=== PATIENT | female | born 1970 | race Two or more races ===

== ENCOUNTER 2020-04-27 07:02 | Outpatient (REF) | payer OTHER, SELFPAY ==
[2020-04-27 07:22] LABS: MANUAL DIFF FLAG NO
[2020-04-27 07:26] LABS: Basophils Percent Auto 0.4 % (0-2); Eosinophils Absolute Auto 0.2 X10*3/uL (0.0-0.4); Eosinophils Percent Auto 2.6 % (0-4); Hematocrit 43.3 % (37-47); Hemoglobin 14.3 g/dl (12.0-16.0); Imm Gran Abs Auto 0.02 X10*3/uL (0.00-0.03); Imm Gran Pct Auto 0.2 % (0.0-0.4); Lymphocytes Absolute Auto 2.6 X10*3/uL (1.2-4.9); Lymphocytes Percent Auto 32.8 % (20-40); Mean Corpuscular Hemoglobin 28.6 pg (27.0-33.0); Mean Corpuscular Volume 86.6 fL (80-98); Mean Platelet Volume 9.9 fL (9.4-12.3); Monocytes Absolute Auto 0.5 X10*3/uL (0.1-1.2); Monocytes Percent Auto 6.6 % (2-11); Neutrophils Absolute Auto 4.6 X10*3/uL (2.0-8.3); Neutrophils Percent Auto 57.4 % (45-73); Platelet Count 307 X10*3/uL (160-400); Red Cell Distribution Width 12.2 % (11.0-16.0)
[2020-04-27 07:56] LABS: Alanine Aminotransferase 21 U/L (0-31); Albumin Level 4.1 g/dL (3.5-5.0); Alkaline Phosphatase 98 U/L (39-117); Anion Gap 11 (12-20); Aspartate Amino Transferase 17 U/L (5-31); Bilirubin Total 0.4 mg/dL (0.0-1.0); Blood Urea Nitrogen 18 mg/dL (9-16); Calcium 9.5 mg/dL (8.4-10.2); Carbon Dioxide 28 mmol/L (22-29); Chloride 105 mmol/L (96-108); Cholesterol 271 mg/dL; Estimated Glomerular Filt Rate > 60; Glucose Fasting 107 mg/dL (60-99); HDL Cholesterol 50 mg/dL; LDL Cholesterol Calculated 160 mg/dl; Potassium 4.2 mmol/l (3.3-5.1); Sodium 140 mmol/L (135-145); Triglycerides 309 mg/dL
[2020-04-27 08:17] LABS: T4 Thyroxine 8.3 ug/dL (4.5-12.0); Thyroid Stimulating Hormone 2.07 mIU/mL (0.32-4.0); Vitamin D 25-OH Total 26.5 ng/mL (>30)
[2020-04-27 09:05] LABS: Folate 11.4 ng/mL (> or = 4.0); Vitamin B12 476 pg/mL (200-900)
== END 2020-04-27 07:03 | disposition home or self-care (01) ==
LOC: HO.LAB 07:02
PROVIDERS: PCP Internal Medicine; Visit Provider Internal Medicine
DX: E78.00 Pure hypercholesterolemia, unspecified (principal); K21.9 Gastro-esophageal reflux disease without esophagitis; F41.9 Anxiety disorder, unspecified; J30.9 Allergic rhinitis, unspecified; R73.01 Impaired fasting glucose
CPT/HCPCS: 36415; 80053; 80061; 82306; 82607; 82746; 84436; 84443; 85025

== ENCOUNTER 2020-05-18 07:38 | Outpatient (REF) | payer OTHER, SELFPAY ==
[2020-05-18 08:01] VITALS: BMI 26.7
[2020-05-18 08:02] VITALS: BP 120/68; PULSE 87; RESP 16; TEMP 36.6; O2SAT 98
[2020-05-18 08:55] VITALS: BP 105/72; PULSE 85; RESP 16; O2SAT 96
--- NOTE | 2020-05-18 09:41 | OP_ITS ---
SURGEON: Gee Pickens MD INDICATIONS: The patient is a 49-year-old female, who I had seen in the office because of the scalp cyst that she wanted removed. This measured about 1 cm in diameter cyst, one on the occipital area and one on the parietal area posteriorly. She understood technique of excision under local anesthesia. She was aware of the risks, benefits, and alternatives. PREOPERATIVE DIAGNOSIS: Scalp cyst x2. POSTOPERATIVE DIAGNOSIS: Scalp cyst x2. PROCEDURE PERFORMED: Excision of scalp cyst x2 under local anesthesia. ESTIMATED BLOOD LOSS: COMPLICATIONS: ANESTHESIA: ASSISTANTS: SPECIMENS: DESCRIPTION OF PROCEDURE: She was brought to the minor procedure room and placed in prone position. The area of the cyst was prepped and draped. Lidocaine 1% was used for local anesthesia. We started with the cyst on the occipital area. This cyst was infiltrated with lidocaine 1%. I made short incision in the skin overlying the cyst using blade #15, extended to the full-thickness skin and part of subcutaneous entered, the cyst capsule was visualized. I gently dissected the cyst capsule using sharp dissection with the Metzenbaum scissors until this was delivered and sent as specimen. I closed the incision with full-thickness nylon 3-0 interrupted sutures. We then proceeded to do the second cyst. Again, this area was prepped and draped. Lidocaine 1% was used for local anesthesia. An incision was made in the skin overlying this cyst. This was done using blade #15, it was carried down to full-thickness skin and subcutaneous fat. We excised the entire cyst with the capsule intact with sharp dissection using the scissors. This was all sent as specimen. I closed the incision with full-thickness nylon 3-0 sutures. Bacitracin dressings were applied on both incisions. She tolerated procedure well. There were no complications noted. She will be seen in the office for removal of sutures in about 2 weeks. She was given wound care instructions. MD EULA Gimenez/BENJAMINL / [id number]
== END 2020-05-18 07:39 | disposition home or self-care (01) ==
LOC: HO.MS 07:38
PROVIDERS: PCP Internal Medicine; Visit Provider Surgery
PROC: (CPT 11422; principal; 2020-05-18 08:00)
DX: L72.11 Pilar cyst (principal)
CPT/HCPCS: 11422; 11421; 88304

== ENCOUNTER 2020-05-22 12:02 | Outpatient (REF) | payer OTHER, SELFPAY ==
--- NOTE | 2020-05-22 | MM_ITS ---
EXAMINATION: MM DIAGNOSTIC DIGITAL BREAST TOMOSYNTHESIS, BILATERAL CLINICAL INFORMATION: Left breast screening. Right breast calcifications. The lifetime risk of breast cancer based on the Tyrer-Cuzick Model is 6.5%. COMPARISON: Mammography: 05/18/2019 and studies dating back to 03/23/2012. TECHNIQUE: Digital breast tomosynthesis is performed in both the craniocaudal and mediolateral oblique views along with computer-aided detection (CAD). Synthesized 2D images are generated from the tomosynthesis. Additional magnification views performed in mediolateral oblique and 90-degree mediolateral views. FINDINGS: There are scattered areas of fibroglandular density (ACR BI-RADS breast composition Category b). There is multiplicity and bilaterality of calcifications which are similar in appearance to previous studies. No new abnormal dominant mass or suspicious grouping of microcalcifications identified. Results are provided to the patient at time of visit by the technologist. MM/MM tomosynthesis diagnostic BI IMPRESSION: There are no significant changes from prior study. ASSESSMENT: BI-RADS 2: Benign. RECOMMENDATION: Routine annual mammography screening due in 12 months. This patient's information was entered into a reminder system with a target due date for their next mammogram.
== END 2020-05-22 12:03 | disposition home or self-care (01) ==
LOC: HO.MAMMO 12:02
PROVIDERS: PCP Internal Medicine; Visit Provider Internal Medicine
DX: R92.1 Mammographic calcification found on diagnostic imaging of breast (principal)
CPT/HCPCS: 77062; 77066

== ENCOUNTER → 2020-05-31 12:47 | Outpatient (REF) | payer OTHER, SELFPAY ==
--- NOTE | 2020-05-31 12:53 | ECG_ITS ---
Hook-up date: 2020-05-31 13:11:00 Duration: 24:54:00 Test Indications: PALPITATIONS Medications: 301061 QRS complexes * Ventricular ectopics which represent % of total QRS comp. 1 Supraventricular ectopics which represent <1 % of total QRS comp. * Paced QRS complexs which represent % of total QRS comp. VENTRICULAR ECTOPY * Isolated * Bigeminal Cycles * Couplets * Runs * Beats in Runs * Beats LONGEST at * BPM at :: -- * Beats FASTEST at * BPM at :: -- SUPRAVENTRICULAR ECTOPY 1 Isolated 0 Couplets 0 Runs 0 Beats in Runs * Beats LONGEST at * BPM at :: -- * Beats FASTEST at * BPM at :: -- HEART RATES 48 MIN at 03:10:30 2020-06-01 82 AVG 142 MAX at 07:16:55 2020-06-01 LONGEST RR 1.4240 secs at 03:19:39 2020-06-01 S-T LEVELS Channel 1 - 128 mm at 13:11:00 2020-05-31 - 128 mm at 13:11:00 2020-05-31 Channel 2 - 128 mm at 13:11:00 2020-05-31 - 128 mm at 13:11:00 2020-05-31 Channel 3 - 128 mm at 03:23:01 -- - 128 mm at 03:23:01 Underlying rhythm is sinus; Average ventricular rate 82/min; range 48-142/min; Sinus tachycardia noted but no other arrhythmias; Some correlation between sinus tachycardia and palpitations, but no correlation noted for chest pain symptoms. Referred By: Gigi Barrow Overread By: MISAEL SOLORZANO
== END ==
LOC: HO.CARD 12:47
PROVIDERS: Visit Provider Internal Medicine
DX: R00.2 Palpitations (principal); Z87.2 Personal history of diseases of the skin and subcutaneous tissue
CPT/HCPCS: 93225; 93226; 99212

== ENCOUNTER 2020-06-30 14:00 | Outpatient (RCR) | payer OTHER, SELFPAY ==
--- NOTE | 2020-08-21 09:34 | MHC.PT.DC ---
[facility] Office [place] Office [place] Office [address] Fransisco Dewitt [address] [phone] F: [phone] F: [phone] F: [phone] F: [phone] Physical Therapy Discharge Report Diagnosis: NECK PAIN Date of Surgery: N/A Date of Evaluation: 04/10/20 Date of Discharge: 06/30/20 Treatments to Date: 18 Cancellations to Date: 2 No Shows to Date: 2 Discharge Status: Improved Function Independent with HEP Discharge Summary: OVERALL BETTER SINCE SOC, HAS INCREASED AWARENESS POSTURE AND NECK CARE, HAS HEP AND INFO FOR [facility] [ End ] Electronically signed by: SUE ESQUIVEL PT Please sign and return to therapist. Thank you for your referral.
== END 2020-08-16 13:37 | disposition other institution (70) ==
LOC: HO.PT 14:00
PROVIDERS: Visit Provider Internal Medicine
DX: M54.2 Cervicalgia (principal)
CPT/HCPCS: 97012; 97014; 97033; 97035; 97110; 97140

== ENCOUNTER 2020-07-05 12:48 | Outpatient (REF) | payer OTHER, SELFPAY ==
--- NOTE | 2020-07-05 12:52 | XR_ITS ---
EXAMINATION: XR CHEST CLINICAL INFORMATION: Shortness of breath COMPARISON: Previous chest x-ray October 2017 TECHNIQUE: 2 views of the chest were obtained. FINDINGS: No significant abnormality is noted involving the heart, lungs, mediastinum, bony thorax or soft tissues. XR/XR chest 2V IMPRESSION: Unremarkable examination.
== END 2020-07-05 12:49 | disposition home or self-care (01) ==
LOC: HO.XRAY 12:48
PROVIDERS: Visit Provider Internal Medicine
DX: R06.02 Shortness of breath (principal)
CPT/HCPCS: 71046

== ENCOUNTER → 2020-07-07 08:22 | Outpatient (BNVA) | payer OTHER, SELFPAY | PROVIDERS: PCP Internal Medicine; Referring Provider Internal Medicine; Visit Provider Internal Medicine Gastroenterology | DX: Z76.89 Persons encountering health services in other specified circumstances (principal) ==

== ENCOUNTER 2020-07-10 14:44 | Outpatient (REF) | payer OTHER, SELFPAY ==
--- NOTE | 2020-07-10 | PFT_ITS ---
FLOWS: FEV1 of 97% of predicted at 2.72 L. FVC 94% of predicted at 3.34 L. FEV1 to FVC ratio of 0.81. No bronchodilator response. LUNG VOLUMES: Total lung capacity 96% of predicted at 4.86 L. Residual volume 86% of predicted at 1.56 L. Slow vital capacity 101% of predicted at 3.30 L. Expiratory reserve volume 50% of predicted at 0.52 L. Diffusion capacity is mildly decreased, diffusion capacity corrects to normal after adjustment for alveolar ventilation. In comparison to pulmonary function test performed in January of 2015, FVC, FEV1, TLC, and ERV have been without significant changes; residual volume has increased by 0.39 L; slow vital capacity has decreased by 0.29 L; diffusion capacity has decreased by 1.79 mL/minute/mmHg. IMPRESSION: No obstructive or restrictive ventilatory defect. No bronchodilator response. Decreased expiratory reserve volume suggests extrathoracic restriction likely secondary to abdominal obesity. MD MAIKOL Loera/MODL / [id number] MTDD
== END 2020-07-10 14:45 | disposition home or self-care (01) ==
LOC: HO.RESP 14:44
PROVIDERS: PCP Internal Medicine; Visit Provider Internal Medicine
DX: R06.02 Shortness of breath (principal)
CPT/HCPCS: 94060; 94727; 94729

== ENCOUNTER 2020-08-03 07:13 | Outpatient (REF) | payer OTHER, SELFPAY ==
[2020-08-03 08:28] LABS: Alanine Aminotransferase 23 U/L (0-31); Albumin Level 4.3 g/dL (3.5-5.0); Alkaline Phosphatase 72 U/L (39-117); Anion Gap 15 (12-20); Aspartate Amino Transferase 17 U/L (5-31); Bilirubin Total 0.7 mg/dL (0.0-1.0); Blood Urea Nitrogen 23 mg/dL (9-16); Calcium 9.7 mg/dL (8.4-10.2); Carbon Dioxide 27 mmol/L (22-29); Chloride 104 mmol/L (96-108); Cholesterol 189 mg/dL; Estimated Glomerular Filt Rate > 60; Glucose Random 110 mg/dL (60-115); HDL Cholesterol 53 mg/dL; LDL Cholesterol Calculated 109 mg/dl; Potassium 4.7 mmol/l (3.3-5.1); Sodium 141 mmol/L (135-145); Total Protein 7.3 g/dL (6.5-8.0); Triglycerides 137 mg/dL
[2020-08-03 08:43] LABS: Estimated Average Glucose 120 mg/dL; Hemoglobin A1c % 5.8 %
== END 2020-08-03 07:14 | disposition home or self-care (01) ==
LOC: HO.LAB 07:13
PROVIDERS: PCP Internal Medicine; Visit Provider Internal Medicine
DX: R73.02 Impaired glucose tolerance (oral) (principal); E78.00 Pure hypercholesterolemia, unspecified
CPT/HCPCS: 36415; 80053; 80061; 83036

== ENCOUNTER 2020-08-18 13:14 | Outpatient (REF) | payer OTHER, SELFPAY ==
--- NOTE | 2020-08-18 13:24 | XR_ITS ---
EXAMINATION: XR TOES, RIGHT CLINICAL INFORMATION: Pain right toe. COMPARISON: None TECHNIQUE: 3 views of the right toes were obtained. FINDINGS: There are no fractures or dislocations. No joint effusion is identified. No bone, joint or soft tissue abnormality is demonstrated. XR/XR toe RT min 2V IMPRESSION: Unremarkable right fifth toe exam.
== END 2020-08-18 13:15 | disposition home or self-care (01) ==
LOC: HO.XRAY 13:14
PROVIDERS: Visit Provider Internal Medicine
DX: M79.674 Pain in right toe(s) (principal)
CPT/HCPCS: 73660

== ENCOUNTER → 2020-08-30 08:16 | Outpatient (BNVA) | payer OTHER, SELFPAY | PROVIDERS: PCP Internal Medicine; Visit Provider Internal Medicine Gastroenterology ==

== ENCOUNTER 2020-09-25 07:37 | Outpatient (REF) | payer OTHER, SELFPAY ==
--- NOTE | ~2020-09-25 | US_ITS ---
EXAMINATION: US ABDOMEN COMPLETE CLINICAL INFORMATION: Abdominal distention. COMPARISON: Renal ultrasound dated 05/27/2017. Ultrasound abdomen complete dated 09/09/2016. KUB dated 10/14/2013. CT abdomen and pelvis without contrast dated 12/20/2008. TECHNIQUE: Real-time imaging of the abdominal viscera. FINDINGS: PANCREAS: Not well visualized due to bowel gas. ABDOMINAL AORTA: The proximal, mid, and distal segments are normal in caliber. INFERIOR VENA CAVA: Visualized portions are normal. LIVER: The liver is normal in size. The liver contour is normal. Liver echotexture is normal. No focal hepatic lesion. There is no intrahepatic biliary duct dilatation seen. GALLBLADDER: Normal. The gallbladder is physiologically distended without evidence of stones, sludge, polyps, wall thickening or pericholecystic fluid. COMMON BILE DUCT: Normal in caliber measuring 0.4 cm in diameter. RIGHT KIDNEY: Normal. No hydronephrosis. No renal calculi or focal parenchymal lesions. The kidney measures 11.2 cm in maximum dimension. LEFT KIDNEY: Normal. No hydronephrosis. No renal calculi or focal parenchymal lesions. The kidney measures 11.0 cm in maximum dimension. SPLEEN: Normal. The spleen measures 9.6 cm in maximum dimension. FREE FLUID: None. US/US abdomen complete IMPRESSION: Limited visualization of the pancreas otherwise unremarkable exam.
== END 2020-09-25 07:38 | disposition home or self-care (01) ==
LOC: HO.US 07:37
PROVIDERS: Visit Provider Internal Medicine Gastroenterology
DX: R10.9 Unspecified abdominal pain (principal); R14.0 Abdominal distension (gaseous)
CPT/HCPCS: 76700

== ENCOUNTER → 2020-10-06 08:21 | Outpatient (BNVA) | payer OTHER, SELFPAY | PROVIDERS: PCP Internal Medicine; Visit Provider Internal Medicine Gastroenterology ==

== ENCOUNTER 2020-10-12 07:24 | Emergency (ER) | payer OTHER, SELFPAY ==
--- NOTE | ~2020-10-12 | CT_ITS ---
EXAMINATION: CT ABDOMEN AND PELVIS WITH CONTRAST CLINICAL INFORMATION: Right-sided abdominal tenderness/pain. Bloating. COMPARISON: CT abdomen and pelvis 04/04/2008 pelvic ultrasound 12/24/2018, renal ultrasound 05/27/2017 TECHNIQUE: Multidetector volumetric images were obtained from the superior aspect of the liver through the pubic symphysis following administration 85 mL of Omnipaque 350 intravenous contrast. Sagittal and coronal reformatted images were obtained on the technologist's workstation. Oral contrast: No This CT examination was performed using dose optimization techniques as appropriate, variously including the following: *Automated exposure control *Adjustment of mA and/or kV according to patient size (this includes techniques or standardized protocols for targeted exams where dose is matched to indication/reason for exam; i.e. extremities or head) *Use of iterative reconstruction technique DLP: 492 mGy-cm FINDINGS: LUNG BASES: The visualized lung bases are unremarkable. LIVER, GALLBLADDER, AND BILIARY TREE: The liver is normal in size, shape, and attenuation. No focal hepatic lesion or biliary ductal dilatation is present. The gallbladder is unremarkable with no evidence of radiopaque gallstones, gallbladder wall thickening, or obvious pericholecystic inflammatory changes. PANCREAS: Unremarkable. SPLEEN: Unremarkable. ADRENAL GLANDS: Unremarkable. KIDNEYS AND URETERS: The kidneys are normal in size, shape, and attenuation. No hydronephrosis, hydroureter, or calculi seen. No perinephric stranding. BLADDER: Normal partially distended bladder contour. GASTROINTESTINAL TRACT: The small and large bowel are unremarkable. The appendix is unremarkable. ABDOMINAL WALL: No significant hernia is appreciated. LYMPH NODES: Normal. VASCULAR: Minimal eccentric wall calcification of the aorta. The aorta and its branch vessels are otherwise unremarkable. PELVIC VISCERA: The uterus and adnexa are unremarkable. There is trace pelvic fluid which may be physiologic OSSEOUS STRUCTURES: Unremarkable. CT/CT abdomen pelvis w con IMPRESSION: There is trace pelvic free fluid which may be physiologic in a patient of this age. Essentially no acute abnormality of the abdomen or pelvis is identified to account for the patient's current presentation.
[2020-10-12 07:51] VITALS: BP 103/59; PULSE 81; RESP 16; TEMP 37; O2SAT 96; BMI 25.6
[2020-10-12 08:25] LABS: MANUAL DIFF FLAG NO
[2020-10-12 08:26] LABS: Basophils Percent Auto 0.3 % (0-2); Eosinophils Absolute Auto 0.1 X10*3/uL (0.0-0.4); Eosinophils Percent Auto 1.3 % (0-4); Hemoglobin 14.4 g/dl (12.0-16.0); Imm Gran Abs Auto 0.02 X10*3/uL (0.00-0.03); Imm Gran Pct Auto 0.3 % (0.0-0.4); Lymphocytes Absolute Auto 2.4 X10*3/uL (1.2-4.9); Lymphocytes Percent Auto 31.3 % (20-40); Mean Corpuscular HGB Conc 32.7 g/dl (31.0-35.0); Mean Corpuscular Hemoglobin 28.6 pg (27.0-33.0); Mean Corpuscular Volume 87.5 fL (80-98); Mean Platelet Volume 9.8 fL (9.4-12.3); Monocytes Absolute Auto 0.4 X10*3/uL (0.1-1.2); Monocytes Percent Auto 5.3 % (2-11); Neutrophils Absolute Auto 4.8 X10*3/uL (2.0-8.3); Neutrophils Percent Auto 61.5 % (45-73); Platelet Count 293 X10*3/uL (160-400); Red Blood Count 5.03 X10*6/uL (4.20-5.50); Red Cell Distribution Width 12.3 % (11.0-16.0); White Blood Count 7.8 X10*3/uL (4.8-10.8)
--- NOTE | 2020-10-12 08:35 | ED.ABDPAIN ---
HPI - Abdominal Pain General Chief Complaint: Abdominal Pain Stated Complaint: abd pain Time Seen by Provider: 10/12/20 08:23 Source: patient Mode of arrival: ambulatory History of Present Illness HPI narrative: 49-year-old female with a past medical history of anxiety, erosive esophagitis, GERD, hemorrhoids, hyperlipidemia, glucose tolerance, IBS, migraines, vitamin-B deficiency, presenting to the ED complaining of acute on chronic abdominal pain/bloating with intermittent constipation and associated nausea. Admits to taking OTC medications and prescribed medications from Telehealth GI visit without relief. Last BM this morning. Denies vomiting, diarrhea, dysuria/hematuria, frequency, vaginal bleeding/discharge Of note patient recently saw GI in 10/06, was started on Flagyl for bloating, a probiotic, and pantoprazole, however reports has been noncompliant with Flagyl due to side effects of tachycardia. Abdomen ultrasound on 09/25/2020 WNL Related Data Home Medications Medication Instructions Recorded Confirmed ascorbic acid (vitamin C) 1,000 mg 1 g PO DAILY tab 04/27/20 10/06/20 tablet blood pressure monitor #1 ea 04/27/20 10/06/20 cetirizine 10 mg tablet 10 mg PO DAILY 04/27/20 10/06/20 Previous Rx's Medication Instructions Recorded lactobacillus combination no.9 4 4,000 mmu cells PO DAILY 30 Days 07/07/20 billion cell capsule #30 cap simethicone 80 mg chewable tablet 80 mg PO TID-QID PRN 30 Days #120 07/07/20 tab MDD 6 cholecalciferol (vitamin D3) 50 50 mcg PO DAILY #30 tab 08/15/20 mcg (2,000 unit) tablet fluticasone propionate 50 2 spray INTRANASAL DAILY PRN #16 ml 08/24/20 mcg/actuation nasal spray,suspension magnesium oxide 400 mg PO DAILY 30 Days #30 tab 08/30/20 pantoprazole 40 mg tablet,delayed 40 mg PO DAILY #30 tab 08/31/20 release atorvastatin 10 mg tablet 10 mg PO DAILY #90 tab 09/12/20 alprazolam 0.25 mg tablet 0.25 mg PO DAILY #20 tab 09/15/20 Saccharomyces boulardii 250 mg 250 mg PO BID 30 Days #60 cap 10/06/20 capsule metronidazole 250 mg tablet 250 mg PO Q8H 10 Days #30 tab 10/06/20 fenofibrate 160 mg tablet 160 mg PO DAILY #30 tab 10/08/20 dicyclomine 20 mg PO QID PRN #14 tab 10/12/20 Allergies Allergy/AdvReac Type Severity Reaction Status Date / Time latex [Latex] Allergy Mild SWELLING/IT Verified 10/06/20 08:22 ROSSANA Sulfa (Sulfonamide Allergy Mild SWELLING/ITCHING, Verified 10/06/20 08:22 Antibiotics) pruritis sulfamethoxazole Allergy Unknown ITCHY/HIVES Verified 10/06/20 08:22 [From BACTRIM] trimethoprim [From BACTRIM] Allergy Unknown ITCHY/HIVES Verified 10/06/20 08:22 metoclopramide [From REGLAN] AdvReac Unknown AGITATION Verified 10/06/20 08:22 Review of Systems Review of Systems Constitutional: No Fever, No Chills Cardiovascular: No Chest Pain, No SOB Respiratory: No Cough Gastrointestinal: + Nausea, No Vomiting, No Diarrhea, + Constipation, + Abdominal pain Genitourinary: No irregular bleeding, No Dysuria, No Flank Pain, No Urinary Flow Changes Musculoskeletal: No joint pain, No Myalgias, No Joint Swelling Skin: No Skin Lesions, No rash Yes all other systems are reviewed and are negative Physical Exam Vital Signs: Vital Signs: Last Vital Signs Temp 98.6 F 10/12/20 07:51 Pulse 80 10/12/20 10:00 Resp 16 10/12/20 10:00 BP 118/63 10/12/20 10:00 Pulse Ox 98 10/12/20 10:00 Body Mass Index 25.6 Const: General: cooperative, healthy appearing, comfortable and no acute distress Orientation/consciousness: patient oriented x3 Limitations: no limitations HENMT: Head: Yes normal to inspection Ears: hearing grossly normal bilaterally General nose exam: Normal external nose present Face and sinus: Yes normal facial exam Eyes: General: appearance normal, both eyes and all related structures EOM: EOMs intact bilaterally Neck: Neck: Yes normal visual inspection Resp: Effort & Inspection: normal respiratory effort Cardio: Rate: regular rate GI: Inspection: Yes normal to inspection Palpation (GI): Soft to palpation, Tenderness to palpation present (GI) in the epigastrum and in the RLQ, no guarding and not rigid : General: Yes no CVA tenderness Back/Spine/Pelvis: Back: no CVA tenderness Skin: Rashes: no rashes Wounds: no wounds Neuro: General: patient oriented x3 Gait exam (Neuro): Normal gait present Extrem: General: Yes normal to inspection Course Course Course Narrative: -no leukocytosis, labs otherwise unremarkable, UA negative -1216-- CT abdomen pelvis w con IMPRESSION: There is trace pelvic free fluid which may be physiologic in a patient of this age. Essentially no acute abnormality of the abdomen or pelvis is identified to account for the patient's current presentation. >>results discussed with patient including worrisome signs and symptoms and strict return precautions. Patient is to follow-up with her PCP/GI, an OBGYN. She verbalized understanding and feels safe for discharge home MDM - Abdominal Pain MDM Narrative Medical decision making narrative: 49-year-old female with a past medical history of anxiety, erosive esophagitis, GERD, hemorrhoids, hyperlipidemia, glucose tolerance, IBS, migraines, vitamin-B deficiency, presenting to the ED complaining of acute on chronic abdominal pain/bloating with intermittent constipation and associated nausea. On exam VSS, NAD/well-appearing, abdomen soft w/RLQ/epigastric TTP, no rebound or guarding. Concern for constipation vs IBS vs GERD/gastritis vs appendicitis. Lower concern for SBO with BM today, or diverticulitis. Rule UTI. Low concern for renal stone/pyelo Plan: Labs, UA, CT AP, IVF, symptomatic treatment, reassess Lab Data Result diagrams: 10/12/20 08:19 10/12/20 08:18 Labs: Lab Results 10/12/20 10/12/20 10/12/20 Range/Units 08:18 08:18 08:19 WBC 7.8 (4.8-10.8) X10*3/uL RBC 5.03 (4.20-5.50) X10*6/uL Hgb 14.4 (12.0-16.0) g/dl Hct 44.0 (37-47) % MCV 87.5 (80-98) fL MCH 28.6 (27.0-33.0) pg MCHC 32.7 (31.0-35.0) g/dl RDW 12.3 (11.0-16.0) % Plt Count 293 (160-400) X10*3/uL MPV 9.8 (9.4-12.3) fL Immature Gran % (Auto) 0.3 (0.0-0.4) % Neut % (Auto) 61.5 (45-73) % Lymph % (Auto) 31.3 (20-40) % [place] % (Auto) 5.3 (2-11) % Eos % (Auto) 1.3 (0-4) % Baso % (Auto) 0.3 (0-2) % Lymph # (Auto) 2.4 (1.2-4.9) X10*3/uL [place] # (Auto) 0.4 (0.1-1.2) X10*3/uL Eos # (Auto) 0.1 (0.0-0.4) X10*3/uL Baso # (Auto) 0.0 (0.0-0.2) X10*3/uL Abs Immat Gran (auto) 0.02 (0.00-0.03) X10*3/uL Absolute Neuts (auto) 4.8 (2.0-8.3) X10*3/uL Absolute Nucleated RBC 0.000 (0.0-0.012) X10*3/uL Nucleated RBC % (auto) 0.0 (0.0-0.2) /100WBC Hold Blue Top SEE NOTE Sodium 137 (135-145) mmol/L Potassium 4.2 (3.3-5.1) mmol/L Chloride 102 (96-108) mmol/L Carbon Dioxide 28 (22-29) mmol/L Anion Gap 11 L (12-20) BUN 15 (9-16) mg/dL Creatinine 0.75 (0.5-1.4) mg/dL Estim Creat Clear Calc 88.0 Estimated GFR > 60 Random Glucose 90 (60-115) mg/dL Calcium 9.3 (8.4-10.2) mg/dL Magnesium 2.0 (1.6-2.6) mg/dL Total Bilirubin 0.5 (0.0-1.0) mg/dL AST 17 (5-31) U/L ALT 24 (0-31) U/L Alkaline Phosphatase 104 D (39-117) U/L Total Protein 7.0 (6.5-8.0) g/dL Albumin 4.2 (3.5-5.0) g/dL Lipase 70 (8-78) U/L Urine Color Urine Appearance Urine pH (5.0-8.0) Ur Specific [place] (1.005-1.025) Urine Protein (NEG-TRACE) MG/DL Urine Glucose (UA) (NEG) MG/DL Urine Ketones (NEG) MG/DL Urine Blood (NEG) Urine Nitrite (NEG) Ur Leukocyte Esterase (NEG) Urine RBC (0) /HPF Urine WBC (0-4) /HPF Ur Squamous Epith Cells /LPF Urine Bacteria /LPF 10/12/20 Range/Units 08:20 WBC (4.8-10.8) X10*3/uL RBC (4.20-5.50) X10*6/uL Hgb (12.0-16.0) g/dl Hct (37-47) % MCV (80-98) fL MCH (27.0-33.0) pg MCHC (31.0-35.0) g/dl RDW (11.0-16.0) % Plt Count (160-400) X10*3/uL MPV (9.4-12.3) fL Immature Gran % (Auto) (0.0-0.4) % Neut % (Auto) (45-73) % Lymph % (Auto) (20-40) % [place] % (Auto) (2-11) % Eos % (Auto) (0-4) % Baso % (Auto) (0-2) % Lymph # (Auto) (1.2-4.9) X10*3/uL [place] # (Auto) (0.1-1.2) X10*3/uL Eos # (Auto) (0.0-0.4) X10*3/uL Baso # (Auto) (0.0-0.2) X10*3/uL Abs Immat Gran (auto) (0.00-0.03) X10*3/uL Absolute Neuts (auto) (2.0-8.3) X10*3/uL Absolute Nucleated RBC (0.0-0.012) X10*3/uL Nucleated RBC % (auto) (0.0-0.2) /100WBC Hold Blue Top Sodium (135-145) mmol/L Potassium (3.3-5.1) mmol/L Chloride (96-108) mmol/L Carbon Dioxide (22-29) mmol/L Anion Gap (12-20) BUN (9-16) mg/dL Creatinine (0.5-1.4) mg/dL Estim Creat Clear Calc Estimated GFR Random Glucose (60-115) mg/dL Calcium (8.4-10.2) mg/dL Magnesium (1.6-2.6) mg/dL Total Bilirubin (0.0-1.0) mg/dL AST (5-31) U/L ALT (0-31) U/L Alkaline Phosphatase (39-117) U/L Total Protein (6.5-8.0) g/dL Albumin (3.5-5.0) g/dL Lipase (8-78) U/L Urine Color YELLOW Urine Appearance CLEAR Urine pH 5.5 (5.0-8.0) Ur Specific [place] <= 1.005 (1.005-1.025) Urine Protein NEG (NEG-TRACE) MG/DL Urine Glucose (UA) NEG (NEG) MG/DL Urine Ketones NEG (NEG) MG/DL Urine Blood 1+ H (NEG) Urine Nitrite NEG (NEG) Ur Leukocyte Esterase NEG (NEG) Urine RBC 0-2 (0) /HPF Urine WBC 0-2 (0-4) /HPF Ur Squamous Epith Cells TRACE /LPF Urine Bacteria NONE /LPF Discharge Plan Discharge Clinical Impression: Abdominal pain Patient Disposition: Home, Self-Care Instructions: Abdominal Pain (ED) Additional Instructions: Your blood work was unremarkable today in the ED, urine did not show an infection Your CT scan did not show any acute findings to explain her abdominal pain/bloating. You do have a trace amount of pelvic free fluid which can be normal for your age, this should be followed up with her OBGYN Ruth will help with muscle spasming, and take as needed for discomfort Continue taking other prescribed medications from her GI doctor/PCP It is important that he follow up with her GI doctor as well as PCP If symptoms persist or worsen, you have fever, are unable to eat or drink, or have persistent nausea/vomiting return to the ED Prescriptions: New dicyclomine 20 mg tablet 20 mg PO QID PRN (Reason: abdominal discomfort) Qty: 14 RF: 0 No Action cholecalciferol (vitamin D3) 50 mcg (2,000 unit) tablet 50 mcg PO DAILY Qty: 30 RF: 11 pantoprazole 40 mg tablet,delayed release (DR/EC) 40 mg PO DAILY Qty: 30 RF: 1 atorvastatin 10 mg tablet 10 mg PO DAILY Qty: 90 RF: 2 fenofibrate 160 mg tablet 160 mg PO DAILY Qty: 30 RF: 2 (DME) blood pressure monitor [Blood Pressure Kit] Kit See Rx Instructions .ROUTE .MEDSUPPLY Qty: 1 RF: 0 cetirizine [Zyrtec] 10 mg tablet 10 mg PO DAILY RF: 0 ascorbic acid (vitamin C) 1,000 mg tablet 1 g PO DAILY RF: 0 fluticasone propionate 50 mcg/actuation spray,suspension 2 spray intranasal DAILY PRN (Reason: allergy symptoms) Qty: 16 RF: 3 alprazolam 0.25 mg tablet 0.25 mg PO DAILY Qty: 20 RF: 0 simethicone [Gas Relief (simethicone)] 80 mg tablet,chewable 80 mg PO TID-QID MDD 6 PRN (Reason: abdominal distention) 30 Days Qty: 120 RF: 4 Adult 50 Plus Probiotic 4 billion cell capsule 4,000 mmu cells PO DAILY 30 Days Qty: 30 RF: 0 magnesium oxide 400 mg magnesium tablet 400 mg PO DAILY 30 Days Qty: 30 RF: 3 metronidazole 250 mg tablet 250 mg PO Q8H 10 Days Qty: 30 RF: 0 Saccharomyces boulardii [Daily Probiotic (S. boulardii)] 250 mg capsule 250 mg PO BID 30 Days Qty: 60 RF: 1 Referrals: Ivania Ferreira MD [Physician] - 1 week Asa Luna MD [Physician] - 1 week [facility] Past Medical History Attestation statement: The following information was validated with the patient. Medical History (Updated 10/12/20 @ 12:17 by VIRGEN Cortez) Abdominal bloating with cramps Anxiety Benign hematuria Cervical disc herniation Erosive esophagitis GERD (gastroesophageal reflux disease) Hemorrhoids Hypercholesterolemia Impaired glucose tolerance Irritable bowel syndrome Lateral meniscal tear Migraine Multiple thyroid nodules Restrictive lung disease Scalp cyst Thyroid nodule Vitamin B12 deficiency Vitamin D deficiency Surgical History H/O esophagogastroduodenoscopy History of lumpectomy of left breast Hx of colonoscopy Hx of tubal ligation S/P excision of lipoma Family History Family History Father Skin cancer Mother Skin cancer High blood pressure Heart problem Maternal Grandfather Skin cancer Cancer Social History Social History Household Members: None Alcohol intake: unknown Smoking Status: Unknown if ever smoked Use of substances other than those prescribed or required for medical reasons: No Advance Directives: No Advance Directives Information Provided: No Current occupational status: employed 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
[2020-10-12 08:38] LABS: Glucose Urine UA NEG (NEG); Leukocyte Esterase Urine NEG (NEG); Nitrite Urine NEG (NEG); PH 5.5 (5.0-8.0); Specific Gravity - Urine <= 1.005 (1.005-1.025); Urine Blood 1+ (NEG); Urine Ketones NEG (NEG); Urine Protein NEG (NEG-TRACE)
[2020-10-12 08:39] LABS: Appearance Urine CLEAR; Color Urine YELLOW
[2020-10-12 08:45] LABS: RBC Urine 0-2 /HPF (0); Squamous Epithelial Cell Urine TRACE /LPF; WBC Urine 0-2 /HPF (0-4)
[2020-10-12 09:00] LABS: Alanine Aminotransferase 24 U/L (0-31); Albumin Level 4.2 g/dL (3.5-5.0); Alkaline Phosphatase 104 U/L (39-117); Anion Gap 11 (12-20); Aspartate Amino Transferase 17 U/L (5-31); Bilirubin Total 0.5 mg/dL (0.0-1.0); Blood Urea Nitrogen 15 mg/dL (9-16); Calcium 9.3 mg/dL (8.4-10.2); Carbon Dioxide 28 mmol/L (22-29); Chloride 102 mmol/L (96-108); Estimated Glomerular Filt Rate > 60; Glucose Random 90 mg/dL (60-115); Potassium 4.2 mmol/L (3.3-5.1); Sodium 137 mmol/L (135-145)
[2020-10-12] MEDS: 0.9 % Sodium Chloride 1,000 ML 999 ML IVCONT (09:10)
[2020-10-12] MEDS: ondansetron HCL 4 MG/2 ML VIAL IVPUSH (09:10)
[2020-10-12] MEDS: Magnesium Hydrox/Alum Hydrox 30 ML ORAL.SUSP PO (09:11)
[2020-10-12] MEDS: Famotidine/PF 20 MG/2 ML VIAL IVPUSH (09:11)
[2020-10-12] MEDS: Lidocaine HCl Viscous 2 % 15 ML SOLUTION MUCOUS MEM (09:11)
[2020-10-12] MEDS: Dicyclomine HCl 10 MG CAPSULE 20 MG PO (09:11)
--- NOTE | 2020-10-12 09:22 | PC.NURSE ---
Patient arrived complaining of abdominal pain and bloating. Reports issues with constipation. Abdomen soft but reports tender with palpation. Alert and oriented. Respirations regular and even. Skin PWD. IV established and labs drawn. Patient tolerated well. Medicated with zofran, famotidine, GI cocktail, and bentyl. NS 1L running at this time. Will monitor for improvement.
[2020-10-12 09:40] LABS: Lipase 70 U/L (8-78)
[2020-10-12 10:00] VITALS: BP 118/63; PULSE 80; RESP 16; O2SAT 98
--- NOTE | 2020-10-12 10:55 | PC.NURSE ---
Patient reports improvement in abdominal pain, but reports the pain is still there. No abdominal guarding noted. Remains alert and oriented. Able to independently ambulate to restroom to void. Respirations regular and even. Skin PWD. Will continue to monitor.
== END 2020-10-12 12:36 | disposition home or self-care (01) ==
PROVIDERS: Physician Assistant; Emergency Provider Emergency Medicine Emergency Medical Services; PCP Internal Medicine
DX: R10.31 Right lower quadrant pain (principal); K21.9 Gastro-esophageal reflux disease without esophagitis; E78.5 Hyperlipidemia, unspecified
CPT/HCPCS: 36415; 74177; 80053; 81001; 83690; 83735; 85025; 96361; 96374; 96375; 99284; J2405; Q9967

== ENCOUNTER 2020-10-18 12:59 | Outpatient (REF) | payer OTHER, SELFPAY ==
--- NOTE | ~2020-10-18 | US_ITS ---
EXAMINATION: PELVIC ULTRASOUND CLINICAL INFORMATION: Pain. Fluid seen in pelvis on CT COMPARISON: Previous CT of the abdomen and pelvis September 2017 and previous pelvic ultrasound November 2018 TECHNIQUE: Transabdominal and transvaginal pelvic ultrasound was performed. Transvaginal exam performed for better visualization of the uterus and ovaries. FINDINGS: The uterus is anteverted and measures 7.3 x 1.9 x 4.1 cm in dimension. No focal uterine lesion is seen. Endometrial thickness measures 0.8 cm. This may be slightly thickened in a postmenopausal patient. Correlation with patient's menstrual history is recommended. There are nabothian cysts in the cervix. The ovaries are not identified. No adnexal mass is seen. There is no fluid in the pelvis. US/US pelvic complete IMPRESSION: Normal-appearing uterus. Endometrial thickness measures 8 mm. This would be slightly thickened in a postmenopausal patient. Correlation with patient's menstrual history recommended. Ovaries not seen. No fluid in the pelvis.
--- NOTE | ~2020-10-18 | US_ITS ---
EXAMINATION: PELVIC ULTRASOUND CLINICAL INFORMATION: Pain. Fluid seen in pelvis on CT COMPARISON: Previous CT of the abdomen and pelvis September 2017 and previous pelvic ultrasound November 2018 TECHNIQUE: Transabdominal and transvaginal pelvic ultrasound was performed. Transvaginal exam performed for better visualization of the uterus and ovaries. FINDINGS: The uterus is anteverted and measures 7.3 x 1.9 x 4.1 cm in dimension. No focal uterine lesion is seen. Endometrial thickness measures 0.8 cm. This may be slightly thickened in a postmenopausal patient. Correlation with patient's menstrual history is recommended. There are nabothian cysts in the cervix. The ovaries are not identified. No adnexal mass is seen. There is no fluid in the pelvis. US/US transvaginal IMPRESSION: Normal-appearing uterus. Endometrial thickness measures 8 mm. This would be slightly thickened in a postmenopausal patient. Correlation with patient's menstrual history recommended. Ovaries not seen. No fluid in the pelvis.
== END 2020-10-18 13:00 | disposition home or self-care (01) ==
LOC: HO.US 12:59
PROVIDERS: Visit Provider Obstetrics & Gynecology
DX: R10.84 Generalized abdominal pain (principal); R14.0 Abdominal distension (gaseous); Z78.0 Asymptomatic menopausal state; R93.5 Abnormal findings on diagnostic imaging of other abdominal regions, including retroperitoneum
CPT/HCPCS: 76830; 76856

== ENCOUNTER → 2020-11-06 11:17 | Outpatient (BNVA) | payer OTHER, SELFPAY | PROVIDERS: PCP Internal Medicine; Visit Provider Internal Medicine Gastroenterology | DX: K58.9 Irritable bowel syndrome, unspecified (principal); K21.9 Gastro-esophageal reflux disease without esophagitis | CPT/HCPCS: 99212 ==

== ENCOUNTER 2020-11-13 06:55 | Outpatient (REF) | payer OTHER, SELFPAY ==
[2020-11-13 08:33] LABS: MANUAL DIFF FLAG NO
[2020-11-13 08:44] LABS: Basophils Percent Auto 0.6 % (0-2); Eosinophils Absolute Auto 0.2 X10*3/uL (0.0-0.4); Eosinophils Percent Auto 2.3 % (0-4); Hematocrit 44.1 % (37-47); Hemoglobin 14.1 g/dl (12.0-16.0); Imm Gran Abs Auto 0.03 X10*3/uL (0.00-0.03); Imm Gran Pct Auto 0.5 % (0.0-0.4); Lymphocytes Absolute Auto 2.5 X10*3/uL (1.2-4.9); Lymphocytes Percent Auto 38.6 % (20-40); Mean Corpuscular Hemoglobin 28.3 pg (27.0-33.0); Mean Corpuscular Volume 88.6 fL (80-98); Mean Platelet Volume 10.6 fL (9.4-12.3); Monocytes Absolute Auto 0.4 X10*3/uL (0.1-1.2); Monocytes Percent Auto 6.5 % (2-11); Neutrophils Absolute Auto 3.3 X10*3/uL (2.0-8.3); Neutrophils Percent Auto 51.5 % (45-73); Platelet Count 289 X10*3/uL (160-400); Red Blood Count 4.98 X10*6/uL (4.20-5.50); Red Cell Distribution Width 12.5 % (11.0-16.0); White Blood Count 6.5 X10*3/uL (4.8-10.8)
[2020-11-13 09:10] LABS: Estimated Average Glucose 114 mg/dL; Hemoglobin A1c % 5.6 %
[2020-11-13 09:25] LABS: Free T4 (Free Thyroxine) 0.97 ng/dL (0.71-1.85); Thyroid Stimulating Hormone 1.24 uIU/mL (0.32-4.0); Vitamin D 25-OH Total 34.3 ng/mL (>30)
[2020-11-13 09:33] LABS: Alanine Aminotransferase 28 U/L (0-31); Albumin Level 4.2 g/dL (3.5-5.0); Alkaline Phosphatase 91 U/L (39-117); Anion Gap 13 (12-20); Aspartate Amino Transferase 20 U/L (5-31); Bilirubin Total 0.6 mg/dL (0.0-1.0); Blood Urea Nitrogen 15 mg/dL (9-16); Calcium 9.5 mg/dL (8.4-10.2); Carbon Dioxide 27 mmol/L (22-29); Chloride 108 mmol/L (96-108); Cholesterol 229 mg/dL; Estimated Glomerular Filt Rate > 60; Glucose Random 106 mg/dL (60-115); HDL Cholesterol 51 mg/dL; LDL Cholesterol Calculated 149 mg/dl; Potassium 4.9 mmol/L (3.3-5.1); Sodium 143 mmol/L (135-145); Triglycerides 149 mg/dL
[2020-11-13 09:40] LABS: Folate 10.6 ng/mL (> or = 4.0); Vitamin B12 400 pg/mL (200-900)
== END 2020-11-13 06:56 | disposition home or self-care (01) ==
LOC: HO.LAB 06:55
PROVIDERS: PCP Internal Medicine; Visit Provider Internal Medicine
DX: R73.02 Impaired glucose tolerance (oral) (principal); E78.00 Pure hypercholesterolemia, unspecified
CPT/HCPCS: 36415; 80053; 80061; 82306; 82607; 82746; 83036; 84439; 84443; 85025

== ENCOUNTER 2020-12-13 23:02 | Emergency (ER) | payer OTHER, SELFPAY ==
[2020-12-13 23:11] VITALS: BP 129/78; PULSE 109; RESP 18; TEMP 37.3; O2SAT 95; BMI 26.4
--- NOTE | 2020-12-14 00:49 | ECG_ITS ---
Test Reason : ORDER Blood Pressure : / mmHG Vent. Rate : 093 BPM Atrial Rate : 093 BPM P-R Int : 194 ms QRS Dur : 088 ms QT Int : 358 ms P-R-T Axes : 059 090 061 degrees QTc Int : 445 ms Normal sinus rhythm Rightward axis Borderline ECG When compared with ECG of 24-NOV-2019 14:58, No significant change was found Referred By: Sindhu Carroll Electronically Signed By:CASE FERNÁNDEZ MD
--- NOTE | 2020-12-14 00:51 | ED.GENADULT ---
HPI - General Adult General Chief complaint: General Medical Stated complaint: PALPITATIONS S/P COVID VACCINE DOSE #2 Time Seen by Provider: 12/14/20 00:44 Source: patient Mode of arrival: EMS Limitations: no limitations History of Present Illness HPI narrative: Patient comes emergency room complaining of palpitations and chest pressure. Patient states she had her 2nd shot COVID-19 today. Throughout the day, patient has had myalgias, but is feeling overall better now. Patient states that she was concerned about the palpitations and call 911 at this time, she denies chest pain, shortness of breath. Related Data Home Medications Medication Instructions Recorded Confirmed ascorbic acid (vitamin C) 1,000 mg 1 g PO DAILY tab 04/27/20 11/16/20 tablet blood pressure monitor #1 ea 04/27/20 11/16/20 cetirizine 10 mg tablet 10 mg PO DAILY 04/27/20 11/16/20 baclofen 20 mg tablet 20 mg PO BEDTIME 11/06/20 11/16/20 multivitamin 1 tab PO DAILY 11/16/20 11/16/20 Previous Rx's Medication Instructions Recorded simethicone 80 mg chewable tablet 80 mg PO TID-QID PRN 30 Days #120 07/07/20 tab MDD 6 cholecalciferol (vitamin D3) 50 50 mcg PO DAILY #30 tab 08/15/20 mcg (2,000 unit) tablet fluticasone propionate 50 2 spray INTRANASAL DAILY PRN #16 ml 08/24/20 mcg/actuation nasal spray,suspension atorvastatin 10 mg tablet 10 mg PO DAILY #90 tab 09/12/20 alprazolam 0.25 mg tablet 0.25 mg PO DAILY #20 tab 09/15/20 pantoprazole 40 mg tablet,delayed 40 mg PO DAILY #30 tab 10/28/20 release dicyclomine 20 mg tablet 20 mg PO QID PRN #14 tab 11/06/20 Allergies Allergy/AdvReac Type Severity Reaction Status Date / Time latex [Latex] Allergy Mild SWELLING/IT Verified 11/06/20 11:28 ROSSANA Sulfa (Sulfonamide Allergy Mild SWELLING/ITCHING, Verified 11/06/20 11:28 Antibiotics) pruritis sulfamethoxazole Allergy Unknown ITCHY/HIVES Verified 11/06/20 11:28 [From BACTRIM] trimethoprim [From BACTRIM] Allergy Unknown ITCHY/HIVES Verified 11/06/20 11:28 metoclopramide [From REGLAN] AdvReac Unknown AGITATION Verified 11/06/20 11:28 Review of Systems Review of Systems: Constitutional : No Weight loss, No Fever, No Chills, No Night Sweats, No Fatigue, No Malaise resolved ENT/Mouth : No Hearing loss, No Ear Pain, No Nasal Congestion, No Sinus Pain, No Hoarseness, No sore throat, No Rhinorrhea, No Swallowing Difficulty Eyes: No Eye Pain, No Swelling, No Redness, No Foreign Body, No Discharge, No Vision Changes Cardiovascular : Chest pressure resolved, No SOB, No Dyspnea on Exertion, No Orthopnea, No Edema, complaining of Palpitations Respiratory : No Cough, No Sputum, No Wheezing, No Smoke Exposure, No Dyspnea Gastrointestinal : No Nausea, No Vomiting, No Diarrhea, No Constipation, No abdominal Pain, No Hematochezia, No Melena Genitourinary : no irregular bleeding, No Dysuria, No Urinary Frequency, No Hematuria, No Urinary Incontinence, No Urgency, No Flank Pain, No Urinary Flow Changes, No Hesitancy Musculoskeletal : No joint pain, No Myalgias, No Joint Swelling Skin : No Skin Lesions, No rash Neuro : No Weakness, No Numbness, No Paresthesias, No Loss of Consciousness, No Dizziness, No Headache Psych : No Anxiety/Panic, No Depression, No SI/HI/AH/VH, No Social Issues, Heme/Lymph: No Bruising, No Bleeding,No Lymphadenopathy Endocrine : No Polyuria, No Polydipsia, No Temperature Intolerance [facility] Past Medical History Medical History Abdominal bloating with cramps Anxiety Benign hematuria Cervical disc herniation Erosive esophagitis GERD (gastroesophageal reflux disease) Hemorrhoids Hypercholesterolemia Impaired glucose tolerance Irritable bowel syndrome Lateral meniscal tear Migraine Multiple thyroid nodules Restrictive lung disease Scalp cyst Thyroid nodule Vitamin B12 deficiency Vitamin D deficiency Surgical History H/O esophagogastroduodenoscopy History of lumpectomy of left breast Hx of colonoscopy Hx of tubal ligation S/P excision of lipoma Family History Family History (Updated 11/16/20 @ 15:03 by Gigi Barrow MD) Father Skin cancer Mother Skin cancer High blood pressure Heart problem CVA (cerebral vascular accident) Maternal Grandfather Skin cancer Cancer FH: prostate cancer Brother Schizophrenia Social History Social History (Updated 11/06/20 @ 11:31 by MARLINE Au) Household Members: None Alcohol intake: never Smoking Status: Never smoker Advance Directives: No Advance Directives Information Provided: No Patient : No Current occupational status: employed Current occupation: [employer] Physical Exam Vital Signs: Vital Signs: Last Vital Signs Temp 99.2 F 12/13/20 23:11 Pulse 109 H 12/13/20 23:11 Resp 18 12/13/20 23:11 BP 129/78 12/13/20 23:11 Pulse Ox 95 12/13/20 23:11 Body Mass Index 26.4 Appearance: Alert. Oriented X3. No acute distress. Eyes: Pupils equal, round and reactive to light. ENT: Pharynx normal. Neck: Normal inspection. Neck supple. No lymph nodes noted. No crepitus CVS: Normal heart rate and rhythm. Pulses normal. Normal S1 and S2 Respiratory: No respiratory distress. Breath sounds normal. No Wheezing. No rales Abdomen: Soft and nontender. No rigidity. No distention. good BS x4 Skin: Skin warm and dry. Normal skin color. Normal skin turgor. Extremities: No lower extremity edema. No lower extremity edema. No Lacerations. No Rash Neuro: Oriented X 3. No motor deficit. No sensory deficit. Moving all extermities. No slurred speech. Course Course Course Narrative: I discussed the labs and imaging with the patient, no acute findings. Reactive leukocytosis secondary to COVID-19 immunization. At this time patient is asymptomatic. Medical Decision Making Lab Data Result diagrams: 12/14/20 01:40 12/14/20 01:40 Labs: Lab Results 12/14/20 12/14/20 12/14/20 Range/Units 01:40 01:40 01:40 WBC 11.7 H (4.8-10.8) X10*3/uL RBC 4.55 (4.20-5.50) X10*6/uL Hgb 13.2 (12.0-16.0) g/dl Hct 39.6 (37-47) % MCV 87.0 (80-98) fL MCH 29.0 (27.0-33.0) pg MCHC 33.3 (31.0-35.0) g/dl RDW 12.4 (11.0-16.0) % Plt Count 233 (160-400) X10*3/uL MPV 9.6 (9.4-12.3) fL Immature Gran % (Auto) 0.3 (0.0-0.4) % Neut % (Auto) 79.1 H (45-73) % Lymph % (Auto) 13.4 L (20-40) % [place] % (Auto) 6.2 (2-11) % Eos % (Auto) 0.7 (0-4) % Baso % (Auto) 0.3 (0-2) % Lymph # (Auto) 1.6 (1.2-4.9) X10*3/uL [place] # (Auto) 0.7 (0.1-1.2) X10*3/uL Eos # (Auto) 0.1 (0.0-0.4) X10*3/uL Baso # (Auto) 0.0 (0.0-0.2) X10*3/uL Abs Immat Gran (auto) 0.04 H (0.00-0.03) X10*3/uL Absolute Neuts (auto) 9.3 H (2.0-8.3) X10*3/uL Absolute Nucleated RBC 0.000 (0.0-0.012) X10*3/uL Nucleated RBC % (auto) 0.0 (0.0-0.2) /100WBC Sodium 140 (135-145) mmol/L Potassium 4.1 (3.3-5.1) mmol/L Chloride 105 (96-108) mmol/L Carbon Dioxide 27 (22-29) mmol/L Anion Gap 12 (12-20) BUN 17 H (9-16) mg/dL Creatinine 0.74 (0.5-1.4) mg/dL Estim Creat Clear Calc 89.5 Estimated GFR > 60 Random Glucose 111 (60-115) mg/dL Calcium 9.3 (8.4-10.2) mg/dL Troponin I High Sens < 3.5 (<3.5-17.0) ng/L Urine Color Urine Appearance Urine pH (5.0-8.0) Ur Specific [place] (1.005-1.025) Urine Protein (NEG-TRACE) MG/DL Urine Glucose (UA) (NEG) MG/DL Urine Ketones (NEG) MG/DL Urine Blood (NEG) Urine Nitrite (NEG) Ur Leukocyte Esterase (NEG) Urine RBC (0) /HPF Urine WBC (0-4) /HPF Ur Squamous Epith Cells /LPF Urine Bacteria /LPF 12/14/20 Range/Units 02:22 WBC (4.8-10.8) X10*3/uL RBC (4.20-5.50) X10*6/uL Hgb (12.0-16.0) g/dl Hct (37-47) % MCV (80-98) fL MCH (27.0-33.0) pg MCHC (31.0-35.0) g/dl RDW (11.0-16.0) % Plt Count (160-400) X10*3/uL MPV (9.4-12.3) fL Immature Gran % (Auto) (0.0-0.4) % Neut % (Auto) (45-73) % Lymph % (Auto) (20-40) % [place] % (Auto) (2-11) % Eos % (Auto) (0-4) % Baso % (Auto) (0-2) % Lymph # (Auto) (1.2-4.9) X10*3/uL [place] # (Auto) (0.1-1.2) X10*3/uL Eos # (Auto) (0.0-0.4) X10*3/uL Baso # (Auto) (0.0-0.2) X10*3/uL Abs Immat Gran (auto) (0.00-0.03) X10*3/uL Absolute Neuts (auto) (2.0-8.3) X10*3/uL Absolute Nucleated RBC (0.0-0.012) X10*3/uL Nucleated RBC % (auto) (0.0-0.2) /100WBC Sodium (135-145) mmol/L Potassium (3.3-5.1) mmol/L Chloride (96-108) mmol/L Carbon Dioxide (22-29) mmol/L Anion Gap (12-20) BUN (9-16) mg/dL Creatinine (0.5-1.4) mg/dL Estim Creat Clear Calc Estimated GFR Random Glucose (60-115) mg/dL Calcium (8.4-10.2) mg/dL Troponin I High Sens (<3.5-17.0) ng/L Urine Color YELLOW Urine Appearance CLEAR Urine pH 6.0 (5.0-8.0) Ur Specific [place] 1.015 (1.005-1.025) Urine Protein NEG (NEG-TRACE) MG/DL Urine Glucose (UA) NEG (NEG) MG/DL Urine Ketones NEG (NEG) MG/DL Urine Blood 2+ H (NEG) Urine Nitrite NEG (NEG) Ur Leukocyte Esterase NEG (NEG) Urine RBC 0-2 (0) /HPF Urine WBC 0-2 (0-4) /HPF Ur Squamous Epith Cells TRACE /LPF Urine Bacteria TRACE /LPF ECG Data Attestation: I personally reviewed and interpreted this ECG as follows: (Normal sinus rhythm, heart rate 93, no ST segment depression or elevation, no T-wave inversion, QTC 445) Discharge Plan Discharge Clinical Impression: Palpitation Patient Disposition: Home, Self-Care Instructions: Heart Palpitations (ED) Additional Instructions: Please follow-up with your primary care physician tomorrow. If you have any worsening or new symptoms, please return to the emergency room or call 911 Prescriptions: No Action cholecalciferol (vitamin D3) 50 mcg (2,000 unit) tablet 50 mcg PO DAILY Qty: 30 RF: 11 atorvastatin 10 mg tablet 10 mg PO DAILY Qty: 90 RF: 2 pantoprazole 40 mg tablet,delayed release (DR/EC) 40 mg PO DAILY Qty: 30 RF: 1 (DME) blood pressure monitor [Blood Pressure Kit] Kit See Rx Instructions .ROUTE .MEDSUPPLY Qty: 1 RF: 0 cetirizine [Zyrtec] 10 mg tablet 10 mg PO DAILY RF: 0 ascorbic acid (vitamin C) 1,000 mg tablet 1 g PO DAILY RF: 0 fluticasone propionate 50 mcg/actuation spray,suspension 2 spray intranasal DAILY PRN (Reason: allergy symptoms) Qty: 16 RF: 3 alprazolam 0.25 mg tablet 0.25 mg PO DAILY Qty: 20 RF: 0 multivitamin Tablet 1 tab PO DAILY RF: 0 simethicone [Gas Relief (simethicone)] 80 mg tablet,chewable 80 mg PO TID-QID MDD 6 PRN (Reason: abdominal distention) 30 Days Qty: 120 RF: 4 baclofen 20 mg tablet 20 mg PO BEDTIME RF: 0 dicyclomine 20 mg tablet 20 mg PO QID PRN (Reason: abdominal discomfort) Qty: 14 RF: 0
[2020-12-14 01:45] LABS: MANUAL DIFF FLAG NO
[2020-12-14 01:46] LABS: Basophils Percent Auto 0.3 % (0-2); Eosinophils Absolute Auto 0.1 X10*3/uL (0.0-0.4); Eosinophils Percent Auto 0.7 % (0-4); Hematocrit 39.6 % (37-47); Hemoglobin 13.2 g/dl (12.0-16.0); Imm Gran Abs Auto 0.04 X10*3/uL (0.00-0.03); Imm Gran Pct Auto 0.3 % (0.0-0.4); Lymphocytes Absolute Auto 1.6 X10*3/uL (1.2-4.9); Lymphocytes Percent Auto 13.4 % (20-40); Mean Corpuscular HGB Conc 33.3 g/dl (31.0-35.0); Mean Platelet Volume 9.6 fL (9.4-12.3); Monocytes Absolute Auto 0.7 X10*3/uL (0.1-1.2); Monocytes Percent Auto 6.2 % (2-11); Neutrophils Absolute Auto 9.3 X10*3/uL (2.0-8.3); Neutrophils Percent Auto 79.1 % (45-73); Platelet Count 233 X10*3/uL (160-400); Red Blood Count 4.55 X10*6/uL (4.20-5.50); Red Cell Distribution Width 12.4 % (11.0-16.0); White Blood Count 11.7 X10*3/uL (4.8-10.8)
[2020-12-14 02:10] LABS: Troponin-I High Sensitivity < 3.5 ng/L (<3.5-17.0)
[2020-12-14 02:13] LABS: Anion Gap 12 (12-20); Blood Urea Nitrogen 17 mg/dL (9-16); Calcium 9.3 mg/dL (8.4-10.2); Carbon Dioxide 27 mmol/L (22-29); Chloride 105 mmol/L (96-108); Creatinine Clr Calc Pharmacy 89.5; Estimated Glomerular Filt Rate > 60; Glucose Random 111 mg/dL (60-115); Potassium 4.1 mmol/L (3.3-5.1); Sodium 140 mmol/L (135-145)
[2020-12-14] MEDS: 0.9 % Sodium Chloride 1,000 ML 999 ML IVCONT (02:19)
[2020-12-14 02:27] LABS: Glucose Urine UA NEG (NEG); Leukocyte Esterase Urine NEG (NEG); Nitrite Urine NEG (NEG); Specific Gravity - Urine 1.015 (1.005-1.025); Urine Blood 2+ (NEG); Urine Ketones NEG (NEG); Urine Protein NEG (NEG-TRACE)
[2020-12-14 02:30] LABS: Appearance Urine CLEAR; Color Urine YELLOW
[2020-12-14 02:35] LABS: Bacteria Urine TRACE /LPF; RBC Urine 0-2 /HPF (0); Squamous Epithelial Cell Urine TRACE /LPF; WBC Urine 0-2 /HPF (0-4)
== END 2020-12-14 03:53 | disposition home or self-care (01) ==
PROVIDERS: Emergency Provider Emergency Medicine
DX: R00.2 Palpitations (principal)
CPT/HCPCS: 36415; 80048; 81001; 84484; 85025; 93005; 96360; 99283; 99284

== ENCOUNTER 2021-01-24 14:57 | Outpatient (REF) | payer OTHER, SELFPAY ==
[2021-01-24 15:38] LABS: MANUAL DIFF FLAG NO
[2021-01-24 15:48] LABS: Basophils Percent Auto 0.5 % (0-2); Eosinophils Absolute Auto 0.2 X10*3/uL (0.0-0.4); Eosinophils Percent Auto 2.2 % (0-4); Hematocrit 38.6 % (37-47); Hemoglobin 12.5 g/dl (12.0-16.0); Imm Gran Abs Auto 0.02 X10*3/uL (0.00-0.03); Imm Gran Pct Auto 0.3 % (0.0-0.4); Lymphocytes Absolute Auto 3.2 X10*3/uL (1.2-4.9); Lymphocytes Percent Auto 40.7 % (20-40); Mean Corpuscular HGB Conc 32.4 g/dl (31.0-35.0); Mean Corpuscular Hemoglobin 28.4 pg (27.0-33.0); Mean Corpuscular Volume 87.7 fL (80-98); Mean Platelet Volume 10.2 fL (9.4-12.3); Monocytes Absolute Auto 0.5 X10*3/uL (0.1-1.2); Monocytes Percent Auto 6.9 % (2-11); Neutrophils Absolute Auto 3.8 X10*3/uL (2.0-8.3); Neutrophils Percent Auto 49.4 % (45-73); Platelet Count 288 X10*3/uL (160-400); Red Cell Distribution Width 12.7 % (11.0-16.0); White Blood Count 7.8 X10*3/uL (4.8-10.8)
[2021-01-24 15:50] LABS: D Dimer < 200 NG/ML
[2021-01-24 16:20] LABS: Alanine Aminotransferase 25 U/L (0-31); Albumin Level 4.1 g/dL (3.5-5.0); Alkaline Phosphatase 90 U/L (39-117); Anion Gap 12 (12-20); Aspartate Amino Transferase 21 U/L (5-31); B Type Natriuretic Peptide 12 pg/mL (<100); Blood Urea Nitrogen 23 mg/dL (9-16); C Reactive Protein 0.31 mg/dL (< or = 0.50); Calcium 9.5 mg/dL (8.4-10.2); Carbon Dioxide 28 mmol/L (22-29); Chloride 105 mmol/L (96-108); Estimated Glomerular Filt Rate 58; Glucose Random 112 mg/dL (60-115); Potassium 4.7 mmol/L (3.3-5.1); Sodium 140 mmol/L (135-145); Total Protein 6.8 g/dL (6.5-8.0)
[2021-01-24 16:35] LABS: TSH reflex Free T4 0.58 uIU/mL (0.32-4.0)
[2021-01-24 16:44] LABS: Bilirubin Total 0.2 mg/dL (0.0-1.0)
[2021-01-24 16:51] LABS: Erythrocyte Sedimentation Rate 7 MM/HR (0-20)
== END 2021-01-24 14:58 | disposition home or self-care (01) ==
LOC: HO.LAB 14:57
PROVIDERS: PCP Internal Medicine; Visit Provider Internal Medicine
DX: M79.604 Pain in right leg (principal); M79.605 Pain in left leg; R06.00 Dyspnea, unspecified; R53.83 Other fatigue
CPT/HCPCS: 36415; 80053; 83880; 84443; 85025; 85379; 85652; 86140

== ENCOUNTER 2021-02-16 06:40 | Outpatient (REF) | payer OTHER, SELFPAY ==
[2021-02-16 06:59] LABS: MANUAL DIFF FLAG NO
[2021-02-16 07:16] LABS: Basophils Percent Auto 0.3 % (0-2); Eosinophils Absolute Auto 0.2 X10*3/uL (0.0-0.4); Eosinophils Percent Auto 2.6 % (0-4); Hematocrit 42.9 % (37-47); Hemoglobin 13.9 g/dl (12.0-16.0); Imm Gran Abs Auto 0.02 X10*3/uL (0.00-0.03); Imm Gran Pct Auto 0.3 % (0.0-0.4); Lymphocytes Absolute Auto 2.7 X10*3/uL (1.2-4.9); Lymphocytes Percent Auto 38.7 % (20-40); Mean Corpuscular HGB Conc 32.4 g/dl (31.0-35.0); Mean Corpuscular Hemoglobin 28.7 pg (27.0-33.0); Mean Corpuscular Volume 88.5 fL (80-98); Mean Platelet Volume 10.2 fL (9.4-12.3); Monocytes Absolute Auto 0.4 X10*3/uL (0.1-1.2); Monocytes Percent Auto 6.1 % (2-11); Neutrophils Absolute Auto 3.6 X10*3/uL (2.0-8.3); Platelet Count 301 X10*3/uL (160-400); Red Blood Count 4.85 X10*6/uL (4.20-5.50); Red Cell Distribution Width 12.3 % (11.0-16.0); White Blood Count 6.8 X10*3/uL (4.8-10.8)
[2021-02-16 08:00] LABS: Alanine Aminotransferase 18 U/L (0-31); Albumin Level 4.1 g/dL (3.5-5.0); Alkaline Phosphatase 93 U/L (39-117); Anion Gap 12 (12-20); Aspartate Amino Transferase 17 U/L (5-31); Bilirubin Total 0.4 mg/dL (0.0-1.0); Blood Urea Nitrogen 15 mg/dL (9-16); Calcium 9.9 mg/dL (8.4-10.2); Carbon Dioxide 27 mmol/L (22-29); Chloride 107 mmol/L (96-108); Cholesterol 215 mg/dL; Estimated Glomerular Filt Rate > 60; Glucose Random 106 mg/dL (60-115); HDL Cholesterol 50 mg/dL; LDL Cholesterol Calculated 120 mg/dl; Potassium 4.6 mmol/L (3.3-5.1); Sodium 141 mmol/L (135-145); Total Protein 7.1 g/dL (6.5-8.0); Triglycerides 227 mg/dL
[2021-02-16 08:11] LABS: Estimated Average Glucose 120 mg/dL; Hemoglobin A1c % 5.8 %
[2021-02-16 08:24] LABS: Free T4 (Free Thyroxine) 0.92 ng/dL (0.71-1.85)
== END 2021-02-16 06:41 | disposition home or self-care (01) ==
LOC: HO.LAB 06:40
PROVIDERS: PCP Internal Medicine; Visit Provider Internal Medicine
DX: R73.02 Impaired glucose tolerance (oral) (principal); E78.00 Pure hypercholesterolemia, unspecified; R35.0 Frequency of micturition
CPT/HCPCS: 36415; 80053; 80061; 83036; 84439; 84443; 85025

== ENCOUNTER 2021-03-29 08:58 | Outpatient (REF) | payer OTHER, SELFPAY ==
--- NOTE | 2021-03-29 09:01 | EMG_ITS ---
Bilateral tibial and peroneal motor studies were performed. Bilateral sural sensory studies were performed. Superficial peroneal studies were performed. Tibial H reflexes were obtained and some paraspinal muscles were tested. She did not tolerate needle examination and it was terminated. IMPRESSION: This study suggested bilateral lower lumbar probably L4-5 area radiculopathy with acute element. MD REYNALDO Lopez/SARAH / [phone]
== END 2021-03-29 08:59 | disposition home or self-care (01) ==
LOC: HO.NEURO 08:58
PROVIDERS: PCP Internal Medicine; Visit Provider Internal Medicine
DX: M79.604 Pain in right leg (principal); M79.605 Pain in left leg
CPT/HCPCS: 95885; 95911

== ENCOUNTER → 2021-04-13 12:42 | Outpatient (BNVA) | payer OTHER, SELFPAY | PROVIDERS: PCP Internal Medicine; Referring Provider Internal Medicine; Visit Provider Nurse Practitioner | DX: K21.9 Gastro-esophageal reflux disease without esophagitis (principal); K58.1 Irritable bowel syndrome with constipation | CPT/HCPCS: 99212 ==

== ENCOUNTER 2021-04-30 12:49 | Outpatient (REF) | payer OTHER, SELFPAY ==
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
== END 2021-04-30 12:50 | disposition home or self-care (01) ==
LOC: HO.SH 12:49
PROVIDERS: Visit Provider Internal Medicine
DX: H90.42 Sensorineural hearing loss, unilateral, left ear, with unrestricted hearing on the contralateral side (principal)
CPT/HCPCS: 92557; 92567

== ENCOUNTER → 2021-05-08 10:05 | Outpatient (BNVA) | payer OTHER, SELFPAY | PROVIDERS: PCP Internal Medicine | DX: N30.11 Interstitial cystitis (chronic) with hematuria (principal); R31.9 Hematuria, unspecified | CPT/HCPCS: 99202 ==

== ENCOUNTER 2021-05-09 09:51 | Outpatient (REF) | payer OTHER, SELFPAY ==
[2021-05-09 12:48] LABS: Appearance Urine CLEAR; Color Urine YELLOW; Glucose Urine UA NEG (NEG); Leukocyte Esterase Urine NEG (NEG); Nitrite Urine NEG (NEG); UACC Culture Trigger NO; Urine Blood 1+ (NEG); Urine Ketones NEG (NEG); Urine Protein NEG (NEG-TRACE)
[2021-05-09 13:05] LABS: Squamous Epithelial Cell Urine 2+ /LPF; WBC Urine 0-2 /HPF (0-4)
== END 2021-05-09 09:52 | disposition home or self-care (01) ==
LOC: CF 09:51
PROVIDERS: PCP Internal Medicine
DX: N30.11 Interstitial cystitis (chronic) with hematuria (principal)
CPT/HCPCS: 51700; 81001

== ENCOUNTER → 2021-05-10 13:45 | Outpatient (BNVA) | payer OTHER, SELFPAY | PROVIDERS: PCP Internal Medicine | DX: N30.11 Interstitial cystitis (chronic) with hematuria (principal); Z88.2 Allergy status to sulfonamides; Z88.8 Allergy status to other drugs, medicaments and biological substances; Z88.1 Allergy status to other antibiotic agents; Z91.040 Latex allergy status | CPT/HCPCS: 51700 ==

== ENCOUNTER → 2021-05-11 13:46 | Outpatient (BNVA) | payer OTHER, SELFPAY | PROVIDERS: PCP Internal Medicine | DX: N30.11 Interstitial cystitis (chronic) with hematuria (principal) | CPT/HCPCS: 51700 ==

== ENCOUNTER → 2021-05-15 13:45 | Outpatient (BNVA) | payer OTHER, SELFPAY | DX: N30.11 Interstitial cystitis (chronic) with hematuria (principal) | CPT/HCPCS: 51700 ==

== ENCOUNTER → 2021-05-16 13:50 | Outpatient (BNVA) | payer OTHER, SELFPAY | DX: N30.11 Interstitial cystitis (chronic) with hematuria (principal) | CPT/HCPCS: 51700 ==

== ENCOUNTER 2021-05-18 07:15 | Outpatient (REF) | payer OTHER, SELFPAY ==
[2021-05-18 07:33] LABS: MANUAL DIFF FLAG NO
[2021-05-18 08:05] LABS: Appearance Urine CLEAR; Color Urine YELLOW; Glucose Urine UA NEG (NEG); Leukocyte Esterase Urine 1+ (NEG); Nitrite Urine NEG (NEG); PH 5.5 (5.0-8.0); Specific Gravity - Urine >= 1.030 (1.005-1.025); UACC Culture Trigger YES; Urine Blood 2+ (NEG); Urine Ketones NEG (NEG); Urine Protein NEG (NEG-TRACE)
[2021-05-18 08:05] LABS: Basophils Percent Auto 0.3 % (0-2); Eosinophils Absolute Auto 0.2 X10*3/uL (0.0-0.4); Eosinophils Percent Auto 3.2 % (0-4); Hematocrit 41.2 % (37-47); Hemoglobin 13.5 g/dl (12.0-16.0); Imm Gran Abs Auto 0.02 X10*3/uL (0.00-0.03); Imm Gran Pct Auto 0.3 % (0.0-0.4); Lymphocytes Absolute Auto 2.3 X10*3/uL (1.2-4.9); Lymphocytes Percent Auto 37.1 % (20-40); Mean Corpuscular HGB Conc 32.8 g/dl (31.0-35.0); Mean Corpuscular Hemoglobin 28.6 pg (27.0-33.0); Mean Corpuscular Volume 87.3 fL (80-98); Mean Platelet Volume 10.2 fL (9.4-12.3); Monocytes Absolute Auto 0.4 X10*3/uL (0.1-1.2); Monocytes Percent Auto 5.7 % (2-11); Neutrophils Absolute Auto 3.4 X10*3/uL (2.0-8.3); Neutrophils Percent Auto 53.4 % (45-73); Platelet Count 302 X10*3/uL (160-400); Red Blood Count 4.72 X10*6/uL (4.20-5.50); Red Cell Distribution Width 12.6 % (11.0-16.0); White Blood Count 6.3 X10*3/uL (4.8-10.8)
[2021-05-18 08:17] LABS: Bacteria Urine TRACE /LPF; Squamous Epithelial Cell Urine 1+ /LPF
[2021-05-18 08:31] LABS: Alanine Aminotransferase 19 U/L (0-31); Albumin Level 4.1 g/dL (3.5-5.0); Alkaline Phosphatase 78 U/L (39-117); Anion Gap 12 (12-20); Aspartate Amino Transferase 18 U/L (5-31); Bilirubin Total 0.5 mg/dL (0.0-1.0); Blood Urea Nitrogen 14 mg/dL (9-16); Calcium 9.7 mg/dL (8.4-10.2); Carbon Dioxide 25 mmol/L (22-29); Chloride 109 mmol/L (96-108); Cholesterol 175 mg/dL; Estimated Glomerular Filt Rate > 60; Glucose Random 100 mg/dL (60-115); HDL Cholesterol 46 mg/dL; LDL Cholesterol Calculated 105 mg/dl; Potassium 4.3 mmol/L (3.3-5.1); Sodium 142 mmol/L (135-145); Total Protein 6.9 g/dL (6.5-8.0); Triglycerides 121 mg/dL
[2021-05-18 08:47] LABS: Estimated Average Glucose 120 mg/dL; Hemoglobin A1c % 5.8 %
[2021-05-18 09:07] LABS: Folate 14.3 ng/mL (> or = 4.0); Vitamin B12 400 pg/mL (200-900)
[2021-05-18 09:44] LABS: Free T4 (Free Thyroxine) 0.94 ng/dL (0.71-1.85); Thyroid Stimulating Hormone 1.71 uIU/mL (0.32-4.0)
== END 2021-05-18 07:16 | disposition home or self-care (01) ==
LOC: HO.LAB 07:15
PROVIDERS: PCP Internal Medicine; Visit Provider Internal Medicine
DX: R73.02 Impaired glucose tolerance (oral) (principal); E78.00 Pure hypercholesterolemia, unspecified; K58.1 Irritable bowel syndrome with constipation; K21.9 Gastro-esophageal reflux disease without esophagitis; K22.10 Ulcer of esophagus without bleeding; R13.12 Dysphagia, oropharyngeal phase
CPT/HCPCS: 36415; 80053; 80061; 81001; 82607; 82746; 83036; 84439; 84443; 85025; 87086; 99212

== ENCOUNTER 2021-05-21 14:11 | Outpatient (REF) | payer OTHER, SELFPAY ==
--- NOTE | ~2021-05-21 | US_ITS ---
EXAMINATION: US RETROPERITONEAL COMPLETE (RENAL) CLINICAL INFORMATION: Hematuria, unspecified. COMPARISON: CT abdomen and pelvis 10/12/2020. Ultrasound abdomen complete 09/25/2020. Renal ultrasound 05/27/2017. KUB 10/14/2013. TECHNIQUE: Real-time imaging of the kidneys and bladder. FINDINGS: RIGHT KIDNEY: 10.4 x 5.4 x 5.0 cm (SAG x AP x TRV). The kidney is normal in size, contour, and echogenicity. Renal cortical thickness is normal. There is a 4 mm stone in the midpole. No focal parenchymal lesions or hydronephrosis. LEFT KIDNEY: 10.7 x 5.7 x 5.5 cm (SAG x AP x TRV). The kidney is normal in size, contour, and echogenicity. Renal cortical thickness is normal. No calculi or focal parenchymal lesions. No hydronephrosis. BLADDER: Well distended and normal. Bilateral ureteral jets are demonstrated. Prevoid bladder volume is 554 mL. Postvoid bladder volume is 36.3 mL. US/US retroperitoneal comp IMPRESSION: Small right renal stone otherwise unremarkable exam.
== END 2021-05-21 14:12 | disposition home or self-care (01) ==
LOC: HO.US 14:11
PROVIDERS: PCP Internal Medicine; Visit Provider Internal Medicine
DX: R31.9 Hematuria, unspecified (principal)
CPT/HCPCS: 76770

== ENCOUNTER → 2021-05-24 14:29 | Outpatient (BNVA) | payer OTHER, SELFPAY | PROVIDERS: PCP Internal Medicine ==

== ENCOUNTER 2021-05-30 14:31 | Outpatient (REF) | payer OTHER, SELFPAY ==
--- NOTE | ~2021-05-30 | MM_ITS ---
EXAMINATION: MM SCREENING DIGITAL BREAST TOMOSYNTHESIS, BILATERAL CLINICAL INFORMATION: Screening. Asymptomatic. The lifetime risk of breast cancer based on the Tyrer-Cuzick Model is 6%. COMPARISON: Mammography: 05/22/2020, 05/18/2019, 11/12/2018, 05/08/2018, 05/04/2018 TECHNIQUE: Digital breast tomosynthesis is performed in both the craniocaudal and mediolateral oblique views along with computer-aided detection (CAD). Synthesized 2D images are generated from the tomosynthesis. FINDINGS: There are scattered areas of fibroglandular density (ACR BI-RADS breast composition Category b). There are no significant masses, abnormal calcifications, or other abnormalities. Parenchymal pattern is similar to prior studies. No developing density or interval mass or architectural abnormality. MM/MM tomosynthesis screening BI IMPRESSION: No mammographic evidence of malignancy. ASSESSMENT: BI-RADS 1: Negative RECOMMENDATION: Routine annual mammography screening. This patient's information was entered into a reminder system with a target due date for their next mammogram.
== END 2021-05-30 14:32 | disposition home or self-care (01) ==
LOC: HO.MAMMO 14:31
PROVIDERS: PCP Internal Medicine; Visit Provider Internal Medicine
DX: Z12.31 Encounter for screening mammogram for malignant neoplasm of breast (principal)
CPT/HCPCS: 77063; 77067

== ENCOUNTER 2021-05-31 07:41 | Outpatient (REF) | payer OTHER, SELFPAY ==
[2021-05-31 09:16] LABS: Appearance Urine CLEAR; Color Urine YELLOW; Glucose Urine UA NEG (NEG); Leukocyte Esterase Urine NEG (NEG); Nitrite Urine NEG (NEG); Specific Gravity - Urine <= 1.005 (1.005-1.025); UACC Culture Trigger NO; Urine Blood 1+ (NEG); Urine Ketones NEG (NEG); Urine Protein NEG (NEG-TRACE)
[2021-05-31 09:33] LABS: Bacteria Urine TRACE /LPF; RBC Urine 0-2 /HPF (0); Squamous Epithelial Cell Urine 2+ /LPF; WBC Urine 0-2 /HPF (0-4)
== END 2021-05-31 07:42 | disposition home or self-care (01) ==
LOC: HO.LAB 07:41
PROVIDERS: PCP Internal Medicine; Visit Provider Internal Medicine
DX: N39.0 Urinary tract infection, site not specified (principal)
CPT/HCPCS: 36415; 81001

== ENCOUNTER 2021-06-01 15:26 | Outpatient (REF) | payer OTHER, SELFPAY ==
--- NOTE | ~2021-06-01 | US_ITS ---
EXAMINATION: US THYROID CLINICAL INFORMATION: Nontoxic single thyroid nodule. COMPARISON: Ultrasound soft tissue head/neck thyroid dated 04/13/2020 and 05/31/2019. TECHNIQUE: Linear transducer grayscale and color Doppler examination with attention to the region of the thyroid. FINDINGS: SIZE: Measurements of the thyroid lobes and nodules are given in sagittal, anteroposterior and transverse dimensions respectively. Right Thyroid Lobe: 5.1 x 1.9 x 2.2 cm, volume 11.0 mL. Previously 5.1 x 1.6 x 1.8 cm, volume 7.7 mL. Parenchyma: The gland echotexture is homogeneous. Thyroid vascularity is normal. Left Thyroid Lobe: 4.8 x 1.6 x 1.8 cm, volume 6.9 mL. Previously 4.9 x 1.7 x 1.8 cm, volume 7.8 mL. Parenchyma: The gland echotexture is homogeneous. Thyroid vascularity is normal. Isthmus: 0.3 cm in maximum AP dimension. Previously 0.28 cm. There are multiple small bilateral thyroid nodules. The 4 largest nodules are measured. Estimated total number of nodules greater than or equal to 1 cm: 0. Supervisor Press Room nodules are described as follows: 1. Location: Right mid. Size: 0.41 x 0.26 x 0.49 cm, volume 0.03 mL. Previously: 0.4 x 0.3 x 0.45 cm, volume 0.03 mL. Nodule characteristics: Composition: Solid (2). Echogenicity: Hypoechoic (2). Shape: Not taller than wide (0). Margins: Smooth (0). Echogenic Foci: None (0). ACR TI-RADS total points: 4 ACR TI-RADS category: 4 Significant change in size (>/= 20% in 2 dimensions and minimal increase of 2 mm or 50% or greater increase in volume): Change in features: Change in ACR TI-RADS risk category: 2. Location: Right inferior. Size: 0.45 x 0.32 x 0.42 cm, volume 0.03 mL. Previously: 0.47 x 0.33 x 0.38 cm, volume 0.03 mL. Nodule characteristics: Composition: Solid (2). Echogenicity: Hypoechoic (2). Shape: Not taller than wide (0). Margins: Smooth (0). Echogenic Foci: None (0). ACR TI-RADS total points: 4 ACR TI-RADS category: 4 Significant change in size (>/= 20% in 2 dimensions and minimal increase of 2 mm or 50% or greater increase in volume): Change in features: Change in ACR TI-RADS risk category: 3. Location: Left mid. Size: 0.67 x 0.43 x 0.86 cm, volume 0.13 mL. Previously: 0.75 x 0.54 x 0.69 cm, volume 0.15 mL. Nodule characteristics: Composition: Cystic(0). ACR TI-RADS total points: 0 ACR TI-RADS category: 1 Significant change in size (>/= 20% in 2 dimensions and minimal increase of 2 mm or 50% or greater increase in volume): Change in features: Change in ACR TI-RADS risk category: 4. Location: Left inferior. Size: 0.48 x 0.4 x 0.47 cm, volume 0.05 mL. Previously: Not seen on the previous study. Nodule characteristics: Composition: Solid (2). Echogenicity: Hyperechoic (1). Shape: Not taller than wide (0). Margins: Smooth (0). Echogenic Foci: None (0). ACR TI-RADS total points: 3 ACR TI-RADS category: 3 NODES: No lymphadenopathy is seen in the tissue surrounding the thyroid gland. US/US thyroid IMPRESSION: Multiple small bilateral thyroid nodules similar to previous exam. According to the TI RADS criteria, ultrasound follow-up is not indicated. ACR TI-RADS RECOMMENDATION REFERENCE: Ultrasound-guided fine-needle aspiration, followup ultrasound, no further follow up. * TR1 (0 point) and TR 2 (2 points): No FNA or follow up * TR3 (3 points): FNA if more than or equal to 2.5 cm in maximum dimension, followup ultrasound in 1, 3 and 5 years if 1.5 to 2.4 cm in maximum dimension. * TR4 (4-6 points): FNA if more than or equal to 1.5 cm in maximum dimension, followup ultrasound in 1, 2, 3 and 5 years if 1 to 1.4 cm in maximum dimension. * TR5 (more than or equal to 7 points): FNA if more than or equal to 1 cm in maximum dimension, followup ultrasound every year for 5 years if 0.5 to 0.9 cm in maximum dimension. * TR3, TR4 or TR5 nodules that are below the size threshold for follow up receive no follow up.
--- NOTE | ~2021-06-01 | XR_ITS ---
EXAMINATION: XR LUMBOSACRAL SPINE CLINICAL INFORMATION: Radiculopathy COMPARISON: Previous x-ray March 2016 TECHNIQUE: Three views of the lumbosacral spine. FINDINGS: The vertebral bodies and posterior elements are normal. The disc spaces are preserved and the vertebral alignment is normal. There is mild aortic calcification. The paraspinal soft tissues are otherwise normal. XR/XR lumbar spine 2-3V IMPRESSION: Unremarkable examination.
== END 2021-06-01 15:27 | disposition home or self-care (01) ==
LOC: HO.US 15:26
PROVIDERS: PCP Internal Medicine; Visit Provider Internal Medicine
DX: M54.16 Radiculopathy, lumbar region (principal); E04.1 Nontoxic single thyroid nodule
CPT/HCPCS: 72100; 76536

== ENCOUNTER 2021-06-14 17:26 | Outpatient (REF) | payer OTHER, SELFPAY | END 2021-06-14 17:27 | disposition home or self-care (01) | LOC: HO.LNP 17:26 | PROVIDERS: Visit Provider Nurse Practitioner Family | DX: R10.2 Pelvic and perineal pain (principal); N93.9 Abnormal uterine and vaginal bleeding, unspecified | CPT/HCPCS: 87086 ==

== ENCOUNTER 2021-06-25 13:58 | Outpatient (REF) | payer OTHER, SELFPAY ==
--- NOTE | ~2021-06-25 | FL_ITS ---
PROCEDURE: XR BARIUM SWALLOW CLINICAL INFORMATION: Dysphagia. Oropharyngeal phase. COMPARISON: None TECHNIQUE: Routine barium swallow was performed in lateral fluoroscopy with patient sitting and oral administration of various consistencies of liquid and solid food coated with barium by speech therapist. FINDINGS: Following oral administration of thin barium, thick barium and barium-coated chicken and barium-coated cookie as solid food there is normal oral mastication and propagation of liquids and solids from the oral cavity through the pharynx into the esophagus without obstruction, narrowing or stricture. No laryngeal penetration or aspiration seen. FLUOROSCOPY TIME: 1.0 minute. DOSE AREA PRODUCT: 0.572 uGy-m2 (microgray-meter squared). FL/FL barium swallow modified IMPRESSION: Unremarkable modified barium swallow exam. No laryngeal penetration or aspiration. Correlate with speech therapy report.
--- NOTE | 2021-06-25 17:17 | MHC.SL.IMP ---
Date of Plan of Treatment: 06/25/21 Onset of Symptoms/Illness: 06/25/20 Date Treatment Started: 06/25/21 Admitting Diagnosis: Anxiety Benign hematuria Bilateral lower extremity pain Cervical disc herniation Erosive esophagitis Fatigue Frequency of micturition GERD Hard of hearing Hemorrhoids Hypercholesterolemia Impaired glucose tolerance Interstitial cystitis Irritable bowel syndrome Lateral meniscal tear Migraine Multiple thyroid nodules Restrictive lung disease Scalp cyst Toe pain/swelling Vitamin B12 deficiency Vitamin D deficiency Primary Speech & Language Diagnosis: R13.12 Oropharyngeal Phase Dysphagia Reason for Today's Visit: 40052 Modified Barium Swallow Study Pre-evaluation Dietary Consistencies: Regular Pre-evaluation Liquid Consistency: Thin Pre-evaluation Medication Administration: Whole with Liquid Medical History: Modified Barium Swallow Study Fluoroscopic Evaluation of Swallowing Function CPT Code 53543 Evaluation Year: 2020 Reason for Study: Patient reports globus sensation and pain when swallowing. Referring Physician: Jenelle Santoro NP Evaluating Clinician: Kallie Mirza M.A., CCC-TRANSFER IRON OPERATOR Study Number: 1 Patient Name: Christelle Stewart Status: Outpatient, Ambulatory Age: 50 Gender: Female MEDICAL HISTORY: Year of Onset or Diagnosis: 2019 Comorbidities: Anxiety Benign hematuria Bilateral lower extremity pain Cervical disc herniation Erosive esophagitis Fatigue Frequency of micturition GERD Hard of hearing Hemorrhoids Hypercholesterolemia Impaired glucose tolerance Interstitial cystitis Irritable bowel syndrome Lateral meniscal tear Migraine Multiple thyroid nodules Restrictive lung disease Scalp cyst Toe pain/swelling Vitamin B12 deficiency Vitamin D deficiency Current (pre-evaluation) Intake/Diet: Route: PO Diet Grade: Regular Liquid Consistencies: Thin Pre-Study Functional Oral Intake Scale (FOIS): 7- Total oral intake with no restrictions Pain: Chronic/Ongoing reported at time of study, Throat, rated 6 on scale 0-10 SUBJECTIVE: Patient is a 50 year old woman who attended this exam unaccompanied. Patient?s history is significant for GERD, erosive esophagitis, multiple thyroid nodules, and restrictive lung disease. Patient was ordered a modified barium swallow study by Jenelle MALDONADO from Gastroenterology due to complaints of dysphagia. Patient reports onset of dysphagia, ?at least a year ago.? She reports throat pain when swallowing, rated 6 on a scale 0 to 10. She reports that this pain ?comes and goes.? She also reports globus sensation in her pharynx when eating solids, but denies any pain or globus when swallowing liquids. She states that she needs to drink water after eating in order to get it down. Patient reports the sensation that her throat is ?closing in,? especially when she wants to lay down. Patient describes having a procedure in the past which ?opened up her throat.? Question if patient has had balloon dilation in the past, as this seemed to be what patient was describing. Oral Motor Exam Facial Symmetry: Symmetrical Mouth Occlusion: Normal Oral-Facial Teeth Characteristics: Intact/Normal Tongue Size: Normal Tongue Frenum Length: Normal Is patient able to manage secretions?: Yes Is patient able to produce volitional cough?: Yes Food and Liquid Trials: Oral Impairment: Lip Closure: Did not test Oral Impairment: Tongue Control During Bolus Hold: 0=Cohesive bolus between tongue to palatal seal Oral Impairment: Bolus Preparation/Mastication: 0=Timely and efficient chewing and mashing Oral Impairment: Bolus Transport/Lingual Motion: 2=Slowed tongue motion Oral Impairment: Oral Residue: 1=Trace residue lining oral structures Oral Impairment:Initiation of Pharyngeal Swallow: 2=Bolus head at posterior laryngeal surface of epiglottis Pharyngeal Impairment: Soft Palate Elevation: 0=No bolus between soft palate (SP)/pharyngeal wall (PW) Pharyngeal Impairment: Laryngeal Elevation: 1=Partial thyroid cartilage/arytenoids to epiglottic petiole movement Pharyngeal Impairment: Anterior Hyoid Excursion: 1=Partial anterior movement Pharyngeal Impairment: Epiglottic Movement: 0=Complete inversion Pharyngeal Impairment: Laryngeal Vestibular Closure:: 0=Complete: no air/contrast in laryngeal vestibule Pharyngeal Impairment: Pharyngeal Stripping Wave: 0=Present: complete Pharyngeal Impairment: Pharyngeal Contraction: Did not test Pharyngeal Impairment: Pharyngoesophageal Segment Openin=Complete distension and complete duration: no obstruction of flow Pharyngeal Impairment: Tongue Base (TB) Retraction: 2=Narrow column of contrast/air between TB and posterior PW Pharyngeal Impairment: Pharyngeal Residue: 1=Trace residue within or on pharyngeal structures Pharyngeal Impairment: Esophageal Clearance Upright Position: Did not test Impressions and Recommendations Clinical Observations: OBJECTIVE: Time-out: performed at 02:45 Evaluation Start: 02:30; Stop: 02:40 Patient Positioning: Seated 70-90 degrees Viewing Planes: LATERAL ONLY Contrast: MBSImP? Standardized Protocol using commercially prepared, standardized Barium viscosities, including: Varibar? THIN LIQUID (40% w/v, <15 cps) , 1/2 Shortbread Cookie (1 x1 x.25 ) [facility] [id number] Results: Lip closure for intraoral bolus containment could not be assessed due to logistical reasons not related to physiologic impairment. Tongue control during bolus hold maintained a cohesive bolus held between tongue to palate seal. Bolus preparation and mastication resulted in timely and efficient chewing and mashing. Bolus transport/lingual motion was with slowed tongue motion. Oral residue was a trace, lining oral structures. Initiation of the pharyngeal swallow occurred as the bolus head was at the posterior laryngeal surface of the epiglottis. Soft palate elevation resulted in no bolus between the soft palate and the pharyngeal wall. Laryngeal elevation was decreased, with partial superior movement of the thyroid cartilage/partial approximation of the arytenoids to the epiglottic petiole. Anterior hyoid excursion demonstrated partial anterior movement. Epiglottic movement resulted in complete inversion. Laryngeal vestibular closure was complete, as indicated by no air or contrast within the laryngeal vestibule at the height of the swallow. Pharyngeal stripping wave was present and complete. Pharyngeal contraction could not be determined due to logistical reasons not related to physiologic impairment. Pharyngoesophageal segment opening was completely distended for complete duration with no obstruction of bolus flow. Tongue base retraction allowed a narrow column of contrast or air between the retracted tongue base and the posterior pharyngeal wall. Pharyngeal residue was a trace within or on pharyngeal structures. Esophageal clearance in the upright position could not be assessed due to logistical reasons not related to physiologic impairment. Oral Impairment Score: 4 (absence of score, component 1) Pharyngeal Impairment Score: 4 (absence of score, component 13) Esophageal Impairment Score: --- (absence of score, component 17) Laryngeal Penetration and Aspiration: Neither penetration nor aspiration was observed in today's study with Cookie, Thin. ASSESSMENT: Clinician Assessment: This exam was completed by a multidisciplinary team, which included a speech language pathologist, radiologist, and offshore wind turbine technician. Patient was seated in a chair at optimal 90 degree upright position for lateral view only. Patient trialed the following liquid and solid consistencies: -5 mL thin liquid barium -individual cup sip with bolus hold thin liquid barium -sequential cup sip thin liquid barium -ground solid (mixture chicken salad with barium paste) -regular solid (Karin Doone cookie coated with barium paste) No evidence of aspiration or penetration with solid and liquid consistencies during this exam. No premature posterior escape of bolus. Timely and efficient mastication. Mildly slowed posterior tongue movement to propel bolus. Pharyngeal swallow trigger initiated when bolus head reached posterior laryngeal surface of epiglottis. Trace oral residue on palate and tongue cleared with subsequent dry swallow. Partial laryngeal elevation with partial anterior hyoid movement, but complete epiglottic inversion and complete laryngeal vestibular closure. Complete clearing of valleculae and pyriform sinuses. Trace residue on posterior pharyngeal wall. Dry swallow was effective in reducing pharyngeal residue. Liquid Intake Recommendation: Thin Liquid Intake Strategies: Unrestricted Dietary Recommendations: Regular Medication Administration: Whole with Liquid Compensatory Strategies Recommended: Sitting Upright (90 deg) Double Swallow Small Bites and Sips Alternate Liquids/Solids Rate of Ingestion Change Supervision during eating and or drinking: None Needed Recommendation for Speech Therapy: NA:Typical Evaluation Text Comment: PLAN: Intake Recommendations: Route: PO Diet Grade: Regular Liquid Consistencies: Thin Post-Study Functional Oral Intake Scale (FOIS): 7- Total oral intake with no restrictions No aspiration or penetration during this exam. Complete oral and pharyngeal clearance with subsequent dry swallow. Complete distention and complete duration/ no obstruction of flow through pharyngoesophageal segment opening. Further ST intervention is not warranted. Patient is recommended to resume unmodified diet regular solids and thin liquids. Due to reports of odynophagia/throat pain, globus sensation, and the sensation of throat closing in, patient is recommended consults with G.I. specialist and otolaryngology. Suggested Referrals: The patient might benefit from a referral to: Gastroenterology Otolaryngology Therapy Recommendations: Therapy will be discontinued Prognosis for Improvement: The prognosis for the patient to meet nutritional needs by mouth is excellent based on degree of impairment. Clinician - Supplemental, Miscellaneous Communication: It is important to note MBSS objective studies are snapshots in time and Patient function might vary with factors such as time of day or concomitant medical conditions. For this reason, the final treatment plan for this patient should rest with their medical care team. Additional recommendations should be considered with the totality of the Patient in mind. Thank for the opportunity to participate in the care of this patient. If you have any questions about the content of this report, please contact the [facility]. Education: Education regarding findings from today's study and plans for therapy were provided to Patient only through Verbal Instruction. Understanding was expressed by the Patient only. Coremaker Experimental Clinician/Clinical Fellow: No Supervisory Statement: N/A Speech Language Pathologist: Kallie Mirza M.A., [facility]-TRANSFER IRON OPERATOR
== END 2021-06-25 13:59 | disposition home or self-care (01) ==
LOC: HO.XRAY 13:58
PROVIDERS: Visit Provider Nurse Practitioner
DX: R13.12 Dysphagia, oropharyngeal phase (principal)
CPT/HCPCS: 74230; 92611

== ENCOUNTER → 2021-06-26 14:25 | Outpatient (BNVA) | payer OTHER, SELFPAY | PROVIDERS: PCP Nurse Practitioner Family ==

== ENCOUNTER → 2021-07-16 13:48 | Outpatient (BNVA) | payer OTHER, SELFPAY | PROVIDERS: PCP Internal Medicine; Referring Provider Internal Medicine; Visit Provider Nurse Practitioner | DX: K22.10 Ulcer of esophagus without bleeding (principal); R13.12 Dysphagia, oropharyngeal phase; R10.10 Upper abdominal pain, unspecified; K21.9 Gastro-esophageal reflux disease without esophagitis; K58.1 Irritable bowel syndrome with constipation | CPT/HCPCS: 99212 ==

== ENCOUNTER 2021-07-19 07:26 | Outpatient (REF) | payer OTHER, SELFPAY ==
[2021-07-19 08:27] LABS: Amylase 61 U/L (28-100); Lipase 86 U/L (8-78)
== END 2021-07-19 07:27 | disposition home or self-care (01) ==
LOC: HO.LAB 07:26
PROVIDERS: PCP Internal Medicine; Visit Provider Nurse Practitioner
DX: R10.10 Upper abdominal pain, unspecified (principal); K58.1 Irritable bowel syndrome with constipation
CPT/HCPCS: 36415; 82150; 83690; 86003

== ENCOUNTER 2021-08-23 08:18 | Outpatient (REF) | payer OTHER, SELFPAY ==
--- NOTE | ~2021-08-23 | US_ITS ---
EXAMINATION: US ABDOMEN COMPLETE CLINICAL INFORMATION: Irritable bowel syndrome with constipation and upper abdominal pain. COMPARISON: Ultrasound kidneys and bladder 05/21/2021. CT abdomen and pelvis 10/12/2020. Ultrasound abdomen complete 09/25/2020. TECHNIQUE: Real-time imaging of the abdominal viscera. FINDINGS: PANCREAS: Not well visualized due to bowel gas ABDOMINAL AORTA: The proximal, mid, and distal segments are normal in caliber. INFERIOR VENA CAVA: Visualized portions are normal. LIVER: The liver is normal in size. The liver contour is normal. Liver echotexture is normal. No focal hepatic lesion. There is no intrahepatic biliary duct dilatation seen. GALLBLADDER: Normal. The gallbladder is physiologically distended without evidence of stones, sludge, polyps, wall thickening or pericholecystic fluid. COMMON BILE DUCT: Normal in caliber measuring 0.4 cm in diameter. RIGHT KIDNEY: Normal. No hydronephrosis. No renal calculi or focal parenchymal lesions. The kidney measures 11.6 cm in maximum dimension. LEFT KIDNEY: Normal. No hydronephrosis. No renal calculi or focal parenchymal lesions. The kidney measures 10.4 cm in maximum dimension. SPLEEN: Normal. The spleen measures 9.8 cm in maximum dimension. FREE FLUID: None. US/US abdomen complete IMPRESSION: Limited visualization of the pancreas otherwise unremarkable exam.
== END 2021-08-23 08:19 | disposition home or self-care (01) ==
LOC: HO.US 08:18
PROVIDERS: Visit Provider Nurse Practitioner
DX: R10.10 Upper abdominal pain, unspecified (principal); K58.1 Irritable bowel syndrome with constipation
CPT/HCPCS: 76700

== ENCOUNTER 2021-08-28 06:58 | Outpatient (REF) | payer OTHER, SELFPAY ==
[2021-08-28 07:29] LABS: Estimated Average Glucose 123 mg/dL; Hemoglobin A1c % 5.9 %
[2021-08-28 07:36] LABS: Alanine Aminotransferase 19 U/L (0-31); Albumin Level 4.3 g/dL (3.5-5.0); Alkaline Phosphatase 75 U/L (39-117); Anion Gap 12 (12-20); Aspartate Amino Transferase 18 U/L (5-31); Bilirubin Direct < 0.2 mg/dL (0.0-0.5); Bilirubin Total 0.4 mg/dL (0.0-1.0); Blood Urea Nitrogen 15 mg/dL (9-16); Calcium 10.1 mg/dL (8.4-10.2); Carbon Dioxide 29 mmol/L (22-29); Chloride 106 mmol/L (96-108); Estimated Glomerular Filt Rate > 60; Glucose Random 113 mg/dL (60-115); Potassium 4.4 mmol/L (3.3-5.1); Sodium 143 mmol/L (135-145); Total Protein 7.3 g/dL (6.5-8.0)
[2021-08-28 08:31] LABS: Appearance Urine HAZY; Color Urine STRAW; Glucose Urine UA NEG (NEG); Leukocyte Esterase Urine 2+ (NEG); Nitrite Urine NEG (NEG); PH 6.5 (5.0-8.0); UACC Culture Trigger YES; Urine Blood 3+ (NEG); Urine Ketones NEG (NEG); Urine Protein NEG (NEG-TRACE)
[2021-08-28 08:51] LABS: Bacteria Urine TRACE /LPF; Mucus Urine TRACE /LPF; Renal Epithelial Cells Urine 1+ /LPF; Squamous Epithelial Cell Urine 2+ /LPF
== END 2021-08-28 06:59 | disposition home or self-care (01) ==
LOC: HO.LAB 06:58
PROVIDERS: PCP Internal Medicine; Visit Provider Internal Medicine
DX: R73.02 Impaired glucose tolerance (oral) (principal); E78.00 Pure hypercholesterolemia, unspecified; R79.89 Other specified abnormal findings of blood chemistry; R35.0 Frequency of micturition; N39.0 Urinary tract infection, site not specified
CPT/HCPCS: 36415; 80053; 81001; 82248; 83036; 87086

== ENCOUNTER → 2021-09-03 12:44 | Outpatient (BNVA) | payer OTHER, SELFPAY | PROVIDERS: PCP Internal Medicine; Referring Provider Internal Medicine; Visit Provider Nurse Practitioner | DX: K58.1 Irritable bowel syndrome with constipation (principal); K22.10 Ulcer of esophagus without bleeding; K21.9 Gastro-esophageal reflux disease without esophagitis; R14.0 Abdominal distension (gaseous) | CPT/HCPCS: 99212 ==

== ENCOUNTER 2021-10-04 12:32 | Outpatient (REF) | payer OTHER, SELFPAY ==
--- NOTE | ~2021-10-04 | XR_ITS ---
EXAMINATION: X-RAY BILATERAL KNEES CLINICAL INFORMATION: Pain COMPARISON: X-ray 11/05/2018 TECHNIQUE: Left knee 3 views. Right knee 2 views. FINDINGS: RIGHT KNEE: Bones and soft tissues are normal. No fracture. Small suprapatellar fluid. There is a minimal peripheral osteophyte seen of the upper articular surface of the patella. Alignment is anatomic. Joint spaces are well maintained. No abnormal soft tissue calcification. LEFT KNEE: Bones and soft tissues are normal. No fracture or joint effusion. Alignment is anatomic. Joint spaces are well maintained. No abnormal soft tissue calcification. XR/XR knee LT 2V IMPRESSION: No acute osseous abnormality
--- NOTE | ~2021-10-04 | XR_ITS ---
EXAMINATION: X-RAY BILATERAL KNEES CLINICAL INFORMATION: Pain COMPARISON: X-ray 11/05/2018 TECHNIQUE: Left knee 3 views. Right knee 2 views. FINDINGS: RIGHT KNEE: Bones and soft tissues are normal. No fracture. Small suprapatellar fluid. There is a minimal peripheral osteophyte seen of the upper articular surface of the patella. Alignment is anatomic. Joint spaces are well maintained. No abnormal soft tissue calcification. LEFT KNEE: Bones and soft tissues are normal. No fracture or joint effusion. Alignment is anatomic. Joint spaces are well maintained. No abnormal soft tissue calcification. XR/XR knee RT 2V IMPRESSION: No acute osseous abnormality
== END 2021-10-04 12:33 | disposition home or self-care (01) ==
LOC: HO.XRAY 12:32
PROVIDERS: PCP Internal Medicine; Visit Provider Internal Medicine
DX: M25.561 Pain in right knee (principal); M25.562 Pain in left knee
CPT/HCPCS: 73560

== ENCOUNTER → 2021-10-12 13:18 | Outpatient (BNVA) | payer OTHER, SELFPAY | PROVIDERS: PCP Internal Medicine; Referring Provider Internal Medicine; Visit Provider Nurse Practitioner | DX: K58.1 Irritable bowel syndrome with constipation (principal); R10.9 Unspecified abdominal pain; R14.0 Abdominal distension (gaseous); K21.9 Gastro-esophageal reflux disease without esophagitis; K22.10 Ulcer of esophagus without bleeding; R13.12 Dysphagia, oropharyngeal phase; E53.8 Deficiency of other specified B group vitamins; E55.9 Vitamin D deficiency, unspecified; Z88.2 Allergy status to sulfonamides; Z88.8 Allergy status to other drugs, medicaments and biological substances; Z91.040 Latex allergy status | CPT/HCPCS: 99212 ==

== ENCOUNTER 2021-11-19 12:53 | Outpatient (REF) | payer OTHER, SELFPAY ==
[2021-11-19 14:28] LABS: Amylase 55 U/L (28-100); Lipase 73 U/L (8-78)
== END 2021-11-19 12:54 | disposition home or self-care (01) ==
LOC: HO.LAB 12:53
PROVIDERS: PCP Internal Medicine; Referring Provider Internal Medicine; Visit Provider Nurse Practitioner
DX: R74.8 Abnormal levels of other serum enzymes (principal); K21.9 Gastro-esophageal reflux disease without esophagitis; E53.8 Deficiency of other specified B group vitamins; E55.9 Vitamin D deficiency, unspecified; F41.9 Anxiety disorder, unspecified; Z87.891 Personal history of nicotine dependence; Z88.2 Allergy status to sulfonamides; Z88.8 Allergy status to other drugs, medicaments and biological substances; Z91.040 Latex allergy status
CPT/HCPCS: 36415; 82150; 83690; 99212

== ENCOUNTER 2021-11-26 03:34 | Emergency (ER) | payer OTHER, SELFPAY ==
--- NOTE | ~2021-11-26 | XR_ITS ---
EXAMINATION: XR CHEST CLINICAL INFORMATION: Chest pain COMPARISON: Chest radiograph 07/05/2020 TECHNIQUE: Frontal view of the chest was obtained. FINDINGS: Normal appearance of the cardiomediastinal structures. No effusions or pneumothoraces. No focal pulmonary consolidation. Normal pattern of pulmonary vasculature. XR/XR chest 1V IMPRESSION: No acute cardiopulmonary abnormalities.
--- NOTE | 2021-11-26 03:38 | ECG_ITS ---
Test Reason : cp Blood Pressure : / mmHG Vent. Rate : 132 BPM Atrial Rate : 132 BPM P-R Int : 154 ms QRS Dur : 092 ms QT Int : 290 ms P-R-T Axes : 062 134 046 degrees QTc Int : 429 ms Sinus tachycardia Possible Left atrial enlargement Right axis deviation Abnormal ECG When compared with ECG of 14-DEC-2020 01:24, No significant change was found Referred By: Generic ED Physician Electronically Signed By:CASE FERNÁNDEZ MD
[2021-11-26 03:53] VITALS: BP 131/61; PULSE 134; RESP 20; TEMP 37.7; O2SAT 95; BMI 25.6
[2021-11-26 04:16] LABS: Basophils Percent Auto 0.4 % (0-2); Eosinophils Absolute Auto 0.1 X10*3/uL (0.0-0.4); Eosinophils Percent Auto 1.1 % (0-4); Hematocrit 39.8 % (37.0-47.0); Hemoglobin 13.3 g/dl (12.0-16.0); Imm Gran Abs Auto 0.03 X10*3/uL (0.00-0.03); Imm Gran Pct Auto 0.4 % (0.0-0.4); Lymphocytes Absolute Auto 0.9 X10*3/uL (1.2-4.9); Lymphocytes Percent Auto 11.5 % (20-40); MANUAL DIFF FLAG NO; Mean Corpuscular HGB Conc 33.4 g/dl (31.0-35.0); Mean Corpuscular Hemoglobin 28.7 pg (27.0-33.0); Monocytes Absolute Auto 0.7 X10*3/uL (0.1-1.2); Monocytes Percent Auto 9.6 % (2-11); Neutrophils Absolute Auto 5.7 x10*3/uL (2.0-8.3); Platelet Count 273 X10*3/uL (160-400); Red Blood Count 4.63 X10*6/uL (4.20-5.50); Red Cell Distribution Width 12.1 % (11.0-16.0); White Blood Count 7.4 X10*3/uL (4.8-10.8)
[2021-11-26 04:23] LABS: Strep A Nucleic Acid Negative (Negative)
[2021-11-26 04:27] LABS: Lactic Acid 1.7 mmol/L (0.5-2.0)
[2021-11-26 04:29] LABS: Anion Gap 13 (12-20); Blood Urea Nitrogen 17 mg/dL (9-16); Calcium 9.6 mg/dL (8.4-10.2); Carbon Dioxide 23 mmol/L (22-29); Chloride 103 mmol/L (96-108); Creatinine Clr Calc Pharmacy 78.6; Estimated Glomerular Filt Rate > 60; Glucose Random 129 mg/dL (60-115); Potassium 3.9 mmol/L (3.3-5.1); Sodium 135 mmol/L (135-145)
[2021-11-26 04:33] LABS: COVID-19 Test Positive (Negative); IDNOW Serial# 08D9AD1C; Influenza A Negative (Negative); Influenza B2 Negative (Negative)
[2021-11-26 04:35] LABS: Troponin-I High Sensitivity < 3.5 ng/L (<3.5-17.0)
--- NOTE | 2021-11-26 04:42 | ED.GENADULT ---
HPI - General Adult General Chief complaint: General Medical Stated complaint: Fever/Abd pain/Chest pain Time Seen by Provider: 11/26/21 04:42 Source: patient Mode of arrival: ambulatory Limitations: no limitations History of Present Illness HPI narrative: Patient started getting a sore throat on Friday. Patient decided to come to the hospital because of fever, headache and abdominal pain. Patient has had 2 vaccines but has not had COVID. Onset (ago): day(s) Severity: mild Associated symptoms: cough, fever/chills, loss of appetite and nausea/vomiting Related Data Home Medications Medication Instructions Recorded Confirmed baclofen 20 mg tablet 20 mg PO BEDTIME 11/06/20 12/19/21 multivitamin 1 tab PO DAILY 11/16/20 12/19/21 amitriptyline 10 mg tablet 10 mg PO BEDTIME 04/13/21 12/19/21 Previous Rx's Medication Instructions Recorded phenazopyridine 100 mg tablet 100 mg PO TID PRN #6 tab 06/14/21 (Pyridium) terconazole 0.4 % vaginal cream 1 appful VAGINAL BEDTIME 7 Days 06/14/21 #45 g atorvastatin 10 mg tablet 10 mg PO DAILY #90 tab 07/03/21 cholecalciferol (vitamin D3) 50 50 mcg PO DAILY #90 tab 08/21/21 mcg (2,000 unit) tablet estradiol (Estrace) See Rx Instructions .ROUTE DAILY 08/21/21 30 Days #42.5 g fluticasone propionate 50 2 spray INTRANASAL DAILY PRN #16 ml 08/29/21 mcg/actuation nasal spray,suspension simethicone 80 mg chewable tablet 80 mg PO TID-QID PRN 30 Days #120 08/29/21 (Gas Relief (simethicone)) tab MDD 6 fexofenadine 180 mg tablet 180 mg PO DAILY 90 Days #90 tab 08/31/21 pantoprazole 40 mg tablet,delayed 40 mg PO DAILY #30 tab 09/03/21 release psyllium husk 0.52 gram capsule 1.04 g PO BID 30 Days #120 cap 09/03/21 (Daily Fiber) diclofenac sodium 1 % topical gel 4 g TOPICAL QID #100 g 10/03/21 (Voltaren Arthritis Pain) cetirizine 10 mg tablet 10 mg PO DAILY #90 tab 10/11/21 alprazolam 0.25 mg tablet 0.25 mg PO DAILY #7 tab 11/13/21 Lactobacillus acidophilus 100 mg PO DAILY #30 cap 11/19/21 (Acidophilus) ondansetron 4 mg disintegrating 4 mg PO Q8H 4 Days #12 tab 11/26/21 tablet hydrocodone 5 mg-acetaminophen 325 1 tab PO Q6H PRN #12 tab 11/28/21 mg tablet sertraline 25 mg tablet 25 mg PO DAILY 30 Days #90 tab 11/29/21 amoxicillin 500 mg-potassium 1 tab PO BID 10 Days #20 tab 11/30/21 clavulanate 125 mg tablet (Augmentin) buspirone 15 mg tablet 15 mg PO BID #180 tab 12/18/21 albuterol sulfate 90 mcg/actuation 1 inh INHALATION QID PRN 30 Days 12/19/21 aerosol inhaler #8.5 g benzonatate 200 mg capsule 200 mg PO TID PRN 7 Days #21 cap 12/19/21 Allergies Allergy/AdvReac Type Severity Reaction Status Date / Time latex [Latex] Allergy Mild SWELLING/IT Verified 12/25/21 13:16 ROSSANA Sulfa (Sulfonamide Allergy Mild SWELLING/ITCHING, Verified 12/25/21 13:16 Antibiotics) pruritis sulfamethoxazole Allergy Unknown ITCHY/HIVES Verified 12/25/21 13:16 [From BACTRIM] trimethoprim [From BACTRIM] Allergy Unknown ITCHY/HIVES Verified 12/25/21 13:16 metoclopramide [From REGLAN] AdvReac Unknown AGITATION Verified 12/25/21 13:16 Review of Systems Constitutional: Constitutional: Reports no additional constitutional complaints Eyes: Eyes: Reports no additional eye complaints ENT: Denies dizziness Cardiovascular: Cardiovascular: Reports no additional cardiovascular complaints Respiratory: Respiratory: Reports as per HPI Gastrointestinal: Gastrointestinal: Reports no additional gastrointestinal complaints Genitourinary: Genitourinary: Reports no additional female genitourinary complaints Musculoskeletal: Musculoskeletal: Reports no additional musculoskeletal complaints Integumentary/Breasts: Skin/Breast: Denies rash Neurologic: Reports system reviewed and no additional complaints, except as documented, Denies dizziness and Denies Sensory deficit (Neuro) Psychiatric: Psychiatric: Denies anxiety [facility] Past Medical History Medical History (Updated 12/25/21 @ 15:09 by VINCE Buck) Benign hematuria Bilateral lower extremity pain Cervical disc herniation Erosive esophagitis Fatigue Frequency of micturition GERD (gastroesophageal reflux disease) Hearing deficit Hemorrhoids Hypercholesterolemia Impaired glucose tolerance Interstitial cystitis Interstitial cystitis Interstitial cystitis (chronic) with hematuria Irritable bowel syndrome Irritable bowel syndrome Lateral meniscal tear Migraine Multiple thyroid nodules Restrictive lung disease Scalp cyst Thyroid nodule Toe pain, right Toe swelling Vitamin B12 deficiency Vitamin D deficiency Surgical History H/O esophagogastroduodenoscopy History of lumpectomy of left breast Hx of colonoscopy Hx of tubal ligation S/P excision of lipoma Family History Family History Father Skin cancer Mother Skin cancer High blood pressure Heart problem CVA (cerebral vascular accident) Maternal Grandfather Skin cancer Cancer FH: prostate cancer Brother Schizophrenia Other Mental health problem Social History Social History Household Members: None Housing: Apartment Alcohol intake: never Patient Tobacco Use Status: Former Tobacco user Tobacco use type: Cigarette e-Cigarette/Vaping Use: Never Used Second Hand Smoke Exposure: No service: No Current occupational status: employed 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 Cognitive needs: No Hearing needs: No Vision needs: No Physical Exam ED Vital Signs: Vital Signs - 24 hr 11/26/21 03:53 Temperature 99.9 F Pulse Rate 134 H Respiratory Rate 20 Blood Pressure 131/61 Pulse Oximetry 95 BMI result Body Mass Index 25.6 Const General: healthy appearing Nutritional Appearance: average body habitus Orientation/consciousness: oriented to person and patient oriented x3 Limitations: no limitations HENMT Head: Yes normal to inspection Ears: external ears normal General nose exam: Normal external nose present Mouth: Normal oral and palatal mucosa present and oropharynx normal Throat: Yes posterior oropharynx normal Eyes General: appearance normal, both eyes and all related structures Neck Neck: Yes normal visual inspection Chest Chest palpation & inspection: normal inspection of the chest Resp Auscultation: clear to auscultation bilaterally Cardio Other: tachycardia Jugular venous distension: no JVD GI Inspection: Yes normal to inspection Palpation (GI): Soft to palpation, nontender and No hepatosplenomegaly present Auscultation: normal bowel sounds General: Yes no CVA tenderness Back/Spine/Pelvis Back: no CVA tenderness Skin General skin exam: no rashes or lesions noted Neuro General: oriented to person and patient oriented x3 Cranial nerves: Yes CN's II-XII intact bilaterally Motor exam (neuro): 5/5 motor strength present throughout Sensory Exam: No Sensory deficit (Neuro) Extrem General: Yes normal to inspection Psych Appearance: grossly normal Course Reevaluation(s) Reevaluation #1: Patient is well appearing, not hypoxic, COVID positive. Will dc home on tylenol/motrin and zofran Time: 04:53 Medical Decision Making Lab Data Result diagrams: 11/26/21 04:06 11/26/21 04:06 Labs: Lab Results 11/26/21 11/26/21 11/26/21 Range/Units 04:06 04:06 04:06 WBC 7.4 (4.8-10.8) X10*3/uL RBC 4.63 (4.20-5.50) X10*6/uL Hgb 13.3 (12.0-16.0) g/dl Hct 39.8 (37.0-47.0) % MCV 86.0 (80.0-98.0) fL MCH 28.7 (27.0-33.0) pg MCHC 33.4 (31.0-35.0) g/dl RDW 12.1 (11.0-16.0) % Plt Count 273 (160-400) X10*3/uL MPV 10.0 (9.4-12.3) fL Immature Gran % (Auto) 0.4 (0.0-0.4) % Neut % (Auto) 77.0 H (45-73) % Lymph % (Auto) 11.5 L (20-40) % [place] % (Auto) 9.6 (2-11) % Eos % (Auto) 1.1 (0-4) % Baso % (Auto) 0.4 (0-2) % Lymph # (Auto) 0.9 L (1.2-4.9) X10*3/uL [place] # (Auto) 0.7 (0.1-1.2) X10*3/uL Eos # (Auto) 0.1 (0.0-0.4) X10*3/uL Baso # (Auto) 0.0 (0.0-0.2) X10*3/uL Abs Immat Gran (auto) 0.03 (0.00-0.03) X10*3/uL Absolute Neuts (auto) 5.7 (2.0-8.3) x10*3/uL Absolute Nucleated RBC 0.000 (0.0-0.012) X10*3/uL Nucleated RBC % (auto) 0.0 (0.0-0.2) /100WBC Sodium 135 (135-145) mmol/L Potassium 3.9 (3.3-5.1) mmol/L Chloride 103 (96-108) mmol/L Carbon Dioxide 23 (22-29) mmol/L Anion Gap 13 (12-20) BUN 17 H (9-16) mg/dL Creatinine 0.83 (0.5-1.4) mg/dL Estim Creat Clear Calc 78.6 Estimated GFR > 60 Random Glucose 129 H (60-115) mg/dL Lactic Acid (0.5-2.0) mmol/L Calcium 9.6 (8.4-10.2) mg/dL Troponin I High Sens < 3.5 (<3.5-17.0) ng/L COVID-19 ([facility]) (Negative) COVID-19 Clin Com Influenza Type A ([facility]) (Negative) Influenza Type B ([facility]) (Negative) Influenza A & B Note S. pyogenes GrpA [facility] (Negative) 11/26/21 11/26/21 11/26/21 Range/Units 04:06 04:07 04:07 WBC (4.8-10.8) X10*3/uL RBC (4.20-5.50) X10*6/uL Hgb (12.0-16.0) g/dl Hct (37.0-47.0) % MCV (80.0-98.0) fL MCH (27.0-33.0) pg MCHC (31.0-35.0) g/dl RDW (11.0-16.0) % Plt Count (160-400) X10*3/uL MPV (9.4-12.3) fL Immature Gran % (Auto) (0.0-0.4) % Neut % (Auto) (45-73) % Lymph % (Auto) (20-40) % [place] % (Auto) (2-11) % Eos % (Auto) (0-4) % Baso % (Auto) (0-2) % Lymph # (Auto) (1.2-4.9) X10*3/uL [place] # (Auto) (0.1-1.2) X10*3/uL Eos # (Auto) (0.0-0.4) X10*3/uL Baso # (Auto) (0.0-0.2) X10*3/uL Abs Immat Gran (auto) (0.00-0.03) X10*3/uL Absolute Neuts (auto) (2.0-8.3) x10*3/uL Absolute Nucleated RBC (0.0-0.012) X10*3/uL Nucleated RBC % (auto) (0.0-0.2) /100WBC Sodium (135-145) mmol/L Potassium (3.3-5.1) mmol/L Chloride (96-108) mmol/L Carbon Dioxide (22-29) mmol/L Anion Gap (12-20) BUN (9-16) mg/dL Creatinine (0.5-1.4) mg/dL Estim Creat Clear Calc Estimated GFR Random Glucose (60-115) mg/dL Lactic Acid 1.7 (0.5-2.0) mmol/L Calcium (8.4-10.2) mg/dL Troponin I High Sens (<3.5-17.0) ng/L COVID-19 ([facility]) Positive A (Negative) COVID-19 Clin Com See Note Influenza Type A ([facility]) Negative (Negative) Influenza Type B ([facility]) Negative (Negative) Influenza A & B Note See Note S. pyogenes GrpA [facility] (Negative) 11/26/21 Range/Units 04:07 WBC (4.8-10.8) X10*3/uL RBC (4.20-5.50) X10*6/uL Hgb (12.0-16.0) g/dl Hct (37.0-47.0) % MCV (80.0-98.0) fL MCH (27.0-33.0) pg MCHC (31.0-35.0) g/dl RDW (11.0-16.0) % Plt Count (160-400) X10*3/uL MPV (9.4-12.3) fL Immature Gran % (Auto) (0.0-0.4) % Neut % (Auto) (45-73) % Lymph % (Auto) (20-40) % [place] % (Auto) (2-11) % Eos % (Auto) (0-4) % Baso % (Auto) (0-2) % Lymph # (Auto) (1.2-4.9) X10*3/uL [place] # (Auto) (0.1-1.2) X10*3/uL Eos # (Auto) (0.0-0.4) X10*3/uL Baso # (Auto) (0.0-0.2) X10*3/uL Abs Immat Gran (auto) (0.00-0.03) X10*3/uL Absolute Neuts (auto) (2.0-8.3) x10*3/uL Absolute Nucleated RBC (0.0-0.012) X10*3/uL Nucleated RBC % (auto) (0.0-0.2) /100WBC Sodium (135-145) mmol/L Potassium (3.3-5.1) mmol/L Chloride (96-108) mmol/L Carbon Dioxide (22-29) mmol/L Anion Gap (12-20) BUN (9-16) mg/dL Creatinine (0.5-1.4) mg/dL Estim Creat Clear Calc Estimated GFR Random Glucose (60-115) mg/dL Lactic Acid (0.5-2.0) mmol/L Calcium (8.4-10.2) mg/dL Troponin I High Sens (<3.5-17.0) ng/L COVID-19 ([facility]) (Negative) COVID-19 Clin Com Influenza Type A ([facility]) (Negative) Influenza Type B ([facility]) (Negative) Influenza A & B Note S. pyogenes GrpA [facility] Negative (Negative) Imaging Data Chest x-ray: Attestation: I personally reviewed and interpreted this imaging study as follows: My impression: no infiltrate Discharge Plan Discharge Clinical Impression: COVID-19 Patient Disposition: Home, Self-Care Instructions: COVID-19 (Coronavirus Disease 2019) (ED) Additional Instructions: May alternate tylenol 1gm with motrin 800mg every 3 hours Prescriptions: New ondansetron 4 mg tablet,disintegrating 4 mg PO Q8H 4 Days Qty: 12 0RF No Action atorvastatin 10 mg tablet 10 mg PO DAILY Qty: 90 2RF estradiol [Estrace] 0.01 % (0.1 mg/gram) cream See Rx Instructions .Route DAILY 30 Days Qty: 42.5 1RF Rx Instructions: pea sized amount per urethra daily; cholecalciferol (vitamin D3) 50 mcg (2,000 unit) tablet 50 mcg PO DAILY Qty: 90 3RF simethicone [Gas Relief (simethicone)] 80 mg tablet,chewable 80 mg PO TID-QID MDD 6 PRN (Reason: abdominal distention) 30 Days Qty: 120 4RF fluticasone propionate 50 mcg/actuation spray,suspension 2 spray intranasal DAILY PRN (Reason: allergy symptoms) Qty: 16 3RF fexofenadine 180 mg tablet 180 mg PO DAILY 90 Days Qty: 90 3RF cetirizine 10 mg tablet 10 mg PO DAILY Qty: 90 3RF alprazolam 0.25 mg tablet 0.25 mg PO DAILY Qty: 7 0RF sertraline 25 mg tablet 25 mg PO DAILY 30 Days Qty: 90 2RF amoxicillin-pot clavulanate [Augmentin] 500-125 mg tablet 1 tab PO BID 10 Days Qty: 20 0RF buspirone 15 mg tablet 15 mg PO BID Qty: 180 0RF hydrocodone-acetaminophen 5-325 mg tablet 1 tab PO Q6H PRN (Reason: pain) Qty: 12 0RF multivitamin Tablet 1 tab PO DAILY 0RF phenazopyridine [Pyridium] 100 mg tablet 100 mg PO TID PRN (Reason: pain) Qty: 6 0RF terconazole 0.4 % cream 1 appful vaginal BEDTIME 7 Days Qty: 45 0RF benzonatate 200 mg capsule 200 mg PO TID PRN (Reason: cough) 7 Days Qty: 21 0RF albuterol sulfate 90 mcg/actuation HFA aerosol inhaler 1 inh inhalation QID PRN (Reason: shortness of breath or wheezing) 30 Days Qty: 8.5 0RF diclofenac sodium [Voltaren Arthritis Pain] 1 % gel 4 g topical QID Qty: 100 1RF Rx Instructions: apply to single knee, ankle, foot; for foot includes sole/toes/top of foot amitriptyline 10 mg tablet 10 mg PO BEDTIME 0RF baclofen 20 mg tablet 20 mg PO BEDTIME 0RF pantoprazole 40 mg tablet,delayed release (DR/EC) 40 mg PO DAILY Qty: 30 6RF psyllium husk [Daily Fiber] 0.52 gram capsule 1.04 g PO BID 30 Days Qty: 120 6RF Acidophilus Capsule 100 mg PO DAILY Qty: 30 6RF Referrals: Po,Gigi Fraser MD [Primary Care Provider] - 1 week Stand Alone Forms: Work/School Release Interventions: ED Discharge Assessment Last Done: 11/26/21 05:20 Discharge Date/Time: 11/26/21 05:21
[2021-11-26] MEDS: Acetaminophen 325 MG TABLET 975 MG PO (05:08)
[2021-11-26] MEDS: Ondansetron ODT 4 MG TAB.RAPDIS TRANSLINGU (05:09)
== END 2021-11-26 05:21 | disposition home or self-care (01) ==
PROVIDERS: Emergency Provider Emergency Medicine; PCP Internal Medicine
DX: U07.1 COVID-19 (principal); R07.89 Other chest pain; R50.9 Fever, unspecified; R51.9 Headache, unspecified; Z79.899 Other long term (current) drug therapy; Z87.891 Personal history of nicotine dependence
CPT/HCPCS: 36415; 71045; 80048; 83605; 84484; 85025; 87040; 87502; 87635; 87651; 93005; 99284

== ENCOUNTER 2021-11-28 09:19 | Emergency (ER) | payer OTHER, SELFPAY ==
--- NOTE | ~2021-11-28 | CT_ITS ---
EXAMINATION: CT ABDOMEN AND PELVIS WITHOUT CONTRAST CLINICAL INFORMATION: Left-sided abdominal pain COMPARISON: Abdominal ultrasound 08/23/[address] abdomen pelvis 10/12/2020 TECHNIQUE: Multidetector volumetric imaging was performed from the superior aspect of the liver through the pubic symphysis. Sagittal and coronal reformatted images were obtained on the technologist's workstation. This CT examination was performed using dose optimization techniques as appropriate, variously including the following: *Automated exposure control *Adjustment of mA and/or kV according to patient size (this includes techniques or standardized protocols for targeted exams where dose is matched to indication/reason for exam; i.e. extremities or head) *Use of iterative reconstruction technique DLP: 524 mGy-cm FINDINGS: Visualized lung bases are well aerated. The liver demonstrates normal size, contour and attenuation. The gallbladder is normal in appearance. The pancreas, spleen and adrenal glands are unremarkable. Symmetrically sized kidneys. No renal calculi or hydronephrosis bilaterally. Normal caliber loops of small and large bowel. There is diffuse circumferential mucosal thickening with adjacent mesenteric stranding involving the entirety of the descending colon. There is mild sigmoid colon diverticulosis without CT evidence to suggest active diverticulitis. The abdominal aorta is normal in caliber. No gross retroperitoneal lymphadenopathy. There appears to be mild diffuse bladder wall thickening, nonspecific. Unremarkable CT appearance of the uterus. No gross free pelvic fluid. No inguinal lymphadenopathy. No acute osseous abnormality. CT/CT abdomen pelvis wo con IMPRESSION: CT findings most consistent with colitis of the descending colon, likely infectious or inflammatory. Clinical correlation recommended. Fleischner guidelines were followed.
[2021-11-28 09:24] VITALS: BP 121/64; PULSE 102; RESP 18; TEMP 37.3; O2SAT 95; BMI 25.9
--- NOTE | 2021-11-28 09:27 | ED.NAVMDI ---
HPI - Nausea/Vomiting/Diarrhea General Chief complaint: Abdominal Pain Stated complaint: +COVID,DIARRHEA,VOMITING,LLQ PAIN PER EMS Time Seen by Provider: 11/28/21 09:27 Source: patient Mode of arrival: EMS Limitations: no limitations History of Present Illness MD elicited complaint: nausea, vomiting, diarrhea and abdominal pain Pertinent past history: other (dx with COVID 4/2 symptoms started Friday vaccinated x 2) Onset (ago): day(s) (2) Description of vomiting: watery Description of diarrhea: blood (x 2) and mucus Associated nausea: Yes Associated abdominal pain: Yes Location of pain: LUQ and LLQ Pain consistency: constant Severity: severe Quality: stabbing Exacerbating factors: eating Relieving factors: none Context: other (dx with COVID no IBD, no abx use) Associated symptoms: fever/chills, loss of appetite, malaise, nausea/vomiting and other (diarrhea, fevers) Treatment prior to arrival: none Related Data Home Medications Medication Instructions Recorded Confirmed baclofen 20 mg tablet 20 mg PO BEDTIME 11/06/20 10/17/21 multivitamin 1 tab PO DAILY 11/16/20 10/17/21 amitriptyline 10 mg tablet 10 mg PO BEDTIME 04/13/21 10/17/21 Previous Rx's Medication Instructions Recorded phenazopyridine 100 mg tablet 100 mg PO TID PRN #6 tab 06/14/21 (Pyridium) terconazole 0.4 % vaginal cream 1 appful VAGINAL BEDTIME 7 Days 06/14/21 #45 g atorvastatin 10 mg tablet 10 mg PO DAILY #90 tab 07/03/21 cholecalciferol (vitamin D3) 50 50 mcg PO DAILY #90 tab 08/21/21 mcg (2,000 unit) tablet estradiol (Estrace) See Rx Instructions .ROUTE DAILY 08/21/21 30 Days #42.5 g fluticasone propionate 50 2 spray INTRANASAL DAILY PRN #16 ml 08/29/21 mcg/actuation nasal spray,suspension simethicone 80 mg chewable tablet 80 mg PO TID-QID PRN 30 Days #120 08/29/21 (Gas Relief (simethicone)) tab MDD 6 fexofenadine 180 mg tablet 180 mg PO DAILY 90 Days #90 tab 08/31/21 sertraline 25 mg tablet 25 mg PO DAILY 30 Days #30 tab 08/31/21 pantoprazole 40 mg tablet,delayed 40 mg PO DAILY #30 tab 09/03/21 release psyllium husk 0.52 gram capsule 1.04 g PO BID 30 Days #120 cap 09/03/21 (Daily Fiber) diclofenac sodium 1 % topical gel 4 g TOPICAL QID #100 g 10/03/21 (Voltaren Arthritis Pain) cetirizine 10 mg tablet 10 mg PO DAILY #90 tab 10/11/21 alprazolam 0.25 mg tablet 0.25 mg PO DAILY #7 tab 11/13/21 Lactobacillus acidophilus 100 mg PO DAILY #30 cap 11/19/21 (Acidophilus) buspirone 15 mg tablet 15 mg PO BID #30 tab 11/19/21 ondansetron 4 mg disintegrating 4 mg PO Q8H 4 Days #12 tab 11/26/21 tablet hydrocodone 5 mg-acetaminophen 325 1 tab PO Q6H PRN #12 tab 11/28/21 mg tablet levofloxacin 500 mg tablet 500 mg PO DAILY #7 tab 11/28/21 metronidazole 500 mg tablet 500 mg PO BID 7 Days #14 tab 11/28/21 Allergies Allergy/AdvReac Type Severity Reaction Status Date / Time latex [Latex] Allergy Mild SWELLING/IT Verified 11/26/21 03:53 ROSSANA Sulfa (Sulfonamide Allergy Mild SWELLING/ITCHING, Verified 11/26/21 03:53 Antibiotics) pruritis sulfamethoxazole Allergy Unknown ITCHY/HIVES Verified 11/26/21 03:53 [From BACTRIM] trimethoprim [From BACTRIM] Allergy Unknown ITCHY/HIVES Verified 11/26/21 03:53 metoclopramide [From REGLAN] AdvReac Unknown AGITATION Verified 11/26/21 03:53 Review of Systems Review of Systems: Constitutional : No Weight loss, pos Fever, pos Chills ENT/Mouth : No sore throat, No Rhinorrhea Eyes: No Swelling, No Redness Cardiovascular : No Chest Pain, No SOB, NoEdema Respiratory : No Cough, No Sputum, No Wheezing Gastrointestinal : Positive Nausea, Positive Vomiting, positive Diarrhea, positive abdominal Pain, pos Hematochezia, No Melena Genitourinary : No Dysuria, No Urinary Frequency, No Hematuria, No Urgency Musculoskeletal : No joint pain, No Myalgias, No Joint Swelling Skin : No Skin Lesions, No rash Neuro : No Weakness, No Numbness, No Dizziness, No Headache Psych : No Anxiety/Panic, No Depression Heme/Lymph: No Bruising, No Lymphadenopathy Endocrine : No Polyuria, No Polydipsia All other systems reviewed and are negative. Gastrointestinal: Gastrointestinal: Reports nausea PMFSH Past Medical History Attestation statement: The following information was validated with the patient. Medical History Benign hematuria Bilateral lower extremity pain Cervical disc herniation Erosive esophagitis Fatigue Frequency of micturition GERD (gastroesophageal reflux disease) Hearing deficit Hemorrhoids Hypercholesterolemia Impaired glucose tolerance Interstitial cystitis Interstitial cystitis (chronic) with hematuria Irritable bowel syndrome Irritable bowel syndrome Lateral meniscal tear Migraine Multiple thyroid nodules Restrictive lung disease Scalp cyst Thyroid nodule Toe pain, right Toe swelling Vitamin B12 deficiency Vitamin D deficiency Surgical History H/O esophagogastroduodenoscopy History of lumpectomy of left breast Hx of colonoscopy Hx of tubal ligation S/P excision of lipoma Family History Family History Father Skin cancer Mother Skin cancer High blood pressure Heart problem CVA (cerebral vascular accident) Maternal Grandfather Skin cancer Cancer FH: prostate cancer Brother Schizophrenia Other Mental health problem Social History Social History Household Members: None Housing: Apartment Alcohol intake: never Patient Tobacco Use Status: Former Tobacco user Tobacco use type: Cigarette e-Cigarette/Vaping Use: Never Used Second Hand Smoke Exposure: No Advance Directives: No Advance Directives Information Provided: No Patient : No service: No Current occupational status: employed 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 Oriented X3. No acute distress. Eyes: Pupils equal, round and reactive to light. ENT: Pharynx normal. Neck: Normal inspection. Neck supple. CVS: tachycardic heart rate and rhythm. Pulses normal. Respiratory: No respiratory distress. Breath sounds normal. Abdomen: Soft and moderate LLQ ttp no rebound Rectal: normal exam brown stool, slightly reddened non bleeding hemorrhoid Skin: Skin warm and dry. Normal skin color. Normal skin turgor. Extremities: No lower extremity edema. No calf ttp Neuro: Oriented X 3. No motor deficit. No sensory deficit. Course Course Course Narrative: + colitis infection suspected lactic acid negative 1216pm will start on IV zosyn she can tolerate PO no n/v no bleeding here guiac neg hemoglobin stable no WBC count can be managed as outpatient with oral abx patient agrees feels much better stable for DC obs for several hours no bloody stools here MDM - Nausea/Vomiting/Diarrhea MDM Narrative Medical decision making narrative: 50 yo female with hx of anxiety, pancreatitis, kidney stones, IBS, hemorrhoids comes in with c/o n/v/d and LLQ pain with 2 bloody stools - just dx with COVID. At this time suspect related to COVID 19 will obtain basic labs, hydrate, IV morphine for pain, CT scan for colitis. Dispo per results and findings. Lab Data Result diagrams: 11/28/21 10:04 11/28/21 10:04 Labs: Lab Results 11/28/21 11/28/21 11/28/21 Range/Units 10:04 10:04 10:04 WBC 8.5 (4.8-10.8) X10*3/uL RBC 4.57 (4.20-5.50) X10*6/uL Hgb 13.3 (12.0-16.0) g/dl Hct 39.9 (37.0-47.0) % MCV 87.3 (80.0-98.0) fL MCH 29.1 (27.0-33.0) pg MCHC 33.3 (31.0-35.0) g/dl RDW 12.3 (11.0-16.0) % Plt Count 266 (160-400) X10*3/uL MPV 9.6 (9.4-12.3) fL Immature Gran % (Auto) 0.2 (0.0-0.4) % Neut % (Auto) 75.9 H (45-73) % Lymph % (Auto) 17.0 L (20-40) % [place] % (Auto) 6.4 (2-11) % Eos % (Auto) 0.4 (0-4) % Baso % (Auto) 0.1 (0-2) % Lymph # (Auto) 1.4 (1.2-4.9) X10*3/uL [place] # (Auto) 0.5 (0.1-1.2) X10*3/uL Eos # (Auto) 0.0 (0.0-0.4) X10*3/uL Baso # (Auto) 0.0 (0.0-0.2) X10*3/uL Abs Immat Gran (auto) 0.02 (0.00-0.03) X10*3/uL Absolute Neuts (auto) 6.5 (2.0-8.3) x10*3/uL Absolute Nucleated RBC 0.000 (0.0-0.012) X10*3/uL Nucleated RBC % (auto) 0.0 (0.0-0.2) /100WBC Sodium 138 (135-145) mmol/L Potassium 3.6 (3.3-5.1) mmol/L Chloride 105 (96-108) mmol/L Carbon Dioxide 24 (22-29) mmol/L Anion Gap 13 (12-20) BUN 15 (9-16) mg/dL Creatinine 0.90 (0.5-1.4) mg/dL Estim Creat Clear Calc 73.0 Estimated GFR > 60 Random Glucose 135 H (60-115) mg/dL Lactic Acid 1.6 (0.5-2.0) mmol/L Calcium 9.4 (8.4-10.2) mg/dL Magnesium 1.9 (1.6-2.6) mg/dL Ferritin 164 (10-250) ng/mL Total Bilirubin 0.4 (0.0-1.0) mg/dL Direct Bilirubin < 0.2 (0.0-0.5) mg/dL AST 20 (5-31) U/L ALT 18 (0-31) U/L Alkaline Phosphatase 64 (39-117) U/L Lactate Dehydrogenase 168 (122-220) U/L C-Reactive Protein 1.93 H (< or = 0.50) mg/dL Total Protein 6.8 (6.5-8.0) g/dL Albumin 3.9 (3.5-5.0) g/dL Lipase 50 (8-78) U/L Stool Occult Blood (NEGATIVE) 11/28/21 Range/Units 10:06 WBC (4.8-10.8) X10*3/uL RBC (4.20-5.50) X10*6/uL Hgb (12.0-16.0) g/dl Hct (37.0-47.0) % MCV (80.0-98.0) fL MCH (27.0-33.0) pg MCHC (31.0-35.0) g/dl RDW (11.0-16.0) % Plt Count (160-400) X10*3/uL MPV (9.4-12.3) fL Immature Gran % (Auto) (0.0-0.4) % Neut % (Auto) (45-73) % Lymph % (Auto) (20-40) % [place] % (Auto) (2-11) % Eos % (Auto) (0-4) % Baso % (Auto) (0-2) % Lymph # (Auto) (1.2-4.9) X10*3/uL [place] # (Auto) (0.1-1.2) X10*3/uL Eos # (Auto) (0.0-0.4) X10*3/uL Baso # (Auto) (0.0-0.2) X10*3/uL Abs Immat Gran (auto) (0.00-0.03) X10*3/uL Absolute Neuts (auto) (2.0-8.3) x10*3/uL Absolute Nucleated RBC (0.0-0.012) X10*3/uL Nucleated RBC % (auto) (0.0-0.2) /100WBC Sodium (135-145) mmol/L Potassium (3.3-5.1) mmol/L Chloride (96-108) mmol/L Carbon Dioxide (22-29) mmol/L Anion Gap (12-20) BUN (9-16) mg/dL Creatinine (0.5-1.4) mg/dL Estim Creat Clear Calc Estimated GFR Random Glucose (60-115) mg/dL Lactic Acid (0.5-2.0) mmol/L Calcium (8.4-10.2) mg/dL Magnesium (1.6-2.6) mg/dL Ferritin (10-250) ng/mL Total Bilirubin (0.0-1.0) mg/dL Direct Bilirubin (0.0-0.5) mg/dL AST (5-31) U/L ALT (0-31) U/L Alkaline Phosphatase (39-117) U/L Lactate Dehydrogenase (122-220) U/L C-Reactive Protein (< or = 0.50) mg/dL Total Protein (6.5-8.0) g/dL Albumin (3.5-5.0) g/dL Lipase (8-78) U/L Stool Occult Blood NEGATIVE (NEGATIVE) ECG Data Attestation: I personally reviewed and interpreted this ECG as follows: ECG interpretation date: 11/28/21 ECG interpretation time: 10:10 Interpretation: Rate: 98 Rhythm: NSR [place]: rightward Normal P waves. Normal KASEY. Normal QRS complex. ST T wave : normal no SJ qTC: normal prior studies: no change 2020 The study has been interpreted contemporaneously by me. Discharge Plan Discharge Clinical Impression: COVID-19, Colitis Abdominal pain Qualifiers: Abdominal location: left lower quadrant Qualified Code(s): R10.32 - Left lower quadrant pain Patient Disposition: Home, Self-Care Instructions: Abdominal Pain (ED), Colitis (ED), COVID-19 (Coronavirus Disease 2019) (ED) Additional Instructions: return to ED for any worsening symptoms or concerns return for any worsening symptoms, bloody stools, fevers, worsening pain Prescriptions: New metronidazole 500 mg tablet 500 mg PO BID 7 Days Qty: 14 0RF levofloxacin 500 mg tablet 500 mg PO DAILY Qty: 7 0RF hydrocodone-acetaminophen 5-325 mg tablet 1 tab PO Q6H PRN (Reason: pain) Qty: 12 0RF No Action atorvastatin 10 mg tablet 10 mg PO DAILY Qty: 90 2RF estradiol [Estrace] 0.01 % (0.1 mg/gram) cream See Rx Instructions .Route DAILY 30 Days Qty: 42.5 1RF Rx Instructions: pea sized amount per urethra daily; cholecalciferol (vitamin D3) 50 mcg (2,000 unit) tablet 50 mcg PO DAILY Qty: 90 3RF simethicone [Gas Relief (simethicone)] 80 mg tablet,chewable 80 mg PO TID-QID MDD 6 PRN (Reason: abdominal distention) 30 Days Qty: 120 4RF fluticasone propionate 50 mcg/actuation spray,suspension 2 spray intranasal DAILY PRN (Reason: allergy symptoms) Qty: 16 3RF fexofenadine 180 mg tablet 180 mg PO DAILY 90 Days Qty: 90 3RF cetirizine 10 mg tablet 10 mg PO DAILY Qty: 90 3RF alprazolam 0.25 mg tablet 0.25 mg PO DAILY Qty: 7 0RF ondansetron 4 mg tablet,disintegrating 4 mg PO Q8H 4 Days Qty: 12 0RF multivitamin Tablet 1 tab PO DAILY 0RF phenazopyridine [Pyridium] 100 mg tablet 100 mg PO TID PRN (Reason: pain) Qty: 6 0RF terconazole 0.4 % cream 1 appful vaginal BEDTIME 7 Days Qty: 45 0RF sertraline 25 mg tablet 25 mg PO DAILY 30 Days Qty: 30 3RF diclofenac sodium [Voltaren Arthritis Pain] 1 % gel 4 g topical QID Qty: 100 1RF Rx Instructions: apply to single knee, ankle, foot; for foot includes sole/toes/top of foot amitriptyline 10 mg tablet 10 mg PO BEDTIME 0RF baclofen 20 mg tablet 20 mg PO BEDTIME 0RF pantoprazole 40 mg tablet,delayed release (DR/EC) 40 mg PO DAILY Qty: 30 6RF psyllium husk [Daily Fiber] 0.52 gram capsule 1.04 g PO BID 30 Days Qty: 120 6RF buspirone 15 mg tablet 15 mg PO BID Qty: 30 0RF Acidophilus Capsule 100 mg PO DAILY Qty: 30 6RF
--- NOTE | 2021-11-28 09:38 | ECG_ITS ---
Test Reason : abdominal pain Blood Pressure : / mmHG Vent. Rate : 098 BPM Atrial Rate : 098 BPM P-R Int : 160 ms QRS Dur : 084 ms QT Int : 344 ms P-R-T Axes : 075 097 076 degrees QTc Int : 439 ms Normal sinus rhythm Rightward axis Low voltage QRS Abnormal ECG When compared with ECG of 26-NOV-2021 03:38, No significant change was found Referred By: Rut Walton Electronically Signed By:Jamar Sullivan
[2021-11-28] MEDS: ondansetron HCL 4 MG/2 ML VIAL IVPUSH (10:10)
[2021-11-28] MEDS: 0.9 % Sodium Chloride 1,000 ML 999 ML IVCONT ×2 (10:10→11:10)
[2021-11-28 10:11] LABS: MANUAL DIFF FLAG NO
[2021-11-28 10:12] LABS: OBS Int Ctl Valid YES
[2021-11-28 10:13] LABS: OBS1 NEGATIVE (NEGATIVE)
[2021-11-28 10:13] LABS: Basophils Percent Auto 0.1 % (0-2); Eosinophils Percent Auto 0.4 % (0-4); Hematocrit 39.9 % (37.0-47.0); Hemoglobin 13.3 g/dl (12.0-16.0); Imm Gran Abs Auto 0.02 X10*3/uL (0.00-0.03); Imm Gran Pct Auto 0.2 % (0.0-0.4); Lymphocytes Absolute Auto 1.4 X10*3/uL (1.2-4.9); Mean Corpuscular HGB Conc 33.3 g/dl (31.0-35.0); Mean Corpuscular Hemoglobin 29.1 pg (27.0-33.0); Mean Corpuscular Volume 87.3 fL (80.0-98.0); Mean Platelet Volume 9.6 fL (9.4-12.3); Monocytes Absolute Auto 0.5 X10*3/uL (0.1-1.2); Monocytes Percent Auto 6.4 % (2-11); Neutrophils Absolute Auto 6.5 x10*3/uL (2.0-8.3); Neutrophils Percent Auto 75.9 % (45-73); Platelet Count 266 X10*3/uL (160-400); Red Blood Count 4.57 X10*6/uL (4.20-5.50); Red Cell Distribution Width 12.3 % (11.0-16.0); White Blood Count 8.5 X10*3/uL (4.8-10.8)
[2021-11-28 10:24] LABS: Lactic Acid 1.6 mmol/L (0.5-2.0)
[2021-11-28 10:30] LABS: Alanine Aminotransferase 18 U/L (0-31); Albumin Level 3.9 g/dL (3.5-5.0); Alkaline Phosphatase 64 U/L (39-117); Anion Gap 13 (12-20); Aspartate Amino Transferase 20 U/L (5-31); Bilirubin Direct < 0.2 mg/dL (0.0-0.5); Bilirubin Total 0.4 mg/dL (0.0-1.0); Blood Urea Nitrogen 15 mg/dL (9-16); C Reactive Protein 1.93 mg/dL (< or = 0.50); Calcium 9.4 mg/dL (8.4-10.2); Carbon Dioxide 24 mmol/L (22-29); Chloride 105 mmol/L (96-108); Estimated Glomerular Filt Rate > 60; Glucose Random 135 mg/dL (60-115); Lactate Dehydrogenase 168 U/L (122-220); Lipase 50 U/L (8-78); Magnesium 1.9 mg/dL (1.6-2.6); Potassium 3.6 mmol/L (3.3-5.1); Sodium 138 mmol/L (135-145); Total Protein 6.8 g/dL (6.5-8.0)
[2021-11-28] MEDS: Ketorolac Tromethamine 15 MG/ML VIAL IVPUSH (10:30)
[2021-11-28 10:50] LABS: Ferritin 164 ng/mL (10-250)
--- NOTE | 2021-11-28 10:52 | PC.NURSE ---
Pt c/o of R hand IV hurting and requesting it be removed and new IV placed. IV appears WNL with no s/s of infiltration. Flushes well. Second IV placement attempted, pt had c/o while attempting 2nd IV that tourniquet was too tight and that she did not want it in her AC because it would also hurt . Pt agreed to continue but when needle was place, pt flinched and stated she would rather just keep the hand IV in place. Field IV remains in place at this time
[2021-11-28] MEDS: Piperacillin Sodium/Tazobactam 3.375 GM in 0.9 % Sodium Chloride 50 ML IV (13:08)
== END 2021-11-28 14:57 | disposition home or self-care (01) ==
PROVIDERS: Emergency Provider Emergency Medicine
DX: U07.1 COVID-19 (principal); K52.9 Noninfective gastroenteritis and colitis, unspecified; R10.32 Left lower quadrant pain
CPT/HCPCS: 36415; 74176; 80048; 80076; 82272; 82728; 83605; 83615; 83690; 83735; 85025; 86140; 87040; 93005; 96361; 96365; 96375; 99284; J1885; J2405; J2543

== ENCOUNTER 2021-12-04 10:42 | Outpatient (REF) | payer OTHER, SELFPAY ==
[2021-12-04 11:06] LABS: COVID-19 Test Positive (Negative)
== END 2021-12-04 10:43 | disposition home or self-care (01) ==
LOC: HO.LAB 10:42
PROVIDERS: Visit Provider Internal Medicine
DX: Z20.822 Contact with and (suspected) exposure to COVID-19 (principal)
CPT/HCPCS: 87635; C9803

== ENCOUNTER → 2021-12-25 13:12 | Outpatient (BNVA) | payer OTHER, SELFPAY | PROVIDERS: PCP Internal Medicine | DX: Z13.89 Encounter for screening for other disorder (principal) ==

== ENCOUNTER 2021-12-26 06:30 | Outpatient (REF) | payer OTHER, SELFPAY ==
[2021-12-26 07:37] LABS: Alanine Aminotransferase 20 U/L (0-31); Albumin Level 4.1 g/dL (3.5-5.0); Alkaline Phosphatase 62 U/L (39-117); Anion Gap 11 (12-20); Aspartate Amino Transferase 17 U/L (5-31); Bilirubin Total 0.3 mg/dL (0.0-1.0); Blood Urea Nitrogen 17 mg/dL (9-16); Carbon Dioxide 27 mmol/L (22-29); Chloride 107 mmol/L (96-108); Cholesterol 191 mg/dL; Estimated Glomerular Filt Rate > 60; Glucose Random 100 mg/dL (60-115); HDL Cholesterol 47 mg/dL; LDL Cholesterol Calculated 113 mg/dl; Potassium 4.2 mmol/L (3.3-5.1); Sodium 141 mmol/L (135-145); Triglycerides 155 mg/dL
[2021-12-26 07:43] LABS: Estimated Average Glucose 117 mg/dL; Hemoglobin A1c % 5.7 %
[2021-12-26 08:41] LABS: Appearance Urine HAZY; Color Urine YELLOW; Glucose Urine UA NEG (NEG); Leukocyte Esterase Urine NEG (NEG); Nitrite Urine NEG (NEG); PH 5.5 (5.0-8.0); Specific Gravity - Urine >= 1.030 (1.005-1.025); UACC Culture Trigger NO; Urine Blood 2+ (NEG); Urine Ketones NEG (NEG); Urine Protein NEG (NEG-TRACE)
[2021-12-26 09:02] LABS: Mucus Urine 3+ /LPF; Squamous Epithelial Cell Urine 1+ /LPF
== END 2021-12-26 06:31 | disposition home or self-care (01) ==
LOC: HO.LAB 06:30
PROVIDERS: PCP Internal Medicine; Visit Provider Internal Medicine
DX: R73.02 Impaired glucose tolerance (oral) (principal); E78.00 Pure hypercholesterolemia, unspecified
CPT/HCPCS: 36415; 80053; 80061; 81001; 83036

== ENCOUNTER → 2021-12-31 13:02 | Outpatient (BNVA) | payer OTHER, SELFPAY | PROVIDERS: PCP Internal Medicine; Referring Provider Internal Medicine; Visit Provider Nurse Practitioner | DX: K21.9 Gastro-esophageal reflux disease without esophagitis (principal); K22.10 Ulcer of esophagus without bleeding; K52.9 Noninfective gastroenteritis and colitis, unspecified; R74.8 Abnormal levels of other serum enzymes | CPT/HCPCS: 99212 ==

== ENCOUNTER 2022-01-14 07:03 | Outpatient (REF) | payer OTHER, SELFPAY ==
[2022-01-14 08:17] LABS: C Reactive Protein 0.23 mg/dL (< or = 0.50)
[2022-01-14 18:37] LABS: Appearance Urine CLEAR; Color Urine YELLOW; Glucose Urine UA NEG (NEG); Leukocyte Esterase Urine NEG (NEG); Nitrite Urine NEG (NEG); Specific Gravity - Urine >= 1.030 (1.005-1.025); UACC Culture Trigger NO; Urine Blood 1+ (NEG); Urine Ketones NEG (NEG); Urine Protein NEG (NEG-TRACE)
[2022-01-14 18:43] LABS: Mucus Urine TRACE /LPF; Squamous Epithelial Cell Urine TRACE /LPF
[2022-01-14 18:44] LABS: Calcium Oxalate Crystals Urine TRACE /LPF
[2022-01-14 18:45] LABS: WBC Urine 0-2 /HPF (0-4)
[2022-01-16 02:16] LABS: EBV-VCA IgM Ab <36.00 U/mL
== END 2022-01-14 07:04 | disposition home or self-care (01) ==
LOC: HO.LAB 07:03
PROVIDERS: PCP Internal Medicine; Visit Provider Nurse Practitioner
DX: K21.9 Gastro-esophageal reflux disease without esophagitis (principal)
CPT/HCPCS: 36415; 81001; 86140; 86664; 86665

== ENCOUNTER → 2022-01-15 10:12 | Outpatient (BNVA) | payer OTHER, SELFPAY | PROVIDERS: PCP Internal Medicine; Visit Provider Surgery Vascular Surgery | DX: I83.11 Varicose veins of right lower extremity with inflammation (principal) | CPT/HCPCS: 99202 ==

== ENCOUNTER → 2022-01-22 16:21 | Outpatient (BNVA) | payer OTHER, SELFPAY | PROVIDERS: PCP Internal Medicine; Referring Provider Internal Medicine; Visit Provider Nurse Practitioner | DX: K59.04 Chronic idiopathic constipation (principal); K22.10 Ulcer of esophagus without bleeding; R82.998 Other abnormal findings in urine | CPT/HCPCS: 99212 ==

== ENCOUNTER 2022-01-25 14:00 | Outpatient (RCR) | payer OTHER, SELFPAY ==
--- NOTE | 2021-11-02 16:34 | MHC.PT.EP ---
[facility] [place] [facility] [place] Office [place] Office [address] [phone] F: [phone] F: [phone] F: [phone] F: [phone] Physical Therapy Plan of Care Date of Evaluation: Date of Surgery: NA Diagnosis: PAIN IN R AND L KNEE Assessment: Pt IS 50 YO F REFERRED TO PT FROM [facility]AL[facility] WITH B KNEE PAIN. Pt REPORTS L KNEE WORSE THAN R. REPORTS INSIDIOUS ONSET BUT WAS STARTING TO DO A STEPPER TYPE EXERCISE. PRESENTS WITH WEAKNESS L LE WITH LAT TILTED PATELLA WITH TIGHTNESS ITB L, LIMITED L KNEE ROM (JANINE EXTENSION), ANTALGIC GT, PAIN AFFECTING ADLS. GOOD PT CANDIDATE TO ADDRESS THESE ISSUES Frequency and Duration: The patient will be seen 2X/WK X 8 WKS Short Term Goals: 1. INCREASE POSTURE AWARENESS AND AWARENESS OF KNEE CARE 2. L KNEE ROM 0-135 3. DECREASED FREQUENCY L KNEE BUCKLING Musical Instrument Mechanic Goals: 1. I HEP WITH DC EX PLAN 2. DECREASED L KNEE PAIN AT LEAST 50% WITH ADLS 3. IMPROVED LEFI 4. INCREASED L KNEE STRENGTH 1/2 MM GRADE Treatment Plan: Modalities to reduce pain, spasms and effusion. Manual therapy to restore motion and function. Therapeutic exercise to improve strength and flexibility. Neuromuscular re-education for posture and balance. Therapeutic activities to return to functional activities of daily living. Electronically signed by: SUE ESQUIVEL PT Please sign and return to therapist. Thank you for your referral.
--- NOTE | 2022-02-15 09:59 | MHC.PT.DC ---
[facility] [place] Office [place] Office [place] Office [address] Fransisco Dewitt 140 [facility] [phone] F: [phone] F: [phone] F: [phone] F: [phone] Physical Therapy Discharge Report Diagnosis: PAIN IN R AND L KNEE Date of Surgery: NA Date of Evaluation: 11/02/21 Date of Discharge: 02/15/22 Treatments to Date: 9 Cancellations to Date: No Shows to Date: Discharge Status: Achieved Goals Improved Function Independent with HEP Discharge Summary: HAS MET MOST PT GOALS Electronically signed by: SUE ESQUIVEL PT Please sign and return to therapist. Thank you for your referral.
== END 2022-02-15 10:00 | disposition home or self-care (01) ==
LOC: HO.PT 14:00
PROVIDERS: PCP Internal Medicine; Visit Provider Nurse Practitioner Family
DX: M25.561 Pain in right knee (principal)
CPT/HCPCS: 97110; 97140; 97161; 97530; 97535

== ENCOUNTER 2022-02-19 08:48 | Outpatient (REF) | payer OTHER, SELFPAY ==
[2022-02-19 11:18] LABS: Appearance Urine CLEAR; Color Urine YELLOW; Glucose Urine UA NEG (NEG); Leukocyte Esterase Urine NEG (NEG); Nitrite Urine NEG (NEG); Specific Gravity - Urine <= 1.005 (1.005-1.025); UACC Culture Trigger NO; Urine Blood 2+ (NEG); Urine Ketones NEG (NEG); Urine Protein NEG (NEG-TRACE)
[2022-02-19 12:19] LABS: RBC Urine 0-2 /HPF (0); WBC Urine 0-2 /HPF (0-4)
== END 2022-02-19 08:49 | disposition home or self-care (01) ==
LOC: HO.LAB 08:48
PROVIDERS: PCP Internal Medicine; Visit Provider Internal Medicine
DX: R30.0 Dysuria (principal)
CPT/HCPCS: 81001; 81003

== ENCOUNTER 2022-03-13 12:46 | Outpatient (REF) | payer OTHER, SELFPAY ==
--- NOTE | ~2022-03-13 | US_ITS ---
EXAMINATION: US LOWER EXTREMITY VENOUS (REFLUX EXAM), BILATERAL CLINICAL INDICATION: This a 51-year-old female with venous insufficiency and varicose veins. COMPARISON: None. TECHNIQUE: Color flow triplex imaging and compression Doppler was performed to evaluate both the deep and the superficial systems bilaterally. To evaluate the superficial system, the examination was performed in the upright position. Color-flow Doppler ultrasound and compression ultrasound were utilized. In addition, maneuvers were utilized to demonstrate reflux. FINDINGS: 1. DEEP VENOUS ULTRASOUND OF THE RIGHT LOWER EXTREMITY: Common Femoral Vein: Compressible, normal respiratory variation and augmented flow. Femoral vein: Compressible, normal color flow and augmentation. Popliteal Vein: Compressible, normal augmentation. Deep Reflux: There is no evidence of reflux in the deep system in either the common femoral vein or the popliteal vein. There is no evidence of a Suarez's cyst. 2. SUPERFICIAL ULTRASOUND WITH DOPPLER OF RIGHT LOWER EXTREMITY: GREAT SAPHENOUS VEIN: Saphenofemoral Junction: 0.5 cm Mid Thigh: 0.3 cm Above Knee: 0.2 cm Below Knee: 0.2 cm Mid Calf: 0.2 cm Ankle: 0.3 cm GSV REFLUX: No evidence of reflux. DUPLICATED GREAT SAPHENOUS VEIN: There is a 0.3 cm duplicated lateral great saphenous vein without reflux. SMALL SAPHENOUS VEIN: Proximal: 0.1 cm Distal: 0.2 cm SSV REFLUX: No evidence of reflux. VEIN OF GIACOMINI: None Imaged. PERFORATORS: There is a 0.2 cm proximal calf milk route deliverer without reflux. VARICOSITIES: None Imaged 3. DEEP VENOUS ULTRASOUND OF THE LEFT LOWER EXTREMITY: Common Femoral Vein: Compressible, normal respiratory variation and augmented flow. Femoral Vein: Compressible, normal color flow and augmentation. Popliteal Vein: Compressible, normal augmentation. Deep Reflux: There is no evidence of reflux in the deep system in either the common femoral vein or the popliteal vein. There is no evidence of a Suarez's cyst. 4. SUPERFICIAL ULTRASOUND WITH DOPPLER OF LEFT LOWER EXTREMITY: GREAT SAPHENOUS VEIN: Saphenofemoral Junction: 0.6 cm. There is no reflux. Mid Thigh: 0.2 cm. There is no reflux. Above Knee: 0.2 cm. The reflux time is 1056 ms. Below Knee: 0.2 cm. There is no reflux at this level and below. Mid Calf: 0.2 cm Ankle: 0.2 cm GSV REFLUX: There is only isolated reflux in the above-knee region. DUPLICATED GREAT SAPHENOUS VEIN: There is a 0.4 cm duplicated lateral great saphenous vein without reflux to SMALL SAPHENOUS VEIN: Proximal: 0.2 cm Distal: 0.1 cm SSV REFLUX: No evidence of reflux. VEIN OF GIACOMINI: None Imaged. PERFORATORS: There is a 0.2 cm mid thigh milk route deliverer without reflux. VARICOSITIES: None Imaged US/US venous duplex LE BI IMPRESSION: 1. There are bilateral patent great saphenous veins and small saphenous veins without evidence of reflux at the junction.
== END 2022-03-13 12:47 | disposition home or self-care (01) ==
LOC: HO.US 12:46
PROVIDERS: Visit Provider Surgery Vascular Surgery
DX: I83.11 Varicose veins of right lower extremity with inflammation (principal)
CPT/HCPCS: 93970

== ENCOUNTER → 2022-03-15 11:51 | Outpatient (BNVA) | payer OTHER, SELFPAY | PROVIDERS: PCP Internal Medicine; Visit Provider Nurse Practitioner | DX: R10.9 Unspecified abdominal pain (principal); K22.10 Ulcer of esophagus without bleeding; K59.04 Chronic idiopathic constipation; R13.12 Dysphagia, oropharyngeal phase | CPT/HCPCS: 99212 ==

== ENCOUNTER → 2022-03-19 13:02 | Outpatient (BNVA) | payer OTHER, SELFPAY | PROVIDERS: PCP Internal Medicine; Visit Provider Surgery Vascular Surgery | DX: I83.11 Varicose veins of right lower extremity with inflammation (principal) | CPT/HCPCS: 99212 ==

== ENCOUNTER 2022-04-16 06:55 | Outpatient (REF) | payer OTHER, SELFPAY ==
[2022-04-16 07:08] LABS: MANUAL DIFF FLAG NO
[2022-04-16 07:17] LABS: Basophils Percent Auto 0.5 % (0-2); Eosinophils Absolute Auto 0.2 X10*3/uL (0.0-0.4); Eosinophils Percent Auto 2.9 % (0-4); Hematocrit 43.2 % (37.0-47.0); Hemoglobin 14.4 g/dl (12.0-16.0); Imm Gran Abs Auto 0.02 X10*3/uL (0.00-0.03); Imm Gran Pct Auto 0.3 % (0.0-0.4); Lymphocytes Absolute Auto 2.4 X10*3/uL (1.2-4.9); Lymphocytes Percent Auto 41.4 % (20-40); Mean Corpuscular HGB Conc 33.3 g/dl (31.0-35.0); Mean Corpuscular Hemoglobin 28.9 pg (27.0-33.0); Mean Corpuscular Volume 86.7 fL (80.0-98.0); Mean Platelet Volume 9.7 fL (9.4-12.3); Monocytes Absolute Auto 0.4 X10*3/uL (0.1-1.2); Neutrophils Absolute Auto 2.9 x10*3/uL (2.0-8.3); Neutrophils Percent Auto 48.9 % (45-73); Platelet Count 293 X10*3/uL (160-400); Red Blood Count 4.98 X10*6/uL (4.20-5.50); Red Cell Distribution Width 12.4 % (11.0-16.0); White Blood Count 5.9 X10*3/uL (4.8-10.8)
[2022-04-16 07:51] LABS: Alanine Aminotransferase 20 U/L (0-31); Albumin Level 4.2 g/dL (3.5-5.0); Alkaline Phosphatase 92 U/L (39-117); Anion Gap 15 (12-20); Aspartate Amino Transferase 16 U/L (5-31); Bilirubin Total 0.6 mg/dL (0.0-1.0); Blood Urea Nitrogen 14 mg/dL (9-16); Calcium 9.6 mg/dL (8.4-10.2); Carbon Dioxide 27 mmol/L (22-29); Chloride 103 mmol/L (96-108); Cholesterol 350 mg/dL; Estimated Glomerular Filt Rate > 60; Glucose Random 109 mg/dL (60-115); HDL Cholesterol 51 mg/dL; LDL Cholesterol Calculated 224 mg/dl; Potassium 4.1 mmol/L (3.3-5.1); Sodium 141 mmol/L (135-145); Total Protein 7.3 g/dL (6.5-8.0); Triglycerides 377 mg/dL
[2022-04-16 08:04] LABS: Appearance Urine Clear; Color Urine Yellow; Glucose Urine UA Negative (Negative); Leukocyte Esterase Urine Small (1+) (Negative); Nitrite Urine Negative (Negative); PH 5.5 (5.0-9.0); UMIC TRIGGER UACC YES; Urine Blood Moderate (2+) (Negative); Urine Ketones Negative (Negative); Urine Protein Negative (Neg-Trace)
[2022-04-16 08:14] LABS: Estimated Average Glucose 117 mg/dL; Free T4 (Free Thyroxine) 1.04 ng/dL (0.71-1.85); Hemoglobin A1c % 5.7 %; Thyroid Stimulating Hormone 1.95 uIU/mL (0.32-4.0); Vitamin D 25-OH Total 30.2 ng/mL (>30)
[2022-04-16 08:18] LABS: Bacteria Urine None Seen (None Seen); Hyaline Casts Urine 0-2 /LPF (0-2); UACC Culture Trigger YES; WBC Urine 0-5 /HPF (0-5)
[2022-04-16 08:24] LABS: Folate 16.4 ng/mL (> or = 4.0); Vitamin B12 439 pg/mL (200-900)
== END 2022-04-16 06:56 | disposition home or self-care (01) ==
LOC: HO.LAB 06:55
PROVIDERS: PCP Internal Medicine; Visit Provider Internal Medicine
DX: R73.02 Impaired glucose tolerance (oral) (principal); E78.00 Pure hypercholesterolemia, unspecified; R30.0 Dysuria; R31.9 Hematuria, unspecified
CPT/HCPCS: 36415; 80053; 80061; 81001; 81003; 82306; 82607; 82746; 83036; 84439; 84443; 85025; 87086

== ENCOUNTER → 2022-04-26 13:00 | Outpatient (BNVA) | payer OTHER, SELFPAY | PROVIDERS: PCP Internal Medicine; Visit Provider Nurse Practitioner | DX: K59.04 Chronic idiopathic constipation (principal); K21.9 Gastro-esophageal reflux disease without esophagitis; K22.10 Ulcer of esophagus without bleeding; R19.7 Diarrhea, unspecified; R13.12 Dysphagia, oropharyngeal phase | CPT/HCPCS: 99212 ==

== ENCOUNTER 2022-05-07 12:08 | Outpatient (REF) | payer OTHER, SELFPAY ==
[2022-05-07 14:34] LABS: Appearance Urine Cloudy; Color Urine Yellow; Glucose Urine UA Negative (Negative); Leukocyte Esterase Urine Trace (Negative); Nitrite Urine Negative (Negative); PH 8.5 (5.0-9.0); Specific Gravity - Urine 1.015 (1.005-1.025); UMIC TRIGGER UACC YES; Urine Blood Trace (Negative); Urine Ketones Negative (Negative); Urine Protein Negative (Neg-Trace)
[2022-05-07 14:41] LABS: Bacteria Urine None Seen (None Seen); Hyaline Casts Urine 0-2 /LPF (0-2); Squamous Epithelial Cell Urine 0-2 /HPF (0-2); WBC Urine 0-5 /HPF (0-5)
== END 2022-05-07 12:09 | disposition home or self-care (01) ==
LOC: HO.LAB 12:08
PROVIDERS: Absent Provider Nurse Practitioner; PCP Internal Medicine; Visit Provider Internal Medicine
DX: N30.10 Interstitial cystitis (chronic) without hematuria (principal)
CPT/HCPCS: 81001

== ENCOUNTER 2022-05-09 10:14 | Outpatient (REF) | payer OTHER, SELFPAY ==
--- NOTE | ~2022-05-09 | US_ITS ---
EXAMINATION: US RETROPERITONEAL LIMITED (RENAL ONLY) CLINICAL INFORMATION: Hematuria, unspecified. COMPARISON: CT abdomen and pelvis without contrast 11/28/2021. Ultrasound abdomen complete 08/23/2021. Ultrasound retroperitoneal complete (renal) 05/21/2021. X-ray abdomen KUB 10/14/2013. TECHNIQUE: Real-time imaging of the kidneys. FINDINGS: RIGHT KIDNEY: 11.2 x 4.9 x 5.3 cm (SAG x AP x TRV). The kidney is normal in size, contour, and echogenicity. Renal cortical thickness is normal. No calculi or focal parenchymal lesions. No hydronephrosis. LEFT KIDNEY: 11.1 x 5.7 x 5.0 cm (SAG x AP x TRV). The kidney is normal in size, contour, and echogenicity. Renal cortical thickness is normal. No calculi or focal parenchymal lesions. No hydronephrosis. US/US renal BI IMPRESSION: Unremarkable renal ultrasound.
== END 2022-05-09 10:15 | disposition home or self-care (01) ==
LOC: HO.HMGCX 10:14
PROVIDERS: PCP Internal Medicine; Visit Provider Internal Medicine
DX: R31.9 Hematuria, unspecified (principal)
CPT/HCPCS: 76775

== ENCOUNTER 2022-05-18 09:02 | Outpatient (REF) | payer OTHER, SELFPAY ==
[2022-05-18 10:29] LABS: C Reactive Protein 0.14 mg/dL (< or = 0.50)
[2022-05-18 10:32] LABS: Appearance Urine Clear; Color Urine Yellow; Glucose Urine UA Negative (Negative); Leukocyte Esterase Urine Small (1+) (Negative); Nitrite Urine Negative (Negative); PH 5.5 (5.0-9.0); UMIC TRIGGER UACC YES; Urine Blood Moderate (2+) (Negative); Urine Ketones Negative (Negative); Urine Protein Negative (Neg-Trace)
[2022-05-18 10:56] LABS: Bacteria Urine None Seen (None Seen); Hyaline Casts Urine 0-2 /LPF (0-2); Squamous Epithelial Cell Urine 0-2 /HPF (0-2); UACC Culture Trigger YES; WBC Urine 0-5 /HPF (0-5)
== END 2022-05-18 09:03 | disposition home or self-care (01) ==
LOC: HO.LAB 09:02
PROVIDERS: PCP Internal Medicine; Visit Provider Nurse Practitioner
DX: K59.04 Chronic idiopathic constipation (principal); R19.7 Diarrhea, unspecified
CPT/HCPCS: 36415; 81001; 86140; 87086

== ENCOUNTER → 2022-05-29 08:19 | Outpatient (REF) | payer OTHER, SELFPAY ==
--- NOTE | 2022-05-29 08:29 | ECG_ITS ---
Test Reason : R07.9 Chest paim Blood Pressure : / mmHG Vent. Rate : 068 BPM Atrial Rate : 068 BPM P-R Int : 164 ms QRS Dur : 090 ms QT Int : 398 ms P-R-T Axes : 064 070 067 degrees QTc Int : 423 ms Normal sinus rhythm Normal ECG When compared with ECG of 28-NOV-2021 09:42, Heart rate has decreased Referred By: Elisabeth Frost Electronically Signed By:HAROON ROSARIO MD
== END ==
LOC: HO.CARD 08:19
PROVIDERS: PCP Internal Medicine; Visit Provider Nurse Practitioner Family
DX: R07.9 Chest pain, unspecified (principal)
CPT/HCPCS: 93005

== ENCOUNTER → 2022-05-30 12:32 | Outpatient (BNVA) | payer OTHER, SELFPAY | PROVIDERS: PCP Internal Medicine; Referring Provider Internal Medicine; Visit Provider Nurse Practitioner | DX: K30 Functional dyspepsia (principal); K22.10 Ulcer of esophagus without bleeding; K59.04 Chronic idiopathic constipation; R10.9 Unspecified abdominal pain | CPT/HCPCS: 99212 ==

== ENCOUNTER → 2022-06-05 14:20 | Outpatient (BNVA) | payer OTHER, SELFPAY | PROVIDERS: PCP Internal Medicine; Visit Provider Urology | DX: N30.10 Interstitial cystitis (chronic) without hematuria (principal); R39.15 Urgency of urination; R32 Unspecified urinary incontinence | CPT/HCPCS: 51798; 99212 ==

== ENCOUNTER 2022-06-11 08:25 | Day surgery (SDC) | payer OTHER, SELFPAY ==
--- NOTE | 2022-06-10 14:56 | P.CONAN_ITS ---
Documented by User: Darcy Duong NP 06/10/22 14:57 HPI - Anesthesia Eval Consult details Narrative: 51yo F for Cystoscopy Hydrodistention of Bladder PMFSH Active Problems Active Problems: All Active Problems (Updated 06/05/22 @ 15:29 by Andressa Dawson MD) Urinary incontinence (Acute) Urgency of micturition (Acute) Abdominal pain (Acute) Delayed gastric emptying (Acute) Dysuria (Acute) Chest pain (Acute) Lightheadedness (Acute) Dizziness (Acute) Calcium oxalate crystals in urine (Acute) Chronic idiopathic constipation (Acute) Varicose veins of right lower extremity with inflammation (Acute) Colitis (Acute) Interstitial cystitis (Acute) COVID-19 (Acute) Elevated lipase (Acute) Varicose veins of legs (Acute) Pain in both knees (Acute) Allergic rhinitis (Acute) Right kidney stone (Acute) UTI (urinary tract infection) (Acute) Oropharyngeal dysphagia (Acute) Erosive esophagitis (Acute) Interstitial cystitis (chronic) with hematuria (Acute) Hematuria (Acute) Lumbar radiculopathy (Acute) Generalized anxiety disorder (Acute) Irritable bowel syndrome with constipation (Acute) Vitamin D deficiency (Acute) GERD (gastroesophageal reflux disease) (Acute) Multiple thyroid nodules (Acute) Impaired glucose tolerance (Acute) Migraine (Acute) Hypercholesterolemia (Acute) Past Medical History Medical History (Updated 06/05/22 @ 15:29 by Andressa Dawson MD) Abdominal cramping Acute conjunctivitis of left eye Allergic conjunctivitis Anxiety Benign hematuria Bilateral lower extremity pain Cervical disc herniation Chronic cough COVID-19 COVID-19 long hauler Diarrhea Erosive esophagitis Frequency of micturition Frequency of micturition GERD (gastroesophageal reflux disease) Hearing deficit Heart palpitations Hematuria Hemorrhoids Hypercholesterolemia Impaired glucose tolerance Interstitial cystitis Irritable bowel syndrome Lateral meniscal tear Migraine Multiple thyroid nodules Myalgia Nephrolithiasis Palpitations Post-vaccination reaction Restrictive lung disease Scalp cyst Suprapubic pain Toe pain, right Toe swelling Upper abdominal pain Vaginal itching Vaginal spotting Vitamin B12 deficiency Vitamin D deficiency Wound of right leg Family History Family History Father Skin cancer Mother Skin cancer High blood pressure Heart problem CVA (cerebral vascular accident) Maternal Grandfather Skin cancer Cancer FH: prostate cancer Brother Schizophrenia Other Mental health problem Surgical History Surgical History H/O esophagogastroduodenoscopy History of lumpectomy of left breast Hx of colonoscopy Hx of tubal ligation S/P excision of lipoma Social History Social History Household Members: None Housing: Apartment Alcohol intake: never Patient Tobacco Use Status: Former Tobacco user Tobacco use type: Cigarette e-Cigarette/Vaping Use: Never Used Second Hand Smoke Exposure: No Are you DNR?: No Advance Directives: No Advance Directives Information Provided: Yes Recently lost weight without trying: No Nutrition Risks: No Nutritional Risk Patient : No service: No Current occupational status: employed 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 Cognitive needs: No Hearing needs: No Vision needs: No Meds Allergies Allergy/AdvReac Type Severity Reaction Status Date / Time latex [Latex] Allergy Mild SWELLING/IT Verified 05/30/22 12:38 ROSSANA Sulfa (Sulfonamide Allergy Mild SWELLING/ITCHING, Verified 05/30/22 12:38 Antibiotics) pruritis sulfamethoxazole Allergy Unknown ITCHY/HIVES Verified 05/30/22 12:38 [From BACTRIM] trimethoprim [From BACTRIM] Allergy Unknown ITCHY/HIVES Verified 05/30/22 12:38 metoclopramide [From REGLAN] AdvReac Unknown AGITATION Verified 05/30/22 12:38 Home Medications Medication Instructions Recorded Confirmed Last Taken Type multivitamin 1 tab PO DAILY 11/16/20 04/26/22 Unknown History Lactobacillus acidophilus 100 mg 100 mg PO DAILY 12/31/21 04/26/22 Unknown History (1 billion cell) capsule sertraline 25 mg tablet 25 mg PO DAILY PRN 12/31/21 04/26/22 Unknown History nitrofurantoin 100 mg PO Q12H 05/30/22 Unknown History monohydrate/macrocrystals 100 mg capsule (Macrobid) Exam Exam Date and Time: June 10, 2022 1456 Pertinent Lab Results Pertinent Lab Results: Laboratory Tests 04/16/22 04/16/22 07:06 07:06 WBC 5.9 Hgb 14.4 Hct 43.2 Plt Count 293 Sodium 141 Potassium 4.1 Chloride 103 Carbon Dioxide 27 BUN 14 Creatinine 0.71 Assessment and Plan Assessment Anesthesia Assessment: Chart Reviewed Documented by User: Alvaro Monte MD 06/11/22 17:44 [facility] Past Medical History Medical History (Updated 06/05/22 @ 15:29 by Andressa Dawson MD) Abdominal cramping Acute conjunctivitis of left eye Allergic conjunctivitis Anxiety Benign hematuria Bilateral lower extremity pain Cervical disc herniation Chronic cough COVID-19 COVID-19 long hauler Diarrhea Erosive esophagitis Frequency of micturition Frequency of micturition GERD (gastroesophageal reflux disease) Hearing deficit Heart palpitations Hematuria Hemorrhoids Hypercholesterolemia Impaired glucose tolerance Interstitial cystitis Irritable bowel syndrome Lateral meniscal tear Migraine Multiple thyroid nodules Myalgia Nephrolithiasis Palpitations Post-vaccination reaction Restrictive lung disease Scalp cyst Suprapubic pain Toe pain, right Toe swelling Upper abdominal pain Vaginal itching Vaginal spotting Vitamin B12 deficiency Vitamin D deficiency Wound of right leg Functional capacity: independent ambulation Family History Family History Father Skin cancer Mother Skin cancer High blood pressure Heart problem CVA (cerebral vascular accident) Maternal Grandfather Skin cancer Cancer FH: prostate cancer Brother Schizophrenia Other Mental health problem Family history of problems with anesthesia: Yes Surgical History Surgical History H/O esophagogastroduodenoscopy History of lumpectomy of left breast Hx of colonoscopy Hx of tubal ligation S/P excision of lipoma History of Problems with Anesthesia: Yes (Ponv ) Social History Social History Household Members: None Housing: Apartment Alcohol intake: never Patient Tobacco Use Status: Former Tobacco user Tobacco use type: Cigarette e-Cigarette/Vaping Use: Never Used Second Hand Smoke Exposure: No Are you DNR?: No Advance Directives: No Advance Directives Information Provided: Yes Recently lost weight without trying: No Nutrition Risks: No Nutritional Risk Patient : No service: No Current occupational status: employed 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 Cognitive needs: No Hearing needs: No Vision needs: No Meds Allergies Allergy/AdvReac Type Severity Reaction Status Date / Time latex [Latex] Allergy Mild SWELLING/IT Verified 05/30/22 12:38 ROSSANA Sulfa (Sulfonamide Allergy Mild SWELLING/ITCHING, Verified 05/30/22 12:38 Antibiotics) pruritis sulfamethoxazole Allergy Unknown ITCHY/HIVES Verified 05/30/22 12:38 [From BACTRIM] trimethoprim [From BACTRIM] Allergy Unknown ITCHY/HIVES Verified 05/30/22 12:38 metoclopramide [From REGLAN] AdvReac Unknown AGITATION Verified 05/30/22 12:38 Home Medications Medication Instructions Recorded Confirmed Last Taken Type multivitamin 1 tab PO DAILY 11/16/20 04/26/22 Unknown History Lactobacillus acidophilus 100 mg 100 mg PO DAILY 12/31/21 04/26/22 Unknown History (1 billion cell) capsule sertraline 25 mg tablet 25 mg PO DAILY PRN 12/31/21 04/26/22 Unknown History nitrofurantoin 100 mg PO Q12H 05/30/22 Unknown History monohydrate/macrocrystals 100 mg capsule (Macrobid) Exam Airway Mallampati Class: III TM Dist: >3cm Neck ROM: Full Loose/Missing/Broken Teeth: Yes (Filling ) Heart: S1,S2 Lungs: b/l breath sounds Assessment and Plan Assessment Anesthesia Assessment: Anesthesia Plan Discussed Final Anesthetic Review Family History of Problems with Anesthesia: Yes History of Problems with Anesthesia: Yes (Ponv ) NPO: Yes ASA Class: II Final Preanesthetic Review: Meds/Allgs Chart Reviewed, Consent Obtained/Reviewed and Anes Risks/Benef Reviewed Patient Risk: Intermediate Procedure Risk: Intermediate Anesthetic Plan Anesthetic Plan: GA Disposition: Standard PACU
[2022-06-11] VITALS (7 sets, daily range): BP systolic 98–119; BP diastolic 55–68; PULSE 57–71; RESP 16–18; TEMP 36.1–36.3; O2SAT 98–100; BMI 24.7
[2022-06-11] MEDS: Lactated Ringers 1,000 ML 100 ML IVCONT (09:09)
--- NOTE | 2022-06-11 12:17 | W.PM.OPN ---
Operative Note Operative Note Date of Service: 06/11/22 Narrative: PREOP DIAGNOSIS: INTERSTITIAL CYSTITIS POSTOP DIAGNOSIS: INTERSTITIAL CYSTITIS PROCEDURE: CYSTOSCOPY HYDRODISTENTION Anesthesia: General Indications: 51-year-old female with a history of GERD, generalized anxiety disorder, IBS and chronic constipation, ? She is a nonsmoker having quit 14 years ago.? She is followed for chronic interstitial cystitis with symptoms of bladder pressure and urgency.? Negative Renal ultrasound completed on 05/09 showed no hydronephrosis and no renal calculi bilaterally. Details of procedure: The patient was brought into the operating room placed on the OR table in supine position. 2 g of Ancef IV. General anesthesia was administered. The patient was repositioned into lithotomy position, prepped and draped in the usual sterile fashion. Time-out was done per protocol. A 22 fr cystoscope was placed transurethrally into the bladder. Urine was drained from the bladder measuring 150 mL.The right and left ureteral orifices were visualized. The entire bladder was visualized. There were no suspicious bladder lesions seen. There were mild trabeculations noted. The bladder was filled with sterile water at 80 cm of water pressure under gravity. The bladder was distended for 2 minutes. Bladder capacity measured 700 mL. Revisualization of the bladder, noted mild glomerulations. No Nando ulcerations. The bladder was refilled with sterile water again at 80 cm of water pressure under gravity. The bladder was distended for 3 minutes. The fluid was drained from the bladder and measured 850 mL. The cystoscope was removed. 2% lidocaine urojet was passed transurethrally, Solution of (1% lidocaine plain, 15 mL, 0.5 % Marcaine 15 mL mixed with 30, 000 units of heparin concentration 5000 units per mL total of 6 mL hepaine) instilled transurethrally into the bladder. The patient was brought out of anesthesia and taken to recovery in stable condition. Complications: None Drains: none
[2022-06-11] MEDS: Phenazopyridine HCL 100 MG TABLET PO (12:42)
== END 2022-06-11 14:10 | disposition home or self-care (01) ==
PROVIDERS: PCP Internal Medicine; Visit Provider Urology
PROC: 0T7B7ZZ Dilation of Bladder, Via Natural or Artificial Opening (ICD-10-PCS; CPT 52260; principal; 2022-06-11 10:00)
DX: N30.10 Interstitial cystitis (chronic) without hematuria (principal); N32.89 Other specified disorders of bladder; R39.15 Urgency of urination; R32 Unspecified urinary incontinence; K21.9 Gastro-esophageal reflux disease without esophagitis; R73.02 Impaired glucose tolerance (oral); E55.9 Vitamin D deficiency, unspecified; F41.1 Generalized anxiety disorder; K58.9 Irritable bowel syndrome, unspecified; K59.09 Other constipation; U09.9 Post COVID-19 condition, unspecified; Z79.899 Other long term (current) drug therapy; Z88.2 Allergy status to sulfonamides; Z88.8 Allergy status to other drugs, medicaments and biological substances; Z91.040 Latex allergy status; Z87.891 Personal history of nicotine dependence
CPT/HCPCS: 52260; J0690; J2250; J2795; J3010

== ENCOUNTER 2022-06-18 08:46 | Outpatient (REF) | payer OTHER, SELFPAY ==
--- NOTE | ~2022-06-18 | US_ITS ---
EXAMINATION: US ABDOMEN COMPLETE CLINICAL INFORMATION: Unspecified abdominal pain. COMPARISON: Renal ultrasound 05/09/2022. CT abdomen and pelvis 11/28/2021. Ultrasound abdomen complete 08/23/2021. TECHNIQUE: Real-time imaging of the abdominal viscera. FINDINGS: PANCREAS: Normal. ABDOMINAL AORTA: The proximal, mid, and distal segments are normal in caliber. INFERIOR VENA CAVA: Visualized portions are normal. LIVER: Normal. The liver is normal in size. The liver contour is normal. Parenchymal echogenicity is normal. No focal hepatic lesion. There is no intrahepatic biliary duct dilatation seen. GALLBLADDER: Gallbladder wall thickness is 0.21 cm. The gallbladder is physiologically distended without evidence of stones, sludge, polyps, wall thickening or pericholecystic fluid. COMMON BILE DUCT: Normal in caliber measuring 0.3 cm in diameter. RIGHT KIDNEY: Normal. No hydronephrosis. No renal calculi or focal parenchymal lesions. The kidney measures 11.0 cm in maximum dimension. LEFT KIDNEY: Normal. No hydronephrosis. No renal calculi or focal parenchymal lesions. The kidney measures 11.5 cm in maximum dimension. SPLEEN: Normal. The spleen measures 9.6 cm in maximum dimension. FREE FLUID: None. US/US abdomen complete IMPRESSION: Unremarkable complete abdomen ultrasound.
== END 2022-06-18 08:47 | disposition home or self-care (01) ==
LOC: HO.HMGCX 08:46
PROVIDERS: PCP Internal Medicine; Visit Provider Internal Medicine
DX: R10.9 Unspecified abdominal pain (principal)
CPT/HCPCS: 76700

== ENCOUNTER 2022-06-19 13:11 | Outpatient (REF) | payer OTHER, SELFPAY ==
--- NOTE | ~2022-06-19 | MM_ITS ---
EXAMINATION: MM SCREENING DIGITAL BREAST TOMOSYNTHESIS, BILATERAL CLINICAL INFORMATION: Screening. Asymptomatic. The lifetime risk of breast cancer based on the Tyrer-Cuzick Model is 7%. COMPARISON: Mammography: 05/30/2021, 05/22/2020, 05/18/2019, 11/12/2018, 05/04/2018 TECHNIQUE: Digital breast tomosynthesis is performed in both the craniocaudal and mediolateral oblique views along with computer-aided detection (CAD). Synthesized 2D images are generated from the tomosynthesis. FINDINGS: There are scattered areas of fibroglandular density (ACR BI-RADS breast composition Category b). There are no significant masses, abnormal calcifications, or other abnormalities. There are scattered minor bilateral asymmetries. No developing density. No architectural abnormality. The axilla are unremarkable. Skin contours are smooth. MM/MM tomosynthesis screening BI IMPRESSION: No mammographic evidence of malignancy. ASSESSMENT: BI-RADS 2: Benign RECOMMENDATION: Routine annual mammography screening. This patient's information was entered into a reminder system with a target due date for their next mammogram.
== END 2022-06-19 13:12 | disposition home or self-care (01) ==
LOC: HO.MAMMO 13:11
PROVIDERS: PCP Internal Medicine; Visit Provider Internal Medicine
DX: Z12.31 Encounter for screening mammogram for malignant neoplasm of breast (principal)
CPT/HCPCS: 77063; 77067

== ENCOUNTER → 2022-06-27 14:21 | Outpatient (BNVA) | payer OTHER, SELFPAY | PROVIDERS: PCP Internal Medicine; Visit Provider Urology | DX: N30.10 Interstitial cystitis (chronic) without hematuria (principal); R39.15 Urgency of urination; R32 Unspecified urinary incontinence | CPT/HCPCS: 99212 ==

== ENCOUNTER → 2022-07-09 07:41 | Outpatient (REF) | payer OTHER, SELFPAY ==
--- NOTE | ~2022-07-09 | NM_ITS ---
EXAMINATION: WI RADIONUCLIDE SOLID FOOD GASTRIC EMPTYING 4-HOUR STUDY CLINICAL INFORMATION: Functional dyspepsia. GERD. Nausea and abdominal pain. COMPARISON: None TECHNIQUE: A standard meal consisting of 4 oz of Egg Beaters brand tagged with 1000 microcuries Tc-99m Sulfur Colloid, 8 oz water and 2 slices of toast with jelly was administered orally to the patient. Images were obtained using a dual head gamma camera in the anterior and posterior projections over of the stomach immediately post ingestion and at hourly intervals up to 4 hours post ingestion. The anterior and posterior counts at each time interval were averaged using the geometric mean and expressed as percentage of the immediate post ingestion counts. FINDINGS: There is good visualization of activity in the stomach immediately post ingestion. As the study progresses, there is good clearance of activity from the stomach and visualization of progressively increasing small bowel activity. By the end of the study, there is almost no retention noted in the stomach. Retention in the stomach at each time interval was: 1 hour 84% (normal 37%-90%) 2 hours 37% (normal 30%-60%) 3 hours 2% 4 hours 2% (normal 0%-10%) WI/WI gastric emptying study IMPRESSION: Normal 4-hour solid food gastric emptying study.
== END ==
LOC: HO.NUCMED 07:41
PROVIDERS: Visit Provider Nurse Practitioner
DX: K30 Functional dyspepsia (principal)
CPT/HCPCS: 78264; A9541

== ENCOUNTER 2022-07-10 11:10 | Outpatient (REF) | payer OTHER, SELFPAY ==
--- NOTE | ~2022-07-10 | US_ITS ---
EXAMINATION: US THYROID CLINICAL INFORMATION: Nontoxic multinodular goiter. COMPARISON: Thyroid ultrasound 06/01/2021 and 04/13/2020. TECHNIQUE: Linear transducer grayscale and color Doppler examination with attention to the region of the thyroid. FINDINGS: SIZE: Measurements of the thyroid lobes and nodules are given in sagittal, anteroposterior and transverse dimensions respectively. Right Thyroid Lobe: 5.3 x 1.7 x 1.9 cm, volume 9.4 mL. Previously 5.1 x 1.9 x 2.2 cm, volume 11.0 mL. Parenchyma: The gland echotexture is homogeneous. Thyroid vascularity is normal. Left Thyroid Lobe: 5.2 x 1.8 x 1.8 cm, volume 9.2 mL. Previously 4.8 x 1.6 x 1.8 cm, volume 6.9 mL. Parenchyma: The gland echotexture is homogeneous. Thyroid vascularity is normal. Isthmus: 0.3 cm in maximum AP dimension. Previously 0.3 cm. Estimated total number of nodules greater than or equal to 1 cm: 0. Embossing Machine Tender nodules are described as follows: 1. Location: Right upper pole. Size: 0.2 x 0.2 x 0.2 cm, volume 0.005 mL. Previously: Not seen previously. Nodule characteristics: Composition: Cystic(0). ACR TI-RADS total points: 0 ACR TI-RADS category: 1 2. Location: Right mid pole. Size: 0.5 x 0.3 x 0.5 cm, volume 0.04 mL. Previously: 0.4 x 0.3 x 0.5 cm, volume 0.03 mL. Nodule characteristics: Composition: Spongiform (0). ACR TI-RADS total points: 0 Previous: 4 ACR TI-RADS category: 1 Previous: 4 Significant change in size (>/= 20% in 2 dimensions and minimal increase of 2 mm or 50% or greater increase in volume): No Change in features: No Change in ACR TI-RADS risk category: Yes 3. Location: Right lower pole. Size: 0.5 x 0.5 x 0.7 cm, volume 0.09 mL. Previously: Not seen previously. Nodule characteristics: Composition: Spongiform (0). ACR TI-RADS total points: 0 ACR TI-RADS category: 1 4. Location: Right lower pole. Size: 0.6 x 0.4 x 0.5 cm, volume 0.05 mL. Previously: 0.5 x 0.3 x 0.4 cm, volume 0.03 mL. Nodule characteristics: Composition: Spongiform (0). ACR TI-RADS total points: 0 Previous: 4 ACR TI-RADS category: 1 Previous: 4 Significant change in size (>/= 20% in 2 dimensions and minimal increase of 2 mm or 50% or greater increase in volume): Yes Change in features: No Change in ACR TI-RADS risk category: Yes 5. Location: Left mid pole. Size: 0.7 x 0.5 x 0.8 cm, volume 0.14 mL. Previously: 0.7 x 0.4 x 0.9 cm, volume 0.13 mL. Nodule characteristics: Composition: Cystic(0). ACR TI-RADS total points: 0 Previous: 3 ACR TI-RADS category: 1 Previous: 3 Significant change in size (>/= 20% in 2 dimensions and minimal increase of 2 mm or 50% or greater increase in volume): No Change in features: No Change in ACR TI-RADS risk category: Yes NODES: No lymphadenopathy is seen in the tissue surrounding the thyroid gland. US/US thyroid IMPRESSION: Bilateral subcentimeter benign-appearing nodules and cysts. No FNA or follow up by criteria. ACR TI-RADS RECOMMENDATION REFERENCE: * TR1 (0 point) and TR 2 (2 points): No FNA or follow up
== END 2022-07-10 11:11 | disposition home or self-care (01) ==
LOC: HO.HMGCX 11:10
PROVIDERS: PCP Internal Medicine; Visit Provider Nurse Practitioner Family
DX: E04.2 Nontoxic multinodular goiter (principal)
CPT/HCPCS: 76536

== ENCOUNTER → 2022-07-17 13:13 | Outpatient (BNVA) | payer OTHER, SELFPAY | PROVIDERS: PCP Internal Medicine; Visit Provider Nurse Practitioner | DX: K30 Functional dyspepsia (principal); R10.9 Unspecified abdominal pain; K59.04 Chronic idiopathic constipation; K21.9 Gastro-esophageal reflux disease without esophagitis; K22.10 Ulcer of esophagus without bleeding; N30.11 Interstitial cystitis (chronic) with hematuria; Z79.899 Other long term (current) drug therapy | CPT/HCPCS: 99212 ==

== ENCOUNTER 2022-08-01 07:13 | Outpatient (REF) | payer OTHER, SELFPAY ==
[2022-08-01 08:10] LABS: Alanine Aminotransferase 18 U/L (0-31); Albumin Level 4.4 g/dL (3.5-5.0); Alkaline Phosphatase 77 U/L (39-117); Anion Gap 12 (12-20); Aspartate Amino Transferase 17 U/L (5-31); Bilirubin Total 0.3 mg/dL (0.0-1.0); Blood Urea Nitrogen 17 mg/dL (9-16); Calcium 9.7 mg/dL (8.4-10.2); Carbon Dioxide 26 mmol/L (22-29); Chloride 107 mmol/L (96-108); Cholesterol 251 mg/dL; Estimated Glomerular Filt Rate > 60; Glucose Random 105 mg/dL (60-115); HDL Cholesterol 60 mg/dL; LDL Cholesterol Calculated 150 mg/dl; Potassium 4.3 mmol/L (3.3-5.1); Sodium 141 mmol/L (135-145); Total Protein 7.3 g/dL (6.5-8.0); Triglycerides 208 mg/dL
[2022-08-01 08:14] LABS: Appearance Urine Clear; Color Urine Yellow; Glucose Urine UA Negative (Negative); Leukocyte Esterase Urine Small (1+) (Negative); Nitrite Urine Negative (Negative); UMIC TRIGGER UACC YES; Urine Blood Small (1+) (Negative); Urine Ketones Negative (Negative); Urine Protein Negative (Neg-Trace)
[2022-08-01 09:15] LABS: Bacteria Urine None Seen (None Seen); Hyaline Casts Urine 0-2 /LPF (0-2); Squamous Epithelial Cell Urine 0-2 /HPF (0-2); UACC Culture Trigger YES; WBC Urine 0-5 /HPF (0-5)
== END 2022-08-01 07:14 | disposition home or self-care (01) ==
LOC: HO.LAB 07:13
PROVIDERS: PCP Internal Medicine; Visit Provider Internal Medicine
DX: E78.00 Pure hypercholesterolemia, unspecified (principal); N30.10 Interstitial cystitis (chronic) without hematuria
CPT/HCPCS: 36415; 80053; 80061; 81001; 87086

== ENCOUNTER → 2022-09-04 13:23 | Outpatient (BNVA) | payer OTHER, SELFPAY | PROVIDERS: PCP Internal Medicine; Referring Provider Internal Medicine; Visit Provider Nurse Practitioner | DX: Z01.818 Encounter for other preprocedural examination (principal); K30 Functional dyspepsia; K59.04 Chronic idiopathic constipation; K21.9 Gastro-esophageal reflux disease without esophagitis; D12.6 Benign neoplasm of colon, unspecified | CPT/HCPCS: 99212 ==

== ENCOUNTER → 2022-09-30 14:17 | Outpatient (BNVA) | payer OTHER, SELFPAY | PROVIDERS: PCP Internal Medicine; Visit Provider Urology | DX: N30.10 Interstitial cystitis (chronic) without hematuria (principal); R39.15 Urgency of urination; R32 Unspecified urinary incontinence | CPT/HCPCS: 51798; 99212 ==

== ENCOUNTER → 2022-11-05 12:54 | Outpatient (BNVA) | payer OTHER, SELFPAY | PROVIDERS: PCP Internal Medicine; Visit Provider Psychiatry & Neurology Neurology | DX: M54.2 Cervicalgia (principal); R42 Dizziness and giddiness; G43.909 Migraine, unspecified, not intractable, without status migrainosus | CPT/HCPCS: 99202 ==

== ENCOUNTER → 2023-01-06 12:37 | Outpatient (BNVA) | payer OTHER, SELFPAY | PROVIDERS: PCP Internal Medicine; Visit Provider Nurse Practitioner Family | DX: M54.2 Cervicalgia (principal); R42 Dizziness and giddiness; G43.909 Migraine, unspecified, not intractable, without status migrainosus; R40.0 Somnolence; R06.83 Snoring | CPT/HCPCS: 99212 ==

== ENCOUNTER 2023-01-14 14:00 | Outpatient (RCR) | payer OTHER, SELFPAY ==
--- NOTE | 2022-12-06 16:34 | MHC.PT.EP ---
[facility] [place] Office [place] Office [place] Office [address] [place] Dewitt [address] [phone] F: [phone] F: [phone] F: [phone] F: [phone] Physical Therapy Plan of Care Date of Evaluation: Date of Surgery: NA Diagnosis: CERVICALGIA Assessment: Pt IS 51 YO RHD F REFERRED TO PT FROM DR COTA WITH CERVICALGIA. Pt HAS HAD PT IN PAST FOR SIMILAR ISSUES WITH SOME RELIEF. PRESENTS WITH DECREASED CERV ROM AND DECREASED R SHLDER ROM. C/O PAIN IN NECK AND R SHLDER. SHOULD BENEFIT FROM PT TO HELP IMPROVE CERV/R SHLDER ROM AND UPPER BODY STRENGTH Frequency and Duration: The patient will be seen 2X/WK X 4 WKS Short Term Goals: 1. INCREASED POSTURE AWARENESS AND AWARENESS NECK/SHOULDER PAIN 2. IMPROVED R SHLDER FLEX AND ABD 20-30 DEGREES 3. DECREASED C/O SARABIA Bundle Tier Goals: 1. I HEP 2. DECREASED NECK PAIN AT LEAST 50% WITH ADLS 3. INCREASED USE R UE FOR ADLS Treatment Plan: Modalities to reduce pain, spasms and effusion. Manual therapy to restore motion and function. Therapeutic exercise to improve strength and flexibility. Neuromuscular re-education for posture and balance. Therapeutic activities to return to functional activities of daily living. Electronically signed by: SUE ESQUIVEL PT Please sign and return to therapist. Thank you for your referral.
--- NOTE | 2023-02-18 16:16 | MHC.PT.DC ---
[facility] [place] [facility] [place] [facility] [place] [facility] [address] Fransisco Dewitt [address] [phone] F: [phone] F: [phone] F: [phone] F: [phone] Physical Therapy Discharge Report Diagnosis: CERVICALGIA Date of Surgery: NA Date of Evaluation: 12/06/22 Date of Discharge: 02/18/23 Treatments to Date: 10 Cancellations to Date: No Shows to Date: Discharge Status: Independent with HEP Discharge Summary: Pt WITH LIMITED IMPROVEMENT AFTER 10 PT SESSIONS. (DOES REPORT SLIGHT DECREASE IN PAIN/SARABIA) Pt CONTINUES WITH PAIN. REPORTS VARIOUS MEDICAL ISSUES AND AREAS OF PAIN. HAS HOME PROGRAM AND HAS BEEN ED RE POSTURE AND POSSIBLE BENEFIT FROM PSYCHOLOGIST REFERRAL (Pt REPORTS SHE FEELS BETTER TALKING WITH THIS PT..ABOUT [employer]) Electronically signed by: SUE ESQUIVEL PT Please sign and return to therapist. Thank you for your referral.
== END 2023-02-18 16:17 | disposition home or self-care (01) ==
LOC: HO.PT 14:00
PROVIDERS: PCP Internal Medicine; Visit Provider Psychiatry & Neurology Neurology
DX: M54.2 Cervicalgia (principal)
CPT/HCPCS: 97014; 97035; 97110; 97140; 97161

== ENCOUNTER 2023-01-16 07:39 | Outpatient (RCR) | payer OTHER, SELFPAY ==
[2023-01-16 07:50] VITALS: BP 126/56; PULSE 60
--- NOTE | 2023-01-16 11:19 | MHC.PT.EP ---
[facility] [place] Office [place] Office [place] Office [address] [phone] F: [phone] F: [phone] F: [phone] F: [phone] Physical Therapy Plan of Care Date of Evaluation: Date of Surgery: Diagnosis: Vestibular, dizziness and giddiness Assessment: Christelle is a 52 yo female referred to PT for dizziness and giddiness. Dizziness reported when she gets 'anxiety' and 'when I get scared. and lasts minutes to hours but does not happen everyday. Denies room spinning dizziness. Examination shows normal ocular motor, negative VBI, and normal static and dynamic balance. DGI . Pt was negative for positional vertigo in navin-hallpike and roll test. PT not indicated, educated on following up with doctor for other potential causes of dizziness. Also educated pt on pacing d/t possible orthostatic hypotension. Frequency and Duration: The patient will be seen Short Term Goals: Detention Goals: PT not indicated Treatment Plan: Modalities to reduce pain, spasms and effusion. Manual therapy to restore motion and function. Therapeutic exercise to improve strength and flexibility. Neuromuscular re-education for posture and balance. Therapeutic activities to return to functional activities of daily living. Electronically signed by: Noa Bone PT Please sign and return to therapist. Thank you for your referral.
--- NOTE | 2023-01-21 13:30 | MHC.PT.DC ---
[facility] [place] Office [place] Office [place] [facility] [address] [place] Dewitt [address] [phone] F: [phone] F: [phone] F: [phone] F: [phone] Physical Therapy Discharge Report Diagnosis: Vestibular, dizziness and giddiness Date of Surgery: Date of Evaluation: 01/16/23 Date of Discharge: 01/21/23 Treatments to Date: 1 Cancellations to Date: No Shows to Date: Discharge Status: Recommend MD Follow-up Discharge Summary: Christelle is a 52 yo female referred to PT for dizziness and giddiness. Dizziness reported when she gets 'anxiety' and 'when I get scared. and lasts minutes to hours but does not happen everyday. Denies room spinning dizziness. Examination shows normal ocular motor, negative VBI, and normal static and dynamic balance. DGI . Pt was negative for positional vertigo in navin-hallpike and roll test. PT not indicated, educated on following up with doctor for other potential causes of dizziness. Also educated pt on pacing d/t possible orthostatic hypotension. Electronically signed by: Noa Bone PT Please sign and return to therapist. Thank you for your referral.
== END 2023-01-21 13:31 | disposition home or self-care (01) ==
LOC: HO.PT 07:39
PROVIDERS: PCP Internal Medicine; Visit Provider Nurse Practitioner Family
DX: R42 Dizziness and giddiness (principal)
CPT/HCPCS: 97110; 97161

== ENCOUNTER 2023-01-18 09:25 | Outpatient (REF) | payer OTHER, SELFPAY ==
[2023-01-18 09:41] LABS: MANUAL DIFF FLAG NO
[2023-01-18 10:20] LABS: Basophils Percent Auto 0.6 % (0-2); Eosinophils Absolute Auto 0.2 X10*3/uL (0.0-0.4); Eosinophils Percent Auto 2.9 % (0-4); Hematocrit 41.7 % (37.0-47.0); Hemoglobin 13.9 g/dl (12.0-16.0); Imm Gran Abs Auto 0.01 X10*3/uL (0.00-0.03); Imm Gran Pct Auto 0.2 % (0.0-0.4); Lymphocytes Absolute Auto 2.6 X10*3/uL (1.2-4.9); Lymphocytes Percent Auto 42.3 % (20-40); Mean Corpuscular HGB Conc 33.3 g/dl (31.0-35.0); Mean Corpuscular Volume 87.1 fL (80.0-98.0); Mean Platelet Volume 10.5 fL (9.4-12.3); Monocytes Absolute Auto 0.4 X10*3/uL (0.1-1.2); Monocytes Percent Auto 5.7 % (2-11); Neutrophils Percent Auto 48.3 % (45-73); Platelet Count 289 X10*3/uL (160-400); Red Blood Count 4.79 X10*6/uL (4.20-5.50); Red Cell Distribution Width 12.4 % (11.0-16.0); White Blood Count 6.2 X10*3/uL (4.8-10.8)
[2023-01-18 10:41] LABS: Appearance Urine Clear; Color Urine Yellow; Glucose Urine UA Negative (Negative); Leukocyte Esterase Urine Small (1+) (Negative); Nitrite Urine Negative (Negative); PH 6.5 (5.0-9.0); Specific Gravity - Urine 1.015 (1.005-1.025); UMIC TRIGGER UA YES; Urine Blood Small (1+) (Negative); Urine Ketones Negative (Negative); Urine Protein Negative (Neg-Trace)
[2023-01-18 10:43] LABS: Bacteria Urine None Seen (None Seen); Estimated Average Glucose 108 mg/dL; Hemoglobin A1c % 5.4 %; Hyaline Casts Urine 0-2 /LPF (0-2); Squamous Epithelial Cell Urine 0-2 /HPF (0-2)
[2023-01-18 10:55] LABS: Alanine Aminotransferase 23 U/L (0-31); Alkaline Phosphatase 86 U/L (39-117); Anion Gap 12 (12-20); Aspartate Amino Transferase 19 U/L (5-31); Bilirubin Total 0.7 mg/dL (0.0-1.0); Blood Urea Nitrogen 15 mg/dL (9-16); Carbon Dioxide 27 mmol/L (22-29); Chloride 107 mmol/L (96-108); Cholesterol 289 mg/dL; Estimated Glomerular Filt Rate > 60; Glucose Random 95 mg/dL (60-115); HDL Cholesterol 47 mg/dL; LDL Cholesterol Calculated 182 mg/dl; Potassium 4.2 mmol/L (3.3-5.1); Sodium 142 mmol/L (135-145); Triglycerides 300 mg/dL
[2023-01-18 11:04] LABS: Free T4 (Free Thyroxine) 0.96 ng/dL (0.71-1.85); Thyroid Stimulating Hormone 1.43 uIU/mL (0.32-4.0); Vitamin D 25-OH Total 34.3 ng/mL (>30)
[2023-01-18 11:14] LABS: Folate 13.7 ng/mL (> or = 4.0); Vitamin B12 456 pg/mL (200-900)
== END 2023-01-18 09:26 | disposition home or self-care (01) ==
LOC: HO.LAB 09:25
PROVIDERS: PCP Internal Medicine; Visit Provider Internal Medicine
DX: E04.2 Nontoxic multinodular goiter (principal); R73.02 Impaired glucose tolerance (oral); E78.00 Pure hypercholesterolemia, unspecified
CPT/HCPCS: 36415; 80053; 80061; 81001; 82306; 82607; 82746; 83036; 83735; 84439; 84443; 85025

== ENCOUNTER 2023-01-19 10:42 | Emergency (ER) | payer OTHER, SELFPAY ==
--- NOTE | 2023-01-19 | ECG_ITS ---
Test Reason : CP Blood Pressure : / mmHG Vent. Rate : 086 BPM Atrial Rate : 086 BPM P-R Int : 162 ms QRS Dur : 084 ms QT Int : 388 ms P-R-T Axes : 060 041 048 degrees QTc Int : 464 ms Normal sinus rhythm Low voltage QRS Borderline ECG When compared with ECG of 29-MAY-2022 08:28, No significant change was found Referred By: Quinton Nathan Electronically Signed By:MISAEL SOLORZANO
--- NOTE | ~2023-01-19 | XR_ITS ---
EXAMINATION: XR CHEST CLINICAL INFORMATION: Chest pain. COMPARISON: Most recent chest radiograph dated 11/26/2021. TECHNIQUE: 2 views of the chest were obtained. FINDINGS: The lungs are clear. The cardiomediastinal silhouette is normal in size. There is no pleural effusion or pneumothorax. No acute osseous abnormality. XR/XR chest 2V IMPRESSION: No acute cardiopulmonary findings.
[2023-01-19 10:43] VITALS: BP 131/76; PULSE 98; RESP 14; TEMP 36.9; O2SAT 96; BMI 25.6
[2023-01-19 11:11] LABS: Appearance Urine Clear; Color Urine Yellow; Glucose Urine UA Negative (Negative); Leukocyte Esterase Urine Negative (Negative); Nitrite Urine Negative (Negative); PH 7.5 (5.0-9.0); Specific Gravity - Urine <= 1.005 (1.005-1.025); UMIC TRIGGER UACC YES; Urine Blood Small (1+) (Negative); Urine Ketones Negative (Negative); Urine Protein Negative (Neg-Trace)
[2023-01-19 11:26] LABS: Bacteria Urine None Seen (None Seen); Hyaline Casts Urine 0-2 /LPF (0-2); Squamous Epithelial Cell Urine 0-2 /HPF (0-2); WBC Urine 0-5 /HPF (0-5)
[2023-01-19 12:05] LABS: MANUAL DIFF FLAG NO
[2023-01-19 12:10] LABS: Basophils Percent Auto 0.5 % (0-2); Eosinophils Absolute Auto 0.1 X10*3/uL (0.0-0.4); Eosinophils Percent Auto 1.9 % (0-4); Hemoglobin 13.9 g/dl (12.0-16.0); Imm Gran Abs Auto 0.02 X10*3/uL (0.00-0.03); Imm Gran Pct Auto 0.3 % (0.0-0.4); Lymphocytes Absolute Auto 2.2 X10*3/uL (1.2-4.9); Lymphocytes Percent Auto 30.4 % (20-40); Mean Corpuscular HGB Conc 33.1 g/dl (31.0-35.0); Mean Corpuscular Hemoglobin 28.2 pg (27.0-33.0); Mean Corpuscular Volume 85.2 fL (80.0-98.0); Monocytes Absolute Auto 0.4 X10*3/uL (0.1-1.2); Monocytes Percent Auto 5.4 % (2-11); Neutrophils Absolute Auto 4.5 x10*3/uL (2.0-8.3); Neutrophils Percent Auto 61.5 % (45-73); Platelet Count 280 X10*3/uL (160-400); Red Blood Count 4.93 X10*6/uL (4.20-5.50); Red Cell Distribution Width 12.3 % (11.0-16.0); White Blood Count 7.3 X10*3/uL (4.8-10.8)
[2023-01-19 12:17] LABS: INTERNATIONAL NORM RATIO 0.9 (0.9-1.1); Prothrombin Time 10.3 SEC (10.0-13.1)
[2023-01-19 12:21] LABS: Alanine Aminotransferase 24 U/L (0-31); Albumin Level 4.3 g/dL (3.5-5.0); Alkaline Phosphatase 95 U/L (39-117); Anion Gap 13 (12-20); Aspartate Amino Transferase 22 U/L (5-31); Bilirubin Total 0.5 mg/dL (0.0-1.0); Blood Urea Nitrogen 11 mg/dL (9-16); Calcium 10.2 mg/dL (8.4-10.2); Carbon Dioxide 26 mmol/L (22-29); Chloride 107 mmol/L (96-108); Creatinine Clr Calc Pharmacy 92.5; Estimated Glomerular Filt Rate > 60; Glucose Random 101 mg/dL (60-115); Lipase 69 U/L (8-78); Potassium 4.1 mmol/L (3.3-5.1); Sodium 142 mmol/L (135-145); Total Protein 7.4 g/dL (6.5-8.0)
[2023-01-19 12:30] LABS: Troponin-I High Sensitivity < 2.7 ng/L (<3.5-17.0)
[2023-01-19 12:44] LABS: HCG Quantitative < 2 mIU/mL
--- NOTE | 2023-01-19 14:56 | ED_ITS ---
HPI - General Adult General Chief complaint: Abdominal Pain Stated complaint: dizziness, chest palpitations Time Seen by Provider: 01/19/23 13:40 History of Present Illness HPI narrative: patient complains of an episode of palpitations while she was in denominational where was high at where she felt lightheaded briefly but never felt like she would faint or pass out, she never had chest pain or shortness of breath today no vomiting No exertional component She also complains of chronic abdominal pain unchanged which intermittently flares up she did have some pain earlier but now the pain is gone, she denies nausea vomiting or diarrhea she has no dysuria she denies any fever chills, she has no back pain today Related Data Home Medications Medication Instructions Recorded Confirmed multivitamin 1 tab PO DAILY 11/16/20 08/29/22 sertraline 25 mg tablet 25 mg PO DAILY PRN 12/31/21 08/29/22 Previous Rx's Medication Instructions Recorded atorvastatin 10 mg tablet 10 mg PO DAILY #90 tabs 04/17/22 blood pressure monitor (Blood #1 ea 04/18/22 Pressure Kit) fenofibrate 160 mg tablet 160 mg PO DAILY #90 tabs 04/18/22 fluticasone propionate 50 2 spray intranasal DAILY PRN 07/03/22 mcg/actuation nasal allergy symptoms #16 mL spray,suspension pantoprazole 40 mg tablet,delayed 40 mg PO DAILY #90 tabs 07/17/22 release simethicone 80 mg chewable tablet 80 mg PO TID-QID PRN abdominal 07/17/22 (Gas Relief (simethicone)) distention 30 days #120 tabs linaclotide 72 mcg capsule 72 mcg PO QAM #30 caps 08/06/22 (Linzess) sodium sul 1.479 gram-potas ch See Rx Instructions PO PER PKG DIR 10/02/22 0.188 gram-magnes sul 0.225 gram #30 tabs tablet (Sutab) baclofen 5 mg tablet 5 mg PO BEDTIME #30 tabs 11/05/22 magnesium oxide 400 mg PO BEDTIME 30 days #30 tabs 01/06/23 cetirizine 10 mg tablet 10 mg PO DAILY #90 tabs 01/09/23 cholecalciferol (vitamin D3) 50 50 mcg PO DAILY #90 tabs 01/09/23 mcg (2,000 unit) tablet ondansetron 4 mg disintegrating 4 mg PO Q8H 4 days #20 tabs 01/09/23 tablet nitrofurantoin macrocrystal 100 mg 100 mg PO BID 5 days #10 caps 01/14/23 capsule phenazopyridine 100 mg tablet 200 mg PO TID PRN pain 2 days #12 01/14/23 (Pyridium) tabs Allergies Allergy/AdvReac Type Severity Reaction Status Date / Time latex [Latex] Allergy Mild SWELLING/IT Verified 01/14/23 08:18 ROSSANA Sulfa (Sulfonamide Allergy Mild SWELLING/ITCHING, Verified 01/14/23 08:18 Antibiotics) pruritis sulfamethoxazole Allergy Unknown ITCHY/HIVES Verified 01/14/23 08:18 [From BACTRIM] trimethoprim [From BACTRIM] Allergy Unknown ITCHY/HIVES Verified 01/14/23 08:18 metoclopramide [From REGLAN] AdvReac Unknown AGITATION Verified 01/14/23 08:18 [facility] Past Medical History Source: nursing notes reviewed Medical History Abdominal cramping Acute conjunctivitis of left eye Allergic conjunctivitis Anxiety Benign hematuria Bilateral lower extremity pain Cervical disc herniation Cervicalgia Chronic cough COVID-19 COVID-19 long hauler Diarrhea Erosive esophagitis Frequency of micturition Frequency of micturition GERD (gastroesophageal reflux disease) Hearing deficit Heart palpitations Hematuria Hemorrhoids Hypercholesterolemia Impaired glucose tolerance Interstitial cystitis Irritable bowel syndrome Lateral meniscal tear Migraine Migraine Multiple thyroid nodules Myalgia Nephrolithiasis Palpitations Post-vaccination reaction Restrictive lung disease Scalp cyst Suprapubic pain Toe pain, right Toe swelling Upper abdominal pain Vaginal itching Vaginal spotting Vertigo Vitamin B12 deficiency Vitamin D deficiency Wound of right leg Surgical History H/O esophagogastroduodenoscopy History of lumpectomy of left breast Hx of colonoscopy Hx of tubal ligation S/P excision of lipoma Family History Family History Father Skin cancer Mother Skin cancer High blood pressure Heart problem CVA (cerebral vascular accident) Maternal Grandfather Skin cancer Cancer FH: prostate cancer Brother Schizophrenia Other Mental health problem Social History Social History Household Members: None Housing: Apartment Alcohol intake: never Patient Tobacco Use Status: Former Tobacco user Tobacco use type: Cigarette Smoked in Last 30 Days: No e-Cigarette/Vaping Use: Never Used Second Hand Smoke Exposure: No Use of substances other than those prescribed or required for medical reasons: No Advance Directives: No Advance Directives Information Provided: Yes service: No Current occupational status: employed 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 Cognitive needs: No Hearing needs: No Vision needs: No Physical Exam ED Vital Signs: Vital Signs - 24 hr 01/19/23 10:43 Temperature 98.5 F Pulse Rate 98 Respiratory Rate 14 Blood Pressure 131/76 Pulse Oximetry 96 Oxygen Delivery Method Room Air BMI result Body Mass Index 25.6 general appearance is no distress Eyes anicteric no pallor Pharynx is clear no redness swelling or exudate mucous membranes moist, voice normal Neck s suppl chest is clear to auscultation bilateral, no chest wall tenderness Heart no murmur Abdomen soft nontender no rebound no guarding The back no CVA tenderness Extremities full range of motion x4 without edema Skin no rash Neuro cranial nerves 2-12 intact as tested, gait and balance are normal, interaction comprehension and expression are normal, motor is 5/5 x4, sensation intact and symmetrical Course Course Course Narrative: patient with main complaint of an episode of palpitations and heart racing and feeling dizzy while she was in denominational work conditions were high, this resolved on its own, never had chest pain or shortness of breath, never felt faint or fainted Nurse's note stated that she had some chest pain but patient denies this, but she does state that over recent months she occasionally does get chest pain but had no chest pain today EKG was normal sinus rhythm at a rate of 86, no acute ST or ischemic changes, [place] interval is normal, chest x-ray was normal, troponin was under 2.7, patient never had chest pain or shortness of breath, symptoms were not exertional, very unlikely to be myocardial infarction CBC and chemistry were otherwise unremarkable Urinalysis did not show infection, nitrite negative, no bacteria, leuk esterase negative Patient's other complaint of chronic abdominal pain unchanged for many many months, her abdominal exam was soft nontender and exam was repeated prior to discharge, she had no abdominal pain at that point and was eating and hungry so no evidence of any abdominal emergency today Well-appearing patient is advised to follow closely with primary doctor for further evaluation of her intermittent chest pain and palpitations and she is discharged ambulating easily in no discomfort Medical Decision Making Lab Data MDM Lab Attestation statement: I reviewed the patient's lab results. 01/19/23 12:01 01/19/23 12:01 Labs: Lab Results 01/19/23 01/19/23 01/19/23 Range/Units 11:04 12:01 12:01 WBC 7.3 (4.8-10.8) X10*3/uL RBC 4.93 (4.20-5.50) X10*6/uL Hgb 13.9 (12.0-16.0) g/dl Hct 42.0 (37.0-47.0) % MCV 85.2 (80.0-98.0) fL MCH 28.2 (27.0-33.0) pg MCHC 33.1 (31.0-35.0) g/dl RDW 12.3 (11.0-16.0) % Plt Count 280 (160-400) X10*3/uL MPV 10.0 (9.4-12.3) fL Immature Gran % (Auto) 0.3 (0.0-0.4) % Neut % (Auto) 61.5 (45-73) % Lymph % (Auto) 30.4 (20-40) % [place] % (Auto) 5.4 (2-11) % Eos % (Auto) 1.9 (0-4) % Baso % (Auto) 0.5 (0-2) % Lymph # (Auto) 2.2 (1.2-4.9) X10*3/uL [place] # (Auto) 0.4 (0.1-1.2) X10*3/uL Eos # (Auto) 0.1 (0.0-0.4) X10*3/uL Baso # (Auto) 0.0 (0.0-0.2) X10*3/uL Abs Immat Gran (auto) 0.02 (0.00-0.03) X10*3/uL Absolute Neuts (auto) 4.5 (2.0-8.3) x10*3/uL Absolute Nucleated RBC 0.000 (0.0-0.012) X10*3/uL Nucleated RBC % (auto) 0.0 (0.0-0.2) /100WBC PT (10.0-13.1) SEC INR (0.9-1.1) Sodium 142 (135-145) mmol/L Potassium 4.1 (3.3-5.1) mmol/L Chloride 107 (96-108) mmol/L Carbon Dioxide 26 (22-29) mmol/L Anion Gap 13 (12-20) BUN 11 (9-16) mg/dL Creatinine 0.69 (0.5-1.4) mg/dL Estim Creat Clear Calc 92.5 Estimated GFR > 60 Random Glucose 101 (60-115) mg/dL Calcium 10.2 (8.4-10.2) mg/dL Total Bilirubin 0.5 (0.0-1.0) mg/dL AST 22 (5-31) U/L ALT 24 (0-31) U/L Alkaline Phosphatase 95 (39-117) U/L Troponin I High Sens (<3.5-17.0) ng/L Total Protein 7.4 (6.5-8.0) g/dL Albumin 4.3 (3.5-5.0) g/dL Lipase 69 (8-78) U/L Beta HCG, Quant mIU/mL Urine Color Yellow Urine Appearance Clear Urine pH 7.5 (5.0-9.0) Ur Specific [place] <= 1.005 (1.005-1.025) Urine Protein Negative (Neg-Trace) mg/dL Urine Glucose (UA) Negative (Negative) mg/dL Urine Ketones Negative (Negative) mg/dL Urine Blood Small (1+) H (Negative) Urine Nitrite Negative (Negative) Ur Leukocyte Esterase Negative (Negative) Urine RBC 3-5 H (0-2) /HPF Urine WBC 0-5 (0-5) /HPF Ur Squamous Epith Cells 0-2 (0-2) /HPF Urine Bacteria None Seen (None Seen) Hyaline Casts 0-2 (0-2) /LPF 01/19/23 01/19/23 01/19/23 Range/Units 12:01 12:01 12:01 WBC (4.8-10.8) X10*3/uL RBC (4.20-5.50) X10*6/uL Hgb (12.0-16.0) g/dl Hct (37.0-47.0) % MCV (80.0-98.0) fL MCH (27.0-33.0) pg MCHC (31.0-35.0) g/dl RDW (11.0-16.0) % Plt Count (160-400) X10*3/uL MPV (9.4-12.3) fL Immature Gran % (Auto) (0.0-0.4) % Neut % (Auto) (45-73) % Lymph % (Auto) (20-40) % [place] % (Auto) (2-11) % Eos % (Auto) (0-4) % Baso % (Auto) (0-2) % Lymph # (Auto) (1.2-4.9) X10*3/uL [place] # (Auto) (0.1-1.2) X10*3/uL Eos # (Auto) (0.0-0.4) X10*3/uL Baso # (Auto) (0.0-0.2) X10*3/uL Abs Immat Gran (auto) (0.00-0.03) X10*3/uL Absolute Neuts (auto) (2.0-8.3) x10*3/uL Absolute Nucleated RBC (0.0-0.012) X10*3/uL Nucleated RBC % (auto) (0.0-0.2) /100WBC PT 10.3 (10.0-13.1) SEC INR 0.9 (0.9-1.1) Sodium (135-145) mmol/L Potassium (3.3-5.1) mmol/L Chloride (96-108) mmol/L Carbon Dioxide (22-29) mmol/L Anion Gap (12-20) BUN (9-16) mg/dL Creatinine (0.5-1.4) mg/dL Estim Creat Clear Calc Estimated GFR Random Glucose (60-115) mg/dL Calcium (8.4-10.2) mg/dL Total Bilirubin (0.0-1.0) mg/dL AST (5-31) U/L ALT (0-31) U/L Alkaline Phosphatase (39-117) U/L Troponin I High Sens < 2.7 (<3.5-17.0) ng/L Total Protein (6.5-8.0) g/dL Albumin (3.5-5.0) g/dL Lipase (8-78) U/L Beta HCG, Quant < 2 mIU/mL Urine Color Urine Appearance Urine pH (5.0-9.0) Ur Specific [place] (1.005-1.025) Urine Protein (Neg-Trace) mg/dL Urine Glucose (UA) (Negative) mg/dL Urine Ketones (Negative) mg/dL Urine Blood (Negative) Urine Nitrite (Negative) Ur Leukocyte Esterase (Negative) Urine RBC (0-2) /HPF Urine WBC (0-5) /HPF Ur Squamous Epith Cells (0-2) /HPF Urine Bacteria (None Seen) Hyaline Casts (0-2) /LPF Discharge Plan Discharge Clinical Impression: Palpitations, Abdominal pain Patient Disposition: Home, Self-Care Additional Instructions: your workup today had a normal EKG, a normal troponin test of the heart which did not show any sign of heart attack Chest x-ray was normal EKG was normal No worrisome abnormalities on blood tests or urine The palpitations are concerning so you should follow with primary doctor closely for referral to a slab installer, it is probably a good idea for you to get a Holter monitor so a specialist can evaluate whether not these palpitations are dangerous or serious You should also discuss your intermittent episodes of chest pain with your doctor For the frequent episodes of abdominal pain you can ask for referral to a it application support analyst Today there was no evidence of heart attack or surgical emergency or any other dangerous or emergent concern today Return to the ER any time any worse condition or concerns Prescriptions: No Action atorvastatin 10 mg tablet 10 mg PO DAILY Qty: 90 2RF fenofibrate 160 mg tablet 160 mg PO DAILY Qty: 90 2RF fluticasone propionate 50 mcg/actuation spray,suspension 2 spray intranasal DAILY PRN (Reason: allergy symptoms) Qty: 16 3RF Sutab 1.479-0.188- 0.225 gram tablet See Rx Instructions PO PER PKG DIR Qty: 30 0RF Rx Instructions: PO PER PKG DIR cholecalciferol (vitamin D3) 50 mcg (2,000 unit) tablet 50 mcg PO DAILY Qty: 90 3RF cetirizine 10 mg tablet 10 mg PO DAILY Qty: 90 3RF ondansetron 4 mg tablet,disintegrating 4 mg PO Q8H 4 Days Qty: 20 0RF multivitamin Tablet 1 tab PO DAILY nitrofurantoin macrocrystal 100 mg capsule 100 mg PO BID 5 Days Qty: 10 0RF Rx Instructions: must administer with a meal/food phenazopyridine [Pyridium] 100 mg tablet 200 mg PO TID PRN (Reason: pain) 2 Days Qty: 12 0RF Rx Instructions: Take 2 tabs, three times per day, for up to two days while symptoms persist. (DME) blood pressure monitor [Blood Pressure Kit] Kit See Rx Instructions .ROUTE .MEDSUPPLY Qty: 1 0RF Rx Instructions: As directed Linzess 72 mcg capsule 72 mcg PO QAM Qty: 30 6RF sertraline 25 mg tablet 25 mg PO DAILY PRN baclofen 5 mg tablet 5 mg PO BEDTIME Qty: 30 3RF simethicone [Gas Relief (simethicone)] 80 mg tablet,chewable 80 mg PO TID-QID MDD 6 PRN (Reason: abdominal distention) 30 Days Qty: 120 4RF pantoprazole 40 mg tablet,delayed release (DR/EC) 40 mg PO DAILY Qty: 90 2RF magnesium oxide 400 mg magnesium tablet 400 mg PO BEDTIME 30 Days Qty: 30 1RF
== END 2023-01-19 15:46 | disposition home or self-care (01) ==
PROVIDERS: Nurse Practitioner Family; Emergency Provider Emergency Medicine; PCP Internal Medicine
DX: R42 Dizziness and giddiness (principal); R00.2 Palpitations; R10.30 Lower abdominal pain, unspecified; Z79.899 Other long term (current) drug therapy
CPT/HCPCS: 36415; 71046; 80053; 81001; 83690; 84484; 84702; 85025; 85610; 93005; 99284

== ENCOUNTER → 2023-01-24 13:02 | Outpatient (BNVA) | payer OTHER, SELFPAY | PROVIDERS: PCP Internal Medicine; Visit Provider Nurse Practitioner | DX: K59.04 Chronic idiopathic constipation (principal); K22.10 Ulcer of esophagus without bleeding; K21.9 Gastro-esophageal reflux disease without esophagitis; K58.1 Irritable bowel syndrome with constipation; D12.6 Benign neoplasm of colon, unspecified; R00.0 Tachycardia, unspecified | CPT/HCPCS: 99212 ==

== ENCOUNTER 2023-02-06 14:46 | Outpatient (AMB) | payer OTHER, SELFPAY ==
--- NOTE | 2023-02-06 14:56 | A.OFFPC_ITS ---
Vital Signs 02/06/23 14:57 Height 5 ft 5 in Weight 153 lb BMI 25.5 BP 118/72 Blood Pressure Location Lt brachial Position Sitting Pulse 80 Pulse Source Pulse Oximeter Pulse Oximetry (%) 98 Oxygen Delivery Method Room Air Intake Visit Reasons: Annual Exam Allergies latex [Latex] Allergy (Mild, Verified 02/06/23 14:57) SWELLING/ITCHING Sulfa (Sulfonamide Antibiotics) Allergy (Mild, Verified 02/06/23 14:57) SWELLING/ITCHING, pruritis sulfamethoxazole [From BACTRIM] Allergy (Unknown, Verified 02/06/23 14:57) ITCHY/HIVES trimethoprim [From BACTRIM] Allergy (Unknown, Verified 02/06/23 14:57) ITCHY/HIVES metoclopramide [From REGLAN] Adverse Reaction (Unknown, Verified 02/06/23 14:57) AGITATION Medication List - Last Reconciled 02/06/23 by Gigi Barrow, atorvastatin 10 mg PO DAILY blood pressure monitor (Blood Pressure Kit) As directed cetirizine 10 mg PO DAILY cholecalciferol (vitamin D3) 50 mcg PO DAILY fenofibrate 160 mg PO DAILY fluticasone propionate 50 mcg/actuation 2 sprays intranasal DAILY PRN Lactobacillus acidophilus 100 mg PO DAILY 90 days linaclotide (Linzess) 72 mcg PO QAM magnesium oxide 400 mg PO BEDTIME 30 days multivitamin 1 tab PO DAILY ondansetron 4 mg PO Q8H 4 days pantoprazole 40 mg PO DAILY simethicone (Gas Relief (simethicone)) 80 mg PO TID-QID PRN 30 days MDD 6 Tobacco use date assessed: 01/21/23 Dental Screening Dental Screen Date: 02/06/23 Did you have a dental visit in the last 12 months?: Yes Did you have a dental problem in the last 6 months where you did not have access to dental care?: No Was dental information given to patient?: Patient has dentist HPI Annual Exam HPI Details 52-year-old female with a history of interstitial cystitis chronic idiopathic constipation erosive esophagitis generalized anxiety disorder impaired glucose tolerance hypercholesterolemia last seen in July 2022. Patient is here for physical exam. Mammogram is up-to-date colonoscopy is up-to-date. Patient was recently in the emergency room 01/19/2023 for palpitations, workup has been negative in the ER patient was seen by the neurology for headaches and has been advised that if the headaches persist will need migraine medication. Meanwhile patient was referred for sleep study. Patient follows up with urology status post cysto hydro distension May 2022 and is on Vistaril patient has a hx of neck pain seeing PSS and was rx gabapentin. was in [facility] and all of a sudden had palpitations will be haivng a holter and stress test. has had hearing test mild loss of hearing. chest pain. [facility] Medical History (Updated 02/06/23 @ 15:34 by Gigi Barrow MD) Abdominal cramping Abdominal pain Acute conjunctivitis of left eye Acute pharyngitis Allergic conjunctivitis Benign hematuria Bilateral lower extremity pain Cervical disc herniation Cervicalgia Chronic cough Colitis COVID-19 COVID-19 long hauler Daytime sleepiness Diarrhea Dizziness Dysuria Elevated lipase Erosive esophagitis Frequency of micturition Frequency of micturition GERD (gastroesophageal reflux disease) Hearing deficit Heart palpitations Hematuria Hematuria Hemorrhoids Hypercholesterolemia Impaired glucose tolerance Interstitial cystitis Irritable bowel syndrome Lateral meniscal tear Lightheadedness Migraine Migraine Multiple thyroid nodules Myalgia Nephrolithiasis Pain in both knees Palpitations Post-vaccination reaction Pre-op examination Restrictive lung disease Scalp cyst Snoring Suprapubic pain Tachycardia Toe pain, right Toe swelling Unspecified Eustachian tube disorder, left ear Upper abdominal pain Urgency of micturition Vaginal itching Vaginal spotting Vertigo Vitamin B12 deficiency Vitamin D deficiency Wound of right leg Surgical History H/O esophagogastroduodenoscopy History of lumpectomy of left breast Hx of colonoscopy Hx of tubal ligation S/P excision of lipoma Family History Father Skin cancer Mother Skin cancer High blood pressure Heart problem CVA (cerebral vascular accident) Maternal Grandfather Skin cancer Cancer FH: prostate cancer Brother Schizophrenia Other Mental health problem Social History (Updated 02/06/23 @ 15:21 by Gigi Barrow MD) Household Members: None Housing: Apartment Alcohol intake: never Patient Tobacco Use Status: Former Tobacco user Tobacco use type: Cigarette Years Smoked: quit 2007 e-Cigarette/Vaping Use: Never Used Second Hand Smoke Exposure: No service: No Current occupational status: employed 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 1. Little interest or pleasure in doing things: not at all 2. Feeling down, depressed, or hopeless: not at all 3. Trouble falling or staying asleep, or sleeping too much: not at all 4. Feeling tired or having little energy: not at all 5. Poor appetite or overeating: not at all 6. Feeling bad about yourself - or that you are a failure or have let yourself or your family down: not at all 7. Trouble concentrating on things, such as reading the newspaper or watching television: not at all 8. Moving or speaking so slowly that other people could have noticed. Or the opposite - being so fidgety or restless that you have been moving around a lot more than usual: not at all 9. Thoughts that you would be better off or of hurting yourself in some way: not at all Total score: 0 Depression Screening Interpretation: Negative Source: Developed by Drs. Bill Morris, Chiquis Webster, Duke Madera and colleagues, with an educational claudia from [employer]. Thrive Questionnaire Date Thrive assessed: 08/06/22 AUDIT C Alcohol Use Questionnaire (AUDIT-C) 1. How often do you have a drink containing alcohol?: Monthly or less 2. How many drinks containing alcohol do you have on a typical day when you are drinking?: 1 or 2 Total Score: 1 Score Reviewed/Action Taken: No PACO-7 AMB Questionnaire PACO-7 Date PACO - 7 assessed: 08/06/22 Source: Developed by Drs. Bill Morris, Chiquis Webster, Duke Madera and colleagues, with an educational claudia from [employer]. Review of Systems Const Denies poor appetite and Denies weakness Eyes Denies no additional complaints ENT Reports Normal hearing present, Denies dizziness, Denies nasal congestion, Denies tinnitus and Denies sore throat Card Denies chest pain, Denies syncope, Denies rapid heart rate and Denies dyspnea Resp Denies cough and Denies dyspnea GI Denies change in stool character, Reports constipation, Denies diarrhea, Denies nausea and Denies vomiting Denies urinary frequency, Denies difficulty voiding and Denies dysuria Neuro Reports Normal hearing present, Denies confusion, Denies dizziness, Denies syncope and Denies weakness Psych Denies confusion Physical exam (Primary Care) Vital Signs: Last Vital Signs Pulse 80 02/06/23 14:57 BP 118/72 02/06/23 14:57 Pulse Ox 98 02/06/23 14:57 Oxygen Delivery Method Room Air 02/06/23 14:57 Care Plan Goal for BP management: decline rectal exam . hyperpigmented rash 1 cm R arm states changing BMI result Body Mass Index 25.5 Tobacco/Smoking Status: Tobacco use Status Tobacco use date assessed 01/21/23 02/06/23 15:06 Patient Tobacco Use Status Former Tobacco user 02/06/23 15:06 Tobacco use type Cigarette 02/06/23 15:06 e-Cigarette/Vaping Use Never Used 02/06/23 15:06 PHQ-9: PHQ-9 Score PHQ-9: Total score 0 02/06/23 15:06 Depression Screening Interpretation: Negative Thrive Assessment: Date of Thrive Assessment Date Thrive assessed 08/06/22 02/06/23 15:06 Const General: No confusion Orientation/consciousness: No confusion HENMT Head: Yes normocephalic Ears: external ears normal and TM's normal bilaterally Face and sinus: Yes normal facial exam Mouth: moist mucous membranes Throat: Yes tonsils normal Eyes Conjunctivae: conjunctivae normal Pupils: Equal, round and reactive pupils present and Pupil accommodation reflex normal Direct Ophthalmoscopy: normal light reflex Neck Neck: No lymphadenopathy Thyroid: Thyroid normal Chest Chest palpation & inspection: normal inspection of the chest Resp Effort & Inspection: normal respiratory effort and no audible wheezes Auscultation: clear to auscultation bilaterally, no crackles, no wheezes and lung sounds not diminished Cardio Rate: regular rate Rhythm: regular rhythm Peripheral pulses: radial pulses present and dorsalis pedis present GI Palpation (GI): no masses Auscultation: normal bowel sounds and normoactive bowel sounds Rectal Exam - Female: deferred Skin General skin exam: no rashes or lesions noted Rashes: no rashes Neuro General: No confusion Cranial nerves: Yes Equal, round and reactive pupils present and Yes Normal hearing present Cognition (Neuro): normal cognition Gait exam (Neuro): Normal gait present Motor exam (neuro): 5/5 motor strength present throughout Deep tendon reflexes (DTR's): Right brachioradialis reflex intensity grade: 2+, Left brachioradialis reflex intensity grade: 2+, Right patellar reflex intensity grade: 2+ and Left patellar reflex intensity grade: 2+ Extrem General: No edema Assessment and Plan Assessment & Plan (1) Annual physical exam: Code(s): Z00.00 - Encounter for general adult medical examination without abnormal findings (2) Hypercholesterolemia: Code(s): E78.00 - Pure hypercholesterolemia, unspecified Plan: Avoid fried foods, chicken skin, eggs, butter margarine, pastries and meat. Be it pork or beef they have a lot of cholesterol LDL goal of less than 130 and triglyceride of less than 150 (3) Impaired glucose tolerance: Code(s): R73.02 - Impaired glucose tolerance (oral) Plan: Decrease the amount of carbohydrate intake, pasta, bread, rice and potatoes are all sugar and that is aside from all the sweet stuff, remember that fruits are good but they are Sweet also. (4) GERD (gastroesophageal reflux disease): Code(s): K21.9 - Gastro-esophageal reflux disease without esophagitis Qualifiers: Esophagitis presence: without esophagitis Qualified Code(s): K21.9 - Gastro-esophageal reflux disease without esophagitis Plan: Avoid the foods that causes that usually spicy foods, tomato products, juices, coffee, soda and foods that your sensitive to. After eating do not lie down, allow 3-4 hours before in lie down. And keep the head of bed above 30 degrees to avoid the acid from going up. (5) Irritable bowel syndrome with constipation: Code(s): K58.1 - Irritable bowel syndrome with constipation Plan: Keep well hydrated, eat healthy and keep moving (6) Generalized anxiety disorder: Code(s): F41.1 - Generalized anxiety disorder (7) Interstitial cystitis (chronic) with hematuria: Code(s): N30.11 - Interstitial cystitis (chronic) with hematuria Plan: Patient follows up with urology (8) Multiple pigmented nevi: Code(s): D22.9 - Melanocytic nevi, unspecified Orders: Orders Comprehensive Met. Panel 3 Months E78.00 - Pure hypercholesterolemia, unspecified Lipid Panel 3 Months E78.00 - Pure hypercholesterolemia, unspecified Hemoglobin A1c 3 Months R73.02 - Impaired glucose tolerance (oral) Referrals Dermatology Referral D22.9 - Melanocytic nevi, unspecified Psychiatry Referral F41.1 - Generalized anxiety disorder Coding Level of Care Code Est Pt Prev Care 40-64y(83836) Diagnoses Annual physical exam Z00.00 Hypercholesterolemia E78.00 Impaired glucose tolerance R73.02 GERD (gastroesophageal reflux disease) K21.9 Esophagitis presence: without esophagitis Irritable bowel syndrome with constipation K58.1 Generalized anxiety disorder F41.1 Interstitial cystitis (chronic) with hematuria N30.11 Multiple pigmented nevi D22.9 Additional Codes PHQ-9 - 53874 - PHQ-9 Billing: Y ([id number])
[2023-02-06 14:57] VITALS: BP 118/72; PULSE 80; O2SAT 98; BMI 25.5
== END 2023-02-06 15:46 | disposition home or self-care (01) ==
PROVIDERS: PCP Internal Medicine; Visit Provider Internal Medicine
DX: Z00.00 Encounter for general adult medical examination without abnormal findings (principal); K58.1 Irritable bowel syndrome with constipation; K21.9 Gastro-esophageal reflux disease without esophagitis; E78.00 Pure hypercholesterolemia, unspecified; R73.02 Impaired glucose tolerance (oral); F41.1 Generalized anxiety disorder; N30.11 Interstitial cystitis (chronic) with hematuria; D22.9 Melanocytic nevi, unspecified
CPT/HCPCS: 99396

== ENCOUNTER → 2023-02-07 08:28 | Outpatient (REF) | payer OTHER, SELFPAY ==
--- NOTE | 2023-02-07 08:31 | CA_ITS ---
Acquisition Time: 2023-02-07 08:51:12 Total Exercise Time: 00:09:57 Test Indications: CP Medications: ATORVASTATIN FENOFIBRATE FLONASE PANTOPRAZOLE LINZESS BACLOFEN MAG CETIRIZINE Protocol: LAST Max HR: 151 BPM 90% of Pred: 167 BPM Max BP: 110/070 mmHG Max Work Load: 11.5 METS Exercise stress test with exercise 9 min 57 sec of Last protocol achieving 88% MPHR, with baseline 3/10 mid to left chest tightness, mild SOB, without arrhythmias, with resting BP 110/70 and lowest 104/50 with exercise, 94/60 in recovery. mild lightheadness reported with no vision changes at peak exercise which resolved quickly in recovery, without EKG changes. Test reviewed with Dr. Ortega. Poor tracings at peak exercise. Non diagnostic due to poor EKG tracings. Suggest stress echo cardiogram Referred By: Elisabeth Frost Overread By: CASE ORTEGA MD
--- NOTE | 2023-02-07 08:31 | HM_ITS ---
Conclusion: 1. Patient was monitored for total period of 3 days and 4 hours 2. Baseline was normal sinus with average heart of 73 beats per minute 3. Very rare ectopy noted 4. No significant pauses noted 5. Patient reported 6 symptoms mostly of chest pain and shortness of breath that correlated with sinus rhythm or sinus tachycardia. MTDD
== END ==
LOC: HO.CARD 08:28
PROVIDERS: PCP Internal Medicine; Visit Provider Nurse Practitioner Family
DX: R07.9 Chest pain, unspecified (principal); R00.2 Palpitations
CPT/HCPCS: 93017; 93242

== ENCOUNTER → 2023-02-07 08:31 | Outpatient (BNV) | payer OTHER, SELFPAY | PROVIDERS: PCP Internal Medicine; Visit Provider Internal Medicine Cardiovascular Disease | DX: R00.2 Palpitations (principal); R07.89 Other chest pain; R06.02 Shortness of breath | CPT/HCPCS: 93016; 93018; 93244 ==

== ENCOUNTER → 2023-02-10 15:50 | Outpatient (REF) | payer OTHER, SELFPAY | LOC: HO.SL 15:50 | PROVIDERS: PCP Internal Medicine; Visit Provider Nurse Practitioner Family | DX: Z13.89 Encounter for screening for other disorder (principal) ==

== ENCOUNTER 2023-02-21 12:41 | Outpatient (AMB) | payer OTHER, SELFPAY ==
--- NOTE | 2023-02-21 12:54 | A.OFFVIS_ITS ---
Intake Vital Signs 02/21/23 12:58 Height 5 ft 5 in Weight 153 lb 0.013 oz BMI 25.5 BP 98/53 L Blood Pressure Location Lt brachial Position Sitting Pulse 82 Intake Visit Reasons: 4 week follow up Intake Note: Patient presents to in office visit today in follow up of abdominal pain. CC: Patient states she has been doing well until today after eating fried food. Denies other GI symptoms today. Boiling Tub Operator Required: No Accompanied by: Self / Same As Patient Allergies latex [Latex] Allergy (Mild, Verified 02/21/23 13:01) SWELLING/ITCHING Sulfa (Sulfonamide Antibiotics) Allergy (Mild, Verified 02/21/23 13:01) SWELLING/ITCHING, pruritis sulfamethoxazole [From BACTRIM] Allergy (Unknown, Verified 02/21/23 13:01) ITCHY/HIVES trimethoprim [From BACTRIM] Allergy (Unknown, Verified 02/21/23 13:01) ITCHY/HIVES metoclopramide [From REGLAN] Adverse Reaction (Unknown, Verified 02/21/23 13:01) AGITATION HPI 4 week follow up HPI Details Assessment & Plan (1) Chronic idiopathic constipation: ?Code(s): K59.04 - Chronic idiopathic constipation ?Plan: She is due for a repeat colonoscopy and would like and EGD r/t her recent difficulties. BUT her insurance changed and she needs to find out if she has any copays, AND SHE NEEDS CARDIOLOGY CLEARANCE FIRST. She was seen twice in the ER for abd pain and then for abd with tachycardia. When she is cleared with cardiology will consider EGD/colonoscopy, as she does have a past dx of erosive esophagitis/gastritis. She continues on her protonix qd and simethicone. She is now moving her bowels normally and only using the LInzess 72mcg prn. Does not yet have appt with cardiology, I gave her phone # and encourage her to call. She wants the pill prep for next colonoscopy. ROV 4 weeks. (2) Erosive esophagitis: ?Comment: EGD and colon December 2018 , May 2019 5 years ?Code(s): K22.10 - Ulcer of esophagus without bleeding (3) Irritable bowel syndrome with constipation: ?Code(s): K58.1 - Irritable bowel syndrome with constipation (4) GERD (gastroesophageal reflux disease): ?Code(s): K21.9 - Gastro-esophageal reflux disease without esophagitis ?Qualifiers: ?Esophagitis presence:?without esophagitis? Qualified Code(s):?K21.9 - Gastro-esophageal reflux disease without esophagitis (5) Tubular adenoma of colon: ?Code(s): D12.6 - Benign neoplasm of colon, unspecified (6) Tachycardia: ?Code(s): R00.0 - Tachycardia, unspecified ? ? ? Orders: Referrals Cardiology Referra l ? R00.0 - Tachycardi a, unspecified ? Medications: New Lactobacillus acid ophilus 100 mg? PO DAILY 9 0 days 90 caps 1RF ? ? Refilled pantoprazole 40 mg? PO DAILY 90 tabs 2RF K21.9 - Gastro-eso phageal reflux dis ease without esoph agitis ? ? ? TODAY'S VISIT She is still waiting for her cardiology appt to dx her palpitations and wants this stabilized before she agrees to repeat colonoscopy/egd. When she does have the scope she would prefer the pill prep if insurance covers it. She has been moving her bowels well and only using the Linzess 72mcg prn. She continues she on the pantoprazole and simethicone and still has occasional breakthrough of GERD with certain foods. She ate some fried foods today that really set it off, this prompts a re discussion of GERD food triggers and I again print her a list of foods form [employer]. Her card apt is in Mar. ROV 3 mos. [facility] Medical History (Updated 02/06/23 @ 15:34 by Gigi Barrow MD) Abdominal cramping Abdominal pain Acute conjunctivitis of left eye Acute pharyngitis Allergic conjunctivitis Benign hematuria Bilateral lower extremity pain Cervical disc herniation Cervicalgia Chronic cough Colitis COVID-19 COVID-19 long hauler Daytime sleepiness Diarrhea Dizziness Dysuria Elevated lipase Erosive esophagitis Frequency of micturition Frequency of micturition GERD (gastroesophageal reflux disease) Hearing deficit Heart palpitations Hematuria Hematuria Hemorrhoids Hypercholesterolemia Impaired glucose tolerance Interstitial cystitis Irritable bowel syndrome Lateral meniscal tear Lightheadedness Migraine Migraine Multiple thyroid nodules Myalgia Nephrolithiasis Pain in both knees Palpitations Post-vaccination reaction Pre-op examination Restrictive lung disease Scalp cyst Snoring Suprapubic pain Tachycardia Toe pain, right Toe swelling Unspecified Eustachian tube disorder, left ear Upper abdominal pain Urgency of micturition Vaginal itching Vaginal spotting Vertigo Vitamin B12 deficiency Vitamin D deficiency Wound of right leg Surgical History H/O esophagogastroduodenoscopy History of lumpectomy of left breast Hx of colonoscopy Hx of tubal ligation S/P excision of lipoma Family History Father Skin cancer Mother Skin cancer High blood pressure Heart problem CVA (cerebral vascular accident) Maternal Grandfather Skin cancer Cancer FH: prostate cancer Brother Schizophrenia Other Mental health problem Social History (Updated 02/06/23 @ 15:21 by Gigi Barrow MD) Household Members: None Housing: Apartment Alcohol intake: never Patient Tobacco Use Status: Former Tobacco user Tobacco use type: Cigarette Years Smoked: quit 2007 e-Cigarette/Vaping Use: Never Used Second Hand Smoke Exposure: No service: No Current occupational status: employed 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 Cognitive needs: No Hearing needs: No Vision needs: No Review of Systems Const Denies fatigue, Denies fever(s), Denies night sweats, Denies poor appetite and Denies weight loss ENT Reports Normal hearing present, Denies dental pain, Denies dysphagia, Denies hearing loss, Denies mouth pain, Denies odynophagia, Denies throat swelling, Denies tongue swelling and Reports other (Dentition adequate) Card Reports no additional complaints Resp Reports no additional complaints GI Denies abdominal pain, Denies melena, Denies bloating, Denies hematochezia, Reports constipation, Denies GI cramping, Denies dysphagia, Denies excessive flatus, Denies early satiety, Reports heartburn, Denies diarrhea, Denies nausea, Denies odynophagia, Denies vomiting and Denies hematemesis Skin/Breast Denies pruritus, Denies lesions, Denies rash and Denies jaundice Neuro Reports Normal hearing present and Denies Abnormal speech present Endo Denies fatigue Aller/Immun Denies throat swelling and Denies tongue swelling Physical Exam Vital Signs: Last Vital Signs Pulse 82 02/21/23 12:58 BP 98/53 L 02/21/23 12:58 BMI result Body Mass Index 25.5 Const General: cooperative, no acute distress, well developed and well groomed Nutritional Appearance: average body habitus and well nourished Orientation/consciousness: oriented to person, oriented to place and oriented to time Limitations: No language barrier HEENT Head: Yes normocephalic and Yes atraumatic Eyes General: appearance normal, both eyes and all related structures Pupils: Equal, round and reactive pupils present Neck Neck: Yes normal visual inspection and Yes no lymphadenopathy Thyroid: Thyroid normal Resp Effort & Inspection: normal respiratory effort and able to speak in complete sentences Auscultation: clear to auscultation bilaterally Cardio Rate: regular rate Rhythm: regular rhythm Heart sounds: Normal, physiologic split S2 sound present Peripheral pulses: radial pulses present and posterior tibial pulses present GI Inspection: No distended and No Abdominal panniculus present Palpation (GI): Soft to palpation, nontender, no guarding, not rigid and No hepatosplenomegaly present Percussion: Yes normal to percussion Auscultation: normal bowel sounds Rectal Exam - Female: deferred Skin General skin exam: no rashes or lesions noted, turgor normal, skin not dry, no jaundice, No spider nevi and no striae Rashes: no rashes Nails: normal Neuro General: oriented to person, oriented to place and oriented to time Cranial nerves: Yes Equal, round and reactive pupils present and Yes Normal hearing present Speech: No Abnormal speech present Extrem General: Yes normal to inspection, No clubbing, No cyanosis and No edema Psych Appearance: grossly normal and well kempt Mental Status: mental status grossly normal Speech and movement: Normal speech and movement present Affect: normal affect Attitude: cooperative Thought process: Normal thought process present and not confabulating Thought content: Normal thought content present Insight: Limited insight present (Psych) Judgement: Limited judgement present (Psych) Assessment & Plan Assessment & Plan (1) Erosive esophagitis: Comment: EGD and colon December 2018 , May 2019 5 years Code(s): K22.10 - Ulcer of esophagus without bleeding Plan: She is still waiting for her cardiology appt to dx her palpitations and wants this stabilized before she agrees to repeat colonoscopy/egd. When she does have the scope she would prefer the pill prep if insurance covers it. She has been moving her bowels well and only using the Linzess 72mcg prn. She continues she on the pantoprazole and simethicone and still has occasional breakthrough of GERD with certain foods. She ate some fried foods today that really set it off, this prompts a re discussion of GERD food triggers and I again print her a list of foods form [employer]. Her card apt is in Mar. ROV 3 mos. (2) GERD (gastroesophageal reflux disease): Code(s): K21.9 - Gastro-esophageal reflux disease without esophagitis Qualifiers: Esophagitis presence: without esophagitis Qualified Code(s): K21.9 - Gastro-esophageal reflux disease without esophagitis (3) Irritable bowel syndrome with constipation: Code(s): K58.1 - Irritable bowel syndrome with constipation (4) Chronic idiopathic constipation: Code(s): K59.04 - Chronic idiopathic constipation (5) Delayed gastric emptying: Code(s): K30 - Functional dyspepsia Coding Level of Care Code Est Pt Level 3 (82231) Diagnoses Erosive esophagitis K22.10 GERD (gastroesophageal reflux disease) K21.9 Esophagitis presence: without esophagitis Irritable bowel syndrome with constipation K58.1 Chronic idiopathic constipation K59.04 Delayed gastric emptying K30
[2023-02-21 12:58] VITALS: BP 98/53; PULSE 82; BMI 25.5
== END 2023-02-21 13:29 | disposition home or self-care (01) ==
PROVIDERS: PCP Internal Medicine; Visit Provider Nurse Practitioner
DX: K22.10 Ulcer of esophagus without bleeding (principal); K21.9 Gastro-esophageal reflux disease without esophagitis; K58.1 Irritable bowel syndrome with constipation; K59.04 Chronic idiopathic constipation; K30 Functional dyspepsia
CPT/HCPCS: 99213

== ENCOUNTER → 2023-02-21 12:41 | Outpatient (BNVA) | payer OTHER, SELFPAY | PROVIDERS: PCP Internal Medicine; Visit Provider Nurse Practitioner | DX: K22.10 Ulcer of esophagus without bleeding (principal); K21.9 Gastro-esophageal reflux disease without esophagitis; K58.1 Irritable bowel syndrome with constipation; K59.04 Chronic idiopathic constipation; K30 Functional dyspepsia | CPT/HCPCS: 99212 ==

== ENCOUNTER → 2023-03-17 12:43 | Outpatient (REF) | payer OTHER, SELFPAY ==
--- NOTE | 2023-03-17 12:49 | CA_ITS ---
Acquisition Time: 2023-03-17 12:50:03 Total Exercise Time: 00:09:29 Test Indications: Abnormal Treadmill Test Medications: SEE H Protocol: LAST Max HR: 169 BPM 101% of Pred: 167 BPM Max BP: 138/078 mmHG Max Work Load: 10.8 METS Exercise stress test exercise 9 min 29 sec of Last protocol achieving 95% MPHR , with mild SOB, no chest discomfort, without arrhythmias, with normotensive response to exercise, without EKG changes. Echo images obtained by tech at rest and immediately post peak exercise. Definity contrast used, Test reviewed with Dr. Grullon. Referred By: Elisabeth Frost Overread By: Shantell Livingston
== END ==
LOC: HO.CARD 12:43
PROVIDERS: PCP Internal Medicine; Visit Provider Nurse Practitioner Family
DX: R07.9 Chest pain, unspecified (principal)
CPT/HCPCS: 93350; Q9957

== ENCOUNTER → 2023-03-17 12:49 | Outpatient (BNV) | payer OTHER, SELFPAY | PROVIDERS: PCP Internal Medicine; Visit Provider Nurse Practitioner | DX: R06.02 Shortness of breath (principal); R94.39 Abnormal result of other cardiovascular function study | CPT/HCPCS: 93016; 93018; 93350; 93352 ==

== ENCOUNTER 2023-04-08 12:48 | Outpatient (AMB) | payer SELFPAY ==
--- NOTE | 2023-04-08 12:49 | MHC.OFFVIS ---
Intake Vital Signs 04/08/23 12:50 Height 5 ft 5 in Weight 149 lb 0.52 oz BMI 24.8 BP 100/70 Blood Pressure Location Lt brachial Position Sitting Pulse 71 Intake Visit Reasons: NPV/Palpitations/Dr. 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 Required: No Accompanied by: Self / Same As Patient Allergies latex [Latex] Allergy (Mild, Verified 04/08/23 12:51) SWELLING/ITCHING Sulfa (Sulfonamide Antibiotics) Allergy (Mild, Verified 04/08/23 12:51) SWELLING/ITCHING, pruritis sulfamethoxazole [From BACTRIM] Allergy (Unknown, Verified 04/08/23 12:51) ITCHY/HIVES trimethoprim [From BACTRIM] Allergy (Unknown, Verified 04/08/23 12:51) ITCHY/HIVES metoclopramide [From REGLAN] Adverse Reaction (Unknown, Verified 04/08/23 12:51) AGITATION Medication List - Last Reconciled 04/08/23 by Lucas Grullno MD atorvastatin 10 mg PO DAILY blood pressure monitor (Blood Pressure Kit) As directed cetirizine 10 mg PO DAILY cholecalciferol (vitamin D3) 50 mcg PO DAILY fenofibrate 160 mg PO DAILY fluticasone propionate 50 mcg/actuation 2 sprays intranasal DAILY PRN Lactobacillus acidophilus 100 mg PO DAILY 90 days multivitamin 1 tab PO DAILY ondansetron 4 mg PO Q8H 4 days pantoprazole 40 mg PO DAILY HPI HPI Comments History of Present Illness Details Christelle is here for consultation regarding palpitations. She states that recently she has been noticing a lot of sensations of heart racing. This can happen randomly and she thinks her heart is going in the 100s and she looks at her watch and it is showing high rate as well. Nothing provoke it event and can happen any time. During the same time she also feels and nonspecific discomfort in the chest. Hence she gets extremely anxious. Otherwise, no known coronary artery disease or myocardial infarction or cardiomyopathy or in fact any major cardiac issues in the past. [facility] Medical History (Updated 04/08/23 @ 13:27 by Lucas Grullon MD) Tachycardia Daytime sleepiness Snoring Migraine Vertigo Cervicalgia Pre-op examination Unspecified Eustachian tube disorder, left ear Acute pharyngitis Urgency of micturition Abdominal pain Dysuria Diarrhea Lightheadedness Dizziness Hematuria Acute conjunctivitis of left eye Wound of right leg Abdominal cramping Allergic conjunctivitis Nephrolithiasis Colitis Interstitial cystitis Chronic cough COVID-19 long hauler COVID-19 Elevated lipase Pain in both knees Heart palpitations Upper abdominal pain Vaginal itching Suprapubic pain Vaginal spotting Hematuria Frequency of micturition Myalgia Post-vaccination reaction Palpitations Bilateral lower extremity pain Hearing deficit Frequency of micturition Toe swelling Toe pain, right Vitamin B12 deficiency Scalp cyst Vitamin D deficiency GERD (gastroesophageal reflux disease) Multiple thyroid nodules Lateral meniscal tear Restrictive lung disease Benign hematuria Hemorrhoids Irritable bowel syndrome Cervical disc herniation Impaired glucose tolerance Migraine Hypercholesterolemia Erosive esophagitis Surgical History Hx of colonoscopy H/O esophagogastroduodenoscopy S/P excision of lipoma Hx of tubal ligation History of lumpectomy of left breast Family History Father Skin cancer Mother Skin cancer High blood pressure Heart problem CVA (cerebral vascular accident) Maternal Grandfather Skin cancer Cancer FH: prostate cancer Brother Schizophrenia Other Mental health problem Social History Household Members: None Housing: Apartment Alcohol intake: never Patient Tobacco Use Status: Former Tobacco user Tobacco use type: Cigarette Years Smoked: quit 2007 e-Cigarette/Vaping Use: Never Used Second Hand Smoke Exposure: No service: No Current occupational status: employed 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 Cognitive needs: No Hearing needs: No Vision needs: No Review of Systems Const Denies chills, Denies daytime sleepiness, Denies fatigue, Denies fever(s), Denies frequent falls, Denies night sweats, Denies snoring, Denies weakness, Denies weight gain and Denies weight loss Eyes Denies loss of vision ENT Denies dizziness and Denies hearing loss Card Denies chest pain, Denies chest pain with activity, Denies syncope, Denies rapid heart rate, Denies edema, Denies claudication, Denies leg edema, Denies lightheadedness, Denies palpitations, Denies dyspnea, Denies dyspnea on exertion and Denies orthopnea Resp Denies cough, Denies excessive phlegm production, Denies dyspnea, Denies dyspnea on exertion, Denies snoring and Denies wheezing GI Denies abdominal pain, Denies hematochezia, Denies change in bowel habits, Denies change in stool character, Denies heartburn, Denies nausea and Denies vomiting Denies hematuria, Denies urinary frequency and Denies dysuria Musc Denies arthralgias, Denies muscle weakness, Denies numbness and Denies tingling Skin/Breast Denies nail changes and Denies rash Neuro Denies Abnormal speech present, Denies dizziness, Denies syncope, Denies frequent falls, Denies loss of vision, Denies memory loss, Denies numbness, Denies tingling and Denies weakness Psych Denies depression and Denies memory loss Endo Denies fatigue and Denies palpitations Aller/Immun Denies wheezing Physical Exam Vital Signs: Last Vital Signs Pulse 71 04/08/23 12:50 BP 100/70 04/08/23 12:50 BMI result Body Mass Index 24.8 Const General: comfortable and no acute distress Orientation/consciousness: patient oriented x3 HEENT Other: Unremarkable Head: Yes normal to inspection Neck Neck: Yes normal visual inspection Chest Chest palpation & inspection: normal inspection of the chest Resp Auscultation: clear to auscultation bilaterally Cardio Palpation: normal PMI Heart sounds: S1 normal heart sound present, S2 normal heart sound present, no gallops, no murmurs and no rubs GI Palpation (GI): Soft to palpation Back/Spine/Pelvis Other: unremarkable Skin General skin exam: no rashes or lesions noted Neuro General: patient oriented x3 Speech: No Abnormal speech present Extrem General: Yes normal to inspection Psych Mental Status: mental status grossly normal Assessment & Plan Assessment & Plan (1) Heart palpitations: Code(s): R00.2 - Palpitations (2) Chest pain: Code(s): R07.9 - Chest pain, unspecified Qualifiers: Chest pain type: other chest pain Qualified Code(s): R07.89 - Other chest pain Plan In the baseline EKG, underlying rhythm is sinus at 86/Min; no significant ST-T changes and otherwise unremarkable. Normal HI and corrected QT. In the Holter monitor, underlying rhythm is sinus at 73/Min; there is some sinus tachycardia but no other tachyarrhythmias. Symptoms of chest pain, shortness of breath correlate with either sinus rhythm or mild sinus tachycardia. Exercise stress echocardiogram is also unremarkable at 10.8 METS exercise capacity. Overall, no clear findings based on the above. She feels as though the Holter monitor did not capture all her symptoms as she was reasonably okay at that time. Hence we can do a longer term monitoring for 2 weeks. Also do complete transthoracic echocardiogram for any structural abnormality. Reassured her as much. Orders: Orders CA echo transthoracic complete Today R00.2 - Palpitations ECG 14 day holter monitor Today R00.2 - Palpitations Coding Level of Care Code New Pt Level 3 (00856) Diagnoses Heart palpitations R00.2 Other chest pain R07.89 Chest pain type: other chest pain
[2023-04-08 12:50] VITALS: BP 100/70; PULSE 71; BMI 24.8
== END 2023-04-08 13:10 | disposition home or self-care (01) ==
PROVIDERS: PCP Internal Medicine; Referring Provider Internal Medicine; Visit Provider Internal Medicine
DX: R00.2 Palpitations (principal); R07.89 Other chest pain
CPT/HCPCS: 99203

== ENCOUNTER → 2023-04-08 12:48 | Outpatient (BNVA) | payer OTHER, SELFPAY | PROVIDERS: PCP Internal Medicine; Referring Provider Internal Medicine; Visit Provider Internal Medicine ==

== ENCOUNTER → 2023-04-22 15:45 | Outpatient (REF) | payer OTHER, SELFPAY | LOC: HO.SL 15:45 | PROVIDERS: PCP Internal Medicine; Visit Provider Nurse Practitioner Family | DX: R06.83 Snoring (principal); R40.0 Somnolence; G43.909 Migraine, unspecified, not intractable, without status migrainosus | CPT/HCPCS: 95806 ==

== ENCOUNTER → 2023-04-22 15:50 | Outpatient (BNV) | payer OTHER, SELFPAY | PROVIDERS: PCP Internal Medicine; Visit Provider Internal Medicine | DX: R06.83 Snoring (principal) | CPT/HCPCS: 95806 ==

== ENCOUNTER 2023-05-06 07:00 | Outpatient (REF) | payer OTHER, SELFPAY | END 2023-05-06 07:01 | disposition home or self-care (01) | LOC: HO.LAB 07:00 | PROVIDERS: PCP Internal Medicine; Visit Provider Internal Medicine | DX: R73.02 Impaired glucose tolerance (oral) (principal); E78.00 Pure hypercholesterolemia, unspecified | CPT/HCPCS: 36415; 80053; 80061; 81001; 83036; 87086 ==

== ENCOUNTER → 2023-05-07 13:44 | Outpatient (REF) | payer OTHER, SELFPAY ==
--- NOTE | 2023-05-07 13:47 | HM_ITS ---
* Total monitoring time 5 days. * Underlying rhythm is sinus. Average ventricular rate 79/Min. Range 47 to 147/Min. * Very rare ventricular ectopy. * No sustained arrhythmias. * No significant pauses or AV blocks. * Palpitations, skipping in patient diary correlates with mild sinus tachycardia. MTDD
--- NOTE | 2023-05-07 13:47 | CA_ITS ---
Transthoracic Echocardiogram Patient (Last, First, Middle): Christelle Stewart, Gender: Female Date of : 1970 Age: 52 Procedure Date: 05/07/2023 Procedure Type: Transthoracic Echocardiogram Location: OP Height: 165.1 cm Weight: 66.68 kg BSA: 1.74 m2 Heart Rate: bpm BP: 98 / 52 mmHg Accountant Cost: TO Referring MD: Lucas Grullon MD Symptoms: R00.2 - Palpitations Study Quality: Fair ECG Rhythm: Sinus Conclusions: - The left ventricular systolic function is normal. The calculated ejection fraction is 68% by biplane method. - No obvious valvular pathology seen on this study. Findings Left Ventricle Normal left ventricular cavity size. There is normal left ventricular wall thickness. The left ventricular systolic function is normal. The calculated ejection fraction is 68% by biplane method. There is no evidence of regional wall motion abnormalities. Diastolic function is normal for age. Right Ventricle Normal right ventricular cavity size and systolic function. Atria Both atria are normal in size. Aortic Valve There is a normal trileaflet aortic valve. There is no aortic valve stenosis. There is no aortic valve regurgitation. Mitral Valve The mitral valve appears normal. There is no mitral valve regurgitation. There is no mitral valve stenosis. Pulmonic Valve There is trace pulmonic valve regurgitation. Tricuspid Valve There is no tricuspid valve regurgitation. Tricuspid regurgitation envelope is inadequate for calculation of right ventricular systolic pressure. Great Vessels The asc aorta is normal in size. Venous The inferior vena cava is normal in size and collapses greater than 50% with inspiration. Pericardium/Pleural There is a trivial pericardial effusion. Prior Study Comparison No significant change compared to prior study dated: 06/01/2019. Recommendations, Care & Conclusions No obvious valvular pathology seen on this study. Measurements 2D Linear Measurements IVSd: 0.80 0.6-0.9/0.6-1.0 cm LVIDd: 5.10 3.9-5.3/4.2-5.9 cm LVIDd Index: 2.93 2.4-3.2/2.2-3.1 cm/m2 LVIDs: 2.90 2.0-3.6 cm LVPWd: 0.60 0.7-1.1 cm LA Diam: 3.40 2.7-3.8/3.0-4.0 cm LAIDs Index: 1.95 1.5-2.3 cm/m2 LV Mass: 147.65 67-162/88-224 g LV Mass Index: 84.86 43-95/49-115 g/m2 LVOT Diam: 1.90 3.0+(-)1.3 cm 2D Systolic Function EF 4C: 67.30 >55% EF 2C: 68.60 >55% EF BiP: 68.20 >55% Mitral Valve MV Pk E: 0.76 MV PK A: 0.88 MV Decel Time: 203.00 E/A: 0.90 E'Lateral: 9.68 E'Medial: 6.53 E/E' Med: 11.70 E/E' Lat: 7.90 PHT: 59.00 MVA PHT: 3.73 Decel Brooke: 3.76 Aortic Valve AoV Pk Aleksander: 1.51 AoV Mn Aleksander: 1.03 AoV VTI: 0.29 AoV Pk Grad: 9.00 Aov Mn Grad: 5.00 MAGO Cont.VTI: 2.02 LVOT LVOT Pk Aleksander: 0.98 LVOT Mn Aleksander: 0.68 LVOT VTI: 0.21 LVOT Pk Grad: 4.00 LVOT Mn Grad: 2.00 LVOT Diam: 1.90 LVOT Area: 2.84 Diastolic Function MV Pk E: 0.76 MV Pk A: 0.88 E/A: 0.90 E'Medial: 6.53 E/E' Med: 11.70 E' Laterial: 9.68 E/E' Lat: 7.90 Right Ventricle TAPSE (mm): 22.00 TVS' Aleksander: 9.90 Tricuspid Valve RA Press: 3.00 Great Vessels Aorta Sinus of Valsalva: 2.80 2.0-3.5 cm Ao Asc: 2.60 2.1-3.4 cm Updated in Other Vendor System with Status of Final Lucas Grullon MD electronically signed on 05/08/2023 9:52:56 AM with status of Final
== END ==
LOC: HO.CARD 13:44
PROVIDERS: Visit Provider Internal Medicine
DX: R00.2 Palpitations (principal)
CPT/HCPCS: 93246; 93306

== ENCOUNTER → 2023-05-07 13:47 | Outpatient (BNV) | payer OTHER, SELFPAY | PROVIDERS: Visit Provider Internal Medicine | DX: R00.1 Bradycardia, unspecified (principal) | CPT/HCPCS: 93244; 93306 ==

== ENCOUNTER 2023-05-12 13:49 | Outpatient (AMB) | payer OTHER, SELFPAY ==
[2023-05-12 13:57] VITALS: BP 98/64; PULSE 72; O2SAT 98; BMI 25.0
--- NOTE | 2023-05-12 13:57 | MHC.PC.OV ---
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: No Allergies latex [Latex] Allergy (Mild, Verified 05/12/23 13:58) SWELLING/ITCHING Sulfa (Sulfonamide Antibiotics) Allergy (Mild, Verified 05/12/23 13:58) SWELLING/ITCHING, pruritis sulfamethoxazole [From BACTRIM] Allergy (Unknown, Verified 05/12/23 13:58) ITCHY/HIVES trimethoprim [From BACTRIM] Allergy (Unknown, Verified 05/12/23 13:58) ITCHY/HIVES metoclopramide [From REGLAN] Adverse Reaction (Unknown, Verified 05/12/23 13:58) AGITATION Tobacco use date assessed: 05/12/23 Dental Screening Dental Screen Date: 05/12/23 Did you have a dental visit in the last 12 months?: Yes Did you have a dental problem in the last 6 months where you did not have access to dental care?: No Was dental information given to patient?: Patient has dentist HPI 3mon F/U HPI Details 52-year-old female with hypercholesterolemia impaired glucose tolerance GERD irritable bowel syndrome generalized anxiety disorder interstitial cystitis coming in for follow-up. Last seen in January for physical exam. Patient has mammogram is due next month colonoscopy is up-to-date. Patient had recent echocardiogram April 2023The left ventricular systolic function is normal. The calculated ejection fraction is 68% by biplane method. - No obvious valvular pathology seen on this study. Patient also had a sleep study done 04/22/2023 showing normal home sleep test Cardiology notes appreciated patient has some concerns about palpitations but Holter monitor, echocardiogram exercise stress unremarkable stress test February 2023Exercise stress test exercise 9 min 29 sec of Satish protocol achieving 95% MPHR, with mild SOB, no chest discomfort, without arrhythmias, with normotensive response to exercise, without EKG changes. Echo images obtained by tech at rest and immediately post peak exercise. Definity contrast used, Test reviewed with Dr. Grullon. Exercise stress echocardiogram reviewed. At rest, there is normal LVEF and wall motion. With peak exercise, there is appropriate augmentation of wall thickening and contractility. There is normal decrease in end-systolic volume. Overall, normal study. Patient also has seen gastroenterology February 2023 on Linzess on pantoprazole in [facility] Medical History (Updated 04/08/23 @ 13:27 by Lucas Grullon MD) Tachycardia Daytime sleepiness Snoring Migraine Vertigo Cervicalgia Pre-op examination Unspecified Eustachian tube disorder, left ear Acute pharyngitis Urgency of micturition Abdominal pain Dysuria Diarrhea Lightheadedness Dizziness Hematuria Acute conjunctivitis of left eye Wound of right leg Abdominal cramping Allergic conjunctivitis Nephrolithiasis Colitis Interstitial cystitis Chronic cough COVID-19 long hauler COVID-19 Elevated lipase Pain in both knees Heart palpitations Upper abdominal pain Vaginal itching Suprapubic pain Vaginal spotting Hematuria Frequency of micturition Myalgia Post-vaccination reaction Palpitations Bilateral lower extremity pain Hearing deficit Frequency of micturition Toe swelling Toe pain, right Vitamin B12 deficiency Scalp cyst Vitamin D deficiency GERD (gastroesophageal reflux disease) Multiple thyroid nodules Lateral meniscal tear Restrictive lung disease Benign hematuria Hemorrhoids Irritable bowel syndrome Cervical disc herniation Impaired glucose tolerance Migraine Hypercholesterolemia Erosive esophagitis Surgical History Hx of colonoscopy H/O esophagogastroduodenoscopy S/P excision of lipoma Hx of tubal ligation History of lumpectomy of left breast Family History Father Skin cancer Mother Skin cancer High blood pressure Heart problem CVA (cerebral vascular accident) Maternal Grandfather Skin cancer Cancer FH: prostate cancer Brother Schizophrenia Other Mental health problem Social History Household Members: None Housing: Apartment Alcohol intake: never Patient Tobacco Use Status: Former Tobacco user Tobacco use type: Cigarette Years Smoked: quit 2007 e-Cigarette/Vaping Use: Never Used Second Hand Smoke Exposure: No service: No Current occupational status: employed 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 How often do you have a drink containing alcohol?: Monthly or less 2. How many drinks containing alcohol do you have on a typical day when you are drinking?: 1 or 2 Total Score: 1 Score Reviewed/Action Taken: No PACO-7 AMB Questionnaire PACO-7 Date PACO - 7 assessed: 08/06/22 Source: Developed by Drs. Bill Morris, Chiquis Webster, Duke Madera and colleagues, with an educational claudia from [employer]. Physical exam (Primary Care) Vital Signs: Last Vital Signs Pulse 72 05/12/23 13:57 BP 98/64 05/12/23 13:57 Pulse Ox 98 05/12/23 13:57 Oxygen Delivery Method Room Air 05/12/23 13:57 BMI result Body Mass Index 25.0 Tobacco/Smoking Status: Tobacco use Status Tobacco use date assessed 05/12/23 05/12/23 13:58 Patient Tobacco Use Status Former Tobacco user 05/12/23 13:58 Tobacco use type Cigarette 05/12/23 13:58 e-Cigarette/Vaping Use Never Used 05/12/23 13:58 Thrive Assessment: Date of Thrive Assessment Date Thrive assessed 08/06/22 05/12/23 13:58 Const General: alert; No acute distress Eyes Conjunctivae: conjunctivae normal Resp Auscultation: clear to auscultation bilaterally Cardio Rate: regular rate Rhythm: regular rhythm GI Inspection: Yes normal to inspection Extrem General: Yes normal to inspection and No edema Office Procedures Flu Questionnaire Does the patient have a severe egg allergy?: No Does the patient have severe life threatening allergies?: No Does the patient have a fever or illness today?: No Has the patient ever had Guillain-[place] Syndrome?: No Has the patient ever had any past reaction to a flu shot?: No Immunizations flu vacc [id number] 6mos up(PF) 60 mcg(15 mcgx4)/0.5 mL IM syringe Performing Provider: Gigi Barrow MD [place] [facility] [place] [facility] Administered by: MARLINE Carson on 05/12/23 14:14 Dose Route Admin Location Dispensed Lot Number Expiration Date NDC Senior Engineering Technician 0.5 mL IM Left Deltoid 0.5 mL [id number] 01/25/24 71012-112-34 [employer] VIS Given Date VIS Provided VIS Publication Date 05/12/23 Single Vaccine 21 Eligibility Eligibility Date Funding Source Not VFC Eligible 05/12/23 Private Assessment and Plan Assessment & Plan (1) Erosive esophagitis: Comment: EGD and colon December 2018 , May 2019 5 years Code(s): K22.10 - Ulcer of esophagus without bleeding Plan: Avoid the foods that causes that usually spicy foods, tomato products, juices, coffee, soda and foods that your sensitive to. After eating do not lie down, allow 3-4 hours before in lie down. And keep the head of bed above 30 degrees to avoid the acid from going up. Patient follows up with Gastroenterology has pantoprazole (2) Hypercholesterolemia: Code(s): E78.00 - Pure hypercholesterolemia, unspecified Plan: Avoid fried foods, chicken skin, eggs, butter margarine, pastries and meat. Be it pork or beef they have a lot of cholesterol LDL goal of less than 130 and triglyceride of less than 150 patient on atorvastatin 10 mg (3) Impaired glucose tolerance: Code(s): R73.02 - Impaired glucose tolerance (oral) Plan: Decrease the amount of carbohydrate intake, pasta, bread, rice and potatoes are all sugar and that is aside from all the sweet stuff, remember that fruits are good but they are Sweet also. (4) Irritable bowel syndrome with constipation: Code(s): K58.1 - Irritable bowel syndrome with constipation Plan: Patient follows up with Gastroenterology and on Linzess (5) Generalized anxiety disorder: Code(s): F41.1 - Generalized anxiety disorder Plan: Stable (6) Heart palpitations: Code(s): R00.2 - Palpitations Plan: Workup has been negative (7) Multiple thyroid nodules: Comment: 03/2020 March 2021 Code(s): E04.2 - Nontoxic multinodular goiter Orders: Orders Influenza [id number] Immunization Today Z23 - Encounter for immunization Hemoglobin A1c 3 Months R73.02 - Impaired glucose tolerance (oral) Lipid Panel 3 Months E78.00 - Pure hypercholesterolemia, unspecified Comprehensive Met. Panel 3 Months E78.00 - Pure hypercholesterolemia, unspecified Thyroid Stimulating Hormone 3 Months E78.00 - Pure hypercholesterolemia, unspecified Medications: Changed From atorvastatin 10 mg PO DAILY 90 tabs 2RF E78.00 - Pure hypercholesterolemia, unspecified To atorvastatin 20 mg PO DAILY 90 tabs 2RF E78.00 - Pure hypercholesterolemia, unspecified Coding Level of Care Code Est Pt Level 4 (76752) Diagnoses Erosive esophagitis K22.10 Hypercholesterolemia E78.00 Impaired glucose tolerance R73.02 Irritable bowel syndrome with constipation K58.1 Generalized anxiety disorder F41.1 Heart palpitations R00.2 Multiple thyroid nodules E04.2
== END 2023-05-12 15:02 | disposition home or self-care (01) ==
PROVIDERS: PCP Internal Medicine; Visit Provider Internal Medicine
DX: Z23 Encounter for immunization (principal)
CPT/HCPCS: 90471; 90686; 99214

== ENCOUNTER 2023-05-14 13:44 | Outpatient (AMB) | payer OTHER, SELFPAY ==
--- NOTE | 2023-05-14 13:45 | A.OFFVIS_ITS ---
Intake Vital Signs 05/14/23 13:47 Height 5 ft 5 in Weight 150 lb 4 oz BMI 25.0 BP 120/72 Blood Pressure Location Lt brachial Position Sitting Pulse 79 Pulse Source Pulse Oximeter Pulse Oximetry (%) 97 Oxygen Delivery Method Room Air Intake Visit Reasons: 4m follow up dizziness/giddiness /Confirmed Intake Note: Pt presents to office for 4 month follow up of dizziness and cervicalgia. She reports the dizzy spells have become mildly improved. Not much change though. Allergies latex [Latex] Allergy (Mild, Verified 06/05/23 13:33) SWELLING/ITCHING Sulfa (Sulfonamide Antibiotics) Allergy (Mild, Verified 06/05/23 13:33) SWELLING/ITCHING, pruritis sulfamethoxazole [From BACTRIM] Allergy (Unknown, Verified 06/05/23 13:33) ITCHY/HIVES trimethoprim [From BACTRIM] Allergy (Unknown, Verified 06/05/23 13:33) ITCHY/HIVES metoclopramide [From REGLAN] Adverse Reaction (Unknown, Verified 06/05/23 13:33) AGITATION HPI HPI Comments History of Present Illness Details 51 y/o female comes for follow up of olive zuri and dizziness. Pt reports that her migraine and dizziness has improved after chiropractic. However, her allergy symptoms started, it caused headache. She has occipital and frontal headache uses Motrin sometimes, it helped to reduced the headache. Pt's dizziness has improved, much less frequently happens and uses meclizine as needed. But rarely uses. She has not taking baclofen. The home sleep study result was normal. [facility] Medical History (Updated 06/05/23 @ 14:42 by Ana Villasenor NP-Mata) Tachycardia Daytime sleepiness Snoring Migraine Vertigo Cervicalgia Pre-op examination Unspecified Eustachian tube disorder, left ear Acute pharyngitis Urgency of micturition Abdominal pain Dysuria Diarrhea Lightheadedness Dizziness Hematuria Acute conjunctivitis of left eye Wound of right leg Abdominal cramping Allergic conjunctivitis Nephrolithiasis Colitis Interstitial cystitis Chronic cough COVID-19 long hauler COVID-19 Elevated lipase Pain in both knees Heart palpitations Upper abdominal pain Vaginal itching Suprapubic pain Vaginal spotting Hematuria Frequency of micturition Myalgia Post-vaccination reaction Palpitations Bilateral lower extremity pain Hearing deficit Frequency of micturition Toe swelling Toe pain, right Vitamin B12 deficiency Scalp cyst Vitamin D deficiency GERD (gastroesophageal reflux disease) Multiple thyroid nodules Lateral meniscal tear Restrictive lung disease Benign hematuria Hemorrhoids Irritable bowel syndrome Cervical disc herniation Impaired glucose tolerance Migraine Hypercholesterolemia Erosive esophagitis Surgical History Hx of colonoscopy H/O esophagogastroduodenoscopy S/P excision of lipoma Hx of tubal ligation History of lumpectomy of left breast Family History Father Skin cancer Mother Skin cancer High blood pressure Heart problem CVA (cerebral vascular accident) Maternal Grandfather Skin cancer Cancer FH: prostate cancer Brother Schizophrenia Other Mental health problem Social History Household Members: None Housing: Apartment Alcohol intake: never Patient Tobacco Use Status: Former Tobacco user Tobacco use type: Cigarette Years Smoked: quit 2007 e-Cigarette/Vaping Use: Never Used Second Hand Smoke Exposure: No service: No Current occupational status: employed 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 BPPV ? related to cervical spasm Code(s): R42 - Dizziness and giddiness (3) Migraine: Code(s): G43.909 - Migraine, unspecified, not intractable, without status migrainosus (4) Daytime sleepiness: Code(s): R40.0 - Somnolence (5) Snoring: Code(s): R06.83 - Snoring Plan Continue to do chiropractic, and do home PT for neck pain. Continue to take magnesium 400 mg qHS. Advised decreased OTC medication to manage headache. Coding Level of Care Code Est Pt Level 3 (23539) Diagnoses Cervicalgia M54.2 Vertigo R42 Migraine G43.909 Daytime sleepiness R40.0 Snoring R06.83
[2023-05-14 13:47] VITALS: BP 120/72; PULSE 79; O2SAT 97; BMI 25.0
== END 2023-05-14 14:16 | disposition home or self-care (01) ==
PROVIDERS: PCP Internal Medicine; Visit Provider Nurse Practitioner Family
DX: M54.2 Cervicalgia (principal); R42 Dizziness and giddiness; G43.909 Migraine, unspecified, not intractable, without status migrainosus; R40.0 Somnolence; R06.83 Snoring
CPT/HCPCS: 99213

== ENCOUNTER → 2023-05-14 13:44 | Outpatient (BNVA) | payer OTHER, SELFPAY | PROVIDERS: PCP Internal Medicine; Visit Provider Nurse Practitioner Family | DX: R42 Dizziness and giddiness (principal); M54.2 Cervicalgia; G43.909 Migraine, unspecified, not intractable, without status migrainosus; R06.83 Snoring; R40.0 Somnolence | CPT/HCPCS: 99212 ==

== ENCOUNTER 2023-05-21 07:37 | Outpatient (REF) | payer OTHER, SELFPAY ==
[2023-05-21 08:21] LABS: Appearance Urine Clear; Color Urine Yellow; Glucose Urine UA Negative (Negative); Leukocyte Esterase Urine Small (1+) (Negative); Nitrite Urine Negative (Negative); PH 5.5 (5.0-9.0); UMIC TRIGGER UACC YES; Urine Blood Moderate (2+) (Negative); Urine Ketones Negative (Negative); Urine Protein Negative (Neg-Trace)
[2023-05-21 08:40] LABS: Bacteria Urine None Seen (None Seen); Hyaline Casts Urine 0-2 /LPF (0-2); Squamous Epithelial Cell Urine 0-2 /HPF (0-2); UACC Culture Trigger YES; WBC Urine 0-5 /HPF (0-5)
== END 2023-05-21 07:38 | disposition home or self-care (01) ==
LOC: HO.LAB 07:37
PROVIDERS: PCP Internal Medicine; Visit Provider Internal Medicine
DX: E78.00 Pure hypercholesterolemia, unspecified (principal); R73.02 Impaired glucose tolerance (oral); R39.9 Unspecified symptoms and signs involving the genitourinary system
CPT/HCPCS: 81001; 87086

== ENCOUNTER 2023-06-05 13:21 | Outpatient (AMB) | payer OTHER, SELFPAY ==
[2023-06-05 13:30] VITALS: BP 120/72; PULSE 83; BMI 24.9
--- NOTE | 2023-06-05 13:30 | A.OFFVIS_ITS ---
Intake Vital Signs 06/05/23 13:30 Height 5 ft 5 in Weight 149 lb 14.629 oz BMI 24.9 BP 120/72 Blood Pressure Location Lt brachial Position Sitting Pulse 83 Pulse Source Pulse Oximeter Intake Visit Reasons: s/p echo/ holter HS School Resource Officer Required: No Allergies latex [Latex] Allergy (Mild, Verified 06/05/23 13:33) SWELLING/ITCHING Sulfa (Sulfonamide Antibiotics) Allergy (Mild, Verified 06/05/23 13:33) SWELLING/ITCHING, pruritis sulfamethoxazole [From BACTRIM] Allergy (Unknown, Verified 06/05/23 13:33) ITCHY/HIVES trimethoprim [From BACTRIM] Allergy (Unknown, Verified 06/05/23 13:33) ITCHY/HIVES metoclopramide [From REGLAN] Adverse Reaction (Unknown, Verified 06/05/23 13:33) AGITATION Medication List - Last Reconciled 06/05/23 by SANJAY Carbajal atorvastatin 20 mg PO DAILY blood pressure monitor (Blood Pressure Kit) As directed cetirizine 10 mg PO DAILY cholecalciferol (vitamin D3) 50 mcg PO DAILY ciprofloxacin HCl 500 mg PO BID fenofibrate 160 mg PO DAILY fluticasone propionate 50 mcg/actuation 2 sprays intranasal DAILY PRN Lactobacillus acidophilus 100 mg PO DAILY 90 days magnesium oxide 400 mg PO DAILY multivitamin 1 tab PO DAILY ondansetron 4 mg PO Q8H 4 days pantoprazole 40 mg PO DAILY HPI s/p echo/ holter HS HPI Details Christelle is a 52-year-old female with past medical history of hyperlipidemia who is being evaluated for heart palpitations. She recently underwent a Holter monitor and echocardiogram and now presents for follow-up. Today she reports that she had COVID early last week and she noticed heart palpitations at that time. She says she will feel her heart pounding stronger and faster for no obvious reason. It usually happens at rest. She uses her Apple watch to record her heart rate. Whenever she notices palpitation she checks her rate and finds it over 100. She does recall having the heart palpitations when she wore the most recent Holter monitor. No concerning chest discomfort, shortness of breath, dizziness, presyncope, syncope, PND, orthopnea or edema. Has recovered from COVID and now feels back to her normal self. [facility], [facility] Medical History (Updated 06/05/23 @ 14:42 by Ana Villasenor, [employer]IL [employer] PLANT SCIENTIST-C) Tachycardia Daytime sleepiness Snoring Migraine Vertigo Cervicalgia Pre-op examination Unspecified Eustachian tube disorder, left ear Acute pharyngitis Urgency of micturition Abdominal pain Dysuria Diarrhea Lightheadedness Dizziness Hematuria Acute conjunctivitis of left eye Wound of right leg Abdominal cramping Allergic conjunctivitis Nephrolithiasis Colitis Interstitial cystitis Chronic cough COVID-19 long hauler COVID-19 Elevated lipase Pain in both knees Heart palpitations Upper abdominal pain Vaginal itching Suprapubic pain Vaginal spotting Hematuria Frequency of micturition Myalgia Post-vaccination reaction Palpitations Bilateral lower extremity pain Hearing deficit Frequency of micturition Toe swelling Toe pain, right Vitamin B12 deficiency Scalp cyst Vitamin D deficiency GERD (gastroesophageal reflux disease) Multiple thyroid nodules Lateral meniscal tear Restrictive lung disease Benign hematuria Hemorrhoids Irritable bowel syndrome Cervical disc herniation Impaired glucose tolerance Migraine Hypercholesterolemia Erosive esophagitis Surgical History Hx of colonoscopy H/O esophagogastroduodenoscopy S/P excision of lipoma Hx of tubal ligation History of lumpectomy of left breast Family History Father Skin cancer Mother Skin cancer High blood pressure Heart problem CVA (cerebral vascular accident) Maternal Grandfather Skin cancer Cancer FH: prostate cancer Brother Schizophrenia Other Mental health problem Social History Household Members: None Housing: Apartment Alcohol intake: never Patient Tobacco Use Status: Former Tobacco user Tobacco use type: Cigarette Years Smoked: quit 2007 e-Cigarette/Vaping Use: Never Used Second Hand Smoke Exposure: No service: No Current occupational status: employed 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 Cognitive needs: No Hearing needs: No Vision needs: No Review of Systems Const All systems reviewed & are unremarkable except as noted in HPI and below ENT Reports no additional complaints Card Denies chest pain, Denies chest pain at rest, Denies chest pain with activity, Reports rapid heart rate, Denies pedal edema, Denies edema, Denies leg edema, Denies lightheadedness, Denies palpitations, Denies dyspnea, Denies dyspnea on exertion and Denies orthopnea Resp Denies cough, Denies dyspnea and Denies dyspnea on exertion GI Denies hematochezia and Denies change in stool character Musc Denies abnormal gait, Denies limited range of motion, Denies muscle cramps, Denies muscle weakness, Denies numbness, Denies radiating pain into limb, Denies stiffness and Denies tingling Neuro Denies abnormal gait, Denies numbness and Denies tingling Endo Denies palpitations Physical Exam Vital Signs: Last Vital Signs Pulse 83 06/05/23 13:30 BP 120/72 06/05/23 13:30 BMI result Body Mass Index 24.9 Const General: cooperative, healthy appearing, comfortable and no acute distress Orientation/consciousness: patient oriented x3 Neck Neck: Yes normal visual inspection Resp Effort & Inspection: normal respiratory effort Auscultation: clear to auscultation bilaterally, no crackles, no rales, no rhonchi and no wheezes Cardio Jugular venous distension: no JVD Rate: regular rate Rhythm: regular rhythm Heart sounds: S1 normal heart sound present, S2 normal heart sound present, no murmurs and no rubs Neuro General: patient oriented x3 Extrem General: Yes normal to inspection, No no pedal edema and No calf tenderness Psych Appearance: grossly normal Mental Status: mental status grossly normal Speech and movement: Normal speech and movement present Assessment & Plan Assessment & Plan (1) Heart palpitations: Code(s): R00.2 - Palpitations Plan: Reported heart palpitations, random, feels like heart beating fast. No shortness of breath or lightheadedness at that time. Uses her Apple watch to record heart rate and says she is seen is high as 120s. Her last episode of palpitations was when she was sick last week with COVID. She has been doing well since then. She has undergone a Holter monitor 02/07/2023 for 3 days which showed normal sinus rhythm with average heart rate 73 beats per minute, very rare ectopy, symptoms correlated with sinus rhythm or sinus tach. She continue to report symptoms and repeat Holter monitor was done on 05/07/2023 for 5 days. It was ordered for 14 days however says she became very itchy from the patch and had to remove it. Holter shows sinus rhythm with average heart rate 79 beats per minute, rare ectopy, symptoms correlated with mild sinus tachycardia. Echocardiogram done 05/07/2023 showed EF 68%, no valve abnormalities or reported wall motion abnormalities. Spent time reviewing results with her in detail. Offered reassurance. She is likely feeling sinus tachycardia or occasional early systole is. Reviewed need for good hydration, avoidance of stimulants, physical activity as tolerated. No further testing needed at this time. She will continue to monitor symptoms and cardiology follow-up will be as needed. (2) Chest pain: Code(s): R07.9 - Chest pain, unspecified Qualifiers: Chest pain type: other chest pain Qualified Code(s): R07.89 - Other chest pain Plan: Prior reports of chest discomfort. She did undergo a stress test on 02/07/2023 showing exercise 10 minutes with chest tightness and mild shortness of breath, no EKG changes of ischemia. She then underwent an exercise stress echo on 03/17/2023 with exercise 9.5 minutes with mild shortness of breath, no chest discomfort, no EKG changes and no echo evidence of ischemia. Today she reports she has not been having chest discomfort like previous. Signs symptoms of angina reviewed with her. Cardiology follow-up as needed Coding Level of Care Code Est Pt Level 3 (79377) Diagnoses Heart palpitations R00.2 Other chest pain R07.89 Chest pain type: other chest pain Time Spent (min) 22
== END 2023-06-05 14:01 | disposition home or self-care (01) ==
PROVIDERS: PCP Internal Medicine; Visit Provider Nurse Practitioner Family
DX: R00.2 Palpitations (principal); R07.89 Other chest pain
CPT/HCPCS: 99213

== ENCOUNTER → 2023-06-05 13:21 | Outpatient (BNVA) | payer OTHER, SELFPAY | PROVIDERS: PCP Internal Medicine; Visit Provider Nurse Practitioner Family | DX: R00.2 Palpitations (principal); R07.89 Other chest pain | CPT/HCPCS: 99212 ==

== ENCOUNTER 2023-06-26 11:31 | Outpatient (AMB) | payer OTHER, SELFPAY ==
--- NOTE | 2023-06-26 11:35 | A.OFFVIS_ITS ---
Intake Intake Visit Reasons: 6m/IC Intake Note: Patient presents today for a follow-up on 6M IC: Meds- Estradiol & Vistaril Allergies to Antibiotic- No Known Allergies Blood Thinner- None PVR- 0 mL Quarter Backer Required: No Accompanied by: Self / Same As Patient Allergies latex [Latex] Allergy (Mild, Verified 06/26/23 11:36) SWELLING/ITCHING Sulfa (Sulfonamide Antibiotics) Allergy (Mild, Verified 06/26/23 11:36) SWELLING/ITCHING, pruritis sulfamethoxazole [From BACTRIM] Allergy (Unknown, Verified 06/26/23 11:36) ITCHY/HIVES trimethoprim [From BACTRIM] Allergy (Unknown, Verified 06/26/23 11:36) ITCHY/HIVES metoclopramide [From REGLAN] Adverse Reaction (Unknown, Verified 06/26/23 11:36) AGITATION Medication List - Last Reconciled 06/26/23 by Andressa Dawson MD atorvastatin 20 mg PO DAILY blood pressure monitor (Blood Pressure Kit) As directed cetirizine 10 mg PO DAILY cholecalciferol (vitamin D3) 50 mcg PO DAILY fenofibrate 160 mg PO DAILY fluticasone propionate 50 mcg/actuation 2 sprays intranasal DAILY PRN Lactobacillus acidophilus 100 mg PO DAILY 90 days magnesium oxide 400 mg PO DAILY multivitamin 1 tab PO DAILY ondansetron 4 mg PO Q8H 4 days pantoprazole 40 mg PO DAILY HPI HPI Comments History of Present Illness Details Christelle is a 52-year-old female who presents today to the office for a follow-up. 06/26/23-- Christelle is followed for LUTS due to interstitial cystitis 52-year-old female followed for chronic IC, she has symptoms of bladder pressure and urgency. PMH--hypercholesteremia, impaired glucose tolerance, GERD, generalized anxiety disorder, IBS and chronic constipation. She has a h/o cigarette use having quit 14 years ago.? ? She is taking Tums before some of her meals. Vistaril 25 mg prescribed, pt states that it worked but has some drowsiness. LV: 10/11/22--Discussed cont vistaril but decrease dose from 25 to 10 mg. 06/26/23- Today she states that a few mo nths ago she began having palpitations so she stopped all her meds including vistaril, she was evaluated by cardiology and was told every thing was fine cardiac meyer, she was not started on any new heart meds. She did not resume the vistaril and does not want to go back on it due to the side effect of drowsiness. I discussed I will trial uribel. 06/26/2023: Evaluation today?UA-- Leukoc ytes: negative; blood: 1 +; bladder scan PVR: 0 mL. Review of chart: s/p cysto/hydrodistension-- findings- mild glomerulations. Imaging: Renal ultrasound - 05/09/22-no hydronephrosis and no renal calculi bilaterally. 06/26/2023: Plan: To have her use uribel one 3 times a day as needed for bladder pressure and urgency. Follow-up in 6 months. [facility] Medical History Tachycardia Daytime sleepiness Snoring Migraine Vertigo Cervicalgia Pre-op examination Unspecified Eustachian tube disorder, left ear Acute pharyngitis Urgency of micturition Abdominal pain Dysuria Diarrhea Lightheadedness Dizziness Hematuria Acute conjunctivitis of left eye Wound of right leg Abdominal cramping Allergic conjunctivitis Nephrolithiasis Colitis Interstitial cystitis Chronic cough COVID-19 long hauler COVID-19 Elevated lipase Pain in both knees Heart palpitations Upper abdominal pain Vaginal itching Suprapubic pain Vaginal spotting Hematuria Frequency of micturition Myalgia Post-vaccination reaction Palpitations Bilateral lower extremity pain Hearing deficit Frequency of micturition Toe swelling Toe pain, right Vitamin B12 deficiency Scalp cyst Vitamin D deficiency GERD (gastroesophageal reflux disease) Multiple thyroid nodules Lateral meniscal tear Restrictive lung disease Benign hematuria Hemorrhoids Irritable bowel syndrome Cervical disc herniation Impaired glucose tolerance Migraine Hypercholesterolemia Erosive esophagitis Surgical History Hx of colonoscopy H/O esophagogastroduodenoscopy S/P excision of lipoma Hx of tubal ligation History of lumpectomy of left breast Family History Father Skin cancer Mother Skin cancer High blood pressure Heart problem CVA (cerebral vascular accident) Maternal Grandfather Skin cancer Cancer FH: prostate cancer Brother Schizophrenia Other Mental health problem Social History Household Members: None Housing: Apartment Alcohol intake: never Patient Tobacco Use Status: Former Tobacco user Tobacco use type: Cigarette Years Smoked: quit 2007 e-Cigarette/Vaping Use: Never Used Second Hand Smoke Exposure: No service: No Current occupational status: employed 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 Cognitive needs: No Hearing needs: No Vision needs: No Review of Systems Const All systems reviewed & are unremarkable except as noted in HPI and below Reports no additional complaints Eyes Reports no additional complaints ENT Reports no additional complaints Card Denies dyspnea Resp Denies cough and Denies dyspnea GI Reports no additional complaints Reports no additional complaints Musc Reports no additional complaints Skin/Breast Denies rash and Denies unusual bruising Neuro Reports no additional complaints Psych Reports no additional complaints Endo Reports no additional complaints Oscar/Lymph Reports no additional complaints Aller/Immun Reports no additional complaints Office Procedures Post Void Residual Post Residual Void Post Void Residual (PVR): 0 [id number] Void Residual by ultrasound Results AMB Urinalysis, Automated UA Leukoctes 0 Stephanie/uL Last Edit by MARLINE Clarke on 06/26/23 11:47 UA Nitrite Negative Last Edit by MARLINE Clarke on 06/26/23 11:47 UA Urobilinogen 0.2 mg/dL Last Edit by MARLINE Clarke on 06/26/23 11:4 7 UA Protein 0 mg/dL Last Edit by MARLINE Clarke on 06/26/23 11:47 UA pH 7.0 Last Edit by MARLINE Clarke on 06/26/23 11:47 UA Blood 25 Vito/uL Last Edit by MARLINE Clarke on 06/26/23 11:47 1+ Erika Espino 06/26/23 11:47 UA Specific [place] 1.010 Last Edit by MARLINE Clarke on 06/26/23 11: 47 UA Ketone Negative Last Edit by MARLINE Clarke on 06/26/23 11:47 UA Bilirubin 0 mg/dL Last Edit by MARLINE Clarke on 06/26/23 11:47 UA Glucose 0 mg/dL Last Edit by MARLINE Clarke on 06/26/23 11:47 Results Reviewed Results Reviewed: Laboratory Last Values Urine pH (Auto) 7.0 06/26/23 11:39 Specific [place] (Auto) 1.010 06/26/23 11:39 Urine Protein (Auto) 0 mg/dL 06/26/23 11:39 Glucose (UA)(Auto) 0 mg/dL 06/26/23 11:39 Urine Ketones (Auto) Negative 06/26/23 11:39 Urine Blood (Auto) 25 Vito/uL 06/26/23 11:39 Urine Nitrite (Auto) Negative 06/26/23 11:39 Urine Bilirubin (Auto) 0 mg/dL 06/26/23 11:39 Urine Urobilinogen (Auto) 0.2 mg/dL 06/26/23 11:39 Leukocyte Esterase (Auto) 0 Stephanie/uL 06/26/23 11:39 Assessment & Plan Assessment & Plan (1) Interstitial cystitis: Code(s): N30.10 - Interstitial cystitis (chronic) without hematuria (2) Urgency of micturition: Code(s): R39.15 - Urgency of urination (3) Urinary incontinence: Code(s): R32 - Unspecified urinary incontinence Plan 06/26/2023: Evaluation today?UA-- Leukocytes: negative; blood: 1 +; bladder scan PVR: 0 mL. 06/26/2023: Plan: To have her use uribel one 3 times a day as needed for bladder pressure and urgency. Follow-up in 6 months. Orders: Orders AMB Urinalysis Automated 06/26/23 Z13.9 - Encounter for screening, unspecified AMB Post Void Residual by ultrasound 06/26/23 N39.8 - Other specified disorders of urinary system Medications: Mark [id number] 118-10-40.8-36 mg (Uribel) administer with plenty of fluids 1 tab PO TID 90 caps 1RF Patient Instructions: The patient had an opportunity to ask questions regarding treatment plan. All questions were answered. Imaging, Laboratory studies and physical exam results were discussed and reviewed in detail. No major barriers to understanding were identified. The patient expressed understanding and agreement with the above treatment plan. The patient is aware they should contact our office by phone for worsening of their current condition or the appearance of new symptoms. Compliance is encouraged with any medications and followup testing that is ordered. It is a privilege to be allowed the opportunity to participate in the urologic care of your patient. If you have any questions or concerns regarding treatment for the above conditions please do not hesitate to contact me. The office telephone contact is [phone]. This note is constructed in part using voice recognition software. While every effort has been made to ensure accuracy transcription coordinator errors may have been included. Yours sincerely, Andressa Dawson MD Coding Level of Care Code Est Pt Level 4 (14164) Diagnoses Interstitial cystitis N30.10 Urgency of micturition R39.15 Urinary incontinence R32 CPT Codes Post Residual Void - PVR CPT Code: 26671-[id number] Void Residual by ultrasound ([id number])
== END 2023-06-26 12:11 | disposition home or self-care (01) ==
PROVIDERS: PCP Internal Medicine; Visit Provider Urology
DX: N30.10 Interstitial cystitis (chronic) without hematuria (principal); R39.15 Urgency of urination; R32 Unspecified urinary incontinence
CPT/HCPCS: 99214

== ENCOUNTER → 2023-06-26 11:31 | Outpatient (BNVA) | payer OTHER, SELFPAY | PROVIDERS: PCP Internal Medicine; Visit Provider Urology | DX: N30.10 Interstitial cystitis (chronic) without hematuria (principal); R32 Unspecified urinary incontinence; R39.15 Urgency of urination | CPT/HCPCS: 51798; 81003; 99212 ==

== ENCOUNTER 2023-07-04 08:09 | Outpatient (AMB) | payer OTHER, SELFPAY ==
[2023-07-04 09:33] VITALS: BP 110/64; PULSE 74; TEMP 36.6; O2SAT 98; BMI 24.8
--- NOTE | 2023-07-04 09:33 | AM.OFFWIN_ITS ---
Intake Vital Signs 07/04/23 09:33 Height 5 ft 5 in Weight 67.642 kg BMI 24.8 BP 110/64 Blood Pressure Location Rt brachial Position Sitting Pulse 74 Pulse Source Pulse Oximeter Temp 97.8 F Temp Source Temporal Artery Scan Pulse Oximetry (%) 98 Oxygen Delivery Method Room Air Intake Visit Reasons: EP stomach pain only Intake Note: pt is here for c/o burning and itching vaginal area Patient Tobacco Use Status: Former Tobacco user Allergies latex [Latex] Allergy (Mild, Verified 07/04/23 09:33) SWELLING/ITCHING Sulfa (Sulfonamide Antibiotics) Allergy (Mild, Verified 07/04/23 09:33) SWELLING/ITCHING, pruritis sulfamethoxazole [From BACTRIM] Allergy (Unknown, Verified 07/04/23 09:33) ITCHY/HIVES trimethoprim [From BACTRIM] Allergy (Unknown, Verified 07/04/23 09:33) ITCHY/HIVES metoclopramide [From REGLAN] Adverse Reaction (Unknown, Verified 07/04/23 09:33) AGITATION Do you need a note to return to daycare/school/sports/work: Yes HPI HPI Comments History of Present Illness Details [id number] 52-year-old female presents with intermi ttent abdominal pain/cramping, urinary frequency, urgency, burning upon urination all ongoing for the past month, not improving, she reports a little over a month ago she was on antibiotics they did not help much however at that same time she had COVID-19. She is followed by a urologist and will follow up with them after today's visit. Patient denies blood in urine, nausea, vomiting, headache, vision changes, dizziness, weakness, recent sick contacts. Physical exam benign. No abdominal tenderness, no CVA tenderness History and physical exam concerning for possible UTI versus cystitis. Unlikely pyelonephritis, obstructing uropathy, acute abdomen. No signs of appendicitis, diverticulitis, cholecystitis. Plan at this time obtained a urine which shows leukocyte esterases and blood likely cystitis with or without bacterial infection will prescribe antibiotics and Pyridium. Will have her follow-up with Urology. Educated patient on diagnosis and treatment plan, answered all question, patient verbalizes understa nding. At this time patient will be discharged home, advised to return with new or worsening symptoms. Educated on worrisome signs and symptoms and when to return. At this time I feel comfortable discharge home. [facility] Medical History Tachycardia Daytime sleepiness Snoring Migraine Vertigo Cervicalgia Pre-op examination Unspecified Eustachian tube disorder, left ear Acute pharyngitis Urgency of micturition Abdominal pain Dysuria Diarrhea Lightheadedness Dizziness Hematuria Acute conjunctivitis of left eye Wound of right leg Abdominal cramping Allergic conjunctivitis Nephrolithiasis Colitis Interstitial cystitis Chronic cough COVID-19 long hauler COVID-19 Elevated lipase Pain in both knees Heart palpitations Upper abdominal pain Vaginal itching Suprapubic pain Vaginal spotting Hematuria Frequency of micturition Myalgia Post-vaccination reaction Palpitations Bilateral lower extremity pain Hearing deficit Frequency of micturition Toe swelling Toe pain, right Vitamin B12 deficiency Scalp cyst Vitamin D deficiency GERD (gastroesophageal reflux disease) Multiple thyroid nodules Lateral meniscal tear Restrictive lung disease Benign hematuria Hemorrhoids Irritable bowel syndrome Cervical disc herniation Impaired glucose tolerance Migraine Hypercholesterolemia Erosive esophagitis Surgical History Hx of colonoscopy H/O esophagogastroduodenoscopy S/P excision of lipoma Hx of tubal ligation History of lumpectomy of left breast Family History Father Skin cancer Mother Skin cancer High blood pressure Heart problem CVA (cerebral vascular accident) Maternal Grandfather Skin cancer Cancer FH: prostate cancer Brother Schizophrenia Other Mental health problem Social History Household Members: None Housing: Apartment Alcohol intake: never Patient Tobacco Use Status: Former Tobacco user Tobacco use type: Cigarette Years Smoked: quit 2007 e-Cigarette/Vaping Use: Never Used Second Hand Smoke Exposure: No service: No Current occupational status: employed 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 Cognitive needs: No Hearing needs: No Vision needs: No Review of Systems Const Details: Constitutional : No Weight loss, No Fever, No Chills, No Fatigue, No Malaise ENT/Mouth : No sore throat, No Rhinorrhea Eyes: No Eye Pain, No Swelling, No Redness Cardiovascular : No Chest Pain, No SOB, No Dyspnea on Exertion, No Orthopnea, No Edema, No Palpitations Respiratory : No Cough, No Sputum, No Wheezing Gastrointestinal : No Nausea, No Vomiting, No Diarrhea, No Constipation, No abdominal Pain, No Hematochezia, No Melena Genitourinary : + Dysuria, + Urinary Frequency, No Hematuria, Musculoskeletal : No joint pain, No Myalgias, No Joint Swelling Skin : No Skin Lesions, No rash Neuro : No Weakness, No Numbness, No Dizziness, No Headache Psych : No Anxiety/Panic, No Depression All other systems reviewed and are negative All systems reviewed & are unremarkable except as noted in HPI and below Physical Exam Vital Signs: Last Vital Signs Temp 97.8 F 07/04/23 09:33 Pulse 74 07/04/23 09:33 BP 110/64 07/04/23 09:33 Pulse Ox 98 07/04/23 09:33 Oxygen Delivery Method Room Air 07/04/23 09:33 BMI result Body Mass Index 24.8 vss Appearance: Alert.? Oriented X3.? No acute distress.? Head: Normocephalic, atraumatic, no step-offs or deformities Eyes: Pupils equal, round and reactive to light.? Neck: Normal inspection.? Neck supple.? CVS: Normal heart rate and rhythm.? Pulses normal.? Respiratory: No respiratory distress.? Breath sounds normal.? Abdomen: Soft and nontender.?Negative rosving, mcburneys, murphys Skin: Skin warm and dry.? Normal skin color.? Normal skin turgor.? Extremities: No lower extremity edema.? No calf ttp. 5/5 strength to bilateral upper and lower extremities Back: No CVA tenderness bilaterally Neuro: Oriented X 3.? No motor deficit.? No sensory deficit. CN 2-12 intact Assessment & Plan Assessment & Plan (1) Cystitis: Code(s): N30.90 - Cystitis, unspecified without hematuria Plan Take your medications as prescribed. If you were prescribed antibiotics today, it is important that you take your medication to their entirety, do not skip any doses, do not finish them early. Follow-up with your primary care provider this week. Return to the emergency department with new or worsening symptoms. Such as fevers, chills, chest pain, shortness of breath, nausea, vomiting, dizziness, headache, vision changes, lethargy In case of emergency call 911 Medications: New cefuroxime axetil 250 mg PO BID 7 days 14 tabs 0RF phenazopyridine (Pyridium) 200 mg PO TID 6 doses 6 tabs 0RF Coding Level of Care Code Est Pt Level 3 (96659) Diagnoses Cystitis N30.90
== END 2023-07-04 10:52 | disposition home or self-care (01) ==
PROVIDERS: PCP Internal Medicine; Visit Provider Physician Assistant
DX: N30.90 Cystitis, unspecified without hematuria (principal)
CPT/HCPCS: 81003; 99213

== ENCOUNTER 2023-07-15 08:03 | Outpatient (AMB) | payer OTHER, SELFPAY ==
[2023-07-15 08:27] VITALS: BP 104/80; PULSE 80; TEMP 36.6; O2SAT 98; BMI 24.6
--- NOTE | 2023-07-15 08:27 | MHC.OFFWIV ---
Intake Vital Signs 07/15/23 08:27 Height 5 ft 5 in Weight 148 lb BMI 24.6 BP 104/80 Blood Pressure Location Rt brachial Position Sitting Pulse 80 Pulse Source Pulse Oximeter Temp 97.9 F Temp Source Oral Pulse Oximetry (%) 98 Oxygen Delivery Method Room Air Intake Visit Reasons: EP abdominal pain into back [id number] Intake Note: Pt is here today c/o abdominal pain into lower back Patient Tobacco Use Status: Former Tobacco user Allergies latex [Latex] Allergy (Mild, Verified 07/15/23 09:06) SWELLING/ITCHING Sulfa (Sulfonamide Antibiotics) Allergy (Mild, Verified 07/15/23 09:06) SWELLING/ITCHING, pruritis sulfamethoxazole [From BACTRIM] Allergy (Unknown, Verified 07/15/23 09:06) ITCHY/HIVES trimethoprim [From BACTRIM] Allergy (Unknown, Verified 07/15/23 09:06) ITCHY/HIVES metoclopramide [From REGLAN] Adverse Reaction (Unknown, Verified 07/15/23 09:06) AGITATION Medication List - Last Reconciled 07/15/23 by Kane Mobley MD atorvastatin 20 mg PO DAILY blood pressure monitor (Blood Pressure Kit) As directed cetirizine 10 mg PO DAILY cholecalciferol (vitamin D3) 50 mcg PO DAILY fenofibrate 160 mg PO DAILY fluconazole 150 mg PO Q3D 2 doses fluticasone propionate 50 mcg/actuation 2 sprays intranasal DAILY PRN Lactobacillus acidophilus 100 mg PO DAILY 90 days magnesium oxide 400 mg PO DAILY natalis-phsal-hyo 118-10-40.8-36 mg (Uribel) 1 tab PO TID multivitamin 1 tab PO DAILY ondansetron 4 mg PO Q8H 4 days pantoprazole 40 mg PO DAILY Do you need a note to return to daycare/school/sports/work: No HPI EP abdominal pain into back [id number] HPI Details 52-year-old female presents to the office for a sick visit. Patient is complaining of nonspecific abdominal pain. She was seen for a bladder infection last week and has completed her antibiotic course. Complaining of itching in the vaginal area without any discharge. She would like to get imaging of her abdomen done. No change in bowel habits. No diarrhea. No nausea or vomiting. No fevers or chills. COUNTS INCLUDE 234 BEDS AT THE [facility] Medical History Tachycardia Daytime sleepiness Snoring Migraine Vertigo Cervicalgia Pre-op examination Unspecified Eustachian tube disorder, left ear Acute pharyngitis Urgency of micturition Abdominal pain Dysuria Diarrhea Lightheadedness Dizziness Hematuria Acute conjunctivitis of left eye Wound of right leg Abdominal cramping Allergic conjunctivitis Nephrolithiasis Colitis Interstitial cystitis Chronic cough COVID-19 long hauler COVID-19 Elevated lipase Pain in both knees Heart palpitations Upper abdominal pain Vaginal itching Suprapubic pain Vaginal spotting Hematuria Frequency of micturition Myalgia Post-vaccination reaction Palpitations Bilateral lower extremity pain Hearing deficit Frequency of micturition Toe swelling Toe pain, right Vitamin B12 deficiency Scalp cyst Vitamin D deficiency GERD (gastroesophageal reflux disease) Multiple thyroid nodules Lateral meniscal tear Restrictive lung disease Benign hematuria Hemorrhoids Irritable bowel syndrome Cervical disc herniation Impaired glucose tolerance Migraine Hypercholesterolemia Erosive esophagitis Surgical History Hx of colonoscopy H/O esophagogastroduodenoscopy S/P excision of lipoma Hx of tubal ligation History of lumpectomy of left breast Family History Father Skin cancer Mother Skin cancer High blood pressure Heart problem CVA (cerebral vascular accident) Maternal Grandfather Skin cancer Cancer FH: prostate cancer Brother Schizophrenia Other Mental health problem Social History Household Members: None Housing: Apartment Alcohol intake: never Patient Tobacco Use Status: Former Tobacco user Tobacco use type: Cigarette Years Smoked: quit 2007 e-Cigarette/Vaping Use: Never Used Second Hand Smoke Exposure: No service: No Current occupational status: employed 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 Cognitive needs: No Hearing needs: No Vision needs: No Physical Exam Vital Signs: Last Vital Signs Temp 97.9 F 07/15/23 08:27 Pulse 80 07/15/23 08:27 BP 104/80 07/15/23 08:27 Pulse Ox 98 07/15/23 08:27 Oxygen Delivery Method Room Air 07/15/23 08:27 BMI result Body Mass Index 24.6 Const General: cooperative and healthy appearing Nutritional Appearance: well nourished Orientation/consciousness: patient oriented x3 Limitations: no limitations HEENT Head: Yes normal to inspection Eyes General: appearance normal, both eyes and all related structures Neck Neck: Yes normal visual inspection Chest Chest palpation & inspection: normal palpation of entire chest wall Resp Effort & Inspection: normal respiratory effort GI Other: Bowel sounds are heard all over. No rebound tenderness. No discomfort. Inspection: Yes normal to inspection Neuro General: patient oriented x3 Results AMB Urinalysis, Automated UA Leukoctes 0 Stephanie/uL Last Edit by Monik Keller CMA on 07/15/23 08:42 UA Nitrite Negative Last Edit by Monik Keller CMA on 07/15/23 08:42 UA Urobilinogen 0.2 mg/dL Last Edit by Monik Keller CMA on 07/15/23 08:42 UA Protein 0 mg/dL Last Edit by Monik Keller CMA on 07/15/23 08:42 UA pH 7.0 Last Edit by Monik Keller CMA on 07/15/23 08:42 UA Blood 25 Vito/uL Last Edit by Monik Keller CMA on 07/15/23 08:42 UA Specific [place] 1.020 Last Edit by Monik Keller CMA on 07/15/23 08:42 UA Ketone Negative Last Edit by Monik Keller CMA on 07/15/23 08:42 UA Bilirubin 0 mg/dL Last Edit by Monik Keller CMA on 07/15/23 08:42 UA Glucose 0 mg/dL Last Edit by Monik Keller CMA on 07/15/23 08:42 Results Reviewed Results Reviewed: Laboratory Last Values Urine pH (Auto) 7.0 07/15/23 08:33 Specific [place] (Auto) 1.020 07/15/23 08:33 Urine Protein (Auto) 0 mg/dL 07/15/23 08:33 Glucose (UA)(Auto) 0 mg/dL 07/15/23 08:33 Urine Ketones (Auto) Negative 07/15/23 08:33 Urine Blood (Auto) 25 Vito/uL 07/15/23 08:33 Urine Nitrite (Auto) Negative 07/15/23 08:33 Urine Bilirubin (Auto) 0 mg/dL 07/15/23 08:33 Urine Urobilinogen (Auto) 0.2 mg/dL 07/15/23 08:33 Leukocyte Esterase (Auto) 0 Stephanie/uL 07/15/23 08:33 Assessment & Plan Assessment & Plan (1) Abdominal pain: Code(s): R10.9 - Unspecified abdominal pain Plan 20 minutes spent reviewing her medical record. Ultrasound was done last year which was unremarkable. Patient also had a CT scan of the abdomen and pelvis in 2021 and had diverticulosis. Blood work done in April 2023 was unremarkable except for elevated cholesterol. Her physical exam is unremarkable. Diflucan for vaginal itching given. At this point no imaging is necessary. Should symptoms worsen she should call her primary care provider. Orders: Orders AMB Urinalysis Automated Today Z13.9 - Encounter for screening, unspecified Shila Forbes PA-C Medications: New fluconazole 150 mg PO Q3D 2 doses 2 tabs 0RF Kane Mobley MD Refilled ebengfdh-[id number]-[id number] 118-10-40.8-36 mg (Uribel) administer with plenty of fluids 1 tab PO TID 90 caps 1RF Shila Forbes PA-C Coding Level of Care Code Est Pt Level 4 (12310) Diagnoses Abdominal pain R10.9
== END 2023-07-15 09:11 | disposition home or self-care (01) ==
PROVIDERS: PCP Internal Medicine; Visit Provider Internal Medicine
DX: R10.9 Unspecified abdominal pain (principal)
CPT/HCPCS: 81003; 99214

== ENCOUNTER 2023-08-15 06:56 | Outpatient (REF) | payer OTHER, SELFPAY ==
[2023-08-15 07:39] LABS: Appearance Urine Clear; Color Urine Yellow; Glucose Urine UA Negative (Negative); Leukocyte Esterase Urine Small (1+) (Negative); Nitrite Urine Negative (Negative); UMIC TRIGGER UACC YES; Urine Blood Moderate (2+) (Negative); Urine Ketones Negative (Negative); Urine Protein Negative (Neg-Trace)
[2023-08-15 07:45] LABS: Bacteria Urine None Seen (None Seen); Hyaline Casts Urine 0-2 /LPF (0-2); Squamous Epithelial Cell Urine 0-2 /HPF (0-2); UACC Culture Trigger YES
[2023-08-15 07:59] LABS: Estimated Average Glucose 114 mg/dL; Hemoglobin A1c % 5.6 % (<6.0)
[2023-08-15 08:13] LABS: Alanine Aminotransferase 17 U/L (0-31); Albumin Level 4.2 g/dL (3.5-5.0); Alkaline Phosphatase 74 U/L (39-117); Anion Gap 12 (12-20); Aspartate Amino Transferase 17 U/L (5-31); Bilirubin Total 0.5 mg/dL (0.0-1.0); Blood Urea Nitrogen 16 mg/dL (9-16); Calcium 9.9 mg/dL (8.4-10.2); Carbon Dioxide 29 mmol/L (22-29); Chloride 106 mmol/L (96-108); Cholesterol 203 mg/dL (<200); Estimated Glomerular Filt Rate > 60; Glucose Random 99 mg/dL (60-115); HDL Cholesterol 50 mg/dL (>40); LDL Cholesterol Calculated 118 mg/dL (<100); Sodium 143 mmol/L (135-145); Total Protein 7.5 g/dL (6.5-8.0); Triglycerides 176 mg/dL (<150)
[2023-08-15 08:29] LABS: Thyroid Stimulating Hormone 1.69 uIU/mL (0.32-4.0)
== END 2023-08-15 06:57 | disposition home or self-care (01) ==
LOC: HO.LAB 06:56
PROVIDERS: PCP Internal Medicine; Visit Provider Internal Medicine
DX: E78.00 Pure hypercholesterolemia, unspecified (principal); R73.02 Impaired glucose tolerance (oral); N30.10 Interstitial cystitis (chronic) without hematuria; R39.9 Unspecified symptoms and signs involving the genitourinary system
CPT/HCPCS: 36415; 80053; 80061; 81001; 83036; 84443; 87086

== ENCOUNTER 2023-08-18 13:19 | Outpatient (AMB) | payer OTHER, SELFPAY ==
[2023-08-18 13:20] VITALS: BP 100/68; PULSE 63; O2SAT 99; BMI 25.1
--- NOTE | 2023-08-18 13:20 | MHC.PC.OV ---
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: No Allergies latex [Latex] Allergy (Mild, Verified 08/18/23 13:21) SWELLING/ITCHING Sulfa (Sulfonamide Antibiotics) Allergy (Mild, Verified 08/18/23 13:21) SWELLING/ITCHING, pruritis sulfamethoxazole [From BACTRIM] Allergy (Unknown, Verified 08/18/23 13:21) ITCHY/HIVES trimethoprim [From BACTRIM] Allergy (Unknown, Verified 08/18/23 13:21) ITCHY/HIVES metoclopramide [From REGLAN] Adverse Reaction (Unknown, Verified 08/18/23 13:21) AGITATION Medication List - Last Reconciled 08/18/23 by Gigi Barrow MD atorvastatin 20 mg PO DAILY blood pressure monitor (Blood Pressure Kit) As directed cetirizine 10 mg PO DAILY cholecalciferol (vitamin D3) 50 mcg PO DAILY fenofibrate 160 mg PO DAILY fluconazole 150 mg PO Q3D 2 doses fluticasone propionate 50 mcg/actuation 2 sprays intranasal DAILY PRN Lactobacillus acidophilus 100 mg PO DAILY 90 days magnesium oxide 400 mg PO DAILY uyen-phsal-hyo 118-10-40.8-36 mg (Uribel) 1 tab PO TID multivitamin 1 tab PO DAILY ondansetron 4 mg PO Q8H 4 days pantoprazole 40 mg PO DAILY Tobacco use date assessed: 08/18/23 Dental Screening Dental Screen Date: 08/18/23 HPI cholesterol HPI Details 52-year-old female with erosive esophagitis hypercholesterolemia impaired glucose tolerance generalized anxiety disorder and irritable bowel syndrome coming in for follow-up. Last seen in April 2023 mammogram is due colonoscopy 2018. Went into the walk-in clinic June 2023 for abdominal pain patient was given fluconazole for vaginal itching and before that diagnosis of s cystitis treated with cefuroxime 250 twice a day and Pyridium. Patient did see Urology in May diagnosis of interstitial cystitis has had hydrodistention and p.r.n. Uribel. Patient was concerned about palpitations and was referred to Cardiology Holter done January 2023 normal sinus rhythm. Patient was also seen by Neurology for migraine and dizziness magnesium recommended. complains of bilateral shoulder and L hip area and neck area patient states getting very depressed and was asking for help when we did refer her she did not want over the phone. [facility] Medical History Tachycardia Daytime sleepiness Snoring Migraine Vertigo Cervicalgia Pre-op examination Unspecified Eustachian tube disorder, left ear Acute pharyngitis Urgency of micturition Abdominal pain Dysuria Diarrhea Lightheadedness Dizziness Hematuria Acute conjunctivitis of left eye Wound of right leg Abdominal cramping Allergic conjunctivitis Nephrolithiasis Colitis Interstitial cystitis Chronic cough COVID-19 long hauler COVID-19 Elevated lipase Pain in both knees Heart palpitations Upper abdominal pain Vaginal itching Suprapubic pain Vaginal spotting Hematuria Frequency of micturition Myalgia Post-vaccination reaction Palpitations Bilateral lower extremity pain Hearing deficit Frequency of micturition Toe swelling Toe pain, right Vitamin B12 deficiency Scalp cyst Vitamin D deficiency GERD (gastroesophageal reflux disease) Multiple thyroid nodules Lateral meniscal tear Restrictive lung disease Benign hematuria Hemorrhoids Irritable bowel syndrome Cervical disc herniation Impaired glucose tolerance Migraine Hypercholesterolemia Erosive esophagitis Surgical History Hx of colonoscopy H/O esophagogastroduodenoscopy S/P excision of lipoma Hx of tubal ligation History of lumpectomy of left breast Family History Father Skin cancer Mother Skin cancer High blood pressure Heart problem CVA (cerebral vascular accident) Maternal Grandfather Skin cancer Cancer FH: prostate cancer Brother Schizophrenia Other Mental health problem Social History Household Members: None Housing: Apartment Alcohol intake: never Patient Tobacco Use Status: Former Tobacco user Tobacco use type: Cigarette Years Smoked: quit 2007 e-Cigarette/Vaping Use: Never Used Second Hand Smoke Exposure: No service: No Current occupational status: employed 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 How often do you have a drink containing alcohol?: Monthly or less 2. How many drinks containing alcohol do you have on a typical day when you are drinking?: 1 or 2 Total Score: 1 Score Reviewed/Action Taken: No PACO-7 AMB Questionnaire PACO-7 Date PACO - 7 assessed: 08/28/22 Source: Developed by Drs. Bill Morris, Chiquis Webster, Duke Madera and colleagues, with an educational claudia from [employer]. Physical exam (Primary Care) Vital Signs: Last Vital Signs Pulse 63 08/18/23 13:20 BP 100/68 08/18/23 13:20 Pulse Ox 99 08/18/23 13:20 Oxygen Delivery Method Room Air 08/18/23 13:20 BMI result Body Mass Index 25.1 Tobacco/Smoking Status: Tobacco use Status Tobacco use date assessed 08/18/23 08/18/23 13:21 Patient Tobacco Use Status Former Tobacco user 08/18/23 13:21 Tobacco use type Cigarette 08/18/23 13:21 e-Cigarette/Vaping Use Never Used 08/18/23 13:21 Thrive Assessment: Date of Thrive Assessment Date Thrive assessed 08/06/22 08/18/23 13:21 Const General: alert; No acute distress Eyes Conjunctivae: conjunctivae normal Resp Auscultation: clear to auscultation bilaterally Cardio Rate: regular rate Rhythm: regular rhythm GI Inspection: Yes normal to inspection Extrem General: Yes normal to inspection and No edema Assessment and Plan Assessment & Plan (1) Tachycardia: Code(s): R00.0 - Tachycardia, unspecified Plan: Reassurance as cardiology has evaluated. (2) Hypercholesterolemia: Code(s): E78.00 - Pure hypercholesterolemia, unspecified Plan: Avoid fried foods, chicken skin, eggs, butter margarine, pastries and meat. Be it pork or beef they have a lot of cholesterol LDL goal of less than 130 and triglyceride of less than 150. Patient on atorvastatin 20 mg once a day and fenofibrate 160 mg once a day (3) Migraine: Code(s): G43.909 - Migraine, unspecified, not intractable, without status migrainosus Qualifiers: Migraine type: without aura Status migrainosus presence: without status migrainosus Intractability: not intractable Qualified Code(s): G43.009 - Migraine without aura, not intractable, without status migrainosus Plan: Keep well hydrated eat healthy and keep active (4) Impaired glucose tolerance: Code(s): R73.02 - Impaired glucose tolerance (oral) Plan: Decrease the amount of carbohydrate intake, pasta, bread, rice and potatoes are all sugar and that is aside from all the sweet stuff, remember that fruits are good but they are Sweet also. (5) Generalized anxiety disorder: Code(s): F41.1 - Generalized anxiety disorder Plan: Had a long discussion with the patient and had office counseling done (6) Interstitial cystitis (chronic) with hematuria: Code(s): N30.11 - Interstitial cystitis (chronic) with hematuria Plan: Patient follows up with urology and treated with your refill p.r.n. did discuss with her the reasons why infection occurs often. (7) Breast cancer screening by mammogram: Code(s): Z12.31 - Encounter for screening mammogram for malignant neoplasm of breast Plan: reminded about mammogram (8) Cervicalgia: Code(s): M54.2 - Cervicalgia Plan: X x-ray requested (9) Shoulder pain, bilateral: Code(s): M25.511 - Pain in right shoulder; M25.512 - Pain in left shoulder Plan: X-ray request (10) Low back pain: Code(s): M54.50 - Low back pain, unspecified Plan: X-ray requested Orders: Orders XR shoulder LT min 2V Today M25.511 - Pain in right shoulder, M25.512 - Pain in left shoulder XR cervical spine 2V Today M54.2 - Cervicalgia XR shoulder RT min 2V Today M25.511 - Pain in right shoulder, M25.512 - Pain in left shoulder XR lumbar spine 2-3V Today M54.50 - Low back pain, unspecified Medications: New magnesium oxide 400 mg PO DAILY 90 tabs 3RF M54.2 - Cervicalgia Refilled cetirizine 10 mg PO DAILY 90 tabs 3RF M54.2 - Cervicalgia Discontinued fluconazole Discontinued Reason: Patient Completed Course 150 mg PO Q3D 2 doses 2 tabs 0RF Coding Level of Care Code Est Pt Level 4 (59204) Diagnoses Tachycardia R00.0 Hypercholesterolemia E78.00 Migraine without aura and without status migrainosus, not intractable G43.009 Migraine type: without aura Status migrainosus presence: without status migrainosus Intractability: not intractable Impaired glucose tolerance R73.02 Generalized anxiety disorder F41.1 Interstitial cystitis (chronic) with hematuria N30.11 Breast cancer screening by mammogram Z12.31 Cervicalgia M54.2 Shoulder pain, bilateral M25.511; M25.512 Low back pain M54.50
== END 2023-08-18 14:06 | disposition home or self-care (01) ==
PROVIDERS: Visit Provider Internal Medicine
DX: E78.00 Pure hypercholesterolemia, unspecified (principal); R00.0 Tachycardia, unspecified; G43.009 Migraine without aura, not intractable, without status migrainosus; R73.02 Impaired glucose tolerance (oral); F41.1 Generalized anxiety disorder; N30.11 Interstitial cystitis (chronic) with hematuria; M54.2 Cervicalgia; M25.511 Pain in right shoulder; M25.512 Pain in left shoulder; M54.50 Low back pain, unspecified
CPT/HCPCS: 99214

== ENCOUNTER 2023-08-20 08:33 | Outpatient (REF) | payer OTHER, SELFPAY ==
--- NOTE | ~2023-08-20 | MM_ITS ---
EXAMINATION: MM SCREENING DIGITAL BREAST TOMOSYNTHESIS, BILATERAL CLINICAL INFORMATION: Screening. Asymptomatic. COMPARISON: Mammography: This study is compared with prior exams dating back to 2018. TECHNIQUE: Digital breast tomosynthesis is performed in both the craniocaudal and mediolateral oblique views along with computer-aided detection (CAD). Synthesized 2D images are generated from the tomosynthesis. FINDINGS: There are scattered areas of fibroglandular density (ACR BI-RADS breast composition Category b). There are no significant masses, abnormal calcifications, or other abnormalities. There are benign calcifications in the upper outer quadrant of the right breast which have been previously evaluated with magnification mammography. MM/MM tomosynthesis screening BI IMPRESSION: No mammographic evidence of malignancy. ASSESSMENT: BI-RADS BI-RADS 2 - Benign Findings RECOMMENDATION: Routine annual mammography screening. 1 year F/U This examination should not preclude the clinical evaluation of a suspicious palpable abnormality. This patient's information was entered into a reminder system with a target due date for their next mammogram.
== END 2023-08-20 08:34 | disposition home or self-care (01) ==
LOC: HO.MAMMO 08:33
PROVIDERS: PCP Internal Medicine; Visit Provider Internal Medicine
DX: Z12.31 Encounter for screening mammogram for malignant neoplasm of breast (principal)
CPT/HCPCS: 77063; 77067

== ENCOUNTER → 2023-08-20 08:45 | Outpatient (BNV) | payer OTHER, SELFPAY | PROVIDERS: PCP Internal Medicine; Visit Provider Radiology Diagnostic Radiology | DX: Z12.31 Encounter for screening mammogram for malignant neoplasm of breast (principal) | CPT/HCPCS: 77063; 77067 ==

== ENCOUNTER 2023-08-26 12:41 | Outpatient (REF) | payer OTHER, SELFPAY ==
--- NOTE | ~2023-08-26 | XR_ITS ---
STUDY: Cervical spine, bilateral shoulders, lumbar spine INDICATION: Cervicalgia, bilateral shoulder and low back pain TECHNIQUE: 4 view cervical spine, 4 views each shoulder, 3 view lumbar spine COMPARISON: 06/01/2021 lumbar spine FINDINGS: Cervical spine: Very mild cervical lordotic straightening. Vertebral bodies are maintained in height. Multilevel spurring. Moderate C5-C6 and mild C6-C7 disc space narrowings. Odontoid is intact, posterior elements are aligned and no prevertebral soft tissue swelling seen. Lung apices are clear. Bilateral shoulders: Mild mild bilateral acromioclavicular joint space narrowings. Glenohumeral joint is maintained. No fracture or dislocation recognized bilaterally. No abnormal calcification seen. Visualized ribs are intact. Mild left base atelectasis. Lumbar spine: Other than mild lordotic straightening, alignment is normal. 5 lumbar type vertebral bodies are identified and are maintained in height. Pedicles and SI joints within normal limits. XR/XR shoulder RT min 2V IMPRESSION: Mild cervical lordotic straightening and cervical spondylosis. No acute bony pathology bilateral shoulders and lumbar spine.
--- NOTE | ~2023-08-26 | XR_ITS ---
STUDY: Cervical spine, bilateral shoulders, lumbar spine INDICATION: Cervicalgia, bilateral shoulder and low back pain TECHNIQUE: 4 view cervical spine, 4 views each shoulder, 3 view lumbar spine COMPARISON: 06/01/2021 lumbar spine FINDINGS: Cervical spine: Very mild cervical lordotic straightening. Vertebral bodies are maintained in height. Multilevel spurring. Moderate C5-C6 and mild C6-C7 disc space narrowings. Odontoid is intact, posterior elements are aligned and no prevertebral soft tissue swelling seen. Lung apices are clear. Bilateral shoulders: Mild mild bilateral acromioclavicular joint space narrowings. Glenohumeral joint is maintained. No fracture or dislocation recognized bilaterally. No abnormal calcification seen. Visualized ribs are intact. Mild left base atelectasis. Lumbar spine: Other than mild lordotic straightening, alignment is normal. 5 lumbar type vertebral bodies are identified and are maintained in height. Pedicles and SI joints within normal limits. XR/XR lumbar spine 2-3V IMPRESSION: Mild cervical lordotic straightening and cervical spondylosis. No acute bony pathology bilateral shoulders and lumbar spine.
--- NOTE | ~2023-08-26 | XR_ITS ---
STUDY: Cervical spine, bilateral shoulders, lumbar spine INDICATION: Cervicalgia, bilateral shoulder and low back pain TECHNIQUE: 4 view cervical spine, 4 views each shoulder, 3 view lumbar spine COMPARISON: 06/01/2021 lumbar spine FINDINGS: Cervical spine: Very mild cervical lordotic straightening. Vertebral bodies are maintained in height. Multilevel spurring. Moderate C5-C6 and mild C6-C7 disc space narrowings. Odontoid is intact, posterior elements are aligned and no prevertebral soft tissue swelling seen. Lung apices are clear. Bilateral shoulders: Mild mild bilateral acromioclavicular joint space narrowings. Glenohumeral joint is maintained. No fracture or dislocation recognized bilaterally. No abnormal calcification seen. Visualized ribs are intact. Mild left base atelectasis. Lumbar spine: Other than mild lordotic straightening, alignment is normal. 5 lumbar type vertebral bodies are identified and are maintained in height. Pedicles and SI joints within normal limits. XR/XR cervical spine 2V IMPRESSION: Mild cervical lordotic straightening and cervical spondylosis. No acute bony pathology bilateral shoulders and lumbar spine.
--- NOTE | ~2023-08-26 | XR_ITS ---
STUDY: Cervical spine, bilateral shoulders, lumbar spine INDICATION: Cervicalgia, bilateral shoulder and low back pain TECHNIQUE: 4 view cervical spine, 4 views each shoulder, 3 view lumbar spine COMPARISON: 06/01/2021 lumbar spine FINDINGS: Cervical spine: Very mild cervical lordotic straightening. Vertebral bodies are maintained in height. Multilevel spurring. Moderate C5-C6 and mild C6-C7 disc space narrowings. Odontoid is intact, posterior elements are aligned and no prevertebral soft tissue swelling seen. Lung apices are clear. Bilateral shoulders: Mild mild bilateral acromioclavicular joint space narrowings. Glenohumeral joint is maintained. No fracture or dislocation recognized bilaterally. No abnormal calcification seen. Visualized ribs are intact. Mild left base atelectasis. Lumbar spine: Other than mild lordotic straightening, alignment is normal. 5 lumbar type vertebral bodies are identified and are maintained in height. Pedicles and SI joints within normal limits. XR/XR shoulder LT min 2V IMPRESSION: Mild cervical lordotic straightening and cervical spondylosis. No acute bony pathology bilateral shoulders and lumbar spine.
== END 2023-08-26 12:42 | disposition home or self-care (01) ==
LOC: HO.XRAY 12:41
PROVIDERS: PCP Internal Medicine; Visit Provider Internal Medicine
DX: M25.511 Pain in right shoulder (principal); M25.512 Pain in left shoulder; M54.2 Cervicalgia; M54.50 Low back pain, unspecified
CPT/HCPCS: 72040; 72100; 73030

== ENCOUNTER 2023-09-02 11:45 | Outpatient (AMB) | payer OTHER, SELFPAY ==
--- NOTE | 2023-09-02 11:45 | A.OFFPC_ITS ---
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 Allergies latex [Latex] Allergy (Mild, Verified 09/02/23 11:45) SWELLING/ITCHING Sulfa (Sulfonamide Antibiotics) Allergy (Mild, Verified 09/02/23 11:45) SWELLING/ITCHING, pruritis sulfamethoxazole [From BACTRIM] Allergy (Unknown, Verified 09/02/23 11:45) ITCHY/HIVES trimethoprim [From BACTRIM] Allergy (Unknown, Verified 09/02/23 11:45) ITCHY/HIVES metoclopramide [From REGLAN] Adverse Reaction (Unknown, Verified 09/02/23 11:45) AGITATION Tobacco use date assessed: 09/02/23 HPI Cold Symptoms HPI Details 52-year-old female with hypercholesterol emia impaired glucose tolerance generalized anxiety disorder interstitial cystitis calling in for an acute problem. 4 days sore throat, , congested, no fever, mild cough, no diarrhea, on cetirizine and NS, no myalgia PFSH Medical History Tachycardia Daytime sleepiness Snoring Migraine Vertigo Cervicalgia Pre-op examination Unspecified Eustachian tube disorder, left ear Acute pharyngitis Urgency of micturition Abdominal pain Dysuria Diarrhea Lightheadedness Dizziness Hematuria Acute conjunctivitis of left eye Wound of right leg Abdominal cramping Allergic conjunctivitis Nephrolithiasis Colitis Interstitial cystitis Chronic cough COVID-19 long hauler COVID-19 Elevated lipase Pain in both knees Heart palpitations Upper abdominal pain Vaginal itching Suprapubic pain Vaginal spotting Hematuria Frequency of micturition Myalgia Post-vaccination reaction Palpitations Bilateral lower extremity pain Hearing deficit Frequency of micturition Toe swelling Toe pain, right Vitamin B12 deficiency Scalp cyst Vitamin D deficiency GERD (gastroesophageal reflux disease) Multiple thyroid nodules Lateral meniscal tear Restrictive lung disease Benign hematuria Hemorrhoids Irritable bowel syndrome Cervical disc herniation Impaired glucose tolerance Migraine Hypercholesterolemia Erosive esophagitis Surgical History Hx of colonoscopy H/O esophagogastroduodenoscopy S/P excision of lipoma Hx of tubal ligation History of lumpectomy of left breast Family History Father Skin cancer Mother Skin cancer High blood pressure Heart problem CVA (cerebral vascular accident) Maternal Grandfather Skin cancer Cancer FH: prostate cancer Brother Schizophrenia Other Mental health problem Social History Household Members: None Housing: Apartment Alcohol intake: never Patient Tobacco Use Status: Former Tobacco user Tobacco use type: Cigarette Years Smoked: quit 2007 e-Cigarette/Vaping Use: Never Used Second Hand Smoke Exposure: No service: No Current occupational status: employed 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 How often do you have a drink containing alcohol?: Monthly or less 2. How many drinks containing alcohol do you have on a typical day when you are drinking?: 1 or 2 Total Score: 1 Score Reviewed/Action Taken: No PACO-7 AMB Questionnaire PACO-7 Date PACO - 7 assessed: 08/28/22 Source: Developed by Drs. Bill Morris, Chiquis Webster, Duke Madera and colleagues, with an educational claudia from [employer]. Physical exam (Primary Care) Tobacco/Smoking Status: Tobacco use Status Tobacco use date assessed 09/02/23 09/02/23 11:47 Patient Tobacco Use Status Former Tobacco user 09/02/23 11:47 Tobacco use type Cigarette 09/02/23 11:47 e-Cigarette/Vaping Use Never Used 09/02/23 11:47 Thrive Assessment: Date of Thrive Assessment Date Thrive assessed 08/06/22 09/02/23 11:47 Telehealth Telehealth Location of provider rendering services: practice address Location of patient: address on file Patient Identification confirmed using: Name, : No Telehealth method: voice only ([id number] // android ) Patient verbally consented to treatment: Yes Patient verbally consented to billing insurance company: Yes Patient informed of any privacy concerns related to visit: Yes Minutes spent on Phone/Video with Pt.: 15 Assessment and Plan Assessment & Plan (1) Upper respiratory infection: Code(s): J06.9 - Acute upper respiratory infection, unspecified Plan: Keep well hydrated antibiotic did send continue with allergy medication (2) Osteoarthritis, shoulder: Code(s): M19.019 - Primary osteoarthritis, unspecified shoulder Plan: Discussed on keeping active and do exercises and stretches (3) Cervical spine arthritis with nerve pain: Code(s): M47.812 - Spondylosis without myelopathy or radiculopathy, cervical region; M79.2 - Neuralgia and neuritis, unspecified Plan: Keep active and do stretches Medications: New amoxicillin 875 mg PO BID 14 tabs 0RF J06.9 - Acute upper respiratory infection, unspecified Coding Level of Care Code Tele Est Pt Level 4 (39355) Diagnoses Upper respiratory infection J06.9 Osteoarthritis, shoulder M19.019 Cervical spine arthritis with nerve pain M47.812; M79.2
== END 2023-09-02 12:34 | disposition home or self-care (01) ==
LOC: HO.HMGH 11:45
PROVIDERS: PCP Internal Medicine; Visit Provider Internal Medicine
DX: J06.9 Acute upper respiratory infection, unspecified (principal); M19.019 Primary osteoarthritis, unspecified shoulder; M47.812 Spondylosis without myelopathy or radiculopathy, cervical region; M79.2 Neuralgia and neuritis, unspecified
CPT/HCPCS: 99214

== ENCOUNTER 2023-10-23 08:09 | Outpatient (AMB) | payer OTHER, SELFPAY ==
[2023-10-23 08:20] VITALS: BP 104/70; PULSE 73; TEMP 36.9; O2SAT 98
--- NOTE | 2023-10-23 08:20 | MHC.OFFWIV ---
Intake Vital Signs 10/23/23 08:20 Height 5 ft 5 in BP 104/70 Blood Pressure Location Lt brachial Position Sitting Pulse 73 Pulse Source Pulse Oximeter Temp 98.4 F Temp Source Oral Pulse Oximetry (%) 98 Oxygen Delivery Method Room Air Intake Visit Reasons: Pain left side (lobby) Intake Note: pt says she felt like her stomach was twisting and now has left side stomach pain that goes to the middle of her stomach pt says she has had this pain for 3 weeks she gets nausea and pain after eating and pain with BM pt denies diarrhea and vomiting she says she is feeling bloated even when she does not eat Patient Tobacco Use Status: Former Tobacco user Allergies latex [Latex] Allergy (Mild, Verified 10/23/23 08:26) SWELLING/ITCHING Sulfa (Sulfonamide Antibiotics) Allergy (Mild, Verified 10/23/23 08:26) SWELLING/ITCHING, pruritis sulfamethoxazole [From BACTRIM] Allergy (Unknown, Verified 10/23/23 08:26) ITCHY/HIVES trimethoprim [From BACTRIM] Allergy (Unknown, Verified 10/23/23 08:26) ITCHY/HIVES metoclopramide [From REGLAN] Adverse Reaction (Unknown, Verified 10/23/23 08:26) AGITATION Do you need a note to return to daycare/school/sports/work: No HPI Pain left side (lobby) HPI Details This is a 52-year-old female patient who presents today with a three-week history of left-sided abdominal pain and cramping, radiating to her mid epigastric pain, exacerbated after eating. Denies any vomiting. Denies diarrhea. Intermittently has constipation, which she reports resolves with diet change. Taking Linzess as needed. Has a history of GI issues including IBS/colitis. Has seen GI previously and had abdominal workup done. Had normal abdominal ultrasound, normal gastric emptying study. Taking daily pantoprazole. Denies any fever, chills, fatigue. Reports persistent bloating. States she noticed some dark red blood in her stool yesterday. It appears her last GI visit was in December 2022, at which time he recommended an EGD/colonoscopy given hx of erosive esophagitis/gastritis. [facility] Medical History Tachycardia Daytime sleepiness Snoring Migraine Vertigo Cervicalgia Pre-op examination Unspecified Eustachian tube disorder, left ear Acute pharyngitis Urgency of micturition Abdominal pain Dysuria Diarrhea Lightheadedness Dizziness Hematuria Acute conjunctivitis of left eye Wound of right leg Abdominal cramping Allergic conjunctivitis Nephrolithiasis Colitis Interstitial cystitis Chronic cough COVID-19 long hauler COVID-19 Elevated lipase Pain in both knees Heart palpitations Upper abdominal pain Vaginal itching Suprapubic pain Vaginal spotting Hematuria Frequency of micturition Myalgia Post-vaccination reaction Palpitations Bilateral lower extremity pain Hearing deficit Frequency of micturition Toe swelling Toe pain, right Vitamin B12 deficiency Scalp cyst Vitamin D deficiency GERD (gastroesophageal reflux disease) Multiple thyroid nodules Lateral meniscal tear Restrictive lung disease Benign hematuria Hemorrhoids Irritable bowel syndrome Cervical disc herniation Impaired glucose tolerance Migraine Hypercholesterolemia Erosive esophagitis Surgical History Hx of colonoscopy H/O esophagogastroduodenoscopy S/P excision of lipoma Hx of tubal ligation History of lumpectomy of left breast Family History Father Skin cancer Mother Skin cancer High blood pressure Heart problem CVA (cerebral vascular accident) Maternal Grandfather Skin cancer Cancer FH: prostate cancer Brother Schizophrenia Other Mental health problem Social History Household Members: None Housing: Apartment Alcohol intake: never Patient Tobacco Use Status: Former Tobacco user Tobacco use type: Cigarette Years Smoked: quit 2007 e-Cigarette/Vaping Use: Never Used Second Hand Smoke Exposure: No service: No Current occupational status: employed 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 Cognitive needs: No Hearing needs: No Vision needs: No Review of Systems Const All systems reviewed & are unremarkable except as noted in HPI and below Physical Exam Vital Signs: Last Vital Signs Temp 98.4 F 10/23/23 08:20 Pulse 73 10/23/23 08:20 BP 104/70 10/23/23 08:20 Pulse Ox 98 10/23/23 08:20 Oxygen Delivery Method Room Air 10/23/23 08:20 Const General: cooperative, healthy appearing, comfortable and no acute distress Resp Effort & Inspection: normal respiratory effort Auscultation: clear to auscultation bilaterally Cardio Jugular venous distension: no JVD Palpation: normal PMI Rate: regular rate Rhythm: regular rhythm GI Other: patient reports mild discomfort with abdominal palpation, primarily left side and mid-epigastric area Inspection: Yes normal to inspection Palpation (GI): Soft to palpation and No hepatosplenomegaly present Auscultation: normal bowel sounds General: Yes bladder normal to palpation and Yes no CVA tenderness Bimanual exam- vagina & uterus: bladder normal to palpation Back/Spine/Pelvis Back: no CVA tenderness Skin General skin exam: no rashes or lesions noted Extrem General: Yes capillary refill normal and Yes no clubbing, cyanosis or edema Psych Appearance: grossly normal Mental Status: mental status grossly normal Speech and movement: Normal speech and movement present Results AMB Urinalysis, Automated UA Leukoctes 0 Stephanie/uL Last Edit by Salome Torres on 10/23/23 09:04 UA Nitrite Negative Last Edit by Salome Torres on 10/23/23 09:04 UA Urobilinogen 0.2 mg/dL Last Edit by Salome Torres on 10/23/23 09:04 UA Protein 0 mg/dL Last Edit by Salome Torres on 10/23/23 09:04 UA pH 6.0 Last Edit by Salome Torres on 10/23/23 09:04 UA Blood 80 Vito/uL Last Edit by Salome Torres on 10/23/23 09:04 UA Specific Strawberry 1.010 Last Edit by Salome Torres on 10/23/23 09:04 UA Ketone Negative Last Edit by Salome Torres on 10/23/23 09:04 UA Bilirubin 0 mg/dL Last Edit by Salome Torres on 10/23/23 09:04 UA Glucose 0 mg/dL Last Edit by Salome Torres on 10/23/23 09:04 Assessment & Plan Assessment & Plan (1) Abdominal cramping: Code(s): R10.9 - Unspecified abdominal pain Plan: Patient having recurrence of abdominal bloating, dull pain, nausea, blood in stool yesterday. UTI ruled out in the office, urine dip with blood only (history of IC), otherwise negative. Advised she continue to take pantoprazole. I called GI office and set up an appointment for her to see Jenelle Santoro in 2 weeks - 11/10, which patient agrees to. I am going to prescribe her Zofran and simethicone for her nausea and gas. We reviewed indications, use, possible side effects of medication. We discussed at length that should her abdominal pain worsen, become persistent, or if she develops any new symptoms such as fever, she should go to the emergency department for further evaluation/workup. She verbalizes understanding and agrees to plan. (2) Nausea: Code(s): R11.0 - Nausea Plan: as above Medications: New ondansetron HCl 4 mg PO Q8H PRN 20 tabs 0RF nausea and vomiting R11.0 - Nausea simethicone Take one capsule as needed after meals and at bedtime for gas retention. 125 mg PO BID-QID PRN 30 caps 0RF abdominal distention R10.9 - Unspecified abdominal pain Coding Level of Care Code Est Pt Level 4 (30005) Diagnoses Abdominal cramping R10.9 Nausea R11.0
== END 2023-10-23 09:19 | disposition home or self-care (01) ==
PROVIDERS: PCP Internal Medicine; Visit Provider Nurse Practitioner Family
DX: R10.9 Unspecified abdominal pain (principal); R11.0 Nausea
CPT/HCPCS: 99214

== ENCOUNTER 2023-10-24 06:58 | Emergency (ER) | payer OTHER, SELFPAY ==
--- NOTE | ~2023-10-24 | CT_ITS ---
EXAMINATION: CT ABDOMEN AND PELVIS WITH CONTRAST CLINICAL INFORMATION: Left-sided pain COMPARISON: None available. TECHNIQUE: Multidetector volumetric images were obtained from the superior aspect of the liver through the pubic symphysis following administration 85 mL of Omnipaque 350 intravenous contrast. Sagittal and coronal reformatted images were obtained on the technologist's workstation. Oral contrast: Yes This CT examination was performed using dose optimization techniques as appropriate, variously including the following: *Automated exposure control *Adjustment of mA and/or kV according to patient size (this includes techniques or standardized protocols for targeted exams where dose is matched to indication/reason for exam; i.e. extremities or head) *Use of iterative reconstruction technique DLP: 459 mGy-cm FINDINGS: LUNG BASES: The visualized lung bases are unremarkable. LIVER, GALLBLADDER, AND BILIARY TREE: The liver is normal in size, shape, and attenuation. No focal hepatic lesion or biliary ductal dilatation is present. The gallbladder is unremarkable with no evidence of radiopaque gallstones, gallbladder wall thickening, or obvious pericholecystic inflammatory changes. PANCREAS: Unremarkable. SPLEEN: Unremarkable. ADRENAL GLANDS: Unremarkable. KIDNEYS AND URETERS: The kidneys are normal in size, shape, and attenuation. No hydronephrosis, hydroureter, or calculi seen. No perinephric stranding. BLADDER: Unremarkable. GASTROINTESTINAL TRACT: Mild diverticulosis of the colon. Small and large bowel are otherwise normal. The appendix is unremarkable. ABDOMINAL WALL: No significant hernia is appreciated. LYMPH NODES: Normal. VASCULAR: Unremarkable. PELVIC VISCERA: Unremarkable. OSSEOUS STRUCTURES: Unremarkable. CT/CT abdomen pelvis w IV con IMPRESSION: No acute findings. Mild diverticulosis of the colon. Fleischner guidelines were followed.
[2023-10-24 07:03] VITALS: BP 127/67; PULSE 95; RESP 18; TEMP 36.3; O2SAT 99; BMI 25.5
[2023-10-24 07:37] LABS: MANUAL DIFF FLAG NO
[2023-10-24 07:39] LABS: Basophils Percent Auto 0.6 % (0-2); Eosinophils Absolute Auto 0.2 X10*3/uL (0.0-0.4); Eosinophils Percent Auto 3.3 % (0-4); Hematocrit 41.1 % (37.0-47.0); Hemoglobin 13.9 g/dl (12.0-16.0); Imm Gran Abs Auto 0.02 X10*3/uL (0.00-0.03); Imm Gran Pct Auto 0.3 % (0.0-0.4); Lymphocytes Absolute Auto 2.3 X10*3/uL (1.2-4.9); Lymphocytes Percent Auto 34.9 % (20-40); Mean Corpuscular HGB Conc 33.8 g/dl (31.0-35.0); Mean Corpuscular Hemoglobin 29.3 pg (27.0-33.0); Mean Corpuscular Volume 86.7 fL (80.0-98.0); Monocytes Absolute Auto 0.3 X10*3/uL (0.1-1.2); Monocytes Percent Auto 5.1 % (2-11); Neutrophils Absolute Auto 3.7 x10*3/uL (2.0-8.3); Neutrophils Percent Auto 55.8 % (45-73); Platelet Count 287 X10*3/uL (160-400); Red Blood Count 4.74 X10*6/uL (4.20-5.50); Red Cell Distribution Width 12.2 % (11.0-16.0); White Blood Count 6.7 X10*3/uL (4.8-10.8)
[2023-10-24 07:51] LABS: Appearance Urine Clear; Color Urine Yellow; Glucose Urine UA Negative (Negative); Leukocyte Esterase Urine Negative (Negative); Nitrite Urine Negative (Negative); PH 5.5 (5.0-9.0); UMIC TRIGGER UACC YES; Urine Blood Small (1+) (Negative); Urine Ketones Negative (Negative); Urine Protein Negative (Neg-Trace)
[2023-10-24 07:58] LABS: Alanine Aminotransferase 16 U/L (0-31); Alkaline Phosphatase 94 U/L (39-117); Anion Gap 11 (12-20); Aspartate Amino Transferase 14 U/L (5-31); Bilirubin Total 0.4 mg/dL (0.0-1.0); Blood Urea Nitrogen 24 mg/dL (9-16); Calcium 9.7 mg/dL (8.4-10.2); Carbon Dioxide 26 mmol/L (22-29); Chloride 107 mmol/L (96-108); Creatinine Clr Calc Pharmacy 83.7; Estimated Glomerular Filt Rate > 60; Glucose Random 112 mg/dL (60-115); Lipase 50 U/L (8-78); Sodium 140 mmol/L (135-145); Total Protein 7.4 g/dL (6.5-8.0)
[2023-10-24 08:00] LABS: Bacteria Urine None Seen (None Seen); Hyaline Casts Urine 0-2 /LPF (0-2); RBC Urine 0-2 /HPF (0-2); Squamous Epithelial Cell Urine 0-2 /HPF (0-2); WBC Urine 0-5 /HPF (0-5)
--- NOTE | 2023-10-24 09:13 | ED.GENADULT ---
HPI - General Adult General Chief complaint: Abdominal Pain Stated complaint: gen med Time Seen by Provider: 10/24/23 09:12 Source: patient and old records reviewed Mode of arrival: ambulatory Limitations: no limitations History of Present Illness HPI narrative: Patient is a 52-year-old female with history of erosive esophagitis, GERD, IBS with constipation presenting to the emergency department with complaint of abdominal pain to multiple different areas for the past 3 weeks. She complains of left-sided abdominal pain as well as epigastric pain. States the pain moves all over her abdomen. Worse after eating. Complains of nausea but denies vomiting, diarrhea, constipation. Does report some darker red blood noted in her stool. Reports increased flatus. Denies fevers. Feels bloated. Was seen at urgent care yesterday and was prescribed Zofran and simethicone which she states she did not picket labor union or take. Has an appointment with GI scheduled for 2 weeks from now. MD complaint: abdominal pain Onset (ago): week(s) Location: abdomen Severity: moderate Quality: aching Pain Consistency: constant Relieving factors: none Exacerbating factors: eating Associated symptoms: nausea/vomiting Treatments prior to arrival: none Related Data Home Medications Medication Instructions Recorded Confirmed multivitamin 1 tab PO DAILY 11/16/20 08/18/23 Previous Rx's Medication Instructions Recorded blood pressure monitor (Blood #1 ea 04/18/22 Pressure Kit) fenofibrate 160 mg tablet 160 mg PO DAILY #90 tabs 04/18/22 fluticasone propionate 50 2 spray intranasal DAILY PRN 07/03/22 mcg/actuation nasal allergy symptoms #16 mL spray,suspension cholecalciferol (vitamin D3) 50 50 mcg PO DAILY #90 tabs 01/09/23 mcg (2,000 unit) tablet Lactobacillus acidophilus 100 mg 100 mg PO DAILY 90 days #90 caps 01/24/23 (1 billion cell) capsule pantoprazole 40 mg tablet,delayed 40 mg PO DAILY #90 tabs 01/24/23 release cetirizine 10 mg tablet 10 mg PO DAILY #90 tabs 08/18/23 magnesium oxide 400 mg (241.3 mg 400 mg PO DAILY #90 tabs 08/18/23 magnesium) tablet atorvastatin 20 mg tablet 20 mg PO DAILY #90 tabs 10/10/23 ondansetron HCl 4 mg tablet 4 mg PO Q8H PRN nausea and 10/23/23 vomiting #20 tabs simethicone 125 mg capsule 125 mg PO BID-QID PRN abdominal 10/23/23 distention #30 caps Allergies Allergy/AdvReac Type Severity Reaction Status Date / Time latex [Latex] Allergy Mild SWELLING/IT Verified 10/23/23 08:26 ROSSANA Sulfa (Sulfonamide Allergy Mild SWELLING/ITCHING, Verified 10/23/23 08:26 Antibiotics) pruritis sulfamethoxazole Allergy Unknown ITCHY/HIVES Verified 10/23/23 08:26 [From BACTRIM] trimethoprim [From BACTRIM] Allergy Unknown ITCHY/HIVES Verified 10/23/23 08:26 metoclopramide [From REGLAN] AdvReac Unknown AGITATION Verified 10/23/23 08:26 Review of Systems Review of Systems: As per HPI. Yes all other systems are reviewed and are negative Constitutional: Constitutional: Reports as per HPI PMFSH Past Medical History Medical History Tachycardia Daytime sleepiness Snoring Migraine Vertigo Cervicalgia Pre-op examination Unspecified Eustachian tube disorder, left ear Acute pharyngitis Urgency of micturition Abdominal pain Dysuria Diarrhea Lightheadedness Dizziness Hematuria Acute conjunctivitis of left eye Wound of right leg Abdominal cramping Allergic conjunctivitis Nephrolithiasis Colitis Interstitial cystitis Chronic cough COVID-19 long hauler COVID-19 Elevated lipase Pain in both knees Heart palpitations Upper abdominal pain Vaginal itching Suprapubic pain Vaginal spotting Hematuria Frequency of micturition Myalgia Post-vaccination reaction Palpitations Bilateral lower extremity pain Hearing deficit Frequency of micturition Toe swelling Toe pain, right Vitamin B12 deficiency Scalp cyst Vitamin D deficiency GERD (gastroesophageal reflux disease) Multiple thyroid nodules Lateral meniscal tear Restrictive lung disease Benign hematuria Hemorrhoids Irritable bowel syndrome Cervical disc herniation Impaired glucose tolerance Migraine Hypercholesterolemia Erosive esophagitis Surgical History Hx of colonoscopy H/O esophagogastroduodenoscopy S/P excision of lipoma Hx of tubal ligation History of lumpectomy of left breast Family History Family History Father Skin cancer Mother Skin cancer High blood pressure Heart problem CVA (cerebral vascular accident) Maternal Grandfather Skin cancer Cancer FH: prostate cancer Brother Schizophrenia Other Mental health problem Social History Social History Household Members: None Housing: Apartment Alcohol intake: never Patient Tobacco Use Status: Former Tobacco user Tobacco use type: Cigarette Years Smoked: quit 2007 e-Cigarette/Vaping Use: Never Used Second Hand Smoke Exposure: No Advance Directives: No Advance Directives Information Provided: No service: No Current occupational status: employed 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 Blood pressure normal. Heart rate normal. Respiratory rate normal. Temperature normal. Oxygen saturation normal. Const General: cooperative, healthy appearing and no acute distress Orientation/consciousness: oriented to person, oriented to place, oriented to time and patient oriented x3 Limitations: no limitations HENMT Head: Yes normocephalic and Yes atraumatic Ears: external ears normal General nose exam: Normal external nose present Face and sinus: Yes face symmetric Mouth: oropharynx normal and moist mucous membranes Throat: Yes uvula midline Eyes Pupils: Equal, round and reactive pupils present Neck Neck: Yes normal visual inspection and Yes supple Resp Effort & Inspection: normal respiratory effort and able to speak in complete sentences Auscultation: clear to auscultation bilaterally Cardio Rate: regular rate Rhythm: regular rhythm Heart sounds: S1 normal heart sound present and S2 normal heart sound present GI Other: Rectal exam chaperoned by DICKSON Govea. Palpation (GI): Soft to palpation, Tenderness to palpation present (GI) in the LLQ and in the LUQ, no guarding and No Rebound tenderness present Auscultation: normoactive bowel sounds Rectal Exam - Female: External hemorrhoid(s) present (no active bleeding) General: Yes no CVA tenderness Back/Spine/Pelvis Back: no CVA tenderness Skin General skin exam: elasticity normal and turgor normal Neuro General: oriented to person, oriented to place, oriented to time, patient oriented x3, moves all extremities, no focal motor deficits and CN's II-XI intact bilaterally Cranial nerves: Yes Equal, round and reactive pupils present Cognition (Neuro): normal cognition Extrem General: Yes full ROM, Yes no pedal edema and Yes no calf tenderness Psych Mental Status: mental status grossly normal Affect: normal affect Thought process: Normal thought process present Medications Administered Discontinued Medications Generic Name Dose Route Start Last Admin Trade Name Frecarlo PRN Reason Stop Dose Admin Sodium Chloride 1,000 mls @ 999 mls/hr 10/24/23 10:30 10/24/23 10:57 Ns IV 10/24/23 11:30 999 mls/hr .Q1H1M NORA Administration Iohexol 100 ml 10/24/23 10:36 10/24/23 10:36 Iohexol 350 Mg/Ml 100 Ml Infus..Btl IV 10/24/23 10:37 85 ml ONCE ONE Administration Medical Decision Making Medical Decision Making MDM Narrative: Patient is a 52-year-old female with history of erosive esophagitis, GERD, IBS with constipation presenting to the emergency department with complaint of abdominal pain to multiple different areas for the past 3 weeks. On exam patient is awake, A+Ox3, VS WNL, afebrile, normal neurological exam without focal deficits, physical exam findings as above. Given reported symptoms and physical exam findings, initial differential includes IBS flare, diverticulitis, constipation. Do not suspect AAA, mesenteric ischemia, ovarian torsion, perforated viscous or other life threatening condition. Labs notable for no leukocytosis, no anemia, elevated BUN, no electrolyte abnormalities, normal LFTs. No evidence of infection on urinalysis. CT unremarkable, mild diverticulosis of the colon noted. My interpretation is in agreement with the radiologist's interpretation. Results discussed with patient and all questions answered. Feel patient is stable for discharge home at this time. Encouraged patient to picket labor union her prescriptions from the pharmacy that were prescribed by urgent care provider yesterday. Encouraged patient to keep her appointment with community service officer coordinator which is upcoming. Return precautions discussed at bedside. Patient verbalized understanding of and agreement with plan. Differential Diagnosis Differential Diagnoses: The differential diagnosis associated with the presentation includes As per MDM. Admission/Observation Consideration of admission/observation: Escalation of care including admission/observation considered Patient would have been admitted to the hospital had their work up had any findings where hospital admission was appropriate and their clinical presentation warranted hospital admission. Lab Data [facility] Lab Attestation statement: I reviewed the patient's lab results. As per [facility]. 10/24/23 07:33 10/24/23 07:33 Labs: Lab Results 10/24/23 10/24/23 Range/Units 07:33 07:36 WBC 6.7 (4.8-10.8) X10*3/uL RBC 4.74 (4.20-5.50) X10*6/uL Hgb 13.9 (12.0-16.0) g/dl Hct 41.1 (37.0-47.0) % MCV 86.7 (80.0-98.0) fL MCH 29.3 (27.0-33.0) pg MCHC 33.8 (31.0-35.0) g/dl RDW 12.2 (11.0-16.0) % Plt Count 287 (160-400) X10*3/uL MPV 10.0 (9.4-12.3) fL Immature Gran % (Auto) 0.3 (0.0-0.4) % Neut % (Auto) 55.8 (45-73) % Lymph % (Auto) 34.9 (20-40) % Simpson % (Auto) 5.1 (2-11) % Eos % (Auto) 3.3 (0-4) % Baso % (Auto) 0.6 (0-2) % Lymph # (Auto) 2.3 (1.2-4.9) X10*3/uL Simpson # (Auto) 0.3 (0.1-1.2) X10*3/uL Eos # (Auto) 0.2 (0.0-0.4) X10*3/uL Baso # (Auto) 0.0 (0.0-0.2) X10*3/uL Abs Immat Gran (auto) 0.02 (0.00-0.03) X10*3/uL Absolute Neuts (auto) 3.7 (2.0-8.3) x10*3/uL Absolute Nucleated RBC 0.000 (0.0-0.012) X10*3/uL Nucleated RBC % (auto) 0.0 (0.0-0.2) /100WBC Sodium 140 (135-145) mmol/L Potassium 4.0 (3.3-5.1) mmol/L Chloride 107 (96-108) mmol/L Carbon Dioxide 26 (22-29) mmol/L Anion Gap 11 L (12-20) BUN 24 H (9-16) mg/dL Creatinine 0.76 (0.5-1.4) mg/dL Estim Creat Clear Calc 83.7 Estimated GFR > 60 Random Glucose 112 (60-115) mg/dL Calcium 9.7 (8.4-10.2) mg/dL Total Bilirubin 0.4 (0.0-1.0) mg/dL AST 14 (5-31) U/L ALT 16 (0-31) U/L Alkaline Phosphatase 94 (39-117) U/L Total Protein 7.4 (6.5-8.0) g/dL Albumin 4.0 (3.5-5.0) g/dL Lipase 50 (8-78) U/L Urine Color Yellow Urine Appearance Clear Urine pH 5.5 (5.0-9.0) Ur Specific [place] 1.010 (1.005-1.025) Urine Protein Negative (Neg-Trace) mg/dL Urine Glucose (UA) Negative (Negative) mg/dL Urine Ketones Negative (Negative) mg/dL Urine Blood Small (1+) H (Negative) Urine Nitrite Negative (Negative) Ur Leukocyte Esterase Negative (Negative) Urine RBC 0-2 (0-2) /HPF Urine WBC 0-5 (0-5) /HPF Ur Squamous Epith Cells 0-2 (0-2) /HPF Urine Bacteria None Seen (None Seen) Hyaline Casts 0-2 (0-2) /LPF Independent Interpretation I performed an independent interpretation of an: CT Scan Interpretation: Unremarkable abdominal CT, mild diverticulosis noted to: Discharge Plan Discharge Clinical Impression: Abdominal pain Patient Disposition: Home, Self-Care Instructions: Abdominal Pain (ED) Additional Instructions: You have been evaluated in the emergency department today for abdominal pain. Your evaluation did not show evidence of medical conditions requiring emergent intervention at this time. You should picket labor union the medications prescribed to you yesterday at the pharmacy and begin taking them as prescribed. You should keep the scheduled appointment that you have with gastroenterology. Please schedule an appointment with your primary care physician as well. Return to the emergency department if you experience worsening or uncontrolled pain, fevers 100.4? F or greater, recurrent vomiting, inability to tolerate food or fluids by mouth, bloody stools or vomit, black or tarry stools, or any other concerning symptoms. Prescriptions: No Action fenofibrate 160 mg tablet 160 mg PO DAILY Qty: 90 2RF fluticasone propionate 50 mcg/actuation spray,suspension 2 spray intranasal DAILY PRN (Reason: allergy symptoms) Qty: 16 3RF cholecalciferol (vitamin D3) 50 mcg (2,000 unit) tablet 50 mcg PO DAILY Qty: 90 3RF atorvastatin 20 mg tablet 20 mg PO DAILY Qty: 90 2RF multivitamin Tablet 1 tab PO DAILY (DME) blood pressure monitor [Blood Pressure Kit] Kit See Rx Instructions .ROUTE .MEDSUPPLY Qty: 1 0RF Rx Instructions: As directed cetirizine 10 mg tablet 10 mg PO DAILY Qty: 90 3RF magnesium oxide 400 mg (241.3 mg magnesium) tablet 400 mg PO DAILY Qty: 90 3RF ondansetron HCl 4 mg tablet 4 mg PO Q8H PRN (Reason: nausea and vomiting) Qty: 20 0RF simethicone 125 mg capsule 125 mg PO BID-QID PRN (Reason: abdominal distention) Qty: 30 0RF Rx Instructions: Take one capsule as needed after meals and at bedtime for gas retention. pantoprazole 40 mg tablet,delayed release (DR/EC) 40 mg PO DAILY Qty: 90 2RF Lactobacillus acidophilus 100 mg (1 billion cell) capsule 100 mg PO DAILY 90 Days Qty: 90 1RF
[2023-10-24 09:23] VITALS: BP 94/57; PULSE 66; RESP 18; TEMP 36.9; O2SAT 98
[2023-10-24] MEDS: iohexoL 350 MG/ML 100 ML INFUS..BTL IV (10:36)
[2023-10-24] MEDS: 0.9 % Sodium Chloride 1,000 ML 999 ML IV (10:57)
== END 2023-10-24 12:29 | disposition home or self-care (01) ==
PROVIDERS: Emergency Provider Student in an Organized Health Care Education/Training Program; PCP Internal Medicine
DX: K59.00 Constipation, unspecified (principal); R10.9 Unspecified abdominal pain; R11.2 Nausea with vomiting, unspecified; Z79.899 Other long term (current) drug therapy
CPT/HCPCS: 36415; 74177; 80053; 81001; 83690; 85025; 99284; Q9967

== ENCOUNTER 2023-11-11 09:16 | Outpatient (AMB) | payer OTHER, SELFPAY ==
--- NOTE | 2023-11-11 09:18 | MHC.OFFVIS ---
Vital Signs 11/11/23 09:37 Height 5 ft 5 in Weight 149 lb BMI 24.8 BP 114/56 L Blood Pressure Location Lt brachial Position Sitting Pulse 67 Intake Visit Reasons: recent abdominal pain and epigastric pain Intake Note: Patient follow up for abdominal and Epigastric pain. Patient cc: nauseas, abdominal pain with bloating on and off, some swallowing problems come and go, acid reflex with burning sensation and some constipation, and needed a refill for Pantoprazole. 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 Accompanied by: Self / Same As Patient Allergies latex [Latex] Allergy (Mild, Verified 11/11/23 09:28) SWELLING/ITCHING Sulfa (Sulfonamide Antibiotics) Allergy (Mild, Verified 11/11/23 09:28) SWELLING/ITCHING, pruritis sulfamethoxazole [From BACTRIM] Allergy (Unknown, Verified 11/11/23 09:28) ITCHY/HIVES trimethoprim [From BACTRIM] Allergy (Unknown, Verified 11/11/23 09:28) ITCHY/HIVES metoclopramide [From REGLAN] Adverse Reaction (Unknown, Verified 11/11/23 09:28) AGITATION Medication List - Last Reconciled 11/11/23 by JOEL Gonzalez atorvastatin 20 mg PO DAILY blood pressure monitor (Blood Pressure Kit) As directed cetirizine 10 mg PO DAILY cholecalciferol (vitamin D3) 50 mcg PO DAILY fenofibrate 160 mg PO DAILY fluticasone propionate 50 mcg/actuation 2 sprays intranasal DAILY PRN Lactobacillus acidophilus 100 mg PO DAILY 90 days linaclotide (Linzess) 72 mcg PO QAM magnesium oxide 400 mg PO DAILY multivitamin 1 tab PO DAILY ondansetron HCl 4 mg PO Q8H PRN pantoprazole 40 mg PO DAILY simethicone 125 mg PO BID-QID PRN sodium,potassium,mag sulfates 17.5-3.13-1.6 gram (Suprep Bowel Prep Kit) 480 mL orally; HPI HPI recent abdominal pain and epigastric pain: Details: She is still waiting for her cardiology appt to dx her palpitations and wants this stablizied before she agrees to repeat colonoscopy/egd. When she does have the scope she would prefer the pill prep if insurance covers it. She has been moving her bowels well and only using the Linzess 72mcg prn. She continues on the pantoprazole and simethicone and still has occasional breakthrough of GERD with certain foods. She ate some fried foods today that really set it off, this prompts a re discussion of GERD food triggers and I again print her a list of foods form [employer]. Her card apt is in Mar. ROV 3 mos.? ? ? Assessment & Plan (1) Erosive esophagitis: ?Comment: EGD and colon December 2018 , May 2019 5 years ?Code(s): K22.10 - Ulcer of esophagus without bleeding (2) GERD (gastroesophageal reflux disease): ?Code(s): K21.9 - Gastro-esophageal reflux disease without esophagitis ?Qualifiers: ?Esophagitis presence:?without esophagitis? Qualified Code(s):?K21.9 - Gastro-esophageal reflux disease without esophagitis (3) Irritable bowel syndrome with constipation: ?Code(s): K58.1 - Irritable bowel syndrome with constipation (4) Chronic idiopathic constipation: ?Code(s): K59.04 - Chronic idiopathic constipation (5) Delayed gastric emptying: ?Code(s): K30 - Functional dyspepsia ? TODAY'S VISIT She has been cleared by cardiology and is ready for her EGD/colonoscopy. She really dislikes the taste of the peg prep. We will try for Suprep as they do not cover Sutab. She was recently seen in our ER for upper abd pain at [facility] [place]. She had unremarkable CT and labs at that time. She has a lot of bloating but I don't want any more pills. She has subjective palpitations and SOB but has had a negative cardiac work up. She has never seen a pulm and I advise her to discuss this with her PCP as she may have something like asthma. No ID problems She has nausea at times from general anesthesia, no other problems with anesthesia or sedation. She is unsure of her family's medical history as they are in [place], but her grandfather had a lot of cancer and she will have to ask her mother about this. She continues on her Linzess 72 micro g, pantoprazole and simethicone. ROV after procedures.and 2 mos to have an appt on the books for her comfort. [facility] Medical History (Updated 11/14/23 @ 09:15 by JOEL Gonzalez) Pre-op examination Upper respiratory infection Low back pain Breast cancer screening by mammogram Thyroid nodule Oropharyngeal dysphagia UTI (urinary tract infection) Right kidney stone COVID-19 Chest pain Delayed gastric emptying Upper abdominal pain Tachycardia Daytime sleepiness Snoring Migraine Vertigo Cervicalgia Unspecified Eustachian tube disorder, left ear Acute pharyngitis Urgency of micturition Abdominal pain Dysuria Diarrhea Lightheadedness Dizziness Hematuria Acute conjunctivitis of left eye Wound of right leg Abdominal cramping Allergic conjunctivitis Nephrolithiasis Colitis Interstitial cystitis Chronic cough COVID-19 long hauler COVID-19 Elevated lipase Pain in both knees Heart palpitations Vaginal itching Suprapubic pain Vaginal spotting Hematuria Frequency of micturition Myalgia Post-vaccination reaction Palpitations Bilateral lower extremity pain Hearing deficit Frequency of micturition Toe swelling Toe pain, right Vitamin B12 deficiency Scalp cyst Vitamin D deficiency GERD (gastroesophageal reflux disease) Multiple thyroid nodules Lateral meniscal tear Restrictive lung disease Benign hematuria Hemorrhoids Irritable bowel syndrome Cervical disc herniation Impaired glucose tolerance Migraine Hypercholesterolemia Erosive esophagitis Surgical History Hx of colonoscopy H/O esophagogastroduodenoscopy S/P excision of lipoma Hx of tubal ligation History of lumpectomy of left breast Family History Father Skin cancer Mother Skin cancer High blood pressure Heart problem CVA (cerebral vascular accident) Maternal Grandfather Skin cancer Cancer FH: prostate cancer Brother Schizophrenia Other Mental health problem Social History Household Members: None Housing: Apartment Alcohol intake: never Patient Tobacco Use Status: Former Tobacco user Tobacco use type: Cigarette Years Smoked: quit 2007 e-Cigarette/Vaping Use: Never Used Second Hand Smoke Exposure: No service: No Current occupational status: employed 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 occupation: [employer] 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 Cognitive needs: No Hearing needs: No Vision needs: No Review of Systems Const Denies fatigue, Denies fever(s), Denies night sweats, Denies poor appetite and Denies weight loss ENT Reports Normal hearing present, Denies dental pain, Denies dysphagia, Denies hearing loss, Denies mouth pain, Denies odynophagia, Denies throat swelling, Denies tongue swelling and Reports other (Dentition adequate) Card Reports no additional complaints Resp Reports no additional complaints GI Details: Denies abdominal pain, Denies melena, Denies bloating, Denies hematochezia, Reports constipation, Denies GI cramping, Denies dysphagia, Denies excessive flatus, Denies early satiety, Reports heartburn, Denies diarrhea, Denies nausea, Denies odynophagia, Denies vomiting and Denies hematemesis Skin/Breast Denies pruritus, Denies lesions, Denies rash and Denies jaundice Neuro Reports Normal hearing present and Denies Abnormal speech present Endo Denies fatigue Aller/Immun Denies throat swelling and Denies tongue swelling Physical Exam Vital Signs: Last Vital Signs Pulse 67 11/11/23 09:37 BP 114/56 L 11/11/23 09:37 BMI result Body Mass Index 24.8 Const General: cooperative, no acute distress, well developed and well groomed Nutritional Appearance: average body habitus and well nourished Orientation/consciousness: oriented to person, oriented to place and oriented to time Limitations: No language barrier HEENT Head: Yes normocephalic and Yes atraumatic Eyes General: appearance normal, both eyes and all related structures Pupils: Equal, round and reactive pupils present Neck Neck: Yes normal visual inspection and Yes no lymphadenopathy Thyroid: Thyroid normal Resp Effort & Inspection: normal respiratory effort and able to speak in complete sentences Auscultation: clear to auscultation bilaterally Cardio Rate: regular rate Rhythm: regular rhythm Heart sounds: Normal, physiologic split S2 sound present Peripheral pulses: radial pulses present and posterior tibial pulses present GI Inspection: No distended and No Abdominal panniculus present Palpation (GI): Soft to palpation, nontender, no guarding, not rigid and No hepatosplenomegaly present Percussion: Yes normal to percussion Auscultation: normal bowel sounds Rectal Exam - Female: deferred Skin General skin exam: no rashes or lesions noted, turgor normal, skin not dry, no jaundice, No spider nevi and no striae Rashes: no rashes Nails: normal Neuro General: oriented to person, oriented to place and oriented to time Cranial nerves: Yes Equal, round and reactive pupils present and Yes Normal hearing present Speech: No Abnormal speech present Extrem General: Yes normal to inspection, No clubbing, No cyanosis and No edema Psych Appearance: grossly normal and well kempt Mental Status: mental status grossly normal Speech and movement: Normal speech and movement present Affect: normal affect Attitude: cooperative Thought process: Normal thought process present and not confabulating Thought content: Normal thought content present Insight: Limited insight present (Psych) Judgement: Limited judgement present (Psych) Assessment & Plan Assessment & Plan (1) Erosive esophagitis: Comment: EGD and colon December 2018 , May 2019 5 years Code(s): K22.10 - Ulcer of esophagus without bleeding Category: Medical (2) GERD (gastroesophageal reflux disease): Code(s): K21.9 - Gastro-esophageal reflux disease without esophagitis Category: Medical Qualifiers: Esophagitis presence: without esophagitis Qualified Code(s): K21.9 - Gastro-esophageal reflux disease without esophagitis (3) Irritable bowel syndrome with constipation: Code(s): K58.1 - Irritable bowel syndrome with constipation Category: Medical (4) Upper abdominal pain: Code(s): R10.10 - Upper abdominal pain, unspecified Category: Medical (5) Tubular adenoma of colon: Code(s): D12.6 - Benign neoplasm of colon, unspecified Category: Medical (6) Pre-op examination: Code(s): Z01.818 - Encounter for other preprocedural examination Category: Medical Plan She has been cleared by cardiology and is ready for her EGD/colonoscopy. She really dislikes the taste of the peg prep. We will try for Suprep as they do not cover Sutab. She was recently seen in our ER for upper abd pain at [facility] [place]. She had unremarkable CT and labs at that time. She has a lot of bloating but I don't want any more pills. She has subjective palpitations and SOB but has had a negative cardiac work up. She has never seen a pulm and I advise her to discuss this with her PCP as she may have something like asthma. No ID problems She has nausea at times from general anesthesia, no other problems with anesthesia or sedation. She is unsure of her family's medical history as they are in [place], but her grandfather had a lot of cancer and she will have to ask her mother about this. She continues on her Linzess 72 micro g, pantoprazole and simethicone. ROV after procedures.and 2 mos to have an appt on the books for her comfort. Orders: Orders EGD/[place] [facility] - GI Use Only 11/11/23 D12.6 - Benign neoplasm of colon, unspecified, K22.10 - Ulcer of esophagus without bleeding, R10.10 - Upper abdominal pain, unspecified Medications: New sodium,potassium,mag sulfates 17.5-3.13-1.6 gram (Suprep Bowel Prep Kit) 480 mL orally; 354 mL 0RF Refilled pantoprazole 40 mg PO DAILY 90 tabs 2RF K21.9 - Gastro-esophageal reflux disease without esophagitis Lactobacillus acidophilus 100 mg PO DAILY 90 caps 1RF 90 days
[2023-11-11 09:37] VITALS: BP 114/56; PULSE 67; BMI 24.8
== END 2023-11-11 10:01 | disposition home or self-care (01) ==
PROVIDERS: PCP Internal Medicine; Visit Provider Nurse Practitioner
DX: K22.10 Ulcer of esophagus without bleeding (principal); K21.9 Gastro-esophageal reflux disease without esophagitis; K58.1 Irritable bowel syndrome with constipation; R10.10 Upper abdominal pain, unspecified; D12.6 Benign neoplasm of colon, unspecified; Z01.818 Encounter for other preprocedural examination
CPT/HCPCS: 99214

== ENCOUNTER → 2023-11-11 09:16 | Outpatient (BNVA) | payer OTHER, SELFPAY | PROVIDERS: PCP Internal Medicine; Visit Provider Nurse Practitioner | DX: Z01.818 Encounter for other preprocedural examination (principal); K22.10 Ulcer of esophagus without bleeding; K21.9 Gastro-esophageal reflux disease without esophagitis; K58.1 Irritable bowel syndrome with constipation; R10.10 Upper abdominal pain, unspecified; D12.6 Benign neoplasm of colon, unspecified | CPT/HCPCS: 99212 ==

== ENCOUNTER 2023-11-22 08:20 | Outpatient (REF) | payer OTHER, SELFPAY ==
[2023-11-22 08:47] LABS: MANUAL DIFF FLAG NO
[2023-11-22 09:14] LABS: Basophils Percent Auto 0.6 % (0-2); Eosinophils Absolute Auto 0.2 X10*3/uL (0.0-0.4); Eosinophils Percent Auto 2.8 % (0-4); Hematocrit 42.7 % (37.0-47.0); Imm Gran Abs Auto 0.01 X10*3/uL (0.00-0.03); Imm Gran Pct Auto 0.1 % (0.0-0.4); Lymphocytes Absolute Auto 2.7 X10*3/uL (1.2-4.9); Lymphocytes Percent Auto 37.9 % (20-40); Mean Corpuscular HGB Conc 32.8 g/dl (31.0-35.0); Mean Corpuscular Hemoglobin 28.5 pg (27.0-33.0); Mean Platelet Volume 10.2 fL (9.4-12.3); Monocytes Absolute Auto 0.5 X10*3/uL (0.1-1.2); Monocytes Percent Auto 6.3 % (2-11); Neutrophils Absolute Auto 3.7 x10*3/uL (2.0-8.3); Neutrophils Percent Auto 52.3 % (45-73); Platelet Count 297 X10*3/uL (160-400); Red Blood Count 4.91 X10*6/uL (4.20-5.50); Red Cell Distribution Width 12.2 % (11.0-16.0); White Blood Count 7.1 X10*3/uL (4.8-10.8)
[2023-11-22 09:21] LABS: Estimated Average Glucose 123 mg/dL; Hemoglobin A1c % 5.9 % (<6.0)
[2023-11-22 09:26] LABS: Appearance Urine Clear; Color Urine Yellow; Glucose Urine UA Negative (Negative); Leukocyte Esterase Urine Small (1+) (Negative); Nitrite Urine Negative (Negative); UMIC TRIGGER UACC YES; Urine Blood Moderate (2+) (Negative); Urine Ketones Negative (Negative); Urine Protein Negative (Neg-Trace)
[2023-11-22 09:32] LABS: Bacteria Urine None Seen (None Seen); Hyaline Casts Urine 0-2 /LPF (0-2); UACC Culture Trigger YES
[2023-11-22 09:50] LABS: Alanine Aminotransferase 18 U/L (0-31); Albumin Level 4.2 g/dL (3.5-5.0); Alkaline Phosphatase 81 U/L (39-117); Anion Gap 9 (12-20); Aspartate Amino Transferase 16 U/L (5-31); Bilirubin Total 0.5 mg/dL (0.0-1.0); Blood Urea Nitrogen 17 mg/dL (9-16); Carbon Dioxide 31 mmol/L (22-29); Chloride 106 mmol/L (96-108); Cholesterol 184 mg/dL (<200); Estimated Glomerular Filt Rate > 60; Glucose Random 98 mg/dL (60-115); HDL Cholesterol 55 mg/dL (>40); LDL Cholesterol Calculated 99 mg/dL (<100); Potassium 4.4 mmol/L (3.3-5.1); Sodium 142 mmol/L (135-145); Total Protein 7.5 g/dL (6.5-8.0); Triglycerides 152 mg/dL (<150)
[2023-11-22 10:07] LABS: Thyroid Stimulating Hormone 1.28 uIU/mL (0.32-4.0); Vitamin D 25-OH Total 30.9 ng/mL (>30)
[2023-11-22 12:04] LABS: Folate 9.1 ng/mL (> or = 4.0); Vitamin B12 448 pg/mL (200-900)
== END 2023-11-22 08:21 | disposition home or self-care (01) ==
LOC: HO.LAB 08:20
PROVIDERS: PCP Internal Medicine; Visit Provider Internal Medicine
DX: R30.0 Dysuria (principal); E78.00 Pure hypercholesterolemia, unspecified; R39.9 Unspecified symptoms and signs involving the genitourinary system
CPT/HCPCS: 36415; 80053; 80061; 81001; 82306; 82607; 82746; 83036; 84439; 84443; 85025; 87086

== ENCOUNTER 2023-11-25 14:18 | Outpatient (AMB) | payer OTHER, SELFPAY ==
[2023-11-25 14:20] VITALS: BP 116/72; PULSE 74; O2SAT 98; BMI 25.8
--- NOTE | 2023-11-25 14:20 | A.OFFPC_ITS ---
Vital Signs 11/25/23 14:20 Height 5 ft 5 in Weight 155 lb BMI 25.8 BP 116/72 Blood Pressure Location Lt brachial Position Sitting Pulse 74 Pulse Source Pulse Oximeter Pulse Oximetry (%) 98 Oxygen Delivery Method Room Air Intake Visit Reasons: 3 month f/u Allergies latex [Latex] Allergy (Mild, Verified 11/25/23 14:21) SWELLING/ITCHING Sulfa (Sulfonamide Antibiotics) Allergy (Mild, Verified 11/25/23 14:21) SWELLING/ITCHING, pruritis sulfamethoxazole [From BACTRIM] Allergy (Unknown, Verified 11/25/23 14:21) ITCHY/HIVES trimethoprim [From BACTRIM] Allergy (Unknown, Verified 11/25/23 14:21) ITCHY/HIVES metoclopramide [From REGLAN] Adverse Reaction (Unknown, Verified 11/25/23 14:21) AGITATION Tobacco use date assessed: 09/02/23 Dental Screening Dental Screen Date: 08/18/23 HPI 3 month f/u HPI Details 52-year-old female with a history of olive zuri chronic idiopathic constipation interstitial cystitis generalized anxiety disorder GERD hypercholesterolemia coming in for follow-up. Last seen in August 2023. Patient's mammogram is up-to-date review of the notes seen gastroenterology diagnosis of erosive esophagitis cleared by cardiology ready for EGD and colono scopy negative cardiac workup CT scan done in September 2023 diverticular disease. complains of low back pain but decline PT and asking for MRI but advised need for PE. anxiety and depression - seeing counselling-but not happy yet [facility] Medical History (Updated 11/25/23 @ 15:12 by Gigi Barrow MD) Pre-op examination Upper respiratory infection Low back pain Breast cancer screening by mammogram Thyroid nodule Oropharyngeal dysphagia UTI (urinary tract infection) Right kidney stone COVID-19 Chest pain Delayed gastric emptying Upper abdominal pain Tachycardia Daytime sleepiness Snoring Migraine Vertigo Cervicalgia Unspecified Eustachian tube disorder, left ear Acute pharyngitis Urgency of micturition Abdominal pain Dysuria Diarrhea Lightheadedness Dizziness Hematuria Acute conjunctivitis of left eye Wound of right leg Abdominal cramping Allergic conjunctivitis Nephrolithiasis Colitis Interstitial cystitis Chronic cough COVID-19 long hauler COVID-19 Elevated lipase Pain in both knees Heart palpitations Vaginal itching Suprapubic pain Vaginal spotting Hematuria Frequency of micturition Myalgia Post-vaccination reaction Palpitations Bilateral lower extremity pain Hearing deficit Frequency of micturition Toe swelling Toe pain, right Vitamin B12 deficiency Scalp cyst Vitamin D deficiency GERD (gastroesophageal reflux disease) Multiple thyroid nodules Lateral meniscal tear Restrictive lung disease Benign hematuria Hemorrhoids Irritable bowel syndrome Cervical disc herniation Impaired glucose tolerance Migraine Hypercholesterolemia Erosive esophagitis Surgical History Hx of colonoscopy H/O esophagogastroduodenoscopy S/P excision of lipoma Hx of tubal ligation History of lumpectomy of left breast Family History Father Skin cancer Mother Skin cancer High blood pressure Heart problem CVA (cerebral vascular accident) Maternal Grandfather Skin cancer Cancer FH: prostate cancer Brother Schizophrenia Other Mental health problem Social History Household Members: None Housing: Apartment Alcohol intake: never Patient Tobacco Use Status: Former Tobacco user Tobacco use type: Cigarette Years Smoked: quit 2007 e-Cigarette/Vaping Use: Never Used Second Hand Smoke Exposure: No service: No Current occupational status: employed Current occupation: [employer] Cognitive needs: No Hearing needs: No Vision needs: No Questionnaire PHQ-9 Over the last 2 weeks, how often have you been bothered by any of the following problems? 1. Little interest or pleasure in doing things: not at all 2. Feeling down, depressed, or hopeless: not at all 3. Trouble falling or staying asleep, or sleeping too much: not at all 4. Feeling tired or having little energy: not at all 5. Poor appetite or overeating: not at all 6. Feeling bad about yourself - or that you are a failure or have let yourself or your family down: not at all 7. Trouble concentrating on things, such as reading the newspaper or watching television: not at all 8. Moving or speaking so slowly that other people could have noticed. Or the opposite - being so fidgety or restless that you have been moving around a lot more than usual: not at all 9. Thoughts that you would be better off or of hurting yourself in some way: not at all Total score: 0 Depression Screening Interpretation: Negative Depression Screening Done: Yes Source: Developed by Drs. Bill Morris, Chiquis Webster, Duke Madera and colleagues, with an educational claudia from [employer]. Thrive Questionnaire Date Thrive assessed: 11/25/23 I am a: Patient What is your living situation today?: I have a steady place to live Within the past 12 months, did the food you bought not last and you didn't have the money to get more?: Never true Within the past 12 months, did you worry whether your food would run out before you got money to buy more?: Never true Do you have trouble paying for medicines?: No Do you have trouble getting transportation to medical appointments?: No Do you have trouble paying your heating and electricity bill?: No Do you have trouble taking care of your child, family member or friend?: No Do you have trouble with day-to-day activities such as bathing, preparing meals, shopping, managing finances, etc.?: No Are you currently unemployed and looking for a job?: No Are you interested in more education?: No Currently or been in a relationship where the following occur: no concerns reported THRIVE Score: 0 AUDIT C Alcohol Use Questionnaire (AUDIT-C) 1. How often do you have a drink containing alcohol?: Monthly or less 2. How many drinks containing alcohol do you have on a typical day when you are drinking?: 1 or 2 Total Score: 1 Score Reviewed/Action Taken: No PACO-7 AMB Questionnaire PACO-7 Date PACO - 7 assessed: 11/25/23 Feeling nervous, anxious, or on edge: 0 = Not at all Not being able to stop or control worryin = Not at all Worrying too much about different things: 0 = Not at all Trouble relaxin = Not at all Being so restless that it is hard to sit still: 0 = Not at all Becoming easily annoyed or irritable: 0 = Not at all Feeling afraid as if something awful might happen: 0 = Not at all Total PACO-7 score (0-4 normal; 5-9 mild; 10-14 moderate; 15-21 severe): 0 Source: Developed by Chiquis Conti, Duke Madera and colleagues, with an educational claudia from [employer]. Physical exam (Primary Care) Vital Signs: Last Vital Signs Pulse 74 11/25/23 14:20 BP 116/72 11/25/23 14:20 Pulse Ox 98 11/25/23 14:20 Oxygen Delivery Method Room Air 11/25/23 14:20 BMI result Body Mass Index 25.8 Tobacco/Smoking Status: Tobacco use Status Tobacco use date assessed 09/02/23 11/25/23 14:22 Patient Tobacco Use Status Former Tobacco user 11/25/23 14:22 Tobacco use type Cigarette 11/25/23 14:22 e-Cigarette/Vaping Use Never Used 11/25/23 14:22 PHQ-9: PHQ-9 Score PHQ-9: Total score 0 11/25/23 14:29 Depression Screening Interpretation: Negative Thrive Assessment: Date of Thrive Assessment Date Thrive assessed 11/25/23 11/25/23 14:22 Currently or been in a relationship where the following occur: no concerns reported Const General: alert; No acute distress Eyes Conjunctivae: conjunctivae normal Resp Auscultation: clear to auscultation bilaterally Cardio Rate: regular rate Rhythm: regular rhythm GI Inspection: Yes normal to inspection Extrem General: Yes normal to inspection and No edema Assessment and Plan Assessment & Plan (1) Erosive esophagitis: Comment: EGD and colon December 2018 , May 2019 5 years Code(s): K22.10 - Ulcer of esophagus without bleeding Plan: Patient has been cleared for EGD and colonoscopy and this is pending. Patient on pantoprazole 40 mg once a day (2) Hypercholesterolemia: Code(s): E78.00 - Pure hypercholesterolemia, unspecified Plan: Avoid fried foods, chicken skin, eggs, butter margarine, pastries and meat. Be it pork or beef they have a lot of cholesterol LDL goal of less than 130 and triglyceride of less than 150. On atorvastatin 20 mg once a day and fenofibrate (3) Impaired glucose tolerance: Code(s): R73.02 - Impaired glucose tolerance (oral) Plan: Decrease the amount of carbohydrate intake, pasta, bread, rice and potatoes are all sugar and that is aside from all the sweet stuff, remember that fruits are good but they are Sweet also. (4) Generalized anxiety disorder: Code(s): F41.1 - Generalized anxiety disorder Plan: presently seeing /talking to a counsellor. (5) Interstitial cystitis (chronic) with hematuria: Code(s): N30.11 - Interstitial cystitis (chronic) with hematuria Plan: Patient follows up with urology (6) SOB (shortness of breath): Code(s): R06.02 - Shortness of breath (7) SOB (shortness of breath): Code(s): R06.02 - Shortness of breath (8) Bilateral hand numbness: Code(s): R20.0 - Anesthesia of skin Orders: Orders Comprehensive Met. Panel 3 Months E78.00 - Pure hypercholesterolemia, unspecified Lipid Panel 3 Months E78.00 - Pure hypercholesterolemia, unspecified PFT pulmonary function test Today R06.02 - Shortness of breath NE electromyogram (EMG) Today R20.0 - Anesthesia of skin NE nerve conduction velocity Today R20.0 - Anesthesia of skin Hemoglobin A1c 3 Months E78.00 - Pure hypercholesterolemia, unspecified Complete Blood Count Auto Diff 3 Months E78.00 - Pure hypercholesterolemia, u nspecified Thyroid Stimulating Hormone 3 Months E78.00 - Pure hypercholesterolemia, unspecified Coding Level of Care Code Est Pt Level 4 (80867) Diagnoses Erosive esophagitis K22.10 Hypercholesterolemia E78.00 Impaired glucose tolerance R73.02 Generalized anxiety disorder F41.1 Interstitial cystitis (chronic) with hematuria N30.11 SOB (shortness of breath) R06.02 Bilateral hand numbness R20.0 Additional Codes PHQ-9 - 55775 - PHQ-9 Billing: ([id number])
== END 2023-11-25 15:24 | disposition home or self-care (01) ==
PROVIDERS: PCP Internal Medicine; Visit Provider Internal Medicine
DX: K22.10 Ulcer of esophagus without bleeding (principal); E78.00 Pure hypercholesterolemia, unspecified; R73.02 Impaired glucose tolerance (oral); F41.1 Generalized anxiety disorder; N30.11 Interstitial cystitis (chronic) with hematuria; R06.02 Shortness of breath; R20.0 Anesthesia of skin
CPT/HCPCS: 99214

== ENCOUNTER 2023-12-12 12:35 | Outpatient (REF) | payer OTHER, SELFPAY ==
--- NOTE | 2023-12-12 12:39 | EMG_ITS ---
Chief complaint: Hand numbness Reason for referral: Evaluate for Carpal Tunnel Syndrome Referred by: Dr. Barrow Procedure done: Bilateral upper extremities NCS/EMG Precautions and/or limitations: Poor tolerance of the test The limb temperature was monitored continuously and remained between 32-36 degrees C during the performance of the NCS. Nerve Conduction Studies Anti Sensory Summary Table ?Stim Site NR Onset (ms) Norm Onset (ms) Peak (ms) Norm Peak (ms) O-P Amp (?V) Norm O-P Amp Site1 Site2 Delta-0 (ms) Dist (cm) Aleksander (m/s) Norm Aleksander (m/s) Left Median Anti Sensory (2nd Digit) Wrist ? 2.8 3.4 <3.6 46.2 >10 Wrist 2nd Digit 2.8 14.0 50 Right Median Anti Sensory (2nd Digit) Wrist ? 2.8 3.6 <3.6 39.0 >10 Wrist 2nd Digit 2.8 14.0 50 Left Ulnar Anti Sensory (5th Digit) Wrist ? 2.2 2.8 <3.7 31.9 >15.0 Wrist 5th Digit 2.2 14.0 64 Right Ulnar Anti Sensory (5th Digit) Wrist ? 2.2 3.0 <3.7 18.8 >15.0 Wrist 5th Digit 2.2 14.0 64 Motor Summary Table ?Stim Site NR Onset (ms) Norm Onset (ms) O-P Amp (mV) Norm O-P Amp iAmp (mV) Amp (1st) (%) Site1 Site2 Delta-0 (ms) Dist (cm) Aleksander (m/s) Norm Aleksander (m/s) Left Median Motor (Abd Poll Brev) Wrist ? 3.2 <3.9 9.7 >4.5 11.9 100.0 Elbow Wrist 3.7 19.5 53 >45 Elbow ? 6.9 9.2 11.3 94.8 Right Median Motor (Abd Poll Brev) Wrist ? 3.7 <3.9 8.0 >4.5 9.1 100.0 Elbow Wrist 3.8 19.5 51 >45 Elbow ? 7.5 6.9 8.2 86.3 Left Ulnar Motor (Abd Dig Minimi) Wrist ? 2.5 <3.0 10.6 >5 12.6 100.0 B Elbow Wrist 2.7 18.0 67 >45 B Elbow ? 5.2 8.6 10.8 81.1 A Elbow B Elbow 1.8 10.0 56 >45 A Elbow ? 7.0 7.7 9.8 72.6 Right Ulnar Motor (Abd Dig Minimi) Wrist ? 2.4 <3.0 12.2 >5 14.4 100.0 B Elbow Wrist 2.9 19.0 66 >45 B Elbow ? 5.3 10.9 13.3 89.3 A Elbow B Elbow 1.7 10.0 59 >45 A Elbow ? 7.0 10.0 12.4 82.0 Comparison Summary Table ?Stim Site NR Peak (ms) Norm Peak (ms) P-T Amp (?V) Site1 Site2 Delta-P (ms) Norm Delta (ms) Left Median/Radial Dig I Comparison (Digit 1 - 10cm) Median ? 2.6 <2.9 34.2 Median Radial 0.3 Radial ? 2.3 <2.8 9.7 Right Median/Radial Dig I Comparison (Digit 1 - 10cm) Median ? 2.8 <2.9 38.5 Median Radial 0.6 Radial ? 2.2 <2.8 21.6 EMG ?Side Muscle Nerve Root Ins Act Fibs Psw Amp Dur Poly Recrt Int Pat Comment Left 1stDorInt Ulnar C8-T1 Nml Nml Nml Nml Nml 0 Nml Complete Left FlexCarRad Median C6-7 Nml Nml Nml Nml Nml 0 Nml Complete Left Biceps Musculocut C5-6 Nml Nml Nml Nml Nml 0 Nml Complete Left Triceps Radial C6-7-8 Nml Nml Nml Nml Nml 0 Nml Complete Left Deltoid Axillary C5-6 Nml Nml Nml Nml Nml 0 Nml Complete FINDINGS: Interlatency difference between right median and radial sensory nerves was 0.6. Otherwise, all motor and sensory nerves tested showed normal latencies, amplitudes and conduction velocities. Concentric needle EMG was performed in selected muscles of the left upper extremity. Study did not reveal signs of electric abnormalities as shown in the table below. Patient started to feel lightheaded. Needle EMG aborted, not done on right upper extremity. IMPRESSION: 1. This is a minimally abnormal study. 2. There is electrodiagnostic evidence for right borderline/very mild median neuropathy at the wrist, that could be consistent with carpal tunnel syndrome. 3. There is no electrodiagnostic evidence for bilateral ulnar neuropathy. 4. There is no electrodiagnostic evidence for left median neuropathy. 5. There is no electrodiagnostic evidence for left brachial plexopathy or cervical radiculopathy. Thank you for your kind referral. Alanna Hickey MD, ALECIA Board Certified, [place] Board [employer] and Rehabilitation (ABPMR) Board Certified, [place] Board of Electrodiagnostic Medicine (ABEM) [place] [id number] [facility]
== END 2023-12-12 12:36 | disposition home or self-care (01) ==
LOC: HO.NEURO 12:35
PROVIDERS: PCP Internal Medicine; Visit Provider Internal Medicine
DX: R20.0 Anesthesia of skin (principal)
CPT/HCPCS: 95886; 95911

== ENCOUNTER → 2023-12-12 12:39 | Outpatient (BNV) | payer OTHER, SELFPAY | PROVIDERS: PCP Internal Medicine; Visit Provider Physical Medicine & Rehabilitation | DX: G56.11 Other lesions of median nerve, right upper limb (principal); R20.2 Paresthesia of skin | CPT/HCPCS: 95886; 95911 ==

== ENCOUNTER 2024-02-06 06:51 | Outpatient (REF) | payer OTHER, SELFPAY ==
[2024-02-06 07:02] LABS: MANUAL DIFF FLAG NO
[2024-02-06 07:04] LABS: Basophils Percent Auto 0.5 % (0-2); Eosinophils Absolute Auto 0.2 X10*3/uL (0.0-0.4); Eosinophils Percent Auto 3.4 % (0-4); Hematocrit 40.9 % (37.0-47.0); Imm Gran Abs Auto 0.02 X10*3/uL (0.00-0.03); Imm Gran Pct Auto 0.3 % (0.0-0.4); Lymphocytes Absolute Auto 2.4 X10*3/uL (1.2-4.9); Lymphocytes Percent Auto 36.4 % (20-40); Mean Corpuscular HGB Conc 34.2 g/dl (31.0-35.0); Mean Corpuscular Hemoglobin 29.7 pg (27.0-33.0); Mean Corpuscular Volume 86.8 fL (80.0-98.0); Mean Platelet Volume 9.9 fL (9.4-12.3); Monocytes Absolute Auto 0.4 X10*3/uL (0.1-1.2); Monocytes Percent Auto 6.3 % (2-11); Neutrophils Absolute Auto 3.4 x10*3/uL (2.0-8.3); Neutrophils Percent Auto 53.1 % (45-73); Platelet Count 292 X10*3/uL (160-400); Red Blood Count 4.71 X10*6/uL (4.20-5.50); Red Cell Distribution Width 12.3 % (11.0-16.0); White Blood Count 6.5 X10*3/uL (4.8-10.8)
[2024-02-06 07:15] LABS: Estimated Average Glucose 120 mg/dL; Hemoglobin A1c % 5.8 % (<6.0)
[2024-02-06 07:29] LABS: Alanine Aminotransferase 19 U/L (0-31); Albumin Level 4.2 g/dL (3.5-5.0); Alkaline Phosphatase 79 U/L (39-117); Anion Gap 11 (12-20); Aspartate Amino Transferase 21 U/L (5-31); Bilirubin Total 0.5 mg/dL (0.0-1.0); Blood Urea Nitrogen 15 mg/dL (9-16); Calcium 9.9 mg/dL (8.4-10.2); Carbon Dioxide 27 mmol/L (22-29); Chloride 108 mmol/L (96-108); Cholesterol 200 mg/dL (<200); Estimated Glomerular Filt Rate > 60; Glucose Random 103 mg/dL (60-115); HDL Cholesterol 50 mg/dL (>40); LDL Cholesterol Calculated 126 mg/dL (<100); Sodium 142 mmol/L (135-145); Total Protein 7.2 g/dL (6.5-8.0); Triglycerides 120 mg/dL (<150)
[2024-02-06 07:46] LABS: Thyroid Stimulating Hormone 2.26 uIU/mL (0.32-4.0)
[2024-02-06 08:27] LABS: Appearance Urine Clear; Color Urine Yellow; Glucose Urine UA Negative (Negative); Leukocyte Esterase Urine Moderate (2+) (Negative); Nitrite Urine Negative (Negative); UMIC TRIGGER UACC YES; Urine Blood Small (1+) (Negative); Urine Ketones Negative (Negative); Urine Protein Negative (Neg-Trace)
[2024-02-06 08:32] LABS: Bacteria Urine None Seen (None Seen); Hyaline Casts Urine 0-2 /LPF (0-2); UACC Culture Trigger YES; WBC Urine 21-50 /HPF (0-5)
== END 2024-02-06 06:52 | disposition home or self-care (01) ==
LOC: HO.LAB 06:51
PROVIDERS: PCP Internal Medicine; Visit Provider Internal Medicine
DX: R30.0 Dysuria (principal); E78.00 Pure hypercholesterolemia, unspecified
CPT/HCPCS: 36415; 80053; 80061; 81001; 81003; 83036; 84443; 85025; 87086

== ENCOUNTER 2024-02-09 13:23 | Outpatient (AMB) | payer OTHER, SELFPAY ==
[2024-02-09 13:24] VITALS: BP 100/72; PULSE 78; O2SAT 96; BMI 25.1
--- NOTE | 2024-02-09 13:24 | MHC.PC.OV ---
Vital Signs 02/09/24 13:24 Height 5 ft 5 in Weight 151 lb 0.5 oz BMI 25.1 BP 100/72 Blood Pressure Location Lt brachial Position Sitting Pulse 78 Pulse Source Pulse Oximeter Pulse Oximetry (%) 96 Oxygen Delivery Method Room Air Intake Visit Reasons: PE Intake Note: Patient is here today for a physical. Foster Care Worker Required: No Allergies latex [Latex] Allergy (Mild, Verified 02/09/24 13:24) SWELLING/ITCHING Sulfa (Sulfonamide Antibiotics) Allergy (Mild, Verified 02/09/24 13:24) SWELLING/ITCHING, pruritis sulfamethoxazole [From BACTRIM] Allergy (Unknown, Verified 02/09/24 13:24) ITCHY/HIVES trimethoprim [From BACTRIM] Allergy (Unknown, Verified 02/09/24 13:24) ITCHY/HIVES metoclopramide [From REGLAN] Adverse Reaction (Unknown, Verified 02/09/24 13:24) AGITATION Medication List - Last Reconciled 02/09/24 by Gigi Barrow MD atorvastatin 20 mg PO DAILY blood pressure monitor (Blood Pressure Kit) As directed cetirizine 10 mg PO DAILY cholecalciferol (vitamin D3) 50 mcg PO DAILY fenofibrate 160 mg PO DAILY fluticasone propionate 50 mcg/actuation 2 sprays intranasal DAILY PRN Lactobacillus acidophilus 100 mg PO DAILY linaclotide (Linzess) 72 mcg PO QAM magnesium oxide 400 mg PO DAILY multivitamin 1 tab PO DAILY ondansetron HCl 4 mg PO Q8H PRN pantoprazole 40 mg PO DAILY sodium,potassium,mag sulfates 17.5-3.13-1.6 gram (Suprep Bowel Prep Kit) 480 mL orally; sodium,potassium,mag sulfates 17.5-3.13-1.6 gram (Suprep Bowel Prep Kit) DILUTE each bottle with 16oz of water; drink first bottle 5pm evening before procedure AND second bottle at 11pm; follow each bottle with at least 32 oz.of water within 1 hour after each bottle Tobacco use date assessed: 09/02/23 Dental Screening Dental Screen Date: 02/09/24 Did you have a dental visit in the last 12 months?: Yes Did you have a dental problem in the last 6 months where you did not have access to dental care?: No Was dental information given to patient?: Patient has dentist HPI PE HPI Details 53-year-old female with a history of hypercholesterolemia impaired glucose tolerance generalized anxiety disorder interstitial cystitis and erosive esophagitis last seen in October 2023 patient is here for physical exam. Mammogram is up-to-date 08/16/2023 colonoscopy December 2018. And will be having another 1 in 03/2024. Patient complains of bilateral hand numbness and in 12/15/2023 had the nerve conduction test showing mild median neuropathy at the right only. dizzy and nauseas once a week. complains of dizziness and discussed tjat alletgy meds can cause drowisness- will change. [facility] Medical History (Updated 02/09/24 @ 14:31 by Gigi Barrow MD) Bilateral hand numbness Pre-op examination Upper respiratory infection Low back pain Breast cancer screening by mammogram Thyroid nodule Oropharyngeal dysphagia UTI (urinary tract infection) Right kidney stone COVID-19 Chest pain Delayed gastric emptying Upper abdominal pain Tachycardia Daytime sleepiness Snoring Migraine Vertigo Cervicalgia Unspecified Eustachian tube disorder, left ear Acute pharyngitis Urgency of micturition Abdominal pain Dysuria Diarrhea Lightheadedness Dizziness Hematuria Acute conjunctivitis of left eye Wound of right leg Abdominal cramping Allergic conjunctivitis Nephrolithiasis Colitis Interstitial cystitis Chronic cough COVID-19 long hauler COVID-19 Elevated lipase Pain in both knees Heart palpitations Vaginal itching Suprapubic pain Vaginal spotting Hematuria Frequency of micturition Myalgia Post-vaccination reaction Palpitations Bilateral lower extremity pain Hearing deficit Frequency of micturition Toe swelling Toe pain, right Vitamin B12 deficiency Scalp cyst Vitamin D deficiency GERD (gastroesophageal reflux disease) Multiple thyroid nodules Lateral meniscal tear Restrictive lung disease Benign hematuria Hemorrhoids Irritable bowel syndrome Cervical disc herniation Impaired glucose tolerance Migraine Hypercholesterolemia Erosive esophagitis Surgical History Hx of colonoscopy H/O esophagogastroduodenoscopy S/P excision of lipoma Hx of tubal ligation History of lumpectomy of left breast Family History Father Skin cancer Mother Skin cancer High blood pressure Heart problem Maternal Grandfather Skin cancer Cancer FH: prostate cancer Brother Schizophrenia Other CVA (cerebral vascular accident) Mental health problem Social History Household Members: None Housing: Apartment Alcohol intake: never Patient Tobacco Use Status: Former Tobacco user Tobacco use type: Cigarette Years Smoked: quit 2007 e-Cigarette/Vaping Use: Never Used Second Hand Smoke Exposure: No service: No Current occupational status: employed 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 1. Little interest or pleasure in doing things: not at all 2. Feeling down, depressed, or hopeless: not at all 3. Trouble falling or staying asleep, or sleeping too much: not at all 4. Feeling tired or having little energy: not at all 5. Poor appetite or overeating: not at all 6. Feeling bad about yourself - or that you are a failure or have let yourself or your family down: not at all 7. Trouble concentrating on things, such as reading the newspaper or watching television: not at all 8. Moving or speaking so slowly that other people could have noticed. Or the opposite - being so fidgety or restless that you have been moving around a lot more than usual: not at all 9. Thoughts that you would be better off or of hurting yourself in some way: not at all Total score: 0 Depression Screening Interpretation: Positive Depression Screening Follow-up: Existing condition and In treatment Depression Screening Done: Yes 32202 - PHQ-9 Billing: Yes Source: Developed by Drs. Bill Morris, Chiquis Webster, Duke Madera and colleagues, with an educational claudia from [employer]. Thrive Questionnaire Date Thrive assessed: 11/25/23 I am a: Patient What is your living situation today?: I have a steady place to live Within the past 12 months, did the food you bought not last and you didn't have the money to get more?: Never true Within the past 12 months, did you worry whether your food would run out before you got money to buy more?: Never true Do you have trouble paying for medicines?: No Do you have trouble getting transportation to medical appointments?: No Do you have trouble paying your heating and electricity bill?: No Do you have trouble taking care of your child, family member or friend?: No Do you have trouble with day-to-day activities such as bathing, preparing meals, shopping, managing finances, etc.?: No Are you currently unemployed and looking for a job?: No Are you interested in more education?: No THRIVE Score: 0 AUDIT C Alcohol Use Questionnaire (AUDIT-C) 1. How often do you have a drink containing alcohol?: Monthly or less 2. How many drinks containing alcohol do you have on a typical day when you are drinking?: 1 or 2 3. How often do you have six or more drinks on one occasion?: Never Total Score: 1 Score Reviewed/Action Taken: No PACO-7 AMB Questionnaire PACO-7 Date PACO - 7 assessed: 11/25/23 Feeling nervous, anxious, or on edge: 0 = Not at all Not being able to stop or control worryin = Not at all Worrying too much about different things: 0 = Not at all Trouble relaxin = Not at all Being so restless that it is hard to sit still: 0 = Not at all Becoming easily annoyed or irritable: 0 = Not at all Feeling afraid as if something awful might happen: 0 = Not at all Total PACO-7 score (0-4 normal; 5-9 mild; 10-14 moderate; 15-21 severe): 0 Source: Developed by Drs. Bill Morris, Chiquis Webster, Duke Madera and colleagues, with an educational claudia from [employer]. Review of Systems Const Denies poor appetite and Denies weakness Eyes Denies no additional complaints ENT Reports Normal hearing present, Denies dizziness, Denies nasal congestion, Denies tinnitus and Denies sore throat Card Denies chest pain, Denies syncope, Denies rapid heart rate and Denies dyspnea Resp Denies cough and Denies dyspnea GI Denies change in stool character, Reports constipation, Denies diarrhea, Denies nausea and Denies vomiting Denies urinary frequency, Denies difficulty voiding and Denies dysuria Neuro Reports Normal hearing present, Denies confusion, Denies dizziness, Denies syncope and Denies weakness Psych Denies confusion Physical exam (Primary Care) Vital Signs: Last Vital Signs Pulse 78 02/09/24 13:24 BP 100/72 02/09/24 13:24 Pulse Ox 96 02/09/24 13:24 Oxygen Delivery Method Room Air 02/09/24 13:24 BMI result Body Mass Index 25.1 Tobacco/Smoking Status: Tobacco use Status Tobacco use date assessed 09/02/23 02/09/24 13:25 Patient Tobacco Use Status Former Tobacco user 02/09/24 13:25 Tobacco use type Cigarette 02/09/24 13:25 e-Cigarette/Vaping Use Never Used 02/09/24 13:25 PHQ-9: PHQ-9 Score PHQ-9: Total score 0 02/09/24 13:50 Depression Screening Interpretation: Positive Depression Screening Follow-up: Existing condition and In treatment Thrive Assessment: Date of Thrive Assessment Date Thrive assessed 11/25/23 02/09/24 13:25 Const General: No confusion Orientation/consciousness: No confusion HENMT Head: Yes normocephalic Ears: external ears normal and TM's normal bilaterally Face and sinus: Yes normal facial exam Mouth: moist mucous membranes Throat: Yes tonsils normal Eyes Conjunctivae: conjunctivae normal Pupils: Equal, round and reactive pupils present and Pupil accommodation reflex normal Direct Ophthalmoscopy: normal light reflex Neck Neck: No lymphadenopathy Thyroid: Thyroid normal Chest Chest palpation & inspection: normal inspection of the chest Resp Effort & Inspection: normal respiratory effort and no audible wheezes Auscultation: clear to auscultation bilaterally, no crackles, no wheezes and lung sounds not diminished Cardio Rate: regular rate Rhythm: regular rhythm Peripheral pulses: radial pulses present and dorsalis pedis present GI Palpation (GI): no masses Auscultation: normal bowel sounds and normoactive bowel sounds Rectal Exam - Female: deferred Skin General skin exam: no rashes or lesions noted Rashes: no rashes Neuro General: No confusion Cranial nerves: Yes Equal, round and reactive pupils present and Yes Normal hearing present Cognition (Neuro): normal cognition Gait exam (Neuro): Normal gait present Motor exam (neuro): 5/5 motor strength present throughout Deep tendon reflexes (DTR's): Right brachioradialis reflex intensity grade: 2+, Left brachioradialis reflex intensity grade: 2+, Right patellar reflex intensity grade: 2+ and Left patellar reflex intensity grade: 2+ Extrem General: No edema Assessment and Plan Assessment & Plan (1) Annual physical exam: Code(s): Z00.00 - Encounter for general adult medical examination without abnormal findings Plan: Patient is advised to eat healthy, keep well hydrated, keep active and have adequate sleep. (2) Mild carpal tunnel syndrome of right wrist: Comment: December 2023 Code(s): G56.01 - Carpal tunnel syndrome, right upper limb Plan: Discussed about the results of the nerve conduction test and advised to wear right wrist brace at nighttime (3) Hypercholesterolemia: Code(s): E78.00 - Pure hypercholesterolemia, unspecified Plan: Avoid fried foods, chicken skin, eggs, butter margarine, pastries and meat. Be it pork or beef they have a lot of cholesterol LDL goal of less than 130 and triglyceride of less than 150 on fenofibrate and atorvastatin (4) Impaired glucose tolerance: Code(s): R73.02 - Impaired glucose tolerance (oral) Plan: Decrease the amount of carbohydrate intake, pasta, bread, rice and potatoes are all sugar and that is aside from all the sweet stuff, remember that fruits are good but they are Sweet also. (5) GERD (gastroesophageal reflux disease): Code(s): K21.9 - Gastro-esophageal reflux disease without esophagitis Qualifiers: Esophagitis presence: without esophagitis Qualified Code(s): K21.9 - Gastro-esophageal reflux disease without esophagitis Plan: Avoid the foods that causes that usually spicy foods, tomato products, juices, coffee, soda and foods that your sensitive to. After eating do not lie down, allow 3-4 hours before in lie down. And keep the head of bed above 30 degrees to avoid the acid from going up. (6) Generalized anxiety disorder: Comment: [facility] Code(s): F41.1 - Generalized anxiety disorder Plan: Stable (7) Interstitial cystitis (chronic) with hematuria: Code(s): N30.11 - Interstitial cystitis (chronic) with hematuria Plan: Follow-up with urology (8) Multiple thyroid nodules: Comment: 03/2020 [place] March 2021 Code(s): E04.2 - Nontoxic multinodular goiter (9) Left arm swelling: Code(s): M79.89 - Other specified soft tissue disorders (10) Mass of left upper extremity: Code(s): R22.32 - Localized swelling, mass and lump, left upper limb Orders: Orders US extremity nonvascular Today R22.32 - Localized swelling, mass and lump, left upper limb Complete Blood Count Auto Diff 3 Months E78.00 - Pure hypercholesterolemia, unspecified Lipid Panel 3 Months E78.00 - Pure hypercholesterolemia, unspecified US thyroid Today E04.2 - Nontoxic multinodular goiter UA CC w/rflx Micro + Cult 3 Months E78.00 - Pure hypercholesterolemia, unspecified, R30.0 - Dysuria Comprehensive Met. Panel 3 Months E78.00 - Pure hypercholesterolemia, unspecified Hemoglobin A1c 3 Months E78.00 - Pure hypercholesterolemia, unspecified Referrals Dermatology Referral D22.9 - Melanocytic nevi, unspecified Neurology Referral G43.909 - Migraine, unspecified, not intractable, without status migrainosus Medications: New fexofenadine 180 mg PO DAILY 90 tabs 2RF Discontinued cetirizine Discontinued Reason: Doctor's Order 10 mg PO DAILY 90 tabs 3RF M54.2 - Cervicalgia Coding Level of Care Code Est Pt Prev Care 40-64y(90129) Diagnoses Annual physical exam Z00.00 Mild carpal tunnel syndrome of right wrist G56.01 Hypercholesterolemia E78.00 Impaired glucose tolerance R73.02 Gastroesophageal reflux disease without esophagitis K21.9 Esophagitis presence: without esophagitis Generalized anxiety disorder F41.1 Interstitial cystitis (chronic) with hematuria N30.11 Multiple thyroid nodules E04.2 Left arm swelling M79.89 Mass of left upper extremity R22.32
== END 2024-02-09 14:39 | disposition home or self-care (01) ==
PROVIDERS: PCP Internal Medicine; Visit Provider Internal Medicine
DX: Z00.00 Encounter for general adult medical examination without abnormal findings (principal); G56.01 Carpal tunnel syndrome, right upper limb; E78.00 Pure hypercholesterolemia, unspecified; R73.02 Impaired glucose tolerance (oral); K21.9 Gastro-esophageal reflux disease without esophagitis; F41.1 Generalized anxiety disorder; N30.11 Interstitial cystitis (chronic) with hematuria; E04.2 Nontoxic multinodular goiter; M79.89 Other specified soft tissue disorders; R22.32 Localized swelling, mass and lump, left upper limb
CPT/HCPCS: 99396

== ENCOUNTER 2024-03-01 12:51 | Outpatient (AMB) | payer OTHER, SELFPAY ==
[2024-03-01 12:52] VITALS: BP 108/76; PULSE 72; O2SAT 98; BMI 25.5
--- NOTE | 2024-03-01 12:52 | MHC.PC.OV ---
Vital Signs 03/01/24 12:52 Height 5 ft 5 in Weight 153 lb 0.2 oz BMI 25.5 BP 108/76 Blood Pressure Location Lt brachial Position Sitting Pulse 72 Pulse Source Pulse Oximeter Pulse Oximetry (%) 98 Oxygen Delivery Method Room Air Intake Visit Reasons: Cut left hand Intake Note: pt c/o accidental cut on left hand since yesterday Enrollment Counselor Required: No Allergies latex [Latex] Allergy (Mild, Verified 03/01/24 12:52) SWELLING/ITCHING Sulfa (Sulfonamide Antibiotics) Allergy (Mild, Verified 03/01/24 12:52) SWELLING/ITCHING, pruritis sulfamethoxazole [From BACTRIM] Allergy (Unknown, Verified 03/01/24 12:52) ITCHY/HIVES trimethoprim [From BACTRIM] Allergy (Unknown, Verified 03/01/24 12:52) ITCHY/HIVES metoclopramide [From REGLAN] Adverse Reaction (Unknown, Verified 03/01/24 12:52) AGITATION Medication List - Last Reconciled 03/01/24 by Rubina Saenz PA-C atorvastatin 20 mg PO DAILY blood pressure monitor (Blood Pressure Kit) As directed cholecalciferol (vitamin D3) 50 mcg PO DAILY fenofibrate 160 mg PO DAILY fexofenadine 180 mg PO DAILY fluticasone propionate 50 mcg/actuation 2 sprays intranasal DAILY PRN Lactobacillus acidophilus 100 mg PO DAILY linaclotide (Linzess) 72 mcg PO QAM magnesium oxide 400 mg PO DAILY multivitamin 1 tab PO DAILY ondansetron HCl 4 mg PO Q8H PRN pantoprazole 40 mg PO DAILY sodium,potassium,mag sulfates 17.5-3.13-1.6 gram (Suprep Bowel Prep Kit) 480 mL orally; sodium,potassium,mag sulfates 17.5-3.13-1.6 gram (Suprep Bowel Prep Kit) DILUTE each bottle with 16oz of water; drink first bottle 5pm evening before procedure AND second bottle at 11pm; follow each bottle with at least 32 oz.of water within 1 hour after each bottle Tobacco use date assessed: 09/02/23 Dental Screening Dental Screen Date: 02/09/24 HPI Cut left hand HPI Details 53-year-old female with past medical history of migraines, generalized anxiety disorder, IBS, GERD with esophagitis, impaired glucose tolerance, hypercholesterolemia last seen by Dr. Barrow 01/2024 coming in for acute problem. Patient states she was opening a package of chicken last night when the knife slipped and punctured her hand. She initially had a hard time controlling the bleeding but it eventually stopped. She is having continued pain and swelling around the area and is concerned she may have hit the bone. She also mentions for the last month she has been lightheaded intermittently, she endorses poor fluid intake. [facility] Medical History (Updated 03/01/24 @ 13:50 by Rubina Saenz PA-C) Lightheadedness Bilateral hand numbness Pre-op examination Upper respiratory infection Low back pain Breast cancer screening by mammogram Thyroid nodule Oropharyngeal dysphagia UTI (urinary tract infection) Right kidney stone COVID-19 Chest pain Delayed gastric emptying Upper abdominal pain Tachycardia Daytime sleepiness Snoring Migraine Vertigo Cervicalgia Unspecified Eustachian tube disorder, left ear Acute pharyngitis Urgency of micturition Abdominal pain Dysuria Diarrhea Dizziness Hematuria Acute conjunctivitis of left eye Wound of right leg Abdominal cramping Allergic conjunctivitis Nephrolithiasis Colitis Interstitial cystitis Chronic cough COVID-19 long hauler COVID-19 Elevated lipase Pain in both knees Heart palpitations Vaginal itching Suprapubic pain Vaginal spotting Hematuria Frequency of micturition Myalgia Post-vaccination reaction Palpitations Bilateral lower extremity pain Hearing deficit Frequency of micturition Toe swelling Toe pain, right Vitamin B12 deficiency Scalp cyst Vitamin D deficiency GERD (gastroesophageal reflux disease) Multiple thyroid nodules Lateral meniscal tear Restrictive lung disease Benign hematuria Hemorrhoids Irritable bowel syndrome Cervical disc herniation Impaired glucose tolerance Migraine Hypercholesterolemia Erosive esophagitis Surgical History Hx of colonoscopy H/O esophagogastroduodenoscopy S/P excision of lipoma Hx of tubal ligation History of lumpectomy of left breast Family History Father Skin cancer Mother Skin cancer High blood pressure Heart problem Maternal Grandfather Skin cancer Cancer FH: prostate cancer Brother Schizophrenia Other CVA (cerebral vascular accident) Mental health problem Social History Household Members: None Housing: Apartment Alcohol intake: never Patient Tobacco Use Status: Former Tobacco user Tobacco use type: Cigarette Years Smoked: quit 2007 e-Cigarette/Vaping Use: Never Used Second Hand Smoke Exposure: No service: No Current occupational status: employed 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 How often do you have a drink containing alcohol?: Monthly or less 2. How many drinks containing alcohol do you have on a typical day when you are drinking?: 1 or 2 3. How often do you have six or more drinks on one occasion?: Never Total Score: 1 Score Reviewed/Action Taken: No PACO-7 AMB Questionnaire PACO-7 Date PACO - 7 assessed: 11/25/23 Source: Developed by Drs. Bill Morris, Chiquis Webster, Duke Madera and colleagues, with an educational claudia from [employer]. Review of Systems Const Denies body aches, Denies chills, Denies fever(s), Reports headache(s) (Intermittent) and Denies poor appetite Eyes Reports no additional complaints ENT Reports dizziness (Intermittent) and Reports headache(s) (Intermittent) Card Denies chest pain, Denies syncope, Denies edema, Denies irregular heart rhythm, Reports lightheadedness and Denies dyspnea Resp Denies dyspnea GI Denies abdominal pain Reports no additional complaints Musc Reports no additional complaints and Denies abnormal gait Skin/Breast Reports as per HPI Neuro Denies abnormal gait, Reports dizziness (Intermittent), Denies syncope and Reports headache(s) (Intermittent) Psych Reports no additional complaints Physical exam (Primary Care) Vital Signs: Last Vital Signs Pulse 72 03/01/24 12:52 BP 108/76 03/01/24 12:52 Pulse Ox 98 03/01/24 12:52 Oxygen Delivery Method Room Air 03/01/24 12:52 BMI result Body Mass Index 25.5 Tobacco/Smoking Status: Tobacco use Status Tobacco use date assessed 09/02/23 03/01/24 12:53 Patient Tobacco Use Status Former Tobacco user 03/01/24 12:53 Tobacco use type Cigarette 03/01/24 12:53 e-Cigarette/Vaping Use Never Used 03/01/24 12:53 Thrive Assessment: Date of Thrive Assessment Date Thrive assessed 11/25/23 03/01/24 12:53 Const General: cooperative, healthy appearing, comfortable and no acute distress Orientation/consciousness: patient oriented x3 HENMT Head: Yes normocephalic Ears: hearing grossly normal bilaterally General nose exam: Normal external nose present Eyes General: appearance normal, both eyes and all related structures Conjunctivae: conjunctivae normal Neck Neck: Yes full ROM and Yes no lymphadenopathy Resp Effort & Inspection: normal respiratory effort Auscultation: clear to auscultation bilaterally, no crackles, no rales, no rhonchi and no wheezes Cardio Rate: regular rate Rhythm: regular rhythm Skin Other: 1 cm well healing laceration over the distal aspect of the 1st metacarpal without surrounding erythema or warmth. Sensation, strength, and range of motion intact in bilateral hands. Pain to palpation over laceration Neuro General: patient oriented x3 Gait exam (Neuro): Normal gait present Extrem General: Yes normal to inspection, Yes full ROM and No edema Psych Affect: normal affect Attitude: cooperative Insight: Good insight present (Psych) Judgement: Good judgement present (Psych) Immunizations tetanus-diphtheria toxoids-Td 2 Lf unit-2 Lf unit/0.5 mL IM suspension Performing Provider: Rubina Saenz PA-C Performing Location: [facility] Administered by: MARLINE Carson on 03/01/24 13:42 Dose Route Admin Location Dispensed Lot Number Expiration Date NDC Financial Risk Manager 0.5 mL IM Left Deltoid 0.5 mL [id number] 09/06/24 [address]-1 [employer] VIS Given Date VIS Provided VIS Publication Date 03/01/24 Single Vaccine 21 Eligibility Eligibility Date Funding Source Not [facility] Eligible 03/01/24 State funds Assessment and Plan Assessment & Plan (1) Laceration of left hand: Code(s): S61.412A - Laceration without foreign body of left hand, initial encounter Plan: We will order had x-ray to evaluate for possible fracture or avulsion of the hand. Strength, range of motion, and sensation are intact bilaterally. Low concern for nerve or tendon involvement. Continue to watch for signs of infection. Antibiotics are not indicated at this time. Tetanus shot updated as it was last administered in 2016 and recommendations are within the last 5 years for lacerations. (2) Lightheadedness: Code(s): R42 - Dizziness and giddiness Plan: Likely secondary to poor fluid intake. Patient drinks about 1 bottle of water per day. Advised to increase water intake and if symptoms persist we will evaluate further. Labs are unremarkable. Plan This note was constructed using voice recognition software. While every effort has been made to ensure accuracy and mail carrier technician, still areas may have been included sometimes these areas may affect the content or meeting of the given symptoms. Total time spent caring for the patient today was 30 minutes. This includes time spent before the visit reviewing the chart, time spent during the visit, and time spent after the visit and documentation. Orders: Orders Td State Immunization Today S61.412A - Laceration without foreign body of left hand, initial encounter Coding Level of Care Code Est Pt Level 4 (45845) Diagnoses Laceration of left hand S61.412A Lightheadedness R42
== END 2024-03-01 13:32 | disposition home or self-care (01) ==
PROVIDERS: PCP Internal Medicine
DX: S61.412A Laceration without foreign body of left hand, initial encounter (principal); Z23 Encounter for immunization
CPT/HCPCS: 90471; 90714; 99214

== ENCOUNTER 2024-03-01 13:37 | Outpatient (REF) | payer OTHER, SELFPAY ==
--- NOTE | ~2024-03-01 | XR_ITS ---
EXAMINATION: XR HAND, LEFT CLINICAL INFORMATION: Laceration without foreign body. COMPARISON: None available. TECHNIQUE: PA, lateral, and oblique views of the left hand. FINDINGS: The bones and soft tissues are normal. No fracture. Alignment is anatomic. Joint spaces are maintained. No erosions or soft tissue calcifications. XR/XR hand LT min 3V IMPRESSION: Normal left hand. No focal soft tissue swelling, gas or foreign body is seen. Electronically signed by: Aniceto Mora MD 03/22/2024 04:15 PM EDT
== END 2024-03-01 13:38 | disposition home or self-care (01) ==
LOC: HO.XRAY 13:37
PROVIDERS: PCP Internal Medicine
DX: S61.412A Laceration without foreign body of left hand, initial encounter (principal)
CPT/HCPCS: 73130

== ENCOUNTER 2024-03-03 12:52 | Outpatient (REF) | payer OTHER, SELFPAY ==
--- NOTE | ~2024-03-03 | US_ITS ---
EXAMINATION: ULTRASOUND SOFT TISSUES LEFT UPPER EXTREMITY CLINICAL INFORMATION: Left arm mass. COMPARISON: None available. TECHNIQUE: Using a linear transducer with grayscale and color modalities, ultrasound examination is performed of the medial left arm soft tissues, with particular attention directed at the area of clinical concern. FINDINGS: The cutaneous, subcutaneous, muscular and fascial planes are unremarkable. In the distal medial forearm subcutaneous layer, corresponding with the palpable finding, a reniform lymph node is seen with dimensions of 0.5 x 0.4 x 0.6 cm. This shows good corticomedullary definition and no focal cortical thickening. No mass or fluid collection is seen. There is no foreign body. US/US extremity nonvascular IMPRESSION: A small nonpathologically enlarged lymph node is seen in the medial left forearm subcutaneous tissues. This is nonspecific and should be managed on a clinical basis. No sizable lymphadenopathy is seen. There is no mass or fluid collection. Electronically signed by: Aniceto Mora MD 03/24/2024 03:47 PM EDT
--- NOTE | ~2024-03-03 | US_ITS ---
EXAMINATION: US THYROID CLINICAL INFORMATION: Nontoxic multinodular goiter. COMPARISON: Ultrasound soft tissue head/neck thyroid dated 07/10/2022 and 06/01/2021. TECHNIQUE: Linear transducer grayscale and color Doppler examination with attention to the region of the thyroid. FINDINGS: SIZE: Measurements of the thyroid lobes and nodules are given in sagittal, anteroposterior and transverse dimensions respectively. Right Thyroid Lobe: 5.4 x 1.5 x 2.0 cm, volume 8.5 mL. Previously 5.3 x 1.7 x 1.9 cm, volume 9.4 mL. Parenchyma: The gland echotexture is homogeneous. Thyroid vascularity is normal. Left Thyroid Lobe: 4.8 x 1.4 x 1.9 cm, volume 6.7 mL. Previously 5.2 x 1.8 x 1.8 cm, volume 9.2 mL. Parenchyma: The gland echotexture is homogeneous. Thyroid vascularity is normal. Isthmus: 0.28 cm in maximum AP dimension. Previously 0.28 cm. Estimated total number of nodules greater than or equal to 1 cm: 0. Well Puller Head nodules are described as follows: 1. Location: Right mid. Size: 0.47 x 0.23 x 0.54 cm, volume 0.03 mL. Previously: 0.46 x 0.32 x 0.53 cm, volume 0.04 mL. Nodule characteristics: Composition: Spongiform (0). Echogenicity: Anechoic (0). Shape: Not taller than wide (0). Margins: Smooth (0). Echogenic Foci: None (0). ACR TI-RADS total points: 0 Previous: 0 ACR TI-RADS category: 1 Previous: 1 Significant change in size (>/= 20% in 2 dimensions and minimal increase of 2 mm or 50% or greater increase in volume): No Change in features: No Change in ACR TI-RADS risk category: No 2. Location: Right mid. Size: 0.66 x 0.42 x 0.55 cm, volume 0.42 mL. Previously: 0.52 x 0.47 x 0.69 cm, volume 0.09 mL. Nodule characteristics: Composition: Spongiform (0). Echogenicity: Anechoic (0). Shape: Not taller than wide (0). Margins: Smooth (0). Echogenic Foci: None (0). ACR TI-RADS total points: 0 Previous: 0 ACR TI-RADS category: 1 Previous: 1 Significant change in size (>/= 20% in 2 dimensions and minimal increase of 2 mm or 50% or greater increase in volume): No Change in features: No Change in ACR TI-RADS risk category: No 3. Location: Right inferior. Size: 0.53 x 0.38 x 0.53 cm, volume 0.06 mL. Previously: 0.60 x 0.36 x 0.45 cm, volume 0.09 mL. Nodule characteristics: Composition: Spongiform (0). Echogenicity: Anechoic (0). Shape: Not taller than wide (0). Margins: Smooth (0). Echogenic Foci: None (0). ACR TI-RADS total points: 0 Previous: 0 ACR TI-RADS category: 1 Previous: 1 Significant change in size (>/= 20% in 2 dimensions and minimal increase of 2 mm or 50% or greater increase in volume): No Change in features: No Change in ACR TI-RADS risk category: No 4. Location: Left inferior. Size: 0.64 x 0.64 x 0.65 cm, volume 0.14 mL. Previously: Not seen on the previous study. Nodule characteristics: Composition: Solid (2). Echogenicity: Hypoechoic (2). Shape: Not taller than wide (0). Margins: Smooth (0). Echogenic Foci: None (0). ACR TI-RADS total points: 4 ACR TI-RADS category: 4 NODES: No lymphadenopathy is seen in the tissue surrounding the thyroid gland. US/US thyroid IMPRESSION: Multinodular thyroid gland. 0.7 cm left TR 4 thyroid nodule was not previously measured. ACR TI-RADS RECOMMENDATION REFERENCE: Ultrasound-guided fine-needle aspiration, follow up ultrasound, no further followup. * TR1 (0 point) and TR2 (2 points): No FNA or followup * TR3 (3 points): FNA if more than or equal to 2.5 cm in maximum dimension, follow up ultrasound in 1, 3 and 5 years if 1.5 to 2.4 cm in maximum dimension. * TR4 (4-6 points): FNA if more than or equal to 1.5 cm in maximum dimension, follow up ultrasound in 1, 2, 3 and 5 years if 1 to 1.4 cm in maximum dimension. * TR5 (more than or equal to 7 points): FNA if more than or equal to 1 cm in maximum dimension, follow up ultrasound every year for 5 years if 0.5 to 0.9 cm in maximum dimension. * TR3, TR4 or TR5 nodules that are below the size threshold for follow up receive no followup.
== END 2024-03-03 12:53 | disposition home or self-care (01) ==
LOC: HO.US 12:52
PROVIDERS: PCP Internal Medicine; Visit Provider Internal Medicine
DX: R22.32 Localized swelling, mass and lump, left upper limb (principal); E04.2 Nontoxic multinodular goiter
CPT/HCPCS: 76536; 76882

== ENCOUNTER 2024-03-15 09:17 | Outpatient (AMB) | payer OTHER, SELFPAY ==
--- NOTE | 2024-03-15 09:44 | MHC.OFFWIV ---
Intake Vital Signs 03/15/24 09:46 Height 5 ft 5 in Weight 154 lb BMI 25.6 BP 110/72 Blood Pressure Location Lt brachial Position Sitting Pulse 67 Pulse Source Pulse Oximeter Temp 98.3 F Temp Source Oral Pulse Oximetry (%) 98 Oxygen Delivery Method Room Air Intake Visit Reasons: EP- LT ear in pain Intake Note: pt c/o LT ear pain and throat pain, head pressure . Started yesterday Patient Tobacco Use Status: Former Tobacco user Allergies latex [Latex] Allergy (Mild, Verified 03/15/24 09:49) SWELLING/ITCHING Sulfa (Sulfonamide Antibiotics) Allergy (Mild, Verified 03/15/24 09:49) SWELLING/ITCHING, pruritis sulfamethoxazole [From BACTRIM] Allergy (Unknown, Verified 03/15/24 09:49) ITCHY/HIVES trimethoprim [From BACTRIM] Allergy (Unknown, Verified 03/15/24 09:49) ITCHY/HIVES metoclopramide [From REGLAN] Adverse Reaction (Unknown, Verified 03/15/24 09:49) AGITATION Do you need a note to return to daycare/school/sports/work: No HPI HPI Comments History of Present Illness Details Patient is a 53-year-old female complaining of 2 days of left ear pain that radiates down the left side of her neck, she states she hears like a ringing in her ear as well as head pressure. She denies actual changes in her hearing. She states her throat hurts a little bit but she denies any coughing or head congestion or sinus pain or fevers or body aches. She has not taken any medications to make her ear feel better. She states she does not like taking penicillins as they make her stomach very upset and is asking for something to treat her ear infection that is not a penicillin. [facility] Medical History (Updated 03/15/24 @ 10:16 by Raquel Zarate PA-C) Lightheadedness Bilateral hand numbness Pre-op examination Upper respiratory infection Low back pain Breast cancer screening by mammogram Thyroid nodule Oropharyngeal dysphagia UTI (urinary tract infection) Right kidney stone COVID-19 Chest pain Delayed gastric emptying Upper abdominal pain Tachycardia Daytime sleepiness Snoring Migraine Vertigo Cervicalgia Unspecified Eustachian tube disorder, left ear Acute pharyngitis Urgency of micturition Abdominal pain Dysuria Diarrhea Dizziness Hematuria Acute conjunctivitis of left eye Wound of right leg Abdominal cramping Allergic conjunctivitis Nephrolithiasis Colitis Interstitial cystitis Chronic cough COVID-19 long hauler COVID-19 Elevated lipase Pain in both knees Heart palpitations Vaginal itching Suprapubic pain Vaginal spotting Hematuria Frequency of micturition Myalgia Post-vaccination reaction Palpitations Bilateral lower extremity pain Hearing deficit Frequency of micturition Toe swelling Toe pain, right Vitamin B12 deficiency Scalp cyst Vitamin D deficiency GERD (gastroesophageal reflux disease) Multiple thyroid nodules Lateral meniscal tear Restrictive lung disease Benign hematuria Hemorrhoids Irritable bowel syndrome Cervical disc herniation Impaired glucose tolerance Migraine Hypercholesterolemia Erosive esophagitis Surgical History Hx of colonoscopy H/O esophagogastroduodenoscopy S/P excision of lipoma Hx of tubal ligation History of lumpectomy of left breast Family History Father Skin cancer Mother Skin cancer High blood pressure Heart problem Maternal Grandfather Skin cancer Cancer FH: prostate cancer Brother Schizophrenia Other CVA (cerebral vascular accident) Mental health problem Social History Household Members: None Housing: Apartment Alcohol intake: never Patient Tobacco Use Status: Former Tobacco user Tobacco use type: Cigarette Years Smoked: quit 2007 e-Cigarette/Vaping Use: Never Used Second Hand Smoke Exposure: No service: No Current occupational status: employed 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 Cognitive needs: No Hearing needs: No Vision needs: No Review of Systems Const All systems reviewed & are unremarkable except as noted in HPI and below Physical Exam Vital Signs: Last Vital Signs Temp 98.3 F 03/15/24 09:46 Pulse 67 03/15/24 09:46 BP 110/72 03/15/24 09:46 Pulse Ox 98 03/15/24 09:46 Oxygen Delivery Method Room Air 03/15/24 09:46 BMI result Body Mass Index 25.6 Const General: cooperative, healthy appearing, comfortable and no acute distress Orientation/consciousness: patient oriented x3 Limitations: no limitations HEENT Head: Yes normal to inspection Ears: hearing grossly normal bilaterally, external ears normal, TM normal on the right, mastoids normal, Abnormal EAC present (left) erythema, edema and EAC tenderness; no otic discharge and TM abnormal (left) wth effusion and with loss of landmarks General nose exam: Normal external nose present, Normal nares present and No nasal discharge present Face and sinus: Yes normal facial exam and Yes sinuses nontender Mouth: Normal oral and palatal mucosa present and moist mucous membranes Throat: Yes tonsils normal, Yes uvula midline and Yes posterior oropharynx abnormal (Erythema) Eyes General: appearance normal, both eyes and all related structures Neck Neck: Yes normal visual inspection Resp Effort & Inspection: normal respiratory effort, able to speak in complete sentences, no respiratory distress, not tachypneic, no tripod positioning and no use of accessory muscles Skin General skin exam: no rashes or lesions noted Neuro General: patient oriented x3 Extrem General: Yes normal to inspection and Yes no clubbing, cyanosis or edema Assessment & Plan Assessment & Plan (1) Otitis media: Code(s): H66.90 - Otitis media, unspecified, unspecified ear Qualifiers: Otitis media type: mucoid Chronicity: acute Laterality: left Qualified Code(s): H65.192 - Other acute nonsuppurative otitis media, left ear Plan: As requested by patient, I sent a cephalosporin instead of amoxicillin/penicillin per patient request due to GI upset with amoxicillin (2) Otitis externa: Code(s): H60.90 - Unspecified otitis externa, unspecified ear Qualifiers: Otitis externa type: swimmer's ear Chronicity: acute Laterality: left Qualified Code(s): H60.332 - Swimmer's ear, left ear Plan: Sent drops to pharmacy Plan See above Medications: New [id number] 3.5-10,000-1 mg/mL-unit/mL-% 4 drps otic (ear) left Q8H 7 days 10 mL 0RF cefuroxime axetil 500 mg PO Q12H 10 tabs 0RF Coding Level of Care Code Est Pt Level 3 (98920) Diagnoses Acute mucoid otitis media of left ear H65.192 Otitis media type: mucoid Chronicity: acute Laterality: left Acute swimmer's ear of left side H60.332 Otitis externa type: swimmer's ear Chronicity: acute Laterality: left
[2024-03-15 09:46] VITALS: BP 110/72; PULSE 67; TEMP 36.8; O2SAT 98; BMI 25.6
== END 2024-03-15 10:43 | disposition home or self-care (01) ==
PROVIDERS: PCP Internal Medicine; Visit Provider Physician Assistant
DX: H65.192 Other acute nonsuppurative otitis media, left ear (principal); H60.332 Swimmer's ear, left ear
CPT/HCPCS: 99213

== ENCOUNTER 2024-03-25 10:45 | Outpatient (AMB) | payer OTHER, SELFPAY ==
[2024-03-25 10:49] VITALS: BP 128/70; PULSE 75; O2SAT 98; BMI 25.3
--- NOTE | 2024-03-25 10:49 | A.OFFPC_ITS ---
Vital Signs 03/25/24 10:49 Height 5 ft 5 in Weight 152 lb BMI 25.3 BP 128/70 Blood Pressure Location Lt brachial Position Sitting Pulse 75 Pulse Source Pulse Oximeter Pulse Oximetry (%) 98 Oxygen Delivery Method Room Air Intake Visit Reasons: ear infection Allergies latex [Latex] Allergy (Mild, Verified 03/25/24 10:49) SWELLING/ITCHING Sulfa (Sulfonamide Antibiotics) Allergy (Mild, Verified 03/25/24 10:49) SWELLING/ITCHING, pruritis sulfamethoxazole [From BACTRIM] Allergy (Unknown, Verified 03/25/24 10:49) ITCHY/HIVES trimethoprim [From BACTRIM] Allergy (Unknown, Verified 03/25/24 10:49) ITCHY/HIVES metoclopramide [From REGLAN] Adverse Reaction (Unknown, Verified 03/25/24 10:49) AGITATION Tobacco use date assessed: 09/02/23 Dental Screening Dental Screen Date: 02/09/24 HPI ear infection HPI Details 53-year-old female with a history of olive zuri constipation generalized anxiety disorder GERD impaired glucose tolerance hypercholesterolemia coming in for follow-up. Patient was recently seen by the physician phlebotomist lab assistant for left hand laceration and lightheadedness. Patient comes in for follow-up. Patient's mammogram is up-to-date colonoscopy is up-to-date seen in the Urgent Center in 03/16/2024 for left ear pain and treated with antibiotics. Patient was also noted to have left upper extremity mass an ultrasound done showing lymph nodes but nothing pathologic. L ear tinnitus 2 weeks , sore throat , no cough, PFSH Medical History (Updated 03/25/24 @ 11:41 by Gigi Barrow MD) Lightheadedness Bilateral hand numbness Pre-op examination Upper respiratory infection Low back pain Breast cancer screening by mammogram Thyroid nodule Oropharyngeal dysphagia UTI (urinary tract infection) Right kidney stone COVID-19 Chest pain Delayed gastric emptying Upper abdominal pain Tachycardia Daytime sleepiness Snoring Migraine Vertigo Cervicalgia Unspecified Eustachian tube disorder, left ear Acute pharyngitis Urgency of micturition Abdominal pain Dysuria Diarrhea Dizziness Hematuria Acute conjunctivitis of left eye Wound of right leg Abdominal cramping Allergic conjunctivitis Nephrolithiasis Colitis Interstitial cystitis Chronic cough COVID-19 long hauler COVID-19 Elevated lipase Pain in both knees Heart palpitations Vaginal itching Suprapubic pain Vaginal spotting Hematuria Frequency of micturition Myalgia Post-vaccination reaction Palpitations Bilateral lower extremity pain Hearing deficit Frequency of micturition Toe swelling Toe pain, right Vitamin B12 deficiency Scalp cyst Vitamin D deficiency GERD (gastroesophageal reflux disease) Multiple thyroid nodules Lateral meniscal tear Restrictive lung disease Benign hematuria Hemorrhoids Irritable bowel syndrome Cervical disc herniation Impaired glucose tolerance Migraine Hypercholesterolemia Erosive esophagitis Surgical History Hx of colonoscopy H/O esophagogastroduodenoscopy S/P excision of lipoma Hx of tubal ligation History of lumpectomy of left breast Family History Father Skin cancer Mother Skin cancer High blood pressure Heart problem Maternal Grandfather Skin cancer Cancer FH: prostate cancer Brother Schizophrenia Other CVA (cerebral vascular accident) Mental health problem Social History Household Members: None Housing: Apartment Alcohol intake: never Patient Tobacco Use Status: Former Tobacco user Tobacco use type: Cigarette Years Smoked: quit 2007 e-Cigarette/Vaping Use: Never Used Second Hand Smoke Exposure: No service: No Current occupational status: employed 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 1. Little interest or pleasure in doing things: not at all 2. Feeling down, depressed, or hopeless: not at all 3. Trouble falling or staying asleep, or sleeping too much: not at all 4. Feeling tired or having little energy: not at all 5. Poor appetite or overeating: not at all 6. Feeling bad about yourself - or that you are a failure or have let yourself or your family down: not at all 7. Trouble concentrating on things, such as reading the newspaper or watching television: not at all 8. Moving or speaking so slowly that other people could have noticed. Or the opposite - being so fidgety or restless that you have been moving around a lot more than usual: not at all 9. Thoughts that you would be better off or of hurting yourself in some way: not at all Total score: 0 Depression Screening Interpretation: Positive Depression Screening Follow-up: Existing condition and In treatment Depression Screening Done: Yes 19082 - PHQ-9 Billing: Yes Source: Developed by Drs. Bill Morris, Duke Walker and colleagues, with an educational claudia from [employer]. Thrive Questionnaire Date Thrive assessed: 11/25/23 AUDIT C Alcohol Use Questionnaire (AUDIT-C) 1. How often do you have a drink containing alcohol?: Monthly or less 2. How many drinks containing alcohol do you have on a typical day when you are drinking?: 1 or 2 3. How often do you have six or more drinks on one occasion?: Never Total Score: 1 Score Reviewed/Action Taken: No PACO-7 AMB Questionnaire PACO-7 Date PACO - 7 assessed: 11/25/23 Source: Developed by Drs. Bill Morris, Chiquis Webster, Duke Madera and colleagues, with an educational claudia from [employer]. Physical exam (Primary Care) Vital Signs: Last Vital Signs Pulse 75 03/25/24 10:49 BP 128/70 03/25/24 10:49 Pulse Ox 98 03/25/24 10:49 Oxygen Delivery Method Room Air 03/25/24 10:49 BMI result Body Mass Index 25.3 Tobacco/Smoking Status: Tobacco use Status Tobacco use date assessed 09/02/23 03/25/24 10:50 Patient Tobacco Use Status Former Tobacco user 03/25/24 10:50 Tobacco use type Cigarette 03/25/24 10:50 e-Cigarette/Vaping Use Never Used 03/25/24 10:50 PHQ-9: PHQ-9 Score PHQ-9: Total score 0 03/25/24 10:56 Depression Screening Interpretation: Positive Depression Screening Follow-up: Existing condition and In treatment Thrive Assessment: Date of Thrive Assessment Date Thrive assessed 11/25/23 03/25/24 10:50 Const General: alert; No acute distress Eyes Conjunctivae: conjunctivae normal Resp Auscultation: clear to auscultation bilaterally Cardio Rate: regular rate Rhythm: regular rhythm GI Inspection: Yes normal to inspection Extrem General: Yes normal to inspection and No edema Assessment and Plan Assessment & Plan (1) Otitis externa: Code(s): H60.90 - Unspecified otitis externa, unspecified ear Qualifiers: Otitis externa type: swimmer's ear Chronicity: acute Laterality: left Qualified Code(s): H60.332 - Swimmer's ear, left ear Plan: Patient was seen in the Urgent Center and had antibiotics treatment (2) Mass of left upper extremity: Code(s): R22.32 - Localized swelling, mass and lump, left upper limb Plan: Ultrasound done 9 pathologic, reassurance (3) Hypercholesterolemia: Code(s): E78.00 - Pure hypercholesterolemia, unspecified Plan: Avoid fried foods, chicken skin, eggs, butter margarine, pastries and meat. Be it pork or beef they have a lot of cholesterol LDL goal of less than 130 and triglyceride of less than 150 on atorvastatin (4) Impaired glucose tolerance: Code(s): R73.02 - Impaired glucose tolerance (oral) Plan: Decrease the amount of carbohydrate intake, pasta, bread, rice and potatoes are all sugar and that is aside from all the sweet stuff, remember that fruits are good but they are Sweet also. (5) GERD (gastroesophageal reflux disease): Code(s): K21.9 - Gastro-esophageal reflux disease without esophagitis Qualifiers: Esophagitis presence: without esophagitis Qualified Code(s): K21.9 - Gastro-esophageal reflux disease without esophagitis (6) Tubular adenoma of colon: Code(s): D12.6 - Benign neoplasm of colon, unspecified Plan: Patient has an upcoming schedule with Gastroenterology for colonoscopy (7) Multiple thyroid nodules: Comment: 03/2020 US March 202102/2024 Code(s): E04.2 - Nontoxic multinodular goiter Plan: US done 02/2024 (8) Allergic rhinitis: Code(s): J30.9 - Allergic rhinitis, unspecified Plan: on zyrtec, added azelastine Coding Level of Care Code Est Pt Level 4 (26324) Diagnoses Acute swimmer's ear of left side H60.332 Otitis externa type: swimmer's ear Chronicity: acute Laterality: left Mass of left upper extremity R22.32 Hypercholesterolemia E78.00 Impaired glucose tolerance R73.02 Gastroesophageal reflux disease without esophagitis K21.9 Esophagitis presence: without esophagitis Tubular adenoma of colon D12.6 Multiple thyroid nodules E04.2 Allergic rhinitis J30.9
== END 2024-03-25 13:53 | disposition home or self-care (01) ==
PROVIDERS: PCP Internal Medicine; Visit Provider Internal Medicine
DX: H60.332 Swimmer's ear, left ear (principal); R22.32 Localized swelling, mass and lump, left upper limb; E78.00 Pure hypercholesterolemia, unspecified; R73.02 Impaired glucose tolerance (oral); K21.9 Gastro-esophageal reflux disease without esophagitis; D12.6 Benign neoplasm of colon, unspecified; E04.2 Nontoxic multinodular goiter; J30.9 Allergic rhinitis, unspecified
CPT/HCPCS: 99214

== ENCOUNTER 2024-04-08 06:27 | Day surgery (SDC) | payer OTHER, SELFPAY ==
[2024-04-06 14:26] VITALS: BMI 25.3
[2024-04-08 06:59] VITALS: BP 111/69; PULSE 69; RESP 16; TEMP 36.6; O2SAT 97; BMI 25.3
[2024-04-08] MEDS: Lactated Ringers 1,000 ML 100 ML IVCONT (07:12)
--- NOTE | 2024-04-08 07:25 | HO.ANESPROP2 ---
Documented by User: Darcy Duong NP 04/07/24 09:09 HPI - Anesthesia Eval Consult details Narrative: 53yo F for Upper Endoscopy and Colonoscopy 2023 cardiac w/u for palps wnl and prn cardiology f/u only PMFSH Active Problems Active Problems: All Active Problems Otitis externa (Acute) Otitis media (Acute) Lightheadedness (Acute) Laceration of left hand (Acute) Mass of left upper extremity (Acute) Left arm swelling (Acute) Mild carpal tunnel syndrome of right wrist (Acute) Annual physical exam (Acute) SOB (shortness of breath) (Acute) Pre-op examination (Acute) Upper abdominal pain (Acute) Cervical spine arthritis with nerve pain (Acute) Osteoarthritis, shoulder (Acute) Shoulder pain, bilateral (Acute) Tachycardia (Acute) Multiple pigmented nevi (Acute) Erosive esophagitis (Acute) Hypercholesterolemia (Acute) Migraine (Acute) Impaired glucose tolerance (Acute) Multiple thyroid nodules (Acute) GERD (gastroesophageal reflux disease) (Acute) Vitamin D deficiency (Acute) Irritable bowel syndrome with constipation (Acute) Generalized anxiety disorder (Acute) Lumbar radiculopathy (Acute) Interstitial cystitis (chronic) with hematuria (Acute) Heart palpitations (Acute) Allergic rhinitis (Acute) Varicose veins of legs (Acute) Varicose veins of right lower extremity with inflammation (Acute) Chronic idiopathic constipation (Acute) Calcium oxalate crystals in urine (Acute) Urinary incontinence (Acute) Tubular adenoma of colon (Acute) Cervicalgia (Acute) Vertigo (Acute) Migraine (Acute) Past Medical History Medical History (Updated 03/25/24 @ 11:41 by Gigi Barrow MD) Lightheadedness Bilateral hand numbness Pre-op examination Upper respiratory infection Low back pain Breast cancer screening by mammogram Thyroid nodule Oropharyngeal dysphagia UTI (urinary tract infection) Right kidney stone COVID-19 Chest pain Delayed gastric emptying Upper abdominal pain Tachycardia Daytime sleepiness Snoring Migraine Vertigo Cervicalgia Unspecified Eustachian tube disorder, left ear Acute pharyngitis Urgency of micturition Abdominal pain Dysuria Diarrhea Dizziness Hematuria Acute conjunctivitis of left eye Wound of right leg Abdominal cramping Allergic conjunctivitis Nephrolithiasis Colitis Interstitial cystitis Chronic cough COVID-19 long hauler COVID-19 Elevated lipase Pain in both knees Heart palpitations Vaginal itching Suprapubic pain Vaginal spotting Hematuria Frequency of micturition Myalgia Post-vaccination reaction Palpitations Bilateral lower extremity pain Hearing deficit Frequency of micturition Toe swelling Toe pain, right Vitamin B12 deficiency Scalp cyst Vitamin D deficiency GERD (gastroesophageal reflux disease) Multiple thyroid nodules Lateral meniscal tear Restrictive lung disease Benign hematuria Hemorrhoids Irritable bowel syndrome Cervical disc herniation Impaired glucose tolerance Migraine Hypercholesterolemia Erosive esophagitis Family History Family History Father Skin cancer Mother Skin cancer High blood pressure Heart problem Maternal Grandfather Skin cancer Cancer FH: prostate cancer Brother Schizophrenia Other CVA (cerebral vascular accident) Mental health problem Family history of problems with anesthesia: Yes Surgical History Surgical History Hx of colonoscopy H/O esophagogastroduodenoscopy S/P excision of lipoma Hx of tubal ligation History of lumpectomy of left breast History of Problems with Anesthesia: Yes Social History Social History Household Members: None Housing: Apartment Alcohol intake: never Patient Tobacco Use Status: Former Tobacco user Tobacco use type: Cigarette Years Smoked: quit 2007 e-Cigarette/Vaping Use: Never Used Second Hand Smoke Exposure: No Use of substances other than those prescribed or required for medical reasons: No Advance Directives: No Advance Directives Information Provided: Yes service: No Current occupational status: employed 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 Cognitive needs: No Hearing needs: No Vision needs: No Meds Allergies Allergy/AdvReac Type Severity Reaction Status Date / Time latex [Latex] Allergy Mild SWELLING/IT Verified 04/08/24 07:16 ROSSANA Sulfa (Sulfonamide Allergy Mild SWELLING/ITCHING, Verified 04/08/24 07:16 Antibiotics) pruritis sulfamethoxazole Allergy Unknown ITCHY/HIVES Verified 04/08/24 07:16 [From BACTRIM] trimethoprim [From BACTRIM] Allergy Unknown ITCHY/HIVES Verified 04/08/24 07:16 metoclopramide [From REGLAN] AdvReac Unknown AGITATION Verified 04/08/24 07:16 Home Medications ?Medication ?Instructions ?Recorded ?Confirmed ?Last Taken ?Type multivitamin 1 tab PO DAILY 11/16/20 04/08/24 Unknown History cetirizine 10 mg tablet 10 mg PO DAILY 03/15/24 04/08/24 Unknown History Exam Height,Weight and Vital Signs: Height 5 ft 5 in Weight 68.946 kg Pertinent Lab Results Pertinent Lab Results: Laboratory Tests 02/06/24 07:01 WBC 6.5 Hgb 14.0 Hct 40.9 Plt Count 292 Sodium 142 Potassium 4.0 Chloride 108 Carbon Dioxide 27 BUN 15 Creatinine 0.84 Narrative Narrative: ECHO 2022 Conclusions: - The left ventricular systolic function is normal. The calculated ejection fraction is 68% by biplane method. - No obvious valvular pathology seen on this study. Holter 2022 Total monitoring time 5 days. Underlying rhythm is sinus. Average ventricular rate 79/Min. Range 47 to 147/Min. Very rare ventricular ectopy. No sustained arrhythmias. No significant pauses or AV blocks. Palpitations, skipping in patient diary correlates with mild sinus tachycardia Assessment and Plan Assessment Anesthesia Assessment: Chart Reviewed Final Anesthetic Review Family History of Problems with Anesthesia: Yes History of Problems with Anesthesia: Yes Documented by User: Jazmin Hassan DO 04/08/24 07:30 [facility] Past Medical History Medical History (Updated 03/25/24 @ 11:41 by Gigi Barrow MD) Lightheadedness Bilateral hand numbness Pre-op examination Upper respiratory infection Low back pain Breast cancer screening by mammogram Thyroid nodule Oropharyngeal dysphagia UTI (urinary tract infection) Right kidney stone COVID-19 Chest pain Delayed gastric emptying Upper abdominal pain Tachycardia Daytime sleepiness Snoring Migraine Vertigo Cervicalgia Unspecified Eustachian tube disorder, left ear Acute pharyngitis Urgency of micturition Abdominal pain Dysuria Diarrhea Dizziness Hematuria Acute conjunctivitis of left eye Wound of right leg Abdominal cramping Allergic conjunctivitis Nephrolithiasis Colitis Interstitial cystitis Chronic cough COVID-19 long hauler COVID-19 Elevated lipase Pain in both knees Heart palpitations Vaginal itching Suprapubic pain Vaginal spotting Hematuria Frequency of micturition Myalgia Post-vaccination reaction Palpitations Bilateral lower extremity pain Hearing deficit Frequency of micturition Toe swelling Toe pain, right Vitamin B12 deficiency Scalp cyst Vitamin D deficiency GERD (gastroesophageal reflux disease) Multiple thyroid nodules Lateral meniscal tear Restrictive lung disease Benign hematuria Hemorrhoids Irritable bowel syndrome Cervical disc herniation Impaired glucose tolerance Migraine Hypercholesterolemia Erosive esophagitis Family History Family History Father Skin cancer Mother Skin cancer High blood pressure Heart problem Maternal Grandfather Skin cancer Cancer FH: prostate cancer Brother Schizophrenia Other CVA (cerebral vascular accident) Mental health problem Family history of problems with anesthesia: No Surgical History Surgical History Hx of colonoscopy H/O esophagogastroduodenoscopy S/P excision of lipoma Hx of tubal ligation History of lumpectomy of left breast History of Problems with Anesthesia: Yes (PONV) Social History Social History Household Members: None Housing: Apartment Alcohol intake: never Patient Tobacco Use Status: Former Tobacco user Tobacco use type: Cigarette Years Smoked: quit 2007 e-Cigarette/Vaping Use: Never Used Second Hand Smoke Exposure: No Use of substances other than those prescribed or required for medical reasons: No Advance Directives: No Advance Directives Information Provided: Yes service: No Current occupational status: employed 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 Cognitive needs: No Hearing needs: No Vision needs: No Meds Allergies Allergy/AdvReac Type Severity Reaction Status Date / Time latex [Latex] Allergy Mild SWELLING/IT Verified 04/08/24 07:16 ROSSANA Sulfa (Sulfonamide Allergy Mild SWELLING/ITCHING, Verified 04/08/24 07:16 Antibiotics) pruritis sulfamethoxazole Allergy Unknown ITCHY/HIVES Verified 04/08/24 07:16 [From BACTRIM] trimethoprim [From BACTRIM] Allergy Unknown ITCHY/HIVES Verified 04/08/24 07:16 metoclopramide [From REGLAN] AdvReac Unknown AGITATION Verified 04/08/24 07:16 Home Medications ?Medication ?Instructions ?Recorded ?Confirmed ?Last Taken ?Type multivitamin 1 tab PO DAILY 11/16/20 04/08/24 Unknown History cetirizine 10 mg tablet 10 mg PO DAILY 03/15/24 04/08/24 Unknown History Exam Exam Date and Time: 04/08/24 0725 Height,Weight and Vital Signs: Height 5 ft 5 in Weight 68.946 kg Vital Signs Temperature 97.9 F 04/08/24 06:59 Pulse Rate 69 04/08/24 06:59 Respiratory Rate 16 04/08/24 06:59 Blood Pressure 111/69 04/08/24 06:59 Pulse Oximetry 97 04/08/24 06:59 Oxygen Delivery Method Room Air 04/08/24 06:59 Temperature 97.9 F 04/08/24 06:59 Pulse Rate 69 04/08/24 06:59 Respiratory Rate 16 04/08/24 06:59 Blood Pressure 111/69 04/08/24 06:59 Pulse Oximetry 97 04/08/24 06:59 Oxygen Delivery Method Room Air 04/08/24 06:59 Airway Mallampati Class: II TM Dist: >3cm Neck ROM: Full Loose/Missing/Broken Teeth: Yes (broken molar right lower jaw) Heart: S1S2 Lungs: CTAB Assessment and Plan Assessment Anesthesia Assessment: Anesthesia Plan Discussed and Chart Reviewed Final Anesthetic Review Family History of Problems with Anesthesia: No History of Problems with Anesthesia: Yes (PONV) NPO: Yes ASA Class: II Final Preanesthetic Review: No Changes in Pt Med Stat, Meds/Allgs Chart Reviewed, Consent Obtained/Reviewed and Anes Risks/Benef Reviewed Patient Risk: Low Procedure Risk: Low Anesthetic Plan Anesthetic Plan: MAC: and Agree w/ Assess. and Plan Disposition: Standard PACU
--- NOTE | 2024-04-08 08:01 | MHC.SHP ---
Pre-Procedural Eval Section A - 24 Hr Update-Section A only Date of Service: 04/08/24 Section B - Complete if H&P > 30 days Chief Complaint: Benign neoplasm of colon, unspecified, esophagitis Details of Present Illness: Pre-op examination Upper respiratory infection Low back pain Breast cancer screening by mammogram Thyroid nodule Oropharyngeal dysphagia UTI (urinary tract infection) Right kidney stone COVID-19 Chest pain Delayed gastric emptying Upper abdominal pain Tachycardia Daytime sleepiness Snoring Migraine Vertigo Cervicalgia Unspecified Eustachian tube disorder, left ear Acute pharyngitis Urgency of micturition Abdominal pain Dysuria Diarrhea Lightheadedness Dizziness Hematuria Acute conjunctivitis of left eye Wound of right leg Abdominal cramping Allergic conjunctivitis Nephrolithiasis Colitis Interstitial cystitis Chronic cough COVID-19 long hauler COVID-19 Elevated lipase Pain in both knees Heart palpitations Vaginal itching Suprapubic pain Vaginal spotting Hematuria Frequency of micturition Myalgia Post-vaccination reaction Palpitations Bilateral lower extremity pain Hearing deficit Frequency of micturition Toe swelling Toe pain, right Vitamin B12 deficiency Scalp cyst Vitamin D deficiency GERD (gastroesophageal reflux disease) Multiple thyroid nodules Lateral meniscal tear Restrictive lung disease Benign hematuria Hemorrhoids Irritable bowel syndrome Cervical disc herniation Impaired glucose tolerance Migraine Hypercholesterolemia Erosive esophagitis Surgical History Hx of colonoscopy H/O esophagogastroduodenoscopy S/P excision of lipoma Hx of tubal ligation History of lumpectomy of left breast Allergies: Allergies Allergy/AdvReac Type Severity Reaction Status Date / Time latex [Latex] Allergy Mild SWELLING/IT Verified 04/08/24 07:16 ROSSANA Sulfa (Sulfonamide Allergy Mild SWELLING/ITCHING, Verified 04/08/24 07:16 Antibiotics) pruritis sulfamethoxazole Allergy Unknown ITCHY/HIVES Verified 04/08/24 07:16 [From BACTRIM] trimethoprim [From BACTRIM] Allergy Unknown ITCHY/HIVES Verified 04/08/24 07:16 metoclopramide [From REGLAN] AdvReac Unknown AGITATION Verified 04/08/24 07:16 Review of Systems Review of Systems Comment: 10 point ROS negative Exam Exam Comment: Gen appear: No acute distress HEENT: no icterus Chest: No overt resp distress Abd: soft, nontender, nondistended Psych: Stable affect, answering questions appropriately Neuro: A/Ox3 noted to move all extremities spontaneously Ext: no peripheral edema Plan Diagnosis/Plan: Unchanged I have reviewed the history and physical and performed a pertinent physical examination on my patient. No changes have occurred unless specified. Time Spent With Patient Time: Total time managing care of this patient today ____ minutes.
--- NOTE | 2024-04-08 08:30 | P.OPN-COLO_ITS ---
Colonoscopy Operative Note Operative Note Date of Service: 04/08/24 Narrative: Procedure: Upper endoscopy and colonoscopy Indication: Esophagitis, abd pain, screening Endoscopist: Yenny Walls MD Anesthesia Provider: Dr Jazmin Hassan Anesthesia type: MAC Instrument: [id number] and [id number] EGD Procedure:?? The procedure, indications, preparation and potential complications were reviewed with the patient, who indicated understanding and gave written informed consent to proceed. The endoscope was introduced through the mouth, and advanced to the 2nd part of the duodenum. The mucosa was carefully examined on slow withdrawal of the endoscope. The patient tolerated the procedure well. There were no immediate complications.? EGD Findings:? * Esophagus:? Normal esophageal mucosa was noted. The Z-line was at 39 cm. Cold forceps biopsies were taken from the lower esophagus. * Stomach:? Normal gastric mucosa. Retroflexion was performed in the cardia. Random cold forceps biopsies were taken from the stomach. * Duodenum:? Normal duodenal mucosa. Cold forceps biopsies were taken from the duodenal bulb and 2nd portion of the duodenum to rule out celiac sprue. Colonoscopy Procedure:? The patient was then turned for the colonoscopy. A digital rectal exam was performed which was normal.? A distal attachment cap was affixed to the tip of the scope and the colonoscope was then inserted through the anus and advanced t hrough the colon and advanced to the cecum at 100 cm and terminal ileum.? Appendiceal orifice and ileocecal valve were identified. Mucosa was carefully examined under high definition white light as the instrument was slowly withdrawn in a retrograde panoramic fashion. Retroflexion was performed in ascending colon and rectum. The procedure was not difficult. The quality of the prep was BBPS: 3+3+2 = adequate Withdrawal time 6 minutes Limitations: No limitations Findings: Mucosa: Normal colon and terminal ileum mucosa. Protruding lesions: * Small internal hemorrhoids without stigmata of recent bleeding. Impression: 1. Normal esophagus (biopsy) 2. Normal stomach (biopsy) 3. Normal duodenum (biopsy) 4. Normal colon and terminal ileum mucosa (biopsy) 5. Internal and external hemorrhoids Recommendations:?? * Follow-up path results * Avoid NSAIDs * H Pylori treatment if biopsies + * Repeat colonoscopy for CRC screening in 10 years.
[2024-04-08 08:32] VITALS: BP 99/52; PULSE 51; RESP 16; TEMP 36.6; O2SAT 99
[2024-04-08 08:50] VITALS: BP 109/67; PULSE 62; RESP 18; TEMP 36.6; O2SAT 98
== END 2024-04-08 09:26 | disposition home or self-care (01) ==
PROVIDERS: PCP Internal Medicine; Visit Provider Internal Medicine
PROC: (CPT 45378; principal; 2024-04-08 07:30)
DX: Z12.11 Encounter for screening for malignant neoplasm of colon (principal); Z86.010 Personal history of colon polyps; K57.30 Diverticulosis of large intestine without perforation or abscess without bleeding; K64.8 Other hemorrhoids; K64.4 Residual hemorrhoidal skin tags; K58.9 Irritable bowel syndrome, unspecified; R10.10 Upper abdominal pain, unspecified; K20.80 Other esophagitis without bleeding; K21.9 Gastro-esophageal reflux disease without esophagitis; E78.00 Pure hypercholesterolemia, unspecified; R73.02 Impaired glucose tolerance (oral); R74.8 Abnormal levels of other serum enzymes; E04.2 Nontoxic multinodular goiter; M79.10 Myalgia, unspecified site; R00.2 Palpitations; Z79.899 Other long term (current) drug therapy; Z88.2 Allergy status to sulfonamides; Z91.040 Latex allergy status; Z98.890 Other specified postprocedural states; Z87.891 Personal history of nicotine dependence
CPT/HCPCS: 45378; 43239; 88305; 88342; J2704

== ENCOUNTER → 2024-04-08 06:27 | Outpatient (BNV) | payer OTHER, SELFPAY | PROVIDERS: PCP Internal Medicine; Visit Provider Internal Medicine | DX: Z12.11 Encounter for screening for malignant neoplasm of colon (principal); K64.8 Other hemorrhoids; K20.90 Esophagitis, unspecified without bleeding | CPT/HCPCS: 43239; 45378 ==

== ENCOUNTER 2024-04-12 06:34 | Outpatient (REF) | payer OTHER, SELFPAY ==
[2024-04-12 06:54] LABS: MANUAL DIFF FLAG NO
[2024-04-12 07:50] LABS: Basophils Percent Auto 0.6 % (0-2); Eosinophils Absolute Auto 0.2 X10*3/uL (0.0-0.4); Eosinophils Percent Auto 2.5 % (0-4); Hematocrit 40.8 % (37.0-47.0); Hemoglobin 13.6 g/dl (12.0-16.0); Imm Gran Abs Auto 0.03 X10*3/uL (0.00-0.03); Imm Gran Pct Auto 0.5 % (0.0-0.4); Lymphocytes Absolute Auto 2.4 X10*3/uL (1.2-4.9); Lymphocytes Percent Auto 37.3 % (20-40); Mean Corpuscular HGB Conc 33.3 g/dl (31.0-35.0); Mean Corpuscular Hemoglobin 28.9 pg (27.0-33.0); Mean Corpuscular Volume 86.6 fL (80.0-98.0); Mean Platelet Volume 10.2 fL (9.4-12.3); Monocytes Absolute Auto 0.4 X10*3/uL (0.1-1.2); Monocytes Percent Auto 6.1 % (2-11); Neutrophils Absolute Auto 3.4 x10*3/uL (2.0-8.3); Platelet Count 319 X10*3/uL (160-400); Red Blood Count 4.71 X10*6/uL (4.20-5.50); Red Cell Distribution Width 12.3 % (11.0-16.0); White Blood Count 6.4 X10*3/uL (4.8-10.8)
[2024-04-12 08:06] LABS: Estimated Average Glucose 120 mg/dL; Hemoglobin A1c % 5.8 % (<6.0)
[2024-04-12 08:11] LABS: Alanine Aminotransferase 19 U/L (0-31); Albumin Level 4.1 g/dL (3.5-5.0); Alkaline Phosphatase 85 U/L (39-117); Anion Gap 11 (12-20); Aspartate Amino Transferase 17 U/L (5-31); Bilirubin Total 0.5 mg/dL (0.0-1.0); Blood Urea Nitrogen 22 mg/dL (9-16); Carbon Dioxide 27 mmol/L (22-29); Chloride 107 mmol/L (96-108); Cholesterol 246 mg/dL (<200); Estimated Glomerular Filt Rate > 60; Glucose Random 99 mg/dL (60-115); HDL Cholesterol 48 mg/dL (>40); LDL Cholesterol Calculated 163 mg/dL (<100); Potassium 3.9 mmol/L (3.3-5.1); Sodium 141 mmol/L (135-145); Total Protein 7.2 g/dL (6.5-8.0); Triglycerides 175 mg/dL (<150)
[2024-04-12 08:11] LABS: Appearance Urine Clear; Color Urine Yellow; Glucose Urine UA Negative (Negative); Leukocyte Esterase Urine Trace (Negative); Nitrite Urine Negative (Negative); PH 5.5 (5.0-9.0); UMIC TRIGGER UACC YES; Urine Blood Moderate (2+) (Negative); Urine Ketones Negative (Negative); Urine Protein Negative (Neg-Trace)
[2024-04-12 08:17] LABS: Bacteria Urine None Seen (None Seen); Hyaline Casts Urine 0-2 /LPF (0-2); Squamous Epithelial Cell Urine 0-2 /HPF (0-2); WBC Urine 0-5 /HPF (0-5)
== END 2024-04-12 06:35 | disposition home or self-care (01) ==
LOC: HO.LAB 06:34
PROVIDERS: PCP Internal Medicine; Visit Provider Internal Medicine
DX: E78.00 Pure hypercholesterolemia, unspecified (principal); R73.02 Impaired glucose tolerance (oral); K21.9 Gastro-esophageal reflux disease without esophagitis; F41.1 Generalized anxiety disorder; Z79.899 Other long term (current) drug therapy
CPT/HCPCS: 36415; 80053; 80061; 81001; 83036; 85025; 99212

== ENCOUNTER 2024-04-12 14:30 | Outpatient (AMB) | payer OTHER, SELFPAY ==
--- NOTE | 2024-04-12 14:39 | MHC.PC.OV ---
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 Required: No Accompanied by: Self / Same As Patient Allergies latex [Latex] Allergy (Mild, Verified 04/12/24 14:56) SWELLING/ITCHING Sulfa (Sulfonamide Antibiotics) Allergy (Mild, Verified 04/12/24 14:56) SWELLING/ITCHING, pruritis sulfamethoxazole [From BACTRIM] Allergy (Unknown, Verified 04/12/24 14:56) ITCHY/HIVES trimethoprim [From BACTRIM] Allergy (Unknown, Verified 04/12/24 14:56) ITCHY/HIVES metoclopramide [From REGLAN] Adverse Reaction (Unknown, Verified 04/12/24 14:56) AGITATION Medication List - Last Reconciled 04/12/24 by Gigi Barrow MD atorvastatin 20 mg PO DAILY blood pressure monitor (Blood Pressure Kit) As directed budesonide 32 mcg/actuation 2 sprays intranasal BEDTIME cetirizine 10 mg PO DAILY cholecalciferol (vitamin D3) 50 mcg PO DAILY fenofibrate 160 mg PO DAILY Lactobacillus acidophilus 100 mg PO DAILY magnesium oxide 400 mg PO DAILY multivitamin 1 tab PO DAILY ondansetron HCl 4 mg PO Q8H PRN pantoprazole 40 mg PO DAILY Tobacco use date assessed: 09/02/23 Dental Screening Dental Screen Date: 02/09/24 HPI Hypocholesteremia, GERD HPI Details 53-year-old female with hypercholesterolemia impaired glucose tolerance GERD multiple thyroid nodules tubular adenoma of the colon coming in for follow-up. Last seen in 03/25/2024. Patient's mammogram is up-to-date colonoscopy 04/16/2024 up-to-date patient had colonoscopy done in 04/08/2024 stomach biopsy minimal chronic inactive inflammation. Colonoscopy is negative. patient noted cholesterol high and IGT PFSH Medical History (Updated 04/12/24 @ 15:23 by Gigi Barrow MD) Tachycardia Shoulder pain, bilateral Upper abdominal pain Pre-op examination SOB (shortness of breath) Mass of left upper extremity Left arm swelling Laceration of left hand Lightheadedness Otitis media Otitis externa Bilateral hand numbness Upper respiratory infection Low back pain Breast cancer screening by mammogram Thyroid nodule Oropharyngeal dysphagia UTI (urinary tract infection) Right kidney stone COVID-19 Chest pain Delayed gastric emptying Daytime sleepiness Snoring Migraine Vertigo Cervicalgia Unspecified Eustachian tube disorder, left ear Acute pharyngitis Urgency of micturition Abdominal pain Dysuria Diarrhea Dizziness Hematuria Acute conjunctivitis of left eye Wound of right leg Abdominal cramping Allergic conjunctivitis Nephrolithiasis Colitis Interstitial cystitis Chronic cough COVID-19 long hauler COVID-19 Elevated lipase Pain in both knees Heart palpitations Vaginal itching Suprapubic pain Vaginal spotting Hematuria Frequency of micturition Myalgia Post-vaccination reaction Palpitations Bilateral lower extremity pain Hearing deficit Frequency of micturition Toe swelling Toe pain, right Vitamin B12 deficiency Scalp cyst Vitamin D deficiency GERD (gastroesophageal reflux disease) Multiple thyroid nodules Lateral meniscal tear Restrictive lung disease Benign hematuria Hemorrhoids Irritable bowel syndrome Cervical disc herniation Impaired glucose tolerance Migraine Hypercholesterolemia Erosive esophagitis Surgical History Hx of colonoscopy H/O esophagogastroduodenoscopy S/P excision of lipoma Hx of tubal ligation History of lumpectomy of left breast Family History Father Skin cancer Mother Skin cancer High blood pressure Heart problem Maternal Grandfather Skin cancer Cancer FH: prostate cancer Brother Schizophrenia Other CVA (cerebral vascular accident) Mental health problem Social History Household Members: None Housing: Apartment Alcohol intake: never Patient Tobacco Use Status: Former Tobacco user Tobacco use type: Cigarette Years Smoked: quit 2007 e-Cigarette/Vaping Use: Never Used Second Hand Smoke Exposure: No service: No Current occupational status: employed 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 Bill Morris, Chiquis Webster, Duke Madera and colleagues, with an educational claudia from [email or web address]. Physical exam (Primary Care) Vital Signs: Last Vital Signs Pulse 58 04/12/24 14:40 BP 112/80 04/12/24 14:40 Pulse Ox 97 04/12/24 14:40 Oxygen Delivery Method Room Air 04/12/24 14:40 BMI result Body Mass Index 25.5 Tobacco/Smoking Status: Tobacco use Status Tobacco use date assessed 09/02/23 04/12/24 14:41 Patient Tobacco Use Status Former Tobacco user 04/12/24 14:41 Tobacco use type Cigarette 04/12/24 14:41 e-Cigarette/Vaping Use Never Used 04/12/24 14:41 Thrive Assessment: Date of Thrive Assessment Date Thrive assessed 11/25/23 04/12/24 14:41 Const General: alert; No acute distress Eyes Conjunctivae: conjunctivae normal Resp Auscultation: clear to auscultation bilaterally Cardio Rate: regular rate Rhythm: regular rhythm GI Inspection: Yes normal to inspection Extrem General: Yes normal to inspection and No edema Assessment and Plan Assessment & Plan (1) Hypercholesterolemia: Code(s): E78.00 - Pure hypercholesterolemia, unspecified Plan: Avoid fried foods, chicken skin, eggs, butter margarine, pastries and meat. Be it pork or beef they have a lot of cholesterol on atorvastatin 20 mg once a day LDL goal of less than 130 and triglyceride of less than 150 (2) Impaired glucose tolerance: Code(s): R73.02 - Impaired glucose tolerance (oral) Plan: Decrease the amount of carbohydrate intake, pasta, bread, rice and potatoes are all sugar and that is aside from all the sweet stuff, remember that fruits are good but they are Sweet also. (3) GERD (gastroesophageal reflux disease): Code(s): K21.9 - Gastro-esophageal reflux disease without esophagitis Qualifiers: Esophagitis presence: without esophagitis Qualified Code(s): K21.9 - Gastro-esophageal reflux disease without esophagitis Plan: Avoid the foods that causes that usually spicy foods, tomato products, juices, coffee, soda and foods that your sensitive to. After eating do not lie down, allow 3-4 hours before in lie down. And keep the head of bed above 30 degrees to avoid the acid from going up. Recent EGD done mild chronic inactive gastritis. (4) Generalized anxiety disorder: Comment: [facility] counseling Code(s): F41.1 - Generalized anxiety disorder Plan: Continue with present medication Coding Level of Care Code Est Pt Level 4 (68714) Diagnoses Hypercholesterolemia E78.00 Impaired glucose tolerance R73.02 Gastroesophageal reflux disease without esophagitis K21.9 Esophagitis presence: without esophagitis Generalized anxiety disorder F41.1
[2024-04-12 14:40] VITALS: BP 112/80; PULSE 58; O2SAT 97; BMI 25.5
== END 2024-04-12 15:48 | disposition home or self-care (01) ==
PROVIDERS: PCP Internal Medicine; Visit Provider Internal Medicine
DX: E78.00 Pure hypercholesterolemia, unspecified (principal); R73.02 Impaired glucose tolerance (oral); K21.9 Gastro-esophageal reflux disease without esophagitis; F41.1 Generalized anxiety disorder

== ENCOUNTER 2024-04-22 13:19 | Outpatient (AMB) | payer OTHER, SELFPAY ==
--- NOTE | 2024-04-22 13:22 | A.OFFVIS_ITS ---
Vital Signs 04/22/24 13:30 Height 5 ft 5 in Weight 154 lb 5.177 oz BMI 25.7 BP 90/56 L Blood Pressure Location Lt brachial Position Sitting Pulse 79 Intake Visit Reasons: s/p egd/colon Intake Note: Christelle presents in the office as a follow up EGD and COLO. CC: She is just here today for the results - no concerns. Allergies latex [Latex] Allergy (Mild, Verified 04/12/24 14:56) SWELLING/ITCHING Sulfa (Sulfonamide Antibiotics) Allergy (Mild, Verified 04/12/24 14:56) SWELLING/ITCHING, pruritis sulfamethoxazole [From BACTRIM] Allergy (Unknown, Verified 04/12/24 14:56) ITCHY/HIVES trimethoprim [From BACTRIM] Allergy (Unknown, Verified 04/12/24 14:56) ITCHY/HIVES metoclopramide [From REGLAN] Adverse Reaction (Unknown, Verified 04/12/24 14:56) AGITATION [employer] Medical History Migraine Tubular adenoma of colon Calcium oxalate crystals in urine Varicose veins of legs Heart palpitations Multiple pigmented nevi Mild carpal tunnel syndrome of right wrist Annual physical exam Chronic idiopathic constipation Tachycardia Shoulder pain, bilateral Upper abdominal pain Pre-op examination SOB (shortness of breath) Mass of left upper extremity Left arm swelling Laceration of left hand Lightheadedness Otitis media Otitis externa Bilateral hand numbness Upper respiratory infection Low back pain Breast cancer screening by mammogram Thyroid nodule Oropharyngeal dysphagia UTI (urinary tract infection) Right kidney stone COVID-19 Chest pain Delayed gastric emptying Daytime sleepiness Snoring Migraine Vertigo Cervicalgia Unspecified Eustachian tube disorder, left ear Acute pharyngitis Urgency of micturition Abdominal pain Dysuria Diarrhea Dizziness Hematuria Acute conjunctivitis of left eye Wound of right leg Abdominal cramping Allergic conjunctivitis Nephrolithiasis Colitis Interstitial cystitis Chronic cough COVID-19 long hauler COVID-19 Elevated lipase Pain in both knees Vaginal itching Suprapubic pain Vaginal spotting Hematuria Frequency of micturition Myalgia Post-vaccination reaction Palpitations Bilateral lower extremity pain Hearing deficit Frequency of micturition Toe swelling Toe pain, right Vitamin B12 deficiency Scalp cyst Vitamin D deficiency GERD (gastroesophageal reflux disease) Multiple thyroid nodules Lateral meniscal tear Restrictive lung disease Benign hematuria Hemorrhoids Irritable bowel syndrome Cervical disc herniation Impaired glucose tolerance Hypercholesterolemia Erosive esophagitis Surgical History Hx of colonoscopy H/O esophagogastroduodenoscopy S/P excision of lipoma Hx of tubal ligation History of lumpectomy of left breast Family History Father Skin cancer Mother Skin cancer High blood pressure Heart problem Maternal Grandfather Skin cancer Cancer FH: prostate cancer Brother Schizophrenia Other CVA (cerebral vascular accident) Mental health problem Social History Household Members: None Housing: Apartment Alcohol intake: never Patient Tobacco Use Status: Former Tobacco user Tobacco use type: Cigarette Years Smoked: quit 2007 e-Cigarette/Vaping Use: Never Used Second Hand Smoke Exposure: No service: No Current occupational status: employed 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
--- NOTE | 2024-04-22 13:22 | A.OFFVIS_ITS ---
Vital Signs 04/22/24 13:30 Height 5 ft 5 in Weight 154 lb 5.177 oz BMI 25.7 BP 90/56 L Blood Pressure Location Lt brachial Position Sitting Pulse 79 Intake Visit Reasons: s/p egd/colon Allergies latex [Latex] Allergy (Mild, Verified 04/12/24 14:56) SWELLING/ITCHING Sulfa (Sulfonamide Antibiotics) Allergy (Mild, Verified 04/12/24 14:56) SWELLING/ITCHING, pruritis sulfamethoxazole [From BACTRIM] Allergy (Unknown, Verified 04/12/24 14:56) ITCHY/HIVES trimethoprim [From BACTRIM] Allergy (Unknown, Verified 04/12/24 14:56) ITCHY/HIVES metoclopramide [From REGLAN] Adverse Reaction (Unknown, Verified 04/12/24 14:56) AGITATION HPI HPI s/p egd/colon: Details: Assessment & Plan (1) Erosive esophagitis: Comment: EGD and colon December 2018 , May 2019 5 years Code(s): K22.10 - Ulcer of esophagus without bleeding Category: Medical (2) GERD (gastroesophageal reflux disease): Code(s): K21.9 - Gastro-esophageal reflux disease without esophagitis Category: Medical Qualifiers: Esophagitis presence: without esophagitis Qualified Code(s): K21.9 - Gastro-esophageal reflux disease without esophagitis (3) Irritable bowel syndrome with constipation: Code(s): K58.1 - Irritable bowel syndrome with constipation Category: Medical (4) Upper abdominal pain: Code(s): R10.10 - Upper abdominal pain, unspecified Category: Medical (5) Tubular adenoma of colon: Code(s): D12.6 - Benign neoplasm of colon, unspecified Category: Medical (6) Pre-op examination: Code(s): Z01.818 - Encounter for other preprocedural examination Category: Medical Plan She has been cleared by cardiology and is ready for her EGD/colonoscopy. She really dislikes the taste of the peg prep. We will try for Suprep as they do not cover Sutab. She was recently seen in our ER for upper abd pain at [facility]. She had unremarkable CT and labs at that time. She has a lot of bloating but I don't want any more pills. She has subjective palpitations and SOB but has had a negative cardiac work up. She has never seen a pulm and I advise her to discuss this with her PCP as she may have something like asthma. No ID problems She has nausea at times from general anesthesia, no other problems with anesthesia or sedation. She is unsure of her family's medical history as they are in [place], but her grandfather had a lot of cancer and she will have to ask her mother about this. She continues on her Linzess 72 micro g, pantoprazole and simethicone. ROV after procedures.and 2 mos to have an appt on the books for her comfort. Orders: Orders EGD/[place] [facility]bo - GI Use Only 11/11/23 D12.6 - Benign neoplasm of colon, unspecified, K22.10 - Ulcer of esophagus without bleeding, R10.10 - Upper abdominal pain, unspecified Medications: New sodium,potassium,mag sulfates 17.5-3.13-1.6 gram (Suprep Bowel Prep Kit) 480 mL orally; 354 mL 0RF Refilled pantoprazole 40 mg PO DAILY 90 tabs 2RF K21.9 - Gastro-esophageal reflux disease without esophagitis Lactobacillus acidophilus 100 mg PO DAILY 90 caps 1RF 90 days EGD/COLONOSCOPY 04/08/24 EGD Findings:? * Esophagus:? Normal esophageal mucosa was noted. The Z-line was at 39 cm. Cold forceps biopsies were taken from the lower esophagus. * Stomach:? Normal gastric mucosa. Retroflexion was performed in the cardia. Random cold forceps biopsies were taken from the stomach. * Duodenum:? Normal duodenal mucosa. Cold forceps biopsies were taken from the duodenal bulb and 2nd portion of the duodenum to rule out celiac sprue. Findings: Mucosa: Normal colon and terminal ileum mucosa. Protruding lesions: * Small internal hemorrhoids without stigmata of recent bleeding. Impression: 1. Normal esophagus (biopsy) 2. Normal stomach (biopsy) 3. Normal duodenum (biopsy) 4. Normal colon and terminal ileum mucosa (biopsy) 5. Internal and external hemorrhoids Recommendations:?? * Follow-up path results * Avoid NSAIDs * H Pylori treatment if biopsies + * Repeat colonoscopy for CRC screening in 10 years. BIOPSY Received: 04/08/24 ADDENDUM REPORT Addendum Addendum #1 Immunostain for H. pylori on B is negative. Control stains appropriately. Electronically Signed By: Mehreen Ramirez 04/13/24 0946 Diagnosis A. Duodenum, biopsy: Duodenal mucosa with preserved villi and no specific change. B. Stomach, random, biopsy: Gastric antral and body mucosa with focal minimal chronic inactive inflammation; negative for intestinal metaplasia and dysplasia. C. Esophagus, lower, biopsy: Squamous mucosa with no specific change; no columnar mucosa present. Comment: (B): Immunostain for H. pylori pending; addendum to follow ? TODAY'S VISIT She is doing well on her qod pantoprazole. She has had some cramping and CIC, but will be going on a detox tea soon which has soon solve the problems. She is agreeable to a 10 year followup. The procedure was well tolerated. The results were explained and the patient is agreeable to the follow-up interval as stated. The bowel pattern has returned to normal. Education was provided to tell any 1st degree relatives about their findings to be sure that they are screened by age 45. Educated that they will be put on a recall list when it is time for their repeat scope but should they move out of state or away from the hospital they will need to remember along with their primary to repeat the procedure in a timely fashion to avoid any adverse complications. She asks for education of diverticulosis versus diverticulitis. Apparently she has a relative who had diverticulitis and was telling her she could not eat many foods. I tell her this is not true since she has never had a problem with infection she has no need to change her diet she simply needs to control her constipation. ROV 6 mos. [facility] Medical History (Updated 04/22/24 @ 15:58 by JOEL Gonzalez) Migraine Tubular adenoma of colon Calcium oxalate crystals in urine Varicose veins of legs Heart palpitations Multiple pigmented nevi Mild carpal tunnel syndrome of right wrist Annual physical exam Chronic idiopathic constipation Tachycardia Shoulder pain, bilateral Upper abdominal pain Pre-op examination SOB (shortness of breath) Mass of left upper extremity Left arm swelling Laceration of left hand Lightheadedness Otitis media Otitis externa Bilateral hand numbness Upper respiratory infection Low back pain Breast cancer screening by mammogram Thyroid nodule Oropharyngeal dysphagia UTI (urinary tract infection) Right kidney stone COVID-19 Chest pain Delayed gastric emptying Daytime sleepiness Snoring Migraine Vertigo Cervicalgia Unspecified Eustachian tube disorder, left ear Acute pharyngitis Urgency of micturition Abdominal pain Dysuria Diarrhea Dizziness Hematuria Acute conjunctivitis of left eye Wound of right leg Abdominal cramping Allergic conjunctivitis Nephrolithiasis Colitis Interstitial cystitis Chronic cough COVID-19 long hauler COVID-19 Elevated lipase Pain in both knees Vaginal itching Suprapubic pain Vaginal spotting Hematuria Frequency of micturition Myalgia Post-vaccination reaction Palpitations Bilateral lower extremity pain Hearing deficit Frequency of micturition Toe swelling Toe pain, right Vitamin B12 deficiency Scalp cyst Vitamin D deficiency GERD (gastroesophageal reflux disease) Multiple thyroid nodules Lateral meniscal tear Restrictive lung disease Benign hematuria Hemorrhoids Irritable bowel syndrome Cervical disc herniation Impaired glucose tolerance Hypercholesterolemia Erosive esophagitis Surgical History (Updated 04/22/24 @ 15:59 by JOEL Gonzalez) Hx of colonoscopy H/O esophagogastroduodenoscopy S/P excision of lipoma Hx of tubal ligation History of lumpectomy of left breast Family History Father Skin cancer Mother Skin cancer High blood pressure Heart problem Maternal Grandfather Skin cancer Cancer FH: prostate cancer Brother Schizophrenia Other CVA (cerebral vascular accident) Mental health problem Social History Household Members: None Housing: Apartment Alcohol intake: never Patient Tobacco Use Status: Former Tobacco user Tobacco use type: Cigarette Years Smoked: quit 2007 e-Cigarette/Vaping Use: Never Used Second Hand Smoke Exposure: No service: No Current occupational status: employed 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 Cognitive needs: No Hearing needs: No Vision needs: No Review of Systems Const Denies fatigue, Denies fever(s), Denies night sweats, Denies poor appetite and Denies weight loss ENT Reports Normal hearing present, Denies dental pain, Denies dysphagia, Denies hearing loss, Denies mouth pain, Denies odynophagia, Denies throat swelling, Denies tongue swelling and Reports other (Dentition adequate) Card Reports no additional complaints Resp Reports no additional complaints GI Details: Denies abdominal pain, Denies melena, Denies bloating, Denies hematochezia, Reports constipation, Reports GI cramping, Denies dysphagia, Denies excessive flatus, Denies early satiety, Reports heartburn, Denies diarrhea, Denies nausea, Denies odynophagia, Denies vomiting and Denies hematemesis Skin/Breast Denies pruritus, Denies lesions, Denies rash and Denies jaundice Neuro Reports Normal hearing present and Denies Abnormal speech present Endo Denies fatigue Aller/Immun Denies throat swelling and Denies tongue swelling Physical Exam Vital Signs: Last Vital Signs Pulse 79 04/22/24 13:30 BP 90/56 L 04/22/24 13:30 BMI result Body Mass Index 25.7 Const General: cooperative, no acute distress, well developed and well groomed Nutritional Appearance: average body habitus and well nourished Orientation/consciousness: oriented to person, oriented to place and oriented to time Limitations: No language barrier HEENT Head: Yes normocephalic and Yes atraumatic Eyes General: appearance normal, both eyes and all related structures Pupils: Equal, round and reactive pupils present Neck Neck: Yes normal visual inspection and Yes no lymphadenopathy Thyroid: Thyroid normal Resp Effort & Inspection: normal respiratory effort and able to speak in complete sentences Auscultation: clear to auscultation bilaterally Cardio Rate: regular rate Rhythm: regular rhythm Heart sounds: Normal, physiologic split S2 sound present Peripheral pulses: radial pulses present and posterior tibial pulses present GI Inspection: No distended and No Abdominal panniculus present Palpation (GI): Soft to palpation, nontender, no guarding, not rigid and No hepatosplenomegaly present Percussion: Yes normal to percussion Auscultation: normal bowel sounds Rectal Exam - Female: deferred Skin General skin exam: no rashes or lesions noted, turgor normal, skin not dry, no jaundice, No spider nevi and no striae Rashes: no rashes Nails: normal Neuro General: oriented to person, oriented to place and oriented to time Cranial nerves: Yes Equal, round and reactive pupils present and Yes Normal hearing present Speech: No Abnormal speech present Extrem General: Yes normal to inspection, No clubbing, No cyanosis and No edema Psych Appearance: grossly normal and well kempt Mental Status: mental status grossly normal Speech and movement: Normal speech and movement present Affect: normal affect Attitude: cooperative Thought process: Normal thought process present and not confabulating Thought content: Normal thought content present Insight: Fair insight present (Psych) Judgement: Fair judgement present (Psych) Assessment & Plan Assessment & Plan (1) Erosive esophagitis: Comment: 02/2024 scope= well healed normal ; EGD and colon December 2018 , May 2019 5 years Code(s): K22.10 - Ulcer of esophagus without bleeding Category: Medical (2) GERD (gastroesophageal reflux disease): Code(s): K21.9 - Gastro-esophageal reflux disease without esophagitis Category: Medical Qualifiers: Esophagitis presence: without esophagitis Qualified Code(s): K21.9 - Gastro-esophageal reflux disease without esophagitis (3) Irritable bowel syndrome with constipation: Code(s): K58.1 - Irritable bowel syndrome with constipation Category: Medical Plan She is doing well on her qod pantoprazole. She has had some cramping and CIC, but will be going on a detox tea soon which has soon solve the problems. She is agreeable to a 10 year followup. The procedure was well tolerated. The results were explained and the patient is agreeable to the follow-up interval as stated. The bowel pattern has returned to normal. Education was provided to tell any 1st degree relatives about their findings to be sure that they are screened by age 45. Educated that they will be put on a recall list when it is time for their repeat scope but should they move out of state or away from the hospital they will need to remember along with their primary to repeat the procedure in a timely fashion to avoid any adverse complications. She asks for education of diverticulosis versus diverticulitis. Apparently she has a relative who had diverticulitis and was telling her she could not eat many foods. I tell her this is not true since she has never had a problem with infection she has no need to change her diet she simply needs to control her constipation. ROV 6 mos. Medications: Refilled pantoprazole 40 mg PO DAILY 90 tabs 2RF K21.9 - Gastro-esophageal reflux disease without esophagitis Coding Level of Care Code Est Pt Level 3 (70379) Diagnoses Erosive esophagitis K22.10 Gastroesophageal reflux disease without esophagitis K21.9 Esophagitis presence: without esophagitis Irritable bowel syndrome with constipation K58.1
[2024-04-22 13:30] VITALS: BP 90/56; PULSE 79; BMI 25.7
== END 2024-04-22 13:59 | disposition home or self-care (01) ==
PROVIDERS: PCP Internal Medicine; Visit Provider Nurse Practitioner
DX: K22.10 Ulcer of esophagus without bleeding (principal); K21.9 Gastro-esophageal reflux disease without esophagitis; K58.1 Irritable bowel syndrome with constipation
CPT/HCPCS: 99213

== ENCOUNTER → 2024-04-22 13:19 | Outpatient (BNVA) | payer OTHER, SELFPAY | PROVIDERS: PCP Internal Medicine; Visit Provider Nurse Practitioner | DX: K22.10 Ulcer of esophagus without bleeding (principal); K21.9 Gastro-esophageal reflux disease without esophagitis; K58.1 Irritable bowel syndrome with constipation; K59.04 Chronic idiopathic constipation | CPT/HCPCS: 99212 ==

== ENCOUNTER 2024-05-31 14:21 | Outpatient (AMB) | payer OTHER, SELFPAY ==
--- NOTE | 2024-05-31 14:28 | MHC.PC.OV ---
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 Accompanied by: Self / Same As Patient Allergies latex [Latex] Allergy (Mild, Verified 05/31/24 14:41) SWELLING/ITCHING Sulfa (Sulfonamide Antibiotics) Allergy (Mild, Verified 05/31/24 14:41) SWELLING/ITCHING, pruritis sulfamethoxazole [From BACTRIM] Allergy (Unknown, Verified 05/31/24 14:41) ITCHY/HIVES trimethoprim [From BACTRIM] Allergy (Unknown, Verified 05/31/24 14:41) ITCHY/HIVES metoclopramide [From REGLAN] Adverse Reaction (Unknown, Verified 05/31/24 14:41) AGITATION Tobacco use date assessed: 09/02/23 Dental Screening Dental Screen Date: 05/31/24 Did you have a dental visit in the last 12 months?: Yes Did you have a dental problem in the last 6 months where you did not have access to dental care?: No Was dental information given to patient?: Patient has dentist HPI Dizziness HPI Details 53-year-old female with a history of hypercholesterolemia impaired glucose tolerance GERD and generalized anxiety disorder last seen in 04/12/2024. Review of the notes was just seen by Gastroenterology in April 22 status post EGD and colonoscopy normal esophagus, stomach duodenum colon and terminal ileum noted external internal hemorrhoids negative H pylori diagnosis of erosive esophagitis healed on pantoprazole every other day. complains of dizzy, had SARABIA, , complains of R sided neck pain after lifting something. , deny ear pain, has nasal congestion PFSH Medical History (Updated 05/31/24 @ 15:04 by Gigi Barrow MD) Dizziness Migraine Tubular adenoma of colon Calcium oxalate crystals in urine Varicose veins of legs Heart palpitations Multiple pigmented nevi Mild carpal tunnel syndrome of right wrist Annual physical exam Chronic idiopathic constipation Tachycardia Shoulder pain, bilateral Upper abdominal pain Pre-op examination SOB (shortness of breath) Mass of left upper extremity Left arm swelling Laceration of left hand Lightheadedness Otitis media Otitis externa Bilateral hand numbness Upper respiratory infection Low back pain Breast cancer screening by mammogram Thyroid nodule Oropharyngeal dysphagia UTI (urinary tract infection) Right kidney stone COVID-19 Chest pain Delayed gastric emptying Daytime sleepiness Snoring Migraine Vertigo Cervicalgia Unspecified Eustachian tube disorder, left ear Acute pharyngitis Urgency of micturition Abdominal pain Dysuria Diarrhea Hematuria Acute conjunctivitis of left eye Wound of right leg Abdominal cramping Allergic conjunctivitis Nephrolithiasis Colitis Interstitial cystitis Chronic cough COVID-19 long hauler COVID-19 Elevated lipase Pain in both knees Vaginal itching Suprapubic pain Vaginal spotting Hematuria Frequency of micturition Myalgia Post-vaccination reaction Palpitations Bilateral lower extremity pain Hearing deficit Frequency of micturition Toe swelling Toe pain, right Vitamin B12 deficiency Scalp cyst Vitamin D deficiency GERD (gastroesophageal reflux disease) Multiple thyroid nodules Lateral meniscal tear Restrictive lung disease Benign hematuria Hemorrhoids Irritable bowel syndrome Cervical disc herniation Impaired glucose tolerance Hypercholesterolemia Erosive esophagitis Surgical History Hx of colonoscopy H/O esophagogastroduodenoscopy S/P excision of lipoma Hx of tubal ligation History of lumpectomy of left breast Family History Father Skin cancer Mother Skin cancer High blood pressure Heart problem Maternal Grandfather Skin cancer Cancer FH: prostate cancer Brother Schizophrenia Other CVA (cerebral vascular accident) Mental health problem Social History Household Members: None Housing: Apartment Alcohol intake: never Patient Tobacco Use Status: Former Tobacco user Tobacco use type: Cigarette Years Smoked: quit 2007 e-Cigarette/Vaping Use: Never Used Second Hand Smoke Exposure: No service: No Current occupational status: employed Current occupation: [employer] Cognitive needs: No Hearing needs: No Vision needs: No Questionnaire Thrive Questionnaire Date Thrive assessed: 11/25/23 PACO-7 AMB Questionnaire PACO-7 Date PACO - 7 assessed: 11/25/23 Source: Developed by Drs. Bill Morris, Chiquis Webster, Duke Madera and colleagues, with an educational claudia from [employer]. Physical exam (Primary Care) Vital Signs: Last Vital Signs Pulse 68 05/31/24 14:29 BP 110/60 05/31/24 14:29 Pulse Ox 98 05/31/24 14:29 Oxygen Delivery Method Room Air 05/31/24 14:29 BMI result Body Mass Index 25.8 Tobacco/Smoking Status: Tobacco use Status Tobacco use date assessed 09/02/23 05/31/24 14:36 Patient Tobacco Use Status Former Tobacco user 05/31/24 14:36 Tobacco use type Cigarette 05/31/24 14:36 e-Cigarette/Vaping Use Never Used 05/31/24 14:36 Thrive Assessment: Date of Thrive Assessment Date Thrive assessed 11/25/23 05/31/24 14:36 Const General: alert; No acute distress Eyes Conjunctivae: conjunctivae normal Resp Auscultation: clear to auscultation bilaterally Cardio Rate: regular rate Rhythm: regular rhythm GI Inspection: Yes normal to inspection Extrem General: Yes normal to inspection and No edema Office Procedures Flu Questionnaire Does the patient have a severe egg allergy?: No Does the patient have severe life threatening allergies?: No Does the patient have a fever or illness today?: No Has the patient ever had Guillain-Wakefield Syndrome?: No Has the patient ever had any past reaction to a flu shot?: No Immunizations Fluarix Triv [id number] (PF) 45 mcg (15 mcg x 3)/0.5 mL IM syringe Performing Provider: Gigi Barrow MD Performing Location[facility] Administered by: MARLINE Herzog on 05/31/24 14:44 Dose Route Admin Location Dispensed Lot Number Expiration Date [facility] Clam Digger 0.5 mL IM Left Deltoid 0.5 mL [id number] 01/24/25 [id number] [employer] Given Date VIS Provided VIS Publication Date 05/31/24 Single Vaccine 21 Eligibility Eligibility Date Funding Source Not [facility] Eligible 05/31/24 Private Coding Level of Care Code Est Pt Level 4 (30311) Diagnoses Erosive esophagitis K22.10 Hypercholesterolemia E78.00 Impaired glucose tolerance R73.02 Generalized anxiety disorder F41.1 Dizziness R42 Assessment & Plan Assessment & Plan (1) Erosive esophagitis: Comment: 02/2024 scope= well healed normal ; EGD and colon December 2018 , May 2019 5 years Code(s): K22.10 - Ulcer of esophagus without bleeding Category: Medical Plan: Avoid the foods that causes that usually spicy foods, tomato products, juices, coffee, soda and foods that your sensitive to. After eating do not lie down, allow 3-4 hours before in lie down. And keep the head of bed above 30 degrees to avoid the acid from going up. EGD done recently healed (2) Hypercholesterolemia: Code(s): E78.00 - Pure hypercholesterolemia, unspecified Category: Medical Plan: Avoid fried foods, chicken skin, eggs, butter margarine, pastries and meat. Be it pork or beef they have a lot of cholesterol LDL goal of less than 130 and triglyceride of less than 150 on atorvastatin 20 mg once a day and fenofibrate 160 mg once a day (3) Impaired glucose tolerance: Code(s): R73.02 - Impaired glucose tolerance (oral) Category: Medical Plan: Decrease the amount of carbohydrate intake, pasta, bread, rice and potatoes are all sugar and that is aside from all the sweet stuff, remember that fruits are good but they are Sweet also. (4) Generalized anxiety disorder: Comment: [facility] counseling Code(s): F41.1 - Generalized anxiety disorder Category: Medical Plan: Continue with counseling and therapy. (5) Dizziness: Code(s): R42 - Dizziness and giddiness Category: Medical Plan: Workup has been negative. Prescription for meclizine sent Orders: Orders Influenza [id number] Immunization Today Z23 - Encounter for immunization Comprehensive Met. Panel Today R73.02 - Impaired glucose tolerance (oral) Complete Blood Count Auto Diff Today E78.00 - Pure hypercholesterolemia, unspecified Lipid Panel Today E78.00 - Pure hypercholesterolemia, unspecified Vitamin B12 and Folate Today E78.00 - Pure hypercholesterolemia, unspecified Vitamin D 25-OH Total Today E78.00 - Pure hypercholesterolemia, unspecified Magnesium Today E78.00 - Pure hypercholesterolemia, unspecified Hemoglobin A1c Today R73.02 - Impaired glucose tolerance (oral) Thyroid Stimulating Hormone Today E78.00 - Pure hypercholesterolemia, unspecified Free T4 (Free Thyroxine) Today E78.00 - Pure hypercholesterolemia, unspecified Medications: New cetirizine 10 mg PO DAILY 90 tabs 2RF E78.00 - Pure hypercholesterolemia, unspecified meclizine 25 mg PO BID PRN 30 tabs 0RF dizziness R42 - Dizziness and giddiness
[2024-05-31 14:29] VITALS: BP 110/60; PULSE 68; O2SAT 98; BMI 25.8
== END 2024-05-31 15:12 | disposition home or self-care (01) ==
LOC: HO.HMCH 14:21
PROVIDERS: PCP Internal Medicine; Visit Provider Internal Medicine
DX: K22.10 Ulcer of esophagus without bleeding (principal); E78.00 Pure hypercholesterolemia, unspecified; R73.02 Impaired glucose tolerance (oral); F41.1 Generalized anxiety disorder; R42 Dizziness and giddiness; Z23 Encounter for immunization

== ENCOUNTER → 2024-05-31 14:21 | Outpatient (BNVA) | payer OTHER, SELFPAY | PROVIDERS: PCP Internal Medicine; Visit Provider Internal Medicine | DX: Z23 Encounter for immunization (principal); K22.10 Ulcer of esophagus without bleeding; E78.00 Pure hypercholesterolemia, unspecified; R73.02 Impaired glucose tolerance (oral); F41.1 Generalized anxiety disorder; R42 Dizziness and giddiness | CPT/HCPCS: 90471; 90656; 99212 ==

== ENCOUNTER 2024-06-26 08:54 | Outpatient (REF) | payer OTHER, SELFPAY ==
[2024-06-26 09:15] LABS: MANUAL DIFF FLAG NO
[2024-06-26 09:35] LABS: Basophils Percent Auto 0.5 % (0-2); Eosinophils Absolute Auto 0.2 X10*3/uL (0.0-0.4); Hematocrit 41.2 % (37.0-47.0); Hemoglobin 13.8 g/dl (12.0-16.0); Imm Gran Abs Auto 0.01 X10*3/uL (0.00-0.03); Imm Gran Pct Auto 0.2 % (0.0-0.4); Lymphocytes Absolute Auto 2.2 X10*3/uL (1.2-4.9); Lymphocytes Percent Auto 35.6 % (20-40); Mean Corpuscular HGB Conc 33.5 g/dl (31.0-35.0); Mean Corpuscular Hemoglobin 28.9 pg (27.0-33.0); Mean Corpuscular Volume 86.4 fL (80.0-98.0); Mean Platelet Volume 10.1 fL (9.4-12.3); Monocytes Absolute Auto 0.4 X10*3/uL (0.1-1.2); Monocytes Percent Auto 7.1 % (2-11); Neutrophils Absolute Auto 3.3 x10*3/uL (2.0-8.3); Neutrophils Percent Auto 53.6 % (45-73); Platelet Count 287 X10*3/uL (160-400); Red Blood Count 4.77 X10*6/uL (4.20-5.50); Red Cell Distribution Width 12.3 % (11.0-16.0); White Blood Count 6.1 X10*3/uL (4.8-10.8)
[2024-06-26 09:39] LABS: Estimated Average Glucose 120 mg/dL; Hemoglobin A1C 138.4899 umol/L; Hemoglobin A1c % 5.8 % (<6.0); Total Hemoglobin (HGBA1C) 3475.2637 umol/L
[2024-06-26 10:12] LABS: Alanine Aminotransferase 20 U/L (0-31); Albumin Level 4.1 g/dL (3.5-5.0); Alkaline Phosphatase 92 U/L (39-117); Anion Gap 10 (12-20); Aspartate Amino Transferase 23 U/L (5-31); Bilirubin Total 0.4 mg/dL (0.0-1.0); Blood Urea Nitrogen 14 mg/dL (9-16); Calcium 9.2 mg/dL (8.4-10.2); Carbon Dioxide 26 mmol/L (22-29); Chloride 108 mmol/L (96-108); Cholesterol 256 mg/dL (<200); Estimated Glomerular Filt Rate > 60; Glucose Random 103 mg/dL (60-115); HDL Cholesterol 50 mg/dL (>40); LDL Cholesterol Calculated 166 mg/dL (<100); Magnesium 1.9 mg/dL (1.6-2.6); Potassium 4.4 mmol/L (3.3-5.1); Sodium 140 mmol/L (135-145); Total Protein 7.1 g/dL (6.5-8.0); Triglycerides 204 mg/dL (<150)
[2024-06-26 10:26] LABS: Free T4 (Free Thyroxine) 1.04 ng/dL (0.71-1.85); Thyroid Stimulating Hormone 1.34 uIU/mL (0.32-4.0); Vitamin D 25-OH Total 30.4 ng/mL (>30)
[2024-06-26 10:42] LABS: Folate 13.4 ng/mL (> or = 4.0); Vitamin B12 465 pg/mL (200-900)
== END 2024-06-26 08:55 | disposition home or self-care (01) ==
LOC: HO.LAB 08:54
PROVIDERS: PCP Internal Medicine; Visit Provider Internal Medicine
DX: E78.00 Pure hypercholesterolemia, unspecified (principal); R73.02 Impaired glucose tolerance (oral)
CPT/HCPCS: 36415; 80053; 80061; 82306; 82607; 82746; 83036; 83735; 84439; 84443; 85025

== ENCOUNTER 2024-06-28 17:15 | Outpatient (AMB) | payer OTHER, SELFPAY ==
--- NOTE | 2024-06-28 17:21 | A.OFFPC_ITS ---
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 Accompanied by: Self / Same As Patient Allergies latex [Latex] Allergy (Mild, Verified 06/28/24 17:22) SWELLING/ITCHING Sulfa (Sulfonamide Antibiotics) Allergy (Mild, Verified 06/28/24 17:22) SWELLING/ITCHING, pruritis sulfamethoxazole [From BACTRIM] Allergy (Unknown, Verified 06/28/24 17:22) ITCHY/HIVES trimethoprim [From BACTRIM] Allergy (Unknown, Verified 06/28/24 17:22) ITCHY/HIVES metoclopramide [From REGLAN] Adverse Reaction (Unknown, Verified 06/28/24 17:22) AGITATION Medication List - Last Reconciled 06/28/24 by Gigi Barrow MD atorvastatin 20 mg PO DAILY blood pressure monitor (Blood Pressure Kit) As directed budesonide 32 mcg/actuation 2 sprays intranasal BEDTIME cholecalciferol (vitamin D3) 50 mcg PO DAILY fenofibrate 160 mg PO DAILY Lactobacillus acidophilus 100 mg PO DAILY loratadine 10 mg PO DAILY magnesium oxide 400 mg PO DAILY meclizine 25 mg PO BID PRN multivitamin 1 tab PO DAILY ondansetron HCl 4 mg PO Q8H PRN pantoprazole 40 mg PO DAILY Tobacco use date assessed: 09/02/23 Dental Screening Dental Screen Date: 05/31/24 HPI Dizziness HPI Details 53-year-old female with a history of ero sive esophagitis hypercholesterolemia impaired glucose tolerance generalized anxiety disorder and dizziness coming in for follow-up last seen last month. [facility] Medical History (Updated 06/28/24 @ 17:32 by Gigi Barrow MD) Dizziness Migraine Tubular adenoma of colon Calcium oxalate crystals in urine Varicose veins of legs Heart palpitations Multiple pigmented nevi Mild carpal tunnel syndrome of right wrist Annual physical exam Chronic idiopathic constipation Tachycardia Shoulder pain, bilateral Upper abdominal pain Pre-op examination SOB (shortness of breath) Mass of left upper extremity Left arm swelling Laceration of left hand Lightheadedness Otitis media Otitis externa Bilateral hand numbness Upper respiratory infection Low back pain Breast cancer screening by mammogram Thyroid nodule Oropharyngeal dysphagia UTI (urinary tract infection) Right kidney stone COVID-19 Chest pain Delayed gastric emptying Daytime sleepiness Snoring Migraine Vertigo Cervicalgia Unspecified Eustachian tube disorder, left ear Acute pharyngitis Urgency of micturition Abdominal pain Dysuria Diarrhea Hematuria Acute conjunctivitis of left eye Wound of right leg Abdominal cramping Allergic conjunctivitis Nephrolithiasis Colitis Interstitial cystitis Chronic cough COVID-19 long hauler COVID-19 Elevated lipase Pain in both knees Vaginal itching Suprapubic pain Vaginal spotting Hematuria Frequency of micturition Myalgia Post-vaccination reaction Palpitations Bilateral lower extremity pain Hearing deficit Frequency of micturition Toe swelling Toe pain, right Vitamin B12 deficiency Scalp cyst Vitamin D deficiency GERD (gastroesophageal reflux disease) Multiple thyroid nodules Lateral meniscal tear Restrictive lung disease Benign hematuria Hemorrhoids Irritable bowel syndrome Cervical disc herniation Impaired glucose tolerance Hypercholesterolemia Erosive esophagitis Surgical History Hx of colonoscopy H/O esophagogastroduodenoscopy S/P excision of lipoma Hx of tubal ligation History of lumpectomy of left breast Family History Father Skin cancer Mother Skin cancer High blood pressure Heart problem Maternal Grandfather Skin cancer Cancer FH: prostate cancer Brother Schizophrenia Other CVA (cerebral vascular accident) Mental health problem Social History Household Members: None Housing: Apartment Alcohol intake: never Patient Tobacco Use Status: Former Tobacco user Tobacco use type: Cigarette Years Smoked: quit 2007 e-Cigarette/Vaping Use: Never Used Second Hand Smoke Exposure: No service: No Current occupational status: employed 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 Bill Morris, Chqiuis Webster, Duke Madera and colleagues, with an educational claudia from [employer]. Physical exam (Primary Care) Vital Signs: Last Vital Signs Pulse 64 06/28/24 17:24 BP 104/70 06/28/24 17:24 Pulse Ox 97 06/28/24 17:24 Oxygen Delivery Method Room Air 06/28/24 17:24 BMI result Body Mass Index 25.8 Tobacco/Smoking Status: Tobacco use Status Tobacco use date assessed 09/02/23 06/28/24 17:24 Patient Tobacco Use Status Former Tobacco user 06/28/24 17:24 Tobacco use type Cigarette 06/28/24 17:24 e-Cigarette/Vaping Use Never Used 06/28/24 17:24 Thrive Assessment: Date of Thrive Assessment Date Thrive assessed 11/25/23 06/28/24 17:24 Const General: alert; No acute distress Eyes Conjunctivae: conjunctivae normal Resp Auscultation: clear to auscultation bilaterally Cardio Rate: regular rate Rhythm: regular rhythm GI Inspection: Yes normal to inspection Extrem General: Yes normal to inspection and No edema Coding Level of Care Code Est Pt Level 4 (25787) Diagnoses Vertigo of central origin H81.4 Erosive esophagitis K22.10 Impaired glucose tolerance R73.02 Generalized anxiety disorder F41.1 Hypercholesterolemia E78.00 Assessment & Plan Assessment & Plan (1) Vertigo of central origin: Code(s): H81.4 - Vertigo of central origin Category: Medical Plan: Patient has been advised to stop cetirizine due to its side effect of drowsiness. Patient has been given allergy medication nasal spray and will add Claritin instead. (2) Erosive esophagitis: Comment: 02/2024 scope= well healed normal ; EGD and colon December 2018 , May 2019 5 years Code(s): K22.10 - Ulcer of esophagus without bleeding Category: Medical Plan: Avoid the foods that causes that usually spicy foods, tomato products, juices, coffee, soda and foods that your sensitive to. After eating do not lie down, allow 3-4 hours before in lie down. And keep the head of bed above 30 degrees to avoid the acid from going up. On pantoprazole 40 mg once a day (3) Impaired glucose tolerance: Code(s): R73.02 - Impaired glucose tolerance (oral) Category: Medical Plan: Decrease the amount of carbohydrate intake, pasta, bread, rice and potatoes are all sugar and that is aside from all the sweet stuff, remember that fruits are good but they are Sweet also. (4) Generalized anxiety disorder: Comment: [facility] counseling Code(s): F41.1 - Generalized anxiety disorder Category: Medical Plan: Continue with counseling and therapy (5) Hypercholesterolemia: Code(s): E78.00 - Pure hypercholesterolemia, unspecified Category: Medical Plan: Avoid fried foods, chicken skin, eggs, butter margarine, pastries and meat. Be it pork or beef they have a lot of cholesterol patient has been placed on fenofibrate 160 mg once a day. Orders: Orders Comprehensive Met. Panel 3 Months E78.00 - Pure hypercholesterolemia, unspecified UA CC w/rflx Micro + Cult 3 Months E78.00 - Pure hypercholesterolemia, unspecified, R30.0 - Dysuria Lipid Panel 3 Months E78.00 - Pure hypercholesterolemia, unspecified Hemoglobin A1c 3 Months E78.00 - Pure hypercholesterolemia, unspecified Medications: New loratadine 10 mg PO DAILY 90 tabs 2RF H81.4 - Vertigo of central origin Refilled meclizine 25 mg PO BID PRN 30 tabs 0RF dizziness R42 - Dizziness and giddiness atorvastatin 20 mg PO DAILY 90 tabs 2RF E78.00 - Pure hypercholesterolemia, unspecified Discontinued cetirizine Discontinued Reason: Doctor's Order 10 mg PO DAILY 90 tabs 2RF E78.00 - Pure hypercholesterolemia, unspecified
[2024-06-28 17:24] VITALS: BP 104/70; PULSE 64; O2SAT 97; BMI 25.8
== END 2024-06-28 17:48 | disposition home or self-care (01) ==
PROVIDERS: PCP Internal Medicine; Visit Provider Internal Medicine
DX: H81.4 Vertigo of central origin (principal); K22.10 Ulcer of esophagus without bleeding; R73.02 Impaired glucose tolerance (oral); F41.1 Generalized anxiety disorder; E78.00 Pure hypercholesterolemia, unspecified

== ENCOUNTER → 2024-06-28 17:15 | Outpatient (BNVA) | payer OTHER, SELFPAY | PROVIDERS: PCP Internal Medicine; Visit Provider Internal Medicine | DX: H81.4 Vertigo of central origin (principal); K22.10 Ulcer of esophagus without bleeding; R73.02 Impaired glucose tolerance (oral); F41.1 Generalized anxiety disorder; E78.00 Pure hypercholesterolemia, unspecified | CPT/HCPCS: 99212 ==

== ENCOUNTER 2024-07-09 09:33 | Outpatient (AMB) | payer OTHER, SELFPAY ==
--- NOTE | 2024-07-09 09:34 | MHC.PC.OV ---
Intake Visit Reasons: EP RT swelling, painful, itching Allergies latex [Latex] Allergy (Mild, Verified 06/28/24 17:22) SWELLING/ITCHING Sulfa (Sulfonamide Antibiotics) Allergy (Mild, Verified 06/28/24 17:22) SWELLING/ITCHING, pruritis sulfamethoxazole [From BACTRIM] Allergy (Unknown, Verified 06/28/24 17:22) ITCHY/HIVES trimethoprim [From BACTRIM] Allergy (Unknown, Verified 06/28/24 17:22) ITCHY/HIVES metoclopramide [From REGLAN] Adverse Reaction (Unknown, Verified 06/28/24 17:22) AGITATION Tobacco use date assessed: 09/02/23 Dental Screening Dental Screen Date: 05/31/24 [facility] Medical History (Updated 06/28/24 @ 17:32 by Gigi Barrow MD) Dizziness Migraine Tubular adenoma of colon Calcium oxalate crystals in urine Varicose veins of legs Heart palpitations Multiple pigmented nevi Mild carpal tunnel syndrome of right wrist Annual physical exam Chronic idiopathic constipation Tachycardia Shoulder pain, bilateral Upper abdominal pain Pre-op examination SOB (shortness of breath) Mass of left upper extremity Left arm swelling Laceration of left hand Lightheadedness Otitis media Otitis externa Bilateral hand numbness Upper respiratory infection Low back pain Breast cancer screening by mammogram Thyroid nodule Oropharyngeal dysphagia UTI (urinary tract infection) Right kidney stone COVID-19 Chest pain Delayed gastric emptying Daytime sleepiness Snoring Migraine Vertigo Cervicalgia Unspecified Eustachian tube disorder, left ear Acute pharyngitis Urgency of micturition Abdominal pain Dysuria Diarrhea Hematuria Acute conjunctivitis of left eye Wound of right leg Abdominal cramping Allergic conjunctivitis Nephrolithiasis Colitis Interstitial cystitis Chronic cough COVID-19 long hauler COVID-19 Elevated lipase Pain in both knees Vaginal itching Suprapubic pain Vaginal spotting Hematuria Frequency of micturition Myalgia Post-vaccination reaction Palpitations Bilateral lower extremity pain Hearing deficit Frequency of micturition Toe swelling Toe pain, right Vitamin B12 deficiency Scalp cyst Vitamin D deficiency GERD (gastroesophageal reflux disease) Multiple thyroid nodules Lateral meniscal tear Restrictive lung disease Benign hematuria Hemorrhoids Irritable bowel syndrome Cervical disc herniation Impaired glucose tolerance Hypercholesterolemia Erosive esophagitis Surgical History Hx of colonoscopy H/O esophagogastroduodenoscopy S/P excision of lipoma Hx of tubal ligation History of lumpectomy of left breast Family History Father Skin cancer Mother Skin cancer High blood pressure Heart problem Maternal Grandfather Skin cancer Cancer FH: prostate cancer Brother Schizophrenia Other CVA (cerebral vascular accident) Mental health problem Social History Household Members: None Housing: Apartment Alcohol intake: never Patient Tobacco Use Status: Former Tobacco user Tobacco use type: Cigarette Years Smoked: quit 2007 e-Cigarette/Vaping Use: Never Used Second Hand Smoke Exposure: No service: No Current occupational status: employed Current occupation: [employer] Current occupational exposures/hazards: No Cognitive needs: No Hearing needs: No Vision needs: No Questionnaire Thrive Questionnaire Date Thrive assessed: 11/25/23 PACO-7 AMB Questionnaire PACO-7 Date PACO - 7 assessed: 11/25/23 Source: Developed by Drs. Bill Morris, Chiquis Webster, uDke Madera and colleagues, with an educational claudia from [employer]. Physical exam (Primary Care) Tobacco/Smoking Status: Tobacco use Status Tobacco use date assessed 09/02/23 06/28/24 17:24 Patient Tobacco Use Status Former Tobacco user 06/28/24 17:24 Tobacco use type Cigarette 06/28/24 17:24 e-Cigarette/Vaping Use Never Used 06/28/24 17:24 Thrive Assessment: Date of Thrive Assessment Date Thrive assessed 11/25/23 06/28/24 17:24 Coding
--- NOTE | 2024-07-09 09:37 | MHC.OFFWIV ---
Intake Vital Signs 07/09/24 09:38 Height 5 ft 5 in Weight 155 lb BMI 25.8 BP 108/60 Blood Pressure Location Rt brachial Position Sitting Pulse 88 Pulse Source Pulse Oximeter Pulse Oximetry (%) 98 Oxygen Delivery Method Room Air Intake Visit Reasons: EP RT swelling, painful, itching Intake Note: Patient here for right eye swelling pain and itching that has been present fro aboyt 3 days. Patient Tobacco Use Status: Former Tobacco user Allergies latex [Latex] Allergy (Mild, Verified 07/09/24 09:38) SWELLING/ITCHING Sulfa (Sulfonamide Antibiotics) Allergy (Mild, Verified 07/09/24 09:38) SWELLING/ITCHING, pruritis sulfamethoxazole [From BACTRIM] Allergy (Unknown, Verified 07/09/24 09:38) ITCHY/HIVES trimethoprim [From BACTRIM] Allergy (Unknown, Verified 07/09/24 09:38) ITCHY/HIVES metoclopramide [From REGLAN] Adverse Reaction (Unknown, Verified 07/09/24 09:38) AGITATION Do you need a note to return to daycare/school/sports/work: No HPI HPI Comments History of Present Illness Details This is a 53-year-old female presenting for evaluation of right eye pain and redness. Patient states she went to see her eye doctor 2 days ago for similar symptoms and was prescribed a cream and told to use warm compresses. Patient states the pain is on her right upper eyelid which worsens with warm compresses. Patient is using her prescription cream topically but has not been taking any medication for her discomfort. Patient denies any overt visual changes or discharge from her right eye. [facility] Medical History (Updated 07/09/24 @ 10:02 by Shila Forbes PA-C) Dizziness Migraine Tubular adenoma of colon Calcium oxalate crystals in urine Varicose veins of legs Heart palpitations Multiple pigmented nevi Mild carpal tunnel syndrome of right wrist Annual physical exam Chronic idiopathic constipation Tachycardia Shoulder pain, bilateral Upper abdominal pain Pre-op examination SOB (shortness of breath) Mass of left upper extremity Left arm swelling Laceration of left hand Lightheadedness Otitis media Otitis externa Bilateral hand numbness Upper respiratory infection Low back pain Breast cancer screening by mammogram Thyroid nodule Oropharyngeal dysphagia UTI (urinary tract infection) Right kidney stone COVID-19 Chest pain Delayed gastric emptying Daytime sleepiness Snoring Migraine Vertigo Cervicalgia Unspecified Eustachian tube disorder, left ear Acute pharyngitis Urgency of micturition Abdominal pain Dysuria Diarrhea Hematuria Acute conjunctivitis of left eye Wound of right leg Abdominal cramping Allergic conjunctivitis Nephrolithiasis Colitis Interstitial cystitis Chronic cough COVID-19 long hauler COVID-19 Elevated lipase Pain in both knees Vaginal itching Suprapubic pain Vaginal spotting Hematuria Frequency of micturition Myalgia Post-vaccination reaction Palpitations Bilateral lower extremity pain Hearing deficit Frequency of micturition Toe swelling Toe pain, right Vitamin B12 deficiency Scalp cyst Vitamin D deficiency GERD (gastroesophageal reflux disease) Multiple thyroid nodules Lateral meniscal tear Restrictive lung disease Benign hematuria Hemorrhoids Irritable bowel syndrome Cervical disc herniation Impaired glucose tolerance Hypercholesterolemia Erosive esophagitis Surgical History Hx of colonoscopy H/O esophagogastroduodenoscopy S/P excision of lipoma Hx of tubal ligation History of lumpectomy of left breast Family History Father Skin cancer Mother Skin cancer High blood pressure Heart problem Maternal Grandfather Skin cancer Cancer FH: prostate cancer Brother Schizophrenia Other CVA (cerebral vascular accident) Mental health problem Social History Household Members: None Housing: Apartment Alcohol intake: never Patient Tobacco Use Status: Former Tobacco user Tobacco use type: Cigarette Years Smoked: quit 2007 e-Cigarette/Vaping Use: Never Used Second Hand Smoke Exposure: No service: No Current occupational status: employed 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 Current occupational exposures/hazards: No Cognitive needs: No Hearing needs: No Vision needs: No Review of Systems Const All systems reviewed & are unremarkable except as noted in HPI and below Eyes Reports no additional complaints, Denies blurry vision, Denies exophthalmos, Denies change in vision, Denies eye discharge, Reports dry eyes, Reports eye pain (right upper eyelid), Denies seeing flashes and Denies photophobia ENT Reports no additional complaints Card Reports no additional complaints Resp Reports no additional complaints GI Reports no additional complaints Reports no additional complaints Musc Reports no additional complaints Skin/Breast Reports system reviewed and no additional complaints, except as documented Neuro Reports no additional complaints Psych Reports no additional complaints Endo Reports no additional complaints Oscar/Lymph Reports no additional complaints Aller/Immun Reports no additional complaints Physical Exam Const General: cooperative, healthy appearing, comfortable, no acute distress, well developed, alert, awake and Physically active Nutritional Appearance: average body habitus Orientation/consciousness: patient oriented x3 Limitations: no limitations HEENT Head: Yes normal to inspection and Yes normocephalic Ears: hearing grossly normal bilaterally Face and sinus: Yes normal facial exam Eyes Visual Carreon: normal visual carreon by confrontation Periorbital: periorbital findings normal Eyelids: Yes eyelid abnormality (right eyelid with edema and erythema medially, tender to touch) and No lid lag Conjunctivae: conjunctivae normal Pupils: Equal, round and reactive pupils present EOM: EOMs intact bilaterally Direct Ophthalmoscopy: no photophobia and No photophobia Skin Other: erythema and edema medial upper right eyelid Neuro General: patient oriented x3 Cranial nerves: Yes Equal, round and reactive pupils present Psych Appearance: grossly normal Mental Status: mental status grossly normal Insight: Good insight present (Psych) Judgement: Good judgement present (Psych) Assessment & Plan Assessment & Plan (1) Hordeolum external: Comment: There is no clinical evidence of a periorbital cellulitis, conjunctivitis or retained foreign body in the right eye. Code(s): H00.019 - Hordeolum externum unspecified eye, unspecified eyelid Qualifiers: Laterality: right Eyelid: upper Qualified Code(s): H00.011 - Hordeolum externum right upper eyelid Plan: Continue with prescription cream provided by Ophthalmology, warm compresses 5 times daily and Tylenol as needed for pain. Patient will follow up with her hydraulic repairer as needed. Coding Level of Care Code Est Pt Level 3 (77037) Diagnoses Hordeolum externum of right upper eyelid H00.011 Laterality: right Eyelid: upper Time Spent (min) 20
[2024-07-09 09:38] VITALS: BP 108/60; PULSE 88; O2SAT 98; BMI 25.8
== END 2024-07-09 10:11 | disposition home or self-care (01) ==
PROVIDERS: PCP Internal Medicine; Visit Provider Physician Assistant
DX: H00.011 Hordeolum externum right upper eyelid (principal)

== ENCOUNTER → 2024-07-09 09:33 | Outpatient (BNVA) | payer OTHER, SELFPAY | PROVIDERS: PCP Internal Medicine; Visit Provider Physician Assistant | DX: H00.011 Hordeolum externum right upper eyelid (principal) | CPT/HCPCS: 99212 ==

== ENCOUNTER 2024-07-29 08:28 | Outpatient (AMB) | payer OTHER, SELFPAY ==
[2024-07-29 08:36] VITALS: BP 104/80; PULSE 81; O2SAT 96; BMI 25.5
--- NOTE | 2024-07-29 08:36 | A.OFFPC_ITS ---
Vital Signs 07/29/24 08:36 Height 5 ft 5 in Weight 153 lb BMI 25.5 BP 104/80 Blood Pressure Location Lt brachial Position Sitting Pulse 81 Pulse Source Pulse Oximeter Pulse Oximetry (%) 96 Oxygen Delivery Method Room Air Intake Visit Reasons: follow up [phone] Taker Down Required: No Accompanied by: Self / Same As Patient Allergies latex [Latex] Allergy (Mild, Verified 07/29/24 08:37) SWELLING/ITCHING Sulfa (Sulfonamide Antibiotics) Allergy (Mild, Verified 07/29/24 08:37) SWELLING/ITCHING, pruritis sulfamethoxazole [From BACTRIM] Allergy (Unknown, Verified 07/29/24 08:37) ITCHY/HIVES trimethoprim [From BACTRIM] Allergy (Unknown, Verified 07/29/24 08:37) ITCHY/HIVES metoclopramide [From REGLAN] Adverse Reaction (Unknown, Verified 07/29/24 08:37) AGITATION Tobacco use date assessed: 07/29/24 Dental Screening Dental Screen Date: 07/29/24 Did you have a dental visit in the last 12 months?: Yes Did you have a dental problem in the last 6 months where you did not have access to dental care?: No Was dental information given to patient?: Patient has dentist HPI follow up [phone] HPI Details The patient is a 53-year-old female presenting with sore throat, postnasal drip, and chest pain. The onset of the sore throat was reported prior to Adolph, exacerbating at night, with initial concern for COVID-19, though this was ruled out through testing at the time alongside a negative influenza test. An antibiotic treatment was initiated, specifically 875 mg doses of an unspecified antibiotic, to address suspected bacterial pharyngitis, although the patient is not adhering to the prescribed twice daily dosing due to gastrointestinal discomfort. The patient reports a thick postnasal drip contributing to ongoing throat symptoms, despite the use of loratadine and an intranasal spray. She admits to inadequate hydration which may contribute to symptoms, consuming only two to three bottles of water daily. The presence of a dog, as well as closed windows in winter, were noted as potential allergen contributors. The patient describes chest pain, questioning the previous workup, which reportedly included an echocardiogram, stress test, and Holter monitor. Musculoskeletal origins of pain were considered due to sensitivity to touch and association with prior anxiety exacerbation. She also reports unease due to thick mucus obstruction when swallowing, likely exacerbated by GERD. She experiences episodic chest pain potentially linked to gastroesophageal conditions, noticing discomfort exacerbated by gas retention. [facility] Medical History (Updated 07/29/24 @ 09:24 by Gigi Barrow MD) Dizziness Migraine Tubular adenoma of colon Calcium oxalate crystals in urine Varicose veins of legs Heart palpitations Multiple pigmented nevi Mild carpal tunnel syndrome of right wrist Annual physical exam Chronic idiopathic constipation Tachycardia Shoulder pain, bilateral Upper abdominal pain Pre-op examination SOB (shortness of breath) Mass of left upper extremity Left arm swelling Laceration of left hand Lightheadedness Otitis media Otitis externa Bilateral hand numbness Upper respiratory infection Low back pain Breast cancer screening by mammogram Thyroid nodule Oropharyngeal dysphagia UTI (urinary tract infection) Right kidney stone COVID-19 Chest pain Delayed gastric emptying Daytime sleepiness Snoring Migraine Vertigo Cervicalgia Unspecified Eustachian tube disorder, left ear Acute pharyngitis Urgency of micturition Abdominal pain Dysuria Diarrhea Hematuria Acute conjunctivitis of left eye Wound of right leg Abdominal cramping Allergic conjunctivitis Nephrolithiasis Colitis Interstitial cystitis Chronic cough COVID-19 long hauler COVID-19 Elevated lipase Pain in both knees Vaginal itching Suprapubic pain Vaginal spotting Hematuria Frequency of micturition Myalgia Post-vaccination reaction Palpitations Bilateral lower extremity pain Hearing deficit Frequency of micturition Toe swelling Toe pain, right Vitamin B12 deficiency Scalp cyst Vitamin D deficiency GERD (gastroesophageal reflux disease) Multiple thyroid nodules Lateral meniscal tear Restrictive lung disease Benign hematuria Hemorrhoids Irritable bowel syndrome Cervical disc herniation Impaired glucose tolerance Hypercholesterolemia Erosive esophagitis Surgical History Hx of colonoscopy H/O esophagogastroduodenoscopy S/P excision of lipoma Hx of tubal ligation History of lumpectomy of left breast Family History Father Skin cancer Mother Skin cancer High blood pressure Heart problem Maternal Grandfather Skin cancer Cancer FH: prostate cancer Brother Schizophrenia Other CVA (cerebral vascular accident) Mental health problem Social History Household Members: None Housing: Apartment Alcohol intake: never Patient Tobacco Use Status: Former Tobacco user Tobacco use type: Cigarette Years Smoked: quit 2007 e-Cigarette/Vaping Use: Never Used Second Hand Smoke Exposure: No service: No Current occupational status: employed 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 1. Little interest or pleasure in doing things: not at all 2. Feeling down, depressed, or hopeless: not at all 3. Trouble falling or staying asleep, or sleeping too much: not at all 4. Feeling tired or having little energy: not at all 5. Poor appetite or overeating: not at all 6. Feeling bad about yourself - or that you are a failure or have let yourself or your family down: not at all 7. Trouble concentrating on things, such as reading the newspaper or watching television: not at all 8. Moving or speaking so slowly that other people could have noticed. Or the opposite - being so fidgety or restless that you have been moving around a lot more than usual: not at all 9. Thoughts that you would be better off or of hurting yourself in some way: not at all Total score: 0 Depression Screening Interpretation: Positive Depression Screening Follow-up: Existing condition and In treatment Depression Screening Done: Yes 11968 - PHQ-9 Billing: Yes Source: Developed by Drs. Bill Morris, Chiquis Webster, Duke Madera and colleagues, with an educational claudia from [employer]. Thrive Questionnaire Date Thrive assessed: 07/29/24 I am a: Patient What is your living situation today?: I have a steady place to live Within the past 12 months, did the food you bought not last and you didn't have the money to get more?: Never true Within the past 12 months, did you worry whether your food would run out before you got money to buy more?: Never true Do you have trouble paying for medicines?: No Do you have trouble getting transportation to medical appointments?: No Do you have trouble paying your heating and electricity bill?: No Do you have trouble taking care of your child, family member or friend?: No Do you have trouble with day-to-day activities such as bathing, preparing meals, shopping, managing finances, etc.?: No Are you currently unemployed and looking for a job?: No Are you interested in more education?: No Please select the resources that you would like help with: None Currently or been in a relationship where the following occur: No concerns reported THRIVE Score: 0 AUDIT C Alcohol Use Questionnaire (AUDIT-C) 1. How often do you have a drink containing alcohol?: Monthly or less 2. How many drinks containing alcohol do you have on a typical day when you are drinking?: 1 or 2 3. How often do you have six or more drinks on one occasion?: Never Total Score: 1 Score Reviewed/Action Taken: No PACO-7 AMB Questionnaire PACO-7 Date PACO - 7 assessed: 07/29/24 Feeling nervous, anxious, or on edge: 0 = Not at all Not being able to stop or control worryin = Not at all Worrying too much about different things: 0 = Not at all Trouble relaxin = Not at all Being so restless that it is hard to sit still: 0 = Not at all Becoming easily annoyed or irritable: 0 = Not at all Feeling afraid as if something awful might happen: 0 = Not at all Total PACO-7 score (0-4 normal; 5-9 mild; 10-14 moderate; 15-21 severe): 0 Source: Developed by Drs. Bill Morris, Chiquis Webster, Duke Madera and colleagues, with an educational claudia from [employer]. Physical exam (Primary Care) Vital Signs: Last Vital Signs Pulse 81 07/29/24 08:36 BP 104/80 07/29/24 08:36 Pulse Ox 96 07/29/24 08:36 Oxygen Delivery Method Room Air 07/29/24 08:36 BMI result Body Mass Index 25.5 Tobacco/Smoking Status: Tobacco use Status Tobacco use date assessed 07/29/24 07/29/24 08:43 Patient Tobacco Use Status Former Tobacco user 07/29/24 08:43 Tobacco use type Cigarette 07/29/24 08:43 e-Cigarette/Vaping Use Never Used 07/29/24 08:43 PHQ-9: PHQ-9 Score PHQ-9: Total score 0 07/29/24 09:14 Depression Screening Interpretation: Positive Depression Screening Follow-up: Existing condition and In treatment Thrive Assessment: Date of Thrive Assessment Date Thrive assessed 07/29/24 07/29/24 08:43 Currently or been in a relationship where the following occur: No concerns reported Const General: alert; No acute distress Eyes Conjunctivae: conjunctivae normal Resp Auscultation: clear to auscultation bilaterally Cardio Rate: regular rate Rhythm: regular rhythm GI Inspection: Yes normal to inspection Extrem General: Yes normal to inspection and No edema Coding Level of Care Code Est Pt Level 4 (54908) Diagnoses Dysphagia R13.10 Post-nasal drip R09.82 Sprain of left medial ankle joint S93.422A Additional Codes PHQ-9 - 97116 - PHQ-9 Billing: Yes ([id number]) Assessment & Plan Assessment & Plan (1) Dysphagia: Code(s): R13.10 - Dysphagia, unspecified Category: Medical (2) Post-nasal drip: Code(s): R09.82 - Postnasal drip Category: Medical (3) Sprain of left medial ankle joint: Code(s): S93.422A - Sprain of deltoid ligament of left ankle, initial encounter Category: Medical Plan: decline test for now Plan - Pharyngitis: Continue current antibiotics but adjust dosing to minimize gastrointestinal upset; encourage proper adherence if improvement is not noted or symptoms escalate. - Postnasal Drip: Advise on increased fluid intake; recommend nasal saline rinses to thin mucus and alleviate postnasal drip symptoms. - Allergy Management: Continue loratadine; review environmental controls for allergens. - Chest Pain: Reassess prior cardiac evaluations to confirm exclusion of cardiac etiology; consider musculoskeletal pain management. - Gastroesophageal Reflux Disease: Consider dietary modifications and proton pump inhibitors if symptoms persist. - Anxiety: Discuss potential link with chest symptoms and explore management strategies. Orders: Orders [place] barium swallow Today R13.10 - Dysphagia, unspecified Referrals Ear/Nose/Throat Referral R09.82 - Postnasal drip
== END 2024-07-29 09:33 | disposition home or self-care (01) ==
PROVIDERS: PCP Internal Medicine; Visit Provider Internal Medicine
DX: R13.10 Dysphagia, unspecified (principal); R09.82 Postnasal drip; S93.422A Sprain of deltoid ligament of left ankle, initial encounter

== ENCOUNTER 2024-08-09 13:45 | Outpatient (AMB) | payer OTHER, SELFPAY ==
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
[2024-08-09 13:55] VITALS: BP 110/70; PULSE 73; O2SAT 96; BMI 25.9
== END 2024-08-09 14:37 | disposition home or self-care (01) ==
PROVIDERS: PCP Internal Medicine; Visit Provider Physician Assistant Medical
DX: M54.2 Cervicalgia (principal); R42 Dizziness and giddiness; G43.719 Chronic migraine without aura, intractable, without status migrainosus; R40.0 Somnolence; R06.83 Snoring; M47.812 Spondylosis without myelopathy or radiculopathy, cervical region; M79.2 Neuralgia and neuritis, unspecified
CPT/HCPCS: 99214

== ENCOUNTER → 2024-08-09 13:45 | Outpatient (BNVA) | payer OTHER, SELFPAY | PROVIDERS: PCP Internal Medicine; Visit Provider Physician Assistant Medical | DX: G43.719 Chronic migraine without aura, intractable, without status migrainosus (principal); R42 Dizziness and giddiness; R40.0 Somnolence; R06.83 Snoring; M54.2 Cervicalgia; M47.812 Spondylosis without myelopathy or radiculopathy, cervical region; M79.2 Neuralgia and neuritis, unspecified | CPT/HCPCS: 99212 ==

== ENCOUNTER 2024-08-25 07:59 | Outpatient (REF) | payer OTHER, SELFPAY ==
--- OUTSIDE RECORDS SUMMARY | 2024-08-25 08:03 | XMS_ITS | Clinical Summary ---
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 Name Role Phone Gigi Barrow MD Primary Care Provider [phone] Allergies Active Allergy Reactions Criticality Noted Date Comments Latex 04/26/2011 Metoclopramide Hcl 07/15/2014 Other Reaction(s): Rash/Dermatitis Sulfa (Sulfonamide Antibiotics) Itching,Swelling Medium 04/26/2011 Sulfamethoxazole-Trimethop rim Itching,Swelling Medium 04/26/2011 Medications Medication Sig Dispensed Refills Start Date End Date Status hydrOXYzine HCL (ATARAX) 10 mg tablet Act van linaCLOtide (Linzess) 72 mcg capsule TAKE 1 CAPSULE BY MOUTH EVERY DAY IN THE MORNING Active finasteride (PROSCAR) 5 mg tablet Take 5 mg by mouth daily. Active lubiprostone (Amitiza) 8 mcg capsule Active LORazepam (ATIVAN) 0.5 mg tablet Active fluticasone propionate (FLONASE) 50 mcg/actuation nasal spray Active diclofenac (VOLTAREN) 50 mg EC tablet Active CHOLECALCIFEROL, VITAMIN D3, ORAL Take by mouth. Acti ve pantoprazole (PROTONIX) 40 mg EC tablet Take 40 mg by mouth daily. Active Active Problems Problem Noted Date Diagnosed Date Pelvic pain 10/19/2020 Overview (08/13/2024): Last Assessment & Plan: No evidence of acute abdomen. I encouraged her to keep her follow up appts with urology and GI. We requested her US results from [facility], but they will not fax for 48 hours from imaging unless patient goes there to request it. She plans to go today. I explained I will call her if I get the results today, otherwise Dr. Henry will call her next week as he is the ordering provider. She agreed. Hypercholesteremia 04/26/2011 Interstitial cystitis 04/26/2011 Irritable bowel syndrome 04/26/2011 Surgical History Surgery Date Site/Laterality Comments TUBAL LIGATION PROCEDURE: HISTORICAL TUBAL LIGATION BREAST LUMPECTOMY PROCEDURE: HISTORICAL BREAST LUMPECTOMY; COMMENT: breast biopsy BACK SURGERY PROCEDURE: HISTORICAL BACK SURGERY; COMMENT: Removal mass on back Medical History Medical History Date Comments Hypercholesteremia DX:Hyperchole steremia Interstitial cystitis DX:Interst itial cystitis Irritable bowel syndrome DX:Irri table bowel syndrome Herniated disc, cervical DX:Celine iated disc, cervical ASCUS with positive high risk HPV 06/2015 DX:ASCUS with positive high risk HPV; COMMENT: Colpo Aug 2015 Family History Medical History Relation Name Comments Colon cancer Maternal Grandfather unsure but thinks colon Hypertension Mother Breast cancer Neg Hx Ovarian cancer Neg Hx Pancreatic cancer Neg Hx Prostate cancer Neg Hx Uterine cancer Neg Hx Relation Name Status Comments Brother x4 Alive Father Alive Half-Sister dad side Alive Maternal Grandfather Mother Alive Sister Alive Social History Tobacco Use Types Packs/Day Years Used Date Smoking Tobacco: Former Cigarettes Q uit: 09/26/2007 Smokeless Tobacco: Never Alcohol Use Standard Drinks/Week Comments No 0 (1 standard drink = 0.6 oz pur e alcohol) Sex and Gender Information Value Date Recorded Sex Assigned at Not on file Gender Identity Not on file Sexual Orientation Not on file Job Start Date Occupation Industry Not on file Not on file Not on file Obstetrics History Last Filed Vital Signs Vital Sign Reading Time Taken Comments Blood Pressure 122/69 10/21/2023 1:26 PM EDT Pulse 78 10/21/2023 1:26 PM EDT Temperature - - Respiratory Rate - - Oxygen Saturation - - Inhaled Oxygen Concentration - - Weight 70.3 kg (155 lb) 10/21/2023 1:26 PM EDT Height 165.1 cm (5' 5 ) 10/21/2023 1:26 PM EDT Body Mass Index 25.79 10/21/2023 1:26 PM EDT Plan of Treatment Upcoming Encounters Date Type Department Care Team (Late st Contact Info) Description 11/10/2024 3:30 PM EDT Office Visit Obstetrics & Gynecology - [address] [address] Graciela Rodriguez, CNM [address] [place] [address] Health Maintenance Due Date Last Done Comments Breast Cancer Screening 1970 DTaP,Tdap,and Td Vaccines (1 - Tdap) 1988 Hepatitis B Vaccines (1 of 3 - 19+ 3-dose series) 1988 Zoster Vaccines (1 of 2) 12/09/2019 Cholesterol Screening (Lipid Panel) 07/06/2022 02/26/2012 Colorectal Cancer Screening: Colonoscopy 07/06/2022 04/26/2011 Depression Screening 07/06/2022 HIV Screening 07/06/2022 Social Influencers of Health Screening 07/06/2022 COVID-19 Vaccine (1 - 2023-2 5 season) 2024 Influenza Vaccine (#1) 2024 Cervical Cancer Screening: HPV 10/20/2028 10/21/2023 Hepatitis C Screening Completed 10/21/2023 HIB Vaccines Aged Out No longer eligi ble based on patient's age to complete this topic HPV Vaccines Aged Out No longer eligi ble based on patient's age to complete this topic Hepatitis A Vaccines Aged Out No long er eligible based on patient's age to complete this topic IPV Vaccines Aged Out No longer eligi ble based on patient's age to complete this topic MMR Vaccines Aged Out No longer eligi ble based on patient's age to complete this topic Meningococcal ACWY Vaccine Aged Out N o longer eligible based on patient's age to complete this topic Pneumococcal Vaccine: Pediat rics (0 to 5 Years) and At-Risk Patients (6 to 64 Years) Aged Out No longer eligi ble based on patient's age to complete this topic RSV Immunization Patients Un randy 20 months Aged Out No longer eligible b ased on patient's age to complete this topic Varicella Vaccines Aged Out No longer eligible based on patient's age to complete this topic Procedures Procedure Name Priority Date/Time Associated Diagnosis Comments HM HPV Routine 10/21/2023 HM HEPATITIS C SCREENING Routine 10/21/2023 LIPID PANEL Routine 02/26/2012 COLONOSCOPY Routine 04/26/2011 from Last 3 Months or Most Recently Relevant to Health Maintenance Results * Cervical Cancer Screening: HPV (10/21/2023) [facility] Cervical Cancer Screening: HPV Negative,A bstracted Historical Provider MD SOY BEEBE E * Hepatitis C Screening (10/21/2023) [facility] Hepatitis C Screening Abstracted Historical Provider MD SOY BEEBE E * Lipid panel (02/26/2012) [facility] LDL/HDL Ratio 0 Comment:no interpetation,Abs tracted Triglycerides 0 mg/dL Comment:no interpetation,Abs tracted Cholesterol 0 mg/dL Comment:no interpetation,Abs tracted HDL 0 mg/dL Comment:no interpetation,Abs tracted LDL Cholesterol 0 mg/dL Comment:no interpetation,Abs tracted Blood Venous blood specimen / Unknown Historical Provider LAB BLOOD ORDERAB LES * Colonoscopy (04/26/2011) [facility] Colonoscopy no interpreta tion,Abstr acted Anatomical Region Laterality Modality Other Historical Provider MD SOY Brooke from Last 3 Months or Most Recently Relevant to Health Maintenance Care Teams Cnc Milling Machine 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
== END 2024-08-25 08:00 | disposition home or self-care (01) ==
LOC: HO.MAMMO 07:59
PROVIDERS: PCP Internal Medicine; Visit Provider Internal Medicine
DX: Z12.31 Encounter for screening mammogram for malignant neoplasm of breast (principal)
CPT/HCPCS: 77063; 77067

== ENCOUNTER → 2024-08-25 08:30 | Outpatient (BNV) | payer OTHER, SELFPAY | PROVIDERS: PCP Internal Medicine; Visit Provider Internal Medicine | DX: Z12.31 Encounter for screening mammogram for malignant neoplasm of breast (principal) | CPT/HCPCS: 77063; 77067 ==

== ENCOUNTER 2024-09-01 09:24 | Emergency (ER) | payer OTHER, SELFPAY ==
--- NOTE | 2024-09-01 | ECG_ITS ---
Test Reason : tachy Blood Pressure : */* mmHG Vent. Rate : 110 BPM Atrial Rate : 110 BPM P-R Int : 160 ms QRS Dur : 90 ms QT Int : 348 ms P-R-T Axes : 52 63 50 degrees QTcB Int : 470 ms Sinus tachycardia Possible Left atrial enlargement Borderline ECG When compared with ECG of 19-Jan-2023 10:57, No significant change was found Referred By: Generic ED Physician Electronically Signed By: Jamar Sullivan
[2024-09-01 09:32] VITALS: BP 102/54; PULSE 116; RESP 20; TEMP 38.2; O2SAT 98; BMI 25.3
[2024-09-01 09:47] LABS: MANUAL DIFF FLAG NO
[2024-09-01 09:48] LABS: Basophils Percent Auto 0.4 % (0-2); Eosinophils Absolute Auto 0.1 X10*3/uL (0.0-0.4); Eosinophils Percent Auto 1.2 % (0-4); Hematocrit 42.6 % (37.0-47.0); Hemoglobin 14.4 g/dl (12.0-16.0); Imm Gran Abs Auto 0.01 X10*3/uL (0.00-0.03); Imm Gran Pct Auto 0.1 % (0.0-0.4); Lymphocytes Absolute Auto 0.8 X10*3/uL (1.2-4.9); Lymphocytes Percent Auto 10.6 % (20-40); Mean Corpuscular HGB Conc 33.8 g/dl (31.0-35.0); Mean Corpuscular Hemoglobin 29.2 pg (27.0-33.0); Mean Corpuscular Volume 86.4 fL (80.0-98.0); Mean Platelet Volume 9.9 fL (9.4-12.3); Monocytes Absolute Auto 0.6 X10*3/uL (0.1-1.2); Neutrophils Absolute Auto 5.9 x10*3/uL (2.0-8.3); Neutrophils Percent Auto 79.7 % (45-73); Platelet Count 241 X10*3/uL (160-400); Red Blood Count 4.93 X10*6/uL (4.20-5.50); Red Cell Distribution Width 12.3 % (11.0-16.0); White Blood Count 7.4 X10*3/uL (4.8-10.8)
[2024-09-01 10:02] VITALS: BP 111/68; PULSE 141; O2SAT 98
[2024-09-01 10:05] LABS: Alanine Aminotransferase 26 U/L (0-31); Albumin Level 4.2 g/dL (3.5-5.0); Alkaline Phosphatase 94 U/L (39-117); Anion Gap 12 (12-20); Aspartate Amino Transferase 23 U/L (5-31); Bilirubin Total 0.3 mg/dL (0.0-1.0); Blood Urea Nitrogen 16 mg/dL (9-16); Calcium 9.1 mg/dL (8.4-10.2); Carbon Dioxide 22 mmol/L (22-29); Chloride 107 mmol/L (96-108); Creatinine Clr Calc Pharmacy 83.6; Estimated Glomerular Filt Rate > 60; Glucose Random 117 mg/dL (60-115); Magnesium 1.9 mg/dL (1.6-2.6); Sodium 137 mmol/L (135-145); Total Protein 7.7 g/dL (6.5-8.0)
[2024-09-01 10:13] LABS: Troponin-I High Sensitivity < 2.7 ng/L (<3.5-17.0)
[2024-09-01 10:35] LABS: Influenza A PCR POSITIVE (Negative); Influenza B PCR NEGATIVE (Negative); Resp Syncy Virus RNA Qual PCR NEGATIVE (Negative); SARS COV2 PCR INHOUSE NEGATIVE (Negative)
--- OUTSIDE RECORDS SUMMARY | 2024-09-01 10:39 | XMS_ITS | Clinical Summary ---
Author Organization [facility] Address [address] [place] [address] Phone Care Team Providers Care Pharmacy Technologist Name Role Phone Gigi Barrow MD Primary Care Provider [phone] Allergies Active Allergy Reactions Criticality Noted Date [...] GI. We requested her US results from [facility], but they will not fax for 48 [...] EDT Office Visit Obstetrics & Gynecology - [address] [address] Graciela Rodriguez, CNM [address] [place] [address] Health Maintenance Due Date Last Done Comments [...] Results * Cervical Cancer Screening: HPV (10/21/2023) [facility] Cervical Cancer Screening: HPV Negative,A bstracted Historical Provider MD SOY BEEBE E * Hepatitis C Screening (10/21/2023) [facility] Hepatitis C Screening Abstracted Historical Provider MD SOY BEEBE E * Lipid panel (02/26/2012) [facility] LDL/HDL Ratio 0 Comment:no interpetation,Abs tracted Triglycerides 0 mg/dL Comment:no interpetation,Abs tracted Cholesterol 0 mg/dL Comment:no interpetation,Abs tracted HDL 0 mg/dL Comment:no interpetation,Abs tracted LDL Cholesterol 0 mg/dL Comment:no interpetation,Abs tracted Blood Venous blood specimen / Unknown Historical Provider LAB BLOOD ORDERAB LES * Colonoscopy (04/26/2011) [facility] Colonoscopy no interpreta tion,Abstr acted Anatomical Region Laterality Modality Other Historical Provider MD SOY Brooke from Last 3 Months or Most Recently Relevant to Health Maintenance Care Teams Pharmacy Technologist Relationship Specialty Start Date End Date Gigi Barrow MD [address] [place] [address] [address] [facility] [place], [place] [id number] PCP - General Internal Medicine 02/20/16
[2024-09-01] MEDS: Acetaminophen 325 MG TABLET 975 MG PO (10:42)
[2024-09-01 10:44] VITALS: BP 124/64; PULSE 96; RESP 20; TEMP 38.2; O2SAT 96
--- NOTE | 2024-09-01 10:46 | PC.NURSE ---
Pt oral temp 100.7, medicated per SEP. Call cronin within reach, all needs met at this time.
[2024-09-01 10:52] LABS: IDNOW Serial# 6674DD1D; Strep A Nucleic Acid Negative (Negative)
[2024-09-01 11:53] VITALS: BP 103/46; PULSE 65; RESP 18; TEMP 37.6; O2SAT 98
[2024-09-01] MEDS: Ketorolac Tromethamine 15 MG/ML VIAL IVPUSH (11:57)
[2024-09-01] MEDS: 0.9 % Sodium Chloride 1,000 ML 999 ML IV (11:57)
[2024-09-01 12:04] VITALS: TEMP 37.6
--- NOTE | 2024-09-01 12:51 | ED.GENADULT ---
HPI - General Adult General Chief complaint: General Medical Stated complaint: PALPITATIONS Time Seen by Provider: 09/01/24 11:42 Source: patient Limitations: no limitations History of Present Illness ED Provider: Dyan Ferris PA-C HPI narrative: 53-year-old female with a history of anxiety, migraine, vertigo, arthritis, hyperlipidemia presents with fever. Patient states she has been noting palpitations at home the began yesterday morning. Associated dry cough, sore throat, generalized myalgias. Patient denies sick contacts with same symptoms. Denies chest pain. Related Data Home Medications ?Medication ?Instructions ?Recorded ?Confirmed multivitamin 1 tab PO DAILY 11/16/20 06/28/24 Previous Rx's ?Medication ?Instructions ?Recorded blood pressure monitor (Blood #1 ea 04/18/22 Pressure Kit) cholecalciferol (vitamin D3) 50 50 mcg PO DAILY #90 tabs 01/09/23 mcg (2,000 unit) tablet ondansetron HCl 4 mg tablet 4 mg PO Q8H PRN nausea and 10/23/23 vomiting #20 tabs fenofibrate 160 mg tablet 160 mg PO DAILY #90 tabs 12/17/23 magnesium oxide 400 mg (241.3 mg 400 mg PO DAILY #90 tabs 12/18/23 magnesium) tablet Lactobacillus acidophilus 100 mg 100 mg PO DAILY #150 caps 02/04/24 (1 billion cell) capsule budesonide 32 mcg/actuation nasal 2 spray intranasal BEDTIME #8.43 mL 03/26/24 spray pantoprazole 40 mg tablet,delayed 40 mg PO DAILY #90 tabs 04/22/24 release atorvastatin 20 mg tablet 20 mg PO DAILY #90 tabs 06/28/24 loratadine 10 mg tablet 10 mg PO DAILY #90 tabs 06/28/24 meclizine 25 mg tablet 25 mg PO BID PRN dizziness #30 tabs 06/28/24 lorazepam 0.5 mg tablet (Ativan) 0.5 mg PO ONCE PRN MRI procedure 08/09/24 #1 tab baclofen 5 mg tablet 5 mg PO BEDTIME #90 tabs 09/01/24 Allergies Allergy/AdvReac Type Severity Reaction Status Date / Time latex [Latex] Allergy Mild SWELLING/IT Verified 09/01/24 09:35 ROSSANA Sulfa (Sulfonamide Allergy Mild SWELLING/ITCHING, Verified 09/01/24 09:35 Antibiotics) pruritis sulfamethoxazole Allergy Unknown ITCHY/HIVES Verified 09/01/24 09:35 [From BACTRIM] trimethoprim [From BACTRIM] Allergy Unknown ITCHY/HIVES Verified 09/01/24 09:35 metoclopramide [From REGLAN] AdvReac Unknown AGITATION Verified 09/01/24 09:35 Review of Systems Review of Systems: Yes all other systems are reviewed and are negative Constitutional: Constitutional: Reports fatigue, Reports fever(s) and Reports malaise Cardiovascular: Cardiovascular: Denies chest pain and Denies dyspnea Respiratory: Respiratory: Reports cough, Denies dyspnea and Denies wheezing Gastrointestinal: Gastrointestinal: Denies abdominal pain, Denies nausea and Denies vomiting Musculoskeletal: Musculoskeletal: Reports myalgias Endocrine: Endocrine: Reports fatigue Allergic/Immunologic: Allergic/Immunologic: Denies wheezing PMFSH Past Medical History Attestation statement: The following information was validated with the patient. Medical History Dizziness Migraine Tubular adenoma of colon Calcium oxalate crystals in urine Varicose veins of legs Heart palpitations Multiple pigmented nevi Mild carpal tunnel syndrome of right wrist Annual physical exam Chronic idiopathic constipation Tachycardia Shoulder pain, bilateral Upper abdominal pain Pre-op examination SOB (shortness of breath) Mass of left upper extremity Left arm swelling Laceration of left hand Lightheadedness Otitis media Otitis externa Bilateral hand numbness Upper respiratory infection Low back pain Breast cancer screening by mammogram Thyroid nodule Oropharyngeal dysphagia UTI (urinary tract infection) Right kidney stone COVID-19 Chest pain Delayed gastric emptying Daytime sleepiness Snoring Migraine Vertigo Cervicalgia Unspecified Eustachian tube disorder, left ear Acute pharyngitis Urgency of micturition Abdominal pain Dysuria Diarrhea Hematuria Acute conjunctivitis of left eye Wound of right leg Abdominal cramping Allergic conjunctivitis Nephrolithiasis Colitis Interstitial cystitis Chronic cough COVID-19 long hauler COVID-19 Elevated lipase Pain in both knees Vaginal itching Suprapubic pain Vaginal spotting Hematuria Frequency of micturition Myalgia Post-vaccination reaction Palpitations Bilateral lower extremity pain Hearing deficit Frequency of micturition Toe swelling Toe pain, right Vitamin B12 deficiency Scalp cyst Vitamin D deficiency GERD (gastroesophageal reflux disease) Multiple thyroid nodules Lateral meniscal tear Restrictive lung disease Benign hematuria Hemorrhoids Irritable bowel syndrome Cervical disc herniation Impaired glucose tolerance Hypercholesterolemia Erosive esophagitis Surgical History Hx of colonoscopy H/O esophagogastroduodenoscopy S/P excision of lipoma Hx of tubal ligation History of lumpectomy of left breast Family History Family History Father Skin cancer Mother Skin cancer High blood pressure Heart problem Maternal Grandfather Skin cancer Cancer FH: prostate cancer Brother Schizophrenia Other CVA (cerebral vascular accident) Mental health problem Social History Social History Household Members: None Housing: Apartment Alcohol intake: never Patient Tobacco Use Status: Former Tobacco user Tobacco use type: Cigarette Years Smoked: quit 2008 Smoked in Last 30 Days: No e-Cigarette/Vaping Use: Never Used Second Hand Smoke Exposure: No Use of substances other than those prescribed or required for medical reasons: No Advance Directives: No Advance Directives Information Provided: Yes Do you have a plan to hurt others: No Plan Patient : No service: No Current occupational status: employed 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 Current occupational exposures/hazards: No Cognitive needs: No Hearing needs: No Vision needs: No Physical Exam ED Vital Signs: Vital Signs - 24 hr 09/01/24 09:32 09/01/24 10:44 09/01/24 11:53 Temperature 100.7 F H 100.8 F H 99.7 F Pulse Rate 116 H 96 65 Respiratory Rate 20 20 18 Blood Pressure 102/54 L 124/64 103/46 L Pulse Oximetry 98 96 98 Oxygen Delivery Method Room Air Room Air Room Air 09/01/24 12:04 Temperature 99.7 F Pulse Rate Respiratory Rate Blood Pressure Pulse Oximetry Oxygen Delivery Method BMI result Body Mass Index 25.3 Const Other: Alert, well-appearing Orientation/consciousness: patient oriented x3 HENMT Other: Oropharynx mildly erythematous without exudate, uvula midline, no trismus no drooling no swelling inferior to jawline, no sublingual fluctuance Resp Other: Nonlabored respirations, lungs clear to auscultation Skin Other: Warm dry no rash Neuro General: patient oriented x3, gait normal, no focal motor deficits and CN's II-XI intact bilaterally Psych Other: Cooperative Medications Administered Discontinued Medications Generic Name Dose Route Start Last Admin Trade Name Mikhail PRN Reason Stop Dose Admin Acetaminophen 975 mg 09/01/24 10:31 09/01/24 10:42 Acetaminophen 325 Mg Tablet PO 09/01/24 10:32 975 mg ONCE ONE Administration Sodium Chloride 1,000 mls @ 999 mls/hr 09/01/24 11:45 09/01/24 11:57 Ns IV 09/01/24 12:45 999 mls/hr .Q1H1M NORA Administration Ketorolac Tromethamine 15 mg 09/01/24 11:54 09/01/24 11:57 Ketorolac Tromethamine 15 Mg/Ml Vial IVPUSH 09/01/24 11:55 15 mg ONCE ONE Administration Medical Decision Making Medical Decision Making [facility] Narrative: 53-year-old female with a history of anxiety, migraine, vertigo, arthritis, hyperlipidemia presents with fever. Patient states she has been noting palpitations at home the began yesterday morning. Associated dry cough, sore throat, generalized myalgias. Patient denies sick contacts with same symptoms. Denies chest pain. No relevant chronic issues History: Per patient I have considered the following differential diagnoses: Viral syndrome, pneumonia, strep pharyngitis, RPA, CHAIR MECH[employer]IC Plan: Screening labs including viral panel were obtained from triage, the patient has influenza a. She tested negative for strep. She has no exam findings that are concerning for peritonsillar abscess or retropharyngeal abscess. She already received Tylenol, her temperature is now 99.7, she is mildly tachycardic we will give IV fluid and Toradol. I have independently reviewed the following tests: Labs: No leukocytosis, not anemic, no electrolyte abnormality, trop negative, strep screen negative, positive for influenza A EKG: Sinus tachycardia rate of 110, no ischemic changes no ectopy Lab Data 09/01/24 09:43 09/01/24 09:43 Labs: Lab Results 09/01/24 09/01/24 09/01/24 Range/Units 09:42 09:43 10:34 WBC 7.4 (4.8-10.8) X10*3/uL RBC 4.93 (4.20-5.50) X10*6/uL Hgb 14.4 (12.0-16.0) g/dl Hct 42.6 (37.0-47.0) % MCV 86.4 (80.0-98.0) fL MCH 29.2 (27.0-33.0) pg MCHC 33.8 (31.0-35.0) g/dl RDW 12.3 (11.0-16.0) % Plt Count 241 (160-400) X10*3/uL MPV 9.9 (9.4-12.3) fL Immature Gran % (Auto) 0.1 (0.0-0.4) % Neut % (Auto) 79.7 H (45-73) % Lymph % (Auto) 10.6 L (20-40) % [place] % (Auto) 8.0 (2-11) % Eos % (Auto) 1.2 (0-4) % Baso % (Auto) 0.4 (0-2) % Lymph # (Auto) 0.8 L (1.2-4.9) X10*3/uL [place] # (Auto) 0.6 (0.1-1.2) X10*3/uL Eos # (Auto) 0.1 (0.0-0.4) X10*3/uL Baso # (Auto) 0.0 (0.0-0.2) X10*3/uL Abs Immat Gran (auto) 0.01 (0.00-0.03) X10*3/uL Absolute Neuts (auto) 5.9 (2.0-8.3) x10*3/uL Absolute Nucleated RBC 0.000 (0.0-0.012) X10*3/uL Nucleated RBC % (auto) 0.0 (0.0-0.2) /100WBC Sodium 137 (135-145) mmol/L Potassium 4.0 (3.3-5.1) mmol/L Chloride 107 (96-108) mmol/L Carbon Dioxide 22 (22-29) mmol/L Anion Gap 12 (12-20) BUN 16 (9-16) mg/dL Creatinine 0.75 (0.5-1.4) mg/dL Estim Creat Clear Calc 83.6 Estimated GFR > 60 Random Glucose 117 H (60-115) mg/dL Calcium 9.1 (8.4-10.2) mg/dL Magnesium 1.9 (1.6-2.6) mg/dL Total Bilirubin 0.3 (0.0-1.0) mg/dL AST 23 (5-31) U/L ALT 26 (0-31) U/L Alkaline Phosphatase 94 (39-117) U/L Troponin I High Sens < 2.7 (<3.5-17.0) ng/L Total Protein 7.7 (6.5-8.0) g/dL Albumin 4.2 (3.5-5.0) g/dL Influenza Type A (PCR) POSITIVE A (Negative) Influenza Type B (PCR) NEGATIVE (Negative) RSV RNA Qual (PCR) NEGATIVE (Negative) SARS-CoV-2 RNA (RT-PCR) NEGATIVE (Negative) S. pyogenes GrpA SULLY Negative (Negative) Discharge Plan Discharge Clinical Impression: Influenza A Patient Disposition: Home, Self-Care Instructions: Influenza (ED) Additional Instructions: You tested positive for influenza A. See home care instructions. You can use [id number] Tylenol 1000 mg taken every 8 hours, alternated with [id number] ibuprofen 600 mg taken every 6 hours with food, for body aches and fevers. The remainder of your labs were normal. There were no concerning changes on your EKG. Follow up with your primary care provider as needed. Prescriptions: No Action cholecalciferol (vitamin D3) 50 mcg (2,000 unit) tablet 50 mcg PO DAILY Qty: 90 3RF fenofibrate 160 mg tablet 160 mg PO DAILY Qty: 90 2RF magnesium oxide 400 mg (241.3 mg magnesium) tablet 400 mg PO DAILY Qty: 90 1RF Lactobacillus acidophilus 100 mg (1 billion cell) capsule 100 mg PO DAILY Qty: 150 1RF budesonide 32 mcg/actuation spray,non-aerosol 2 spray intranasal BEDTIME Qty: 8.43 1RF Rx Instructions: administer into each nostril baclofen 5 mg tablet 5 mg PO BEDTIME MDD 10mg Qty: 90 2RF multivitamin Tablet 1 tab PO DAILY (DME) blood pressure monitor [Blood Pressure Kit] Kit See Rx Instructions .ROUTE .MEDSUPPLY Qty: 1 0RF Rx Instructions: As directed ondansetron HCl 4 mg tablet 4 mg PO Q8H PRN (Reason: nausea and vomiting) Qty: 20 0RF lorazepam [Ativan] 0.5 mg tablet 0.5 mg PO ONCE PRN (Reason: MRI procedure ) Qty: 1 0RF pantoprazole 40 mg tablet,delayed release (DR/EC) 40 mg PO DAILY Qty: 90 2RF meclizine 25 mg tablet 25 mg PO BID PRN (Reason: dizziness) Qty: 30 0RF loratadine 10 mg tablet 10 mg PO DAILY Qty: 90 2RF atorvastatin 20 mg tablet 20 mg PO DAILY Qty: 90 2RF Print Language: Lao
[2024-09-01 14:02] VITALS: BP 98/46; PULSE 86; RESP 18; TEMP 36.9; O2SAT 97
== END 2024-09-01 14:20 | disposition home or self-care (01) ==
PROVIDERS: Emergency Provider Emergency Medicine; PCP Internal Medicine
DX: J10.1 Influenza due to other identified influenza virus with other respiratory manifestations (principal); R00.0 Tachycardia, unspecified; R00.2 Palpitations; R50.9 Fever, unspecified; R05.9 Cough, unspecified
CPT/HCPCS: 0241U; 80053; 83735; 84484; 85025; 87651; 93005; 96374; 99284; 99285; J1885

== ENCOUNTER → 2024-09-01 09:33 | Outpatient (BNV) | payer OTHER, SELFPAY | PROVIDERS: Emergency Provider Emergency Medicine; PCP Internal Medicine; Visit Provider Internal Medicine Cardiovascular Disease | DX: R00.0 Tachycardia, unspecified (principal) | CPT/HCPCS: 93010 ==

== ENCOUNTER 2024-09-09 09:36 | Outpatient (AMB) | payer OTHER, SELFPAY ==
--- NOTE | 2024-09-09 09:39 | MHC.PC.OV ---
Vital Signs 09/09/24 09:45 Height 5 ft 5 in Weight 152 lb 4 oz BMI 25.3 BP 100/60 Blood Pressure Location Lt brachial Position Sitting Pulse 64 Pulse Source Pulse Oximeter Temp 97.1 F Temp Source Skin Pulse Oximetry (%) 98 Oxygen Delivery Method Room Air Intake Visit Reasons: Discharged on 07/01-[facility] Intake Note: Patient is here to follow-up after a visit the emergency department at [facility] on 09/01/24 Nurse Charge Rn Required: No Electronics Technician: Not Required per policy Accompanied by: Self / Same As Patient Allergies latex [Latex] Allergy (Mild, Verified 09/09/24 10:15) SWELLING/ITCHING Sulfa (Sulfonamide Antibiotics) Allergy (Mild, Verified 09/09/24 10:15) SWELLING/ITCHING, pruritis sulfamethoxazole [From BACTRIM] Allergy (Unknown, Verified 09/09/24 10:15) ITCHY/HIVES trimethoprim [From BACTRIM] Allergy (Unknown, Verified 09/09/24 10:15) ITCHY/HIVES metoclopramide [From REGLAN] Adverse Reaction (Unknown, Verified 09/09/24 10:15) AGITATION Medication List - Last Reconciled 09/09/24 by Sabi Romero PA-C albuterol sulfate 90 mcg/actuation 1 inh inhalation QID PRN atorvastatin 20 mg PO DAILY azithromycin For 250 mg dose pack: take 500 mg today (day 1), then 250 mg for 4 days (days 2-5) PO baclofen 5 mg PO BEDTIME MDD 10mg blood pressure monitor (Blood Pressure Kit) As directed budesonide 32 mcg/actuation 2 sprays intranasal BEDTIME cholecalciferol (vitamin D3) 50 mcg PO DAILY codeine-guaifenesin 10-100 mg/5 mL 5 mL PO Q6H PRN fenofibrate 160 mg PO DAILY Lactobacillus acidophilus 100 mg PO DAILY loratadine 10 mg PO DAILY lorazepam (Ativan) 0.5 mg PO ONCE PRN magnesium oxide 400 mg PO DAILY meclizine 25 mg PO BID PRN multivitamin 1 tab PO DAILY ondansetron HCl 4 mg PO Q8H PRN pantoprazole 40 mg PO DAILY Tobacco use date assessed: 09/09/24 Dental Screening Dental Screen Date: 07/29/24 [facility] Medical History Cough Dizziness Migraine Tubular adenoma of colon Calcium oxalate crystals in urine Varicose veins of legs Heart palpitations Multiple pigmented nevi Mild carpal tunnel syndrome of right wrist Annual physical exam Chronic idiopathic constipation Tachycardia Shoulder pain, bilateral Upper abdominal pain Pre-op examination SOB (shortness of breath) Mass of left upper extremity Left arm swelling Laceration of left hand Lightheadedness Otitis media Otitis externa Bilateral hand numbness Upper respiratory infection Low back pain Breast cancer screening by mammogram Thyroid nodule Oropharyngeal dysphagia UTI (urinary tract infection) Right kidney stone COVID-19 Chest pain Delayed gastric emptying Daytime sleepiness Snoring Migraine Vertigo Cervicalgia Unspecified Eustachian tube disorder, left ear Acute pharyngitis Urgency of micturition Abdominal pain Dysuria Diarrhea Hematuria Acute conjunctivitis of left eye Wound of right leg Abdominal cramping Allergic conjunctivitis Nephrolithiasis Colitis Interstitial cystitis Chronic cough COVID-19 long hauler COVID-19 Elevated lipase Pain in both knees Vaginal itching Suprapubic pain Vaginal spotting Hematuria Frequency of micturition Myalgia Post-vaccination reaction Palpitations Bilateral lower extremity pain Hearing deficit Frequency of micturition Toe swelling Toe pain, right Vitamin B12 deficiency Scalp cyst Vitamin D deficiency GERD (gastroesophageal reflux disease) Multiple thyroid nodules Lateral meniscal tear Restrictive lung disease Benign hematuria Hemorrhoids Irritable bowel syndrome Cervical disc herniation Impaired glucose tolerance Hypercholesterolemia Erosive esophagitis Surgical History Hx of colonoscopy H/O esophagogastroduodenoscopy S/P excision of lipoma Hx of tubal ligation History of lumpectomy of left breast Family History Father Skin cancer Mother Skin cancer High blood pressure Heart problem Maternal Grandfather Skin cancer Cancer FH: prostate cancer Brother Schizophrenia Other CVA (cerebral vascular accident) Mental health problem Social History Household Members: None Housing: Apartment Alcohol intake: never Patient Tobacco Use Status: Former Tobacco user Tobacco use type: Cigarette Years Smoked: quit 2007 e-Cigarette/Vaping Use: Never Used Second Hand Smoke Exposure: Yes service: No Current occupational status: employed 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 Bill Morris, Chiquis Webster, Duke Madera and colleagues, with an educational claudia from [employer]. Physical exam (Primary Care) Vital Signs: Last Vital Signs Temp 97.1 F 09/09/24 09:45 Pulse 64 09/09/24 09:45 BP 100/60 09/09/24 09:45 Pulse Ox 98 09/09/24 09:45 Oxygen Delivery Method Room Air 09/09/24 09:45 Care Plan Goal for BP management: <100/60 BMI result Body Mass Index 25.3 BMI Assessment/Plan discussion: High BMI High, discussed plan: lifestyle, weight reduction, dietary and physical activity Tobacco/Smoking Status: Tobacco use Status Tobacco use date assessed 09/09/24 09/09/24 09:50 Patient Tobacco Use Status Former Tobacco user 09/09/24 09:40 Tobacco use type Cigarette 09/09/24 09:40 e-Cigarette/Vaping Use Never Used 09/09/24 09:40 Thrive Assessment: Date of Thrive Assessment Date Thrive assessed 07/29/24 09/09/24 09:40 Coding Level of Care Code Est Pt Level 4 (25395) Diagnoses Cough R05.9 Influenza A J10.1 Assessment & Plan Assessment & Plan (1) Cough: Code(s): R05.9 - Cough, unspecified Category: Medical Plan: Patient with cough from Influenza A . Most likely bronchitis. H and P not consistent with pneumonia as patient is afebrile and not tachycardic. Will order chest x-ray, start on a Z-Marcelo, Robitussin with codeine and albuterol inhaler. Will continue to monitor (2) Influenza A: Code(s): J10.1 - Influenza due to other identified influenza virus with other respiratory manifestations Category: Medical Plan: Patient was diagnosed with influenza a on 09/01/2024 [facility] emergency department. Will continue to monitor. Plan Plan - Order chest X-ray to evaluate persistent cough and chest pain, ruling out pneumonia. - Prescribe azithromycin Z-Marcelo) for possible bacterial infection contributing to prolonged cough. - Prescribe antitussive containing codeine for cough suppression and pain relief. - Prescribe albuterol inhaler for symptomatic relief of shortness of breath associated with coughing. - Discussed avoidance of activities requiring operation of motor vehicles or machinery while taking codeine. - No prednisone as patient declines; monitor and follow up with primary care physician as scheduled. - Schedule follow-up if symptoms persist or worsen. Orders: Orders XR chest 2V Today J10.1 - Influenza due to other identified influenza virus with other respiratory manifestations, R05.9 - Cough, unspecified Medications: New albuterol sulfate 90 mcg/actuation 1 inh inhalation QID PRN 8.5 grams 1RF shortness of breath or wheezing azithromycin For 250 mg dose pack: take 500 mg today (day 1), then 250 mg for 4 days (days 2-5) PO 6 tabs 0RF codeine-guaifenesin 10-100 mg/5 mL 5 mL PO Q6H PRN 120 mL 0RF cough Patient Instructions: Patient Instructions - Take azithromycin as directed: two tablets on the first day, then one daily for four more days. - Use cough syrup with codeine at night only to help with sleep and reduce cough-associated chest pain. - Avoid driving or operating heavy machinery while on codeine. - Use the albuterol inhaler when experiencing shortness of breath from coughing. - Get a chest X-ray at your earliest convenience to rule out complications. - Follow up with primary care as scheduled for ongoing symptom assessment. Scribe Plan - Not visible on output: History of Present Illness The patient is a 53-year-old female presenting with persistent cough and rib/chest wall pain following a recent diagnosis of Influenza A. She initially visited the emergency department at [facility] on September 01, due to palpitations, cough, sore throat, and body aches which started the day before. Although no blood work was performed, screening labs included a viral panel revealing a positive result for Influenza A, and she was tachycardic. She was treated with Tylenol, fluids, and Toradol, and subsequently discharged. Since then, the patient's cough has persisted and exacerbated, causing significant rib/chest wall pain, although she reports no mucus production. Her cough has impeded sleep, and she expresses concern about the rib/chest wall, the pain is thought to be musculoskeletal. There is no fever currently. She reports diarrhea during the course of her illness but denies any rashes or vomiting. Her past medical encounters include a recent MRI, and she expresses concerns about radiation exposure from potential imaging. She is not experiencing shortness of breath but feels discomfort upon coughing. Social History - Denies smoking history - Denies alcohol consumption - No recent travel Review of Systems - Respiratory: Reports frequent coughing without mucus production - Cardiovascular: Denies heart palpitations currently - Gastrointestinal: Reports diarrhea; denies vomiting - General: Denies recent fever - Dermatological: Denies rash Physical Exam Appearance: Alert. Oriented X3. No acute distress. Head: Normal external exam. Normocephalic. Atraumatic. Eyes: Pupils are equal, round, and reactive to light. Extraocular movements intact. Conjunctiva and sclera normal. Eyelids normal. Ears: External auditory canal normal. Tympanic membranes normal. Throat: Pharynx normal. Uvula midline. Moist mucous membranes. Neck: Normal inspection. Neck supple. Full range of motion. No adenopathy. No meningeal signs. No neck mass noted. Cardiovascular: RRR. Heart sound normal. No murmurs noted. Pulses normal throughout. Respiratory: No respiratory distress. Painless inspiration. Breath sounds normal. No wheezes/rales/rhonchi noted. Chest nontender. No accessory muscle usage noted or decreased air movement noted. Abdomen: Soft and nontender.No distention noted. Back: No costovertebral angle tenderness. Full range of motion noted. Skin: Skin warm and dry. Normal skin color. Normal skin turgor. No rashes/lesions/lacerations noted. Extremities: Extremities exhibit normal range of motion. Extremities nontender. Neuro: Oriented X 3. No motor deficit. No sensory deficit. Reflexes normal. Results - Labs: Positive for Influenza A; negative for Streptococcal infection - Imaging: Recent MRI (details not specified) Plan - Order chest X-ray to evaluate persistent cough and chest pain, ruling out pneumonia. - Prescribe azithromycin Z-Marcelo) for possible bacterial infection contributing to prolonged cough. - Prescribe antitussive containing codeine for cough suppression and pain relief. - Prescribe albuterol inhaler for symptomatic relief of shortness of breath associated with coughing. - Discussed avoidance of activities requiring operation of motor vehicles or machinery while taking codeine. - No prednisone as patient declines; monitor and follow up with primary care physician as scheduled. - Schedule follow-up if symptoms persist or worsen. Patient was informed and verbally consented to the use of an ambient scribe for clinic note documentation during this visit. Discussion Notes I addressed the patient's concerns about the persistence of her symptoms post-Influenza A diagnosis. I explained the potential benefits of a chest X-ray to exclude pneumonia due to her prolonged cough and chest pain. The risks related to additional radiation exposure were explained in the context of her recent MRI. We discussed the use of azithromycin to treat any bacterial component that may be prolonging the illness and a codeine-containing syrup for symptomatic relief, emphasizing its narcotic content. Additionally, I informed the patient about the importance of avoiding driving or working while on this medication. We also chatted about the use of an albuterol inhaler to alleviate shortness of breath related to her cough. Patient Instructions - Take azithromycin as directed: two tablets on the first day, then one daily for four more days. - Use cough syrup with codeine at night only to help with sleep and reduce cough-associated chest pain. - Avoid driving or operating heavy machinery while on codeine. - Use the albuterol inhaler when experiencing shortness of breath from coughing. - Get a chest X-ray at your earliest convenience to rule out complications. - Follow up with primary care as scheduled for ongoing symptom assessment.
[2024-09-09 09:45] VITALS: BP 100/60; PULSE 64; TEMP 36.2; O2SAT 98; BMI 25.3
--- OUTSIDE RECORDS SUMMARY | 2024-09-09 10:07 | XMS_ITS | Clinical Summary ---
Author Organization [facility] Address [address] [place] [address] Phone Care Team Providers Care Dental Office Assistant Name Role Phone Gigi Barrow MD Primary Care Provider [phone] Allergies Active Allergy Reactions Criticality Noted Date Comments Latex 04/26/2011 Metoclopramide Hcl 07/15/2014 Other Reaction(s): Rash/Dermatitis Sulfa (Sulfonamide Antibiotics) Itching,Swelling Medium 04/26/2011 Sulfamethoxazole-Trimethop rim Itching,Swelling Medium 04/26/2011 Medications hydrOXYzine HCL (ATARAX) 10 mg tablet Active linaCLOtide (Linzess) 72 mcg capsule TAKE 1 CAPSULE BY MOUTH EVERY DAY IN THE MORNING Active finasteride (PROSCAR) 5 mg tablet Take 5 mg by mouth daily. Active lubiprostone (Amitiza) 8 mcg capsule Active LORazepam (ATIVAN) 0.5 mg tablet Active fluticasone propionate (FLONASE) 50 mcg/actuation nasal spray Active diclofenac (VOLTAREN) 50 mg EC tablet Active CHOLECALCIFEROL , VITAMIN D3, ORAL Take by mouth. Active pantoprazole (PROTONIX) 40 mg EC tablet Take 40 mg by mouth daily. Active Active Problems Problem Noted Date Diagnosed Date Pelvic pain 10/19/2020 Overview (08/13/2024): Last Assessment & Plan: No evidence of acute abdomen. I encouraged her to keep her follow up appts with urology and GI. We requested her US results from [facility], but they will not fax for 48 [...] drink = 0.6 oz pur e alcohol) Comments Unknown Sex and Gender Information Value Date Recorded Sex Assigned at Not on file Legal Sex Female 5:42 PM EST Gender Identity Not on file Sexual Orientation Not on file Obstetrics History Last Filed [...] EDT Office Visit Obstetrics & Gynecology - [address] [address] Graciela Rodriguez, CNM [address] [place] [address] Health Maintenance Due Date Last Done Comments Breast Cancer Screening 1969 DTaP,Tdap,and Td Vaccines (1 - Tdap) 1988 Hepatitis B Vaccines (1 of 3 - 19+ 3-dose series) 1988 Pneumococcal Vaccine: 50+ Ye ars (1 of 1 - PCV) 12/09/2019 Zoster Vaccines (1 of 2) 12/09/2019 Cholesterol [...] patient's age to complete this topic Meningococcal B Vacine Aged Out No lo nger eligible based on patient's age to complete [...] Associated Diagnosis Comments HM HPV Routine 10/21/2023 HEPATITIS C SCREENING Routine 10/21/2023 LIPID PANEL Routine 02/26/2012 COLONOSCOPY Routine 04/26/2011 from Last 3 Months or Most Recently Relevant to Health Maintenance Results * Cervical Cancer Screening: HPV (10/21/2023) Pathologist [facility] Cervical Cancer Screening: HPV Negative,A bstracted [facility] Provider HEALTH MAINTENANCE Final Result * Hepatitis C Screening (10/21/2023) [facility] Hepatitis C Screening Abstracted [facility] Provider HEALTH MAINTENANCE Final Result * Lipid panel (02/26/2012) [facility] LDL/HDL Ratio 0 Comment:no interpetation,Abs tracted Triglycerides 0 mg/dL Comment:no interpetation,Abs tracted Cholesterol 0 mg/dL Comment:no interpetation,Abs tracted HDL 0 mg/dL Comment:no interpetation,Abs tracted LDL Cholesterol 0 mg/dL Comment:no interpetation,Abs tracted Blood Venous blood specimen / Unknown [facility] Provider LAB BLOOD ORDERABLES Joy l Result * Colonoscopy (04/26/2011) Pathologist [facility] Colonoscopy no interpreta tion,Abstr acted Anatomical Region Laterality Modality Other [facility] Provider HEALTH MAINTENANCE Final Result from Last 3 Months or Most Recently Relevant to Health Maintenance Insurance [facility] [employer] Care Teams Dental Office Assistant Relationship Specialty Start Date End Date Gigi Barrow MD [address] [place] [address] [address] [facility] [place] [address] PCP - General Internal Medicine 02/20/16
== END 2024-09-09 10:14 | disposition home or self-care (01) ==
PROVIDERS: PCP Internal Medicine; Visit Provider Physician Assistant Medical
DX: R05.9 Cough, unspecified (principal); J10.1 Influenza due to other identified influenza virus with other respiratory manifestations

== ENCOUNTER → 2024-09-09 09:36 | Outpatient (BNVA) | payer OTHER, SELFPAY | PROVIDERS: PCP Internal Medicine; Visit Provider Physician Assistant Medical | DX: R05.9 Cough, unspecified (principal); J10.1 Influenza due to other identified influenza virus with other respiratory manifestations | CPT/HCPCS: 99212 ==

== ENCOUNTER 2024-09-10 15:19 | Outpatient (REF) | payer OTHER, SELFPAY ==
--- NOTE | ~2024-09-10 | XR_ITS ---
EXAMINATION: XR CHEST 2 VIEWS HISTORY: R05.9 - Cough, unspecified COMPARISON: Comparison is made with the prior examination dated 01/19/2023. FINDINGS: PA and lateral views of the chest are submitted. The lungs are expanded and clear. There is no pleural effusion, pneumothorax, or pulmonary vascular congestion. The heart is normal in size. The bones are intact. XR/XR chest 2V IMPRESSION: No acute cardiopulmonary abnormality. Electronically signed by: Bill Viveros MD 09/10/2024 04:29 PM PHILLIP
--- OUTSIDE RECORDS SUMMARY | 2024-09-10 15:22 | XMS_ITS | Clinical Summary ---
Author Organization [facility] Address [address] [place] [address] Phone Care Team Providers Care Settlement Clerk Name Role Phone Gigi Barrow MD Primary Care Provider [phone] Allergies Active Allergy Reactions Criticality Noted Date [...] GI. We requested her US results from [facility], but they will not fax for 48 [...] EDT Office Visit Obstetrics & Gynecology - [address] [address] Graciela Rodriguez, CNM [address] [place] [address] Health Maintenance Due Date Last Done Comments [...] * Cervical Cancer Screening: HPV (10/21/2023) Pathologist [facility] Cervical Cancer Screening: HPV Negative,A bstracted [facility] Provider HEALTH MAINTENANCE Final Result * Hepatitis C Screening (10/21/2023) [facility] Hepatitis C Screening Abstracted [facility] Provider HEALTH MAINTENANCE Final Result * Lipid panel (02/26/2012) [facility] LDL/HDL Ratio 0 Comment:no interpetation,Abs tracted Triglycerides 0 mg/dL Comment:no interpetation,Abs tracted Cholesterol 0 mg/dL Comment:no interpetation,Abs tracted HDL 0 mg/dL Comment:no interpetation,Abs tracted LDL Cholesterol 0 mg/dL Comment:no interpetation,Abs tracted Blood Venous blood specimen / Unknown [facility] Provider LAB BLOOD ORDERABLES Joy l Result * Colonoscopy (04/26/2011) Pathologist [facility] Colonoscopy no interpreta tion,Abstr acted Anatomical Region Laterality Modality Other [facility] Provider HEALTH MAINTENANCE Final Result from Last 3 Months or Most Recently Relevant to Health Maintenance Insurance [facility] [employer] Care Teams Settlement Clerk Relationship Specialty Start Date End Date Gigi Barrow MD [address] [place] [address] [address] [facility] [place] [address] PCP - General Internal Medicine 02/20/16
== END 2024-09-10 15:20 | disposition home or self-care (01) ==
LOC: HO.XRAY 15:19
PROVIDERS: PCP Internal Medicine; Visit Provider Physician Assistant Medical
DX: R05.9 Cough, unspecified (principal); J10.1 Influenza due to other identified influenza virus with other respiratory manifestations
CPT/HCPCS: 71046

== ENCOUNTER → 2024-09-10 15:23 | Outpatient (BNV) | payer OTHER, SELFPAY | PROVIDERS: PCP Internal Medicine; Visit Provider Radiology Diagnostic Radiology | DX: R05.9 Cough, unspecified (principal) | CPT/HCPCS: 71046 ==

== ENCOUNTER 2024-09-15 08:01 | Outpatient (AMB) | payer OTHER, SELFPAY ==
--- OUTSIDE RECORDS SUMMARY | 2024-09-15 08:06 | XMS_ITS | Clinical Summary ---
Author Organization [facility] Address [address] [place] [address] Phone Care Team Providers Care Cutting Machine Offbearer Name Role Phone Gigi Barrow MD Primary Care Provider [phone] Allergies Active Allergy Reactions Criticality Noted Date [...] EDT Office Visit Obstetrics & Gynecology - [address] [address] Graciela Rodriguez, CNM [address] [place] [address] Health Maintenance Due Date Last Done Comments [...] Cervical Cancer Screening: HPV (10/21/2023) Pathologist [facility] Cervical Cancer Screening: HPV Negative,A bstracted [facility] Provider HEALTH MAINTENANCE Final Result * Hepatitis C Screening (10/21/2023) [facility] Hepatitis C Screening Abstracted [facility] Provider HEALTH MAINTENANCE Final Result * Lipid panel (02/26/2012) [facility] LDL/HDL Ratio 0 Comment:no interpetation,Abs tracted Triglycerides 0 mg/dL Comment:no interpetation,Abs tracted Cholesterol 0 mg/dL Comment:no interpetation,Abs tracted HDL 0 mg/dL Comment:no interpetation,Abs tracted LDL Cholesterol 0 mg/dL Comment:no interpetation,Abs tracted Blood Venous blood specimen / Unknown [facility] Provider LAB BLOOD ORDERABLES Joy l Result * Colonoscopy (04/26/2011) Pathologist [facility] Colonoscopy no interpreta tion,Abstr acted Anatomical Region Laterality Modality Other [facility] Provider HEALTH MAINTENANCE Final Result from Last 3 Months or Most Recently Relevant to Health Maintenance Insurance [facility] [employer] Care Teams Cutting Machine Offbearer Relationship Specialty Start Date End Date Gigi Barrow MD [address] [place] [address] [address] [facility] [place] [address] PCP - General Internal Medicine 02/20/16
--- NOTE | 2024-09-15 08:08 | AM.OFFWIN_ITS ---
Intake Vital Signs 09/15/24 08:12 Weight 154 lb BP 114/72 Blood Pressure Location Rt brachial Position Sitting Pulse 79 Pulse Source Pulse Oximeter Temp 98.2 F Temp Source Oral Pulse Oximetry (%) 98 Oxygen Delivery Method Room Air Intake Visit Reasons: EP-cough, chest pain Intake Note: Patient here because she had the flu about 3 weeks ago and cough has not gone away since then. Patient Tobacco Use Status: Former Tobacco user Allergies latex [Latex] Allergy (Mild, Verified 09/15/24 08:15) SWELLING/ITCHING Sulfa (Sulfonamide Antibiotics) Allergy (Mild, Verified 09/15/24 08:15) SWELLING/ITCHING, pruritis sulfamethoxazole [From BACTRIM] Allergy (Unknown, Verified 09/15/24 08:15) ITCHY/HIVES trimethoprim [From BACTRIM] Allergy (Unknown, Verified 09/15/24 08:15) ITCHY/HIVES metoclopramide [From REGLAN] Adverse Reaction (Unknown, Verified 09/15/24 08:15) AGITATION Do you need a note to return to daycare/school/sports/work: No HPI HPI Comments History of Present Illness Details Patient is a 53yo F who presents to office with complaint of cough She was seen at the hospital and diagnosed with the flu 2-3 weeks ago; 09/01 She said cough has been constistent She has tried cough syrup given by provider but unable to fill it Xray from 09/10 is negative for PNA Mucinex without relief + dry cough No fever or chills States slight scratchy throat and aching in chest with coughing No congestion PFSH Medical History Cough Dizziness Migraine Tubular adenoma of colon Calcium oxalate crystals in urine Varicose veins of legs Heart palpitations Multiple pigmented nevi Mild carpal tunnel syndrome of right wrist Annual physical exam Chronic idiopathic constipation Tachycardia Shoulder pain, bilateral Upper abdominal pain Pre-op examination SOB (shortness of breath) Mass of left upper extremity Left arm swelling Laceration of left hand Lightheadedness Otitis media Otitis externa Bilateral hand numbness Upper respiratory infection Low back pain Breast cancer screening by mammogram Thyroid nodule Oropharyngeal dysphagia UTI (urinary tract infection) Right kidney stone COVID-19 Chest pain Delayed gastric emptying Daytime sleepiness Snoring Migraine Vertigo Cervicalgia Unspecified Eustachian tube disorder, left ear Acute pharyngitis Urgency of micturition Abdominal pain Dysuria Diarrhea Hematuria Acute conjunctivitis of left eye Wound of right leg Abdominal cramping Allergic conjunctivitis Nephrolithiasis Colitis Interstitial cystitis Chronic cough COVID-19 long hauler COVID-19 Elevated lipase Pain in both knees Vaginal itching Suprapubic pain Vaginal spotting Hematuria Frequency of micturition Myalgia Post-vaccination reaction Palpitations Bilateral lower extremity pain Hearing deficit Frequency of micturition Toe swelling Toe pain, right Vitamin B12 deficiency Scalp cyst Vitamin D deficiency GERD (gastroesophageal reflux disease) Multiple thyroid nodules Lateral meniscal tear Restrictive lung disease Benign hematuria Hemorrhoids Irritable bowel syndrome Cervical disc herniation Impaired glucose tolerance Hypercholesterolemia Erosive esophagitis Surgical History Hx of colonoscopy H/O esophagogastroduodenoscopy S/P excision of lipoma Hx of tubal ligation History of lumpectomy of left breast Family History Father Skin cancer Mother Skin cancer High blood pressure Heart problem Maternal Grandfather Skin cancer Cancer FH: prostate cancer Brother Schizophrenia Other CVA (cerebral vascular accident) Mental health problem Social History Household Members: None Housing: Apartment Alcohol intake: never Patient Tobacco Use Status: Former Tobacco user Tobacco use type: Cigarette Years Smoked: quit 2007 e-Cigarette/Vaping Use: Never Used Second Hand Smoke Exposure: Yes service: No Current occupational status: employed 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 Current occupational exposures/hazards: No Cognitive needs: No Hearing needs: No Vision needs: No Review of Systems Const Denies chills, Denies fatigue and Denies fever(s) ENT Denies dizziness, Denies otalgia, Denies nasal congestion and Reports sore throat Card Denies chest pain at rest and Denies dyspnea on exertion Resp Denies change in phlegm color, Reports chest congestion, Reports cough, Denies hemoptysis, Reports pain with cough and Denies dyspnea on exertion Musc Denies myalgias Neuro Denies dizziness Endo Denies fatigue Physical Exam Vital Signs: Last Vital Signs Temp 98.2 F 09/15/24 08:12 Pulse 79 09/15/24 08:12 BP 114/72 09/15/24 08:12 Pulse Ox 98 09/15/24 08:12 Oxygen Delivery Method Room Air 09/15/24 08:12 General: Non-toxic, NAD. Speaking full sentences. Skin: Warm dry throughout Eye: EOMI HENT: Airway patent. Uvula midline. No pharyngeal erythema or edema. No ATOMIC SPECTROSCOPIST. Bilateral canals clear. TM non-erythematous, non-bulging. No TM perforation or hemotympanum noted. Respiratory: CTA bilaterally. No wheezes, rales or rhonchi Cardiac: RRR. No murmur MSK: Full ROM extremities. Neurology: alert. No aphasia or facial droop. Gait without abnormality Psych: Good mood and affect Results AMB Rapid Strep AMB Rapid Strep Cancelled Last Edit by CARLOS Ortiz on 09/15/24 08:33 AMB Rapid Strep previously reported as Negative Keeley Roberson 09/15/24 08:33 CANCELLED put in error Results Reviewed Results Reviewed: Laboratory Last Values Strep Scn Rapid Clinic Cancelled 09/15/24 08:28 Assessment & Plan Assessment & Plan (1) Cough: Code(s): R05.9 - Cough, unspecified Qualifiers: Cough type: subacute Qualified Code(s): R05.2 - Subacute cough Plan: Patient seen and evaluated. I called [facility] in [place] and cancelled script with pharmacist that was placed on 09/09 for codeine cough syrup I send new script into [facility] per pt request Discussed + lethargy; no alcohol or driving. She is not taking ativan or baclofen and is aware she cant with this medicine Discussed don't take at work, and best to take at night Patient gave verbal understanding and had no additional questions or concerns at time of discharge All questions answered Medications: New codeine-guaifenesin 10-100 mg/5 mL 5 mL PO Q6H PRN 118 mL 0RF cold symptoms Coding Level of Care Code Est Pt Level 3 (46999) Diagnoses Subacute cough R05.2 Cough type: subacute
[2024-09-15 08:12] VITALS: BP 114/72; PULSE 79; TEMP 36.8; O2SAT 98
== END 2024-09-15 08:31 | disposition home or self-care (01) ==
PROVIDERS: PCP Internal Medicine; Visit Provider Physician Assistant
DX: Z13.9 Encounter for screening, unspecified (principal); R05.2 Subacute cough

== ENCOUNTER → 2024-09-15 08:01 | Outpatient (BNVA) | payer OTHER, SELFPAY | PROVIDERS: PCP Internal Medicine | DX: R05.2 Subacute cough (principal) | CPT/HCPCS: 99212 ==

== ENCOUNTER 2024-09-27 06:30 | Outpatient (REF) | payer OTHER, SELFPAY ==
--- OUTSIDE RECORDS SUMMARY | 2024-09-27 06:47 | XMS_ITS | Clinical Summary ---
Author Organization [facility] Address [address] [place] [address] Phone Care Team Providers Care Athletic Director Name Role Phone Gigi Barrow MD Primary Care Provider [phone] Allergies Active Allergy Reactions Criticality Noted Date [...] GI. We requested her US results from [facility] [place], but they will [...] EDT Office Visit Obstetrics & Gynecology - [address] [address] Graciela Rodriguez, CNM [address] [place] [address] Health Maintenance Due Date Last Done Comments [...] * Cervical Cancer Screening: HPV (10/21/2023) Pathologist [facility] Cervical Cancer Screening: HPV Negative,A bstracted [facility] Provider HEALTH MAINTENANCE Final Result * Hepatitis C Screening (10/21/2023) [facility] Hepatitis C Screening Abstracted [facility] Provider HEALTH MAINTENANCE Final Result * Lipid panel (02/26/2012) [facility] LDL/HDL Ratio 0 Comment:no interpetation,Abs tracted Triglycerides 0 mg/dL Comment:no interpetation,Abs tracted Cholesterol 0 mg/dL Comment:no interpetation,Abs tracted HDL 0 mg/dL Comment:no interpetation,Abs tracted LDL Cholesterol 0 mg/dL Comment:no interpetation,Abs tracted Blood Venous blood specimen / Unknown [facility] Provider LAB BLOOD ORDERABLES Joy l Result * Colonoscopy (04/26/2011) Pathologist [facility] Colonoscopy no interpreta tion,Abstr acted Anatomical Region Laterality Modality Other [facility] Provider HEALTH MAINTENANCE Final Result from Last 3 Months or Most Recently Relevant to Health Maintenance Insurance [facility] Care Teams Athletic Director Relationship Specialty Start Date End Date Gigi Barrow MD [address] [place] [address] [address] [facility] [place] [address] PCP - General Internal Medicine 02/20/16
[2024-09-27 07:14] LABS: Appearance Urine Clear; Color Urine Yellow; Glucose Urine UA Negative (Negative); Leukocyte Esterase Urine Small (1+) (Negative); Nitrite Urine Negative (Negative); PH 5.5 (5.0-9.0); UMIC TRIGGER UACC YES; Urine Blood Moderate (2+) (Negative); Urine Ketones Negative (Negative); Urine Protein Negative (Neg-Trace)
[2024-09-27 07:24] LABS: Bacteria Urine None Seen (None Seen); Hyaline Casts Urine 0-2 /LPF (0-2); Squamous Epithelial Cell Urine 0-2 /HPF (0-2); UACC Culture Trigger YES; WBC Urine 0-5 /HPF (0-5)
[2024-09-27 07:29] LABS: Estimated Average Glucose 117 mg/dL; Hemoglobin A1C 139.4218 umol/L; Hemoglobin A1c % 5.7 % (<6.0); Total Hemoglobin (HGBA1C) 3574.9812 umol/L
[2024-09-27 07:35] LABS: Alanine Aminotransferase 18 U/L (0-31); Albumin Level 4.2 g/dL (3.5-5.0); Alkaline Phosphatase 88 U/L (39-117); Anion Gap 12 (12-20); Aspartate Amino Transferase 21 U/L (5-31); Bilirubin Total 0.4 mg/dL (0.0-1.0); Blood Urea Nitrogen 19 mg/dL (9-16); Calcium 9.7 mg/dL (8.4-10.2); Carbon Dioxide 27 mmol/L (22-29); Chloride 107 mmol/L (96-108); Cholesterol 248 mg/dL (<200); Estimated Glomerular Filt Rate > 60; Glucose Random 103 mg/dL (60-115); HDL Cholesterol 59 mg/dL (>40); LDL Cholesterol Calculated 148 mg/dL (<100); Potassium 4.2 mmol/L (3.3-5.1); Sodium 142 mmol/L (135-145); Total Protein 7.9 g/dL (6.5-8.0); Triglycerides 209 mg/dL (<150)
== END 2024-09-27 06:31 | disposition home or self-care (01) ==
LOC: HO.LAB 06:30
PROVIDERS: PCP Internal Medicine; Visit Provider Internal Medicine
DX: E78.00 Pure hypercholesterolemia, unspecified (principal)
CPT/HCPCS: 36415; 80053; 80061; 81001; 83036; 87086

== ENCOUNTER 2024-09-29 13:19 | Outpatient (AMB) | payer OTHER, SELFPAY ==
[2024-09-29 13:24] VITALS: BP 108/62; PULSE 78; O2SAT 98; BMI 26.3
--- NOTE | 2024-09-29 13:24 | MHC.PC.OV ---
Vital Signs 09/29/24 13:24 Height 5 ft 5 in Weight 158 lb BMI 26.3 BP 108/62 Blood Pressure Location Lt brachial Position Sitting Pulse 78 Pulse Source Pulse Oximeter Pulse Oximetry (%) 98 Oxygen Delivery Method Room Air Intake Visit Reasons: cholesterol, IGT Allergies latex [Latex] Allergy (Mild, Verified 09/29/24 13:24) SWELLING/ITCHING Sulfa (Sulfonamide Antibiotics) Allergy (Mild, Verified 09/29/24 13:24) SWELLING/ITCHING, pruritis sulfamethoxazole [From BACTRIM] Allergy (Unknown, Verified 09/29/24 13:24) ITCHY/HIVES trimethoprim [From BACTRIM] Allergy (Unknown, Verified 09/29/24 13:24) ITCHY/HIVES metoclopramide [From REGLAN] Adverse Reaction (Unknown, Verified 09/29/24 13:24) AGITATION Tobacco use date assessed: 09/09/24 Dental Screening Dental Screen Date: 07/29/24 [facility] Medical History Cough Dizziness Migraine Tubular adenoma of colon Calcium oxalate crystals in urine Varicose veins of legs Heart palpitations Multiple pigmented nevi Mild carpal tunnel syndrome of right wrist Annual physical exam Chronic idiopathic constipation Tachycardia Shoulder pain, bilateral Upper abdominal pain Pre-op examination SOB (shortness of breath) Mass of left upper extremity Left arm swelling Laceration of left hand Lightheadedness Otitis media Otitis externa Bilateral hand numbness Upper respiratory infection Low back pain Breast cancer screening by mammogram Thyroid nodule Oropharyngeal dysphagia UTI (urinary tract infection) Right kidney stone COVID-19 Chest pain Delayed gastric emptying Daytime sleepiness Snoring Migraine Vertigo Cervicalgia Unspecified Eustachian tube disorder, left ear Acute pharyngitis Urgency of micturition Abdominal pain Dysuria Diarrhea Hematuria Acute conjunctivitis of left eye Wound of right leg Abdominal cramping Allergic conjunctivitis Nephrolithiasis Colitis Interstitial cystitis Chronic cough COVID-19 long hauler COVID-19 Elevated lipase Pain in both knees Vaginal itching Suprapubic pain Vaginal spotting Hematuria Frequency of micturition Myalgia Post-vaccination reaction Palpitations Bilateral lower extremity pain Hearing deficit Frequency of micturition Toe swelling Toe pain, right Vitamin B12 deficiency Scalp cyst Vitamin D deficiency GERD (gastroesophageal reflux disease) Multiple thyroid nodules Lateral meniscal tear Restrictive lung disease Benign hematuria Hemorrhoids Irritable bowel syndrome Cervical disc herniation Impaired glucose tolerance Hypercholesterolemia Erosive esophagitis Surgical History Hx of colonoscopy H/O esophagogastroduodenoscopy S/P excision of lipoma Hx of tubal ligation History of lumpectomy of left breast Family History Father Skin cancer Mother Skin cancer High blood pressure Heart problem Maternal Grandfather Skin cancer Cancer FH: prostate cancer Brother Schizophrenia Other CVA (cerebral vascular accident) Mental health problem Social History Household Members: None Housing: Apartment Alcohol intake: never Patient Tobacco Use Status: Former Tobacco user Tobacco use type: Cigarette Years Smoked: quit 2007 e-Cigarette/Vaping Use: Never Used Second Hand Smoke Exposure: Yes service: No Current occupational status: employed 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 1. Little interest or pleasure in doing things: not at all 2. Feeling down, depressed, or hopeless: not at all 3. Trouble falling or staying asleep, or sleeping too much: not at all 4. Feeling tired or having little energy: not at all 5. Poor appetite or overeating: not at all 6. Feeling bad about yourself - or that you are a failure or have let yourself or your family down: not at all 7. Trouble concentrating on things, such as reading the newspaper or watching television: not at all 8. Moving or speaking so slowly that other people could have noticed. Or the opposite - being so fidgety or restless that you have been moving around a lot more than usual: not at all 9. Thoughts that you would be better off or of hurting yourself in some way: not at all Total score: 0 Depression Screening Interpretation: Positive Depression Screening Follow-up: Existing condition and In treatment Depression Screening Done: Yes 82860 - PHQ-9 Billing: Yes Source: Developed by Drs. Bill Morris, Chiquis BDuke Lucio and colleagues, with an educational claudia from [employer]. Thrive Questionnaire Date Thrive assessed: 07/29/24 PACO-7 AMB Questionnaire PACO-7 Date PACO - 7 assessed: 07/29/24 Source: Developed by Drs. Bill Morris, Duke Walker and colleagues, with an educational claudia from [employer]. Physical exam (Primary Care) Vital Signs: Last Vital Signs Pulse 78 09/29/24 13:24 BP 108/62 09/29/24 13:24 Pulse Ox 98 09/29/24 13:24 Oxygen Delivery Method Room Air 09/29/24 13:24 BMI result Body Mass Index 26.3 Tobacco/Smoking Status: Tobacco use Status Tobacco use date assessed 09/09/24 09/29/24 13:34 Patient Tobacco Use Status Former Tobacco user 09/29/24 13:34 Tobacco use type Cigarette 09/29/24 13:34 e-Cigarette/Vaping Use Never Used 09/29/24 13:34 PHQ-9: PHQ-9 Score PHQ-9: Total score 0 09/29/24 14:12 Depression Screening Interpretation: Positive Depression Screening Follow-up: Existing condition and In treatment Thrive Assessment: Date of Thrive Assessment Date Thrive assessed 07/29/24 09/29/24 13:34 Const General: alert; No acute distress Eyes Conjunctivae: conjunctivae normal Resp Auscultation: clear to auscultation bilaterally Cardio Rate: regular rate Rhythm: regular rhythm GI Inspection: Yes normal to inspection Extrem General: Yes normal to inspection and No edema Coding Level of Care Code Est Pt Level 4 (75963) Complex EM visit Add On G2211 Diagnoses Erosive esophagitis K22.10 Hypercholesterolemia E78.00 Impaired glucose tolerance R73.02 Gastroesophageal reflux disease without esophagitis K21.9 Esophagitis presence: without esophagitis Post-nasal drip R09.82 Additional Codes PHQ-9 - 16127 - PHQ-9 Billing: Yes ([id number]) Assessment & Plan Assessment & Plan (1) Erosive esophagitis: Comment: 02/2024 scope= well healed normal ; EGD and colon December 2018 , May 2019 5 years Code(s): K22.10 - Ulcer of esophagus without bleeding Category: Medical Plan: Avoid the foods that causes that usually spicy foods, tomato products, juices, coffee, soda and foods that your sensitive to. After eating do not lie down, allow 3-4 hours before in lie down. And keep the head of bed above 30 degrees to avoid the acid from going up. Patient on pantoprazole (2) Hypercholesterolemia: Code(s): E78.00 - Pure hypercholesterolemia, unspecified Category: Medical Plan: Avoid fried foods, chicken skin, eggs, butter margarine, pastries and meat. Be it pork or beef they have a lot of cholesterol LDL goal of less than 130 and triglyceride of less than 150 on fenofibrate and atorvastatin (3) Impaired glucose tolerance: Code(s): R73.02 - Impaired glucose tolerance (oral) Category: Medical Plan: Decrease the amount of carbohydrate intake, pasta, bread, rice and potatoes are all sugar and that is aside from all the sweet stuff, remember that fruits are good but they are Sweet also. (4) GERD (gastroesophageal reflux disease): Code(s): K21.9 - Gastro-esophageal reflux disease without esophagitis Category: Medical Qualifiers: Esophagitis presence: without esophagitis Qualified Code(s): K21.9 - Gastro-esophageal reflux disease without esophagitis Plan: Avoid the foods that causes that usually spicy foods, tomato products, juices, coffee, soda and foods that your sensitive to. After eating do not lie down, allow 3-4 hours before in lie down. And keep the head of bed above 30 degrees to avoid the acid from going up. (5) Post-nasal drip: Code(s): R09.82 - Postnasal drip Category: Medical Plan History of Present Illness The patient is a 53-year-old female with a history of multiple chronic conditions including migraines and peripheral vascular disease. She is following up for hypercholesterolemia, GERD, and cervical degenerative changes. Her cholesterol levels have seen some improvement, with LDL now at 148 mg/dL, although higher than the desired level of 130 mg/dL. Her blood sugar levels have improved slightly, with a current hemoglobin A1c of 5.7. Neck pain remains a significant complaint, attributed to arthritis and degenerative disc disease. She has persistent cervical discomfort, exacerbated by stress. The patient mentioned hematuria without associated infection and is coping with employment-related stress, impacting her overall well-being. Health Maintenance - Mammogram: Last screening in July 2024. - Colonoscopy: Performed in March 2024. - Lipid profile: LDL 148 mg/dL in September 2024, goal <130 mg/dL. - Blood sugar: Improved to 103 mg/dL, A1c is 5.7. - GERD management: Pantoprazole as per current regimen. Social History - Employment: The patient reports recent unemployment and financial stress. - Housing: Expressing difficulty paying rent. - Family Status: No specific details provided. - Exercise: Reports lack of regular exercise. - Stress Factors: High levels of personal stress affecting mental and physical health. Review of Systems - General: Denies dizziness, weakness. - Respiratory: Denies breathing difficulties. - Gastrointestinal: Reports GERD. - Musculoskeletal: Reports neck pain. - Neurological: Reports migraines. - Psychological: Reports stress and anxiety. Physical Exam - Respiratory- Lungs clear to auscultation bilaterally. - Neurologic- Not specified in detail. - Musculoskeletal- Not specified in detail. Results - Labs: Normal blood count and electrolytes in August 2024. - Diagnostic Testing: Renal function normal with elevated blood sugar. LDL cholesterol was 148 mg/dL, triglycerides 209 mg/dL. Hemoglobin A1c at 5.7. - Urinalysis: Positive for hematuria, no infection. Plan We will continue atorvastatin and fenofibrate for hypercholesterolemia management with the target LDL to be less than 130 mg/dL. Pantoprazole will be continued for GERD management. Physical therapy for cervical degenerative changes remains essential, with no significant herniation noted on previous evaluations. The patient will monitor hematuria symptoms, and supportive care for stress management is advised. Follow-up blood tests for lipid profile and blood sugar levels are scheduled in three months. Patient was informed and verbally consented to the use of an ambient scribe for clinic note documentation during this visit. Discussion Notes I explained the importance of managing chronic conditions such as hypercholesterolemia and GERD. We discussed the current plan for atorvastatin and fenofibrate, targeting LDL levels below 130 mg/dL. I addressed the patient's neck pain and the role of physical therapy in managing arthritis-related discomfort. Hematuria was discussed, and given the absence of infection, I suggested observation at this time. We spent time addressing stress and mental health concerns, recognizing the impact of personal and financial stress on her wellbeing. Follow-up for repeat labs in three months was advised. I encouraged open communication regarding any changes in symptoms or concerns. Patient Instructions - Continue atorvastatin and fenofibrate for cholesterol management. - Maintain current GERD treatment with pantoprazole. - Engage in regular physical therapy exercises for neck pain management. - Monitor for symptoms of hematuria and report any new concerns. - Reduce stress levels through relaxation and supportive resources. - Follow up with blood work in three months for lipid profile and blood sugar levels. - Report any new or worsening symptoms or concerns as needed. Orders: Orders Hemoglobin A1c 3 Months R73.02 - Impaired glucose tolerance (oral) Comprehensive Met. Panel 3 Months R73.02 - Impaired glucose tolerance (oral) Lipid Panel 3 Months E78.00 - Pure hypercholesterolemia, unspecified, R73.02 - Impaired glucose tolerance (oral) Thyroid Stimulating Hormone 3 Months R73.02 - Impaired glucose tolerance (oral) Vitamin D 25-OH Total 3 Months R73.02 - Impaired glucose tolerance (oral) Free T4 (Free Thyroxine) 3 Months R73.02 - Impaired glucose tolerance (oral) Vitamin B12 and Folate 3 Months R73.02 - Impaired glucose tolerance (oral) Medications: New fluticasone propionate 50 mcg/actuation (Flonase Allergy Relief) administer into each nostril 2 sprays intranasal DAILY 16 grams 0RF R09.82 - Postnasal drip Discontinued budesonide 32 mcg/actuation administer into each nostril Discontinued Reason: Doctor's Order 2 sprays intranasal BEDTIME 8.43 mL 1RF
--- OUTSIDE RECORDS SUMMARY | 2024-09-29 15:52 | XMS_ITS | Clinical Summary ---
Author Organization [facility] Address [address] [place] [address] Phone Care Team Providers Care [employer]tr [employer] Driver Name Role Phone Gigi Barrow MD Primary Care Provider [phone] Allergies Active Allergy Reactions Criticality Noted Date [...] GI. [place] [facility] [place] not [place] for [...] Office Visit Obstetrics & Gynecology - [address] [address] Graciela Rodriguez, CNM [address] [place] [address] Health Maintenance Due Date Last Done Comments [...] * Cervical Cancer Screening: HPV (10/21/2023) [facility]ologist [facility] Cervical Cancer Screening: HPV Negative,A bstracted [facility] Provider HEALTH MAINTENANCE Final Result * Hepatitis C Screening (10/21/2023) [facility] Hepatitis C Screening Abstracted [facility] Provider HEALTH MAINTENANCE Final Result * Lipid panel (02/26/2012) [facility] LDL/HDL Ratio 0 Comment:no interpetation,Abs tracted Triglycerides 0 mg/dL Comment:no interpetation,Abs tracted Cholesterol 0 mg/dL Comment:no interpetation,Abs tracted HDL 0 mg/dL Comment:no interpetation,Abs tracted LDL Cholesterol 0 mg/dL Comment:no interpetation,Abs tracted Blood Venous blood specimen / Unknown [facility] Provider LAB BLOOD ORDERABLES Joy l Result * Colonoscopy (04/26/2011) [facility]ologist [facility] Colonoscopy no interpreta tion,Abstr acted Anatomical Region Laterality Modality Other [facility] Provider HEALTH MAINTENANCE Final Result from Last 3 Months or Most Recently Relevant to Health Maintenance Insurance [facility] PLAN Care Teams Otr Company Driver Relationship Specialty Start Date End Date Gigi Barrow MD [address] [place] [address] [address] [facility] [place] [address] PCP - General Internal Medicine 02/20/16
== END 2024-09-29 14:34 | disposition home or self-care (01) ==
PROVIDERS: PCP Internal Medicine; Visit Provider Internal Medicine
DX: K22.10 Ulcer of esophagus without bleeding (principal); E78.00 Pure hypercholesterolemia, unspecified; R73.02 Impaired glucose tolerance (oral); K21.9 Gastro-esophageal reflux disease without esophagitis; R09.82 Postnasal drip

== ENCOUNTER → 2024-09-29 13:19 | Outpatient (BNVA) | payer OTHER, SELFPAY | PROVIDERS: PCP Internal Medicine; Visit Provider Internal Medicine | DX: K22.10 Ulcer of esophagus without bleeding (principal); E78.00 Pure hypercholesterolemia, unspecified; R73.02 Impaired glucose tolerance (oral); K21.9 Gastro-esophageal reflux disease without esophagitis; R09.82 Postnasal drip | CPT/HCPCS: 96127; 99212 ==

== ENCOUNTER 2024-10-15 08:40 | Outpatient (REF) | payer OTHER, SELFPAY ==
--- NOTE | ~2024-10-15 | FL_ITS ---
EXAMINATION: XR BARIUM SWALLOW CLINICAL INFORMATION: Dysphagia COMPARISON: None available. TECHNIQUE: Routine barium swallow was performed with thick barium and solids and crackers coated barium in upright view and thin barium in prone lying position. FINDINGS: Following oral administration of thick barium and solids and cracker there is normal propagation bolus from the oral cavity through the pharynx, esophagus into stomach without any evidence of obstruction, narrowing or stricture. No laryngeal penetration or aspiration seen. No extrinsic compression noted. There is normal but slow transit of solid food through the esophagus into the stomach. On placing patient in supine and prone lying an oral administration no gastroesophageal reflux or hiatal hernia seen. There is a normal propagation bolus from the oral cavity, esophagus into stomach. FLUOROSCOPY TIME: 1 minute 25 seconds DOSE AREA PRODUCT: 30.06 uGy-m2 (microgray-meter squared) FL/FL barium swallow IMPRESSION: Unremarkable barium swallow exam. Electronically signed by: Billy Garcia MD 10/15/2024 03:27 PM EDT
== END 2024-10-15 08:41 | disposition home or self-care (01) ==
LOC: HO.XRAY 08:40
PROVIDERS: PCP Internal Medicine; Visit Provider Internal Medicine
DX: R13.10 Dysphagia, unspecified (principal)
CPT/HCPCS: 74220

== ENCOUNTER → 2024-10-15 08:42 | Outpatient (BNV) | payer OTHER, SELFPAY | PROVIDERS: PCP Internal Medicine; Visit Provider Radiology Diagnostic Radiology | DX: R13.10 Dysphagia, unspecified (principal) | CPT/HCPCS: 74220 ==

== ENCOUNTER 2024-10-29 08:12 | Outpatient (AMB) | payer OTHER, SELFPAY ==
--- OUTSIDE RECORDS SUMMARY | 2024-10-29 08:25 | XMS_ITS | Clinical Summary ---
Author Organization [facility] Address [address] [place] [address] Phone Care Team Providers Care Hatch Tender Name Role Phone Gigi Barrow MD Primary Care Provider [phone] Allergies Active Allergy Reactions Criticality Noted Date [...] GI. We requested her US results from [facility], but they will not fax for 48 [...] EDT Office Visit Obstetrics & Gynecology - [address] [id number] Graciela Rodriguez, CNM [address] [place] [address] Health Maintenance Due Date Last Done Comments [...] * Cervical Cancer Screening: HPV (10/21/2023) Pathologist [facility] Cervical Cancer Screening: HPV Negative,A bstracted [facility] Provider HEALTH MAINTENANCE Final Result * Hepatitis C Screening (10/21/2023) [facility] Hepatitis C Screening Abstracted [facility] Provider HEALTH MAINTENANCE Final Result * Lipid panel (02/26/2012) [facility] LDL/HDL Ratio 0 Comment:no interpetation,Abs tracted Triglycerides 0 mg/dL Comment:no interpetation,Abs tracted Cholesterol 0 mg/dL Comment:no interpetation,Abs tracted HDL 0 mg/dL Comment:no interpetation,Abs tracted LDL Cholesterol 0 mg/dL Comment:no interpetation,Abs tracted Blood Venous blood specimen / Unknown [facility] Provider LAB BLOOD ORDERABLES Joy l Result * Colonoscopy (04/26/2011) Pathologist [facility] Colonoscopy no interpreta tion,Abstr acted Anatomical Region Laterality Modality Other [facility] Provider HEALTH MAINTENANCE Final Result from Last 3 Months or Most Recently Relevant to Health Maintenance Insurance [facility] Care Teams Hatch Tender Relationship Specialty Start Date End Date Gigi Barrow MD [address] [place] [address] [address] [facility] [place] [address] PCP - General Internal Medicine 02/20/16
--- NOTE | 2024-10-29 08:26 | MHC.PC.OV ---
Vital Signs 10/29/24 08:28 Height 5 ft 5 in Weight 156 lb 2 oz BMI 26.0 BP 120/68 Blood Pressure Location Lt brachial Position Sitting Pulse 66 Pulse Source Pulse Oximeter Temp 97.8 F Temp Source Temporal Artery Scan Pulse Oximetry (%) 99 Oxygen Delivery Method Room Air Intake Visit Reasons: post nasal drip, dysphagia Intake Note: Patient is here to follow up on post nasal, dysphagia. Cancer Registry Coordinator Required: No Welfare Adviser: Not Required per policy Accompanied by: Self / Same As Patient Allergies latex [Latex] Allergy (Mild, Verified 10/29/24 08:28) SWELLING/ITCHING Sulfa (Sulfonamide Antibiotics) Allergy (Mild, Verified 10/29/24 08:28) SWELLING/ITCHING, pruritis sulfamethoxazole [From BACTRIM] Allergy (Unknown, Verified 10/29/24 08:28) ITCHY/HIVES trimethoprim [From BACTRIM] Allergy (Unknown, Verified 10/29/24 08:28) ITCHY/HIVES metoclopramide [From REGLAN] Adverse Reaction (Unknown, Verified 10/29/24 08:28) AGITATION Tobacco use date assessed: 10/29/24 Dental Screening Dental Screen Date: 07/29/24 [facility] Medical History Cough Dizziness Migraine Tubular adenoma of colon Calcium oxalate crystals in urine Varicose veins of legs Heart palpitations Multiple pigmented nevi Mild carpal tunnel syndrome of right wrist Annual physical exam Chronic idiopathic constipation Tachycardia Shoulder pain, bilateral Upper abdominal pain Pre-op examination SOB (shortness of breath) Mass of left upper extremity Left arm swelling Laceration of left hand Lightheadedness Otitis media Otitis externa Bilateral hand numbness Upper respiratory infection Low back pain Breast cancer screening by mammogram Thyroid nodule Oropharyngeal dysphagia UTI (urinary tract infection) Right kidney stone COVID-19 Chest pain Delayed gastric emptying Daytime sleepiness Snoring Migraine Vertigo Cervicalgia Unspecified Eustachian tube disorder, left ear Acute pharyngitis Urgency of micturition Abdominal pain Dysuria Diarrhea Hematuria Acute conjunctivitis of left eye Wound of right leg Abdominal cramping Allergic conjunctivitis Nephrolithiasis Colitis Interstitial cystitis Chronic cough COVID-19 long hauler COVID-19 Elevated lipase Pain in both knees Vaginal itching Suprapubic pain Vaginal spotting Hematuria Frequency of micturition Myalgia Post-vaccination reaction Palpitations Bilateral lower extremity pain Hearing deficit Frequency of micturition Toe swelling Toe pain, right Vitamin B12 deficiency Scalp cyst Vitamin D deficiency GERD (gastroesophageal reflux disease) Multiple thyroid nodules Lateral meniscal tear Restrictive lung disease Benign hematuria Hemorrhoids Irritable bowel syndrome Cervical disc herniation Impaired glucose tolerance Hypercholesterolemia Erosive esophagitis Surgical History Hx of colonoscopy H/O esophagogastroduodenoscopy S/P excision of lipoma Hx of tubal ligation History of lumpectomy of left breast Family History Father Skin cancer Mother Skin cancer High blood pressure Heart problem Maternal Grandfather Skin cancer Cancer FH: prostate cancer Brother Schizophrenia Other CVA (cerebral vascular accident) Mental health problem Social History Household Members: None Housing: Apartment Alcohol intake: never Patient Tobacco Use Status: Former Tobacco user Tobacco use type: Cigarette Years Smoked: quit 2008 e-Cigarette/Vaping Use: Never Used Second Hand Smoke Exposure: Yes service: No Current occupational status: employed Current occupation: [employer] L[employer] Current occupational exposures/hazards: No Cognitive needs: No Hearing needs: No Vision needs: No Questionnaire Thrive Questionnaire Date Thrive assessed: 07/29/24 PACO-7 AMB Questionnaire PACO-7 Date PACO - 7 assessed: 07/29/24 Source: Developed by Drs. Bill Morris, Chiquis Webster, Duke Madera and colleagues, with an educational claudia from [employer]. Physical exam (Primary Care) Vital Signs: Last Vital Signs Temp 97.8 F 10/29/24 08:28 Pulse 66 10/29/24 08:28 BP 120/68 10/29/24 08:28 Pulse Ox 99 10/29/24 08:28 Oxygen Delivery Method Room Air 10/29/24 08:28 BMI result Body Mass Index 26.0 Tobacco/Smoking Status: Tobacco use Status Tobacco use date assessed 10/29/24 10/29/24 08:30 Patient Tobacco Use Status Former Tobacco user 10/29/24 08:30 Tobacco use type Cigarette 10/29/24 08:30 e-Cigarette/Vaping Use Never Used 10/29/24 08:30 Thrive Assessment: Date of Thrive Assessment Date Thrive assessed 07/29/24 10/29/24 08:30 Const General: alert; No acute distress Eyes Conjunctivae: conjunctivae normal Resp Auscultation: clear to auscultation bilaterally Cardio Rate: regular rate Rhythm: regular rhythm GI Inspection: Yes normal to inspection Extrem General: Yes normal to inspection and No edema Coding Level of Care Code Est Pt Level 4 (15274) Diagnoses Erosive esophagitis K22.10 Impaired glucose tolerance R73.02 Generalized anxiety disorder F41.1 Interstitial cystitis (chronic) with hematuria N30.11 Hypercholesterolemia E78.00 Assessment & Plan Assessment & Plan (1) Erosive esophagitis: Comment: 02/2024 scope= well healed normal ; EGD and colon December 2018 , May 2019 5 years Code(s): K22.10 - Ulcer of esophagus without bleeding Category: Medical Plan: Avoid the foods that causes that usually spicy foods, tomato products, juices, coffee, soda and foods that your sensitive to. After eating do not lie down, allow 3-4 hours before in lie down. And keep the head of bed above 30 degrees to avoid the acid from going up. On pantoprazole (2) Impaired glucose tolerance: Code(s): R73.02 - Impaired glucose tolerance (oral) Category: Medical Plan: Decrease the amount of carbohydrate intake, pasta, bread, rice and potatoes are all sugar and that is aside from all the sweet stuff, remember that fruits are good but they are Sweet also. (3) Generalized anxiety disorder: Comment: [facility] Code(s): F41.1 - Generalized anxiety disorder Category: Medical Plan: Continue with lorazepam as needed for now (4) Interstitial cystitis (chronic) with hematuria: Code(s): N30.11 - Interstitial cystitis (chronic) with hematuria Category: Medical Plan: Patient is followed up by Urology (5) Hypercholesterolemia: Code(s): E78.00 - Pure hypercholesterolemia, unspecified Category: Medical Plan: Avoid fried foods, chicken skin, eggs, butter margarine, pastries and meat. Be it pork or beef they have a lot of cholesterol LDL goal of less than 130 and triglyceride of less than 150. On atorvastatin 20 mg once a day Plan History of Present Illness The patient is a 53-year-old female presenting with a follow-up for multiple chronic conditions. Her medical history includes being overweight, with a recent minor weight loss reported. She has a history of migraine headaches, interstitial cystitis, generalized anxiety disorder, GERD, and irritable bowel syndrome. The patient has impaired glucose tolerance, with recent blood tests indicating her blood sugar levels are mildly elevated but still within borderline ranges. Cholesterol levels are high, with an LDL concentration of 148 and elevated triglycerides at 209, though HDL is elevated as well. Her history of thyroid nodules was last evaluated via ultrasound in February 2024. The patient has reported dysphagia but a barium swallow conducted on October 15 revealed no significant findings. Her current medications include atorvastatin 20 mg daily for hypercholesterolemia, fenofibrate, pantoprazole for erosive esophagitis, and lorazepam as needed for anxiety management. The patient is diligent about her screenings, her last mammogram was in July 2024, and a colonoscopy was performed in March 2024. She has been managing her diet to maintain glucose levels and occasionally exercises with her daughter. Health Maintenance - Mammogram up to date as of July 2024. - Colonoscopy performed in March 2024. - Blood work as of September 01, 2024, with normal blood count, electrolytes, and renal function. Social History - Employment returned recently, impacting physical activity levels. - Occasional exercise, recently attended a gym session with a family member. - Regular mormon activities, attending prayer meetings and other mormon events. - Monitoring dietary intake to reduce carbohydrates and sugar. Review of Systems - Respiratory: Reports occasional shortness of breath when walking. - Ears, Nose, Mouth, Throat: Denies wheezing, reports occasional dysphagia attributed to saliva or allergies. Physical Exam Results - Labs: Normal blood count, normal electrolytes, normal renal function, mildly elevated blood glucose, high cholesterol with LDL of 148, triglycerides at 209, and HDL elevated at 58. - Tests: Barium swallow on October 15 showed unremarkable findings. Plan 1. Pantoprazole is prescribed for erosive esophagitis, and lorazepam is used as needed for anxiety management. The patient is advised to continue monitoring for dysphagia and to consider improving her exercise routine, balancing it with her work commitments. Dietary advice includes mitigating carbohydrates and sugars to control blood sugar levels. Regular follow-ups with primary care are necessary, and lung function testing is encouraged to investigate respiratory symptoms. Health screenings, including mammograms and colonoscopies, remain essential.: Patient was informed and verbally consented to the use of an ambient scribe for clinic note documentation during this visit. Discussion Notes During the consultation, I reviewed the patient's multiple chronic conditions and the importance of maintaining a healthy lifestyle to manage these effectively. We discussed the treatment regimens for hypercholesterolemia, erosive esophagitis, and anxiety disorder, emphasizing medication adherence and lifestyle adjustments. I provided guidance on blood sugar management, highlighting the significance of dietary control and regular screening for early detection of any new issues. We agreed on the necessity of further lung function testing to explore her respiratory symptoms. I advised on the continuation of regular preventive screenings, aligning with her already established plan for mammograms and colonoscopies. The discussion underscored the necessity of integrating physical activity into her daily routine, even with time constraints, and reviewed potential strategies for achieving this. Patient Instructions - Continue atorvastatin 20 mg daily as prescribed. - Take pantoprazole as instructed for your reflux. - Use lorazepam as needed for anxiety. - Monitor your glucose levels and watch your carbohydrate and sugar intake. - Stay physically active; aim for short daily exercises. - Schedule and undergo lung function testing. - Maintain regular health screenings, such as mammograms and colonoscopies, as advised. - Ensure a balanced diet and monitor for any changes in your swallowing.
[2024-10-29 08:28] VITALS: BP 120/68; PULSE 66; TEMP 36.6; O2SAT 99; BMI 26.0
== END 2024-10-29 09:01 | disposition home or self-care (01) ==
LOC: HO.HMCH 08:13
PROVIDERS: PCP Internal Medicine; Visit Provider Internal Medicine
DX: K22.10 Ulcer of esophagus without bleeding (principal); R73.02 Impaired glucose tolerance (oral); F41.1 Generalized anxiety disorder; N30.11 Interstitial cystitis (chronic) with hematuria; E78.00 Pure hypercholesterolemia, unspecified

== ENCOUNTER → 2024-10-29 08:12 | Outpatient (BNVA) | payer OTHER, SELFPAY | PROVIDERS: PCP Internal Medicine; Visit Provider Internal Medicine | DX: K22.10 Ulcer of esophagus without bleeding (principal); R73.02 Impaired glucose tolerance (oral); F41.1 Generalized anxiety disorder; N30.11 Interstitial cystitis (chronic) with hematuria; E78.00 Pure hypercholesterolemia, unspecified | CPT/HCPCS: 99212 ==

== ENCOUNTER 2024-11-16 12:45 | Outpatient (AMB) | payer OTHER, SELFPAY ==
[2024-11-16 12:53] VITALS: BP 114/76; PULSE 71; O2SAT 96; BMI 26.5
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
--- OUTSIDE RECORDS SUMMARY | 2024-11-16 15:08 | XMS_ITS | Clinical Summary ---
Author Organization [facility] Address [address] [place] [address] Phone Care Team Providers Care Logging Superintendent Name Role Phone Gigi Barrow MD Primary Care Provider [phone] Allergies Active Allergy Reactions Criticality Noted Date [...] , VITAMIN D3, ORAL Take by mouth. Activ e pantoprazole (PROTONIX) 40 mg EC tablet Take 40 mg by mouth daily. Active Ventolin HFA 90 mcg/actuation inhaler INHALE 1 PUFF 4 TIMES A DAY NEEDED FOR SHORTNESS OF BREATH OR WHEEZING 5 Active atorvastatin (LIPITOR) 20 mg tablet Take 1 tablet (20 mg total) by mouth 1 (one) time each day. 5 Active baclofen (LIORESAL) 5 mg tablet Take 1 tablet (5 mg total) by mouth at bedtime. 5 Active cefuroxime (CEFTIN) 500 mg tablet Take 1 tablet (500 mg total) by mouth every 12 (twelve) hours. 4 Active cetirizine (ZyrTEC) 10 mg tablet Take 1 tablet (10 mg total) by mouth 1 (one) time each day. 5 Active cyclobenzaprine (FLEXERIL) 5 mg tablet Take 1 tablet (5 mg total) by mouth at bedtime. 5 Active fenofibrate (LOFIBRA) 160 mg tablet Take 1 tablet (160 mg total) by mouth 1 (one) time each day. 5 Active loratadine (CLARITIN) 10 mg tablet Take 1 tablet (10 mg total) by mouth 1 (one) time each day. 4 Active magnesium oxide (MAG-OX) 400 mg (241.3 elemental magnesium) tablet Take 1 tablet (400 mg total) by mouth 1 (one) time each day. 5 Active meclizine (ANTIVERT) 25 mg tablet TAKE 1 TABLET BY MOUTH 2 TIMES A DAY NEEDED FOR DIZZINESS 4 Active Active Problems Problem Noted Date Diagnosed Date Pelvic pain 10/19/2020 Overview (08/13/2024): Last Assessment & Plan: No evidence of acute abdomen. I encouraged her to keep her follow up appts with urology and GI. We [place] [facility] [place] they will not fax for 48 hours from imaging unless patient goes there to request it. She plans to go today. I explained I will call her if I get the results today, otherwise Dr. Henry will call her next week as he is the ordering provider. She agreed. Hypercholesteremia 04/26/2011 Interstitial cystitis 04/26/2011 Irritable bowel syndrome 04/26/2011 Encounters Date Type Department Care Team Description 11/10/2024 3:30 PM EDT Office Visit Obstetrics & Gynecology - [address] [address] Graciela Rodriguez CNM Encounter for well woman exam with routine gynecological exam (Primary Dx); Screening breast examination; Menopause from Last 3 Months Immunizations Name Administration Dates Next Due Influenza Quadrivalent, 0.5m l, preservative free (Fluarix; FluLaval; Fluzone) ages 6mo and older (Afluria) 3yo and older 05/12/2023,05/06/2022,05/22/2021,2019,04/22/2018,05/13/2016,04/27/2015 Influenza Quadrivalent, with preservative (Fluzone; Afluria) 6mo and older 05/06/2019,06/09/2017 Influenza trivalent, 0.5mL, preservative free (Fluarix; FluLaval; Fluzone) ages 6mo and older (Afluria) 3 years and older 05/31/2024 Td Tetanus diptheria (Tdvax) 7yo and older 03/01/2024 Tdap Tetanus diptheria acell ular pertussis (Boostrix; Adacel) 7yo and older 11/29/2015 Zoster recombinant (Shingrix ) 19yo and older 04/03/2023,10/24/2022 Surgical History Surgery Date Site/Laterality Comments TUBAL [...] Family History Medical History Relation Name Comments Cancer Father Colon cancer Maternal Grandfather unsure but thinks colon Hypertension Mother No Known Problems Sister 1 No Known Problems Sister 2 Breast cancer Neg Hx Ovarian cancer Neg Hx Pancreatic cancer Neg Hx Prostate cancer Neg Hx Uterine cancer Neg Hx Relation Name Status Comments Brother x4 Alive Father Alive Half-Sister dad side Alive Maternal Grandfather Mother Alive Sister 1 Alive Sister 2 Alive Social History Tobacco Use Types Packs/Day Years Used Date Smoking Tobacco: Former Cigarettes Q uit: 09/26/2007 Smokeless Tobacco: Never Alcohol Use Standard Drinks/Week Comments No 0 (1 standard drink = 0.6 oz pur e alcohol) Comments No Sex and Gender Information Value Date Recorded Sex Assigned at Not on file Legal Sex Female 5:42 PM EST Gender Identity Not on file Sexual Orientation Not on file 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 file Not on file Not on file Obstetrics History Para Term AB IAB SAB Ectopic Multiple Livin g Live Births 3 2 2 1 2 2 Date Outcome GA Total Labor Labor/2nd/3rd Weight Sex Type Anes PTL Su A1 A5 Name Clin AB 1988 Term M Vag-S pont Living 1993 Term F Vag-S pont Living Last Filed Vital Signs Vital Sign Reading Time Taken Comments Blood Pressure 104/73 11/10/2024 3:34 PM EDT Pulse 70 11/10/2024 3:34 PM EDT Temperature - - Respiratory Rate - - Oxygen Saturation - - Inhaled Oxygen Concentration - - Weight 74.4 kg (164 lb 1.6 oz) 11/10/2024 3:34 P M EDT Height 165.1 cm (5' 5 ) 11/10/2024 3:34 PM EDT Body Mass Index 27.31 11/10/2024 3:34 PM EDT Plan of Treatment Health Maintenance Due Date Last Done Comments Hepatitis B Vaccines (1 of 3 - 19+ 3-dose series) 1988 Pneumococcal Vaccine: 50+ Years (1 of 1 - PCV) 12/09/2019 Cholesterol Screening (Lipid Panel) 07/06/2022 02/26/2012 Colorectal Cancer Screening: Colonoscopy 07/06/2022 04/26/2011 Depression Screening 07/06/2022 HIV Screening 07/06/2022 Social Influencers of Health Screening 07/06/2022 COVID-19 Vaccine ( season) 2024 12/13/2020, 11/15/2020 Breast Cancer Screening 08/25/2026 08/25/2024 Cervical Cancer Screening: HPV 10/20/2028 10/21/2023 DTaP,Tdap,and Td Vaccines (3 - Td or Tdap) 03/01/2034 03/01/2024, 11/29/2015 Zoster Vaccines Completed 04/03/2023, 10/24/2022 Hepatitis C Screening Completed 10/21/2023 Influenza Vaccine Completed 05/31/2024, , 05/06/2022, Additional history exists HIB Vaccines Aged Out No longer eligi [...] age to complete this topic Meningococcal B Vaccine Aged Out No l onger eligible based on patient's age to complete this topic Pneumococcal Vaccine: Pediatrics (0 to 5 Years) and At-Risk Patients (6 to 64 Years) Aged Out No longer eligible based on patient's age to complete this topic RSV Immunization Patients Under 20 months Aged Out No longer eligible based on patient's age to complete this topic Varicella Vaccines Aged Out No longer eligible based on patient's age to complete this topic Procedures Procedure Name Priority Date/Time Associated Diagnosis Comments MG MAMMO DIGITAL DIAGNOSTIC BILAT Routine 08/25/2024 3:11 PM EST HPV Routine 10/21/2023 HEPATITIS C SCREENING Routine 10/21/2023 LIPID PANEL Routine 02/26/2012 COLONOSCOPY Routine 04/26/2011 from Last 3 Months or Most Recently Relevant to Health Maintenance Results * MG Mammo Digital Diagnostic bilat (08/25/2024 3:11 PM EST) Anatomical Region Laterality Modality Breast Bilateral Mammography Historical Provider IMG BI PROCEDURES Final R esult * Cervical Cancer Screening: HPV (10/21/2023) Pathologist [facility] Cervical Cancer Screening: HPV Negative,A bstracted Historical Provider HEALTH MAINTENANCE Final Result * Hepatitis C Screening (10/21/2023) Pathologist [facility] Hepatitis C Screening Abstracted Historical Provider HEALTH MAINTENANCE Final Result * Lipid panel (02/26/2012) LDL/HDL Ratio 0 Comment:no interpetation,Abs tracted Triglycerides 0 mg/dL Comment:no interpetation,Abs tracted Cholesterol 0 mg/dL Comment:no interpetation,Abs tracted HDL 0 mg/dL Comment:no interpetation,Abs tracted LDL Cholesterol 0 mg/dL Comment:no interpetation,Abs tracted Blood Venous blood specimen / Unknown us Historical Provider LAB BLOOD ORDERABLES Joy l Result * Colonoscopy (04/26/2011) HM Colonoscopy no interpreta tion,Abstr acted Anatomical Region Laterality Modality Other Historical Provider HEALTH MAINTENANCE Final Result from Last 3 Months or Most Recently Relevant to Health Maintenance Insurance [facility] [employer] Care Teams Logging Superintendent Relationship Specialty Start Date End Date Gigi Barrow MD [address] [place] [address] [address] [facility] [place] [address] PCP - General Internal Medicine 02/20/16
== END 2024-11-16 13:44 | disposition home or self-care (01) ==
LOC: HO.HSMS 12:45
PROVIDERS: PCP Internal Medicine; Visit Provider Physician Assistant Medical
DX: M54.2 Cervicalgia (principal); R42 Dizziness and giddiness; G43.719 Chronic migraine without aura, intractable, without status migrainosus; R40.0 Somnolence; R06.83 Snoring; M47.812 Spondylosis without myelopathy or radiculopathy, cervical region; M79.2 Neuralgia and neuritis, unspecified; E55.9 Vitamin D deficiency, unspecified; F41.1 Generalized anxiety disorder; M54.16 Radiculopathy, lumbar region
CPT/HCPCS: 99214

== ENCOUNTER → 2024-11-16 12:45 | Outpatient (BNVA) | payer OTHER, SELFPAY | PROVIDERS: PCP Internal Medicine; Visit Provider Physician Assistant Medical | DX: G43.719 Chronic migraine without aura, intractable, without status migrainosus (principal); M54.2 Cervicalgia; M47.812 Spondylosis without myelopathy or radiculopathy, cervical region; M79.2 Neuralgia and neuritis, unspecified; M54.16 Radiculopathy, lumbar region; R42 Dizziness and giddiness; R40.0 Somnolence; R06.83 Snoring; E55.9 Vitamin D deficiency, unspecified; F41.1 Generalized anxiety disorder | CPT/HCPCS: 99212 ==

== ENCOUNTER 2024-11-26 12:55 | Outpatient (AMB) | payer OTHER, SELFPAY ==
[2024-11-26 12:58] VITALS: BP 105/55; PULSE 85; O2SAT 97
--- NOTE | 2024-11-26 12:58 | A.OFFVIS_ITS ---
Vital Signs 11/26/24 12:58 Weight 156 lb 15.506 oz BP 105/55 L Blood Pressure Location Lt brachial Position Sitting Pulse 85 Pulse Source Pulse Oximeter Pulse Oximetry (%) 97 Oxygen Delivery Method Room Air Intake Visit Reasons: Follow up 7 months Intake Note: Patient follow up for Erosive esophagitis Patient cc: Allergies latex [Latex] Allergy (Mild, Verified 11/26/24 13:09) SWELLING/ITCHING Sulfa (Sulfonamide Antibiotics) Allergy (Mild, Verified 11/26/24 13:09) SWELLING/ITCHING, pruritis sulfamethoxazole [From BACTRIM] Allergy (Unknown, Verified 11/26/24 13:09) ITCHY/HIVES trimethoprim [From BACTRIM] Allergy (Unknown, Verified 11/26/24 13:09) ITCHY/HIVES metoclopramide [From REGLAN] Adverse Reaction (Unknown, Verified 11/26/24 13:09) AGITATION HPI HPI Follow up 7 months: Details: Assessment & Plan (1) Erosive esophagitis: Comment: 02/2024 scope= well healed normal ; EGD and colon December 2018 , May 2019 5 years Code(s): K22.10 - Ulcer of esophagus without bleeding Category: Medical (2) GERD (gastroesophageal reflux disease): Code(s): K21.9 - Gastro-esophageal reflux disease without esophagitis Category: Medical Qualifiers: Esophagitis presence: without esophagitis Qualified Code(s): K21.9 - Gastro-esophageal reflux disease without esophagitis (3) Irritable bowel syndrome with constipation: Code(s): K58.1 - Irritable bowel syndrome with constipation Category: Medical Plan She is doing well on her qod pantoprazole. She has had some cramping and CIC, but will be going on a detox tea soon which has soon solve the problems. She is agreeable to a 10 year followup. The procedure was well tolerated. The results were explained and the patient is agreeable to the follow-up interval as stated. The bowel pattern has returned to normal. Education was provided to tell any 1st degree relatives about their findings to be sure that they are screened by age 45. Educated that they will be put on a recall list when it is time for their repeat scope but should they move out of state or away from the hospital they will need to remember along with their primary to repeat the procedure in a timely fashion to avoid any adverse complications. She asks for education of diverticulosis versus diverticulitis. Apparently she has a relative who had diverticulitis and was telling her she could not eat many foods. I tell her this is not true since she has never had a problem with infection she has no need to change her diet she simply needs to control her constipation. ROV 6 mos. Medications: Refilled pantoprazole 40 mg PO DAILY 90 tabs 2RF K21.9 - Gastro-esophageal reflux disease without esophagitis ? TODAY'S VISIT She continues to do well on her pantoprazole. Her bowels have been very stable since she started eating bread with flax seeds and a lot of fiber. She is also using olive and oregano infusion to calm her bowels. She is worried about her low BP, but admits she has not been drinking enough water. She does not avoid salt. She is c/o rectal spasm intermittently, trial of bentyl. She is also taking tumeric and anushka which could be c/t some bowel irritability. ROV 6 mos. [facility] Medical History (Updated 11/26/24 @ 13:03 by JOEL Gonzalez) Post-nasal drip Cough Cervicalgia Vertigo Sprain of left medial ankle joint Hordeolum external Dizziness Migraine Tubular adenoma of colon Calcium oxalate crystals in urine Varicose veins of legs Heart palpitations Multiple pigmented nevi Mild carpal tunnel syndrome of right wrist Annual physical exam Chronic idiopathic constipation Tachycardia Shoulder pain, bilateral Upper abdominal pain Pre-op examination SOB (shortness of breath) Mass of left upper extremity Left arm swelling Laceration of left hand Lightheadedness Otitis media Otitis externa Bilateral hand numbness Upper respiratory infection Low back pain Breast cancer screening by mammogram Thyroid nodule Oropharyngeal dysphagia UTI (urinary tract infection) Right kidney stone COVID-19 Chest pain Delayed gastric emptying Daytime sleepiness Snoring Migraine Unspecified Eustachian tube disorder, left ear Acute pharyngitis Urgency of micturition Abdominal pain Dysuria Diarrhea Hematuria Acute conjunctivitis of left eye Wound of right leg Abdominal cramping Allergic conjunctivitis Nephrolithiasis Colitis Interstitial cystitis Chronic cough COVID-19 long hauler COVID-19 Elevated lipase Pain in both knees Vaginal itching Suprapubic pain Vaginal spotting Hematuria Frequency of micturition Myalgia Post-vaccination reaction Palpitations Bilateral lower extremity pain Hearing deficit Frequency of micturition Toe swelling Toe pain, right Vitamin B12 deficiency Scalp cyst Vitamin D deficiency GERD (gastroesophageal reflux disease) Multiple thyroid nodules Lateral meniscal tear Restrictive lung disease Benign hematuria Hemorrhoids Irritable bowel syndrome Cervical disc herniation Impaired glucose tolerance Hypercholesterolemia Erosive esophagitis Surgical History Hx of colonoscopy H/O esophagogastroduodenoscopy S/P excision of lipoma Hx of tubal ligation History of lumpectomy of left breast Family History Father Skin cancer Mother Skin cancer High blood pressure Heart problem Maternal Grandfather Skin cancer Cancer FH: prostate cancer Brother Schizophrenia Other CVA (cerebral vascular accident) Mental health problem Social History Household Members: None Housing: Apartment Alcohol intake: never Patient Tobacco Use Status: Former Tobacco user Tobacco use type: Cigarette Years Smoked: quit 2007 e-Cigarette/Vaping Use: Never Used Second Hand Smoke Exposure: Yes service: No Current occupational status: employed 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 Current occupational exposures/hazards: No Cognitive needs: No Hearing needs: No Vision needs: No Review of Systems Const Denies fatigue, Denies fever(s), Denies night sweats, Denies poor appetite and Denies weight loss ENT Reports Normal hearing present, Denies dental pain, Denies dysphagia, Denies hearing loss, Denies mouth pain, Denies odynophagia, Denies throat swelling, Denies tongue swelling and Reports other (Dentition adequate) Card Reports no additional complaints Resp Reports no additional complaints GI Details: Denies abdominal pain, Denies melena, Denies bloating, Denies hematochezia, Denies constipation, Reports GI cramping, Denies dysphagia, Denies excessive flatus, Denies early satiety, Reports heartburn, Denies diarrhea, Denies nausea, Denies odynophagia, Denies vomiting and Denies hematemesis Skin/Breast Denies pruritus, Denies lesions, Denies rash and Denies jaundice Neuro Reports Normal hearing present and Denies Abnormal speech present Endo Denies fatigue Aller/Immun Denies throat swelling and Denies tongue swelling Physical Exam Vital Signs: Last Vital Signs Pulse 85 11/26/24 12:58 BP 105/55 L 11/26/24 12:58 Pulse Ox 97 11/26/24 12:58 Oxygen Delivery Method Room Air 11/26/24 12:58 Const General: cooperative, no acute distress, well developed and well groomed Nutritional Appearance: average body habitus and well nourished Orientation/consciousness: oriented to person, oriented to place and oriented to time Limitations: No language barrier HEENT Head: Yes normocephalic and Yes atraumatic Eyes General: appearance normal, both eyes and all related structures Pupils: Equal, round and reactive pupils present Neck Neck: Yes normal visual inspection and Yes no lymphadenopathy Thyroid: Thyroid normal Resp Effort & Inspection: normal respiratory effort and able to speak in complete sentences Auscultation: clear to auscultation bilaterally Cardio Rate: regular rate Rhythm: regular rhythm Heart sounds: Normal, physiologic split S2 sound present Peripheral pulses: radial pulses present and posterior tibial pulses present GI Inspection: No distended and No Abdominal panniculus present Palpation (GI): Soft to palpation, nontender, no guarding, not rigid and No hepatosplenomegaly present Percussion: Yes normal to percussion Auscultation: normal bowel sounds Rectal Exam - Female: deferred Skin General skin exam: no rashes or lesions noted, turgor normal, skin not dry, no jaundice, No spider nevi and no striae Rashes: no rashes Nails: normal Neuro General: oriented to person, oriented to place and oriented to time Cranial nerves: Yes Equal, round and reactive pupils present and Yes Normal hearing present Speech: No Abnormal speech present Extrem General: Yes normal to inspection, No clubbing, No cyanosis and No edema Psych Appearance: grossly normal and well kempt Mental Status: mental status grossly normal Speech and movement: Normal speech and movement present Affect: normal affect Attitude: cooperative Thought process: Normal thought process present and not confabulating Thought content: Normal thought content present Insight: Fair insight present (Psych) Judgement: Fair judgement present (Psych) Assessment & Plan Assessment & Plan (1) GERD (gastroesophageal reflux disease): Code(s): K21.9 - Gastro-esophageal reflux disease without esophagitis Category: Medical Qualifiers: Esophagitis presence: without esophagitis Qualified Code(s): K21.9 - Gastro-esophageal reflux disease without esophagitis (2) Erosive esophagitis: Comment: 02/2024 scope= well healed normal ; EGD and colon December 2018 , May 2019 5 years Code(s): K22.10 - Ulcer of esophagus without bleeding Category: Medical (3) Irritable bowel syndrome with constipation: Code(s): K58.1 - Irritable bowel syndrome with constipation Category: Medical Plan She continues to do well on her pantoprazole. Her bowels have been very stable since she started eating bread with flax seeds and a lot of fiber. She is also using olive and oregano infusion to calm her bowels. She is worried about her low BP, but admits she has not been drinking enough water. She does not avoid salt. She is c/o rectal spasm intermittently, trial of bentyl. She is also taking tumeric and anushka which could be c/t some bowel irritability. ROV 6 mos. Medications: New dicyclomine 20 mg PO QID PRN 120 tabs 1RF abdominal pain 30 days Refilled pantoprazole 40 mg PO DAILY 90 tabs 2RF K21.9 - Gastro-esophageal reflux disease without esophagitis Coding Level of Care Code Est Pt Level 3 (06407) Diagnoses Gastroesophageal reflux disease without esophagitis K21.9 Esophagitis presence: without esophagitis Erosive esophagitis K22.10 Irritable bowel syndrome with constipation K58.1
--- OUTSIDE RECORDS SUMMARY | 2024-11-26 13:18 | XMS_ITS | Clinical Summary ---
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 on file Not on file Not [...] * Cervical Cancer Screening: HPV (10/21/2023) Pathologist [facility] Cervical Cancer Screening: HPV Negative,A bstracted Historical Provider HEALTH MAINTENANCE Final Result * Hepatitis C Screening (10/21/2023) Pathologist [facility] Hepatitis C Screening Abstracted Historical Provider HEALTH [...] Most Recently Relevant to Health Maintenance Insurance [facility] [employer] [place] [address] Care Teams Heatset Winder Operator Relationship Specialty Start Date End Date Gigi Barrow MD [address] [place] [address] [address] [facility] [place] [address] PCP - General Internal Medicine 02/20/16
== END 2024-11-26 13:41 | disposition home or self-care (01) ==
LOC: HO.HGI 12:57
PROVIDERS: PCP Internal Medicine; Visit Provider Nurse Practitioner
DX: K21.9 Gastro-esophageal reflux disease without esophagitis (principal); K22.10 Ulcer of esophagus without bleeding; K58.1 Irritable bowel syndrome with constipation
CPT/HCPCS: 99213

== ENCOUNTER → 2024-11-26 12:55 | Outpatient (BNVA) | payer OTHER, SELFPAY | PROVIDERS: PCP Internal Medicine; Visit Provider Nurse Practitioner | DX: K22.10 Ulcer of esophagus without bleeding (principal); K21.9 Gastro-esophageal reflux disease without esophagitis; K58.1 Irritable bowel syndrome with constipation | CPT/HCPCS: 99212 ==

== ENCOUNTER 2024-12-07 13:20 | Outpatient (REF) | payer OTHER, SELFPAY ==
[2024-12-07 14:07] LABS: Appearance Urine Clear; Color Urine Yellow; Glucose Urine UA Negative (Negative); Leukocyte Esterase Urine Trace (Negative); Nitrite Urine Negative (Negative); PH 6.5 (5.0-9.0); Specific Gravity - Urine 1.015 (1.005-1.025); UMIC TRIGGER UACC YES; Urine Blood Small (1+) (Negative); Urine Ketones Negative (Negative); Urine Protein Negative (Neg-Trace)
[2024-12-07 14:11] LABS: Bacteria Urine None Seen (None Seen); Hyaline Casts Urine 0-2 /LPF (0-2); Squamous Epithelial Cell Urine 0-2 /HPF (0-2); WBC Urine 0-5 /HPF (0-5)
--- OUTSIDE RECORDS SUMMARY | 2024-12-07 14:26 | XMS_ITS | Clinical Summary ---
Author Organization [facility] Address [address] [place] [address] Phone Care Team Providers Care Freight Receiver Name Role Phone Gigi Barrow MD Primary Care Provider [phone] Allergies Active Allergy Reactions Criticality Noted Date [...] GI. 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 PLAN Care Teams Freight Receiver Relationship Specialty Start Date End Date Gigi Barrow MD [address] [place] [address] [address] [facility] [place] [address] PCP - General Internal Medicine 02/20/16
== END 2024-12-07 13:21 | disposition home or self-care (01) ==
LOC: HO.LAB 13:20
PROVIDERS: PCP Internal Medicine; Visit Provider Internal Medicine
DX: R39.9 Unspecified symptoms and signs involving the genitourinary system (principal)
CPT/HCPCS: 81001; 81003

== ENCOUNTER 2025-01-03 06:55 | Outpatient (REF) | payer OTHER, SELFPAY ==
[2025-01-03 07:32] LABS: Estimated Average Glucose 117 mg/dL; Hemoglobin A1c % 5.7 % (<6.0); Total Hemoglobin (HGBA1C) 3646.9036 umol/L
[2025-01-03 07:32] LABS: Appearance Urine Clear; Color Urine Yellow; Glucose Urine UA Negative (Negative); Leukocyte Esterase Urine Negative (Negative); Nitrite Urine Negative (Negative); PH 5.5 (5.0-9.0); Specific Gravity - Urine 1.025 (1.005-1.025); UMIC TRIGGER UACC YES; Urine Blood Moderate (2+) (Negative); Urine Ketones Negative (Negative); Urine Protein Negative (Neg-Trace)
[2025-01-03 07:37] LABS: Bacteria Urine None Seen (None Seen); Hyaline Casts Urine 0-2 /LPF (0-2); WBC Urine 0-5 /HPF (0-5)
[2025-01-03 07:54] LABS: Alanine Aminotransferase 22 U/L (0-31); Albumin Level 4.3 g/dL (3.5-5.0); Alkaline Phosphatase 82 U/L (39-117); Anion Gap 9 (12-20); Aspartate Amino Transferase 22 U/L (5-31); Bilirubin Total 0.3 mg/dL (0.0-1.0); Blood Urea Nitrogen 19 mg/dL (9-16); Calcium 9.2 mg/dL (8.4-10.2); Carbon Dioxide 26 mmol/L (22-29); Chloride 110 mmol/L (96-108); Cholesterol 211 mg/dL (<200); Estimated Glomerular Filt Rate > 60; Glucose Random 103 mg/dL (60-115); HDL Cholesterol 57 mg/dL (>40); LDL Cholesterol Calculated 129 mg/dL (<100); Sodium 141 mmol/L (135-145); Total Protein 6.9 g/dL (6.5-8.0); Triglycerides 125 mg/dL (<150)
[2025-01-03 08:12] LABS: Free T4 (Free Thyroxine) 0.99 ng/dL (0.71-1.85); Thyroid Stimulating Hormone 1.94 uIU/mL (0.32-4.0); Vitamin D 25-OH Total 29.3 ng/mL (>30)
[2025-01-03 08:16] LABS: Folate 7.6 ng/mL (> or = 4.0); Vitamin B12 413 pg/mL (200-900)
== END 2025-01-03 06:56 | disposition home or self-care (01) ==
LOC: HO.LAB 06:55
PROVIDERS: PCP Internal Medicine; Visit Provider Internal Medicine
DX: R73.02 Impaired glucose tolerance (oral) (principal); E78.00 Pure hypercholesterolemia, unspecified
CPT/HCPCS: 36415; 80053; 80061; 81001; 82306; 82607; 82746; 83036; 84439; 84443

== ENCOUNTER 2025-01-03 13:09 | Emergency (ER) | payer OTHER, SELFPAY ==
--- NOTE | ~2025-01-03 | US_ITS ---
EXAMINATION: US PELVIS TRANSABDOMINAL AND TRANSVAGINAL HISTORY: pain COMPARISON: Comparison is made with the prior examination dated 10/18/2020. TECHNIQUE: Transabdominal and endovaginal real-time 2D myers-scale ultrasound was performed. FINDINGS: Uterus: The uterus is normal in size, measuring 25 x 3.6 x 3.9 cm. Myometrium has a normal echotexture. There is a right anterior fibroid measuring 7 mm in size. Endometrium: The endometrial stripe measures 8-12 mm in thickness and is markedly heterogeneous in appearance with multiple cystic spaces. Right ovary: The right ovary measures 2.0 x 1.2 x 1.5 cm. The right ovary is normal in size and echotexture. Left ovary: A hypoechoic structure in the left adnexa a represent the left ovary, measuring 1.8 x 2.0 x 1.4 cm. Pelvic fluid: none. US/US pelvic and transvaginal IMPRESSION: Thickened, markedly heterogeneous endometrium. Neoplasm is not excluded, and tissue sampling is recommended. Electronically signed by: Bill Viveros MD 01/03/2025 02:43 PM EDT
--- NOTE | 2025-01-03 13:12 | ED.GENADULT ---
HPI - General Adult General Chief complaint: Vaginal Bleeding Stated complaint: stomach pain Time Seen by Provider: 01/03/25 17:47 Source: patient Mode of arrival: ambulatory Limitations: no limitations History of Present Illness ED Provider: HPI narrative: Patient is 54 years old with abdominal pain for last few days also has spotting had similar episode 4 years ago was seen by four h agent endometrial biopsy was negative patient also does have history of anxiety and IBS taken dicyclomine Related Data Home Medications ?Medication ?Instructions ?Recorded ?Confirmed multivitamin 1 tab PO DAILY 11/16/20 09/09/24 Previous Rx's ?Medication ?Instructions ?Recorded blood pressure monitor (Blood #1 ea 04/18/22 Pressure Kit) cholecalciferol (vitamin D3) 50 50 mcg PO DAILY #90 tabs 01/09/23 mcg (2,000 unit) tablet ondansetron HCl 4 mg tablet 4 mg PO Q8H PRN nausea and 10/23/23 vomiting #20 tabs fenofibrate 160 mg tablet 160 mg PO DAILY #90 tabs 12/17/23 magnesium oxide 400 mg (241.3 mg 400 mg PO DAILY #90 tabs 12/18/23 magnesium) tablet Lactobacillus acidophilus 100 mg 100 mg PO DAILY #150 caps 02/04/24 (1 billion cell) capsule atorvastatin 20 mg tablet 20 mg PO DAILY #90 tabs 06/28/24 loratadine 10 mg tablet 10 mg PO DAILY #90 tabs 06/28/24 lorazepam 0.5 mg tablet (Ativan) 0.5 mg PO ONCE PRN MRI procedure 08/09/24 #1 tab baclofen 5 mg tablet 5 mg PO BEDTIME #90 tabs 09/01/24 benzonatate 200 mg capsule 200 mg PO BID-TID PRN cough #14 09/15/24 caps codeine 10 mg-guaifenesin 100 mg/5 5 ml PO Q6H PRN cough #120 mL 09/15/24 mL oral liquid fluticasone propionate 50 2 spray intranasal DAILY #16 grams 10/12/24 mcg/actuation nasal spray,suspension (Flonase Allergy Relief) albuterol sulfate 90 mcg/actuation 1 puff inhalation QID PRN for 11/16/24 aerosol inhaler (Ventolin HFA) wheezing #18 ea meclizine 25 mg tablet 25 mg PO BID PRN dizziness #30 tabs 11/17/24 pantoprazole 40 mg tablet,delayed 40 mg PO DAILY #90 tabs 11/26/24 release dicyclomine 20 mg tablet 20 mg PO QID PRN abdominal pain 90 12/24/24 days #120 tabs Allergies Allergy/AdvReac Type Severity Reaction Status Date / Time latex [Latex] Allergy Mild SWELLING/IT Verified 01/03/25 13:16 ROSSANA Sulfa (Sulfonamide Allergy Mild SWELLING/ITCHING, Verified 01/03/25 13:16 Antibiotics) pruritis sulfamethoxazole Allergy Unknown ITCHY/HIVES Verified 01/03/25 13:16 [From BACTRIM] trimethoprim [From BACTRIM] Allergy Unknown ITCHY/HIVES Verified 01/03/25 13:16 milk Allergy Stomach Verified 01/03/25 13:16 Upset metoclopramide [From REGLAN] AdvReac Unknown AGITATION Verified 01/03/25 13:16 Review of Systems Review of Systems: Yes all other systems are reviewed and are negative PMFSH Past Medical History Medical History Post-nasal drip Cough Cervicalgia Vertigo Sprain of left medial ankle joint Hordeolum external Dizziness Migraine Tubular adenoma of colon Calcium oxalate crystals in urine Varicose veins of legs Heart palpitations Multiple pigmented nevi Mild carpal tunnel syndrome of right wrist Annual physical exam Chronic idiopathic constipation Tachycardia Shoulder pain, bilateral Upper abdominal pain Pre-op examination SOB (shortness of breath) Mass of left upper extremity Left arm swelling Laceration of left hand Lightheadedness Otitis media Otitis externa Bilateral hand numbness Upper respiratory infection Low back pain Breast cancer screening by mammogram Thyroid nodule Oropharyngeal dysphagia UTI (urinary tract infection) Right kidney stone COVID-19 Chest pain Delayed gastric emptying Daytime sleepiness Snoring Migraine Unspecified Eustachian tube disorder, left ear Acute pharyngitis Urgency of micturition Abdominal pain Dysuria Diarrhea Hematuria Acute conjunctivitis of left eye Wound of right leg Abdominal cramping Allergic conjunctivitis Nephrolithiasis Colitis Interstitial cystitis Chronic cough COVID-19 long hauler COVID-19 Elevated lipase Pain in both knees Vaginal itching Suprapubic pain Vaginal spotting Hematuria Frequency of micturition Myalgia Post-vaccination reaction Palpitations Bilateral lower extremity pain Hearing deficit Frequency of micturition Toe swelling Toe pain, right Vitamin B12 deficiency Scalp cyst Vitamin D deficiency GERD (gastroesophageal reflux disease) Multiple thyroid nodules Lateral meniscal tear Restrictive lung disease Benign hematuria Hemorrhoids Irritable bowel syndrome Cervical disc herniation Impaired glucose tolerance Hypercholesterolemia Erosive esophagitis Surgical History Hx of colonoscopy H/O esophagogastroduodenoscopy S/P excision of lipoma Hx of tubal ligation History of lumpectomy of left breast Family History Family History Father Skin cancer Mother Skin cancer High blood pressure Heart problem Maternal Grandfather Skin cancer Cancer FH: prostate cancer Brother Schizophrenia Other CVA (cerebral vascular accident) Mental health problem Social History Social History Household Members: None Housing: Apartment Alcohol intake: never Patient Tobacco Use Status: Former Tobacco user Tobacco use type: Cigarette Years Smoked: quit 2008 Smoked in Last 30 Days: No e-Cigarette/Vaping Use: Never Used Second Hand Smoke Exposure: Yes Use of substances other than those prescribed or required for medical reasons: No Advance Directives: No Advance Directives Information Provided: Yes Do you have a plan to hurt others: No Plan Patient : No service: No Current occupational status: employed Current occupation: [employer] Current occupational exposures/hazards: No Cognitive needs: No Hearing needs: No Vision needs: No Physical Exam ED Vital Signs: Vital Signs - 24 hr 01/03/25 13:14 01/03/25 17:52 01/03/25 18:00 Temperature 98 F 98.2 F 97.7 F Pulse Rate 89 60 78 Respiratory Rate 18 14 16 Blood Pressure 136/76 107/46 L 118/56 L Pulse Oximetry 98 99 99 Oxygen Delivery Method Room Air Room Air Room Air BMI result Body Mass Index 25.8 Appearance: Alert. Oriented X3. No acute distress. Eyes: No pallor or icterus ENT: Pharynx normal. Oral Mucosa moist Neck: Normal inspection. Neck supple. CVS: Normal heart rate and rhythm. Pulses normal. Respiratory: No respiratory distress. Equal air entry bilateral, no wheezing/rales/rhonchi Abdomen: Soft and deep tenderness lower abdomen. Bowel sounds are present, no mass palpable, no CVA tenderness Skin: Skin warm and dry. Normal skin color. Normal skin turgor. Extremities: No lower extremity edema. No calf tenderness Neuro: Oriented X 3. No motor deficit. Course Course Course Narrative: RME, this is a rapid medical exam performed by Raj Gregory please refer to primary provider for complete H&P- 54 year old female presents for evaluation of lower abdominal pain, burning with urination and vaginal bleeding. She reports that she is 7 years s/p menopause. Plan for labs, UA Medications Administered Discontinued Medications Generic Name Dose Route Start Last Admin Trade Name Freq PRN Reason Stop Dose Admin Dicyclomine HCl 20 mg 01/03/25 18:10 01/03/25 18:30 Dicyclomine Hcl 10 Mg Capsule PO 01/03/25 18:11 20 mg ONCE ONE Administration Medical Decision Making Medical Decision Making [facility] Narrative: Patient's history of anxiety, IBS, dysfunctional uterine bleed with previous workup negative been followed by GI at this time patient comes here with similar complaints workup also negative with this time patient advised to continue dicyclomine follow with four h agent patient's ultrasound of the pelvis also negative Lab Data [facility] Lab Attestation statement: I reviewed the patient's lab results. 01/03/25 13:35 01/03/25 13:35 Labs: Lab Results 01/03/25 Range/Units 13:35 WBC 7.3 (4.8-10.8) X10*3/uL RBC 4.47 (4.20-5.50) X10*6/uL Hgb 13.2 (12.0-16.0) g/dl Hct 39.6 (37.0-47.0) % MCV 88.6 (80.0-98.0) fL MCH 29.5 (27.0-33.0) pg MCHC 33.3 (31.0-35.0) g/dl RDW 12.8 (11.0-16.0) % Plt Count 281 (160-400) X10*3/uL MPV 10.0 (9.4-12.3) fL Immature Gran % (Auto) 0.3 (0.0-0.4) % Neut % (Auto) 49.8 (45-73) % Lymph % (Auto) 38.8 (20-40) % [place] % (Auto) 6.2 (2-11) % Eos % (Auto) 4.3 H (0-4) % Baso % (Auto) 0.6 (0-2) % Lymph # (Auto) 2.8 (1.2-4.9) X10*3/uL [place] # (Auto) 0.5 (0.1-1.2) X10*3/uL Eos # (Auto) 0.3 (0.0-0.4) X10*3/uL Baso # (Auto) 0.0 (0.0-0.2) X10*3/uL Abs Immat Gran (auto) 0.02 (0.00-0.03) X10*3/uL Absolute Neuts (auto) 3.6 (2.0-8.3) x10*3/uL Absolute Nucleated RBC 0.000 (0.0-0.012) X10*3/uL Nucleated RBC % (auto) 0.0 (0.0-0.2) /100WBC Sodium 141 (135-145) mmol/L Potassium 3.9 (3.3-5.1) mmol/L Chloride 109 H (96-108) mmol/L Carbon Dioxide 26 (22-29) mmol/L Anion Gap 10 L (12-20) BUN 19 H (9-16) mg/dL Creatinine 0.75 (0.5-1.4) mg/dL Estim Creat Clear Calc 83.4 Estimated GFR > 60 Random Glucose 131 H (60-115) mg/dL Calcium 9.2 (8.4-10.2) mg/dL Total Bilirubin 0.1 (0.0-1.0) mg/dL AST 18 (5-31) U/L ALT 20 (0-31) U/L Alkaline Phosphatase 90 (39-117) U/L Total Protein 6.7 (6.5-8.0) g/dL Albumin 4.1 (3.5-5.0) g/dL Lipase 72 (8-78) U/L Urine Color Yellow Urine Appearance Clear Urine pH 5.5 (5.0-9.0) Ur Specific [place] 1.020 (1.005-1.025) Urine Protein Negative (Neg-Trace) mg/dL Urine Glucose (UA) Negative (Negative) mg/dL Urine Ketones Negative (Negative) mg/dL Urine Blood Large (3+) H (Negative) Urine Nitrite Negative (Negative) Ur Leukocyte Esterase Negative (Negative) Urine RBC 11-20 H (0-2) /HPF Urine WBC 0-5 (0-5) /HPF Ur Squamous Epith Cells 0-2 (0-2) /HPF Urine Bacteria None Seen (None Seen) Hyaline Casts 0-2 (0-2) /LPF Independent Interpretation I performed an independent interpretation of an: Ultrasound Radiology Impression Discussion of test interpretation with radiology: I have reviewed the radiologist's reading. Discharge Plan Discharge Clinical Impression: Irritable bowel syndrome, DUB (dysfunctional uterine bleeding) Patient Disposition: Home, Self-Care Instructions: Abnormal (Dysfunctional) Uterine Bleeding (ED), Irritable Bowel Syndrome (ED) Additional Instructions: Your workup essentially is negative in the ER Patient is to follow up with four h agent for vaginal bleed Continue take dicyclomine as prescribed by your GI Prescriptions: No Action cholecalciferol (vitamin D3) 50 mcg (2,000 unit) tablet 50 mcg PO DAILY Qty: 90 3RF fenofibrate 160 mg tablet 160 mg PO DAILY Qty: 90 2RF magnesium oxide 400 mg (241.3 mg magnesium) tablet 400 mg PO DAILY Qty: 90 1RF Lactobacillus acidophilus 100 mg (1 billion cell) capsule 100 mg PO DAILY Qty: 150 1RF baclofen 5 mg tablet 5 mg PO BEDTIME MDD 10mg Qty: 90 2RF codeine-guaifenesin 10-100 mg/5 mL liquid 5 ml PO Q6H PRN (Reason: cough) Qty: 120 0RF fluticasone propionate [Flonase Allergy Relief] 50 mcg/actuation spray,suspension 2 spray intranasal DAILY Qty: 16 0RF Rx Instructions: administer into each nostril albuterol sulfate [Ventolin HFA] 90 mcg/actuation HFA aerosol inhaler 1 puff inhalation QID PRN (Reason: for wheezing) Qty: 18 1RF meclizine 25 mg tablet 25 mg PO BID PRN (Reason: dizziness) Qty: 30 0RF dicyclomine 20 mg tablet 20 mg PO QID PRN (Reason: abdominal pain) 90 Days Qty: 120 1RF multivitamin Tablet 1 tab PO DAILY (DME) blood pressure monitor [Blood Pressure Kit] Kit See Rx Instructions .ROUTE .MEDSUPPLY Qty: 1 0RF Rx Instructions: As directed ondansetron HCl 4 mg tablet 4 mg PO Q8H PRN (Reason: nausea and vomiting) Qty: 20 0RF lorazepam [Ativan] 0.5 mg tablet 0.5 mg PO ONCE PRN (Reason: MRI procedure ) Qty: 1 0RF benzonatate 200 mg capsule 200 mg PO BID-TID PRN (Reason: cough) Qty: 14 0RF loratadine 10 mg tablet 10 mg PO DAILY Qty: 90 2RF atorvastatin 20 mg tablet 20 mg PO DAILY Qty: 90 2RF pantoprazole 40 mg tablet,delayed release (DR/EC) 40 mg PO DAILY Qty: 90 2RF Print Language: Sri Lankan
[2025-01-03 13:14] VITALS: BP 136/76; PULSE 89; RESP 18; TEMP 36.6; O2SAT 98; BMI 25.8
[2025-01-03 13:43] LABS: MANUAL DIFF FLAG NO
[2025-01-03 13:44] LABS: Basophils Percent Auto 0.6 % (0-2); Eosinophils Absolute Auto 0.3 X10*3/uL (0.0-0.4); Eosinophils Percent Auto 4.3 % (0-4); Hematocrit 39.6 % (37.0-47.0); Hemoglobin 13.2 g/dl (12.0-16.0); Imm Gran Abs Auto 0.02 X10*3/uL (0.00-0.03); Imm Gran Pct Auto 0.3 % (0.0-0.4); Lymphocytes Absolute Auto 2.8 X10*3/uL (1.2-4.9); Lymphocytes Percent Auto 38.8 % (20-40); Mean Corpuscular HGB Conc 33.3 g/dl (31.0-35.0); Mean Corpuscular Hemoglobin 29.5 pg (27.0-33.0); Mean Corpuscular Volume 88.6 fL (80.0-98.0); Monocytes Absolute Auto 0.5 X10*3/uL (0.1-1.2); Monocytes Percent Auto 6.2 % (2-11); Neutrophils Absolute Auto 3.6 x10*3/uL (2.0-8.3); Neutrophils Percent Auto 49.8 % (45-73); Platelet Count 281 X10*3/uL (160-400); Red Blood Count 4.47 X10*6/uL (4.20-5.50); Red Cell Distribution Width 12.8 % (11.0-16.0); White Blood Count 7.3 X10*3/uL (4.8-10.8)
[2025-01-03 13:45] LABS: Appearance Urine Clear; Color Urine Yellow; Glucose Urine UA Negative (Negative); Leukocyte Esterase Urine Negative (Negative); Nitrite Urine Negative (Negative); PH 5.5 (5.0-9.0); UMIC TRIGGER UACC YES; Urine Blood Large (3+) (Negative); Urine Ketones Negative (Negative); Urine Protein Negative (Neg-Trace)
[2025-01-03 13:51] LABS: Bacteria Urine None Seen (None Seen); Hyaline Casts Urine 0-2 /LPF (0-2); Squamous Epithelial Cell Urine 0-2 /HPF (0-2); WBC Urine 0-5 /HPF (0-5)
[2025-01-03 14:05] LABS: Alanine Aminotransferase 20 U/L (0-31); Albumin Level 4.1 g/dL (3.5-5.0); Alkaline Phosphatase 90 U/L (39-117); Anion Gap 10 (12-20); Aspartate Amino Transferase 18 U/L (5-31); Bilirubin Total 0.1 mg/dL (0.0-1.0); Blood Urea Nitrogen 19 mg/dL (9-16); Calcium 9.2 mg/dL (8.4-10.2); Carbon Dioxide 26 mmol/L (22-29); Chloride 109 mmol/L (96-108); Creatinine Clr Calc Pharmacy 83.4; Estimated Glomerular Filt Rate > 60; Glucose Random 131 mg/dL (60-115); Lipase 72 U/L (8-78); Potassium 3.9 mmol/L (3.3-5.1); Sodium 141 mmol/L (135-145); Total Protein 6.7 g/dL (6.5-8.0)
--- OUTSIDE RECORDS SUMMARY | 2025-01-03 15:39 | XMS_ITS | Clinical Summary ---
Author Organization [facility] Address [address] [place] [address] Phone Care Team Providers Care Floor Care Technician Name Role Phone Gigi Barrow MD Primary Care Provider [phone] Allergies Active Allergy Reactions Criticality Noted Date [...] GI. We requested her US results from [facility] [place], but they will not fax for [...] EDT Office Visit Obstetrics & Gynecology - [address] [address] Graciela Rordiguez CNM Encounter for well woman exam with [...] Industry Job Start Date Job End Date [employer] DIRECT[employer] Not on file Not on file Not [...] 11/10/2024 3:34 PM EDT Plan of Treatment Upcoming Encounters Date Type Department Care Team (Late st Contact Info) Description 01/05/2025 11:00 AM EDT Office Visit Obstetrics & Gynecology - [address] [address] Graciela Rodriguez, [facility] [address] [place] [id number] Health Maintenance Due Date Last Done Comments Hepatitis B Vaccines (1 of 3 - 19+ 3-dose series) 1988 Pneumococcal Vaccine: 50+ Years (1 of 1 - PCV) 12/09/2019 Cholesterol Screening (Lipid Panel) 07/06/2022 02/26/2012 Colorectal Cancer Screening: Colonoscopy 07/06/2022 04/26/2011 Depression Screening 07/06/2022 HIV Screening 07/06/2022 Social Influencers of Health Screening 07/06/2022 COVID-19 Vaccine (2023- season) 2024 12/13/2020, 11/15/2020 Breast Cancer Screening [...] Anatomical Region Laterality Modality Breast Bilateral Mammography us Historical Provider MD OWUSU BI PROCEDURES Final R esult * Cervical Cancer Screening: HPV (10/21/2023) Cervical Cancer Screening: HPV Negative,A bstracted Historical Provider HEALTH MAINTENANCE Final Result * Hepatitis C Screening (10/21/2023) [facility] Hepatitis C Screening Abstracted [facility] Provider HEALTH MAINTENANCE Final Result * Lipid panel (02/26/2012) [facility] LDL/HDL Ratio 0 Comment:no interpetation,Abs tracted Triglycerides 0 mg/dL Comment:no interpetation,Abs tracted Cholesterol 0 mg/dL Comment:no interpetation,Abs tracted HDL 0 mg/dL Comment:no interpetation,Abs tracted LDL Cholesterol 0 mg/dL Comment:no interpetation,Abs tracted Blood Venous blood specimen / Unknown [facility] Provider LAB BLOOD ORDERABLES Joy l Result * Colonoscopy (04/26/2011) [facility] Colonoscopy no interpreta tion,Abstr acted Anatomical Region Laterality Modality Other [facility] Provider HEALTH MAINTENANCE Final Result from Last 3 Months or Most Recently Relevant to Health Maintenance Insurance [facility] Care Teams Floor Care Technician Relationship Specialty Start Date End Date Gigi Barrow MD [address] [place] [address] [address] [facility] [place] [address] PCP - General Internal Medicine 02/20/16
[2025-01-03 17:52] VITALS: BP 107/46; PULSE 60; RESP 14; TEMP 36.8; O2SAT 99
[2025-01-03 18:00] VITALS: BP 118/56; PULSE 78; RESP 16; TEMP 36.5; O2SAT 99
[2025-01-03] MEDS: Dicyclomine HCl 10 MG CAPSULE 20 MG PO (18:30)
== END 2025-01-04 00:31 | disposition home or self-care (01) ==
PROVIDERS: Physician Assistant; Emergency Provider Internal Medicine; PCP Internal Medicine
DX: K58.9 Irritable bowel syndrome, unspecified (principal); N93.9 Abnormal uterine and vaginal bleeding, unspecified; N93.8 Other specified abnormal uterine and vaginal bleeding; Z87.891 Personal history of nicotine dependence; Z79.899 Other long term (current) drug therapy
CPT/HCPCS: 36415; 76830; 76856; 80053; 81001; 83690; 85025; 99284

== ENCOUNTER → 2025-01-03 13:17 | Outpatient (BNV) | payer OTHER, SELFPAY | PROVIDERS: PCP Internal Medicine; Visit Provider Radiology Diagnostic Radiology | DX: R10.9 Unspecified abdominal pain (principal) | CPT/HCPCS: 76830; 76856 ==

== ENCOUNTER 2025-01-04 13:25 | Outpatient (AMB) | payer OTHER, SELFPAY ==
[2025-01-04 13:29] VITALS: BP 104/66; PULSE 66; TEMP 36.3; O2SAT 98; BMI 26.2
--- NOTE | 2025-01-04 13:29 | MHC.PC.OV ---
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 Required: No Jewelry Cutter: Not Required per policy Accompanied by: Self / Same As Patient Allergies latex [Latex] Allergy (Mild, Verified 01/04/25 13:29) SWELLING/ITCHING Sulfa (Sulfonamide Antibiotics) Allergy (Mild, Verified 01/04/25 13:29) SWELLING/ITCHING, pruritis sulfamethoxazole [From BACTRIM] Allergy (Unknown, Verified 01/04/25 13:29) ITCHY/HIVES trimethoprim [From BACTRIM] Allergy (Unknown, Verified 01/04/25 13:29) ITCHY/HIVES milk Allergy (Verified 01/04/25 13:29) Stomach Upset metoclopramide [From REGLAN] Adverse Reaction (Unknown, Verified 01/04/25 13:29) AGITATION Medication List - Last Reconciled 01/04/25 by Gigi Barrow MD albuterol sulfate 90 mcg/actuation (Ventolin HFA) 1 puff inhalation QID PRN atorvastatin 20 mg PO DAILY baclofen 5 mg PO BEDTIME MDD 10mg blood pressure monitor (Blood Pressure Kit) As directed cholecalciferol (vitamin D3) 50 mcg PO DAILY dicyclomine 20 mg PO QID PRN 90 days fenofibrate 160 mg PO DAILY fluticasone propionate 50 mcg/actuation (Flonase Allergy Relief) 2 sprays intranasal DAILY Lactobacillus acidophilus 100 mg PO DAILY loratadine 10 mg PO DAILY lorazepam (Ativan) 0.5 mg PO ONCE PRN magnesium oxide 400 mg PO DAILY meclizine 25 mg PO BID PRN multivitamin 1 tab PO DAILY ondansetron HCl 4 mg PO Q8H PRN pantoprazole 40 mg PO DAILY Tobacco use date assessed: 01/04/25 Dental Screening Dental Screen Date: 01/04/25 Did you have a dental visit in the last 12 months?: Yes Did you have a dental problem in the last 6 months where you did not have access to dental care?: No Was dental information given to patient?: Patient has dentist [facility] Medical History (Updated 01/04/25 @ 13:58 by Gigi Barrow MD) Urinary incontinence Post-nasal drip Cough Cervicalgia Vertigo Sprain of left medial ankle joint Hordeolum external Dizziness Migraine Tubular adenoma of colon Calcium oxalate crystals in urine Varicose veins of legs Heart palpitations Multiple pigmented nevi Mild carpal tunnel syndrome of right wrist Annual physical exam Chronic idiopathic constipation Tachycardia Shoulder pain, bilateral Upper abdominal pain Pre-op examination SOB (shortness of breath) Mass of left upper extremity Left arm swelling Laceration of left hand Lightheadedness Otitis media Otitis externa Bilateral hand numbness Upper respiratory infection Low back pain Breast cancer screening by mammogram Thyroid nodule Oropharyngeal dysphagia UTI (urinary tract infection) Right kidney stone COVID-19 Chest pain Delayed gastric emptying Daytime sleepiness Snoring Migraine Unspecified Eustachian tube disorder, left ear Acute pharyngitis Urgency of micturition Abdominal pain Dysuria Diarrhea Hematuria Acute conjunctivitis of left eye Wound of right leg Abdominal cramping Allergic conjunctivitis Nephrolithiasis Colitis Interstitial cystitis Chronic cough COVID-19 long hauler COVID-19 Elevated lipase Pain in both knees Vaginal itching Suprapubic pain Vaginal spotting Hematuria Frequency of micturition Myalgia Post-vaccination reaction Palpitations Bilateral lower extremity pain Hearing deficit Frequency of micturition Toe swelling Toe pain, right Vitamin B12 deficiency Scalp cyst Vitamin D deficiency GERD (gastroesophageal reflux disease) Multiple thyroid nodules Lateral meniscal tear Restrictive lung disease Benign hematuria Hemorrhoids Irritable bowel syndrome Cervical disc herniation Impaired glucose tolerance Hypercholesterolemia Erosive esophagitis Surgical History Hx of colonoscopy H/O esophagogastroduodenoscopy S/P excision of lipoma Hx of tubal ligation History of lumpectomy of left breast Family History Father Skin cancer Mother Skin cancer High blood pressure Heart problem Maternal Grandfather Skin cancer Cancer FH: prostate cancer Brother Schizophrenia Other CVA (cerebral vascular accident) Mental health problem Social History Household Members: None Housing: Apartment Alcohol intake: never Patient Tobacco Use Status: Former Tobacco user Tobacco use type: Cigarette Years Smoked: quit 2007 e-Cigarette/Vaping Use: Never Used Second Hand Smoke Exposure: Yes service: No Current occupational status: employed Current occupation: [employer] Current occupational exposures/hazards: No Cognitive needs: No Hearing needs: No Vision needs: No Questionnaire PHQ-9 Over the last 2 weeks, how often have you been bothered by any of the following problems? 1. Little interest or pleasure in doing things: not at all 2. Feeling down, depressed, or hopeless: several days 3. Trouble falling or staying asleep, or sleeping too much: not at all 4. Feeling tired or having little energy: nearly every day 5. Poor appetite or overeating: not at all 6. Feeling bad about yourself - or that you are a failure or have let yourself or your family down: not at all 7. Trouble concentrating on things, such as reading the newspaper or watching television: several days 8. Moving or speaking so slowly that other people could have noticed. Or the opposite - being so fidgety or restless that you have been moving around a lot more than usual: not at all 9. Thoughts that you would be better off or of hurting yourself in some way: not at all Total score: 5 Depression Screening Interpretation: Positive Depression Screening Done: Yes 37908 - PHQ-9 Billing: Yes Source: Developed by Drs. Bill Morris, Chiquis Webster, Duke Madera and colleagues, with an educational claudia from [employer]. Thrive Questionnaire Date Thrive assessed: 01/04/25 I am a: Patient What is your living situation today?: I have a steady place to live Within the past 12 months, did the food you bought not last and you didn't have the money to get more?: Never true Within the past 12 months, did you worry whether your food would run out before you got money to buy more?: Never true Do you have trouble paying for medicines?: No Do you have trouble getting transportation to medical appointments?: No Do you have trouble paying your heating and electricity bill?: No Do you have trouble taking care of your child, family member or friend?: No Do you have trouble with day-to-day activities such as bathing, preparing meals, shopping, managing finances, etc.?: No Are you currently unemployed and looking for a job?: No Are you interested in more education?: No Please select the resources that you would like help with: None Currently or been in a relationship where the following occur: No concerns reported THRIVE Score: 0 AUDIT C Alcohol Use Questionnaire (AUDIT-C) 1. How often do you have a drink containing alcohol?: Never 3. How often do you have six or more drinks on one occasion?: Never Total Score: 0 Score Reviewed/Action Taken: No PACO-7 AMB Questionnaire PACO-7 Date PACO - 7 assessed: 01/04/25 Feeling nervous, anxious, or on edge: 2 = More than half the days Not being able to stop or control worryin = Nearly every day Worrying too much about different things: 3 = Nearly every day Trouble relaxin = Several days Being so restless that it is hard to sit still: 0 = Not at all Becoming easily annoyed or irritable: 1 = Several days Feeling afraid as if something awful might happen: 0 = Not at all Total PACO-7 score (0-4 normal; 5-9 mild; 10-14 moderate; 15-21 severe): 10 Source: Developed by Drs. Bill Morris, Chqiuis Webster, Duke Madera and colleagues, with an educational claudia from [employer]. PACO-7 Assessment Billing PACO-7 Assessment Tool: PACO-7 Assessment 35275 Physical exam (Primary Care) Vital Signs: Last Vital Signs Temp 97.3 F 01/04/25 13:29 Pulse 66 01/04/25 13:29 BP 104/66 01/04/25 13:29 Pulse Ox 98 01/04/25 13:29 Oxygen Delivery Method Room Air 01/04/25 13:29 BMI result Body Mass Index 26.2 Tobacco/Smoking Status: Tobacco use Status Tobacco use date assessed 01/04/25 01/04/25 13:33 Patient Tobacco Use Status Former Tobacco user 01/04/25 13:33 Tobacco use type Cigarette 01/04/25 13:33 e-Cigarette/Vaping Use Never Used 01/04/25 13:33 PHQ-9: PHQ-9 Score PHQ-9: Total score 5 01/04/25 13:46 Depression Screening Interpretation: Positive Thrive Assessment: Date of Thrive Assessment Date Thrive assessed 01/04/25 01/04/25 13:33 Currently or been in a relationship where the following occur: No concerns reported Const General: alert; No acute distress Eyes Conjunctivae: conjunctivae normal Resp Auscultation: clear to auscultation bilaterally Cardio Rate: regular rate Rhythm: regular rhythm GI Inspection: Yes normal to inspection Extrem General: Yes normal to inspection and No edema Coding Level of Care Code Est Pt Level 4 (88178) Complex EM visit Add On G2211 Diagnoses Irritable bowel syndrome K58.9 Erosive esophagitis K22.10 Hypercholesterolemia E78.00 Impaired glucose tolerance R73.02 Generalized anxiety disorder F41.1 DUB (dysfunctional uterine bleeding) N93.8 Additional Codes PACO-7 Assessment Billing - PACO-7 Assessment Tool: PACO-7 Assessment 51310 ([id number]) PHQ-9 - 12836 - PHQ-9 Billing: Yes ([id number]) Assessment & Plan Assessment & Plan (1) Irritable bowel syndrome: Code(s): K58.9 - Irritable bowel syndrome, unspecified Category: Medical Plan: Patient follows up with Gastroenterology on pantoprazole. PAtient decline having any bowel problem (2) Erosive esophagitis: Comment: 02/2024 scope= well healed normal ; EGD and colon December 2018 , May 2019 5 years Code(s): K22.10 - Ulcer of esophagus without bleeding Category: Medical Plan: Continue with pantoprazole (3) Hypercholesterolemia: Code(s): E78.00 - Pure hypercholesterolemia, unspecified Category: Medical Plan: Avoid fried foods, chicken skin, eggs, butter margarine, pastries and meat. Be it pork or beef they have a lot of cholesterol on fenofibrate and atorvastatin (4) Impaired glucose tolerance: Code(s): R73.02 - Impaired glucose tolerance (oral) Category: Medical Plan: Decrease the amount of carbohydrate intake, pasta, bread, rice and potatoes are all sugar and that is aside from all the sweet stuff, remember that fruits are good but they are Sweet also. (5) Generalized anxiety disorder: Comment: [facility] counseling Code(s): F41.1 - Generalized anxiety disorder Category: Medical Plan: Continue with counseling and therapy (6) DUB (dysfunctional uterine bleeding): Code(s): N93.8 - Other specified abnormal uterine and vaginal bleeding Category: Medical Plan: post menopausal vaginal bleeding - will see aged or disabled care worker [place] Plan History of Present Illness The patient is a 54-year-old female presenting with abnormal uterine bleeding and irritable bowel syndrome. The patient describes the bleeding as having returned after a seven-year cessation, having previously occurred three to four years ago, resolving following a normal biopsy. Currently, the bleeding is significant yet not excessively heavy, with a recent ultrasound identifying a small uterine fibroid. The patient's irritable bowel syndrome is not currently symptomatic, as bowel movements are described as regular. She experiences occasional constipation with no diarrhea. There are reports of abdominal bloating and severe pain likened to labor pain, with no current treatment specifically for the bloating but monitoring ongoing. Her medical history includes chronic migraines and generalized anxiety, which are reportedly stable, gastroesophageal reflux disease managed with pantoprazole, and hypercholesterolemia with the last LDL measurement at 129 mg/dL. Recent blood work indicated elevated fasting glucose and similar hemoglobin A1c levels. Thyroid function test results were normal despite a history of nodules. Cervicalgia is present, and the patient prefers conservative management with magnesium, declining other therapies. Idiopathic constipation is addressed with bowel regimen adjustments. Health Maintenance - LDL cholesterol managed with pravastatin; recent levels are acceptable at 129 mg/dL. - Current mammogram up to date. - Regular follow-ups with gastroenterology for GERD management with pantoprazole. - Monitoring of glucose levels in light of impaired glucose tolerance. Social History - Patient reports no engagement in regular exercise. - Described dietary habits appear occasionally varied; bloating noted without direct correlation to food intake. Review of Systems - Gastrointestinal: Reports abdominal bloating; denies diarrhea. Constipation occurs occasionally. - Genitourinary: Reports significant vaginal bleeding; denies incontinence. - Musculoskeletal: Reports cervical pain. - Neurological: Stable chronic migraines. - Psychiatric: Ongoing anxiety but stable condition. Physical Exam Results - Labs: Glucose 131 mg/dL, Hemoglobin A1c 5.7%. - Cholesterol results as follows: LDL 129 mg/dL, Total Cholesterol 211 mg/dL, Triglycerides 125 mg/dL, HDL 57 mg/dL. - Ultrasound revealed a 7 mm uterine fibroid. Plan The overarching plan involves further gynecological assessment due to the resurgence of abnormal uterine bleeding in a post-menopausal context. No immediate alterations to current GERD management with pantoprazole are warranted. For cholesterol, current treatments with diet and statin therapy remain sufficient, with regular monitoring recommended. Abdominal discomfort and bloating should be further examined by gastroenterology if symptoms persist. The patient's impaired glucose tolerance will be addressed through lifestyle modification discussions. Maintaining thyroid surveillance is advised due to nodular history, albeit current results demonstrate normal function. The patient is advised to remain informed on potential relevant symptoms and lifestyle adjustments in consultation with respective specialists. Patient was informed and verbally consented to the use of an ambient scribe for clinic note documentation during this visit. Discussion Notes I engaged in a review with the patient concerning the recurrent uterine bleeding, outlining the importance of gynecological follow-up considering the post-menopausal bleeding and detected fibroid. We discussed her GERD management using pantoprazole, with reassurances of ongoing evaluation by gastroenterology. I addressed cholesterol management strategies with her, highlighting the importance of continued medication adherence and lifestyle modifications to manage her cholesterol levels. We reviewed the elevated glucose level and A1c results and the significance of lifestyle changes to control these values better. A comprehensive plan for thyroid monitoring is maintained despite current normal results due to her history of thyroid nodules. I discussed with the patient her symptoms of bloating and pain, advising a continued focus on symptom tracking and follow-up for thorough assessment. Patient Instructions - Follow-up with gynecology as scheduled. - Continue taking pantoprazole as prescribed for GERD. - Maintain current cholesterol management with prescribed medications and follow lifestyle recommendations. - Monitor glucose levels and follow advice for dietary changes and physical activity - Report any change in symptoms such as increased bleeding or additional pain. - Ensure routine health screenings and follow-up appointments are kept.
--- OUTSIDE RECORDS SUMMARY | 2025-01-04 15:52 | XMS_ITS | Clinical Summary ---
Author Organization [facility] Address [address] [place] [address] Phone Care Team Providers Care Otolaryngologist Name Role Phone Gigi Barrow MD Primary Care Provider [phone] Allergies Active Allergy Reactions Criticality Noted Date [...] GI. 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/ [employer] Not on file Not on file Not [...] EDT Office Visit Obstetrics & Gynecology - [address] [address] Graciela Rodriguez, [facility] [address] [place] [address] Health Maintenance Due Date Last Done Comments [...] Final Result * Hepatitis C Screening (10/21/2023) [facility] Hepatitis C Screening Abstracted [facility] Provider HEALTH MAINTENANCE Final Result * Lipid panel (02/26/2012) [facility] LDL/HDL Ratio 0 Comment:no interpetation,Abs tracted Triglycerides 0 mg/dL Comment:no interpetation,Abs tracted Cholesterol 0 mg/dL Comment:no interpetation,Abs tracted HDL 0 mg/dL Comment:no interpetation,Abs tracted LDL Cholesterol 0 mg/dL Comment:no interpetation,Abs tracted Blood Venous blood specimen / Unknown [facility] Provider LAB BLOOD ORDERABLES Joy l Result * Colonoscopy (04/26/2011) [facility] Colonoscopy no interpreta tion,Abstr acted Anatomical Region Laterality Modality Other [facility] Provider HEALTH MAINTENANCE Final Result from Last 3 Months or Most Recently Relevant to Health Maintenance Insurance [facility] [place] [address] Care Teams Otolaryngologist Relationship Specialty Start Date End Date Gigi Barrow MD [address] [place] [address] [address] [facility] [place] [address] PCP - General Internal Medicine 02/20/16
== END 2025-01-04 14:02 | disposition home or self-care (01) ==
LOC: HO.HMCH 13:26
PROVIDERS: PCP Internal Medicine; Visit Provider Internal Medicine
DX: K58.9 Irritable bowel syndrome, unspecified (principal); K22.10 Ulcer of esophagus without bleeding; E78.00 Pure hypercholesterolemia, unspecified; R73.02 Impaired glucose tolerance (oral); F41.1 Generalized anxiety disorder; N93.8 Other specified abnormal uterine and vaginal bleeding

== ENCOUNTER → 2025-01-04 13:25 | Outpatient (BNVA) | payer OTHER, SELFPAY | PROVIDERS: PCP Internal Medicine; Visit Provider Internal Medicine | DX: K58.9 Irritable bowel syndrome, unspecified (principal); K22.10 Ulcer of esophagus without bleeding; E78.00 Pure hypercholesterolemia, unspecified; R73.02 Impaired glucose tolerance (oral); F41.1 Generalized anxiety disorder; N93.8 Other specified abnormal uterine and vaginal bleeding; Z79.899 Other long term (current) drug therapy; Z13.31 Encounter for screening for depression; Z13.30 Encounter for screening examination for mental health and behavioral disorders, unspecified | CPT/HCPCS: 96127; 99212 ==

== ENCOUNTER 2025-02-17 07:53 | Outpatient (REF) | payer OTHER, SELFPAY ==
[2025-02-17 11:56] LABS: Resp Syncy Virus RNA Qual PCR NEGATIVE (Negative); SARS COV2 PCR INHOUSE NEGATIVE (Negative)
== END 2025-02-17 07:54 | disposition home or self-care (01) ==
LOC: HO.LNP 07:53
PROVIDERS: PCP Internal Medicine; Visit Provider Physician Assistant Medical
DX: R09.89 Other specified symptoms and signs involving the circulatory and respiratory systems (principal); J02.9 Acute pharyngitis, unspecified; Z87.891 Personal history of nicotine dependence; Z11.2 Encounter for screening for other bacterial diseases
CPT/HCPCS: 87637; 87880; 99212

== ENCOUNTER 2025-02-17 07:53 | Outpatient (AMB) | payer OTHER, SELFPAY ==
--- OUTSIDE RECORDS SUMMARY | 2025-02-17 07:55 | XMS_ITS | Patient Health Record ---
Author Organization [facility] Address [address] [place] [address] Care Team Providers Care Machine Grainer Name Role Phone Bill Miranda Unavailable [phone] Reason For Referral No Information Plan Of Treatment No Information
--- OUTSIDE RECORDS SUMMARY | 2025-02-17 07:55 | XMS_ITS | Clinical Summary ---
Author Organization [facility] Address [address] [place] [address] Phone Care Team Providers Care Docket Clerk Name Role Phone Gigi Barrow MD Primary Care Provider [phone] Allergies Active Allergy Reactions Criticality Noted Date Comments Latex 06/17/2021 Metoclopramide Hcl 06/17/2021 Sulfa (Sulfonamide Antibiotics) 05/29 Medications No known medications Social History Tobacco Use Types Packs/Day Years Used Date Smoking Tobacco: Never Assessed Education Answer Date Recorded Are you interested in more education? Not on juan j e 11/23/2022 Are you concerned about learning? Not on file 11/23/2022 No 11/23/2022 No 11/23/2022 Digital Access Answer Date Recorded No 12/24/2022 No 12/24/2022 Reliable internet access at home? Not on file 12/24/2022 Device with a working camera? Not on file Comments Unknown Sex and Gender Information Value Date Recorded Sex Assigned at Female 06/17/2021 5:22 PM EST Legal Sex Female 4:54 PM EST Gender Identity Female 06/17/2021 5:22 PM EST Sexual Orientation Not on file Last Filed Vital Signs Vital Sign Reading Time Taken Comments Blood Pressure 119/68 06/17/2021 7:09 PM EST Pulse 69 06/17/2021 7:09 PM EST Temperature 36.5 C (97.7 F) 06/17/2021 7:09 PM EST Respiratory Rate 16 06/17/2021 7:09 PM EST Oxygen Saturation 98% 06/17/2021 7:09 PM EST Inhaled Oxygen Concentration - - Weight 70.8 kg (156 lb) 06/17/2021 5:19 PM EST Height 165.1 cm (5' 5 ) 06/17/2021 5:19 PM EST Body Mass Index 25.96 06/17/2021 5:19 PM EST Plan of Treatment Health Maintenance Due Date Last Done Comments LIPID PANEL 1969 DEPRESSION SCREENING 1981 SMOKING Hx and SMOKELESS TOBACCO SCREENING 1982 HEPATITIS C SCREENING 12/09/1987 HIV ONE-TIME SCREENING (18-6 5 YEARS) 12/09/1987 PAP SMEAR 1990 MAMMOGRAM 2009 COLOGUARD 2014 COLONOSCOPY 2014 COLORECTAL CANCER SCREENING 2014 FIT TEST 2014 FOBT 2014 SIGMOIDOSCOPY 2014 VIRTUAL COLONOSCOPY 2014 PNEUMOCOCCAL VACCINES (50+ years) (1 of 1 - PCV) 12/09/2019 ZOSTER VACCINES (1 of 2) 12/09/2019 COVID-19 VACCINE (3 - 2023-2 5 season) 2024 12/13/2020, 11/15/2020 Adult Td,Tdap Booster 11/28/2025 11/29/2015 HEPATITIS A VACCINES Aged Out No long er eligible based on patient's age to complete this topic HIB VACCINES Aged Out No longer eligi ble based on patient's age to complete this topic MENINGOCOCCAL VACCINES (ACWY) Aged Out No longer eligible based on patient's age to complete this topic MENINGOCOCCAL VACCINES (B) Aged Out N o longer eligible based on patient's age to complete this topic Medical [place] [address] [facility] [place] [address] [place] [address] ACO ACO ACO ACO [facility] ACO [facility] ACO Care Teams Docket Clerk Relationship Specialty Start Date End Date Gigi Barrow MD [address] [place] [address] PCP - General Internal Medicine 06/17/21 Additional Source Comments The information contained in this document represents components of the legal health record. It is not the complete legal health record.[facility]
--- OUTSIDE RECORDS SUMMARY | 2025-02-17 07:55 | XMS_ITS | Clinical Summary ---
Author Organization [facility] Address [address] [place] [address] Phone Care Team Providers Care Epic Radiant Analyst Name Role Phone Gigi Barrow MD Primary Care Provider [phone] Allergies Active Allergy Reactions Criticality Noted Date [...] A DAY NEEDED FOR DIZZINESS 4 Active dicyclomine (BENTYL) 20 mg tablet TAKE 1 TABLET BY MOUTH 4 TIMES A DAY NEEDED FOR ABDOMINAL PAIN FOR 90 DAYS 5 Active Active Problems Problem Noted Date Diagnosed Date Postmenopausal bleeding 02/15/2025 Pelvic pain 10/19/2020 Overview (08/13/2024): Last Assessment & Plan: No evidence of acute abdomen. I encouraged her to keep her follow up appts with urology and GI. We requested her US results from [facility], but they will not fax [...] Encounters Date Type Department Care Team Description 02/15/2025 2:00 PM EDT Procedure visit Obstetrics & Gynecology - [address] [phone] Luly Brown DO Post-menopausal bleeding (Primary Dx); Endometrial polyp 01/06/2025 Telephone Obstetrics & Gynecology [address] [address] Yasmeen Price RN 01/05/2025 11:00 AM EDT Office Visit Obstetrics & Gynecology [address] [address] Graciela Rodriguez CNM Post-menopausal bleeding (Primary Dx); Pelvic pain; Bloating symptom from Last 3 Months Immunizations Name Administration [...] Cigarettes Q uit: 09/26/2007 Smokeless Tobacco: Never Tobacco Cessation:Counseling Given: Not Answered Alcohol Use Standard Drinks/Week Comments No 0 (1 standard drink = 0.6 oz pur e alcohol) Comments No Sex and Gender Information Value Date Recorded Sex Assigned at Not on file Legal Sex Female 5:42 PM EST Gender Identity Not on file Sexual Orientation Not on file 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 Not on file Not on file Not on file Obstetrics History Para Term AB IAB SAB Ectopic Multiple Livin g Live Births 3 2 2 1 2 2 Date Outcome GA Total Labor Labor/2nd/3rd Weight Sex Type Anes PTL Su A1 A5 Name Clin AB 1987 Term M Vag-S pont Living 1993 Term F Vag-S pont Living Last Filed Vital Signs Vital Sign Reading Time Taken Comments Blood Pressure 116/68 02/15/2025 1:32 PM EDT Pulse 82 02/15/2025 1:32 PM EDT Temperature - - Respiratory Rate - - Oxygen Saturation - - Inhaled Oxygen Concentration - - Weight 71.8 kg (158 lb 6.4 oz) 02/15/2025 1:32 P M EDT Height 165.1 cm (5' 5 ) 02/15/2025 1:32 PM EDT Body Mass Index 26.36 02/15/2025 1:32 PM EDT Plan of Treatment Upcoming Encounters Date Type Department Care Team (Late st Contact Info) Description 04/20/2025 9:15 AM EDT Hospital Encounter [facility] Main [place] [address] [place] [phone] Luly Brown, DO [address] [place] [address] 04/20/2025 9:15 AM EDT - 04/20/2025 10:45 AM EDT Surgery [facility] OR [address] [place] [phone] Luly Brown, DO [address] [place] [address] HYSTEROSCOPY with D&C [98605 (CPT )] Scheduled Procedures Name Priority Associated Diagnoses Date/Ti me HYSTEROSCOPY Postmenopausal bleeding 04/20/2025 9:15 AM EDT Health Maintenance Due Date Last Done Comments Hepatitis B Vaccines (1 of 3 - 19+ 3-dose series) 1988 Pneumococcal Vaccine: 50+ Years (1 of 1 - PCV) 12/09/2019 Cholesterol Screening (Lipid Panel) 07/06/2022 02/26/2012 Colorectal Cancer Screening: Colonoscopy 07/06/2022 04/26/2011 HIV Screening 07/06/2022 Social Influencers of Health Screening 07/06/2022 COVID-19 Vaccine ( season) 2024 12/13/2020, 11/15/2020 Depression Screening 07/28/2024 Influenza Vaccine (#1) 2025 , 05/12/2023, 05/06/2022, Additional history exists Breast Cancer Screening 08/25/2026 08/25/2024 Cervical Cancer Screening: HPV 10/20/2028 10/21/2023 DTaP,Tdap,and Td Vaccines (3 - Td or Tdap) 03/01/2034 03/01/2024, 11/29/2015 Zoster Vaccines Completed 04/03/2023, 10/24/2022 Hepatitis C Screening Completed 10/21/2023 HIB Vaccines [...] Procedure Name Priority Date/Time Associated Diagnosis Comments CANCER ANTIGEN 125 Routine 01/07/2025 12 :48 PM EDT Post-menopausal bleeding Bloating symptom THYROID STIMULATING HORMONE WITH REFLEX TO FREE T4 AND FREE T3 Routine 01/07/2025 12:48 PM EDT Post-menopausal bleeding Bloating symptom TRICHOMONAS VAGINALIS ANTIGEN Routine 01/05/2025 11:17 AM EDT Post-menopausal bleeding Pelvic pain CHLAMYDIA TRACHOMATIS AND NEISSERIA GONORRHOEAE PCR Routine 01/05/2025 11:17 AM EDT Post-menopausal bleeding Pelvic pain WET PREP, GENITAL Routine 01/05/2025 11: 17 AM EDT Post-menopausal bleeding Pelvic pain MG MAMMO DIGITAL DIAGNOSTIC BILAT Routine 08/25/2024 3:11 PM EST HPV Routine 10/21/2023 HEPATITIS C SCREENING Routine 10/21/2023 LIPID PANEL Routine 02/26/2012 COLONOSCOPY Routine 04/26/2011 from Last 3 Months or Most Recently Relevant to Health Maintenance Results * Thyroid stimulating hormone with reflex to free t4 and free t3 (01/07/2025 12:48 PM EDT) TSH 1.54 0.40 - 4.00 mcIU/mL LAB CHEMISTRY METHOD 01/07/2025 5:55 PM EDT [facility] Blood Venous blood specimen / Unknown Venipuncture / Unknown 01/07/2025 12:48 PM EDT 01/07/2025 12:48 PM EDT us [facility] LAB BLOOD ORDERABLES Final Re sult [facility] [address] [place] [address], * Cancer antigen 125 (01/07/2025 12:48 PM EDT) CA 125 7.9 <35.0 unit/mL LAB CHEMISTRY METHOD 01/07/2025 6:24 PM EDT [facility] Blood Venous blood specimen / Unknown Venipuncture / Unknown 01/07/2025 12:48 PM EDT 01/07/2025 12:48 PM EDT Narrative [facility] - 01/07/2025 6:24 PM EDT The Siemens Advia CoreOpticsaur Chemiluminescent Immunoassay is used. Results obtained with different assay methods or kits cannot be used interchangeably. Results cannot be interpreted as absolute evidence of the presence or absence of malignant disease. [facility] LAB BLOOD ORDERABLES Final Re sult Performing Organization Address [facility]/ZIP Co de Phone Number [facility] [address] [place] [address], * Trichomonas vaginalis antigen (01/05/2025 11:17 AM EDT) Trichomonas vaginalis Negative Negative 01/05/2025 12:30 PM EDT [facility] Swab Vaginal structure / Unknown Non-blood Collection / Unknown 01/05/2025 11:17 AM EDT 01/05/2025 12:07 PM EDT [facility] LAB MICROBIOLOGY - GENERAL OR DERABLES Final Result Performing Organization Address City/[facility]/ZIP Co de Phone Number [facility] [address] [place] [address], * Chlamydia trachomatis and Neisseria gonorrhoeae molecular study (01/05/2025 11:17 AM EDT) Neisseria gonorrhoeae PCR Negative Negative LAB MOLECULAR DIAGNOSTICS METHOD 01/05/2025 3:58 PM EDT [facility] Chlamydia trachomatis PCR Negative Negative LAB MOLECULAR DIAGNOSTICS METHOD 01/05/2025 3:58 PM EDT [facility] Swab Cervix uteri structure / Unknown Non-blood Collection / Unknown 01/05/2025 11:17 AM EDT 01/05/2025 12:07 PM EDT [facility] MICROBIOLOGY - GENERAL OR DERABLES Final Result Performing Organization Address [facility] Co de Phone Number [facility] [address] [place] [address], * Wet prep, genital (01/05/2025 11:17 AM EDT) Clue Cells, Wet Prep Negative Negative 01/05/2025 12:30 PM EDT [facility] Yeast, Wet Prep Negative Negative 01/05/2025 12:30 PM EDT [facility] Trichomonas, Wet Prep Indeterminate Negative 01/05/2025 12:30 PM EDT [facility] Comment:Refer to Trichomonas antigen. Swab Vaginal structure / Unknown Non-blood Collection / Unknown 01/05/2025 11:17 AM EDT 01/05/2025 12:07 PM EDT [facility] MICROBIOLOGY - GENERAL OR DERABLES Final Result Performing Organization Address [facility]/ZIP Co de Phone Number [facility] [address] [place] [address], [place] [phone] * MG Mammo Digital Diagnostic bilat (08/25/2024 3:11 PM EST) Anatomical Region Laterality Modality Breast Bilateral Mammography [facility] Provider IMG BI PROCEDURES Final R esult * Cervical Cancer Screening: HPV (10/21/2023) [facility] Cervical Cancer Screening: HPV Negative,A bstracted [facility] Provider HEALTH MAINTENANCE Final Result * Hepatitis C Screening (10/21/2023) [facility] Hepatitis C Screening Abstracted [facility] Provider HEALTH MAINTENANCE Final Result * Lipid panel (02/26/2012) [facility] LDL/HDL Ratio 0 Comment:no interpetation,Abs tracted Triglycerides 0 mg/dL Comment:no interpetation,Abs tracted Cholesterol 0 mg/dL Comment:no interpetation,Abs tracted HDL 0 mg/dL Comment:no interpetation,Abs tracted LDL Cholesterol 0 mg/dL Comment:no interpetation,Abs tracted Blood Venous blood specimen / Unknown [facility] Provider LAB BLOOD ORDERABLES Joy l Result * Colonoscopy (04/26/2011) [facility] Colonoscopy no interpreta tion,Abstr acted Anatomical Region Laterality Modality Other [facility] Provider HEALTH MAINTENANCE Final Result from Last 3 Months or Most Recently Relevant to Health Maintenance Insurance [facility] [employer] Care Teams Epic Radiant Analyst Relationship Specialty Start Date End Date Gigi Barrow MD [address] [facility] [address] [facility] [place] [address] PCP - General Internal Medicine 02/20/16
[2025-02-17 08:03] VITALS: BP 112/86; PULSE 98; TEMP 37.1; O2SAT 96; BMI 26.0
--- NOTE | 2025-02-17 08:03 | AM.OFFWIN_ITS ---
Intake Vital Signs 02/17/25 08:03 Height 5 ft 5 in Weight 156 lb BMI 26.0 BP 112/86 Blood Pressure Location Lt brachial Position Sitting Pulse 98 Pulse Source Pulse Oximeter Temp 98.7 F Temp Source Oral Pulse Oximetry (%) 96 Oxygen Delivery Method Room Air Intake Visit Reasons: EP pain on throat, head pressure, diarreah Patient Tobacco Use Status: Former Tobacco user Mail Delivery Supervisor Required: No Is last menstrual period known: No Post menopausal: Yes Patient : No Allergies latex (Latex) Allergy (Mild, Verified 02/17/25 08:12) SWELLING/ITCHING Sulfa (Sulfonamide Antibiotics) Allergy (Mild, Verified 02/17/25 08:12) SWELLING/ITCHING, pruritis sulfamethoxazole (From BACTRIM) Allergy (Unknown, Verified 02/17/25 08:12) ITCHY/HIVES trimethoprim (From BACTRIM) Allergy (Unknown, Verified 02/17/25 08:12) ITCHY/HIVES milk Allergy (Verified 02/17/25 08:12) Stomach Upset metoclopramide (From REGLAN) Adverse Reaction (Unknown, Verified 02/17/25 08:12) AGITATION Do you need a note to return to daycare/school/sports/work: No HPI HPI Comments History of Present Illness Details History - The patient is a 54-year-old female pr esenting with symptoms of an upper respiratory infection. - Symptoms began two days ago with a sor e throat, headache, and pressure sensation in the throat. - Mild diarrhea was experienced yesterda y, not persistent throughout the day. - Reports mild cough, slight nasal conge stion, no significant fever or chills. - Nausea present, no vomiting. - No medication taken for symptoms. 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 - She denies fever, chills, CP, SOB, sic k contacts or travel. - She has been eating and drinking. - She has been taking Mucinex OTC. Physical Exam General: Cooperative, healthy appearing, comfortable and no acute distress Orientation/consciousness: Patient oriented x3 Ears: Hearing grossly normal bilaterally, external ears normal and TM's normal bilaterally Nose: Normal external nose present, normal nares present, and no nasal discharge present. Face and sinus: Sinuses nontender to palpation. Mouth: Normal oral and palatal mucosa present and moist mucous membranes noted. Throat: Tonsils normal. Uvula is midline. Posterior oropharynx with erythema and no exudates. Eyes: Appearance normal, both eyes and all related structures Neck: Normal visual inspection, full ROM. No lymphadenopathy noted. Respiratory: Clear to auscultation bilaterally. Normal respiratory effort, able to speak in complete sentences. No respiratory distress, not tachypneic, no tripod positioning and no use of accessory muscles. Cardiovascular: Regular rate and rhythm. Normal S1 and S2 Skin: No rashes or lesions noted Patient was informed and verbally consented to the use of an ambient scribe for clinic note documentation during this visit [facility] Medical History (Updated 01/05/25 @ 00:00 by Background Daemon) Urinary incontinence Post-nasal drip Cough Cervicalgia Vertigo Sprain of left medial ankle joint Hordeolum external Dizziness Migraine Tubular adenoma of colon Calcium oxalate crystals in urine Varicose veins of legs Heart palpitations Multiple pigmented nevi Mild carpal tunnel syndrome of right wrist Annual physical exam Chronic idiopathic constipation Tachycardia Shoulder pain, bilateral Upper abdominal pain Pre-op examination SOB (shortness of breath) Mass of left upper extremity Left arm swelling Laceration of left hand Lightheadedness Otitis media Otitis externa Bilateral hand numbness Upper respiratory infection Low back pain Breast cancer screening by mammogram Thyroid nodule Oropharyngeal dysphagia UTI (urinary tract infection) Right kidney stone COVID-19 Chest pain Delayed gastric emptying Daytime sleepiness Snoring Migraine Unspecified Eustachian tube disorder, left ear Acute pharyngitis Urgency of micturition Abdominal pain Dysuria Diarrhea Hematuria Acute conjunctivitis of left eye Wound of right leg Abdominal cramping Allergic conjunctivitis Nephrolithiasis Colitis Interstitial cystitis Chronic cough COVID-19 long hauler COVID-19 Elevated lipase Pain in both knees Vaginal itching Suprapubic pain Vaginal spotting Hematuria Frequency of micturition Myalgia Post-vaccination reaction Palpitations Bilateral lower extremity pain Hearing deficit Frequency of micturition Toe swelling Toe pain, right Vitamin B12 deficiency Scalp cyst Vitamin D deficiency GERD (gastroesophageal reflux disease) Multiple thyroid nodules Lateral meniscal tear Restrictive lung disease Benign hematuria Hemorrhoids Irritable bowel syndrome Cervical disc herniation Impaired glucose tolerance Hypercholesterolemia Erosive esophagitis Surgical History Hx of colonoscopy H/O esophagogastroduodenoscopy S/P excision of lipoma Hx of tubal ligation History of lumpectomy of left breast Family History Father Skin cancer Mother Skin cancer High blood pressure Heart problem Maternal Grandfather Skin cancer Cancer FH: prostate cancer Brother Schizophrenia Other CVA (cerebral vascular accident) Mental health problem Social History Household Members: None Housing: Apartment Alcohol intake: never Patient Tobacco Use Status: Former Tobacco user Tobacco use type: Cigarette Years Smoked: quit 2007 e-Cigarette/Vaping Use: Never Used Second Hand Smoke Exposure: Yes Patient : No service: No Current occupational status: employed 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 Current occupational exposures/hazards: No Cognitive needs: No Hearing needs: No Vision needs: No Review of Systems Const All systems reviewed & are unremarkable except as noted in HPI and below Physical Exam Vital Signs: Last Vital Signs Temp 98.7 F 02/17/25 08:03 Pulse 98 02/17/25 08:03 BP 112/86 02/17/25 08:03 Pulse Ox 96 02/17/25 08:03 Oxygen Delivery Method Room Air 02/17/25 08:03 BMI result Body Mass Index 26.0 Assessment & Plan Assessment & Plan (1) Sore throat: Code(s): J02.9 - Acute pharyngitis, unspecified Plan Most likely strep vs flu vs viral illness vs covid Rapid strep in the office was negative Plan - Tests for influenza, COVID-19, and RSV conducted to rule out viral infections. - Rapid strep test ordered to exclude streptococcal pharyngitis. - Prescribed decongestant and Flonase spray for nasal congestion and ear discomfort. - Cough medicine prescribed for throat irritation. - Advised rest and to avoid work to prevent spreading illness. - VSS, pt well appearing Orders: Orders SARS-CoV2/FLU/RSV Today R09.89 - Other specified symptoms and signs involving the circulatory and respiratory systems AMB Rapid Strep Screen Today Z13.9 - Encounter for screening, unspecified Medications: New cetirizine-pseudoephedrine 5-120 mg ER 1 tab PO BID 14 tabs 0RF 7 days benzonatate 100 mg PO bid-tid PRN 21 caps 0RF Cough 7 days Coding Level of Care Code Est Pt Level 4 (49024) Diagnoses Sore throat J02.9
== END 2025-02-17 08:42 | disposition home or self-care (01) ==
PROVIDERS: PCP Internal Medicine; Visit Provider Physician Assistant Medical
DX: Z13.9 Encounter for screening, unspecified (principal); J02.9 Acute pharyngitis, unspecified

== ENCOUNTER 2025-02-19 07:06 | Outpatient (REF) | payer OTHER, SELFPAY ==
--- OUTSIDE RECORDS SUMMARY | 2025-02-19 07:08 | XMS_ITS | Clinical Summary ---
Author Organization [facility] Address [address] [place] [address] Phone Care Team Providers Care Corncob Pipe Manufacturing Supervisor Name Role Phone Gigi Barrow MD Primary Care Provider [phone] Allergies Active Allergy Reactions Criticality Noted Date [...] GI. We requested her US results from [facility], but they will not fax for 48 [...] Encounters Date Type Department Care Team Description 02/17/2025 [facility] [address] [place] [address] Luly Brown DO 02/15/2025 2:00 PM EDT Procedure visit Obstetrics & Gynecology - [facility] [address] [place] [address] Luly Brown DO Post-menopausal bleeding (Primary Dx); Endometrial polyp 01/06/2025 Telephone Obstetrics & [address] [phone] Yasmeen Price RN 01/05/2025 11:00 AM EDT Office Visit Obstetrics & Gynecology [address] [phone] Graciela Rodriguez CNM Post-menopausal bleeding [...] 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 Not on file Not [...] Care Team (Late st Contact Info) Description 04/05/2025 2:20 PM EDT Consult Obstetrics and Gynecology [address] [phone] Lucy Horton PA [address] [place] [address] 04/20/2025 9:15 AM EDT Hospital Encounter [facility] Main OR [address] [place] [phone] Luly Brown, DO [address] [place] [address] 04/20/2025 9:15 AM EDT - 04/20/2025 10:45 AM EDT Surgery [facility] Main OR [address] [place] [phone] Luly Brown, [address] [place] [address] HYSTEROSCOPY with D&C [12464 (CPT )] Scheduled Procedures Name Priority Associated [...] of Health Screening 07/06/2022 COVID-19 Vaccine ( - 2023- season) 2024 12/13/2020, 11/15/2020 Depression Screening 07/28/2024 [...] DIAGNOSTIC BILAT Routine 08/25/2024 3:11 PM EST HM HPV Routine 10/21/2023 HM HEPATITIS C SCREENING Routine 10/21/2023 LIPID PANEL Routine 02/26/2012 HM COLONOSCOPY Routine 04/26/2011 from Last 3 Months or Most Recently Relevant to Health Maintenance Results * Thyroid stimulating hormone with reflex to free t4 and free t3 (01/07/2025 12:48 PM EDT) TSH 1.54 0.40 - 4.00 mcIU/mL LAB CHEMISTRY METHOD 01/07/2025 5:55 PM EDT [facility] Blood Venous blood specimen / Unknown Venipuncture / Unknown 01/07/2025 12:48 PM EDT 01/07/2025 12:48 PM EDT [facility]OD [facility] Final Re sult [facility] [address] [place] [address], * Cancer antigen 125 (01/07/2025 12:48 PM EDT) Pathologist [facility] CA 125 7.9 <35.0 unit/mL LAB CHEMISTRY METHOD 01/07/2025 6:24 PM EDT [facility] Blood Venous blood specimen / Unknown Venipuncture / Unknown 01/07/2025 12:48 PM EDT 01/07/2025 12:48 PM EDT Narrative [facility] - 01/07/2025 6:24 PM EDT The Siemens Advia Centaur Chemiluminescent Immunoassay is used. Results obtained with different assay methods or kits cannot be used interchangeably. Results cannot be interpreted as absolute evidence of the presence or absence of malignant disease. [facility] LAB BLOOD ORDERABLES Final Re sult [facility] [address] [place] [address], [place] [phone] * Trichomonas vaginalis antigen (01/05/2025 11:17 AM EDT) Pathologist [facility] Trichomonas vaginalis Negative Negative 01/05/2025 12:30 PM EDT [facility] Swab Vaginal structure / Unknown Non-blood Collection / Unknown 01/05/2025 11:17 AM EDT 01/05/2025 12:07 PM EDT Graciela Rodriguez [facility] MICROBIOLOGY - GENERAL OR DERABLES Final Result [facility] [address] [place] [address], [place] [phone] * Chlamydia trachomatis and Neisseria gonorrhoeae molecular study (01/05/2025 11:17 AM EDT) Neisseria gonorrhoeae PCR Negative Negative LAB MOLECULAR DIAGNOSTICS METHOD 01/05/2025 3:58 PM EDT [facility] Chlamydia trachomatis PCR Negative Negative LAB MOLECULAR DIAGNOSTICS METHOD 01/05/2025 3:58 PM EDT [facility] Swab Cervix uteri structure / Unknown Non-blood Collection / Unknown 01/05/2025 11:17 AM EDT 01/05/2025 12:07 PM EDT Graciela Rodriguez [facility] MICROBIOLOGY - GENERAL OR DERABLES Final Result Performing Organization Address City/[facility]/ZIP Co de Phone Number [facility] [address] [place] [address], [place] [phone] * Wet prep, genital (01/05/2025 11:17 AM EDT) Clue Cells, Wet Prep Negative Negative 01/05/2025 12:30 PM EDT [facility] Yeast, Wet Prep Negative Negative 01/05/2025 12:30 PM EDT [facility] Trichomonas, Wet Prep Indeterminate Negative 01/05/2025 12:30 PM EDT [facility] Comment:Refer to Trichomonas antigen. Swab Vaginal structure / Unknown Non-blood Collection / Unknown 01/05/2025 11:17 AM EDT 01/05/2025 12:07 PM EDT Graciela Rodriguez CNM LAB MICROBIOLOGY - GENERAL OR DERABLES Final Result [facility]UPALI IZAGUIR[facility] [place] ([facility]) [facility] [address] [place] [address], * MG Mammo Digital Diagnostic bilat (08/25/2024 3:11 PM EST) Anatomical Region Laterality Modality Breast Bilateral Mammography Historical Provider IMG BI PROCEDURES Final R esult * Cervical Cancer Screening: HPV (10/21/2023) [facility] Cervical Cancer Screening: HPV Negative,A bstracted [facility] Provider HEALTH MAINTENANCE Final Result * Hepatitis C Screening (10/21/2023) [facility] Hepatitis C Screening Abstracted Historical Provider HEALTH MAINTENANCE Final Result * Lipid panel (02/26/2012) [facility] LDL/HDL Ratio 0 Comment:no interpetation,Abs tracted Triglycerides 0 mg/dL Comment:no interpetation,Abs tracted Cholesterol 0 mg/dL Comment:no interpetation,Abs tracted HDL 0 mg/dL Comment:no interpetation,Abs tracted LDL Cholesterol 0 mg/dL Comment:no interpetation,Abs tracted Blood Venous blood specimen / Unknown Historical Provider LAB BLOOD ORDERABLES Joy l Result * Colonoscopy (04/26/2011) [facility] Colonoscopy no interpreta tion,Abstr acted Anatomical Region Laterality Modality Other Historical Provider HEALTH MAINTENANCE Final Result from Last 3 Months or Most Recently Relevant to Health Maintenance Insurance [facility] Care Teams Corncob Pipe Manufacturing Supervisor Relationship Specialty Start Date End Date Gigi Barrow MD [address] [place] [address] [address] [facility] [place] [address] PCP - General Internal Medicine 02/20/16
--- OUTSIDE RECORDS SUMMARY | 2025-02-19 07:08 | XMS_ITS | Patient Health Record ---
Author Organization [facility] Address [address] [place] [address] Care Team Providers Care Wet Room Supervisor Name Role Phone Bill Miranda Unavailable [phone] Reason For Referral No Information Plan Of Treatment No Information
--- OUTSIDE RECORDS SUMMARY | 2025-02-19 07:08 | XMS_ITS | Clinical Summary ---
Author Organization [facility] Address [address] [place] [address] Phone Care Team Providers Care Sales And Marketing Director Name Role Phone Gigi Barrow MD Primary Care Provider [phone] Allergies Active Allergy Reactions Criticality Noted Date [...] Medical [place] [id number] [facility] [place] [address] [place] [address] ACO ACO ACO [facility] Care Teams Sales And Marketing Director Relationship Specialty Start Date End Date Gigi Barrow MD [address] [place] [address] PCP - General Internal Medicine 06/17/21 Additional Source Comments The information contained in this document represents components of the legal health record. It is not the complete legal health record.[facility]
[2025-02-19 07:49] LABS: Appearance Urine Clear; Glucose Urine UA Negative (Negative); PH 6.0 (5.0-9.0); Specific Gravity - Urine 1.020 (1.005-1.025); UMIC TRIGGER UACC YES
[2025-02-19 07:59] LABS: Hemoglobin A1C 153.8710 umol/L; Total Hemoglobin (HGBA1C) 3721.4223 umol/L
[2025-02-19 08:37] LABS: Alanine Aminotransferase 24 U/L (0-31); Albumin Level 4.3 g/dL (3.5-5.0); Alkaline Phosphatase 85 U/L (39-117); Anion Gap 11 (12-20); Aspartate Amino Transferase 21 U/L (5-31); Blood Urea Nitrogen 19 mg/dL (9-16); Calcium 9.3 mg/dL (8.4-10.2); Carbon Dioxide 25 mmol/L (22-29); Chloride 108 mmol/L (96-108); Cholesterol 228 mg/dL (<200); Estimated Glomerular Filt Rate > 60; HDL Cholesterol 50 mg/dL (>40); Potassium 4.1 mmol/L (3.3-5.1); Sodium 140 mmol/L (135-145); Total Protein 7.5 g/dL (6.5-8.0); Triglycerides 267 mg/dL (<150)
[2025-02-19 08:53] LABS: Free T4 (Free Thyroxine) 0.95 ng/dL (0.71-1.85); Thyroid Stimulating Hormone 1.22 uIU/mL (0.32-4.0)
== END 2025-02-19 07:07 | disposition home or self-care (01) ==
LOC: HO.LAB 07:06
PROVIDERS: PCP Internal Medicine; Visit Provider Internal Medicine
DX: E78.00 Pure hypercholesterolemia, unspecified (principal); R30.0 Dysuria; R73.02 Impaired glucose tolerance (oral); R39.9 Unspecified symptoms and signs involving the genitourinary system
CPT/HCPCS: 36415; 80053; 80061; 81001; 83036; 84439; 84443

== ENCOUNTER 2025-02-21 13:22 | Outpatient (AMB) | payer OTHER, SELFPAY ==
[2025-02-21 13:27] VITALS: BP 98/70; PULSE 83; RESP 18; TEMP 36.3; O2SAT 96; BMI 26.0
--- NOTE | 2025-02-21 13:27 | A.OFFPC_ITS ---
Vital Signs 02/21/25 13:27 Height 5 ft 5 in Weight 156 lb 4 oz BMI 26.0 BP 98/70 Blood Pressure Location Lt brachial Position Sitting Respiration 18 Pulse 83 Pulse Source Pulse Oximeter Temp 97.3 F Temp Source Temporal Artery Scan Pulse Oximetry (%) 96 Oxygen Delivery Method Room Air Intake Visit Reasons: Annual Exam Neighborhood Planner Required: No Accompanied by: Self / Same As Patient Allergies latex (Latex) Allergy (Mild, Verified 02/21/25 13:27) SWELLING/ITCHING Sulfa (Sulfonamide Antibiotics) Allergy (Mild, Verified 02/21/25 13:27) SWELLING/ITCHING, pruritis sulfamethoxazole (From BACTRIM) Allergy (Unknown, Verified 02/21/25 13:27) ITCHY/HIVES trimethoprim (From BACTRIM) Allergy (Unknown, Verified 02/21/25 13:27) ITCHY/HIVES milk Allergy (Verified 02/21/25 13:27) Stomach Upset metoclopramide (From REGLAN) Adverse Reaction (Unknown, Verified 02/21/25 13:27) AGITATION Medication List - Last Reconciled 02/21/25 by Gigi Barrow MD albuterol sulfate 90 mcg/actuation (Ventolin HFA) 1 puff inhalation QID PRN atorvastatin 20 mg PO DAILY baclofen 5 mg PO BEDTIME MDD 10mg benzonatate 100 mg PO bid-tid PRN 7 days blood pressure monitor (Blood Pressure Kit) As directed cetirizine-pseudoephedrine 5-120 mg ER 1 tab PO BID 7 days cholecalciferol (vitamin D3) 50 mcg PO DAILY dicyclomine 20 mg PO QID PRN 90 days fenofibrate 160 mg PO DAILY fluticasone propionate 50 mcg/actuation (Flonase Allergy Relief) 2 sprays intranasal DAILY Lactobacillus acidophilus 100 mg PO DAILY magnesium oxide 400 mg PO DAILY meclizine 25 mg PO BID PRN multivitamin 1 tab PO DAILY pantoprazole 40 mg PO DAILY Tobacco use date assessed: 02/21/25 Dental Screening Dental Screen Date: 02/21/25 Did you have a dental visit in the last 12 months?: Yes Did you have a dental problem in the last 6 months where you did not have access to dental care?: No Was dental information given to patient?: Patient has dentist [facility] Medical History (Updated 02/21/25 @ 14:06 by Gigi Barrow MD) SOB (shortness of breath) Annual physical exam Urinary incontinence Post-nasal drip Cough Cervicalgia Vertigo Sprain of left medial ankle joint Hordeolum external Dizziness Migraine Tubular adenoma of colon Calcium oxalate crystals in urine Varicose veins of legs Heart palpitations Multiple pigmented nevi Mild carpal tunnel syndrome of right wrist Chronic idiopathic constipation Tachycardia Shoulder pain, bilateral Upper abdominal pain Pre-op examination Mass of left upper extremity Left arm swelling Laceration of left hand Lightheadedness Otitis media Otitis externa Bilateral hand numbness Upper respiratory infection Low back pain Breast cancer screening by mammogram Thyroid nodule Oropharyngeal dysphagia UTI (urinary tract infection) Right kidney stone COVID-19 Chest pain Delayed gastric emptying Daytime sleepiness Snoring Migraine Unspecified Eustachian tube disorder, left ear Acute pharyngitis Urgency of micturition Abdominal pain Dysuria Diarrhea Hematuria Acute conjunctivitis of left eye Wound of right leg Abdominal cramping Allergic conjunctivitis Nephrolithiasis Colitis Interstitial cystitis Chronic cough COVID-19 long hauler COVID-19 Elevated lipase Pain in both knees Vaginal itching Suprapubic pain Vaginal spotting Hematuria Frequency of micturition Myalgia Post-vaccination reaction Palpitations Bilateral lower extremity pain Hearing deficit Frequency of micturition Toe swelling Toe pain, right Vitamin B12 deficiency Scalp cyst Vitamin D deficiency GERD (gastroesophageal reflux disease) Multiple thyroid nodules Lateral meniscal tear Restrictive lung disease Benign hematuria Hemorrhoids Irritable bowel syndrome Cervical disc herniation Impaired glucose tolerance Hypercholesterolemia Erosive esophagitis Surgical History Hx of colonoscopy H/O esophagogastroduodenoscopy S/P excision of lipoma Hx of tubal ligation History of lumpectomy of left breast Family History Father Skin cancer Mother Skin cancer High blood pressure Heart problem Maternal Grandfather Skin cancer Cancer FH: prostate cancer Brother Schizophrenia Other CVA (cerebral vascular accident) Mental health problem Social History Household Members: None Housing: Apartment Alcohol intake: never Patient Tobacco Use Status: Former Tobacco user Tobacco use type: Cigarette Years Smoked: quit 2007 e-Cigarette/Vaping Use: Never Used Second Hand Smoke Exposure: Yes service: No Current occupational status: employed 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 1. Little interest or pleasure in doing things: not at all 2. Feeling down, depressed, or hopeless: several days 3. Trouble falling or staying asleep, or sleeping too much: not at all 4. Feeling tired or having little energy: nearly every day 5. Poor appetite or overeating: not at all 6. Feeling bad about yourself - or that you are a failure or have let yourself or your family down: not at all 7. Trouble concentrating on things, such as reading the newspaper or watching television: several days 8. Moving or speaking so slowly that other people could have noticed. Or the opposite - being so fidgety or restless that you have been moving around a lot more than usual: not at all 9. Thoughts that you would be better off or of hurting yourself in some way: not at all Total score: 5 Depression Screening Interpretation: Positive Depression Screening Done: Yes Source: Developed by Drs. Bill Morris, Chiquis Webster, Duke Madera and colleagues, with an educational claudia from [employer]. Thrive Questionnaire Date Thrive assessed: 02/21/25 I am a: Patient What is your living situation today?: I have a steady place to live Within the past 12 months, did the food you bought not last and you didn't have the money to get more?: Never true Within the past 12 months, did you worry whether your food would run out before you got money to buy more?: Never true Do you have trouble paying for medicines?: No Do you have trouble getting transportation to medical appointments?: No Do you have trouble paying your heating and electricity bill?: No Do you have trouble taking care of your child, family member or friend?: No Do you have trouble with day-to-day activities such as bathing, preparing meals, shopping, managing finances, etc.?: No Are you currently unemployed and looking for a job?: No Are you interested in more education?: No Please select the resources that you would like help with: None Currently or been in a relationship where the following occur: No concerns reported THRIVE Score: 0 AUDIT C Alcohol Use Questionnaire (AUDIT-C) 1. How often do you have a drink containing alcohol?: Never 3. How often do you have six or more drinks on one occasion?: Never Total Score: 0 Score Reviewed/Action Taken: No PACO-7 AMB Questionnaire PACO-7 Date PACO - 7 assessed: 02/21/25 Feeling nervous, anxious, or on edge: 2 = More than half the days Not being able to stop or control worryin = Nearly every day Worrying too much about different things: 3 = Nearly every day Trouble relaxin = Several days Being so restless that it is hard to sit still: 0 = Not at all Becoming easily annoyed or irritable: 1 = Several days Feeling afraid as if something awful might happen: 0 = Not at all Total PACO-7 score (0-4 normal; 5-9 mild; 10-14 moderate; 15-21 severe): 10 Source: Developed by Drs. Bill Morris, Chiquis Webster, Duke Madera and colleagues, with an educational claudia from [employer]. Review of Systems Const Denies poor appetite and Denies weakness Eyes Denies no additional complaints ENT Reports Normal hearing present, Denies dizziness, Denies nasal congestion, Denies tinnitus and Denies sore throat Card Denies chest pain, Denies syncope, Denies rapid heart rate and Denies dyspnea Resp Denies cough and Denies dyspnea GI Denies change in stool character, Reports constipation, Denies diarrhea, Denies nausea and Denies vomiting Denies urinary frequency, Denies difficulty voiding and Denies dysuria Neuro Reports Normal hearing present, Denies confusion, Denies dizziness, Denies syncope and Denies weakness Psych Denies confusion Physical exam (Primary Care) Vital Signs: Last Vital Signs Temp 97.3 F 02/21/25 13:27 Pulse 83 02/21/25 13:27 Resp 18 02/21/25 13:27 BP 98/70 02/21/25 13:27 Pulse Ox 96 02/21/25 13:27 Oxygen Delivery Method Room Air 02/21/25 13:27 BMI result Body Mass Index 26.0 Tobacco/Smoking Status: Tobacco use Status Tobacco use date assessed 02/21/25 02/21/25 13:39 Patient Tobacco Use Status Former Tobacco user 02/21/25 13:39 Tobacco use type Cigarette 02/21/25 13:39 e-Cigarette/Vaping Use Never Used 02/21/25 13:39 PHQ-9: PHQ-9 Score PHQ-9: Total score 5 02/21/25 13:50 Depression Screening Interpretation: Positive Thrive Assessment: Date of Thrive Assessment Date Thrive assessed 02/21/25 02/21/25 13:39 Currently or been in a relationship where the following occur: No concerns reported Const General: No confusion Orientation/consciousness: No confusion HENMT Head: Yes normocephalic Ears: external ears normal and TM's normal bilaterally Face and sinus: Yes normal facial exam Mouth: moist mucous membranes Throat: Yes tonsils normal Eyes Conjunctivae: conjunctivae normal Pupils: Equal, round and reactive pupils present and Pupil accommodation reflex normal Direct Ophthalmoscopy: normal light reflex Neck Neck: No lymphadenopathy Thyroid: Thyroid normal Chest Chest palpation & inspection: normal inspection of the chest Resp Effort & Inspection: normal respiratory effort and no audible wheezes Auscultation: clear to auscultation bilaterally, no crackles, no wheezes and lung sounds not diminished Cardio Rate: regular rate Rhythm: regular rhythm Peripheral pulses: radial pulses present and dorsalis pedis present GI Palpation (GI): no masses Auscultation: normal bowel sounds and normoactive bowel sounds Rectal Exam - Female: deferred Skin General skin exam: no rashes or lesions noted Rashes: no rashes Neuro General: No confusion Cranial nerves: Yes Equal, round and reactive pupils present and Yes Normal hearing present Cognition (Neuro): normal cognition Gait exam (Neuro): Normal gait present Motor exam (neuro): 5/5 motor strength present throughout Deep tendon reflexes (DTR's): Right brachioradialis reflex intensity grade: 2+, Left brachioradialis reflex intensity grade: 2+, Right patellar reflex intensity grade: 2+ and Left patellar reflex intensity grade: 2+ Extrem General: No edema Coding Level of Care Code Est Pt Prev Care 40-64y(45071) Diagnoses Intractable chronic migraine without aura and without status migrainosus G43.719 Intractability: intractable Migraine type: chronic migraine (15 or more days per month) without aura Status migrainosus presence: without status migrainosus Annual physical exam Z00.00 Gastroesophageal reflux disease without esophagitis K21.9 Esophagitis presence: without esophagitis Impaired glucose tolerance R73.02 Hypercholesterolemia E78.00 Generalized anxiety disorder F41.1 SOB (shortness of breath) R06.02 Assessment & Plan Assessment & Plan (1) Migraine: Code(s): G43.909 - Migraine, unspecified, not intractable, without status migrainosus Category: Medical Qualifiers: Intractability: intractable Migraine type: chronic migraine (15 or more days per month) without aura Status migrainosus presence: without status migrainosus Qualified Code(s): G43.719 - Chronic migraine without aura, intractable, without status migrainosus Plan: Patient is advised to eat healthy, keep well hydrated, keep active and have adequate sleep. (2) Annual physical exam: Code(s): Z00.00 - Encounter for general adult medical examination without abnormal findings Category: Medical (3) GERD (gastroesophageal reflux disease): Code(s): K21.9 - Gastro-esophageal reflux disease without esophagitis Category: Medical Qualifiers: Esophagitis presence: without esophagitis Qualified Code(s): K21.9 - Gastro-esophageal reflux disease without esophagitis Plan: Avoid the foods that causes that usually spicy foods, tomato products, juices, coffee, soda and foods that your sensitive to. After eating do not lie down, allow 3-4 hours before in lie down. And keep the head of bed above 30 degrees to avoid the acid from going up. (4) Impaired glucose tolerance: Code(s): R73.02 - Impaired glucose tolerance (oral) Category: Medical Plan: Decrease the amount of carbohydrate intake, pasta, bread, rice and potatoes are all sugar and that is aside from all the sweet stuff, remember that fruits are good but they are Sweet also. (5) Hypercholesterolemia: Code(s): E78.00 - Pure hypercholesterolemia, unspecified Category: Medical Plan: Avoid fried foods, chicken skin, eggs, butter margarine, pastries and meat. Be it pork or beef they have a lot of cholesterol LDL goal of less than 130 and triglyceride of less than 150 patient is on fenofibrate (6) Generalized anxiety disorder: Comment: [facility] counseling Code(s): F41.1 - Generalized anxiety disorder Category: Medical Plan: continue with counseling and therapy (7) SOB (shortness of breath): Code(s): R06.02 - Shortness of breath Category: Medical Plan History of Present Illness The patient is a 54-year-old female presenting for a physical examination and management of chronic conditions. She has a history of migraine, interstitial cystitis, generalized anxiety disorder, gastroesophageal reflux disease (GERD), irritable bowel syndrome, impaired glucose tolerance, hypercholesterolemia, and erosive esophagitis. The patient was last seen in December 2024, and her mammogram was last performed in July 2024, with a colonoscopy in March 2024. She was seen in the urgent care center for a sore throat in January 2024, where she was diagnosed with pharyngitis. Her last blood work on January 03, 2025, showed normal blood count, electrolytes, renal function, and liver function. Hemoglobin A1c was 5.9, indicating impaired glucose tolerance, and cholesterol levels were elevated with triglycerides at 267 mg/dL. Urinalysis revealed hematuria without signs of infection. Health Maintenance - Mammogram last performed in July 2024 - Colonoscopy last performed in March 2024 - Blood work scheduled for three months to monitor glucose and cholesterol levels Social History - Denies alcohol consumption and smoking - Reports attending druze regularly - Reports feeling tired despite adequate sleep Review of Systems - General: Reports fatigue despite adequate sleep - Cardiovascular: Reports chest pain and dyspnea on exertion - Respiratory: Reports dyspnea on exertion - Gastrointestinal: Reports dysphagia and burping - Neurological: Denies syncope Physical Exam General: Cooperative, healthy appearing, comfortable, no acute distress and well developed Orientation: Patient oriented x3 Limitations: No limitations Head: Normal to inspection Ears: Hearing grossly normal bilaterally Nose: Normal external nose present Face and sinus: Normal facial exam Eyes: Appearance normal, both eyes and all related structures Neck: Normal visual inspection and Yes full ROM Respiratory: Normal respiratory effort and able to speak in complete sentences. Clear to auscultation bilaterally Cardiovascular: Regular rate and rhythm. Normal S1 and S2 GI: Normal to inspection. Soft to palpation and nontender Skin: No rashes or lesions noted Neuro: Patient oriented x3 Extremities: Normal to inspection Results - Labs: Hemoglobin A1c 5.9, elevated triglycerides at 267 mg/dL, normal blood count, electrolytes, renal, and liver function - Urinalysis: Hematuria without signs of infection Plan The patient will continue with current medications, including fenofibrate for hypercholesterolemia, and will be advised to maintain a healthy diet and exercise regularly to manage impaired glucose tolerance and hypercholesterolemia. Blood work will be repeated in three months to monitor glucose and cholesterol levels, and the patient will be encouraged to adhere to dietary recommendations to lower triglycerides. The patient will be referred to a manager of purchasing for further evaluation of respiratory symptoms, and a follow-up appointment will be scheduled to review the results of the blood work and any additional findings from the manager of purchasing. Patient was informed and verbally consented to the use of an ambient scribe for clinic note documentation during this visit. Discussion Notes I discussed with the patient the importance of maintaining a healthy diet and regular exercise to manage her impaired glucose tolerance and hypercholesterolemia. We reviewed her current medications, including fenofibrate, and the need for regular blood work to monitor her glucose and cholesterol levels. I also recommended a referral to a manager of purchasing for further evaluation of her respiratory symptoms and discussed the plan for follow-up a ppointments to review her progress. Patient Instructions - Continue taking fenofibrate as prescribed. - Maintain a healthy diet and exercise regularly. - Schedule and attend follow-up blood work in three months. - Follow up with a manager of purchasing for respiratory evaluation. Orders: Orders Complete Blood Count Auto Diff 3 Months E78.00 - Pure hypercholesterolemia, unspecified Comprehensive Met. Panel 3 Months E78.00 - Pure hypercholesterolemia, unspecified Ferritin 3 Months E78.00 - Pure hypercholesterolemia, unspecified Thyroid Stimulating Hormone 3 Months E78.00 - Pure hypercholesterolemia, unspecified IRON PROFILE 3 Months E78.00 - Pure hypercholesterolemia, unspecified Vitamin D 25-OH Total 3 Months E78.00 - Pure hypercholesterolemia, unspecified UA CC w/rflx Micro + Cult 3 Months E78.00 - Pure hypercholesterolemia, unspecified, R30.0 - Dysuria Free T4 (Free Thyroxine) 3 Months E78.00 - Pure hypercholesterolemia, unspecified Lipid Panel 3 Months E78.00 - Pure hypercholesterolemia, unspecified Reticulocyte Count 3 Months E78.00 - Pure hypercholesterolemia, unspecified Vitamin B12 and Folate 3 Months E78.00 - Pure hypercholesterolemia, unspecified Referrals Pulmonology Referral R06.02 - Shortness of breath Medications: New fexofenadine (Aurea Allergy) 180 mg PO DAILY 30 tabs 2RF R06.02 - Shortness of breath Refilled fluticasone propionate 50 mcg/actuation (Flonase Allergy Relief) administer into each nostril 2 sprays intranasal DAILY 16 grams 0RF R09.82 - Postnasal drip Discontinued cetirizine-pseudoephedrine 5-120 mg ER Discontinued Reason: Doctor's Order 1 tab PO BID 7 days 14 tabs 0RF
--- OUTSIDE RECORDS SUMMARY | 2025-02-21 14:05 | XMS_ITS | Patient Health Record ---
Author Organization [facility] Address [address] [place] [address] Care Team Providers Care Gym Teacher Name Role Phone Bill Miranda Unavailable [phone] Reason For Referral No Information Plan Of Treatment No Information
--- OUTSIDE RECORDS SUMMARY | 2025-02-21 14:05 | XMS_ITS | Clinical Summary ---
Author Organization [facility] Address [address] [place] [address] Phone Care Team Providers Care Rail Grinder Name Role Phone Gigi Barrow MD Primary Care Provider [phone] Allergies Active Allergy Reactions Criticality Noted Date [...] Medical [place] [id number] [facility] ACO [place] [address] [address] ACO ACO ACO ACO [facility] ACO [facility] ACO Care Teams Rail Grinder Relationship Specialty Start Date End Date Gigi Barrow MD [address] [place] [address] PCP - General Internal Medicine 06/17/21 Additional Source Comments The information contained in this document represents components of the legal health record. It is not the complete legal health record.[facility]
--- OUTSIDE RECORDS SUMMARY | 2025-02-21 14:05 | XMS_ITS | Clinical Summary ---
Author Organization [facility] Address [address] [place] [address] Phone Care Team Providers Care Student Officer Name Role Phone Gigi Barrow MD Primary Care Provider [phone] Allergies Active Allergy Reactions Criticality Noted Date [...] We requested her [place] results [place] [facility] but they will not fax for 48 [...] Description 02/17[facility]20[facility] [address] [place] [facility] [place] [address] Luly Brown DO 02/15/2025 2:00 PM EDT Procedure visit Obstetrics & [facility]necology - [facility] [address] [place] [address] Luly Brown DO Post-menopausal bleeding (Primary Dx); Endometrial polyp 01/06/2025 Telephone Obstetrics & [address] [address] Yasmeen Price RN 01/05/2025 11:00 AM EDT Office Visit Obstetrics & Gynecology [address] [address] Graciela Rodriguez CNM Post-menopausal bleeding [...] 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 Not on file Not [...] 2:20 PM EDT Consult Obstetrics and Gynecology [address] [phone] Lucy Horton PA [address] [place] [address] 04/20/2025 9:15 AM EDT Hospital Encounter [facility] [place] [address] [place] [phone] Luly Brown, DO [address] [place] [address] 04/20/2025 9:15 AM EDT - 04/20/2025 10:45 AM EDT Surgery [facility] [place] [address] [place] [phone] Luly Brown, [address] [place] [address] HYSTEROSCOPY with D&C [62771 (CPT )] Scheduled Procedures Name Priority Associated [...] LAB CHEMISTRY METHOD 01/07/2025 5:55 PM EDT [facility] Blood Venous blood specimen / Unknown Venipuncture / Unknown 01/07/2025 12:48 PM EDT 01/07/2025 12:48 PM EDT [facility] Final Re sult [facility] [address] [place] [address], * Cancer antigen 125 (01/07/2025 12:48 PM EDT) Pathologist [facility] 125 7.9 <35.0 unit/mL LAB CHEMISTRY METHOD 01/07/2025 6:24 PM EDT [facility] Blood Venous blood specimen / Unknown Venipuncture / Unknown 01/07/2025 12:48 PM EDT 01/07/2025 12:48 PM EDT Narrative [facility] - 01/07/2025 6:24 PM EDT The Siemens Advia Centaur Chemiluminescent Immunoassay is used. Results obtained with different assay methods or kits cannot be used interchangeably. Results cannot be interpreted as absolute evidence of the presence or absence of malignant disease. [facility] LAB BLOOD ORDERABLES Final Re sult [facility] [address] [place] [address], [place] [phone] * Trichomonas vaginalis antigen (01/05/2025 11:17 AM EDT) Pathologist [facility] Trichomonas vaginalis Negative Negative 01/05/2025 12:30 PM EDT [facility] Swab Vaginal structure / Unknown Non-blood Collection / Unknown 01/05/2025 11:17 AM EDT 01/05/2025 12:07 PM EDT Graciela Rodriguez [facility] MICROBIOLOGY - GENERAL OR DERABLES Final Result [facility] [address] [place] [address], [place] [phone] * Chlamydia trachomatis and Neisseria gonorrhoeae molecular study (01/05/2025 11:17 AM EDT) Neisseria gonorrhoeae PCR Negative Negative LAB MOLECULAR DIAGNOSTICS METHOD 01/05/2025 3:58 PM EDT [facility] Chlamydia trachomatis PCR Negative Negative LAB MOLECULAR DIAGNOSTICS METHOD 01/05/2025 3:58 PM EDT [facility] Swab Cervix uteri structure / Unknown Non-blood Collection / Unknown 01/05/2025 11:17 AM EDT 01/05/2025 12:07 PM EDT Graciela Rodriguez [facility] MICROBIOLOGY - GENERAL OR DERABLES Final Result Performing Organization Address City/[facility]/ZIP Co de Phone Number [facility] [address] [place] [address], [place] [phone] * Wet prep, genital (01/05/2025 11:17 AM EDT) Clue Cells, Wet Prep Negative Negative 01/05/2025 12:30 PM EDT [facility] Yeast, Wet Prep Negative Negative 01/05/2025 12:30 PM EDT [facility] Trichomonas, Wet Prep Indeterminate Negative 01/05/2025 12:30 PM EDT [facility] Comment:Refer to Trichomonas antigen. Swab Vaginal structure / Unknown Non-blood Collection / Unknown 01/05/2025 11:17 AM EDT 01/05/2025 12:07 PM EDT Graciela Rodriguez CNM LAB MICROBIOLOGY - GENERAL OR DERABLES Final Result [facility] [address] [place] [address], * MG Mammo Digital Diagnostic bilat (08/25/2024 3:11 PM EST) Anatomical Region Laterality Modality Breast Bilateral Mammography Historical Provider IMG BI PROCEDURES Final R esult * Cervical Cancer Screening: HPV (10/21/2023) [facility] Cervical Cancer Screening: HPV Negative,A bstracted [facility] Provider HEALTH MAINTENANCE Final Result * Hepatitis C Screening (10/21/2023) [facility] Hepatitis C Screening Abstracted Historical Provider HEALTH MAINTENANCE Final Result * Lipid panel (02/26/2012) [facility] LDL/HDL Ratio 0 Comment:no interpetation,Abs tracted Triglycerides 0 mg/dL Comment:no interpetation,Abs tracted Cholesterol 0 mg/dL Comment:no interpetation,Abs tracted HDL 0 mg/dL Comment:no interpetation,Abs tracted LDL Cholesterol 0 mg/dL Comment:no interpetation,Abs tracted Blood Venous blood specimen / Unknown Historical Provider LAB BLOOD ORDERABLES Joy l Result * Colonoscopy (04/26/2011) [facility] Colonoscopy no interpreta tion,Abstr acted Anatomical Region Laterality Modality Other Historical Provider HEALTH MAINTENANCE Final Result from Last 3 Months or Most Recently Relevant to Health Maintenance Insurance [facility] Care Teams Student Officer Relationship Specialty Start Date End Date Gigi Barrow MD [address] [place] [address] [address] [facility] [place] [address] PCP - General Internal Medicine 02/20/16
== END 2025-02-21 14:14 | disposition home or self-care (01) ==
LOC: HO.HMCH 13:23
PROVIDERS: PCP Internal Medicine; Visit Provider Internal Medicine
DX: G43.719 Chronic migraine without aura, intractable, without status migrainosus (principal); Z00.00 Encounter for general adult medical examination without abnormal findings; K21.9 Gastro-esophageal reflux disease without esophagitis; R73.02 Impaired glucose tolerance (oral); E78.00 Pure hypercholesterolemia, unspecified; F41.1 Generalized anxiety disorder; R06.02 Shortness of breath

== ENCOUNTER → 2025-02-21 13:22 | Outpatient (BNVA) | payer OTHER, SELFPAY | PROVIDERS: PCP Internal Medicine; Visit Provider Internal Medicine | DX: Z00.00 Encounter for general adult medical examination without abnormal findings (principal); G43.719 Chronic migraine without aura, intractable, without status migrainosus; K21.9 Gastro-esophageal reflux disease without esophagitis; R73.02 Impaired glucose tolerance (oral); E78.00 Pure hypercholesterolemia, unspecified; F41.1 Generalized anxiety disorder; R06.02 Shortness of breath; R09.82 Postnasal drip | CPT/HCPCS: 99396 ==

== ENCOUNTER 2025-05-02 12:50 | Outpatient (AMB) | payer OTHER, SELFPAY ==
--- OUTSIDE RECORDS SUMMARY | 2025-04-30 10:55 | XMS_ITS | Encounter Summary ---
Author Organization [facility] Address [address] [address] Phone Care Team Providers Care Flatwork Folder Name Role Phone Gigi Barrow MD Primary Care Provider [phone] Reason for Visit * Reason Comments Vaginal Bleeding Shortness of Breath Fatigue Encounter Details Date Type Department Care Team ([facility] st Contact Info) Description 04/30/2025 10:55 AM EDT - 04/30/2025 2:38 PM EDT Emergency [facility] [address] [place] [address] Paul Alanis MD [address] [place] [address] [email or web address] Discharge Disposition: Home or Self Care Social History Tobacco Use Types Packs/Day Years Used Date Smoking Tobacco: Never Smokeless Tobacco: Never Tobacco Cessation:Counseling Given: Not Answered Alcohol Use Standard Drinks/Week Comments Not Currently 0 (1 standard drink = 0.6 oz pur e alcohol) Education Answer Date Recorded Are you interested in more education? Not on juan j e 11/23/2022 Are you concerned about learning? Not on file 11/23/2022 No 11/23/2022 No 11/23/2022 Food Answer Date Recorded Within the past 6 months we worried whether our food would run out before we got money to buy more. Never True 04/30/2025 Within the past 6 months the food we bought just didn't last and we didn't have enough money to get more. Never True Residential Stability Answer Date Recor ded What is your housing situation today? I have yrn hooks 04/30/2025 How many times have you move d in the past 12 months? Zero (I did not move) 04/30/2025 Paying for Meds Answer Date Recorded Do you have trouble paying for medicines? No 04/30/2025 Paying Utility Bills Answer Date Record ed Do you have trouble paying your heating or elect ricity bill? No 04/30/2025 Transportation Answer Date Recorded Has the lack of transportati on kept you from medical appointments or from getting medications? No 04/30/2025 Digital Access Answer Date Recorded No 04/30/2025 Yes 04/30/2025 Do you have reliable internet access at home? Ye s 04/30/2025 Do you have a device (e.g., phone, tablet, computer) with a working camera? Yes 04/30/2025 Intimate Partner Violence Answer Date R ecorded Are you denied basic needs s uch as food, clothing, or medical care? No 04/30/2025 In the past 12 months have y ou been in a relationship with a person who hurts, threatens, or tries to control you? No 04/30/2025 Are you denied basic needs s uch as food, clothing, or medical care? No 04/30/2025 In the past 12 months have y ou been in a relationship with a person who hurts, threatens, or tries to control you? No 04/30/2025 Comments Unknown Sex and Gender Information Value Date Recorded Sex Assigned at Female 06/17/2021 5:22 PM EST Legal Sex Female 4:54 PM EST Gender Identity Female 06/17/2021 5:22 PM EST Sexual Orientation Straight 04/30/2025 11 :38 AM EDT documented as of this encounter Last Filed Vital Signs Vital Sign Reading Time Taken Comments Blood Pressure 107/74 04/30/2025 2:00 PM EDT Pulse 79 04/30/2025 2:00 PM EDT Temperature 36.1 C (97 F) 04/30/2025 10:35 AM EDT Respiratory Rate 15 04/30/2025 2:00 PM EDT Oxygen Saturation 100% 04/30/2025 2:00 PM EDT Inhaled Oxygen Concentration - - Weight 70.3 kg (155 lb) 04/30/2025 10:35 AM EDT Height 165.1 cm (5' 5 ) 04/30/2025 10:35 AM EDT Body Mass Index 25.79 04/30/2025 10:35 AM EDT documented in this encounter Functional Status * Calculated C-SSRS Risk Score (Lifetime/Recent) Answer Date of Assessment Author No Risk Indicated 04/30/2025 10:35 AM EDT Edwardo Yee RN * [place] Suicide Severity Rating Scale (Screener/Recent Self-Report) Question Answer Date of Assessment Author 1. Wish to be (Past 1 Month) No 025 10:35 AM EDT Rajni Yee RN 2. Non-Specific Active Suici edwin Thoughts (Past 1 Month) No 04/30/2025 10:35 AM EDT Rajni Yee RN 6. Suicidal Behavior (Lifetime) No 10:35 AM EDT Rajni Yee RN documented as of this encounter Discharge Instructions * Discharge Instructions* Paul Alanis MD - 04/30/2025 1:34 PM EDT Please make a follow-up appoint with your gynecology team. I am starting you on a medication to take every day until you see your motor runner. This should help slow down the bleeding documented in this encounter Medications at Time of Discharge norethindrone (AYGESTIN) 5 mg tablet Take 1 tablet (5 mg total) by mouth daily. 30 tablet 04/30/2025 documented as of this encounter ED Notes * Jayy Song RN - 04/30/2025 2:36 PM EDT ED Discharge Nursing Note The patient is discharged home with instructions to follow up with their PCP within one week. The patient is breathing evenly and unlabored, they are also ambulatory independently with a steady gait and states that they are ready for discharge. * Rajni Yee RN - 04/30/2025 10:35 AM EDT Pt here for eval of post-op problem. 04/20 pt had a procedure where she had several polyps and linerremoved from her uterus. Since procedure pt has had persistent bloating, abd discomfort and vaginalbleeding. Pt reports bright red blood in toilet and on sanitary pads with dark red clots the slightly larger than a quarter in size. Pt reports she feels it is a large amount of bleeding but hard to track as sometimes bleeding is inconsistent. Pt reports she feels SOB, fatigued, lightheaded, dizzy with some some intermittent CP. Skin appearing pale. A&Ox4, NAD. Resp even non labored, speakingin clear full sentences, managing secretions. Denies any additional concerns at this time. Appreciative of care. * Paul Alanis MD - 04/30/2025 10:20 AM EDT Images from the original note were not included. History of Present Illness The patient, Christelle Stewart,is a 54 y.o. female s/p recent uterine polyp removal and ablation on April 20 in [facility] Who presents to the emergency departmentwith ongoing vaginal bleeding and passing blood clots. Describes going through 3 pads this morning between 7 AM and when she was initially seen around noon. Reports episodes of lightheadedness. Had some chest tightness this morning. Tried to make an appointment with her motor runner but was unsuccessful. History is provided by the patient. ROS Pertinent ROS documented in HPI. Past Medical History No past medical history on file. Past Surgical History No past surgical history on file. Home Medications Prior to Admission medications Medication Sig norethindrone (AYGESTIN) 5 mg tablet 5 mg, Oral, Daily Allergies Allergies Allergen Reactions Latex Reglan [Metoclopramide Hcl] Sulfa (Sulfonamide Antibiotics) Bactrim [Sulfamethoxazole-Trimethoprim] Rash Social and Family History Social History Tobacco Use Smoking status: Never Smokeless tobacco: Never Substance Use Topics Alcohol use: Not Currently Social History Substance and Sexual Activity Drug Use Never No family history on file. Physical Exam Vital Signs: BP 106/61 Pulse 73 Temp 36.1 ??C (97 ??F) (Temporal) Resp 25 Ht 165.1 cm (5' 5 ) Wt 70.3 kg (155 lb) SpO2 100% BMI 25.79 kg/m?? Physical Exam CONSTITUTIONAL: vitals reviewed, well-nourished & well developed, no acute distress EYES: normal lids, no conjunctival injection, no conjunctival pallor HEENT: atraumatic nose, mucosa moist, no exudates or erythema PULMONARY: normal effort, Speaking in full sentences, clear to auscultation bilaterally CARDIOVASCULAR: regular rate and rhythm, no murmur / gallop / rub appreciated ABDOMEN: soft, nondistended, nontender MUSCULOSKELETAL: deferred NEUROLOGIC: Alert and oriented; fluent speech; normal concentration and comprehension SKIN: warm , dry PSYCHIATRIC: alert and oriented, anxious ACETYLENE BURNER: Normal external genitalia, moderate amount of blood in vaginal vault with clots MDM & ED Course Briefly, 54 y.o. female presenting with ongoing bleeding after recent gynecologic procedure.. Reassuring vital signs. Moderate mount of bleeding on pelvic exam EKG @ 1047: Sinus rhythm at a rate of 76, normal axis, normal interval(s), no ST elevations or depressions Impression: No acute ischemic changes noted; no findings to suggest elevated risk for dysrhythmia ASSESSMENT & PLAN Probable and/or high risk diagnostic considerations based on initial impression from the patient's history and exam: Normal or heavy postoperative bleeding, possible anemia, with the chest tightness,consider ACS I independently interpreted the labs --reassuring CBC with hemoglobin 13.6. Normal serial troponins. Normal chemistries. Normal BNP I consulted / discussed management and/or disposition with gynecology who reviewed the [facility]'s [facility] records noting that the pathology was reassuring. Recommendations include: Start norethindrone to mitigate bleeding no imaging necessary. Reassuring orthostats. The patient was up to the bathroom multiple times with steady gait. Evaluation was most consistent with postoperative bleeding with no evidence of life-threatening bleeding. Normal hemoglobin. No evidence to support ACS by EKG and serial troponins. No findings to support immediate life / function threatening cause of symptoms. 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 The patient was instructed to follow up gynecology. All questions were answered. CRITICAL CARE TIME: 0 (exclusive of procedures) ED Course as of 04/30/25 1335 Sat Apr 30, 2025 1246 Leukocyte esterase, ur: Negative [AD] ED Course User Index [AD] Paul Alanis MD Clinical Impressions as of 04/30/25 1335 Vaginal bleeding Disposition: Home Paul Alanis MD Portions of this note were dictated utilizing speech recognition software. Paul Alanis MD 04/30/25 1409 documented in this encounter Plan of Treatment Not on file documented as of this encounter Procedures Procedure Name Priority Date/Time Associated Diagnosis Comments TROPONIN STAT 04/30/2025 12:34 PM EDT Hold Specimen In Blood Bank (No Testing Performed) STAT 04/30/2025 11:24 AM EDT LFTS (HEPATIC PANEL) STAT 04/30/2025 11:24 AM EDT CBC AND DIFFERENTIAL STAT 04/30/2025 11:24 AM EDT TROPONIN STAT 04/30/2025 11:24 AM EDT NT-PROBNP STAT 04/30/2025 11:24 AM EDT LIPASE STAT 04/30/2025 11:24 AM EDT BASIC METABOLIC PANEL STAT 04/30/2025 11:24 AM EDT XR CHEST PA AND LATERAL 2 VIEWS STAT 04/30/2025 11:23 AM EDT URINALYSIS W/REFLEX URINE CULTURE STAT 04/30/2025 10:59 AM EDT URINE SEDIMENT STAT 04/30/2025 10:59 AM EDT ECG 12-LEAD STAT 04/30/2025 10:47 AM EDT documented in this encounter Results * Troponin (04/30/2025 12:34 PM EDT) Troponin-T, HS Gen5 <6 0 - 9 ng/L [facility] Blood 04/30/2025 12:3 4 PM EDT 04/30/2025 12:51 PM EDT us Paul Alanis MD LAB BLOOD ORDERABLES Final Resu lt [address] [address] * Hold Specimen In Blood Bank (04/30/2025 11:24 AM EDT) Expiration Date of Sample 05/03/2025 ,2359 [facility] Resulting Agency [facility] Blood 04/30/2025 11:2 4 AM EDT 04/30/2025 11:35 AM EDT us Paul Alanis MD BLOOD BANK TEST ORDERABLES Joy l Result Performing Organization Address [facility]/ZIP Co de Phone Number [address] [address] * Troponin (04/30/2025 11:24 AM EDT) Troponin-T, HS Gen5 <6 0 - 9 ng/L [facility] Blood 04/30/2025 11:2 4 AM EDT 04/30/2025 11:34 AM EDT us Paul Alanis MD LAB BLOOD ORDERABLES Final Resu lt Performing Organization Address City/[facility]/ZIP Co de Phone Number [address] [address] * NT-proBNP (04/30/2025 11:24 AM EDT) NT-PROBNP <36 0 - 125 pg/mL [facility] Blood 04/30/2025 11:2 4 AM EDT 04/30/2025 11:34 AM EDT us Paul Alanis MD LAB BLOOD ORDERABLES Final Resu lt Performing Organization Address City/[facility]/ZIP Co de Phone Number [address] [address] * (ABNORMAL) Lipase (04/30/2025 11:24 AM EDT) LIPASE 66(H) 16 - 63 U/L [facility] Blood 04/30/2025 11:2 4 AM EDT 04/30/2025 11:34 AM EDT us Paul Alanis MD LAB BLOOD ORDERABLES Final Resu lt Performing Organization Address [facility] Co de Phone Number [address] [address] * LFTs (hepatic panel) (04/30/2025 11:24 AM EDT) ALKALINE PHOSPHATASE 86 39 - 117 U/L [facility] TOTAL BILIRUBIN 0.3 0.0 - 1.2 mg/dL [facility] DIRECT BILIRUBIN <0.1 0.0 - 0.2 mg/dL [facility] Bilirubin (Indirect) NOT CALCULATED 0 - 1.5 mg/dL [facility] AST 15 0 - 37 U/L [facility] ALT 16 0 - 40 U/L [facility] TOTAL PROTEIN 7.3 6.5 - 8.0 g/dL [facility] ALBUMIN 4.3 3.9 - 4.8 g/dL [facility] GLOBULIN 3.0 1 - 4.8 g/dL [facility] A/G Ratio 1.43 1.00 - 4.80 RATIO [facility] Blood 04/30/2025 11:2 4 AM EDT 04/30/2025 11:34 AM EDT us Paul Alanis MD LAB BLOOD ORDERABLES Final Resu lt Performing Organization Address City/[facility]/ZIP Co de Phone Number [address] [address] * (ABNORMAL) Basic metabolic panel (04/30/2025 11:24 AM EDT) SODIUM 137 133 - 146 mmol/L [facility] CHLORIDE 103 96 - 108 mmol/L [facility] POTASSIUM 4.0 3.3 - 5.1 mmol/L [facility] CO2 23 21 - 35 mmol/L [facility] BUN 16 6 - 19 mg/dL [facility] CREATININE 0.50 0.5 - 1.5 mg/dL [facility] GLUCOSE 105(H) 70 - 99 mg/dL [facility] CALCIUM 9.3 8.4 - 10.3 mg/dL [facility] EGFR 111 >59 mL/min/1.7 3m2 [facility] Comment:Estimated glomerular filtration rate calculated using the CKD-EPI refit equation. ANION GAP 15 10 - 20 mmol/L [facility] Blood 04/30/2025 11:2 4 AM EDT 04/30/2025 11:34 AM EDT us Paul Alanis MD LAB BLOOD ORDERABLES Final Resu lt [address] [address] * CBC and differential (04/30/2025 11:24 AM EDT) WBC 7.92 4.00 - 11.00 K/uL [facility] RBC 4.66 4.00 - 5.20 M/uL [facility] HGB 13.6 12.0 - 16.0 g/dL [facility] HCT 40.7 36.0 - 46.0 % [facility] PLT 337 150 - 450 K/uL [facility] MCV 87.3 80.0 - 100.0 fL [facility] MCH 29.2 27.0 - 31.0 pg [facility] MCHC 33.4 32.0 - 36.0 g/dL [facility] RDW 12.7 11.5 - 14.5 % [facility] MPV 9.7 8.4 - 12.0 fL [facility] NRBC 0.00 0.00 /100 WBCs [facility] ABSOLUTE NRBC 0.00 0.00 K/uL [facility] DIFF METHOD Auto [facility] NEUTS 56.2 48.0 - 76.0 % [facility] LYMPHS 33.3 18.0 - 41.0 % [facility] MONOS 7.4 4.0 - 11.0 % [facility] EOS 2.1 0.0 - 5.0 % [facility] BASOS 0.5 0.0 - 1.5 % [facility] Granulocytes, immature (%) 0.5 0.0 - 0.9 % [facility] ABSOLUTE NEUTS 4.44 1.92 - 7.60 K/uL [facility] ABSOLUTE LYMPHS 2.64 0.72 - 4.10 K/uL [facility] ABSOLUTE MONOS 0.59 0.16 - 1.10 K/uL [facility] ABSOLUTE EOS 0.17 0.00 - 0.50 K/uL [facility] ABSOLUTE BASOS 0.04 0.00 - 0.15 K/uL [facility] Granulocytes, immature 0.04 0.00 - 0.09 K/uL [facility] Blood 04/30/2025 11:2 4 AM EDT 04/30/2025 11:34 AM EDT us Paul Alanis MD LAB BLOOD ORDERABLES Final Resu lt [address] [address] * XR CHEST PA AND LATERAL 2 VIEWS (04/30/2025 11:23 AM EDT) Anatomical Region Laterality Modality Chest Computed Radiogr aphy 04/30/2025 12:1 5 PM EDT Impressions 04/30/2025 12:15 PM EDT No acute abnormality. Narrative 04/30/2025 12:15 PM EDT XR CHEST PA AND LATERAL 2 VIEWS Referring clinician's provided indication for this examination in Epic: Dyspnea (Shortness of Breath) COMPARISON: None FINDINGS: Devices/Tubes/Lines: None. Lungs: No focal consolidation or pulmonary edema. Pleura: No pleural effusion or pneumothorax. Heart/Mediastinum: Normal heart and mediastinum. Bones/Soft Tissues: Mild thoracic spine degenerative changes. Procedure Note Anastacio Martin MD, PhD - 04/30/2025 XR CHEST PA AND LATERAL 2 VIEWS Referring clinician's provided indication for this examination in Epic:Dyspnea (Shortness of Breath) COMPARISON: None FINDINGS: Devices/Tubes/Lines: None. Lungs: No focal consolidation or pulmonary edema. Pleura: No pleural effusion or pneumothorax. Heart/Mediastinum: Normal heart and mediastinum. Bones/Soft Tissues: Mild thoracic spine degenerative changes. IMPRESSION: No acute abnormality. Paul Alanis MD IMG XR CHEST Final Result * (ABNORMAL) Urine sediment (04/30/2025 10:59 AM EDT) WBC 0-4(A) NONE SEEN /hpf [facility] RBC 50-100(A) NONE SEEN /hpf [facility] URINE EPITHELIAL 0-4(A) NONE SEEN [facility] MUCUS NONE SEEN NONE SEEN /hpf [facility] BACTERIA Trace(A) NONE SEEN /hpf [facility] 04/30/2025 10:5 9 AM EDT 04/30/2025 11:08 AM EDT us Paul Alanis MD URINE ORDERABLES Final Result [facility] [address] [place] [address] * (ABNORMAL) Urinalysis w/reflex Urine Culture (04/30/2025 10:59 AM EDT) COLOR Yellow Yellow [facility] CLARITY Clear [facility] GLUCOSE Negative Negative [facility] BILI Negative Negative [facility] KETONES Negative Negative [facility] SPECIFIC GRAVITY 1.010 1.005 - 1.030 [facility] BLOOD 3+(A) Negative [facility] PH 6.0 5.0 - 8.0 [facility] Protein-UA Negative Negative [facility] NITRITE Negative Negative [facility] Leukocyte esterase, ur Negative Negative [facility] Urine (Urine) 04/30/2025 10: 59 AM EDT 04/30/2025 11:08 AM EDT us Paul Alanis MD URINE ORDERABLES Final Result Performing Organization Address City/[facility] Co de Phone Number [address] [address] * ECG 12-LEAD (04/30/2025 10:47 AM EDT) Ventricular Rate EKG/MIN 76 BPM [facility] Atrial Rate 76 BPM [facility] NC Interval 170 ms [facility] QRS Duration 90 ms [facility] QT Interval 400 ms [facility] QTC Interval 450 ms [facility] P [place] 59 degrees [facility] R Wave [place] 37 degrees [facility] T Wave [place] 60 degrees [facility] 04/30/2025 10:4 7 AM EDT 05/01/2025 9:20 AM EDT Narrative [facility] - 05/01/2025 9:20 AM EDT Normal sinus rhythm Low voltage QRS Borderline ECG No previous ECGs available Confirmed by Kvng DUONG ([id number]) on 05/01/2025 9:20:53 AM us Paul Alanis MD ECG ORDERABLES Final Result [facility] documented in this encounter Visit Diagnoses Diagnosis Vaginal bleeding- Primary Other specified noninflammatory disorder of vagina documented in this encounter Administered Medications Inactive Administered Medications - up to 3 most recent administrations Medication Order MAR Action Action Date Dose Rate Site sodium chloride (NS) 0.9 % syringe flush 3 mL 3 mL, Intravenous, As needed, line care, Starting on 04/30/25 at 1050, Per Institutional IV Line Care Policy. documented in this encounter Active and Recently Administered Medications Times are shown in EDT. PRN Medication Order 04/28/2025 04/29/2025 04/30/2025 sodium chloride (NS) 0.9 % syringe flush 3 mL 3 mL, Intravenous, As needed, line care, Starting on 04/30/25 at 1050, Per Institutional IV Line Care Policy. documented in this encounter Care Teams Flatwork Folder Relationship Specialty Start Date End Date Po, Gigi Leigh MD [address] [place] [address] [place] [address] [phone] PCP - General Internal Medicine 06/17/21 documented as of this encounter Additional Source Comments The information contained in this document represents components of the legal health record. It is not the complete legal health record.[facility]
[2025-05-02 12:59] VITALS: BP 120/64; PULSE 76; TEMP 36.5; O2SAT 98; BMI 26.0
--- NOTE | 2025-05-02 12:59 | A.OFFPC_ITS ---
Vital Signs 05/02/25 12:59 Height 5 ft 5 in Weight 156 lb 6 oz BMI 26.0 BP 120/64 Blood Pressure Location Lt brachial Position Sitting Pulse 76 Pulse Source Pulse Oximeter Temp 97.7 F Temp Source Temporal Artery Scan Pulse Oximetry (%) 98 Oxygen Delivery Method Room Air Intake Visit Reasons: hypercholesterol Allergies latex (Latex) Allergy (Mild, Verified 05/02/25 13:02) SWELLING/ITCHING Sulfa (Sulfonamide Antibiotics) Allergy (Mild, Verified 05/02/25 13:02) SWELLING/ITCHING, pruritis sulfamethoxazole (From BACTRIM) Allergy (Unknown, Verified 05/02/25 13:02) ITCHY/HIVES trimethoprim (From BACTRIM) Allergy (Unknown, Verified 05/02/25 13:02) ITCHY/HIVES milk Allergy (Verified 05/02/25 13:02) Stomach Upset metoclopramide (From REGLAN) Adverse Reaction (Unknown, Verified 05/02/25 13:02) AGITATION Tobacco use date assessed: 05/02/25 Dental Screening Dental Screen Date: 05/02/25 Did you have a dental visit in the last 12 months?: Yes Did you have a dental problem in the last 6 months where you did not have access to dental care?: No Was dental information given to patient?: Patient has dentist HPI hypercholesterol HPI Details ER visit for vaginal bleeding was given a med but still bleeding. and states was not told . and has constipation presently [facility] Medical History (Updated 05/02/25 @ 13:17 by Gigi Barrow MD) SOB (shortness of breath) Annual physical exam Urinary incontinence Post-nasal drip Cough Cervicalgia Vertigo Sprain of left medial ankle joint Hordeolum external Dizziness Migraine Tubular adenoma of colon Calcium oxalate crystals in urine Varicose veins of legs Heart palpitations Multiple pigmented nevi Mild carpal tunnel syndrome of right wrist Chronic idiopathic constipation Tachycardia Shoulder pain, bilateral Upper abdominal pain Pre-op examination Mass of left upper extremity Left arm swelling Laceration of left hand Lightheadedness Otitis media Otitis externa Bilateral hand numbness Upper respiratory infection Low back pain Breast cancer screening by mammogram Thyroid nodule Oropharyngeal dysphagia UTI (urinary tract infection) Right kidney stone COVID-19 Chest pain Delayed gastric emptying Daytime sleepiness Snoring Migraine Unspecified Eustachian tube disorder, left ear Acute pharyngitis Urgency of micturition Abdominal pain Dysuria Diarrhea Hematuria Acute conjunctivitis of left eye Wound of right leg Abdominal cramping Allergic conjunctivitis Nephrolithiasis Colitis Interstitial cystitis Chronic cough COVID-19 long hauler COVID-19 Elevated lipase Pain in both knees Vaginal itching Suprapubic pain Vaginal spotting Hematuria Frequency of micturition Myalgia Post-vaccination reaction Palpitations Bilateral lower extremity pain Hearing deficit Frequency of micturition Toe swelling Toe pain, right Vitamin B12 deficiency Scalp cyst Vitamin D deficiency GERD (gastroesophageal reflux disease) Multiple thyroid nodules Lateral meniscal tear Restrictive lung disease Benign hematuria Hemorrhoids Irritable bowel syndrome Cervical disc herniation Impaired glucose tolerance Hypercholesterolemia Erosive esophagitis Surgical History (Updated 05/02/25 @ 13:03 by Monie Howard CMA) H/O cervical polypectomy Hx of colonoscopy H/O esophagogastroduodenoscopy S/P excision of lipoma Hx of tubal ligation History of lumpectomy of left breast Family History Father Skin cancer Mother Skin cancer High blood pressure Heart problem Maternal Grandfather Skin cancer Cancer FH: prostate cancer Brother Schizophrenia Other CVA (cerebral vascular accident) Mental health problem Social History Household Members: None Housing: Apartment Alcohol intake: never Patient Tobacco Use Status: Former Tobacco user Tobacco use type: Cigarette Years Smoked: quit 2008 e-Cigarette/Vaping Use: Never Used Second Hand Smoke Exposure: Yes service: No Current occupational status: employed 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 1. Little interest or pleasure in doing things: not at all 2. Feeling down, depressed, or hopeless: several days 3. Trouble falling or staying asleep, or sleeping too much: not at all 4. Feeling tired or having little energy: nearly every day 5. Poor appetite or overeating: not at all 6. Feeling bad about yourself - or that you are a failure or have let yourself or your family down: not at all 7. Trouble concentrating on things, such as reading the newspaper or watching television: several days 8. Moving or speaking so slowly that other people could have noticed. Or the opposite - being so fidgety or restless that you have been moving around a lot more than usual: not at all 9. Thoughts that you would be better off or of hurting yourself in some way: not at all Total score: 5 Depression Screening Interpretation: Positive Depression Screening Done: Yes Source: Developed by Drs. Bill Morris, Chiquis Webster, Dkue Madera and colleagues, with an educational claudia from [employer]. Thrive Questionnaire Date Thrive assessed: 02/21/25 I am a: Patient What is your living situation today?: I have a steady place to live Within the past 12 months, did the food you bought not last and you didn't have the money to get more?: Never true Within the past 12 months, did you worry whether your food would run out before you got money to buy more?: Never true Do you have trouble paying for medicines?: No Do you have trouble getting transportation to medical appointments?: No Do you have trouble paying your heating and electricity bill?: No Do you have trouble taking care of your child, family member or friend?: No Do you have trouble with day-to-day activities such as bathing, preparing meals, shopping, managing finances, etc.?: No Are you currently unemployed and looking for a job?: No Are you interested in more education?: No Please select the resources that you would like help with: None Currently or been in a relationship where the following occur: No concerns reported THRIVE Score: 0 AUDIT C Alcohol Use Questionnaire (AUDIT-C) 1. How often do you have a drink containing alcohol?: Never 3. How often do you have six or more drinks on one occasion?: Never Total Score: 0 PACO-7 AMB Questionnaire PACO-7 Date PACO - 7 assessed: 02/21/25 Feeling nervous, anxious, or on edge: 2 = More than half the days Not being able to stop or control worryin = Nearly every day Worrying too much about different things: 3 = Nearly every day Trouble relaxin = Several days Being so restless that it is hard to sit still: 0 = Not at all Becoming easily annoyed or irritable: 1 = Several days Feeling afraid as if something awful might happen: 0 = Not at all Total PACO-7 score (0-4 normal; 5-9 mild; 10-14 moderate; 15-21 severe): 10 Source: Developed by Drs. Bill Morris, Chiquis Webster, Duke Madera and colleagues, with an educational claudia from [employer]. Physical exam (Primary Care) Vital Signs: Last Vital Signs Temp 97.7 F 05/02/25 12:59 Pulse 76 05/02/25 12:59 BP 120/64 05/02/25 12:59 Pulse Ox 98 05/02/25 12:59 Oxygen Delivery Method Room Air 05/02/25 12:59 BMI result Body Mass Index 26.0 Tobacco/Smoking Status: Tobacco use Status Tobacco use date assessed 05/02/25 05/02/25 13:04 Patient Tobacco Use Status Former Tobacco user 05/02/25 13:04 Tobacco use type Cigarette 05/02/25 13:04 e-Cigarette/Vaping Use Never Used 05/02/25 13:04 PHQ-9: PHQ-9 Score PHQ-9: Total score 5 05/02/25 13:19 Depression Screening Interpretation: Positive Thrive Assessment: Date of Thrive Assessment Date Thrive assessed 02/21/25 05/02/25 13:04 Currently or been in a relationship where the following occur: No concerns reported Const General: alert; No acute distress Eyes Conjunctivae: conjunctivae normal Resp Auscultation: clear to auscultation bilaterally Cardio Rate: regular rate Rhythm: regular rhythm GI Inspection: Yes normal to inspection Extrem General: Yes normal to inspection and No edema Coding Level of Care Code Est Pt Level 4 (39054) Complex EM visit Add On G2211 Diagnoses Impaired glucose tolerance R73.02 Gastroesophageal reflux disease without esophagitis K21.9 Esophagitis presence: without esophagitis Interstitial cystitis (chronic) with hematuria N30.11 Generalized anxiety disorder F41.1 Hypercholesterolemia E78.00 Menorrhagia N92.0 Assessment & Plan Assessment & Plan (1) Impaired glucose tolerance: Code(s): R73.02 - Impaired glucose tolerance (oral) Category: Medical Plan: Decrease the amount of carbohydrate intake, pasta, bread, rice and potatoes are all sugar and that is aside from all the sweet stuff, remember that fruits are good but they are Sweet also. (2) GERD (gastroesophageal reflux disease): Code(s): K21.9 - Gastro-esophageal reflux disease without esophagitis Category: Medical Qualifiers: Esophagitis presence: without esophagitis Qualified Code(s): K21.9 - Gastro-esophageal reflux disease without esophagitis Plan: Avoid the foods that causes that usually spicy foods, tomato products, juices, coffee, soda and foods that your sensitive to. After eating do not lie down, allow 3-4 hours before in lie down. And keep the head of bed above 30 degrees to avoid the acid from going up. (3) Interstitial cystitis (chronic) with hematuria: Code(s): N30.11 - Interstitial cystitis (chronic) with hematuria Category: Medical Plan: Continue to follow-up with urology (4) Generalized anxiety disorder: Comment: [facility] Code(s): F41.1 - Generalized anxiety disorder Category: Medical Plan: Continue with counseling and therapy (5) Hypercholesterolemia: Code(s): E78.00 - Pure hypercholesterolemia, unspecified Category: Medical Plan: Avoid fried foods, chicken skin, eggs, butter margarine, pastries and meat. Be it pork or beef they have a lot of cholesterol LDL goal of less than 130 and triglyceride of less than 150 on atorvastatin 20 mg once a day and fenofibrate (6) Menorrhagia: Code(s): N92.0 - Excessive and frequent menstruation with regular cycle Category: Medical Plan: s/p hysteroscopy seeing gynecology and was given a med. Plan History of Present Illness The patient is a 54-year-old female presenting for a follow-up visit. The patient has a history of migraine, interstitial cystitis, and generalized anxiety disorder, which have been ongoing concerns. She also experiences chronic low back pain and has been diagnosed with hypercholesterolemia and esophagitis. She underwent a hysteroscopy for postmenopausal bleeding in March 2024, addressing persistent bleeding issues. Recent laboratory results indicated normal blood count and electrolytes, but elevated blood sugar and cholesterol levels, with an A1c of 5.9 and triglycerides at 267 mg/dL. Health Maintenance - Mammogram is up to date - Colonoscopy performed in March 2024 Social History Review of Systems - Neurological: Reports migraine - Genitourinary: Reports interstitial cystitis - Psychiatric: Reports generalized anxiety disorder - Musculoskeletal: Reports chronic low back pain - Gastrointestinal: Reports esophagitis - Endocrine: Reports elevated blood sugar - Cardiovascular: Reports hypercholesterolemia Physical Exam Results - Labs: Normal blood count, normal electrolytes, elevated blood sugar with A1c of 5.9, elevated cholesterol with triglycerides at 267 mg/dL Plan Patient was informed and verbally consented to the use of an ambient scribe for clinic note documentation during this visit. 1. Migraine The patient continues to manage her migraine condition, which has been a recurring issue. 2. Interstitial Cystitis Management of interstitial cystitis is ongoing, with regular follow-ups recommended. 3. Generalized Anxiety Disorder The patient is advised to continue with counseling and therapy for generalized anxiety disorder. 4. Chronic Low Back Pain Chronic low back pain management includes monitoring and addressing any exacerbations. 5. Hypercholesterolemia The patient is on atorvastatin 20 mg daily with a goal to reduce LDL cholesterol to less than 130 mg/dL and triglycerides to less than 150 mg/dL. 6. Esophagitis Esophagitis management includes dietary modifications and monitoring symptoms. 7. Postmenopausal Bleeding The patient underwent a hysteroscopy for postmenopausal bleeding, and follow-up with gynecology is advised. 8. Elevated Blood Sugar Elevated blood sugar management includes monitoring and lifestyle modifications to prevent progression to diabetes. Discussion Notes During the visit, we discussed the management of the patient's chronic conditions, including migraine, interstitial cystitis, and generalized anxiety disorder. We also reviewed her elevated cholesterol and blood sugar levels, emphasizing the importance of medication adherence and lifestyle modifications. The patient was advised to continue follow-up with gynecology for postmenopausal bleeding and to maintain regular health screenings. Patient Instructions - Continue prescribed medications as directed. - Follow up with gynecology for postmenopausal bleeding. - Maintain a healthy diet and exercise regularly to manage cholesterol and blood sugar levels. - Stay hydrated and consume iron-rich foods to support overall health.
--- OUTSIDE RECORDS SUMMARY | 2025-05-02 15:12 | XMS_ITS | Clinical Summary ---
Author Organization [facility] Address [address] [address] Phone Care Team Providers Care Telephone Information Supervisor Name Role Phone Gigi Barrow MD Primary Care Provider [phone] Allergies Active Allergy Reactions Criticality Noted Date Comments Sulfamethoxazole-Trimethoprim Rash Low 2024 Latex 06/17/2021 Metoclopramide Hcl 06/17/2021 Sulfa (Sulfonamide Antibiotics) 05/29 Medications norethindrone (AYGESTIN) 5 mg tablet Take 1 tablet (5 mg total) by mouth daily. 30 tablet 04/30/2025 Active Encounters Date Type Department Care Team Description 04/30/2025 10:55 AM EDT - 04/30/2025 2:38 PM EDT Emergency [facility] [address] [place] [address] Paul Alanis MD Discharge Disposition: Home or Self Care from Last 3 Months Social History Tobacco Use Types Packs/Day Years [...] Orientation Straight 04/30/2025 11 :38 AM EDT Last Filed Vital Signs Vital Sign Reading [...] Mass Index 25.79 04/30/2025 10:35 AM EDT Plan of Treatment Health Maintenance Due Date Last Done Comments DEPRESSION SCREENING 1981 HEPATITIS C SCREENING 12/09/1987 HIV ONE-TIME SCREENING (18-65 YEARS) 12/09/1987 PAP SMEAR 1990 COLOGUARD 2014 COLONOSCOPY 2014 COLORECTAL CANCER SCREENING 2014 FIT TEST 2014 FOBT 2014 SIGMOIDOSCOPY 2014 VIRTUAL COLONOSCOPY 2014 LIPID PANEL 02/25/2017 02/26/2012 PNEUMOCOCCAL VACCINES (50+ years) (1 of 1 - PCV) 12/09/2019 ZOSTER VACCINES (1 of 2) 12/09/2019 INFLUENZA VACCINE (#1) 2025 , 04/24/2020, 05/06/2019, Additional history exists COVID-19 VACCINE (3 - season) 2025 12/13/2020, 11/15/2020 Adult Td,Tdap Booster 11/28/2025 11/29/2015 MAMMOGRAM 08/25/2026 08/25/2024 SCREENING FOR DIABETES 04/30/2028 04/30/2025 RSV VACCINE (1 - 1-dose 75+ series) 2044 SMOKING STATUS SCREENING (Once After 26 Yrs) Completed 04/30/2025 HEPATITIS A VACCINES Aged Out No long [...] this topic Medical Devices Not on file Procedures Procedure Name Priority Date/Time Associated Diagnosis Comments TROPONIN STAT 04/30/2025 12:34 PM EDT Hold Specimen In Blood Bank (No Testing Performed) STAT 04/30/2025 11:24 AM EDT TROPONIN STAT 04/30/2025 11:24 AM EDT NT-PROBNP STAT 04/30/2025 11:24 AM EDT LIPASE STAT 04/30/2025 11:24 AM EDT LFTS (HEPATIC PANEL) STAT 04/30/2025 11:24 AM EDT BASIC METABOLIC PANEL STAT 04/30/2025 11:24 AM EDT CBC AND DIFFERENTIAL STAT 04/30/2025 11:24 AM EDT XR CHEST PA AND LATERAL 2 VIEWS STAT 04/30/2025 11:23 AM EDT URINE SEDIMENT STAT 04/30/2025 10:59 AM EDT URINALYSIS W/REFLEX URINE CULTURE STAT 04/30/2025 10:59 AM EDT ECG 12-LEAD STAT 04/30/2025 10:47 AM EDT from Last 3 Months Results * Troponin (04/30/2025 12:34 PM EDT) Only the most recent of2 resultswithin the time period is included. Troponin-T, HS Gen5 <6 0 - 9 ng/L [facility] Blood 04/30/2025 12:3 4 PM EDT 04/30/2025 12:51 PM EDT us Paul Alanis MD LAB BLOOD ORDERABLES Final Resu lt [facility] [address] [place] [address] * Hold Specimen In Blood Bank (04/30/2025 11:24 AM EDT) Expiration Date of Sample 05/03/2025 ,2359 [facility] Resulting Agency [facility] Blood 04/30/2025 11:2 4 AM EDT 04/30/2025 11:35 AM EDT us Paul Alanis MD BLOOD BANK TEST ORDERABLES Joy l Result Performing Organization Address City/[facility]/ZIP Co de Phone Number [address] [address] * LFTs (hepatic panel) (04/30/2025 11:24 AM EDT) ALKALINE PHOSPHATASE 86 39 - 117 U/L [facility] TOTAL BILIRUBIN 0.3 0.0 - 1.2 mg/dL [facility] DIRECT BILIRUBIN <0.1 0.0 - 0.2 mg/dL [facility] Bilirubin (Indirect) NOT CALCULATED 0 - 1.5 mg/dL [facility] AST 15 0 - 37 U/L [facility] ALT 16 0 - 40 U/L [facility] TOTAL PROTEIN 7.3 6.5 - 8.0 g/dL [facility] ALBUMIN 4.3 3.9 - 4.8 g/dL [facility] GLOBULIN 3.0 1 - 4.8 g/dL [facility] A/G Ratio 1.43 1.00 - 4.80 RATIO [facility] Blood 04/30/2025 11:2 4 AM EDT 04/30/2025 11:34 AM EDT us Paul Alanis MD LAB BLOOD ORDERABLES Final Resu lt Performing Organization Address City/[facility]/ZIP Co de Phone Number [address] [address] * CBC and differential (04/30/2025 11:24 AM EDT) WBC 7.92 4.00 - 11.00 K/uL [facility] RBC 4.66 4.00 - 5.20 M/uL [facility] HGB 13.6 12.0 - 16.0 g/dL [facility] HCT 40.7 36.0 - 46.0 % [facility] PLT 337 150 - 450 K/uL [facility] MCV 87.3 80.0 - 100.0 fL [facility] MCH 29.2 27.0 - 31.0 pg [facility] MCHC 33.4 32.0 - 36.0 g/dL [facility] RDW 12.7 11.5 - 14.5 % [facility] MPV 9.7 8.4 - 12.0 fL [facility] NRBC 0.00 0.00 /100 WBCs [facility] ABSOLUTE NRBC 0.00 0.00 K/uL [facility] DIFF [employer] [facility] NEUTS 56.2 48.0 - 76.0 % [facility] LYMPHS 33.3 18.0 - 41.0 % [facility] MONOS 7.4 4.0 - 11.0 % [facility] EOS 2.1 0.0 - 5.0 % [facility] BASOS 0.5 0.0 - 1.5 % [facility] Granulocytes, immature (%) 0.5 0.0 - 0.9 % [facility] ABSOLUTE NEUTS 4.44 1.92 - 7.60 K/uL [facility] ABSOLUTE LYMPHS 2.64 0.72 - 4.10 K/uL [facility] ABSOLUTE MONOS 0.59 0.16 - 1.10 K/uL [facility] ABSOLUTE EOS 0.17 0.00 - 0.50 K/uL [facility] ABSOLUTE BASOS 0.04 0.00 - 0.15 K/uL [facility] Granulocytes, immature 0.04 0.00 - 0.09 K/uL [facility] Blood 04/30/2025 11:2 4 AM EDT 04/30/2025 11:34 AM EDT us Paul Alanis MD LAB BLOOD ORDERABLES Final Resu lt [facility] [address] [place] [address] * NT-proBNP (04/30/2025 11:24 AM EDT) NT-PROBNP <36 0 - 125 pg/mL [facility] Blood 04/30/2025 11:2 4 AM EDT 04/30/2025 11:34 AM EDT us Paul Alanis MD LAB BLOOD ORDERABLES Final Resu lt Performing Organization Address City/[facility]/ZIP Co de Phone Number [address] [address] * (ABNORMAL) Lipase (04/30/2025 11:24 AM EDT) Pathologist [facility] LIPASE 66(H) 16 - 63 U/L [facility] Blood 04/30/2025 11:2 4 AM EDT 04/30/2025 11:34 AM EDT us Paul Alanis MD LAB BLOOD ORDERABLES Final Resu lt Performing Organization Address City/[facility] Co de Phone Number [address] [address] * (ABNORMAL) Basic metabolic panel (04/30/2025 11:24 AM EDT) Pathologist [facility] SODIUM 137 133 - 146 mmol/L [facility] CHLORIDE 103 96 - 108 mmol/L [facility] POTASSIUM 4.0 3.3 - 5.1 mmol/L [facility] CO2 23 21 - 35 mmol/L [facility] BUN 16 6 - 19 mg/dL [facility] CREATININE 0.50 0.5 - 1.5 mg/dL [facility] GLUCOSE 105(H) 70 - 99 mg/dL [facility] CALCIUM 9.3 8.4 - 10.3 mg/dL [facility] EGFR 111 >59 mL/min/1.7 3m2 [facility] Comment:Estimated glomerular filtration rate calculated using the CKD-EPI refit equation. ANION GAP 15 10 - 20 mmol/L [facility] Blood 04/30/2025 11:2 4 AM EDT 04/30/2025 11:34 AM EDT us Paul Alanis MD LAB BLOOD ORDERABLES Final Resu lt [facility] [address] [place] [address] * XR CHEST PA AND LATERAL 2 VIEWS (04/30/2025 11:23 AM EDT) Anatomical Region Laterality Modality Chest Computed Radiogr aphy 04/30/2025 12:1 5 PM EDT Impressions 04/30/2025 12:15 PM EDT No acute abnormality. Narrative 04/30/2025 12:15 PM EDT XR CHEST PA AND LATERAL 2 VIEWS Referring clinician's provided indication for this examination in [facility]: Dyspnea (Shortness of Breath) COMPARISON: None FINDINGS: Devices/Tubes/Lines: None. Lungs: No focal consolidation or pulmonary edema. Pleura: No pleural effusion or pneumothorax. Heart/Mediastinum: Normal heart and mediastinum. Bones/Soft Tissues: Mild thoracic spine degenerative changes. Procedure Note Anastacio Martin MD, PhD - 04/30/2025 XR CHEST PA AND LATERAL 2 VIEWS Referring clinician's provided indication for this examination in [facility]:Dyspnea (Shortness of Breath) COMPARISON: None FINDINGS: Devices/Tubes/Lines: None. Lungs: No focal consolidation or pulmonary edema. Pleura: No pleural effusion or pneumothorax. Heart/Mediastinum: Normal heart and mediastinum. Bones/Soft Tissues: Mild thoracic spine degenerative changes. IMPRESSION: No acute abnormality. us Paul Alanis MD IMG XR CHEST Final Result * (ABNORMAL) Urinalysis w/reflex Urine Culture (04/30/2025 10:59 AM EDT) COLOR Yellow Yellow [facility] CLARITY Clear [facility] GLUCOSE Negative Negative [facility] BILI Negative Negative [facility] KETONES Negative Negative [facility] SPECIFIC GRAVITY 1.010 1.005 - 1.030 [facility] BLOOD 3+(A) Negative [facility] PH 6.0 5.0 - 8.0 [facility] Protein-UA Negative Negative [facility] NITRITE Negative Negative [facility] Leukocyte esterase, ur Negative Negative [facility] Urine (Urine) 04/30/2025 10: 59 AM EDT 04/30/2025 11:08 AM EDT us Paul Alanis MD URINE ORDERABLES Final Result Performing Organization Address [facility] Co de Phone Number [address] [address] * (ABNORMAL) Urine sediment (04/30/2025 10:59 AM EDT) WBC 0-4(A) NONE SEEN /hpf [facility] RBC 50-100(A) NONE SEEN /hpf [facility] URINE EPITHELIAL 0-4(A) NONE SEEN [facility] MUCUS NONE SEEN NONE SEEN /hpf [facility] BACTERIA Trace(A) NONE SEEN /hpf [facility] 04/30/2025 10:5 9 AM EDT 04/30/2025 11:08 AM EDT us Paul Alanis MD URINE ORDERABLES Final Result Performing Organization Address [facility] Co de Phone Number [address] [address] * ECG 12-LEAD (04/30/2025 10:47 AM EDT) Ventricular Rate EKG/MIN 76 BPM [facility] Atrial Rate 76 BPM [facility] MI Interval 170 ms [facility] QRS Duration 90 ms [facility] QT Interval 400 ms [facility] QTC Interval 450 ms [facility] P [place] 59 degrees [facility] R Wave [place] 37 degrees [facility] T Wave [place] 60 degrees [facility] 04/30/2025 10:4 7 AM EDT 05/01/2025 9:20 AM EDT Narrative [facility] - 05/01/2025 9:20 AM EDT Normal sinus rhythm Low voltage QRS Borderline ECG No previous ECGs available Confirmed by Kvng DUONG ([id number]) on 05/01/2025 9:20:53 AM us Paul Alanis MD ECG ORDERABLES Final Result [facility] from Last 3 Months Insurance [facility] ACO [facility] ACO [facility] [place] [address] [place] [address] [place] [place] [address] ACO [address] [place] [address] ACO Care Teams Telephone Information Supervisor Relationship Specialty Start Date End Date Gigi Barrow MD [address] [place] [address] Drive [address] [place] [id number] PCP - General Internal Medicine 06/17/21 Additional Source Comments The information contained in this document represents components of the legal health record. It is not the complete legal health record.[facility]
--- OUTSIDE RECORDS SUMMARY | 2025-05-02 15:12 | XMS_ITS | Encounter Summary ---
Author Organization [facility] Address [address] [place] [address] Care Team Providers Care Director Talent Management Name Role Phone Gigi Barrow MD Primary Care Provider [phone] Reason for Visit * Reason Onset Date Comments heavy bleeding 04/27/2025 Encounter Details Date Type Department Care Team ([facility] st Contact Info) Description 04/27/2025 Telephone Obstetrics [facility]necology [facility] [address] [place], [place] [phone] Luly Brown, [address] [place], [place] Social History Tobacco Use Types Packs/Day Years Used Date Smoking Tobacco: Former Cigarettes Q uit: 09/26/2007 Smokeless Tobacco: Never Alcohol Use Standard Drinks/Week Comments No 0 (1 standard drink = 0.6 oz pur e alcohol) Interpersonal Safety Answer Date Record ed Physical Abuse Unrecognized value 04/20/2025 Verbal Abuse Unrecognized value 04/20/2025 Comments No Sex and Gender Information Value Date Recorded Sex Assigned at Not on file Legal Sex Female 5:42 PM EST Gender Identity Not on file Sexual Orientation Not on file 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 She is calling again with bleeding s/p hysteroscopy D&C done 04/20. Bleeding is NOT heavy. Having light bleeding that she notes every time she goes to the bathroom and wipes. Is not saturating through pads an hour. Is just concerned that she is having this bleeding as postmenopausal and not sure if has UTI. Urine culture done yesterday was negative for infection. I did send note to provider (on urine culture note) re: pt bleeding. She does report some dizziness but does not want to go to ER for evaluation. Bleeding is currently light so will monitor it for another couple days. If it persists, will call back to schedule a follow up appt with provider. * Phylicia Quispe - 04/27/2025 3:44 PM EDT Pt calling, states she continous with heavy bleeding to the point she is now feeling weak . Pls advise (had sx a week ago ) documented in this encounter Plan of Treatment Upcoming Encounters Date Type Department Care Team (Late st Contact Info) Description 05/05/2025 3:30 PM EDT Office Visit Obstetrics [facility]necology - [facility] [address] [place], [place] [phone] Luly Brown DO [address] [place], [place] documented as of this encounter Visit Diagnoses Not on filedocumented in this encounter Care Teams Director Talent Management Relationship Specialty Start Date End Date Gigi Barrow MD [address] [place] [address] [address] [facility] [place] [address] PCP - General Internal Medicine 02/20/16 documented as of this encounter
--- OUTSIDE RECORDS SUMMARY | 2025-05-02 15:12 | XMS_ITS | Encounter Summary ---
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 She is still having some bleeding, taking norethindrone as prescribed. Will f/u as scheduled. Pt was seen at [facility] (see CareEverywhere for note). Pt here for eval of post-op problem. 04/20 pt had a procedure where she had several polyps and liner removed from her uterus. Since procedure pt has had persistent bloating, abd discomfort and vaginal bleeding. Pt reports bright red blood in toilet and on sanitary pads with dark red clots the slightly larger than a quarter in size. Pt reports she feels it is a large amount of bleeding but hard totrack as sometimes bleeding is inconsistent. Pt reports she feels SOB, fatigued, lightheaded, dizzywith some some intermittent CP. Skin appearing pale. A&Ox4, NAD. Resp even non labored, speaking in clear full sentences, managing secretions. Denies any additional concerns at this time History of Present Illness The patient, Christelle Stewart,is a 54 y.o. female s/p recent uterine polyp removal and ablation on April 20 in [facility] Who presents to the emergency departmentwith ongoing vaginal bleeding and passing blood clots. Describes going through 3 pads this morning between 7 AM and when she was initially seen around noon. Reports episodes of lightheadedness. Had some chest tightness this morning. Tried to make an appointment with her laboratory miller but was unsuccessful. TAIL SAWYER: Normal external genitalia, moderate amount of blood in vaginal vault with clots I independently interpreted the labs --reassuring CBC with hemoglobin 13.6. Normal serial troponins. Normal chemistries. Normal BNP I consulted / discussed management and/or disposition with gynecology who reviewed the patient's [facility] records noting that the pathology was reassuring. [...] life / function threatening cause of symptoms. Was discharged home and advised to f/u with TAIL SAWYER To start norethindrone (AYGESTIN) 5 mg tablet 5 mg, Oral, Daily #30 * Phylicia Quispe - 05/02/2025 8:51 AM EDT Pt calling, states was seen at [facility] er over the wknd for continued vaginal bleeding andwas advised to seek farm implement mechanic (unable to find in [facility] website notes) Pls advise documented in this encounter Plan of Treatment Upcoming Encounters Date Type Department Care Team (Late st Contact Info) Description 05/05/2025 3:30 PM EDT Office Visit Obstetrics and [facility]necology - [facility] [address] [place], [place] [phone] Luly Brown DO [address] [place], [place] documented as of this encounter Visit Diagnoses Not on filedocumented in this encounter Care Teams Senior Mobile Solutions Architect Relationship Specialty Start Date End Date Po, MD Gigi [address] [place] [address] Dr [address] [facility] [place] [address] PCP - General Internal Medicine 02/20/16 documented as of this encounter
--- OUTSIDE RECORDS SUMMARY | 2025-05-02 15:12 | XMS_ITS | Patient Health Record ---
Author Organization [facility] Address [address] [place] [address] Care Team Providers Care Operations Director Name Role Phone Bill Miranda Unavailable [phone] Reason For Referral No Information Plan Of Treatment No Information
--- OUTSIDE RECORDS SUMMARY | 2025-05-02 15:12 | XMS_ITS | Clinical Summary ---
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 Active lubiprostone (Amitiza) 8 mcg capsule Active LORazepam (ATIVAN) 0.5 mg tablet Active fluticasone propionate (FLONASE) 50 mcg/actuation nasal spray Active CHOLECALCIFEROL , VITAMIN D3, ORAL Take [...] total) by mouth at bedtime. 5 Active cetirizine (ZyrTEC) 10 mg tablet Take [...] GI. We [place] [facility] will not fax for 48 hours from imaging unless patient goes there to request it. She plans to go today. I explained I will call her if I get the results today, otherwise Dr. Henry will call her next week as he is the ordering provider. She agreed. Hypercholesteremia 04/26/2011 Interstitial cystitis 04/26/2011 Irritable bowel syndrome 04/26/2011 Resolved Problems Problem Noted Date Diagnosed Date Resolved Date Postmenopausal bleeding 02/15/202503/29 Encounters Date Type Department Care Team Description 05/02/2025 Telephone [facility] [address] [phone] Luly Brown DO 04/27/2025 Telephone Ob[facility]s [facility] - [facility] [address] [place] [phone] Luly Brown DO 04/27/2025 Results Follow-Up Obstetrics [facility]cology - [facility] [address] [place] [phone] Fozia Sawant MA 04/25/2025 Telephone Ob[facility]s [facility] - [facility] [address] [place], [place] [address], [place] [address] Luly Brown DO 04/20/2025 9:00 AM EDT - 04/20/2025 10:30 AM EDT Surgery [facility] OR [address] [place] [phone] Luly Brown DO HYSTEROSCOPY with D&C & MYOSURE [01313 (CPT )] 04/20/2025 8:42 AM EDT Anesthesia Event [address] [phone] Feliciano Padilla DO 04/20/2025 7:18 AM EDT - 04/20/2025 11:15 AM EDT Hospital Encounter [address] [phone] Luly Brown DO Postmenopausal bleeding Discharge Disposition: Home or Self Care 04/19/2025 Telephone [facility] [address] [place] [phone] Luly Brown DO 02/17/2025 Telephone [facility] [address] [place] [phone] Luly Brown DO 02/15/2025 2:00 PM EDT Procedure visit Obstetrics & Gynecology - [address] [phone] Luly Brown DO Post-menopausal bleeding (Primary Dx); Endometrial polyp from Last 3 Months Immunizations Immunization Administration Dates Next Due Influenza Quadrivalent, 0.5m [...] high risk HPV; COMMENT: Colpo Aug 2015 GERD (gastroesophageal reflux disease) PONV (postoperative nausea and vomiting) Irregular heart beat Abnormal uterine bleeding (AUB) Family History Medical History Relation Name Comments [...] 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 Para Term AB IAB SAB Ectopic Multiple Livin g Live Births 3 2 2 2 2 Date Outcome GA Total Labor Labor/2nd/3rd Weight Sex Type Anes PTL Su A1 A5 Name Clin 1987 Term M Vag-S pont Living 1993 Term F Vag-S pont Living Last Filed Vital Signs Vital Sign Reading Time Taken Comments Blood Pressure 99/49 04/20/2025 10:16 AM EDT Pulse 61 04/20/2025 10:16 AM EDT Temperature 36.2 C (97.2 F) 04/20/2025 10:16 AM EDT Respiratory Rate 16 04/20/2025 10:16 AM EDT Oxygen Saturation 97% 04/20/2025 10:16 AM EDT Inhaled Oxygen Concentration - - Weight 70.3 kg (155 lb) 04/20/2025 7:45 AM EDT Height 165.1 cm (5' 5 ) 04/20/2025 7:45 AM EDT Body Mass Index 25.79 04/20/2025 7:45 AM EDT Plan of Treatment Upcoming Encounters Date Type Department Care Team (Late st Contact Info) Description 05/05/2025 3:30 PM EDT Office Visit Ob[facility]s [facility] [address] [place] [place] [phone] Luly Brown DO [address] [place], [place] Health Maintenance Due Date Last Done Comments Hepatitis B Vaccines (1 of 3 - 19+ 3-dose series) 1988 Pneumococcal Vaccine: 50+ Years (1 of 1 - PCV) 12/09/2019 Colorectal Cancer Screening: Colonoscopy 04/26/2021 04/26/2011 Cholesterol Screening (Lipid Panel) 07/06/2022 02/26/2012 HIV Screening 07/06/2022 Social Influencers of Health Screening 07/06/2022 Depression Screening 07/28/2024 COVID-19 Vaccine ( season) 2025 12/13/2020, 11/15/2020 Influenza Vaccine (#1) 2025 , 05/12/2023, 05/06/2022, Additional history exists Breast Cancer Screening 08/25/2026 08/25/2024 Cervical Cancer Screening: HPV 10/20/2028 10/21/2023 DTaP,Tdap,and Td Vaccines (3 - Td or Tdap) 03/01/2034 03/01/2024, 11/29/2015 RSV Immunization Adult Patients (1 - 1-dose 75+ series) 2044 Zoster Vaccines Completed 04/03/2023, 10/24/2022 Hepatitis C [...] Procedure Name Priority Date/Time Associated Diagnosis Comments HORTON URINE CULTURE TUBE Routine 04/26/2025 12:01 PM EDT Urinary frequency Pelvic pressure in female URINALYSIS WITH REFLEX MICROSCOPIC AND CULTURE Routine 04/26/2025 12:01 PM EDT Urinary frequency Pelvic pressure in female URINALYSIS WITH REFLEX MICROSCOPIC AND CULTURE Routine 04/26/2025 12:01 PM EDT Urinary frequency Pelvic pressure in female CULTURE URINE Routine 04/26/2025 12:01 PM EDT Urinary frequency Pelvic pressure in female OXYGEN THERAPY, ADULT Routine 04/20/2025 9:19 AM EDT TISSUE EXAM Routine 04/20/2025 9:04 AM EDT Postmenopausal bleeding TH AN LMA(NO CHARGE) Routine 04/20/2025 8:54 AM EDT CA HYSTEROSCOPY W/BIOPSY ENDOMETRIUM AND/OR POLYPECTOMY W/O AND/OR W/D&C 04/20/2025 8:40 AM EDT Postmenopausal bleeding Case Notes ? MYOSURE MG MAMMO DIGITAL DIAGNOSTIC BILAT Routine 08/25/2024 3:11 PM EST HM HPV Routine 10/21/2023 HEPATITIS C SCREENING Routine 10/21/2023 LIPID PANEL Routine 02/26/2012 COLONOSCOPY Routine 04/26/2011 from Last 3 Months or Most Recently Relevant to Health Maintenance Results * (ABNORMAL) Urinalysis with reflex microscopic and culture (04/26/2025 12:01 PM EDT) Specific [place] Urine 1.041(H) 1.003 - 1.030 LAB URINALYSIS - AUTOMATED METHOD 04/26/2025 1:18 PM EDT [facility] pH, Urine 5.0 5.0 - 8.0 pH LAB URINALYSIS - AUTOMATED METHOD 04/26/2025 1:18 PM T [facility] Leukocytes, Urine Moderate(A) Negative LAB URINALYSIS - AUTOMATED METHOD 04/26/2025 1:18 PM T [facility] Nitrite, Urine Negative Negative LAB URINALYSIS - AUTOMATED METHOD 04/26/2025 1:18 PM T [facility] Protein, Urine 100(A) <=Trace mg/dL LAB URINALYSIS - AUTOMATED METHOD 04/26/2025 1:18 PM T [facility] Glucose, Urine Negative Negative mg/dL LAB URINALYSIS - AUTOMATED METHOD 04/26/2025 1:18 PM EDT [facility] Ketones, Urine Trace(A) Negative mg/dL LAB URINALYSIS - AUTOMATED METHOD 04/26/2025 1:18 PM EDT [facility] Urobilinogen , Urine 1.0 0.2 - 1.0 mg/dL LAB URINALYSIS - AUTOMATED METHOD 04/26/2025 1:18 PM EDT [facility] Bilirubin, Urine Negative Negative LAB URINALYSIS - AUTOMATED METHOD 04/26/2025 1:18 PM EDT [facility] Blood, Urine Large(A) Negative LAB URINALYSIS - AUTOMATED METHOD 04/26/2025 1:18 PM [facility] RBC, Urine 3,018.9(H) 0 - 4 /HPF LAB URINALYSIS - AUTOMATED METHOD 04/26/2025 1:18 PM [facility] WBC, Urine 20.0(H) 0 - 4 /HPF LAB URINALYSIS - AUTOMATED METHOD 04/26/2025 1:18 PM T [facility] Squamous Epithelial, Urine 14 0 - 60 /LPF LAB URINALYSIS - AUTOMATED METHOD 04/26/2025 1:18 PM [facility] Bacteria, Urine Negative Negative /HPF LAB URINALYSIS - AUTOMATED METHOD 04/26/2025 1:18 PM [facility] Hyaline Casts, Urine 3.0 0 - 3 /LPF LAB URINALYSIS - AUTOMATED METHOD 04/26/2025 1:18 PM [facility] Urine Urine specimen obtained by clean catch procedure / Unknown Non-blood Collection / Unknown 04/26/2025 12:01 PM EDT 04/26/2025 12:49 PM EDT us Luly Brown DO LAB URINE ORDERABLES Final Re sult [facility] [address] [place] [address], [place] [phone] * [place] urine culture tube (04/26/2025 12:01 PM EDT) Extra Tube Hold for add-ons. 04/26/2025 2:01 PM EDT [facility] Comment:Auto resulted. Urine Urine specimen obtained by clean catch procedure / Unknown Non-blood Collection / Unknown 04/26/2025 12:01 PM EDT 04/26/2025 12:51 PM EDT Luly Stephanie LAB URINE ORDERABLES Final Re sult Performing Organization Address City/[facility]/ZIP Co de Phone Number [facility] [address] [place] [address], [place] [phone] * Culture urine (04/26/2025 12:01 PM EDT) Culture, Urine <10,000 CFU/mL gram negative bacilli, insignificant count, no further workup 04/27/2025 10:00 AM EDT [facility] Urine Urine specimen obtained by clean catch procedure / Unknown Non-blood Collection / Unknown 04/26/2025 12:01 PM EDT 04/26/2025 1:18 PM EDT Luly Stephanie MARIE LAB MICROBIOLOGY - GENERAL OR DERABLES Final Result Performing Organization Address City/[facility]/ZIP Co de Phone Number [facility] [address] [place] [address], [place] [phone] * Tissue exam (04/20/2025 9:04 AM EDT) Final Diagnosis Endometrial polyp, MyoSure resection: Benign endometrial polyp Inactive endometrium 04/21/2025 9:55 AM EDT [facility] Gross Description A. Endometrium, Polyp: Labeled endometri endo- . Received in formalin, in a mesh bag, is a 2.0 x 0.8 x 0.2 cm aggregate of soft to rubbery, garcia-white to pink-red shredded portions of tissue which are wrapped in paper and submitted in toto in one cassette, multiple pieces, x 2. TS 04/21/2025 9:55 AM EDT [facility] Disclaimer Unless otherwise specified, all tissue is 10% NB formalin fixed and paraffin embedded. 04/21/2025 9:55 AM EDT [facility] Tissue Endometrial structure / Unknown 04/20/2025 9:04 AM EDT 04/20/2025 10:20 AM EDT Luly Brown DO LAB PATHOLOGY ORDERABLES Joy l Result [facility] [address] [place] [address], * TH AN LMA(NO CHARGE) (04/20/2025 8:54 AM EDT) Narrative Darcy Nava CRNA - 04/20/2025 8:54 AM EDT Darcy Nava CRNA 04/20/2025 8:54 AM General Information and Staff Patient location during procedure: OR Performed by: Darcy Nava CRNA Authorized by: Feliciano Padilla DO Intubation Airway not difficult Urgency: elective Final Airway Details Number of attempts at approach: 1 Number of other approaches attempted: 0 LMA Size: 4 LMA Type: Unique LMA Seal Pressure: Final airway type: LMA Indications and Patient Condition Indications for airway management: anesthesia Spontaneous ventilation: present Sedation level: Yes Preoxygenated: yes Soft Tissue Damage: No Dentition Unchanged: Yes Patient position: sniffing Mask difficulty assessment: 0 - not attempted Feliciano Padilla DO ANESTHESIA ORDERABLES Final Res ult * MG Mammo Digital Diagnostic bilat (08/25/2024 3:11 PM EST) Anatomical Region Laterality Modality Breast Bilateral Mammography Historical Provider MD OWUSU BI PROCEDURES Final R esult * Hm Cervical Cancer Screening: HPV (10/21/2023) [facility] Cervical Cancer Screening: HPV Negative,A bstracted [facility] Provider HEALTH MAINTENANCE Final Result * Hepatitis C Screening (10/21/2023) [facility] Hepatitis C Screening Abstracted [facility] Provider HEALTH MAINTENANCE Final Result * Lipid panel (02/26/2012) [facility] LDL/HDL Ratio 0 Comment:no interpetation,Abs tracted Triglycerides 0 mg/dL Comment:no interpetation,Abs tracted Cholesterol 0 mg/dL Comment:no interpetation,Abs tracted HDL 0 mg/dL Comment:no interpetation,Abs tracted LDL Cholesterol 0 mg/dL Comment:no interpetation,Abs tracted Blood Venous blood specimen / Unknown Result [facility] Provider LAB BLOOD ORDERABLES Joy l Result * Colonoscopy (04/26/2011) [facility] Colonoscopy no interpreta tion,Abstr acted Anatomical Region Laterality Modality Other [facility] Provider HEALTH MAINTENANCE Final Result from Last 3 Months or Most Recently Relevant to Health Maintenance Insurance [address] [address] [place] [address] HEALTH PLAN Advance Directives * Full Code - Default (Latest Code Status on File) Date Activated Date Inactivated Comments 04/20/2025 7:29 AM 04/20/2025 1:20 PM This is orde r is used when code status has not been discussed with the patient, or code status is otherwise unknown/unconfirmed To update the patient's code status, place a code status order. Do not modify or discontinue any currently active code status orders. Care Teams Machine Woodworking Sander Relationship Specialty Start Date End Date Gigi Barrow MD [address] [place] [address] [address] [facility] [place] [address] PCP - General Internal Medicine 02/20/16
--- OUTSIDE RECORDS SUMMARY | 2025-05-02 15:12 | XMS_ITS | Encounter Summary ---
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 file Not on file Not on file documented as of this encounter Plan of Treatment Upcoming Encounters Date Type Department Care Team (Late Contact Info) Description 05/05/2025 3:30 PM EDT Office Visit Obstetrics [facility]cology - [facility] [address] [place], [place] [phone] Luly Brown DO [address] [place], [place] documented as of this encounter Visit Diagnoses Not on filedocumented in this encounter Care Teams Medical Librarian Relationship Specialty Start Date End Date Po, Lorenver, MD [address] [place] [address] Dr [address] [facility] [place] [address] PCP - General Internal Medicine 02/20/16 documented as of this encounter
== END 2025-05-02 13:22 | disposition home or self-care (01) ==
LOC: HO.HMCH 12:50
PROVIDERS: PCP Internal Medicine; Visit Provider Internal Medicine
DX: R73.02 Impaired glucose tolerance (oral) (principal); K21.9 Gastro-esophageal reflux disease without esophagitis; N30.11 Interstitial cystitis (chronic) with hematuria; F41.1 Generalized anxiety disorder; E78.00 Pure hypercholesterolemia, unspecified; N92.0 Excessive and frequent menstruation with regular cycle

== ENCOUNTER → 2025-05-02 12:50 | Outpatient (BNVA) | payer OTHER, SELFPAY | PROVIDERS: PCP Internal Medicine; Visit Provider Internal Medicine | DX: N95.0 Postmenopausal bleeding (principal); K21.9 Gastro-esophageal reflux disease without esophagitis; R73.02 Impaired glucose tolerance (oral); N30.11 Interstitial cystitis (chronic) with hematuria; F41.1 Generalized anxiety disorder; E78.00 Pure hypercholesterolemia, unspecified; G43.909 Migraine, unspecified, not intractable, without status migrainosus; M54.50 Low back pain, unspecified; K20.90 Esophagitis, unspecified without bleeding | CPT/HCPCS: 99212 ==

== ENCOUNTER 2025-05-03 09:16 | Outpatient (AMB) | payer OTHER, SELFPAY ==
--- OUTSIDE RECORDS SUMMARY | 2025-04-30 10:55 | XMS_ITS | Encounter Summary ---
Author Organization [facility] Address [address] [address] Phone Care Team Providers Care Import And Export Clerk Name Role Phone Gigi Barrow MD Primary Care Provider [phone] Reason for Visit * Reason Comments Vaginal Bleeding Shortness of Breath Fatigue Encounter Details Date Type Department Care Team ([facility] st Contact Info) Description 04/30/2025 10:55 AM EDT - 04/30/2025 2:38 PM EDT Emergency [facility] [address] [place] [address] Paul Alanis MD [address] [place] [address] [email or web address] Discharge Disposition: Home or Self Care Social [...] 10:35 AM EDT Edwardo Yee RN * [place] Suicide Severity Rating Scale (Screener/Recent Self-Report) Question [...] take every day until you see your director of customer service. This should help slow down the bleeding [...] removal and ablation on April 20 in [facility] Who presents to the emergency departmentwith ongoing vaginal bleeding and passing blood clots. Describes going through 3 pads this morning between 7 AM and when she was initially seen around noon. Reports episodes of lightheadedness. Had some chest tightness this morning. Tried to make an appointment with her director of customer service but was unsuccessful. History is provided by [...] , dry PSYCHIATRIC: alert and oriented, anxious TECHNOLOGY TRAINER: Normal external genitalia, moderate amount of blood [...] gynecology who reviewed the patient's [facility] records noting that the pathology [...] life / function threatening cause of symptoms. Patient/statistics tutor was educated on anticipated clinical course, self-care [...] HS Gen5 <6 0 - 9 ng/L [facility] Blood 04/30/2025 12:3 4 PM EDT 04/30/2025 12:51 PM EDT us Paul Alanis MD LAB BLOOD ORDERABLES Final Resu lt [address] [address] * Hold Specimen In Blood Bank (04/30/2025 11:24 AM EDT) Expiration Date of Sample 05/03/2025 ,2359 [facility] Resulting Agency [facility] Blood 04/30/2025 11:2 4 AM EDT 04/30/2025 11:35 AM EDT us Paul Alanis MD BLOOD BANK TEST ORDERABLES Joy l Result Performing Organization Address [facility]/ZIP Co de Phone Number [address] [address] * Troponin (04/30/2025 11:24 AM EDT) Troponin-T, HS Gen5 <6 0 - 9 ng/L [facility] Blood 04/30/2025 11:2 4 AM EDT 04/30/2025 11:34 AM EDT us Paul Alanis MD LAB BLOOD ORDERABLES Final Resu lt Performing Organization Address City/[facility]/ZIP Co de Phone Number [address] [address] * NT-proBNP (04/30/2025 11:24 AM EDT) NT-PROBNP <36 0 - 125 pg/mL [facility] Blood 04/30/2025 11:2 4 AM EDT 04/30/2025 11:34 AM EDT us Paul Alanis MD LAB BLOOD ORDERABLES Final Resu lt Performing Organization Address City/[facility]/ZIP Co de Phone Number [address] [address] * (ABNORMAL) Lipase (04/30/2025 11:24 AM EDT) LIPASE 66(H) 16 - 63 U/L [facility] Blood 04/30/2025 11:2 4 AM EDT 04/30/2025 11:34 AM EDT us Paul Alanis MD LAB BLOOD ORDERABLES Final Resu lt Performing Organization Address [facility] Co de Phone Number [address] [address] * LFTs (hepatic panel) (04/30/2025 11:24 AM EDT) ALKALINE PHOSPHATASE 86 39 - 117 U/L [facility] TOTAL BILIRUBIN 0.3 0.0 - 1.2 mg/dL [facility] DIRECT BILIRUBIN <0.1 0.0 - 0.2 mg/dL [facility] Bilirubin (Indirect) NOT CALCULATED 0 - 1.5 mg/dL [facility] AST 15 0 - 37 U/L [facility] ALT 16 0 - 40 U/L [facility] TOTAL PROTEIN 7.3 6.5 - 8.0 g/dL [facility] ALBUMIN 4.3 3.9 - 4.8 g/dL [facility] GLOBULIN 3.0 1 - 4.8 g/dL [facility] A/G Ratio 1.43 1.00 - 4.80 RATIO [facility] Blood 04/30/2025 11:2 4 AM EDT 04/30/2025 11:34 AM EDT us Paul Alanis MD LAB BLOOD ORDERABLES Final Resu lt Performing Organization Address City/[facility]/ZIP Co de Phone Number [address] [address] * (ABNORMAL) Basic metabolic panel (04/30/2025 11:24 AM EDT) SODIUM 137 133 - 146 mmol/L [facility] CHLORIDE 103 96 - 108 mmol/L [facility] POTASSIUM 4.0 3.3 - 5.1 mmol/L [facility] CO2 23 21 - 35 mmol/L [facility] BUN 16 6 - 19 mg/dL [facility] CREATININE 0.50 0.5 - 1.5 mg/dL [facility] GLUCOSE 105(H) 70 - 99 mg/dL [facility] CALCIUM 9.3 8.4 - 10.3 mg/dL [facility] EGFR 111 >59 mL/min/1.7 3m2 [facility] Comment:Estimated glomerular filtration rate calculated using the CKD-EPI refit equation. ANION GAP 15 10 - 20 mmol/L [facility] Blood 04/30/2025 11:2 4 AM EDT 04/30/2025 11:34 AM EDT us Paul Alanis MD LAB BLOOD ORDERABLES Final Resu lt [address] [address] * CBC and differential (04/30/2025 11:24 AM EDT) WBC 7.92 4.00 - 11.00 K/uL [facility] RBC 4.66 4.00 - 5.20 M/uL [facility] HGB 13.6 12.0 - 16.0 g/dL [facility] HCT 40.7 36.0 - 46.0 % [facility] PLT 337 150 - 450 K/uL [facility] MCV 87.3 80.0 - 100.0 fL [facility] MCH 29.2 27.0 - 31.0 pg [facility] MCHC 33.4 32.0 - 36.0 g/dL [facility] RDW 12.7 11.5 - 14.5 % [facility] MPV 9.7 8.4 - 12.0 fL [facility] NRBC 0.00 0.00 /100 WBCs [facility] ABSOLUTE NRBC 0.00 0.00 K/uL [facility] DIFF METHOD Auto [facility] NEUTS 56.2 48.0 - 76.0 % [facility] LYMPHS 33.3 18.0 - 41.0 % [facility] MONOS 7.4 4.0 - 11.0 % [facility] EOS 2.1 0.0 - 5.0 % [facility] BASOS 0.5 0.0 - 1.5 % [facility] Granulocytes, immature (%) 0.5 0.0 - 0.9 % [facility] ABSOLUTE NEUTS 4.44 1.92 - 7.60 K/uL [facility] ABSOLUTE LYMPHS 2.64 0.72 - 4.10 K/uL [facility] ABSOLUTE MONOS 0.59 0.16 - 1.10 K/uL [facility] ABSOLUTE EOS 0.17 0.00 - 0.50 K/uL [facility] ABSOLUTE BASOS 0.04 0.00 - 0.15 K/uL [facility] Granulocytes, immature 0.04 0.00 - 0.09 K/uL [facility] Blood 04/30/2025 11:2 4 AM EDT 04/30/2025 11:34 AM EDT us Paul Alanis MD LAB BLOOD ORDERABLES Final Resu lt [address] [address] * XR CHEST PA AND LATERAL 2 [...] AM EDT) WBC 0-4(A) NONE SEEN /hpf [facility] RBC 50-100(A) NONE SEEN /hpf [facility] URINE EPITHELIAL 0-4(A) NONE SEEN [facility] MUCUS NONE SEEN NONE SEEN /hpf [facility] BACTERIA Trace(A) NONE SEEN /hpf [facility] 04/30/2025 10:5 9 AM EDT 04/30/2025 11:08 AM EDT us Paul Alanis MD URINE ORDERABLES Final Result [facility] [address] [place] [address] * (ABNORMAL) Urinalysis w/reflex Urine Culture (04/30/2025 10:59 AM EDT) COLOR Yellow Yellow [facility] CLARITY Clear [facility] GLUCOSE Negative Negative [facility] BILI Negative Negative [facility] KETONES Negative Negative [facility] SPECIFIC GRAVITY 1.010 1.005 - 1.030 [facility] BLOOD 3+(A) Negative [facility] PH 6.0 5.0 - 8.0 [facility] Protein-UA Negative Negative [facility] NITRITE Negative Negative [facility] Leukocyte esterase, ur Negative Negative [facility] Urine (Urine) 04/30/2025 10: 59 AM EDT 04/30/2025 11:08 AM EDT us Paul Alanis MD URINE ORDERABLES Final Result Performing Organization Address City/[facility] Co de Phone Number [address] [address] * ECG 12-LEAD (04/30/2025 10:47 AM EDT) Ventricular Rate EKG/MIN 76 BPM [facility] Atrial Rate 76 BPM [facility] W[place] Interval 170 ms [facility] QRS Duration 90 ms [facility] QT Interval 400 ms [facility] QTC Interval 450 ms [facility] P [place] 59 degrees [facility] R Wave [place] 37 degrees [facility] T Wave [place] 60 degrees [facility] 04/30/2025 10:4 7 AM [...] Policy. documented in this encounter Care Teams Import And Export Clerk Relationship Specialty Start Date End Date Po, Gigi Leigh MD [address] [place] [address] [place] [phone] PCP - General Internal Medicine 06/17/21 documented as of this encounter Additional Source Comments The information contained in this document represents components of the legal health record. It is not the complete legal health record.[facility]
--- NOTE | 2025-05-03 09:31 | MHC.OFFVIS ---
Vital Signs 05/03/25 09:32 Height 5 ft 5 in Weight 158 lb 2 oz BMI 26.3 BP 112/74 Blood Pressure Location Rt brachial Position Sitting Pulse 77 Pulse Source Pulse Oximeter Pulse Oximetry (%) 96 Oxygen Delivery Method Room Air Intake Visit Reasons: follow up Intake Note: Patient presents follow up Migraine. Patient states migraines have been really bad. Not any any medications for migraines except motrin. Gets daily migraines(mostly when next acts up). Accompanied by: Self / Same As Patient Allergies latex (Latex) Allergy (Mild, Verified 05/03/25 09:34) SWELLING/ITCHING Sulfa (Sulfonamide Antibiotics) Allergy (Mild, Verified 05/03/25 09:34) SWELLING/ITCHING, pruritis sulfamethoxazole (From BACTRIM) Allergy (Unknown, Verified 05/03/25 09:34) ITCHY/HIVES trimethoprim (From BACTRIM) Allergy (Unknown, Verified 05/03/25 09:34) ITCHY/HIVES milk Allergy (Verified 05/03/25 09:34) Stomach Upset metoclopramide (From REGLAN) Adverse Reaction (Unknown, Verified 05/03/25 09:34) AGITATION HPI Comments Details: 54 y/o female comes for follow up of Chronic Migraines. 20 April 2025, Laparsocopy for Endometriosis and Uterine polyps, [facility] [place]. She snores loudly and has multiple arousals at night, she goes to bed at midnight and does not fall asleep, tosses and turns until 2 am. She then watches tv or reads unitl finally falling asleep around 3am. Pt. continues to have daily migraines, 9/10 severity, radiating temporally to the trapezius, bilaterally. She has cervicalgia, moving her neck to the sides to look at traffic while driving causes intense pain. She takes a muscle relaxer and this can relieve her symptoms for 2 hours, however pain always persists never resolves. She denies photophobia/phonophobia, nausea, vomiting, she has dizziness and vertigo, denies balance and or gait difficulties. She denies vision changes and auras. She takes tylenol otc 500mg x2 capsules. She uses peppermint on her temples and an ointment with eucalyptus as this decreases the symptoms of migraines. She had PT with chiropractic adjustments and her migraine symptoms improved after these hands on therapies. She has difficulty remembering facts, and names, recalling words, describing places. She has brain fog and is slow to process. She continues to have RLS symptoms, of paresthesias and an uncomfortable throbbing urge to move her legs at night, she has spasms and this makes her jump out of bed to stretch the calves and feet. Gabapentin made her drowsy, so she now only uses topical ointments such as Rest less leg creams and Magnalife, tiger balm topically. We also discussed weighted blankets, and capsicum / lidocain patches. Her mood is stable, diet tends to be challenging as she eats many fatty foods and then feels bloated. Significant pt. education is provided re: cervical neck pain, and migraine burden control. [facility] Medical History SOB (shortness of breath) Annual physical exam Urinary incontinence Post-nasal drip Cough Cervicalgia Vertigo Sprain of left medial ankle joint Hordeolum external Dizziness Migraine Tubular adenoma of colon Calcium oxalate crystals in urine Varicose veins of legs Heart palpitations Multiple pigmented nevi Mild carpal tunnel syndrome of right wrist Chronic idiopathic constipation Tachycardia Shoulder pain, bilateral Upper abdominal pain Pre-op examination Mass of left upper extremity Left arm swelling Laceration of left hand Lightheadedness Otitis media Otitis externa Bilateral hand numbness Upper respiratory infection Low back pain Breast cancer screening by mammogram Thyroid nodule Oropharyngeal dysphagia UTI (urinary tract infection) Right kidney stone COVID-19 Chest pain Delayed gastric emptying Daytime sleepiness Snoring Migraine Unspecified Eustachian tube disorder, left ear Acute pharyngitis Urgency of micturition Abdominal pain Dysuria Diarrhea Hematuria Acute conjunctivitis of left eye Wound of right leg Abdominal cramping Allergic conjunctivitis Nephrolithiasis Colitis Interstitial cystitis Chronic cough COVID-19 long hauler COVID-19 Elevated lipase Pain in both knees Vaginal itching Suprapubic pain Vaginal spotting Hematuria Frequency of micturition Myalgia Post-vaccination reaction Palpitations Bilateral lower extremity pain Hearing deficit Frequency of micturition Toe swelling Toe pain, right Vitamin B12 deficiency Scalp cyst Vitamin D deficiency GERD (gastroesophageal reflux disease) Multiple thyroid nodules Lateral meniscal tear Restrictive lung disease Benign hematuria Hemorrhoids Irritable bowel syndrome Cervical disc herniation Impaired glucose tolerance Hypercholesterolemia Erosive esophagitis Surgical History H/O cervical polypectomy Hx of colonoscopy H/O esophagogastroduodenoscopy S/P excision of lipoma Hx of tubal ligation History of lumpectomy of left breast Family History Father Skin cancer Mother Skin cancer High blood pressure Heart problem Maternal Grandfather Skin cancer Cancer FH: prostate cancer Brother Schizophrenia Other CVA (cerebral vascular accident) Mental health problem Social History Household Members: None Housing: Apartment Alcohol intake: never Patient Tobacco Use Status: Former Tobacco user Tobacco use type: Cigarette Years Smoked: quit 2007 e-Cigarette/Vaping Use: Never Used Second Hand Smoke Exposure: Yes service: No Current occupational status: employed 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 Current occupational exposures/hazards: No Cognitive needs: No Hearing needs: No Vision needs: No Physical Exam Vital Signs: Last Vital Signs Pulse 77 05/03/25 09:32 BP 112/74 05/03/25 09:32 Pulse Ox 96 05/03/25 09:32 Oxygen Delivery Method Room Air 05/03/25 09:32 BMI result Body Mass Index 26.3 Const General: cooperative and no acute distress Nutritional Appearance: average body habitus Orientation/consciousness: patient oriented x3 Limitations: language barrier (switches from bolivian to turkmen to bolivian) HEENT Face and sinus: Yes face symmetric Teeth and gingiva: other (mallampti score is 3) Eyes Pupils: Equal, round and reactive pupils present Neck Other: limited rom Neck: Yes torticollis Resp Effort & Inspection: normal respiratory effort and able to speak in complete sentences Neuro Other: stiffness in the neck trapezius, upon flexion/ ext/ lateral rotation limited torticollis General: patient oriented x3 Cranial nerves: Yes Equal, round and reactive pupils present, Yes Normal accommodation reflex present and Yes Normal facial strength present Gait exam (Neuro): Normal gait present Motor exam (neuro): 5/5 motor strength present throughout and Normal motor muscle tone present throughout Psych Appearance: grossly normal Attitude: cooperative Results Reviewed Results Reviewed: labs reviewed with pt Assessment & Plan Assessment & Plan (1) Excessive daytime sleepiness: Code(s): G47.19 - Other hypersomnia Category: Medical (2) Daytime sleepiness: Code(s): R40.0 - Somnolence Category: Medical (3) Loud snoring: Code(s): R06.83 - Snoring Category: Medical (4) Memory change: Code(s): R41.3 - Other amnesia Category: Medical (5) Cervicalgia: Code(s): M54.2 - Cervicalgia Category: Medical (6) Vertigo: Comment: ? BPPV ? related to cervical spasm Code(s): R42 - Dizziness and giddiness Category: Medical (7) Migraine: Code(s): G43.909 - Migraine, unspecified, not intractable, without status migrainosus Category: Medical Qualifiers: Migraine type: chronic migraine (15 or more days per month) without aura Status migrainosus presence: without status migrainosus Intractability: intractable Qualified Code(s): G43.719 - Chronic migraine without aura, intractable, without status migrainosus (8) Snoring: Code(s): R06.83 - Snoring Category: Medical (9) Cervical spine arthritis with nerve pain: Comment: bulging disc, herniated, disc, with endplate spurs no foraminal stenosis. Code(s): M47.812 - Spondylosis without myelopathy or radiculopathy, cervical region; M79.2 - Neuralgia and neuritis, unspecified Category: Medical (10) Vitamin D deficiency: Code(s): E55.9 - Vitamin D deficiency, unspecified Category: Medical (11) Hx of migraines: Code(s): Z86.69 - Personal history of other diseases of the nervous system and sense organs Category: Medical (12) Stiff neck: Code(s): M43.6 - Torticollis Category: Medical Plan Daytime fatigue PSG to r/o SHAWN Snoring Sleep dentistry for oral / mandibular device evaluation. PT Cervicalgia / neck stiffness will evaluate with PT in hopes of improving rom, continue 5mg PO Baclofen for neck pain. If you are out of Baclofen, you may continue to use Cyclobenzaprine / Flexiril 5mg po daily for neck stiffness and trapezius pain. Migraines Episodic will start her on Sumatriptan 50mg po at the onset of migraine and may take one additional tablet if migraine does not abort. Do not exceed more than 200mg in a 24 hour period. Continue to take magnesium 400 mg qhs. Continue to take B2 200mg po qhs. may adjunt with otc tylenol. Use a migraine cap, keep in fridge / freezer, put on head/ forehead / and lay down for 20 min as needed with lights off in a quiet room. MRI head for cognitive changes, more forgetful, will monitor. Labs B12/ Vit D/ MMA Homocysteine / Iron studies Orders: Orders RT PSG in-lab sleep study Today G47.19 - Other hypersomnia MR head/brain wo con Today R41.3 - Other amnesia PT Evaluation and Treatment Today M43.6 - Torticollis, M54.2 - Cervicalgia Referrals Dentistry Referral R06.83 - Snoring Medications: New riboflavin (vitamin B2) 100 mg PO DAILY 120 tabs 2RF migraines 4 months MDD 100mg po Z86.69 - Personal history of other diseases of the nervous system and sense organs ferrous sulfate 325 mg PO DAILY 90 tabs 3RF low iron 3 months MDD 325mg po G47.19 - Other hypersomnia sumatriptan succinate take 1 tab at onset of headache; if no relief may repeat 1 tab after at least 2 hrs; max = 4 tabs/24 hr PO 14 tabs 0RF migraines 1 month MDD 200 M47.812 - Spondylosis without myelopathy or radiculopathy, cervical region, M79.2 - Neuralgia and neuritis, unspecified, Z86.69 - Personal history of other diseases of the nervous system and sense organs Patient Instructions: Sleep Hygiene provided: set a scheduled bedtime and wake time to help regulate the circadian rhythm and balance the release of pituitary hormones. Sleep in a dark room, temperatures below 68 degrees, and no devices n bed. Limit caffeinated products 6 hours prior to bed, and limit fluids 2-4 hours prior to bed. Gentle night yoga, diffusing essential oils, and playing soft music can be relaxing. May take baclofen 5mg for neck pain, stiff and tight muscles. May take cyclobenzaprine if you no longer have Baclofen 5mg po for neck stiffness and tight muscles. Start Sumatriptan at the onset of headache may take one 50mg tablet if headache does not abort you may take one additional tablet within 2 hours of the first dose. Do not exceed 4 tablets in a 24 hour period . F/U with PT for cervicalgia, try warm compresses on the neck or ice packs, you may alternate. Coding Level of Care Code Est Pt Level 4 (99960) Complex EM visit Add On G2211 Diagnoses Excessive daytime sleepiness G47.19 Daytime sleepiness R40.0 Loud snoring R06.83 Memory change R41.3 Cervicalgia M54.2 Vertigo R42 Intractable chronic migraine without aura and without status migrainosus G43.719 Migraine type: chronic migraine (15 or more days per month) without aura Status migrainosus presence: without status migrainosus Intractability: intractable Snoring R06.83 Cervical spine arthritis with nerve pain M47.812; M79.2 Vitamin D deficiency E55.9 Hx of migraines Z86.69 Stiff neck M43.6
[2025-05-03 09:32] VITALS: BP 112/74; PULSE 77; O2SAT 96; BMI 26.3
--- OUTSIDE RECORDS SUMMARY | 2025-05-03 10:16 | XMS_ITS | Clinical Summary ---
Author Organization [facility] Address [address] [address] Phone Care Team Providers Care Lamina Searcher Name Role Phone Gigi Barrow MD Primary Care Provider [phone] Allergies Active Allergy Reactions Criticality Noted Date Comments Sulfamethoxazole-Trimethoprim Rash Low 2024 Latex 06/17/2021 Metoclopramide Hcl 06/17/2021 Sulfa (Sulfonamide Antibiotics) 05/29 Medications norethindrone (AYGESTIN) 5 mg tablet Take 1 tablet (5 mg total) by mouth daily. 30 tablet 04/30/2025 Active Encounters Date Type Department Care Team Description 04/30/2025 10:55 AM EDT - 04/30/2025 2:38 PM EDT Emergency [facility] [address] [place] [address] Paul Alanis MD Discharge Disposition: Home or [...] HS Gen5 <6 0 - 9 ng/L [facility] Blood 04/30/2025 12:3 4 PM EDT 04/30/2025 12:51 PM EDT us Paul Alanis MD LAB BLOOD ORDERABLES Final Resu lt [facility] [address] [place] [address] * Hold Specimen In Blood Bank (04/30/2025 11:24 AM EDT) Expiration Date of Sample 05/03/2025 ,2359 [facility] Resulting Agency [facility] Blood 04/30/2025 11:2 4 AM EDT 04/30/2025 11:35 AM EDT us Paul Alanis MD BLOOD BANK TEST ORDERABLES Joy l Result Performing Organization Address City/[facility]/ZIP Co de Phone Number [address] [address] * LFTs (hepatic panel) (04/30/2025 11:24 AM EDT) ALKALINE PHOSPHATASE 86 39 - 117 U/L [facility] TOTAL BILIRUBIN 0.3 0.0 - 1.2 mg/dL [facility] DIRECT BILIRUBIN <0.1 0.0 - 0.2 mg/dL [facility] Bilirubin (Indirect) NOT CALCULATED 0 - 1.5 mg/dL [facility] AST 15 0 - 37 U/L [facility] ALT 16 0 - 40 U/L [facility] TOTAL PROTEIN 7.3 6.5 - 8.0 g/dL [facility] ALBUMIN 4.3 3.9 - 4.8 g/dL [facility] GLOBULIN 3.0 1 - 4.8 g/dL [facility] A/G Ratio 1.43 1.00 - 4.80 RATIO [facility] Blood 04/30/2025 11:2 4 AM EDT 04/30/2025 11:34 AM EDT us Paul Alanis MD LAB BLOOD ORDERABLES Final Resu lt Performing Organization Address City/[facility]/ZIP Co de Phone Number [address] [address] * CBC and differential (04/30/2025 11:24 AM EDT) WBC 7.92 4.00 - 11.00 K/uL [facility] RBC 4.66 4.00 - 5.20 M/uL [facility] HGB 13.6 12.0 - 16.0 g/dL [facility] HCT 40.7 36.0 - 46.0 % [facility] PLT 337 150 - 450 K/uL [facility] MCV 87.3 80.0 - 100.0 fL [facility] MCH 29.2 27.0 - 31.0 pg [facility] MCHC 33.4 32.0 - 36.0 g/dL [facility] RDW 12.7 11.5 - 14.5 % [facility] MPV 9.7 8.4 - 12.0 fL [facility] NRBC 0.00 0.00 /100 WBCs [facility] ABSOLUTE NRBC 0.00 0.00 K/uL [facility] DIFF METHOD Auto [facility] NEUTS 56.2 48.0 - 76.0 % [facility] LYMPHS 33.3 18.0 - 41.0 % [facility] MONOS 7.4 4.0 - 11.0 % [facility] EOS 2.1 0.0 - 5.0 % [facility] BASOS 0.5 0.0 - 1.5 % [facility] Granulocytes, immature (%) 0.5 0.0 - 0.9 % [facility] ABSOLUTE NEUTS 4.44 1.92 - 7.60 K/uL [facility] ABSOLUTE LYMPHS 2.64 0.72 - 4.10 K/uL [facility] ABSOLUTE MONOS 0.59 0.16 - 1.10 K/uL [facility] ABSOLUTE EOS 0.17 0.00 - 0.50 K/uL [facility] ABSOLUTE BASOS 0.04 0.00 - 0.15 K/uL [facility] Granulocytes, immature 0.04 0.00 - 0.09 K/uL [facility] Blood 04/30/2025 11:2 4 AM EDT 04/30/2025 11:34 AM EDT us Paul Alanis MD LAB BLOOD ORDERABLES Final Resu lt [facility] [address] [place] [address] * NT-proBNP (04/30/2025 11:24 AM EDT) NT-PROBNP <36 0 - 125 pg/mL [facility] Blood 04/30/2025 11:2 4 AM EDT 04/30/2025 11:34 AM EDT us Paul Alanis MD LAB BLOOD ORDERABLES Final Resu lt Performing Organization Address City/[facility]/ZIP Co de Phone Number [address] [address] * (ABNORMAL) Lipase (04/30/2025 11:24 AM EDT) Pathologist [facility] LIPASE 66(H) 16 - 63 U/L [facility] Blood 04/30/2025 11:2 4 AM EDT 04/30/2025 11:34 AM EDT us Paul Alanis MD LAB BLOOD ORDERABLES Final Resu lt Performing Organization Address City/[facility] Co de Phone Number [address] [address] * (ABNORMAL) Basic metabolic panel (04/30/2025 11:24 AM EDT) Pathologist [facility] SODIUM 137 133 - 146 mmol/L [facility] CHLORIDE 103 96 - 108 mmol/L [facility] POTASSIUM 4.0 3.3 - 5.1 mmol/L [facility] CO2 23 21 - 35 mmol/L [facility] BUN 16 6 - 19 mg/dL [facility] CREATININE 0.50 0.5 - 1.5 mg/dL [facility] GLUCOSE 105(H) 70 - 99 mg/dL [facility] CALCIUM 9.3 8.4 - 10.3 mg/dL [facility] EGFR 111 >59 mL/min/1.7 3m2 [facility] Comment:Estimated glomerular filtration rate calculated using the CKD-EPI refit equation. ANION GAP 15 10 - 20 mmol/L [facility] Blood 04/30/2025 11:2 4 AM EDT 04/30/2025 11:34 AM EDT us Paul Alanis MD LAB BLOOD ORDERABLES Final Resu lt [facility] [address] [place] [address] * XR CHEST PA AND LATERAL 2 VIEWS (04/30/2025 11:23 AM EDT) Anatomical Region Laterality Modality Chest Computed Radiogr aphy 04/30/2025 12:1 5 PM EDT Impressions 04/30/2025 12:15 PM EDT No acute abnormality. Narrative 04/30/2025 12:15 PM EDT XR CHEST PA AND LATERAL 2 VIEWS Referring clinician's provided indication for this examination in [facility]: Dyspnea (Shortness of Breath) COMPARISON: None FINDINGS: Devices/Tubes/Lines: None. Lungs: No focal consolidation or pulmonary edema. Pleura: No pleural effusion or pneumothorax. Heart/Mediastinum: Normal heart and mediastinum. Bones/Soft Tissues: Mild thoracic spine degenerative changes. Procedure Note Anastacio Martin MD, PhD - 04/30/2025 XR CHEST PA AND LATERAL 2 VIEWS Referring clinician's provided indication for this examination in [facility]:Dyspnea (Shortness of Breath) COMPARISON: None FINDINGS: Devices/Tubes/Lines: None. Lungs: No focal consolidation or pulmonary edema. Pleura: No pleural effusion or pneumothorax. Heart/Mediastinum: Normal heart and mediastinum. Bones/Soft Tissues: Mild thoracic spine degenerative changes. IMPRESSION: No acute abnormality. us Paul Alanis MD IMG XR CHEST Final Result * (ABNORMAL) Urinalysis w/reflex Urine Culture (04/30/2025 10:59 AM EDT) COLOR Yellow Yellow [facility] CLARITY Clear [facility] GLUCOSE Negative Negative [facility] BILI Negative Negative [facility] KETONES Negative Negative [facility] SPECIFIC GRAVITY 1.010 1.005 - 1.030 [facility] BLOOD 3+(A) Negative [facility] PH 6.0 5.0 - 8.0 [facility] Protein-UA Negative Negative [facility] NITRITE Negative Negative [facility] Leukocyte esterase, ur Negative Negative [facility] Urine (Urine) 04/30/2025 10: 59 AM EDT 04/30/2025 11:08 AM EDT us Paul Alanis MD URINE ORDERABLES Final Result Performing Organization Address [facility] Co de Phone Number [address] [address] * (ABNORMAL) Urine sediment (04/30/2025 10:59 AM EDT) WBC 0-4(A) NONE SEEN /hpf [facility] RBC 50-100(A) NONE SEEN /hpf [facility] URINE EPITHELIAL 0-4(A) NONE SEEN [facility] MUCUS NONE SEEN NONE SEEN /hpf [facility] BACTERIA Trace(A) NONE SEEN /hpf [facility] 04/30/2025 10:5 9 AM EDT 04/30/2025 11:08 AM EDT us Paul Alanis MD URINE ORDERABLES Final Result Performing Organization Address [facility] Co de Phone Number [address] [address] * ECG 12-LEAD (04/30/2025 10:47 AM EDT) Ventricular Rate EKG/MIN 76 BPM [facility] Atrial Rate 76 BPM [facility] KS Interval 170 ms [facility] QRS Duration 90 ms [facility] QT Interval 400 ms [facility] QTC Interval 450 ms [facility] P Enterprise 59 degrees [facility] R Wave Enterprise 37 degrees [facility] T Wave Enterprise 60 degrees [facility] 04/30/2025 10:4 7 AM EDT 05/01/2025 9:20 AM EDT Narrative [facility] - 05/01/2025 9:20 AM EDT Normal sinus rhythm Low voltage QRS Borderline ECG No previous ECGs available Confirmed by Kvng DUONG ([id number]) on 05/01/2025 9:20:53 AM us Paul Alanis MD ECG ORDERABLES Final Result [facility]_REMA from Last 3 Months Insurance [facility] ACO [facility] [place] [address] [place] [address] [place] [address] [place] [address] [address] [place] [address] ACO Care Teams Lamina Searcher Relationship Specialty Start Date End Date Gigi Barrow MD [address] [place] [address] Drive [address] [place] [id number] PCP - General Internal Medicine 06/17/21 Additional Source Comments The information contained in this document represents components of the legal health record. It is not the complete legal health record.[facility]
--- OUTSIDE RECORDS SUMMARY | 2025-05-03 10:16 | XMS_ITS | Encounter Summary ---
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 She is still having some bleeding, taking norethindrone as prescribed. Will f/u as scheduled. Pt was seen at [facility] (see CareEverywhere for note). Pt here for [...] removal and ablation on April 20 in [facility] Who presents to the emergency departmentwith ongoing vaginal bleeding and passing blood clots. Describes going through 3 pads this morning between 7 AM and when she was initially seen around noon. Reports episodes of lightheadedness. Had some chest tightness this morning. Tried to make an appointment with her web site manager but was unsuccessful. SENIOR CONSTRUCTION PROJECT MANAGER: Normal external genitalia, moderate amount of blood in vaginal vault with clots I independently interpreted the labs --reassuring CBC with hemoglobin 13.6. Normal serial troponins. Normal chemistries. Normal BNP I consulted / discussed management and/or disposition with gynecology who reviewed the patient's [facility] records noting that the pathology was [...] discharged home and advised to f/u with SENIOR CONSTRUCTION PROJECT MANAGER To start norethindrone (AYGESTIN) 5 mg tablet 5 mg, Oral, Daily #30 * Phylicia Quispe - 05/02/2025 8:51 AM EDT Pt calling, states was seen at [facility] over the wknd for continued vaginal bleeding andwas advised to seek ornithology teacher (unable to find in [facility] website notes) Pls advise documented in this encounter Plan of Treatment Upcoming Encounters Date Type Department Care Team (Late st Contact Info) Description 05/05/2025 3:30 PM EDT Office Visit Obstetrics [facility]necology [facility] [address] [place], [place] [phone] Luly Brown DO [address] [place], [place] documented as of this encounter Visit Diagnoses Not on filedocumented in this encounter Care Teams Room Service Manager Relationship Specialty Start Date End Date Po, MD Gigi [address] [place] [address] Dr [address] [facility] [place] [address] PCP - General Internal Medicine 02/20/16 documented as of this encounter
--- OUTSIDE RECORDS SUMMARY | 2025-05-03 10:16 | XMS_ITS | Patient Health Record ---
Author Organization [facility] Address [address] [place] [address] Care Team Providers Care Glass Designer Name Role Phone Bill Miranda Unavailable [phone] Reason For Referral No Information Plan Of Treatment No Information
--- OUTSIDE RECORDS SUMMARY | 2025-05-03 10:16 | XMS_ITS | Encounter Summary ---
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 Not on file Not on file documented as of this encounter Plan of Treatment Upcoming Encounters Date Type Department Care Team (Late Contact Info) Description 05/05/2025 3:30 PM EDT Office Visit Obstetrics and [facility]necology - [facility] [address] [place], [place] [phone] Luly Brown DO [address] [place], [place] documented as of this encounter Visit Diagnoses Not on filedocumented in this encounter Care Teams Mva Still Operator Relationship Specialty Start Date End Date Po, Lorenver, MD [address] [place] [address] Dr [address] [facility] [place] [address] PCP - General Internal Medicine 02/20/16 documented as of this encounter
--- OUTSIDE RECORDS SUMMARY | 2025-05-03 10:16 | XMS_ITS | Clinical Summary ---
Author Organization [facility] Address [address] [place] [address] Phone Care Team Providers Care Nurse Licensed Practical Name Role Phone Gigi Barrow MD Primary Care Provider [phone] Allergies Active Allergy Reactions Criticality Noted Date [...] GI. We [place] [facility] will [place] for 48 [...] Gynecology - [facility] [address] [place] [phone] Luly Brown DO 04/27/2025 Telephone Obstetrics and Gynecology - [facility] [address] [place] [place], [place] [phone] Luly Brown DO 04/27/2025 Results Follow-Up Obstetrics and Gynecology - [facility] [address] [place] [place] [phone] Fozia Sawant MA 04/25/2025 Telephone Obstetrics and Gynecology - [facility] [address] [place], [place] [address] [phone] Luly Brown DO 04/20/2025 9:00 AM EDT - 04/20/2025 10:30 AM EDT Surgery [facility] OR [address] [place] [phone] Luly Brown DO HYSTEROSCOPY with D&C & MYOSURE [49460 (CPT )] 04/20/2025 8:42 AM EDT Anesthesia Event [address] [phone] Feliciano Padilla DO 04/20/2025 7:18 AM EDT - 04/20/2025 11:15 AM EDT Hospital Encounter [address] [phone] Luly Brown DO Postmenopausal bleeding Discharge Disposition: Home or Self Care 04/19/2025 [facility] [address] [place] [phone] Luly Brown DO 02/17/2025 Tele[facility] [address] [place] [phone] Luly Brown DO 02/15/2025 2:00 PM EDT Procedure visit Obstetrics & Gynecology - [address] [phone] Luly Brown DO Post-menopausal bleeding (Primary Dx); [...] 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 Not on file [...] Visit Obstetrics and [facility]necology - [facility] [address] [place] [phone] Luly Brown DO [address] [place], [place] Health Maintenance Due Date Last Done [...] LMA(NO CHARGE) Routine 04/20/2025 8:54 AM EDT CO HYSTEROSCOPY W/BIOPSY ENDOMETRIUM AND/OR POLYPECTOMY W/O AND/OR [...] and culture (04/26/2025 12:01 PM EDT) Specific [employer] Urine 1.041(H) 1.003 - 1.030 LAB URINALYSIS - AUTOMATED METHOD 04/26/2025 1:18 PM EDT [facility] pH, Urine 5.0 5.0 - 8.0 pH LAB URINALYSIS - AUTOMATED METHOD 04/26/2025 1:18 PM T [facility] Leukocytes, Urine Moderate(A) Negative LAB URINALYSIS - AUTOMATED METHOD 04/26/2025 1:18 PM T [facility] Nitrite, Urine Negative Negative LAB URINALYSIS - AUTOMATED METHOD 04/26/2025 1:18 PM T [facility] Protein, Urine 100(A) <=Trace mg/dL LAB URINALYSIS - AUTOMATED METHOD 04/26/2025 1:18 PM T [facility] Glucose, Urine Negative Negative mg/dL LAB URINALYSIS - AUTOMATED METHOD 04/26/2025 1:18 PM EDT [facility] Ketones, Urine Trace(A) Negative mg/dL LAB URINALYSIS - AUTOMATED METHOD 04/26/2025 1:18 PM EDT [facility] Urobilinogen , Urine 1.0 0.2 - 1.0 mg/dL LAB URINALYSIS - AUTOMATED METHOD 04/26/2025 1:18 PM EDT [facility] Bilirubin, Urine Negative Negative LAB URINALYSIS - AUTOMATED METHOD 04/26/2025 1:18 PM EDT [facility] Blood, Urine Large(A) Negative LAB URINALYSIS - AUTOMATED METHOD 04/26/2025 1:18 PM [facility] RBC, Urine 3,018.9(H) 0 - 4 /HPF LAB URINALYSIS - AUTOMATED METHOD 04/26/2025 1:18 PM [facility] WBC, Urine 20.0(H) 0 - 4 /HPF LAB URINALYSIS - AUTOMATED METHOD 04/26/2025 1:18 PM T [facility] Squamous Epithelial, Urine 14 0 - 60 /LPF LAB URINALYSIS - AUTOMATED METHOD 04/26/2025 1:18 PM [facility] Bacteria, Urine Negative Negative /HPF LAB URINALYSIS - AUTOMATED METHOD 04/26/2025 1:18 PM [facility] Hyaline Casts, Urine 3.0 0 - 3 /LPF LAB URINALYSIS - AUTOMATED METHOD 04/26/2025 1:18 PM [facility] Urine Urine specimen obtained by clean catch procedure / Unknown Non-blood Collection / Unknown 04/26/2025 12:01 PM EDT 04/26/2025 12:49 PM EDT us Luly Brown DO LAB URINE ORDERABLES Final Re sult [facility] [address] [place] [address], [place] [phone] * [place] urine culture tube (04/26/2025 12:01 PM EDT) Extra Tube Hold for add-ons. 04/26/2025 2:01 PM EDT [facility] Comment:Auto resulted. Urine Urine specimen obtained by clean catch procedure / Unknown Non-blood Collection / Unknown 04/26/2025 12:01 PM EDT 04/26/2025 12:51 PM EDT Luly Stephanie LAB URINE ORDERABLES Final Re sult Performing Organization Address City/[facility]/ZIP Co de Phone Number [facility] [address] [place] [address], [place] [phone] * Culture urine (04/26/2025 12:01 PM EDT) Culture, Urine <10,000 CFU/mL gram negative bacilli, insignificant count, no further workup 04/27/2025 10:00 AM EDT [facility] Urine Urine specimen obtained by clean catch procedure / Unknown Non-blood Collection / Unknown 04/26/2025 12:01 PM EDT 04/26/2025 1:18 PM EDT Luly Stephanie MARIE LAB MICROBIOLOGY - GENERAL OR DERABLES Final Result Performing Organization Address City/[facility]/ZIP Co de Phone Number [facility] [address] [place] [address], [place] [phone] * Tissue exam (04/20/2025 9:04 AM EDT) Final Diagnosis Endometrial polyp, MyoSure resection: Benign endometrial polyp Inactive endometrium 04/21/2025 9:55 AM EDT [facility] Gross Description A. Endometrium, Polyp: Labeled endometri endo- . Received in formalin, in a mesh bag, is a 2.0 x 0.8 x 0.2 cm aggregate of soft to rubbery, garcia-white to pink-red shredded portions of tissue which are wrapped in paper and submitted in toto in one cassette, multiple pieces, x 2. TS 04/21/2025 9:55 AM EDT [facility] Disclaimer Unless otherwise specified, all tissue is 10% NB formalin fixed and paraffin embedded. 04/21/2025 9:55 AM EDT [facility] Tissue Endometrial structure / Unknown 04/20/2025 9:04 AM EDT 04/20/2025 10:20 AM EDT Luly Brown DO LAB PATHOLOGY ORDERABLES Joy l Result [facility] [address] [place] [address], * TH AN LMA(NO CHARGE) (04/20/2025 8:54 [...] * Hm Cervical Cancer Screening: HPV (10/21/2023) [facility] Cervical Cancer Screening: HPV Negative,A bstracted [facility] Provider HEALTH MAINTENANCE Final Result * Hepatitis C Screening (10/21/2023) [facility] Hepatitis C Screening Abstracted [facility] Provider HEALTH MAINTENANCE Final Result * Lipid panel (02/26/2012) [facility] LDL/HDL Ratio 0 Comment:no interpetation,Abs tracted Triglycerides 0 mg/dL Comment:no interpetation,Abs tracted Cholesterol 0 mg/dL Comment:no interpetation,Abs tracted HDL 0 mg/dL Comment:no interpetation,Abs tracted LDL Cholesterol 0 mg/dL Comment:no interpetation,Abs tracted Blood Venous blood specimen / Unknown Result [facility] Provider LAB BLOOD ORDERABLES Joy l Result * Colonoscopy (04/26/2011) [facility] Colonoscopy no interpreta tion,Abstr acted Anatomical Region Laterality Modality Other [facility] Provider HEALTH MAINTENANCE Final Result from Last 3 Months or Most Recently Relevant to Health Maintenance [place] [address] [place] [address] HEALTH PLAN Advance Directives * Full Code [...] currently active code status orders. Care Teams Nurse Licensed Practical Relationship Specialty Start Date End Date Gigi Barrow MD [address] [place] [address] [address] [facility] [place] [address] PCP - General Internal Medicine 02/20/16
== END 2025-05-03 10:22 | disposition home or self-care (01) ==
LOC: HO.HSMS 09:16
PROVIDERS: PCP Internal Medicine; Visit Provider Physician Assistant Medical
DX: G47.19 Other hypersomnia (principal); R40.0 Somnolence; R06.83 Snoring; R41.3 Other amnesia; M54.2 Cervicalgia; R42 Dizziness and giddiness; G43.719 Chronic migraine without aura, intractable, without status migrainosus; M47.812 Spondylosis without myelopathy or radiculopathy, cervical region; M79.2 Neuralgia and neuritis, unspecified; E55.9 Vitamin D deficiency, unspecified; Z86.69 Personal history of other diseases of the nervous system and sense organs; M43.6 Torticollis
CPT/HCPCS: 99214

== ENCOUNTER → 2025-05-03 09:16 | Outpatient (BNVA) | payer OTHER, SELFPAY | PROVIDERS: PCP Internal Medicine; Visit Provider Physician Assistant Medical | DX: G43.719 Chronic migraine without aura, intractable, without status migrainosus (principal); G47.19 Other hypersomnia; R40.0 Somnolence; R06.83 Snoring; R41.3 Other amnesia; R42 Dizziness and giddiness; Z86.69 Personal history of other diseases of the nervous system and sense organs; M54.2 Cervicalgia; M43.6 Torticollis; M47.812 Spondylosis without myelopathy or radiculopathy, cervical region; M79.2 Neuralgia and neuritis, unspecified; E55.9 Vitamin D deficiency, unspecified | CPT/HCPCS: 99212 ==

== ENCOUNTER 2025-05-30 10:10 | Outpatient (REF) | payer OTHER, SELFPAY ==
[2025-05-30 11:18] LABS: MANUAL DIFF FLAG NO
[2025-05-30 11:54] LABS: Hematocrit 42.8 % (37.0-47.0); Hemoglobin 14.0 g/dl (12.0-16.0); Imm Gran Abs Auto 0.03 X10*3/uL (0.00-0.03); Imm Gran Pct Auto 0.4 % (0.0-0.4); Lymphocytes Absolute Auto 3.0 X10*3/uL (1.2-4.9); Mean Corpuscular HGB Conc 32.7 g/dl (31.0-35.0); Mean Corpuscular Hemoglobin 29.2 pg (27.0-33.0); Mean Corpuscular Volume 89.4 fL (80.0-98.0); NRBC Abs Auto 0.000 X10*3/uL (0.0-0.012); NRBC Pct Auto 0.0 /100WBC (0.0-0.2); Platelet Count 315 X10*3/uL (160-400); Red Blood Count 4.79 X10*6/uL (4.20-5.50); White Blood Count 8.2 X10*3/uL (4.8-10.8)
--- OUTSIDE RECORDS SUMMARY | 2025-05-30 13:24 | XMS_ITS | Clinical Summary ---
Author Organization [facility] Address [address] [place] [address] Phone Care Team Providers Care Brazing Machine Feeder Name Role Phone Gigi Barrow MD Primary Care Provider [phone] Allergies Active Allergy Reactions Criticality Noted Date [...] A DAY NEEDED FOR DIZZINESS 4 Active norethindrone (AYGESTIN) 5 mg tablet Take 1 tablet (5 mg total) by mouth daily. 5 Active Active Problems Problem Noted Date Diagnosed Date Pelvic pain 10/19/2020 Overview (08/13/2024): Last Assessment & Plan: No evidence of acute abdomen. I encouraged her to keep her follow up appts with urology and GI. We [place] [facility] [place] but [...] Encounters Date Type Department Care Team Description 05/05/2025 3:30 PM EDT Office Visit [facility] [address] [place], [place] [address] [address] Luly Brown DO Abnormal uterine bleeding (Primary Dx) 05/02/2025 [facility] [address] [place] [address] Irene IZAGU[place] [phone] Luly Brown DO 04/27/2025 Telephone [facility]s [facility] [address] [place] [address] Luly Brown DO 04/27/2025 Results Follow-Up Obst[facility]s [facility]cology [facility] [address] [place] [address] Fozia Sawant MA 04/25/2025 Telephone Ob[facility]s [facility]cology [facility] [address] [place] [address] Luly Brown DO 04/20/2025 9:00 AM EDT - 04/20/2025 10:30 AM EDT Surgery [facility] [place] [address] [place] [phone] Luly Brown DO HYSTEROSCOPY with D&C & MYOSURE [38883 (CPT )] 04/20/2025 8:42 AM EDT Anesthesia Event [facility] [place] [address] [place] [phone] Feliciano Padilla DO 04/20/2025 7:18 AM EDT - 04/20/2025 11:15 AM EDT Hospital Encounter [facility] [place] [address] [place] [phone] Luly Brown DO Postmenopausal bleeding Discharge Disposition: Home or Self Care 04/19/2025 Telephone Ob[facility]etrics [facility]cology - [facility] [address] [place] [address] Luly Brown DO from Last 3 Months Immunizations Immunization Administration [...] 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 Para Term AB IAB SAB Ectopic Multiple Livin g Live Births 3 2 2 2 2 Date Outcome GA Total Labor Labor/2nd/3rd Weight Sex Type Anes PTL Su A1 A5 Name Clin 1988 Term M Vag-S pont Living 1993 Term F Vag-S pont Living Last Filed Vital Signs Vital Sign Reading Time Taken Comments Blood Pressure 110/74 05/05/2025 3:19 PM EDT Pulse 64 05/05/2025 3:19 PM EDT Temperature 36.2 C (97.2 F) 04/20/2025 10:16 AM EDT Respiratory Rate 16 05/05/2025 3:19 PM EDT Oxygen Saturation 97% 04/20/2025 10:16 AM EDT Inhaled Oxygen Concentration - - Weight 71.2 kg (157 lb) 05/05/2025 3:19 PM EDT Height 165.1 cm (5' 5 ) 05/05/2025 3:19 PM EDT Body Mass Index 26.13 05/05/2025 3:19 PM EDT Plan of Treatment Health Maintenance Due Date Last Done Comments Hepatitis B Vaccines (1 of 3 - 19+ 3-dose series) 1989 Pneumococcal Vaccine: 50+ Years (1 of 1 - PCV) 12/09/2019 Colorectal Cancer Screening: Colonoscopy 04/26/2021 04/26/2011 Cholesterol Screening (Lipid Panel) 07/06/2022 02/26/2012 HIV Screening 07/06/2022 Social Influencers of Health Screening 07/06/2022 Depression Screening 07/28/2024 COVID-19 Vaccine (3 - 2024- season) 2025 12/13/2020, 11/15/2020 Influenza Vaccine (#1) [...] LMA(NO CHARGE) Routine 04/20/2025 8:54 AM EDT [place] HYSTEROSCOPY W/BIOPSY ENDOMETRIUM AND/OR POLYPECTOMY W/O AND/OR [...] and culture (04/26/2025 12:01 PM EDT) Specific Reese Urine 1.041(H) 1.003 - 1.030 LAB URINALYSIS - AUTOMATED METHOD [facility], Urine 5.0 5.0 - 8.0 pH LAB URINALYSIS - AUTOMATED METHOD 04/26/2025 1:18 PM [facility] Leukocytes, Urine Moderate(A) Negative LAB URINALYSIS - AUTOMATED METHOD 04/26/2025 1:18 PM [facility] Nitrite, Urine Negative Negative LAB URINALYSIS - AUTOMATED METHOD 04/26/2025 1:18 PM [facility] Protein, Urine 100(A) <=Trace mg/dL LAB URINALYSIS - AUTOMATED METHOD 04/26/2025 1:18 PM [facility] Glucose, Urine Negative Negative mg/dL LAB URINALYSIS - AUTOMATED METHOD 04/26/2025 1:18 PM [facility] Ketones, Urine Trace(A) Negative mg/dL LAB URINALYSIS - AUTOMATED METHOD 04/26/2025 1:18 PM [facility] Urobilinogen , Urine 1.0 0.2 - 1.0 mg/dL LAB URINALYSIS - AUTOMATED METHOD 04/26/2025 1:18 PM [facility] Bilirubin, Urine Negative Negative LAB URINALYSIS - AUTOMATED METHOD 04/26/2025 1:18 PM EDT [facility] Blood, Urine Large(A) Negative LAB URINALYSIS - AUTOMATED METHOD 04/26/2025 1:18 PM EDT [facility] RBC, Urine 3,018.9(H) 0 - 4 /HPF LAB URINALYSIS - AUTOMATED METHOD 04/26/2025 1:18 PM EDT [facility] WBC, Urine 20.0(H) 0 - 4 /HPF LAB URINALYSIS - AUTOMATED METHOD 04/26/2025 1:18 PM EDT [facility] Squamous Epithelial, Urine 14 0 - 60 /LPF LAB URINALYSIS - AUTOMATED METHOD 04/26/2025 1:18 PM EDT [facility] Bacteria, Urine Negative Negative /HPF LAB URINALYSIS - AUTOMATED METHOD 04/26/2025 1:18 PM [facility] Hyaline Casts, Urine 3.0 0 - 3 /LPF LAB URINALYSIS - AUTOMATED METHOD 04/26/2025 1:18 PM EDT [facility] Urine Urine specimen obtained by clean catch procedure / Unknown Non-blood Collection / Unknown 04/26/2025 12:01 PM EDT 04/26/2025 12:49 PM EDT Luly Brown DO LAB URINE ORDERABLES Final Re sult [facility] [address] [place] [address], * Horton urine culture tube (04/26/2025 12:01 PM EDT) Extra Tube Hold for add-ons. 04/26/2025 2:01 PM EDT [facility] Comment:Auto resulted. Urine Urine specimen obtained by clean catch procedure / Unknown Non-blood Collection / Unknown 04/26/2025 12:01 PM EDT 04/26/2025 12:51 PM EDT Luly Stephanie LAB URINE ORDERABLES Final Re sult Performing Organization Address City/[facility]/ZIP Co de Phone Number [facility] [address] [place] [address], [place] [phone] * Culture urine (04/26/2025 12:01 PM EDT) Culture, Urine <10,000 CFU/mL gram negative bacilli, insignificant count, no further workup 04/27/2025 10:00 AM EDT [facility] Urine Urine specimen obtained by clean catch procedure / Unknown Non-blood Collection / Unknown 04/26/2025 12:01 PM EDT 04/26/2025 1:18 PM EDT Luly Stephanie LAB MICROBIOLOGY - GENERAL OR DERABLES Final Result Performing Organization Address [facility]/ZIP Co de Phone Number [facility] [address] [place] [address], [place] [phone] * Tissue exam (04/20/2025 9:04 AM EDT) Final Diagnosis Endometrial polyp, MyoSure resection: Benign endometrial polyp Inactive endometrium 04/21/2025 9:55 AM EDT [facility] Gross Description A. Endometrium, Polyp: Labeled endometri endo- . Received in formalin, in a mesh bag, is a 2.0 x 0.8 x 0.2 cm aggregate of soft to rubbery, garcia-white to pink-red shredded portions of tissue which are wrapped in paper and submitted in toto in one cassette, multiple pieces, x 2. TS 04/21/2025 9:55 AM EDT [facility] Disclaimer Unless otherwise specified, all tissue is 10% NB formalin fixed and paraffin embedded. 04/21/2025 9:55 AM EDT [facility] Tissue Endometrial structure / Unknown 04/20/2025 9:04 AM EDT 04/20/2025 10:20 AM EDT Result [facility] Luly Brown DO LAB PATHOLOGY ORDERABLES Joy l Result [facility] [address] [place] [address], * TH AN LMA(NO CHARGE) (04/20/2025 8:54 AM EDT) Darcy Gomez CRNA - 04/20/2025 8:54 AM EDT Darcy [...] * Cervical Cancer Screening: HPV (10/21/2023) Pathologist [facility] Cervical Cancer Screening: HPV Negative,A bstracted Historical Provider HEALTH MAINTENANCE Final Result * Hepatitis C Screening (10/21/2023) [facility] Hepatitis C Screening Abstracted Historical Provider HEALTH MAINTENANCE Final Result * Lipid panel (02/26/2012) [facility] LDL/HDL Ratio 0 Comment:no interpetation,Abs tracted Triglycerides 0 mg/dL Comment:no interpetation,Abs tracted Cholesterol 0 mg/dL Comment:no interpetation,Abs tracted HDL 0 mg/dL Comment:no interpetation,Abs tracted LDL Cholesterol 0 mg/dL Comment:no interpetation,Abs tracted Blood Venous blood specimen / Unknown us Historical Provider LAB BLOOD ORDERABLES Joy l Result * Colonoscopy (04/26/2011) [facility] Colonoscopy no interpreta tion,Abstr acted Anatomical Region Laterality Modality Other us Historical Provider HEALTH MAINTENANCE Final Result from Last 3 Months or Most Recently Relevant to Health Maintenance Insurance [facility] STATS Group PLAN Advance Directives * Full Code - [...] currently active code status orders. Care Teams Brazing Machine Feeder Relationship Specialty Start Date End Date Gigi Barrow MD [address] [place] [address] [address] [facility] [place] [address] PCP - General Internal Medicine 02/20/16
--- OUTSIDE RECORDS SUMMARY | 2025-05-30 13:24 | XMS_ITS | Encounter Summary ---
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
[2025-06-01 07:43] LABS: Class Alternaria alternata 0; Class Aspergillus fumigatus 0; Class Bermuda Grass 0; Class Birch 0; Class Cat Dander 0; Class Cladosporium herbarum 0; Class Cockroach 0; Class Common Ragweed 0; Class Cottonwood 0; Class Derm. pterony 0; Class Dermatophagoides farinae 0; Class Dog Dander 0; Class Elm 0; Class Maple Box Elder 0; Class Mountain Cedar 0; Class Mouse Urine Protein 0; Class Mugwort 0; Class Oak 0; Class Penicillium crysogenum 0; Class Rough Pigweed 0; Class Sheep Sorrel 0; Class Sycamore 0; Class Timothy Grass 0; Class Walnut Tree 0; Class White Ash 0; Class White Mulberry 0; D002 - IgE D farinae <0.10 kU/L; E001 - IgE Cat Dander <0.10 kU/L; E005 - IgE Dog Dander <0.10 kU/L; G006 - IgE Timothy Grass <0.10 kU/L; I006-IgE Cockroach, German <0.10 kU/L; M002 - IgE Cladosporium herbar <0.10 kU/L; M003 - IgE Aspergillus fumigat <0.10 kU/L; M006 - IgE Alternaria alternat <0.10 kU/L; T001 IgE Maple/Box Elder <0.10 kU/L; T006 - IgE Cedar, Mountain <0.10 kU/L; T007 - IgE Oak, White <0.10 kU/L; T008 IgE Elm, American <0.10 kU/L; T010 - IgE Walnut <0.10 kU/L; T011 - IgE Maple Leaf Sycamore <0.10 kU/L; T014 - IgE Cottonwood <0.10 kU/L; T015 - IgE Ash, White <0.10 kU/L; T070 - IgE White Mulberry <0.10 kU/L; W001 - IgE Ragweed, Short <0.10 kU/L; W006 - IgE Mugwort <0.10 kU/L; W014 IgE Pigweed, Common <0.10 kU/L; W018 IgE Sheep Sorrel <0.10 kU/L
== END 2025-05-30 10:11 | disposition home or self-care (01) ==
LOC: HO.LAB 10:10
PROVIDERS: PCP Internal Medicine; Referring Provider Internal Medicine; Visit Provider Nurse Practitioner Family
DX: R06.02 Shortness of breath (principal); Z91.09 Other allergy status, other than to drugs and biological substances; Z87.891 Personal history of nicotine dependence
CPT/HCPCS: 36415; 82785; 85025; 86003; 99202

== ENCOUNTER 2025-05-30 10:10 | Outpatient (AMB) | payer OTHER, SELFPAY ==
[2025-05-30 10:12] VITALS: BP 104/62; PULSE 81; O2SAT 98; BMI 26.6
--- NOTE | 2025-05-30 10:12 | MHC.OFFVIS ---
Vital Signs 05/30/25 10:12 Height 5 ft 5 in Weight 159 lb 13.362 oz BMI 26.6 BP 104/62 Blood Pressure Location Rt brachial Position Sitting Pulse 81 Pulse Source Pulse Oximeter Pulse Oximetry (%) 98 Oxygen Delivery Method Room Air Intake Visit Reasons: Shortness of breath Allergies latex (Latex) Allergy (Mild, Verified 05/30/25 10:15) SWELLING/ITCHING Sulfa (Sulfonamide Antibiotics) Allergy (Mild, Verified 05/30/25 10:15) SWELLING/ITCHING, pruritis sulfamethoxazole (From BACTRIM) Allergy (Unknown, Verified 05/30/25 10:15) ITCHY/HIVES trimethoprim (From BACTRIM) Allergy (Unknown, Verified 05/30/25 10:15) ITCHY/HIVES milk Allergy (Verified 05/30/25 10:15) Stomach Upset metoclopramide (From REGLAN) Adverse Reaction (Unknown, Verified 05/30/25 10:15) AGITATION HPI HPI Shortness of breath: Details: Christelle is a pleasant 54 year old female, former 20 pack year history, quit 16 years ago with underlying GERD, migraine, interstitial cystitis, generalized anxiety disorder, irritable bowel syndrome, impaired glucose tolerance, hypercholesterolemia, and erosive esophagitis. She was referred by PCP for pulmonary evaluation. She reports experiencing shortness of breath for many years, which she associates with a previous COVID-19 infection years ago. The dyspnea is accompanied by chest tightness, but she denies wheezing. The patient has a history of asthma, which was diagnosed during a COVID-19 infection. She has been prescribed albuterol inhalers, which she uses occasionally, especially during episodes of increased respiratory distress, however has not used recently. Prior PFT 2020 normal spirometry, slightly decreased DLCO. CXR 04/2025 unremarkable. The patient has a significant family history of asthma, with her mother, brother, and daughter all affected by the condition. She also reports severe seasonal allergies and has undergone allergy testing in the past, revealing allergies to milk, nuts, and various environmental allergens. The patient has a history of smoking, having smoked a pack a day for many years before quitting 16 years ago. She recalls being informed of a lung nodule and possible emphysema due to smoking, although recent chest x-rays have shown no significant abnormalities. She reports exposure to cleaning products in various settings, denies any other occupational exposures. PFSH Medical History (Updated 05/30/25 @ 10:39 by Sindhu Acharya NP) Cervicalgia SOB (shortness of breath) Annual physical exam Urinary incontinence Post-nasal drip Cough Vertigo Sprain of left medial ankle joint Hordeolum external Dizziness Migraine Tubular adenoma of colon Calcium oxalate crystals in urine Varicose veins of legs Heart palpitations Multiple pigmented nevi Mild carpal tunnel syndrome of right wrist Chronic idiopathic constipation Tachycardia Shoulder pain, bilateral Upper abdominal pain Pre-op examination Mass of left upper extremity Left arm swelling Laceration of left hand Lightheadedness Otitis media Otitis externa Bilateral hand numbness Upper respiratory infection Low back pain Breast cancer screening by mammogram Thyroid nodule Oropharyngeal dysphagia UTI (urinary tract infection) Right kidney stone COVID-19 Chest pain Delayed gastric emptying Daytime sleepiness Snoring Migraine Unspecified Eustachian tube disorder, left ear Acute pharyngitis Urgency of micturition Abdominal pain Dysuria Diarrhea Hematuria Acute conjunctivitis of left eye Wound of right leg Abdominal cramping Allergic conjunctivitis Nephrolithiasis Colitis Interstitial cystitis Chronic cough COVID-19 long hauler COVID-19 Elevated lipase Pain in both knees Vaginal itching Suprapubic pain Vaginal spotting Hematuria Frequency of micturition Myalgia Post-vaccination reaction Palpitations Bilateral lower extremity pain Hearing deficit Frequency of micturition Toe swelling Toe pain, right Vitamin B12 deficiency Scalp cyst Vitamin D deficiency GERD (gastroesophageal reflux disease) Multiple thyroid nodules Lateral meniscal tear Restrictive lung disease Benign hematuria Hemorrhoids Irritable bowel syndrome Cervical disc herniation Impaired glucose tolerance Hypercholesterolemia Erosive esophagitis Surgical History H/O cervical polypectomy Hx of colonoscopy H/O esophagogastroduodenoscopy S/P excision of lipoma Hx of tubal ligation History of lumpectomy of left breast Family History Father Skin cancer Mother Skin cancer High blood pressure Heart problem Maternal Grandfather Skin cancer Cancer FH: prostate cancer Brother Schizophrenia Other CVA (cerebral vascular accident) Mental health problem Social History Household Members: None Housing: Apartment Alcohol intake: never Patient Tobacco Use Status: Former Tobacco user Tobacco use type: Cigarette Years Smoked: quit 2007 e-Cigarette/Vaping Use: Never Used Second Hand Smoke Exposure: Yes service: No Current occupational status: employed 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 Current occupational exposures/hazards: No Cognitive needs: No Hearing needs: No Vision needs: No Review of Systems Const Denies chills, Denies excessive sweating, Denies fever(s), Denies headache(s) and Denies night sweats Eyes Denies dry eyes, Denies irritation and Denies itchy eyes ENT Reports Normal hearing present, Denies headache(s), Denies nasal congestion, Denies nasal discharge, Denies post nasal drip and Denies sore throat Card Denies chest pain, Denies chest pain at rest, Denies chest pain with activity, Denies claudication, Denies leg edema, Denies orthopnea and Denies paroxysmal nocturnal dyspnea Resp Denies chest congestion, Denies cough, Denies excessive phlegm production, Denies pain on inspiration, Denies pain with cough, Denies stridor and Denies wheezing Musc Denies myalgias Neuro Reports Normal hearing present and Denies headache(s) Endo Denies excessive sweating Oscar/Lymph Denies lymphadenopathy Aller/Immun Denies itchy eyes, Denies seasonal rhinorrhea and Denies wheezing Physical Exam Vital Signs: Last Vital Signs Pulse 81 05/30/25 10:12 BP 104/62 05/30/25 10:12 Pulse Ox 98 05/30/25 10:12 Oxygen Delivery Method Room Air 05/30/25 10:12 BMI result Body Mass Index 26.6 Const General: cooperative, healthy appearing, comfortable, no acute distress, well developed and alert Orientation/consciousness: patient oriented x3 Limitations: no limitations HEENT Head: Yes normal to inspection, Yes normocephalic and Yes atraumatic Ears: hearing grossly normal bilaterally and external ears normal Eyes General: appearance normal, both eyes and all related structures Eyelids: Yes eyelids normal Sclerae: sclerae normal EOM: EOMs intact bilaterally Neck Neck: Yes normal visual inspection and Yes no lymphadenopathy Lymphatic: no lymphadenopathy noted Chest Chest palpation & inspection: normal inspection of the chest Resp Effort & Inspection: normal respiratory effort, able to speak in complete sentences, no audible wheezes, no cough, no stridor, not tachypneic, no tripod positioning and no use of accessory muscles Auscultation: clear to auscultation bilaterally Cardio Jugular venous distension: no JVD Rate: regular rate Rhythm: regular rhythm Skin Other: warm, dry General skin exam: no rashes or lesions noted Neuro General: patient oriented x3 Cranial nerves: Yes Normal hearing present Cognition (Neuro): normal cognition Gait exam (Neuro): Normal gait present Extrem General: Yes normal to inspection, Yes capillary refill normal, Yes no clubbing, cyanosis or edema and Yes no pedal edema Psych Appearance: grossly normal and well kempt Speech and movement: Normal speech and movement present and Clear speech present Affect: normal affect Attitude: cooperative Thought process: Normal thought process present Thought content: Normal thought content present Insight: Good insight present (Psych) Judgement: Good judgement present (Psych) Assessment & Plan Assessment & Plan (1) SOB (shortness of breath): Code(s): R06.02 - Shortness of breath Category: Medical (2) Environmental allergies: Code(s): Z91.09 - Other allergy status, other than to drugs and biological substances Category: Medical Plan The patient will undergo an updated pulmonary function test to assess the current status of her respiratory function, given the history of dyspnea and previous COVID-19 infection. If abnormalities are detected, a CT scan of the chest may be considered to further evaluate the cause of her symptoms.The patient is advised to continue using her albuterol inhaler as needed for asthma symptoms. Allergy testing is recommended to identify specific allergens contributing to her symptoms. The patient is advised to avoid known allergens and consider environmental modifications to reduce exposure. All questions were answered and patient is in agreement of plan. Will follow up to review results or sooner if needed. Orders: Orders Complete Blood Count Auto Diff Today Z91.09 - Other allergy status, other than to drugs and biological substances Resp Allergy Profile Region I Today Z91.09 - Other allergy status, other than to drugs and biological substances Immunoglobulin E Today Z91.09 - Other allergy status, other than to drugs and biological substances PFT pulmonary function test Today R06.02 - Shortness of breath Coding Level of Care Code New Pt Level 4 (58806) Diagnoses SOB (shortness of breath) R06.02 Environmental allergies Z91.09
--- OUTSIDE RECORDS SUMMARY | 2025-05-30 12:08 | XMS_ITS | Patient Health Record ---
Author Organization [facility] Address [address] [place] [address] Care Team Providers Care Sound Installation Worker Name Role Phone Bill Miranda Unavailable [phone] Reason For Referral No Information Plan Of Treatment No Information
--- OUTSIDE RECORDS SUMMARY | 2025-05-30 12:08 | XMS_ITS | Clinical Summary ---
Author Organization [facility] Address [address] [address] Phone Care Team Providers Care Home Care Coordinator Name Role Phone Gigi Barrow MD Primary Care Provider [phone] Allergies Active Allergy Reactions Criticality Noted Date Comments Sulfamethoxazole-Trimethoprim Rash Low 2024 Latex 06/17/2021 Metoclopramide Hcl 06/17/2021 Sulfa (Sulfonamide Antibiotics) 05/29 Medications norethindrone (AYGESTIN) 5 mg tablet Take 1 tablet (5 mg total) by mouth daily. 30 tablet 04/30/2025 Active Encounters Date Type Department Care Team Description 04/30/2025 10:55 AM EDT - 04/30/2025 2:38 PM EDT Emergency [facility] [address] [place] [address] Paul Alanis MD Discharge Disposition: Home or [...] Comments TROPONIN STAT 04/30/2025 12:34 PM EDT BLOOD BANK HOLD SPECIMEN STAT 04/30/2025 11:24 AM EDT TROPONIN STAT 04/30/2025 11:24 AM EDT NT-PROBNP STAT 04/30/2025 11:24 AM EDT LIPASE STAT 04/30/2025 11:24 AM EDT LFTS (HEPATIC PANEL) STAT 04/30/2025 11:24 AM EDT BASIC METABOLIC PANEL (BMP) STAT 04/30/2025 11:24 AM EDT CBC AND DIFFERENTIAL STAT 04/30/2025 11:24 AM EDT XR CHEST PA AND LATERAL 2 VIEWS STAT 04/30/2025 11:23 AM EDT URINE SEDIMENT STAT 04/30/2025 10:59 AM EDT URINALYSIS WITH REFLEX TO URINE CULTURE STAT 04/30/2025 10:59 AM EDT ECG 12-LEAD STAT 04/30/2025 10:47 AM EDT from Last 3 Months Results * Troponin (04/30/2025 12:34 PM EDT) Only the most recent of2 resultswithin the time period is included. Troponin-T, HS Gen5 <6 0 - 9 ng/L [facility] Blood 04/30/2025 12:3 4 PM EDT 04/30/2025 12:51 PM EDT us Paul Alanis MD LAB BLOOD BKR ORDERABLES Final Result [facility] [address] [place] [address] * Hold Specimen In Blood Bank (04/30/2025 11:24 AM EDT) Expiration Date of Sample 05/03/2025 ,2359 [facility] Resulting Agency [facility] Blood 04/30/2025 11:2 4 AM EDT 04/30/2025 11:35 AM EDT us Paul Alanis MD LAB BLOOD BANK TEST ORDERABLES Final Result [address] [address] * LFTs (hepatic panel) (04/30/2025 11:24 AM EDT) ALKALINE PHOSPHATASE 86 39 - 117 U/L [facility] TOTAL BILIRUBIN 0.3 0.0 - 1.2 mg/dL [facility] DIRECT BILIRUBIN <0.1 0.0 - 0.2 mg/dL [facility] Bilirubin (Indirect) NOT CALCULATED 0 - 1.5 mg/dL [facility] AST 15 0 - 37 U/L [facility] ALT 16 0 - 40 U/L [facility] TOTAL PROTEIN 7.3 6.5 - 8.0 g/dL [facility] ALBUMIN 4.3 3.9 - 4.8 g/dL [facility] GLOBULIN 3.0 1 - 4.8 g/dL [facility] A/G Ratio 1.43 1.00 - 4.80 RATIO [facility] Blood 04/30/2025 11:2 4 AM EDT 04/30/2025 11:34 AM EDT us Paul Alanis MD LAB BLOOD BKR ORDERABLES Final Result [address] [address] * CBC and differential (04/30/2025 11:24 AM EDT) WBC 7.92 4.00 - 11.00 K/uL [facility] RBC 4.66 4.00 - 5.20 M/uL [facility] HGB 13.6 12.0 - 16.0 g/dL [facility] HCT 40.7 36.0 - 46.0 % [facility] PLT 337 150 - 450 K/uL [facility] MCV 87.3 80.0 - 100.0 fL [facility] MCH 29.2 27.0 - 31.0 pg [facility] MCHC 33.4 32.0 - 36.0 g/dL [facility] RDW 12.7 11.5 - 14.5 % [facility] MPV 9.7 8.4 - 12.0 fL [facility] NRBC 0.00 0.00 /100 WBCs [facility] ABSOLUTE NRBC 0.00 0.00 K/uL [facility] DIFF METHOD Auto [facility] NEUTS 56.2 48.0 - 76.0 % [facility] LYMPHS 33.3 18.0 - 41.0 % [facility] MONOS 7.4 4.0 - 11.0 % [facility] EOS 2.1 0.0 - 5.0 % [facility] BASOS 0.5 0.0 - 1.5 % [facility] Granulocytes, immature (%) 0.5 0.0 - 0.9 % [facility] ABSOLUTE NEUTS 4.44 1.92 - 7.60 K/uL [facility] ABSOLUTE LYMPHS 2.64 0.72 - 4.10 K/uL [facility] ABSOLUTE MONOS 0.59 0.16 - 1.10 K/uL [facility] ABSOLUTE EOS 0.17 0.00 - 0.50 K/uL [facility] ABSOLUTE BASOS 0.04 0.00 - 0.15 K/uL [facility] Granulocytes, immature 0.04 0.00 - 0.09 K/uL [facility] Blood 04/30/2025 11:2 4 AM EDT 04/30/2025 11:34 AM EDT us Paul Alanis MD LAB BLOOD BKR ORDERABLES Final Result [facility] [address] [place] [address] * NT-proBNP (04/30/2025 11:24 AM EDT) NT-PROBNP <36 0 - 125 pg/mL [facility] Blood 04/30/2025 11:2 4 AM EDT 04/30/2025 11:34 AM EDT Paul Alanis MD LAB BLOOD BKR ORDERABLES Final Result Performing Organization Address City/[facility]/ZIP Co de Phone Number [address] [address] * (ABNORMAL) Lipase (04/30/2025 11:24 AM EDT) Pathologist [facility] LIPASE 66(H) 16 - 63 U/L [facility] Blood 04/30/2025 11:2 4 AM EDT 04/30/2025 11:34 AM EDT us Paul Alanis MD LAB BLOOD BKR ORDERABLES Final Result Performing Organization Address [facility] Co de Phone Number [address] [address] * (ABNORMAL) Basic metabolic panel (04/30/2025 11:24 AM EDT) Pathologist [facility] SODIUM 137 133 - 146 mmol/L [facility] CHLORIDE 103 96 - 108 mmol/L [facility] POTASSIUM 4.0 3.3 - 5.1 mmol/L [facility] CO2 23 21 - 35 mmol/L [facility] BUN 16 6 - 19 mg/dL [facility] CREATININE 0.50 0.5 - 1.5 mg/dL [facility] GLUCOSE 105(H) 70 - 99 mg/dL [facility] CALCIUM 9.3 8.4 - 10.3 mg/dL [facility] EGFR 111 >59 mL/min/1.7 3m2 [facility] Comment:Estimated glomerular filtration rate calculated using the CKD-EPI refit equation. ANION GAP 15 10 - 20 mmol/L [facility] Blood 04/30/2025 11:2 4 AM EDT 04/30/2025 11:34 AM EDT us Paul Alanis MD LAB BLOOD BKR ORDERABLES Final Result [facility] [address] [place] [address] * XR CHEST PA AND LATERAL 2 VIEWS (04/30/2025 11:23 AM EDT) Anatomical Region Laterality Modality Chest Computed Radiogr aphy 04/30/2025 12:1 5 PM EDT Impressions 04/30/2025 12:15 PM EDT No acute abnormality. Narrative 04/30/2025 12:15 PM EDT XR CHEST PA AND LATERAL 2 VIEWS Referring clinician's provided indication for this examination in [facility]: Dyspnea (Shortness of Breath) COMPARISON: None FINDINGS: Devices/Tubes/Lines: None. Lungs: No focal consolidation or pulmonary edema. Pleura: No pleural effusion or pneumothorax. Heart/Mediastinum: Normal heart and mediastinum. Bones/Soft Tissues: Mild thoracic spine degenerative changes. Procedure Note Anastacio Martin MD, PhD - 04/30/2025 XR CHEST PA AND LATERAL 2 VIEWS Referring clinician's provided indication for this examination in [facility]:Dyspnea (Shortness of Breath) COMPARISON: None FINDINGS: Devices/Tubes/Lines: None. Lungs: No focal consolidation or pulmonary edema. Pleura: No pleural effusion or pneumothorax. Heart/Mediastinum: Normal heart and mediastinum. Bones/Soft Tissues: Mild thoracic spine degenerative changes. IMPRESSION: No acute abnormality. us Paul Alanis MD IMG XR CHEST Final Result * (ABNORMAL) Urinalysis w/reflex Urine Culture (04/30/2025 10:59 AM EDT) COLOR Yellow Yellow [facility] CLARITY Clear [facility] GLUCOSE Negative Negative [facility] BILI Negative Negative [facility] KETONES Negative Negative [facility] SPECIFIC GRAVITY 1.010 1.005 - 1.030 [facility] BLOOD 3+(A) Negative [facility] PH 6.0 5.0 - 8.0 [facility] Protein-UA Negative Negative [facility] NITRITE Negative Negative [facility] Leukocyte esterase, ur Negative Negative [facility] Urine (Urine) 04/30/2025 10: 59 AM EDT 04/30/2025 11:08 AM EDT us Paul Alanis MD LAB URINE ORDERABLES Final Resu lt Performing Organization Address [facility] Co de Phone Number [address] [address] * (ABNORMAL) Urine sediment (04/30/2025 10:59 AM EDT) WBC 0-4(A) NONE SEEN /hpf [facility] RBC 50-100(A) NONE SEEN /hpf [facility] URINE EPITHELIAL 0-4(A) NONE SEEN [facility] MUCUS NONE SEEN NONE SEEN /hpf [facility] BACTERIA Trace(A) NONE SEEN /hpf [facility] 04/30/2025 10:5 9 AM EDT 04/30/2025 11:08 AM EDT us Paul Alanis MD LAB URINE ORDERABLES Final Resu lt Performing Organization Address [facility] Co de Phone Number [address] [address] * ECG 12-LEAD (04/30/2025 10:47 AM EDT) Ventricular Rate EKG/MIN 76 BPM [facility] Atrial Rate 76 BPM [facility] IN Interval 170 ms [facility] QRS Duration 90 ms [facility] QT Interval 400 ms [facility] QTC Interval 450 ms [facility] P [place] 59 degrees [facility] R Wave [place] 37 degrees [facility] T Wave [place] 60 degrees [facility] 04/30/2025 10:4 7 AM EDT 05/01/2025 9:20 AM EDT Narrative [facility] - 05/01/2025 9:20 AM EDT Normal sinus rhythm Low voltage QRS Borderline ECG No previous ECGs available Confirmed by Kvng DUONG ([id number]) on 05/01/2025 9:20:53 AM us Paul Alanis MD ECG ORDERABLES Final Result [facility] from Last 3 Months Insurance [facility] ACO [facility] ACO [facility] [place] [address] [place] [address] [place] [phone] [place] [address] ACO ACO ACO [facility] ACO Care Teams Home Care Coordinator Relationship Specialty Start Date End Date Gigi Barrow MD [address] [place] [id number] PCP - General Internal Medicine 06/17/21 Additional Source Comments The information contained in this document represents components of the legal health record. It is not the complete legal health record.[facility]
== END 2025-05-30 10:49 | disposition home or self-care (01) ==
LOC: HO.HPS 10:11
PROVIDERS: PCP Internal Medicine; Referring Provider Internal Medicine; Visit Provider Nurse Practitioner Family
DX: R06.02 Shortness of breath (principal); Z91.09 Other allergy status, other than to drugs and biological substances
CPT/HCPCS: 99204

== ENCOUNTER 2025-05-31 12:56 | Outpatient (AMB) | payer OTHER, SELFPAY ==
--- NOTE | 2025-05-31 13:00 | MHC.OFFVIS ---
Vital Signs 05/31/25 13:03 Height 5 ft 5 in Weight 156 lb 8.451 oz BMI 26.0 BP 99/51 L Blood Pressure Location Lt brachial Position Sitting Pulse 83 Intake Visit Reasons: GERD, recatl spasm Intake Note: Christelle presents in the office as a follow up for GERD and rectal spasm. CC: States that she is still having reflux and some spasms. States the spasms have gotten worse. Reservations Specialist Required: No Allergies latex (Latex) Allergy (Mild, Verified 05/31/25 13:03) SWELLING/ITCHING Sulfa (Sulfonamide Antibiotics) Allergy (Mild, Verified 05/31/25 13:03) SWELLING/ITCHING, pruritis sulfamethoxazole (From BACTRIM) Allergy (Unknown, Verified 05/31/25 13:03) ITCHY/HIVES trimethoprim (From BACTRIM) Allergy (Unknown, Verified 05/31/25 13:03) ITCHY/HIVES milk Allergy (Verified 05/31/25 13:03) Stomach Upset metoclopramide (From REGLAN) Adverse Reaction (Unknown, Verified 05/31/25 13:03) AGITATION HPI HPI GERD, recatl spasm: Details: Assessment & Plan (1) GERD (gastroesophageal reflux disease): Code(s): K21.9 - Gastro-esophageal reflux disease without esophagitis Category: Medical Qualifiers: Esophagitis presence: without esophagitis Qualified Code(s): K21.9 - Gastro-esophageal reflux disease without esophagitis (2) Erosive esophagitis: Comment: 02/2024 scope= well healed normal ; EGD and colon December 2018 , May 2019 5 years Code(s): K22.10 - Ulcer of esophagus without bleeding Category: Medical (3) Irritable bowel syndrome with constipation: Code(s): K58.1 - Irritable bowel syndrome with constipation Category: Medical Plan She continues to do well on her pantoprazole. Her bowels have been very stable since she started eating bread with flax seeds and a lot of fiber. She is also using olive and oregano infusion to calm her bowels. She is worried about her low BP, but admits she has not been drinking enough water. She does not avoid salt. She is c/o rectal spasm intermittently, trial of bentyl. She is also taking tumeric and anushka which could be c/t some bowel irritability. ROV 6 mos. Medications: New dicyclomine 20 mg PO QID PRN 120 tabs 1RF abdominal pain 30 days Refilled pantoprazole 40 mg PO DAILY 90 tabs 2RF K21.9 - Gastro-esophageal reflux disease without esophagitis TODAY'S VISIT [facility] Medical History Cervicalgia SOB (shortness of breath) Annual physical exam Urinary incontinence Post-nasal drip Cough Vertigo Sprain of left medial ankle joint Hordeolum external Dizziness Migraine Tubular adenoma of colon Calcium oxalate crystals in urine Varicose veins of legs Heart palpitations Multiple pigmented nevi Mild carpal tunnel syndrome of right wrist Chronic idiopathic constipation Tachycardia Shoulder pain, bilateral Upper abdominal pain Pre-op examination Mass of left upper extremity Left arm swelling Laceration of left hand Lightheadedness Otitis media Otitis externa Bilateral hand numbness Upper respiratory infection Low back pain Breast cancer screening by mammogram Thyroid nodule Oropharyngeal dysphagia UTI (urinary tract infection) Right kidney stone COVID-19 Chest pain Delayed gastric emptying Daytime sleepiness Snoring Migraine Unspecified Eustachian tube disorder, left ear Acute pharyngitis Urgency of micturition Abdominal pain Dysuria Diarrhea Hematuria Acute conjunctivitis of left eye Wound of right leg Abdominal cramping Allergic conjunctivitis Nephrolithiasis Colitis Interstitial cystitis Chronic cough COVID-19 long hauler COVID-19 Elevated lipase Pain in both knees Vaginal itching Suprapubic pain Vaginal spotting Hematuria Frequency of micturition Myalgia Post-vaccination reaction Palpitations Bilateral lower extremity pain Hearing deficit Frequency of micturition Toe swelling Toe pain, right Vitamin B12 deficiency Scalp cyst Vitamin D deficiency GERD (gastroesophageal reflux disease) Multiple thyroid nodules Lateral meniscal tear Restrictive lung disease Benign hematuria Hemorrhoids Irritable bowel syndrome Cervical disc herniation Impaired glucose tolerance Hypercholesterolemia Erosive esophagitis Surgical History (Updated 05/31/25 @ 14:06 by JOEL Gonzalez) History of hysteroscopy H/O cervical polypectomy Hx of colonoscopy H/O esophagogastroduodenoscopy S/P excision of lipoma Hx of tubal ligation History of lumpectomy of left breast Family History Father Skin cancer Mother Skin cancer High blood pressure Heart problem Maternal Grandfather Skin cancer Cancer FH: prostate cancer Brother Schizophrenia Other CVA (cerebral vascular accident) Mental health problem Social History Household Members: None Housing: Apartment Alcohol intake: never Patient Tobacco Use Status: Former Tobacco user Tobacco use type: Cigarette Years Smoked: quit 2007 e-Cigarette/Vaping Use: Never Used Second Hand Smoke Exposure: Yes service: No Current occupational status: employed 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 Current occupational exposures/hazards: No Cognitive needs: No Hearing needs: No Vision needs: No Review of Systems Const Denies fatigue, Denies fever(s), Denies night sweats, Denies poor appetite and Denies weight loss ENT Reports Normal hearing present, Denies dental pain, Denies dysphagia, Denies hearing loss, Denies mouth pain, Denies odynophagia, Denies throat swelling, Denies tongue swelling and Reports other (Dentition adequate) Card Reports no additional complaints Resp Reports no additional complaints GI Details: Denies abdominal pain, Denies melena, Denies bloating, Denies hematochezia, Denies constipation, Reports GI cramping, Denies dysphagia, Denies excessive flatus, Denies early satiety, Reports dyspepsia, Reports heartburn, Denies diarrhea, Reports loose stools, Denies nausea, Denies odynophagia, Denies vomiting and Denies hematemesis Reports abnormal vaginal bleeding Skin/Breast Denies pruritus, Denies lesions, Denies rash and Denies jaundice Neuro Reports Normal hearing present and Denies Abnormal speech present Psych Reports anxiety Endo Denies fatigue Aller/Immun Denies throat swelling and Denies tongue swelling Physical Exam Vital Signs: Last Vital Signs Pulse 83 05/31/25 13:03 BP 99/51 L 05/31/25 13:03 BMI result Body Mass Index 26.0 Const General: cooperative, no acute distress, well developed and well groomed Nutritional Appearance: average body habitus and well nourished Orientation/consciousness: oriented to person, oriented to place and oriented to time Limitations: No language barrier HEENT Head: Yes normocephalic and Yes atraumatic Eyes General: appearance normal, both eyes and all related structures Pupils: Equal, round and reactive pupils present Neck Neck: Yes normal visual inspection and Yes no lymphadenopathy Thyroid: Thyroid normal Resp Effort & Inspection: normal respiratory effort and able to speak in complete sentences Auscultation: clear to auscultation bilaterally Cardio Rate: regular rate Rhythm: regular rhythm Heart sounds: Normal, physiologic split S2 sound present Peripheral pulses: radial pulses present and posterior tibial pulses present GI Inspection: No distended and No Abdominal panniculus present Palpation (GI): Soft to palpation, nontender, no guarding, not rigid and No hepatosplenomegaly present Percussion: Yes normal to percussion Auscultation: normal bowel sounds Rectal Exam - Female: deferred Skin General skin exam: no rashes or lesions noted, turgor normal, skin not dry, no jaundice, No spider nevi and no striae Rashes: no rashes Nails: normal Neuro General: oriented to person, oriented to place and oriented to time Cranial nerves: Yes Equal, round and reactive pupils present and Yes Normal hearing present Speech: No Abnormal speech present Extrem General: Yes normal to inspection, No clubbing, No cyanosis and No edema Psych Appearance: grossly normal and well kempt Mental Status: mental status grossly normal Speech and movement: Normal speech and movement present Affect: normal affect Attitude: cooperative Thought process: Normal thought process present and not confabulating Thought content: Normal thought content present Insight: Limited insight present (Psych) Judgement: Limited judgement present (Psych) Assessment & Plan Assessment & Plan (1) Irritable bowel syndrome with constipation: Code(s): K58.1 - Irritable bowel syndrome with constipation Category: Medical (2) GERD (gastroesophageal reflux disease): Code(s): K21.9 - Gastro-esophageal reflux disease without esophagitis Category: Medical Qualifiers: Esophagitis presence: without esophagitis Qualified Code(s): K21.9 - Gastro-esophageal reflux disease without esophagitis (3) Erosive esophagitis: Comment: 02/2024 scope= well healed normal ; EGD and colon December 2018 , May 2019 5 years Code(s): K22.10 - Ulcer of esophagus without bleeding Category: Medical Plan Christelle has had a difficult course with her health recently. She had sustained uncontrolled vaginal bleeding which went on for quite a long time and was not responsive to hormonal therapy. She eventually was referred to [facility] Gynecology and had a hysteroscopy with polyp removal and a D&C. She is still bled for time afterwards but this eventually seem to stop the problem for her. Fortunately it was biopsied and there was no cancerous materials. She had quite a lot of abdominal pain and we need taken to account this problem along with the interruption of her diet and exercise and potentially some short course of pain medications she is again having quite a lot of bowel cramping. For short time she had to take something for constipation after her D&C but this has since resolved. She has also been having some increased heartburn with this sensation of reflux coming all the way up into her chest. This likely is a function of the severe bowel irritability. I suggest that she restart her dicyclomine to calm down her bowels as this was effective for her in the past. She continues to do fairly well on her pantoprazole but I will add famotidine in the evening for breakthrough GERD. Return office visit in 6 weeks Medications: New famotidine (Pepcid) 40 mg PO BEDTIME 30 tabs 6RF Refilled dicyclomine 20 mg PO QID PRN 120 tabs 1RF for abdominal pain pantoprazole 40 mg PO DAILY 90 tabs 2RF K21.9 - Gastro-esophageal reflux disease without esophagitis Coding Level of Care Code Est Pt Level 3 (21931) Diagnoses Irritable bowel syndrome with constipation K58.1 Gastroesophageal reflux disease without esophagitis K21.9 Esophagitis presence: without esophagitis Erosive esophagitis K22.10
[2025-05-31 13:03] VITALS: BP 99/51; PULSE 83; BMI 26.0
--- OUTSIDE RECORDS SUMMARY | 2025-05-31 15:31 | XMS_ITS | Patient Health Record ---
Author Organization [facility] Address [address] [place] [address] Care Team Providers Care Venipuncturist Name Role Phone Bill Miranda Unavailable [phone] Reason For Referral No Information Plan Of Treatment No Information
--- OUTSIDE RECORDS SUMMARY | 2025-05-31 15:31 | XMS_ITS | Clinical Summary ---
Author Organization [facility] Address [address] [place] [address] Phone Care Team Providers Care Director Mortgage Name Role Phone Gigi Barrow MD Primary Care Provider [phone] Allergies Active Allergy Reactions Criticality Noted Date [...] GI. We requested her US results from [facility], but they will [...] Office Visit [facility] [address] [place], [place] [address] [address] Luly Brown DO Abnormal uterine bleeding (Primary Dx) 05/02/2025 Telephone [facility] [address] [place] [address] [place] [phone] Luly Brown DO 04/27/2025 Telephone [facility]s [facility] [address] [place] [address] Luly Brown DO 04/27/2025 Results Follow-Up [facility] [address] [place] [address] Fozia Sawant MA 04/25/2025 Telephone Ob[facility]etrics [facility]cology - [facility] [address] [place] [address] Luly Brown DO 04/20/2025 9:00 AM EDT - 04/20/2025 10:30 AM EDT Surgery [facility] OR [address] [place] [phone] Luly Brown DO HYSTEROSCOPY with D&C & MYOSURE [98241 (CPT )] 04/20/2025 8:42 AM EDT Anesthesia Event [facility] [place] [address] [place] [phone] Feliciano Padilla DO 04/20/2025 7:18 AM EDT - 04/20/2025 11:15 AM EDT Hospital Encounter [facility] [place] [address] [place] [phone] uLly Brown DO Postmenopausal bleeding Discharge Disposition: Home or Self Care 04/19/2025 Telephone Obstetrics [facility]cology - [facility] [address] [place] [address] Luly Brown DO from Last 3 Months [...] 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 on file Not on file Not [...] LMA(NO CHARGE) Routine 04/20/2025 8:54 AM EDT AL HYSTEROSCOPY W/BIOPSY ENDOMETRIUM AND/OR POLYPECTOMY W/O AND/OR [...] and culture (04/26/2025 12:01 PM EDT) Specific [place] Urine 1.041(H) 1.003 - 1.030 LAB URINALYSIS - AUTOMATED METHOD [facility], U[facility] 5.0 5.0 - 8.0 pH LAB URINALYSIS - AUTOMATED METHOD 04/26/2025 1:18 PM [facility] Leukocytes, Urine Moderate(A) Negative LAB URINALYSIS - AUTOMATED METHOD 04/26/2025 1:18 PM [facility] Nitrite, Urine Negative Negative LAB URINALYSIS - AUTOMATED METHOD 04/26/2025 1:18 PM [facility] Protein, Urine 100(A) <=Trace mg/dL LAB URINALYSIS - AUTOMATED METHOD 04/26/2025 1:18 PM [facility] Glucose, Urine Negative Negative mg/dL LAB URINALYSIS - AUTOMATED METHOD 04/26/2025 1:18 PM [facility] Ketones, Urine Trace(A) Negative mg/dL LAB URINALYSIS - AUTOMATED METHOD 04/26/2025 1:18 PM [facility] Urobilinogen , Urine 1.0 0.2 - 1.0 mg/dL LAB URINALYSIS - AUTOMATED METHOD 04/26/2025 1:18 PM [facility] Bilirubin, Urine Negative Negative LAB [...] URINALYSIS - AUTOMATED METHOD 04/26/2025 1:18 PM [facility] Hyaline Casts, Urine 3.0 0 - 3 /LPF LAB URINALYSIS - AUTOMATED METHOD 04/26/2025 1:18 PM EDT [facility] Urine Urine specimen obtained by clean catch procedure / Unknown Non-blood Collection / Unknown 04/26/2025 12:01 PM EDT 04/26/2025 12:49 PM EDT Luly Brown DO LAB URINE ORDERABLES Final Re sult [facility] [address] [place] [address], * Horton urine culture tube (04/26/2025 12:01 PM EDT) Extra Tube Hold for add-ons. 04/26/2025 2:01 PM EDT [facility] Comment:Auto resulted. Urine Urine specimen obtained by clean catch procedure / Unknown Non-blood Collection / Unknown 04/26/2025 12:01 PM EDT 04/26/2025 12:51 PM EDT Luly Stephanie LAB URINE ORDERABLES Final Re sult Performing Organization Address City/[facility]/ZIP Co de Phone Number [facility] [address] [place] [address], [place] [phone] * Culture urine (04/26/2025 12:01 PM EDT) [...] Result Performing Organization Address [facility]/ZIP Co de Phone Number [facility] [address] [place] [address], [place] [phone] * Tissue exam (04/20/2025 9:04 AM EDT) [...] AM EDT 04/20/2025 10:20 AM EDT Result [facility] Luly Brown DO LAB PATHOLOGY ORDERABLES Joy l Result [facility] [address] [place] [address], * TH AN LMA(NO CHARGE) (04/20/2025 8:54 [...] * Cervical Cancer Screening: HPV (10/21/2023) Pathologist [facility] Cervical Cancer Screening: HPV Negative,A bstracted Historical Provider HEALTH MAINTENANCE Final Result * Hepatitis C Screening (10/21/2023) [facility] Hepatitis C Screening Abstracted Historical Provider HEALTH MAINTENANCE Final Result * Lipid panel (02/26/2012) [facility] LDL/HDL Ratio 0 Comment:no interpetation,Abs tracted Triglycerides [...] Most Recently Relevant to Health Maintenance Insurance [facility] [employer] PLAN Advance Directives * Full Code - [...] currently active code status orders. Care Teams Director Mortgage Relationship Specialty Start Date End Date Gigi Barrow MD [address] [place] [address] [address] [facility] [place] [address] PCP - General Internal Medicine 02/20/16
--- OUTSIDE RECORDS SUMMARY | 2025-05-31 15:31 | XMS_ITS | Encounter Summary ---
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
--- OUTSIDE RECORDS SUMMARY | 2025-05-31 15:31 | XMS_ITS | Clinical Summary ---
Author Organization [facility] Address [address] [address] Phone Care Team Providers Care Configuration Analyst Name Role Phone Gigi Barrow MD Primary Care Provider [phone] Allergies Active Allergy Reactions Criticality Noted Date Comments Sulfamethoxazole-Trimethoprim Rash Low 2024 Latex 06/17/2021 Metoclopramide Hcl 06/17/2021 Sulfa (Sulfonamide Antibiotics) 05/29 Medications norethindrone (AYGESTIN) 5 mg tablet Take 1 tablet (5 mg total) by mouth daily. 30 tablet 04/30/2025 Active Encounters Date Type Department Care Team Description 04/30/2025 10:55 AM EDT - 04/30/2025 2:38 PM EDT Emergency [facility] [address] [place] [address] Paul Alanis MD Discharge Disposition: Home or [...] HS Gen5 <6 0 - 9 ng/L [facility] Blood 04/30/2025 12:3 4 PM EDT 04/30/2025 12:51 PM EDT us Paul Alanis MD LAB BLOOD BKR ORDERABLES Final Result [facility] [address] [place] [address] * Hold Specimen In Blood Bank (04/30/2025 11:24 AM EDT) Expiration Date of Sample 05/03/2025 ,2359 [facility] Resulting Agency [facility] Blood 04/30/2025 11:2 4 AM EDT 04/30/2025 11:35 AM EDT us Paul Alanis MD LAB BLOOD BANK TEST ORDERABLES Final Result [address] [address] * LFTs (hepatic panel) (04/30/2025 11:24 AM EDT) ALKALINE PHOSPHATASE 86 39 - 117 U/L [facility] TOTAL BILIRUBIN 0.3 0.0 - 1.2 mg/dL [facility] DIRECT BILIRUBIN <0.1 0.0 - 0.2 mg/dL [facility] Bilirubin (Indirect) NOT CALCULATED 0 - 1.5 mg/dL [facility] AST 15 0 - 37 U/L [facility] ALT 16 0 - 40 U/L [facility] TOTAL PROTEIN 7.3 6.5 - 8.0 g/dL [facility] ALBUMIN 4.3 3.9 - 4.8 g/dL [facility] GLOBULIN 3.0 1 - 4.8 g/dL [facility] A/G Ratio 1.43 1.00 - 4.80 RATIO [facility] Blood 04/30/2025 11:2 4 AM EDT 04/30/2025 11:34 AM EDT us Paul Alanis MD LAB BLOOD BKR ORDERABLES Final Result [address] [address] * CBC and differential (04/30/2025 11:24 AM EDT) WBC 7.92 4.00 - 11.00 K/uL [facility] RBC 4.66 4.00 - 5.20 M/uL [facility] HGB 13.6 12.0 - 16.0 g/dL [facility] HCT 40.7 36.0 - 46.0 % [facility] PLT 337 150 - 450 K/uL [facility] MCV 87.3 80.0 - 100.0 fL [facility] MCH 29.2 27.0 - 31.0 pg [facility] MCHC 33.4 32.0 - 36.0 g/dL [facility] RDW 12.7 11.5 - 14.5 % [facility] MPV 9.7 8.4 - 12.0 fL [facility] NRBC 0.00 0.00 /100 WBCs [facility] ABSOLUTE NRBC 0.00 0.00 K/uL [facility] DIFF METHOD Auto [facility] NEUTS 56.2 48.0 - 76.0 % [facility] LYMPHS 33.3 18.0 - 41.0 % [facility] MONOS 7.4 4.0 - 11.0 % [facility] EOS 2.1 0.0 - 5.0 % [facility] BASOS 0.5 0.0 - 1.5 % [facility] Granulocytes, immature (%) 0.5 0.0 - 0.9 % [facility] ABSOLUTE NEUTS 4.44 1.92 - 7.60 K/uL [facility] ABSOLUTE LYMPHS 2.64 0.72 - 4.10 K/uL [facility] ABSOLUTE MONOS 0.59 0.16 - 1.10 K/uL [facility] ABSOLUTE EOS 0.17 0.00 - 0.50 K/uL [facility] ABSOLUTE BASOS 0.04 0.00 - 0.15 K/uL [facility] Granulocytes, immature 0.04 0.00 - 0.09 K/uL [facility] Blood 04/30/2025 11:2 4 AM EDT 04/30/2025 11:34 AM EDT us Paul Alanis MD LAB BLOOD BKR ORDERABLES Final Result [facility] [address] [place] [address] * NT-proBNP (04/30/2025 11:24 AM EDT) NT-PROBNP <36 0 - 125 pg/mL [facility] Blood 04/30/2025 11:2 4 AM EDT 04/30/2025 11:34 AM EDT Paul Alanis MD LAB BLOOD BKR ORDERABLES Final Result Performing Organization Address City/[facility]/ZIP Co de Phone Number [address] [address] * (ABNORMAL) Lipase (04/30/2025 11:24 AM EDT) Pathologist [facility] LIPASE 66(H) 16 - 63 U/L [facility] Blood 04/30/2025 11:2 4 AM EDT 04/30/2025 11:34 AM EDT us Paul Alanis MD LAB BLOOD BKR ORDERABLES Final Result Performing Organization Address [facility] Co de Phone Number [address] [address] * (ABNORMAL) Basic metabolic panel (04/30/2025 11:24 AM EDT) Pathologist [facility] SODIUM 137 133 - 146 mmol/L [facility] CHLORIDE 103 96 - 108 mmol/L [facility] POTASSIUM 4.0 3.3 - 5.1 mmol/L [facility] CO2 23 21 - 35 mmol/L [facility] BUN 16 6 - 19 mg/dL [facility] CREATININE 0.50 0.5 - 1.5 mg/dL [facility] GLUCOSE 105(H) 70 - 99 mg/dL [facility] CALCIUM 9.3 8.4 - 10.3 mg/dL [facility] EGFR 111 >59 mL/min/1.7 3m2 [facility] Comment:Estimated glomerular filtration rate calculated using the CKD-EPI refit equation. ANION GAP 15 10 - 20 mmol/L [facility] Blood 04/30/2025 11:2 4 AM EDT 04/30/2025 11:34 AM EDT us Paul Alanis MD LAB BLOOD BKR ORDERABLES Final Result [facility] [address] [place] [address] * XR CHEST PA AND LATERAL 2 VIEWS (04/30/2025 11:23 AM EDT) Anatomical Region Laterality Modality Chest Computed Radiogr aphy 04/30/2025 12:1 5 PM EDT Impressions 04/30/2025 12:15 PM EDT No acute abnormality. Narrative 04/30/2025 12:15 PM EDT XR CHEST PA AND LATERAL 2 VIEWS Referring clinician's provided indication for this examination in [facility]: Dyspnea (Shortness of Breath) COMPARISON: None FINDINGS: Devices/Tubes/Lines: None. Lungs: No focal consolidation or pulmonary edema. Pleura: No pleural effusion or pneumothorax. Heart/Mediastinum: Normal heart and mediastinum. Bones/Soft Tissues: Mild thoracic spine degenerative changes. Procedure Note Anastacio Martin MD, PhD - 04/30/2025 XR CHEST PA AND LATERAL 2 VIEWS Referring clinician's provided indication for this examination in [facility]:Dyspnea (Shortness of Breath) COMPARISON: None FINDINGS: Devices/Tubes/Lines: None. Lungs: No focal consolidation or pulmonary edema. Pleura: No pleural effusion or pneumothorax. Heart/Mediastinum: Normal heart and mediastinum. Bones/Soft Tissues: Mild thoracic spine degenerative changes. IMPRESSION: No acute abnormality. us Paul Alanis MD IMG XR CHEST Final Result * (ABNORMAL) Urinalysis w/reflex Urine Culture (04/30/2025 10:59 AM EDT) COLOR Yellow Yellow [facility] CLARITY Clear [facility] GLUCOSE Negative Negative [facility] BILI Negative Negative [facility] KETONES Negative Negative [facility] SPECIFIC GRAVITY 1.010 1.005 - 1.030 [facility] BLOOD 3+(A) Negative [facility] PH 6.0 5.0 - 8.0 [facility] Protein-UA Negative Negative [facility] NITRITE Negative Negative [facility] Leukocyte esterase, ur Negative Negative [facility] Urine (Urine) 04/30/2025 10: 59 AM EDT 04/30/2025 11:08 AM EDT us Paul Alanis MD LAB URINE ORDERABLES Final Resu lt Performing Organization Address [facility] Co de Phone Number [address] [address] * (ABNORMAL) Urine sediment (04/30/2025 10:59 AM EDT) WBC 0-4(A) NONE SEEN /hpf [facility] RBC 50-100(A) NONE SEEN /hpf [facility] URINE EPITHELIAL 0-4(A) NONE SEEN [facility] MUCUS NONE SEEN NONE SEEN /hpf [facility] BACTERIA Trace(A) NONE SEEN /hpf [facility] 04/30/2025 10:5 9 AM EDT 04/30/2025 11:08 AM EDT us Paul Alanis MD LAB URINE ORDERABLES Final Resu lt Performing Organization Address [facility] Co de Phone Number [address] [address] * ECG 12-LEAD (04/30/2025 10:47 AM EDT) Ventricular Rate EKG/MIN 76 BPM [facility] Atrial Rate 76 BPM [facility] TX Interval 170 ms [facility] QRS Duration 90 ms [facility] QT Interval 400 ms [facility] QTC Interval 450 ms [facility] P Jackson 59 degrees [facility] R Wave Jackson 37 degrees [facility] T Wave [place] 60 degrees [facility] 04/30/2025 10:4 7 AM EDT 05/01/2025 9:20 AM EDT Narrative [facility] - 05/01/2025 9:20 AM EDT Normal sinus rhythm Low voltage QRS Borderline ECG No previous ECGs available Confirmed by Kvng DUONG ([id number]) on 05/01/2025 9:20:53 AM us Paul Alanis MD ECG ORDERABLES Final Result [facility] from Last [address] [facility] [place] [address] [place] [address] [place] [id number] [place] [address] ACO A[employer] [facility] [facility] ACO Care Teams Configuration Analyst Relationship Specialty Start Date End Date Gigi Barrow MD [address] [place] [id number] PCP - General Internal Medicine 06/17/21 Additional Source Comments The information contained in this document represents components of the legal health record. It is not the complete legal health record.[facility]
== END 2025-05-31 14:07 | disposition home or self-care (01) ==
PROVIDERS: PCP Internal Medicine; Visit Provider Nurse Practitioner
DX: K58.1 Irritable bowel syndrome with constipation (principal); K21.9 Gastro-esophageal reflux disease without esophagitis; K22.10 Ulcer of esophagus without bleeding
CPT/HCPCS: 99213

== ENCOUNTER → 2025-05-31 12:56 | Outpatient (BNVA) | payer OTHER, SELFPAY | PROVIDERS: PCP Internal Medicine; Visit Provider Nurse Practitioner | DX: K58.1 Irritable bowel syndrome with constipation (principal); K21.9 Gastro-esophageal reflux disease without esophagitis; K22.10 Ulcer of esophagus without bleeding | CPT/HCPCS: 99212 ==

== ENCOUNTER → 2025-06-06 20:30 | Outpatient (REF) | payer OTHER, SELFPAY ==
--- OUTSIDE RECORDS SUMMARY | 2025-06-06 20:48 | XMS_ITS | Encounter Summary ---
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
--- OUTSIDE RECORDS SUMMARY | 2025-06-06 20:48 | XMS_ITS | Clinical Summary ---
Author Organization [facility] Address [address] [place] [address] Phone Care Team Providers Care Sharepoint Admin Name Role Phone Gigi Barrow MD Primary Care Provider [phone] Allergies Active Allergy Reactions Criticality Noted Date [...] GI. We [place] her [place] [facility] but they will not fax for 48 [...] Office Visit [facility]st[facility]s [facility] [address] [place], [place] [address] [address] Luly Brown DO Abnormal uterine bleeding (Primary Dx) 05/02/2025 [facility] [address] [place] [address] Irene IZAGUIRRE [place] [phone] Luly Brown DO 04/27/2025 Telephone Obstetrics [facility] Gynecology - [facility] [address] [place] [address] Luly Brown DO 04/27/2025 Results Follow-Up Obstetrics and Gynecology - [facility] [address] [place] [address] Fozia Sawant MA 04/25/2025 Telephone Obstetrics [facility] Gynecology - [facility] [address] [place] [address] Luly Brown DO 04/20/2025 9:00 AM EDT - 04/20/2025 10:30 AM EDT Surgery [facility] [place] [address] [place] [phone] Luly Brown DO HYSTEROSCOPY with D&C & MYOSURE [09469 (CPT )] 04/20/2025 8:42 AM EDT Anesthesia Event [facility] [place] [address] [place] [phone] Feliciano Padilla DO 04/20/2025 7:18 AM EDT - 04/20/2025 11:15 AM EDT Hospital Encounter [facility] [place] [address] [place] [phone] Luly Brown DO Postmenopausal bleeding Discharge Disposition: Home or Self Care 04/19/2025 Telephone Obstetrics and Gynecology - [facility] [address] [place] [address] Luly Brown DO from Last 3 Months [...] 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 Not on file [...] LMA(NO CHARGE) Routine 04/20/2025 8:54 AM EDT [place] HYSTEROSCOPY W/BIOPSY ENDOMETRIUM AND/OR POLYPECTOMY W/O AND/OR [...] and culture (04/26/2025 12:01 PM EDT) Specific [place] Urine 1.041(H) 1.003 - 1.030 LAB URINALYSIS - AUTOMATED METHOD [facility] pH[facility] Urine 5.0 5.0 - 8.0 pH LAB URINALYSIS - AUTOMATED METHOD 04/26/2025 1:18 PM [facility] Leukocytes, Urine Moderate(A) Negative LAB URINALYSIS - AUTOMATED METHOD 04/26/2025 1:18 PM [facility] Nitrite, Urine Negative Negative LAB URINALYSIS - AUTOMATED METHOD 04/26/2025 1:18 PM [facility] Protein, Urine 100(A) <=Trace mg/dL LAB URINALYSIS - AUTOMATED METHOD 04/26/2025 1:18 PM [facility] Glucose, Urine Negative Negative mg/dL LAB URINALYSIS - AUTOMATED METHOD 04/26/2025 1:18 PM [facility] Ketones, Urine Trace(A) Negative mg/dL LAB URINALYSIS - AUTOMATED METHOD 04/26/2025 1:18 PM [facility] Urobilinogen , Urine 1.0 0.2 - 1.0 mg/dL LAB URINALYSIS - AUTOMATED METHOD 04/26/2025 1:18 PM [facility] Bilirubin, Urine Negative Negative LAB URINALYSIS - AUTOMATED METHOD 04/26/2025 1:18 PM EDT [facility] Blood, Urine Large(A) Negative LAB URINALYSIS - AUTOMATED METHOD 04/26/2025 1:18 PM EDT [facility] RBC, Urine 3,018.9(H) 0 - 4 /HPF LAB URINALYSIS - AUTOMATED METHOD 04/26/2025 1:18 PM EDT [facility] WBC, Urine 20.0(H) 0 - 4 /HPF LAB URINALYSIS - AUTOMATED METHOD 04/26/2025 1:18 PM EDT [facility] Squamous Epithelial, Urine 14 0 - 60 /LPF LAB URINALYSIS - AUTOMATED METHOD 04/26/2025 1:18 PM EDT [facility] Bacteria, Urine Negative Negative /HPF LAB URINALYSIS - AUTOMATED METHOD 04/26/2025 1:18 PM EDT [facility] Hyaline Casts, Urine 3.0 0 - 3 /LPF LAB URINALYSIS - AUTOMATED METHOD 04/26/2025 1:18 PM EDT [facility] Urine Urine specimen obtained by clean catch procedure / Unknown Non-blood Collection / Unknown 04/26/2025 12:01 PM EDT 04/26/2025 12:49 PM EDT Luly Brown DO LAB URINE ORDERABLES Final Re sult [facility] [address] [place] [address], * Horton urine culture tube (04/26/2025 12:01 PM EDT) Extra Tube Hold for add-ons. 04/26/2025 2:01 PM EDT [facility] Comment:Auto resulted. Urine Urine specimen obtained by clean catch procedure / Unknown Non-blood Collection / Unknown 04/26/2025 12:01 PM EDT 04/26/2025 12:51 PM EDT Luly Stephanie LAB URINE ORDERABLES Final Re sult Performing Organization Address City/[facility]/ZIP Co de Phone Number [facility] [address] [place] [address], [place] [phone] * Culture urine (04/26/2025 12:01 PM EDT) Culture, Urine <10,000 CFU/mL gram negative bacilli, insignificant count, no further workup 04/27/2025 10:00 AM EDT [facility] Urine Urine specimen obtained by clean catch procedure / Unknown Non-blood Collection / Unknown 04/26/2025 12:01 PM EDT 04/26/2025 1:18 PM EDT Luly Stephanie LAB MICROBIOLOGY - GENERAL OR DERABLES Final Result Performing Organization Address [facility]/ZIP Co de Phone Number [facility] [address] [place] [address], [place] [phone] * Tissue exam (04/20/2025 9:04 AM EDT) Final Diagnosis Endometrial polyp, MyoSure resection: Benign endometrial polyp Inactive endometrium 04/21/2025 9:55 AM EDT [facility] Gross Description A. Endometrium, Polyp: Labeled endometri endo- . Received in formalin, in a mesh bag, is a 2.0 x 0.8 x 0.2 cm aggregate of soft to rubbery, garcia-white to pink-red shredded portions of tissue which are wrapped in paper and submitted in toto in one cassette, multiple pieces, x 2. TS 04/21/2025 9:55 AM EDT [facility] Disclaimer Unless otherwise specified, all tissue is 10% NB formalin fixed and paraffin embedded. 04/21/2025 9:55 AM EDT [facility] Tissue Endometrial structure / Unknown 04/20/2025 9:04 AM EDT 04/20/2025 10:20 AM EDT Result [facility] Luly Brown DO LAB PATHOLOGY ORDERABLES Joy l Result [facility] [address] [place] [address], * TH AN LMA(NO CHARGE) (04/20/2025 8:54 [...] Cancer Screening: HPV (10/21/2023) Pathologist [facility] Cervical Cancer Screening: HPV Negative,A bstracted Historical Provider HEALTH MAINTENANCE Final Result * Hepatitis C Screening (10/21/2023) [facility] Hepatitis C Screening Abstracted Historical Provider HEALTH MAINTENANCE Final Result * Lipid panel (02/26/2012) [facility] LDL/HDL Ratio 0 Comment:no interpetation,Abs tracted Triglycerides [...] Most Recently Relevant to Health Maintenance Insurance [facility] Dress Code PLAN Advance Directives * Full Code - [...] currently active code status orders. Care Teams Sharepoint Admin Relationship Specialty Start Date End Date Gigi Barrow MD [address] [place] [address] [address] [facility] [place] [address] PCP - General Internal Medicine 02/20/16
--- OUTSIDE RECORDS SUMMARY | 2025-06-06 20:48 | XMS_ITS | Clinical Summary ---
Author Organization [facility] Address [address] [address] Phone Care Team Providers Care Commercial Producer Name Role Phone Gigi Barrow MD Primary Care Provider [phone] Allergies Active Allergy Reactions Criticality Noted Date Comments Sulfamethoxazole-Trimethoprim Rash Low 2024 Latex 06/17/2021 Metoclopramide Hcl 06/17/2021 Sulfa (Sulfonamide Antibiotics) 05/29 Medications norethindrone (AYGESTIN) 5 mg tablet Take 1 tablet (5 mg total) by mouth daily. 30 tablet 04/30/2025 Active Encounters Date Type Department Care Team Description 04/30/2025 10:55 AM EDT - 04/30/2025 2:38 PM EDT Emergency [facility] [address] [place] [address] Paul Alanis MD Discharge Disposition: Home or [...] 04/24/2020, 05/06/2019, Additional history exists COVID-19 VACCINE ( - season) 2025 12/13/2020, 11/15/2020 Adult Td,Tdap [...] patient's age to complete this topic IPV VACCINES Aged Out No longer eligi ble [...] HS Gen5 <6 0 - 9 ng/L [facility] Blood 04/30/2025 12:3 4 PM EDT 04/30/2025 12:51 PM EDT us Paul Alanis MD LAB BLOOD BKR ORDERABLES Final Result [address] [address] * Hold Specimen In Blood Bank (04/30/2025 11:24 AM EDT) Expiration Date of Sample 05/03/2025 ,2359 [facility] Resulting Agency [facility] Blood 04/30/2025 11:2 4 AM EDT 04/30/2025 11:35 AM EDT us Paul Alanis MD LAB BLOOD BANK TEST ORDERABLES Final Result [address] [address] * LFTs (hepatic panel) (04/30/2025 11:24 AM EDT) ALKALINE PHOSPHATASE 86 39 - 117 U/L [facility] TOTAL BILIRUBIN 0.3 0.0 - 1.2 mg/dL [facility] DIRECT BILIRUBIN <0.1 0.0 - 0.2 mg/dL [facility] Bilirubin (Indirect) NOT CALCULATED 0 - 1.5 mg/dL [facility] AST 15 0 - 37 U/L [facility] ALT 16 0 - 40 U/L [facility] TOTAL PROTEIN 7.3 6.5 - 8.0 g/dL [facility] ALBUMIN 4.3 3.9 - 4.8 g/dL [facility] GLOBULIN 3.0 1 - 4.8 g/dL [facility] A/G Ratio 1.43 1.00 - 4.80 RATIO [facility] Blood 04/30/2025 11:2 4 AM EDT 04/30/2025 11:34 AM EDT us Paul Alanis MD LAB BLOOD BKR ORDERABLES Final Result [address] [address] * CBC and differential (04/30/2025 11:24 AM EDT) WBC 7.92 4.00 - 11.00 K/uL [facility] RBC 4.66 4.00 - 5.20 M/uL [facility] HGB 13.6 12.0 - 16.0 g/dL [facility] HCT 40.7 36.0 - 46.0 % [facility] PLT 337 150 - 450 K/uL [facility] MCV 87.3 80.0 - 100.0 fL [facility] MCH 29.2 27.0 - 31.0 pg [facility] MCHC 33.4 32.0 - 36.0 g/dL [facility] RDW 12.7 11.5 - 14.5 % [facility] MPV 9.7 8.4 - 12.0 fL [facility] NRBC 0.00 0.00 /100 WBCs [facility] ABSOLUTE NRBC 0.00 0.00 K/uL [facility] DIFF METHOD Auto [facility] NEUTS 56.2 48.0 - 76.0 % [facility] LYMPHS 33.3 18.0 - 41.0 % [facility] MONOS 7.4 4.0 - 11.0 % [facility] EOS 2.1 0.0 - 5.0 % [facility] BASOS 0.5 0.0 - 1.5 % [facility] Granulocytes, immature (%) 0.5 0.0 - 0.9 % [facility] ABSOLUTE NEUTS 4.44 1.92 - 7.60 K/uL [facility] ABSOLUTE LYMPHS 2.64 0.72 - 4.10 K/uL [facility] ABSOLUTE MONOS 0.59 0.16 - 1.10 K/uL [facility] ABSOLUTE EOS 0.17 0.00 - 0.50 K/uL [facility] ABSOLUTE BASOS 0.04 0.00 - 0.15 K/uL [facility] Granulocytes, immature 0.04 0.00 - 0.09 K/uL [facility] Blood 04/30/2025 11:2 4 AM EDT 04/30/2025 11:34 AM EDT us Paul Alanis MD LAB BLOOD BKR ORDERABLES Final Result [facility] [address] [place] [address] * NT-proBNP (04/30/2025 11:24 AM EDT) NT-PROBNP <36 0 - 125 pg/mL [facility] Blood 04/30/2025 11:2 4 AM EDT 04/30/2025 11:34 AM EDT us Paul Alanis MD LAB BLOOD BKR ORDERABLES Final Result [address] [address] * (ABNORMAL) Lipase (04/30/2025 11:24 AM EDT) Pathologist [facility] LIPASE 66(H) 16 - 63 U/L [facility] Blood 04/30/2025 11:2 4 AM EDT 04/30/2025 11:34 AM EDT us Paul Alanis MD LAB BLOOD BKR ORDERABLES Final Result Performing Organization Address City/[facility]/ZIP Co de Phone Number [address] [address] * (ABNORMAL) Basic metabolic panel (04/30/2025 11:24 AM EDT) SODIUM 137 133 - 146 mmol/L [facility] CHLORIDE 103 96 - 108 mmol/L [facility] POTASSIUM 4.0 3.3 - 5.1 mmol/L [facility] CO2 23 21 - 35 mmol/L [facility] BUN 16 6 - 19 mg/dL [facility] CREATININE 0.50 0.5 - 1.5 mg/dL [facility] GLUCOSE 105(H) 70 - 99 mg/dL [facility] CALCIUM 9.3 8.4 - 10.3 mg/dL [facility] EGFR 111 >59 mL/min/1.7 3m2 [facility] Comment:Estimated glomerular filtration rate calculated using the CKD-EPI refit equation. ANION GAP 15 10 - 20 mmol/L [facility] Blood 04/30/2025 11:2 4 AM EDT 04/30/2025 11:34 AM EDT us Paul Alanis MD LAB BLOOD BKR ORDERABLES Final Result [facility] [address] [place] [address] * XR CHEST PA AND LATERAL 2 VIEWS (04/30/2025 11:23 AM EDT) Anatomical Region Laterality Modality Chest Computed Radiogr aphy 04/30/2025 12:1 5 PM EDT Impressions 04/30/2025 12:15 PM EDT No acute abnormality. Narrative 04/30/2025 12:15 PM EDT XR CHEST PA AND LATERAL 2 VIEWS Referring clinician's provided indication for this examination in [facility]: Dyspnea (Shortness of Breath) COMPARISON: None FINDINGS: Devices/Tubes/Lines: None. Lungs: No focal consolidation or pulmonary edema. Pleura: No pleural effusion or pneumothorax. Heart/Mediastinum: Normal heart and mediastinum. Bones/Soft Tissues: Mild thoracic spine degenerative changes. Procedure Note Anastacio aMrtin MD, PhD - 04/30/2025 XR CHEST PA AND LATERAL 2 VIEWS Referring clinician's provided indication for this examination in [facility]:Dyspnea (Shortness of Breath) COMPARISON: None FINDINGS: Devices/Tubes/Lines: None. Lungs: No focal consolidation or pulmonary edema. Pleura: No pleural effusion or pneumothorax. Heart/Mediastinum: Normal heart and mediastinum. Bones/Soft Tissues: Mild thoracic spine degenerative changes. IMPRESSION: No acute abnormality. us Paul Alanis MD IMG XR CHEST Final Result * (ABNORMAL) Urinalysis w/reflex Urine Culture (04/30/2025 10:59 AM EDT) COLOR Yellow Yellow [facility] CLARITY Clear [facility] GLUCOSE Negative Negative [facility] BILI Negative Negative [facility] KETONES Negative Negative [facility] SPECIFIC GRAVITY 1.010 1.005 - 1.030 [facility] BLOOD 3+(A) Negative [facility] PH 6.0 5.0 - 8.0 [facility] Protein-UA Negative Negative [facility] NITRITE Negative Negative [facility] Leukocyte esterase, ur Negative Negative [facility] Urine (Urine) 04/30/2025 10: 59 AM EDT 04/30/2025 11:08 AM EDT us Paul Alanis MD LAB URINE ORDERABLES Final Resu lt Performing Organization Address [facility] Co de Phone Number [address] [address] * (ABNORMAL) Urine sediment (04/30/2025 10:59 AM EDT) WBC 0-4(A) NONE SEEN /hpf [facility] RBC 50-100(A) NONE SEEN /hpf [facility] URINE EPITHELIAL 0-4(A) NONE SEEN [facility] MUCUS NONE SEEN NONE SEEN /hpf [facility] BACTERIA Trace(A) NONE SEEN /hpf [facility] 04/30/2025 10:5 9 AM EDT 04/30/2025 11:08 AM EDT us Paul Alanis MD LAB URINE ORDERABLES Final Resu lt Performing Organization Address [facility] Co de Phone Number [address] [address] * ECG 12-LEAD (04/30/2025 10:47 AM EDT) Ventricular Rate EKG/MIN 76 BPM [facility] Atrial Rate 76 BPM [facility] NM Interval 170 ms [facility] QRS Duration 90 ms [facility] QT Interval 400 ms [facility] QTC Interval 450 ms [facility] P [place] 59 degrees [facility] R Wave [place] 37 degrees [facility] T Wave [place] 60 degrees [facility] 04/30/2025 10:4 7 AM EDT 05/01/2025 9:20 AM EDT Narrative [facility] - 05/01/2025 9:20 AM EDT Normal sinus rhythm Low voltage QRS Borderline ECG No previous ECGs available Confirmed by Kvng DUONG ([id number]) on 05/01/2025 9:20:53 AM us Paul Alanis MD ECG ORDERABLES Final Result [facility] from Last 3 Months Insurance [facility] ACO [facility] ACO [address] [place] [address] ACO ACO [facility] [place] [address] [address] ACO [facility] ACO Care Teams Commercial Producer Relationship Specialty Start Date End Date Gigi Barrow MD [address] [place] [address] PCP - General Internal Medicine 06/17/21 Additional Source Comments The information contained in this document represents components of the legal health record. It is not the complete legal health record.[facility]
== END ==
LOC: HO.SL 20:30
PROVIDERS: PCP Internal Medicine; Visit Provider Physician Assistant Medical
DX: G47.19 Other hypersomnia (principal)
CPT/HCPCS: 95810

== ENCOUNTER → 2025-06-06 20:39 | Outpatient (BNV) | payer OTHER, SELFPAY | PROVIDERS: PCP Internal Medicine; Visit Provider Psychiatry & Neurology Neurology | DX: R06.83 Snoring (principal) | CPT/HCPCS: 95810 ==

== ENCOUNTER 2025-06-10 08:15 | Outpatient (AMB) | payer OTHER, SELFPAY ==
--- OUTSIDE RECORDS SUMMARY | 2025-06-10 08:21 | XMS_ITS | Patient Health Record ---
Author Organization [facility] Address [address] [place] [address] Care Team Providers Care House Admin Name Role Phone Bill Miranda Unavailable [phone] Reason For Referral No Information Plan Of Treatment No Information
--- OUTSIDE RECORDS SUMMARY | 2025-06-10 08:21 | XMS_ITS | Encounter Summary ---
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
--- OUTSIDE RECORDS SUMMARY | 2025-06-10 08:21 | XMS_ITS | Clinical Summary ---
Author Organization [facility] Address [address] [place] [address] Phone Care Team Providers Care Knife Edger Name Role Phone Gigi Barrow MD Primary Care Provider [phone] Allergies Active Allergy Reactions Criticality Noted Date [...] GI. We requested her US results from [facility], but they will not fax for 48 [...] Office Visit Obst[facility]s [facility] [address] [place], [place] [address] [address] Luly Brown DO Abnormal uterine bleeding (Primary Dx) 05/02/2025 [facility] [address] [place] [address] Irene [place] [phone] Luly Brown DO 04/27/2025 Telephone Obstetrics and Gynecology - [facility] [address] [place] [address] Luly Brown DO 04/27/2025 Results Follow-Up Obstetrics and Gynecology - [facility] [address] [place] [address] Fozia Sawant MA 04/25/2025 Telephone Obstetrics and Gynecology - [facility] [address] [place] [address] Luly Brown DO 04/20/2025 9:00 AM EDT - 04/20/2025 10:30 AM EDT Surgery [facility] [place] [address] [place] [phone] Luly Brown DO HYSTEROSCOPY with D&C & MYOSURE [96020 (CPT )] 04/20/2025 8:42 AM EDT Anesthesia Event [facility] [place] [address] [place] [phone] Feliciano Padilla DO 04/20/2025 7:18 AM EDT - 04/20/2025 11:15 AM EDT Hospital Encounter [facility] [place] [address] [place] [phone] Luly Brown DO Postmenopausal bleeding Discharge Disposition: Home or Self Care 04/19/2025 Telephone Obstetrics and [facility]necology - [facility] [address] [place] [address] Luly Brown DO from Last 3 Months [...] 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 file Not on file Not [...] LMA(NO CHARGE) Routine 04/20/2025 8:54 AM EDT [place] HYSTEROSCOPY W/BIOPSY ENDOMETRIUM AND/OR POLYPECTOMY W/O AND/OR [...] and culture (04/26/2025 12:01 PM EDT) Specific [place] Urine 1.041(H) 1.003 - 1.030 LAB URINALYSIS - AUTOMATED METHOD 04/26/2025 1:[facility] pH, Urine 5.0 5.0 - 8.0 pH LAB URINALYSIS - AUTOMATED METHOD 04/26/2025 1:18 PM [facility] Leukocytes, Urine Moderate(A) Negative LAB URINALYSIS - AUTOMATED METHOD 04/26/2025 1:18 PM [facility] Nitrite, Urine Negative Negative LAB URINALYSIS - AUTOMATED METHOD 04/26/2025 1:18 PM [facility] Protein, Urine 100(A) <=Trace mg/dL LAB URINALYSIS - AUTOMATED METHOD 04/26/2025 1:18 PM [facility] Glucose, Urine Negative Negative mg/dL LAB URINALYSIS - AUTOMATED METHOD 04/26/2025 1:18 PM [facility] Ketones, Urine Trace(A) Negative mg/dL LAB URINALYSIS - AUTOMATED METHOD 04/26/2025 1:18 PM [facility] Urobilinogen , Urine 1.0 0.2 - 1.0 mg/dL LAB URINALYSIS - AUTOMATED METHOD 04/26/2025 1:18 PM [facility] Bilirubin, Urine Negative Negative LAB URINALYSIS - AUTOMATED METHOD 04/26/2025 1:18 PM EDT [facility] Blood, Urine Large(A) Negative LAB URINALYSIS - AUTOMATED METHOD 04/26/2025 1:18 PM EDT [facility] RBC, Urine 3,018.9(H) 0 - 4 /HPF LAB URINALYSIS - AUTOMATED METHOD 04/26/2025 1:18 PM EDT [facility] WBC, Urine 20.0(H) 0 - 4 /HPF LAB URINALYSIS - AUTOMATED METHOD 04/26/2025 1:18 PM EDT [facility] Squamous Epithelial, Urine 14 0 - 60 /LPF LAB URINALYSIS - AUTOMATED METHOD 04/26/2025 1:18 PM EDT [facility] Bacteria, Urine Negative Negative /HPF LAB URINALYSIS - AUTOMATED METHOD 04/26/2025 1:18 PM EDT [facility] Hyaline Casts, Urine 3.0 0 - 3 /LPF LAB URINALYSIS - AUTOMATED METHOD 04/26/2025 1:18 PM EDT [facility] Urine Urine specimen obtained by clean catch procedure / Unknown Non-blood Collection / Unknown 04/26/2025 12:01 PM EDT 04/26/2025 12:49 PM EDT Luly Brown DO LAB URINE ORDERABLES Final Re sult [facility] [address] [place] [address], * [place] urine culture tube (04/26/2025 12:01 PM EDT) Extra Tube Hold for add-ons. 04/26/2025 2:01 PM EDT [facility] Comment:Auto resulted. Urine Urine specimen obtained by clean catch procedure / Unknown Non-blood Collection / Unknown 04/26/2025 12:01 PM EDT 04/26/2025 12:51 PM EDT Luly Stephanie LAB URINE ORDERABLES Final Re sult Performing Organization Address City/[facility]/ZIP Co de Phone Number [facility] [address] [place] [address], [place] [phone] * Culture urine (04/26/2025 12:01 PM EDT) Culture, Urine <10,000 CFU/mL gram negative bacilli, insignificant count, no further workup 04/27/2025 10:00 AM EDT [facility] Urine Urine specimen obtained by clean catch procedure / Unknown Non-blood Collection / Unknown 04/26/2025 12:01 PM EDT 04/26/2025 1:18 PM EDT Luly Stephanie LAB MICROBIOLOGY - GENERAL OR DERABLES Final Result Performing Organization Address [facility]/ZIP Co de Phone Number [facility] [address] [place] [address], [place] [phone] * Tissue exam (04/20/2025 9:04 AM EDT) Final Diagnosis Endometrial polyp, MyoSure resection: Benign endometrial polyp Inactive endometrium 04/21/2025 9:55 AM EDT [facility] Gross Description A. Endometrium, Polyp: Labeled endometri endo- . Received in formalin, in a mesh bag, is a 2.0 x 0.8 x 0.2 cm aggregate of soft to rubbery, garcia-white to pink-red shredded portions of tissue which are wrapped in paper and submitted in toto in one cassette, multiple pieces, x 2. TS 04/21/2025 9:55 AM EDT [facility] Disclaimer Unless otherwise specified, all tissue is 10% NB formalin fixed and paraffin embedded. 04/21/2025 9:55 AM EDT [facility] Tissue Endometrial structure / Unknown 04/20/2025 9:04 AM EDT 04/20/2025 10:20 AM EDT Result [facility] Luly Brown DO LAB PATHOLOGY ORDERABLES Joy l Result [facility] [address] [place] [address], * TH AN LMA(NO CHARGE) (04/20/2025 8:54 [...] Cancer Screening: HPV (10/21/2023) Pathologist [facility] Cervical Cancer Screening: HPV Negative,A bstracted Historical Provider HEALTH MAINTENANCE Final Result * Hepatitis C Screening (10/21/2023) [facility] Hepatitis C Screening Abstracted Historical Provider HEALTH MAINTENANCE Final Result * Lipid panel (02/26/2012) [facility] LDL/HDL Ratio 0 Comment:no interpetation,Abs tracted Triglycerides [...] Maintenance Insurance [facility] [employer] PLAN Advance Directives * Full Code - [...] currently active code status orders. Care Teams Knife Edger Relationship Specialty Start Date End Date Gigi Barrow MD [address] [place] [address] [address] [facility] [place] [address] PCP - General Internal Medicine 02/20/16
--- OUTSIDE RECORDS SUMMARY | 2025-06-10 08:21 | XMS_ITS | Clinical Summary ---
Author Organization [facility] Address [address] [address] Phone Care Team Providers Care Retail Field Supervisor Name Role Phone Gigi Barrow MD Primary Care Provider [phone] Allergies Active Allergy Reactions Criticality Noted Date Comments Sulfamethoxazole-Trimethoprim Rash Low 2024 Latex 06/17/2021 Metoclopramide Hcl 06/17/2021 Sulfa (Sulfonamide Antibiotics) 05/29 Medications norethindrone (AYGESTIN) 5 mg tablet Take 1 tablet (5 mg total) by mouth daily. 30 tablet 04/30/2025 Active Encounters Date Type Department Care Team Description 04/30/2025 10:55 AM EDT - 04/30/2025 2:38 PM EDT Emergency [facility] [address] [place] [address] Paul Alanis MD Discharge Disposition: Home or [...] HS Gen5 <6 0 - 9 ng/L [facility] Blood 04/30/2025 12:3 4 PM EDT 04/30/2025 12:51 PM EDT us Paul Alanis MD LAB BLOOD BKR ORDERABLES Final Result [address] [address] * Hold Specimen In Blood Bank (04/30/2025 11:24 AM EDT) Expiration Date of Sample 05/03/2025 ,2359 [facility] Resulting Agency [facility] Blood 04/30/2025 11:2 4 AM EDT 04/30/2025 11:35 AM EDT us Paul Alanis MD LAB BLOOD BANK TEST ORDERABLES Final Result [address] [address] * LFTs (hepatic panel) (04/30/2025 11:24 AM EDT) ALKALINE PHOSPHATASE 86 39 - 117 U/L [facility] TOTAL BILIRUBIN 0.3 0.0 - 1.2 mg/dL [facility] DIRECT BILIRUBIN <0.1 0.0 - 0.2 mg/dL [facility] Bilirubin (Indirect) NOT CALCULATED 0 - 1.5 mg/dL [facility] AST 15 0 - 37 U/L [facility] ALT 16 0 - 40 U/L [facility] TOTAL PROTEIN 7.3 6.5 - 8.0 g/dL [facility] ALBUMIN 4.3 3.9 - 4.8 g/dL [facility] GLOBULIN 3.0 1 - 4.8 g/dL [facility] A/G Ratio 1.43 1.00 - 4.80 RATIO [facility] Blood 04/30/2025 11:2 4 AM EDT 04/30/2025 11:34 AM EDT us Paul Alanis MD LAB BLOOD BKR ORDERABLES Final Result [address] [address] * CBC and differential (04/30/2025 11:24 AM EDT) WBC 7.92 4.00 - 11.00 K/uL [facility] RBC 4.66 4.00 - 5.20 M/uL [facility] HGB 13.6 12.0 - 16.0 g/dL [facility] HCT 40.7 36.0 - 46.0 % [facility] PLT 337 150 - 450 K/uL [facility] MCV 87.3 80.0 - 100.0 fL [facility] MCH 29.2 27.0 - 31.0 pg [facility] MCHC 33.4 32.0 - 36.0 g/dL [facility] RDW 12.7 11.5 - 14.5 % [facility] MPV 9.7 8.4 - 12.0 fL [facility] NRBC 0.00 0.00 /100 WBCs [facility] ABSOLUTE NRBC 0.00 0.00 K/uL [facility] DIFF METHOD Auto [facility] NEUTS 56.2 48.0 - 76.0 % [facility] LYMPHS 33.3 18.0 - 41.0 % [facility] MONOS 7.4 4.0 - 11.0 % [facility] EOS 2.1 0.0 - 5.0 % [facility] BASOS 0.5 0.0 - 1.5 % [facility] Granulocytes, immature (%) 0.5 0.0 - 0.9 % [facility] ABSOLUTE NEUTS 4.44 1.92 - 7.60 K/uL [facility] ABSOLUTE LYMPHS 2.64 0.72 - 4.10 K/uL [facility] ABSOLUTE MONOS 0.59 0.16 - 1.10 K/uL [facility] ABSOLUTE EOS 0.17 0.00 - 0.50 K/uL [facility] ABSOLUTE BASOS 0.04 0.00 - 0.15 K/uL [facility] Granulocytes, immature 0.04 0.00 - 0.09 K/uL [facility] Blood 04/30/2025 11:2 4 AM EDT 04/30/2025 11:34 AM EDT us Paul Alanis MD LAB BLOOD BKR ORDERABLES Final Result [facility] [address] [place] [address] * NT-proBNP (04/30/2025 11:24 AM EDT) NT-PROBNP <36 0 - 125 pg/mL [facility] Blood 04/30/2025 11:2 4 AM EDT 04/30/2025 11:34 AM EDT us Paul Alanis MD LAB BLOOD BKR ORDERABLES Final Result [address] [address] * (ABNORMAL) Lipase (04/30/2025 11:24 AM EDT) Pathologist [facility] LIPASE 66(H) 16 - 63 U/L [facility] Blood 04/30/2025 11:2 4 AM EDT 04/30/2025 11:34 AM EDT us Paul Alanis MD LAB BLOOD BKR ORDERABLES Final Result Performing Organization Address City/[facility]/ZIP Co de Phone Number [address] [address] * (ABNORMAL) Basic metabolic panel (04/30/2025 11:24 AM EDT) SODIUM 137 133 - 146 mmol/L [facility] CHLORIDE 103 96 - 108 mmol/L [facility] POTASSIUM 4.0 3.3 - 5.1 mmol/L [facility] CO2 23 21 - 35 mmol/L [facility] BUN 16 6 - 19 mg/dL [facility] CREATININE 0.50 0.5 - 1.5 mg/dL [facility] GLUCOSE 105(H) 70 - 99 mg/dL [facility] CALCIUM 9.3 8.4 - 10.3 mg/dL [facility] EGFR 111 >59 mL/min/1.7 3m2 [facility] Comment:Estimated glomerular filtration rate calculated using the CKD-EPI refit equation. ANION GAP 15 10 - 20 mmol/L [facility] Blood 04/30/2025 11:2 4 AM EDT 04/30/2025 11:34 AM EDT us Paul Alanis MD LAB BLOOD BKR ORDERABLES Final Result [facility] [address] [place] [address] * XR CHEST PA AND LATERAL 2 VIEWS (04/30/2025 11:23 AM EDT) Anatomical Region Laterality Modality Chest Computed Radiogr aphy 04/30/2025 12:1 5 PM EDT Impressions 04/30/2025 12:15 PM EDT No acute abnormality. Narrative 04/30/2025 12:15 PM EDT XR CHEST PA AND LATERAL 2 VIEWS Referring clinician's provided indication for this examination in [facility]: Dyspnea (Shortness of Breath) COMPARISON: None FINDINGS: Devices/Tubes/Lines: None. Lungs: No focal consolidation or pulmonary edema. Pleura: No pleural effusion or pneumothorax. Heart/Mediastinum: Normal heart and mediastinum. Bones/Soft Tissues: Mild thoracic spine degenerative changes. Procedure Note Anastacio Martin MD, PhD - 04/30/2025 XR CHEST PA AND LATERAL 2 VIEWS Referring clinician's provided indication for this examination in [facility]:Dyspnea (Shortness of Breath) COMPARISON: None FINDINGS: Devices/Tubes/Lines: None. Lungs: No focal consolidation or pulmonary edema. Pleura: No pleural effusion or pneumothorax. Heart/Mediastinum: Normal heart and mediastinum. Bones/Soft Tissues: Mild thoracic spine degenerative changes. IMPRESSION: No acute abnormality. us Paul Alanis MD IMG XR CHEST Final Result * (ABNORMAL) Urinalysis w/reflex Urine Culture (04/30/2025 10:59 AM EDT) COLOR Yellow Yellow [facility] CLARITY Clear [facility] GLUCOSE Negative Negative [facility] BILI Negative Negative [facility] KETONES Negative Negative [facility] SPECIFIC GRAVITY 1.010 1.005 - 1.030 [facility] BLOOD 3+(A) Negative [facility] PH 6.0 5.0 - 8.0 [facility] Protein-UA Negative Negative [facility] NITRITE Negative Negative [facility] Leukocyte esterase, ur Negative Negative [facility] Urine (Urine) 04/30/2025 10: 59 AM EDT 04/30/2025 11:08 AM EDT us Paul Alanis MD LAB URINE ORDERABLES Final Resu lt Performing Organization Address [facility] Co de Phone Number [address] [address] * (ABNORMAL) Urine sediment (04/30/2025 10:59 AM EDT) WBC 0-4(A) NONE SEEN /hpf [facility] RBC 50-100(A) NONE SEEN /hpf [facility] URINE EPITHELIAL 0-4(A) NONE SEEN [facility] MUCUS NONE SEEN NONE SEEN /hpf [facility] BACTERIA Trace(A) NONE SEEN /hpf [facility] 04/30/2025 10:5 9 AM EDT 04/30/2025 11:08 AM EDT us Paul Alanis MD LAB URINE ORDERABLES Final Resu lt Performing Organization Address [facility] Co de Phone Number [address] [address] * ECG 12-LEAD (04/30/2025 10:47 AM EDT) Ventricular Rate EKG/MIN 76 BPM [facility] Atrial Rate 76 BPM [facility] SC Interval 170 ms [facility] QRS Duration 90 ms [facility] QT Interval 400 ms [facility] QTC Interval 450 ms [facility] P [place] 59 degrees [facility] R Wave [place] 37 degrees [facility] T Wave [place] 60 degrees [facility] 04/30/2025 10:4 7 AM EDT 05/01/2025 9:20 AM EDT Narrative [facility] - 05/01/2025 9:20 AM EDT Normal sinus rhythm Low voltage QRS Borderline ECG No previous ECGs available Confirmed by Kvng DUONG ([id number]) on 05/01/2025 9:20:53 AM us Paul Alanis MD ECG ORDERABLES Final Result [facility] from Last 3 Months Insurance [facility] ACO [facility] [address] [address] [employer] [facility] [place] [address] [address] [place] [address] ACO [facility] [employer] Care Teams Retail Field Supervisor Relationship Specialty Start Date End Date Gigi Barrow MD [address] [place] [address] PCP - General Internal Medicine 06/17/21 Additional Source Comments The information contained in this document represents components of the legal health record. It is not the complete legal health record.[facility]
[2025-06-10 08:25] VITALS: BP 110/80; PULSE 78; O2SAT 96; BMI 26.6
--- NOTE | 2025-06-10 08:25 | A.OFFVIS_ITS ---
Vital Signs 06/10/25 08:25 Height 5 ft 5 in Weight 160 lb BMI 26.6 BP 110/80 Blood Pressure Location Lt brachial Position Sitting Pulse 78 Pulse Source Pulse Oximeter Pulse Oximetry (%) 96 Oxygen Delivery Method Room Air Intake Visit Reasons: f/u to do MMSE per PA (CONF.) Intake Note: Patient presents follow up for MMSE. PSG done 06/06. Accompanied by: Self / Same As Patient Allergies latex (Latex) Allergy (Mild, Verified 06/10/25 08:30) SWELLING/ITCHING Sulfa (Sulfonamide Antibiotics) Allergy (Mild, Verified 06/10/25 08:30) SWELLING/ITCHING, pruritis sulfamethoxazole (From BACTRIM) Allergy (Unknown, Verified 06/10/25 08:30) ITCHY/HIVES trimethoprim (From BACTRIM) Allergy (Unknown, Verified 06/10/25 08:30) ITCHY/HIVES milk Allergy (Verified 06/10/25 08:30) Stomach Upset metoclopramide (From REGLAN) Adverse Reaction (Unknown, Verified 06/10/25 08:30) AGITATION HPI Comments Details: 54 y/o female comes for follow up of chronic migraines with cervicalgia. Interim Med Hx 20 April 2025, Laparsocopy for Endometriosis and Uterine polyps, [facility]. She snores loudly and has multiple arousals at night, she goes to bed at midnight and does not fall asleep. She tosses and turns until 2 am, then watches tv or reads until she finally falls asleep around 3am. Pt. continues to have daily migraines, 9/10 severity, radiating from behind her neck /temporally to the trapezius down to hands. She has cervicalgia, moving her neck to the r/l sides to look at traffic while driving causes intense pain. She takes a muscle relaxer and this can relieve her symptoms for 2 hours, however pain always persists never completely resolves. She has photophobia/phonophobia, nausea, with dizziness, balance and gait difficulty due to weakness of legs as if she is going to fall. She denies vision changes and auras.She takes sumatriptan and tylenol otc 500mg x2 capsules and her symptoms improve. She says she had 8 tumors removed from her head at [place] but can not remember when and her fh is +for benign tumors. She has difficulty remembering facts, and names, recalling words, describing places. She has brain fog and is slow to process. She continues to have RLS symptoms, of paresthesias and an uncomfortable throbbing urge to move her legs at night, she has spasms, she jumps out of bed to stretch the calves and feet. Gabapentin made her drowsy, uses Rest less leg creams and Magnalife, tiger balm topically, weighted blankets, capsicum / lidocaine patches. Her mood is stable, diet tends to be challenging as she eats many fatty foods and then feels bloated. [facility] Medical History Cervicalgia SOB (shortness of breath) Annual physical exam Urinary incontinence Post-nasal drip Cough Vertigo Sprain of left medial ankle joint Hordeolum external Dizziness Migraine Tubular adenoma of colon Calcium oxalate crystals in urine Varicose veins of legs Heart palpitations Multiple pigmented nevi Mild carpal tunnel syndrome of right wrist Chronic idiopathic constipation Tachycardia Shoulder pain, bilateral Upper abdominal pain Pre-op examination Mass of left upper extremity Left arm swelling Laceration of left hand Lightheadedness Otitis media Otitis externa Bilateral hand numbness Upper respiratory infection Low back pain Breast cancer screening by mammogram Thyroid nodule Oropharyngeal dysphagia UTI (urinary tract infection) Right kidney stone COVID-19 Chest pain Delayed gastric emptying Daytime sleepiness Snoring Migraine Unspecified Eustachian tube disorder, left ear Acute pharyngitis Urgency of micturition Abdominal pain Dysuria Diarrhea Hematuria Acute conjunctivitis of left eye Wound of right leg Abdominal cramping Allergic conjunctivitis Nephrolithiasis Colitis Interstitial cystitis Chronic cough COVID-19 long hauler COVID-19 Elevated lipase Pain in both knees Vaginal itching Suprapubic pain Vaginal spotting Hematuria Frequency of micturition Myalgia Post-vaccination reaction Palpitations Bilateral lower extremity pain Hearing deficit Frequency of micturition Toe swelling Toe pain, right Vitamin B12 deficiency Scalp cyst Vitamin D deficiency GERD (gastroesophageal reflux disease) Multiple thyroid nodules Lateral meniscal tear Restrictive lung disease Benign hematuria Hemorrhoids Irritable bowel syndrome Cervical disc herniation Impaired glucose tolerance Hypercholesterolemia Erosive esophagitis Surgical History History of hysteroscopy H/O cervical polypectomy Hx of colonoscopy H/O esophagogastroduodenoscopy S/P excision of lipoma Hx of tubal ligation History of lumpectomy of left breast Family History Father Skin cancer Mother Skin cancer High blood pressure Heart problem Maternal Grandfather Skin cancer Cancer FH: prostate cancer Brother Schizophrenia Other CVA (cerebral vascular accident) Mental health problem Social History Household Members: None Housing: Apartment Alcohol intake: never Patient Tobacco Use Status: Former Tobacco user Tobacco use type: Cigarette Years Smoked: quit 2007 e-Cigarette/Vaping Use: Never Used Second Hand Smoke Exposure: Yes service: No Current occupational status: employed 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 Current occupational exposures/hazards: No Cognitive needs: No Hearing needs: No Vision needs: No Physical Exam Vital Signs: Last Vital Signs Pulse 78 06/10/25 08:25 BP 110/80 06/10/25 08:25 Pulse Ox 96 06/10/25 08:25 Oxygen Delivery Method Room Air 06/10/25 08:25 BMI result Body Mass Index 26.6 Const General: cooperative and no acute distress Nutritional Appearance: average body habitus Orientation/consciousness: patient oriented x3 Limitations: language barrier (switches from estonian to macedonian to estonian) HEENT Face and sinus: Yes face symmetric Teeth and gingiva: other (mallampti score is 3) Eyes Pupils: Equal, round and reactive pupils present Neck Other: limited rom Neck: Yes torticollis Resp Effort & Inspection: normal respiratory effort and able to speak in complete sentences Neuro Other: stiffness in the neck trapezius, upon flexion/ ext/ lateral rotation limited torticollis General: patient oriented x3 Cranial nerves: Yes Equal, round and reactive pupils present, Yes Normal accommodation reflex present and Yes Normal facial strength present Gait exam (Neuro): Normal gait present Motor exam (neuro): 5/5 motor strength present throughout and Normal motor muscle tone present throughout Psych Appearance: grossly normal Attitude: cooperative Results Reviewed Results Reviewed: ED note 04/2025 Assessment & Plan Assessment & Plan (1) Excessive daytime sleepiness: Code(s): G47.19 - Other hypersomnia Category: Medical (2) Daytime sleepiness: Code(s): R40.0 - Somnolence Category: Medical (3) Loud snoring: Code(s): R06.83 - Snoring Category: Medical (4) Memory change: Code(s): R41.3 - Other amnesia Category: Medical (5) Cervicalgia: Code(s): M54.2 - Cervicalgia Category: Medical (6) Vertigo: Comment: ? BPPV ? related to cervical spasm Code(s): R42 - Dizziness and giddiness Category: Medical (7) Migraine: Code(s): G43.909 - Migraine, unspecified, not intractable, without status migrainosus Category: Medical Qualifiers: Intractability: intractable Migraine type: chronic migraine (15 or more days per month) without aura Status migrainosus presence: without status migrainosus Qualified Code(s): G43.719 - Chronic migraine without aura, intractable, without status migrainosus (8) Snoring: Code(s): R06.83 - Snoring Category: Medical (9) Cervical spine arthritis with nerve pain: Comment: bulging disc, herniated, disc, with endplate spurs no foraminal stenosis. Code(s): M47.812 - Spondylosis without myelopathy or radiculopathy, cervical region; M79.2 - Neuralgia and neuritis, unspecified Category: Medical (10) Vitamin D deficiency: Code(s): E55.9 - Vitamin D deficiency, unspecified Category: Medical (11) Hx of migraines: Code(s): Z86.69 - Personal history of other diseases of the nervous system and sense organs Category: Medical (12) Stiff neck: Code(s): M43.6 - Torticollis Category: Medical Plan: declines botox Plan Daytime fatigue PSG is normal, no evidence of SHAWN Snoring Sleep dentistry for oral / mandibular device evaluation. Cervicalgia / neck stiffness will evaluate with PT in hopes of improving rom, continue 5mg PO Baclofen for neck pain. If you are out of Baclofen, you may continue to use Cyclobenzaprine / Flexiril 5mg po daily for neck stiffness and trapezius pain. Cognitive Decline MMSE? Multi-tasking? Stressed? Migraines Episodic will start her on Sumatriptan 50mg po at the onset of migraine and may take one additional tablet if migraine does not abort. Do not exceed more than 200mg in a 24 hour period. Will send rx for Ubrelvy prn headaches. Continue to take magnesium 400 mg qhs. Continue to take B2 200mg po qhs. may adjunct with otc tylenol. Use a migraine cap, keep in fridge / freezer, put on head/ forehead / and lay down for 20 min as needed with lights off in a quiet room. RLS will monitor continue otc ointments, RLS cream, tiger balm, bengay, weighted blankets, lidocaine as needed. MRI head for cognitive decline, (MRI was declined, pt declines CTscan due to radiation) FH + Tumors Labs reviewed with pt. Vit D is low, will refill. Medications: Refilled cholecalciferol (vitamin D3) 50 mcg PO DAILY 90 tabs 3RF E55.9 - Vitamin D deficiency, unspecified Patient Instructions: Sleep Hygiene provided: set a scheduled bedtime and wake time to help regulate the circadian rhythm and balance the release of pituitary hormones. Sleep in a dark room, temperatures below 68 degrees, and no devices n bed. Limit caffeinated products 6 hours prior to bed, and limit fluids 2-4 hours prior to bed. Gentle night yoga, diffusing essential oils, and playing soft music can be relaxing. Coding Level of Care Code Est Pt Level 4 (94524) Diagnoses Excessive daytime sleepiness G47.19 Daytime sleepiness R40.0 Loud snoring R06.83 Memory change R41.3 Cervicalgia M54.2 Vertigo R42 Intractable chronic migraine without aura and without status migrainosus G43.719 Intractability: intractable Migraine type: chronic migraine (15 or more days per month) without aura Status migrainosus presence: without status migrainosus Snoring R06.83 Cervical spine arthritis with nerve pain M47.812; M79.2 Vitamin D deficiency E55.9 Hx of migraines Z86.69 Stiff neck M43.6
== END 2025-06-10 09:23 | disposition home or self-care (01) ==
LOC: HO.HSMS 08:16
PROVIDERS: PCP Internal Medicine; Visit Provider Physician Assistant Medical
DX: G47.19 Other hypersomnia (principal); R40.0 Somnolence; R06.83 Snoring; R41.3 Other amnesia; M54.2 Cervicalgia; R42 Dizziness and giddiness; G43.719 Chronic migraine without aura, intractable, without status migrainosus; M47.812 Spondylosis without myelopathy or radiculopathy, cervical region; M79.2 Neuralgia and neuritis, unspecified; E55.9 Vitamin D deficiency, unspecified; Z86.69 Personal history of other diseases of the nervous system and sense organs; M43.6 Torticollis
CPT/HCPCS: 99214

== ENCOUNTER → 2025-06-10 08:15 | Outpatient (BNVA) | payer OTHER, SELFPAY | PROVIDERS: PCP Internal Medicine; Visit Provider Physician Assistant Medical | DX: R42 Dizziness and giddiness (principal); R06.83 Snoring; M54.2 Cervicalgia; R40.0 Somnolence; G47.19 Other hypersomnia; R41.3 Other amnesia; M43.6 Torticollis; E55.9 Vitamin D deficiency, unspecified; M47.812 Spondylosis without myelopathy or radiculopathy, cervical region; M79.2 Neuralgia and neuritis, unspecified; Z86.69 Personal history of other diseases of the nervous system and sense organs | CPT/HCPCS: 99212 ==

== ENCOUNTER 2025-06-11 07:51 | Outpatient (REF) | payer OTHER, SELFPAY ==
--- OUTSIDE RECORDS SUMMARY | 2025-06-11 07:54 | XMS_ITS | Clinical Summary ---
Author Organization [facility] Address [address] [place] [address] Phone Care Team Providers Care Edge Drummer Name Role Phone Gigi Barrow MD Primary Care Provider [phone] Allergies Active Allergy Reactions Criticality Noted Date [...] We requested her US results from [facility], but they will not [...] Office Visit Obstetrics [facility] [address] [place], [place] [address] [address] Luly Brown DO Abnormal uterine bleeding (Primary Dx) 05/02/2025 [facility] [address] [place] [address] Irene [place] [phone] Luly Brown DO 04/27/2025 Telephone Obstetrics [facility] Gynecology - [facility] [address] [place] [address] Luly Brown DO 04/27/2025 Results Follow-Up Obstetrics and Gynecology - [facility] [address] [place] [address] Fozia Sawant MA 04/25/2025 Telephone Obstetrics and Gynecology - [facility] [address] [place] [address] Luly Brown DO 04/20/2025 9:00 AM EDT - 04/20/2025 10:30 AM EDT Surgery [facility] OR [address] [place] [phone] Luly Brown DO HYSTEROSCOPY with D&C & MYOSURE [74908 (CPT )] 04/20/2025 8:42 AM EDT Anesthesia Event [facility] OR [address] [place] [phone] Feliciano Padilla DO 04/20/2025 7:18 AM EDT - 04/20/2025 11:15 AM EDT Hospital Encounter [facility] [place] [address] [place] [phone] Luly Brown DO Postmenopausal bleeding Discharge Disposition: Home or Self Care 04/19/2025 Telephone Obstetrics and Gynecology - [facility] [address] [address] Luly Bronw DO from Last 3 Months Immunizations Immunization [...] 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 Not on file Not [...] LMA(NO CHARGE) Routine 04/20/2025 8:54 AM EDT [place] HYSTEROSCOPY W/BIOPSY ENDOMETRIUM AND/OR POLYPECTOMY W/O AND/OR [...] and culture (04/26/2025 12:01 PM EDT) Specific [place] Urine 1.041(H) 1.003 - 1.030 LAB URINALYSIS - AUTOMATED METHOD [facility], Urine 5.0 5.0 - 8.0 pH LAB URINALYSIS - AUTOMATED METHOD 04/26/2025 1:18 PM [facility] Leukocytes, Urine Moderate(A) Negative LAB URINALYSIS - AUTOMATED METHOD 04/26/2025 1:18 PM [facility] Nitrite, Urine Negative Negative LAB URINALYSIS - AUTOMATED METHOD 04/26/2025 1:18 PM [facility] Protein, Urine 100(A) <=Trace mg/dL LAB URINALYSIS - AUTOMATED METHOD 04/26/2025 1:18 PM [facility] Glucose, Urine Negative Negative mg/dL LAB URINALYSIS - AUTOMATED METHOD 04/26/2025 1:18 PM [facility] Ketones, Urine Trace(A) Negative mg/dL LAB URINALYSIS - AUTOMATED METHOD 04/26/2025 1:18 PM [facility] Urobilinogen , Urine 1.0 0.2 - 1.0 mg/dL LAB URINALYSIS - AUTOMATED METHOD 04/26/2025 1:18 PM [facility] Bilirubin, Urine Negative Negative LAB URINALYSIS - AUTOMATED METHOD 04/26/2025 1:18 PM EDT [facility] Blood, Urine Large(A) Negative LAB URINALYSIS - AUTOMATED METHOD 04/26/2025 1:18 PM EDT [facility] RBC, Urine 3,018.9(H) 0 - 4 /HPF LAB URINALYSIS - AUTOMATED METHOD 04/26/2025 1:18 PM EDT [facility] WBC, Urine 20.0(H) 0 - 4 /HPF LAB URINALYSIS - AUTOMATED METHOD 04/26/2025 1:18 PM EDT [facility] Squamous Epithelial, Urine 14 0 - 60 /LPF LAB URINALYSIS - AUTOMATED METHOD 04/26/2025 1:18 PM EDT [facility] Bacteria, Urine Negative Negative /HPF LAB URINALYSIS - AUTOMATED METHOD 04/26/2025 1:18 PM EDT [facility] Hyaline Casts, Urine 3.0 0 - 3 /LPF LAB URINALYSIS - AUTOMATED METHOD 04/26/2025 1:18 PM EDT [facility] Urine Urine specimen obtained by clean catch procedure / Unknown Non-blood Collection / Unknown 04/26/2025 12:01 PM EDT 04/26/2025 12:49 PM EDT Luly Brown DO LAB URINE ORDERABLES Final Re sult [facility] [address] [place] [address], * Horton urine culture tube (04/26/2025 12:01 PM EDT) Extra Tube Hold for add-ons. 04/26/2025 2:01 PM EDT [facility] Comment:Auto resulted. Urine Urine specimen obtained by clean catch procedure / Unknown Non-blood Collection / Unknown 04/26/2025 12:01 PM EDT 04/26/2025 12:51 PM EDT Luly Stephanie LAB URINE ORDERABLES Final Re sult Performing Organization Address City/[facility]/ZIP Co de Phone Number [facility] [address] [place] [address], [place] [phone] * Culture urine (04/26/2025 12:01 PM EDT) Culture, Urine <10,000 CFU/mL gram negative bacilli, insignificant count, no further workup 04/27/2025 10:00 AM EDT [facility] Urine Urine specimen obtained by clean catch procedure / Unknown Non-blood Collection / Unknown 04/26/2025 12:01 PM EDT 04/26/2025 1:18 PM EDT Luly Stephanie LAB MICROBIOLOGY - GENERAL OR DERABLES Final Result Performing Organization Address [facility]/ZIP Co de Phone Number [facility] [address] [place] [address], [place] [phone] * Tissue exam (04/20/2025 9:04 AM EDT) Final Diagnosis Endometrial polyp, MyoSure resection: Benign endometrial polyp Inactive endometrium 04/21/2025 9:55 AM EDT [facility] Gross Description A. Endometrium, Polyp: Labeled endometri endo- . Received in formalin, in a mesh bag, is a 2.0 x 0.8 x 0.2 cm aggregate of soft to rubbery, garcia-white to pink-red shredded portions of tissue which are wrapped in paper and submitted in toto in one cassette, multiple pieces, x 2. TS 04/21/2025 9:55 AM EDT [facility] Disclaimer Unless otherwise specified, all tissue is 10% NB formalin fixed and paraffin embedded. 04/21/2025 9:55 AM EDT [facility] Tissue Endometrial structure / Unknown 04/20/2025 9:04 AM EDT 04/20/2025 10:20 AM EDT Result [facility] Luly Brown DO LAB PATHOLOGY ORDERABLES Joy l Result [facility] [address] [place] [address], * TH AN LMA(NO CHARGE) (04/20/2025 8:54 [...] * Cervical Cancer Screening: HPV (10/21/2023) Pathologist [facility] Cervical Cancer Screening: HPV Negative,A bstracted Historical Provider HEALTH MAINTENANCE Final Result * Hepatitis C Screening (10/21/2023) [facility] Hepatitis C Screening Abstracted Historical Provider HEALTH MAINTENANCE Final Result * Lipid panel (02/26/2012) [facility] LDL/HDL Ratio 0 Comment:no interpetation,Abs tracted [...] Most Recently Relevant to Health Maintenance Insurance [facility] [employer] PLAN Advance Directives * Full Code - [...] currently active code status orders. Care Teams Edge Drummer Relationship Specialty Start Date End Date Gigi Barrow MD [address] [place] [address] [address] [facility] [place] [address] PCP - General Internal Medicine 02/20/16
--- OUTSIDE RECORDS SUMMARY | 2025-06-11 07:54 | XMS_ITS | Encounter Summary ---
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
--- OUTSIDE RECORDS SUMMARY | 2025-06-11 07:55 | XMS_ITS | Clinical Summary ---
Author Organization [facility] Address [address] [address] Phone Care Team Providers Care Er Nurse Name Role Phone Gigi Barrow MD Primary Care Provider [phone] Allergies Active Allergy Reactions Criticality Noted Date Comments Sulfamethoxazole-Trimethoprim Rash Low 2024 Latex 06/17/2021 Metoclopramide Hcl 06/17/2021 Sulfa (Sulfonamide Antibiotics) 05/29 Medications norethindrone (AYGESTIN) 5 mg tablet Take 1 tablet (5 mg total) by mouth daily. 30 tablet 04/30/2025 Active Encounters Date Type Department Care Team Description 04/30/2025 10:55 AM EDT - 04/30/2025 2:38 PM EDT Emergency [facility] [address] [place] [address] Paul Alanis MD Discharge Disposition: Home or [...] HS Gen5 <6 0 - 9 ng/L [facility] Blood 04/30/2025 12:3 4 PM EDT 04/30/2025 12:51 PM EDT us Paul Alanis MD LAB BLOOD BKR ORDERABLES Final Result [address] [address] * Hold Specimen In Blood Bank (04/30/2025 11:24 AM EDT) Expiration Date of Sample 05/03/2025 ,2359 [facility] Resulting Agency [facility] Blood 04/30/2025 11:2 4 AM EDT 04/30/2025 11:35 AM EDT us Paul Alanis MD LAB BLOOD BANK TEST ORDERABLES Final Result [address] [address] * LFTs (hepatic panel) (04/30/2025 11:24 AM EDT) ALKALINE PHOSPHATASE 86 39 - 117 U/L [facility] TOTAL BILIRUBIN 0.3 0.0 - 1.2 mg/dL [facility] DIRECT BILIRUBIN <0.1 0.0 - 0.2 mg/dL [facility] Bilirubin (Indirect) NOT CALCULATED 0 - 1.5 mg/dL [facility] AST 15 0 - 37 U/L [facility] ALT 16 0 - 40 U/L [facility] TOTAL PROTEIN 7.3 6.5 - 8.0 g/dL [facility] ALBUMIN 4.3 3.9 - 4.8 g/dL [facility] GLOBULIN 3.0 1 - 4.8 g/dL [facility] A/G Ratio 1.43 1.00 - 4.80 RATIO [facility] Blood 04/30/2025 11:2 4 AM EDT 04/30/2025 11:34 AM EDT us Paul Alanis MD LAB BLOOD BKR ORDERABLES Final Result [address] [address] * CBC and differential (04/30/2025 11:24 AM EDT) WBC 7.92 4.00 - 11.00 K/uL [facility] RBC 4.66 4.00 - 5.20 M/uL [facility] HGB 13.6 12.0 - 16.0 g/dL [facility] HCT 40.7 36.0 - 46.0 % [facility] PLT 337 150 - 450 K/uL [facility] MCV 87.3 80.0 - 100.0 fL [facility] MCH 29.2 27.0 - 31.0 pg [facility] MCHC 33.4 32.0 - 36.0 g/dL [facility] RDW 12.7 11.5 - 14.5 % [facility] MPV 9.7 8.4 - 12.0 fL [facility] NRBC 0.00 0.00 /100 WBCs [facility] ABSOLUTE NRBC 0.00 0.00 K/uL [facility] DIFF METHOD Auto [facility] NEUTS 56.2 48.0 - 76.0 % [facility] LYMPHS 33.3 18.0 - 41.0 % [facility] MONOS 7.4 4.0 - 11.0 % [facility] EOS 2.1 0.0 - 5.0 % [facility] BASOS 0.5 0.0 - 1.5 % [facility] Granulocytes, immature (%) 0.5 0.0 - 0.9 % [facility] ABSOLUTE NEUTS 4.44 1.92 - 7.60 K/uL [facility] ABSOLUTE LYMPHS 2.64 0.72 - 4.10 K/uL [facility] ABSOLUTE MONOS 0.59 0.16 - 1.10 K/uL [facility] ABSOLUTE EOS 0.17 0.00 - 0.50 K/uL [facility] ABSOLUTE BASOS 0.04 0.00 - 0.15 K/uL [facility] Granulocytes, immature 0.04 0.00 - 0.09 K/uL [facility] Blood 04/30/2025 11:2 4 AM EDT 04/30/2025 11:34 AM EDT us Paul Alanis MD LAB BLOOD BKR ORDERABLES Final Result [facility] [address] [place] [address] * NT-proBNP (04/30/2025 11:24 AM EDT) NT-PROBNP <36 0 - 125 pg/mL [facility] Blood 04/30/2025 11:2 4 AM EDT 04/30/2025 11:34 AM EDT us Paul Alanis MD LAB BLOOD BKR ORDERABLES Final Result [address] [address] * (ABNORMAL) Lipase (04/30/2025 11:24 AM EDT) Pathologist [facility] LIPASE 66(H) 16 - 63 U/L [facility] Blood 04/30/2025 11:2 4 AM EDT 04/30/2025 11:34 AM EDT us Paul Alanis MD LAB BLOOD BKR ORDERABLES Final Result Performing Organization Address [facility]/ZIP Co de Phone Number [address] [address] * (ABNORMAL) Basic metabolic panel (04/30/2025 11:24 AM EDT) SODIUM 137 133 - 146 mmol/L [facility] CHLORIDE 103 96 - 108 mmol/L [facility] POTASSIUM 4.0 3.3 - 5.1 mmol/L [facility] CO2 23 21 - 35 mmol/L [facility] BUN 16 6 - 19 mg/dL [facility] CREATININE 0.50 0.5 - 1.5 mg/dL [facility] GLUCOSE 105(H) 70 - 99 mg/dL [facility] CALCIUM 9.3 8.4 - 10.3 mg/dL [facility] EGFR 111 >59 mL/min/1.7 3m2 [facility] Comment:Estimated glomerular filtration rate calculated using the CKD-EPI refit equation. ANION GAP 15 10 - 20 mmol/L [facility] Blood 04/30/2025 11:2 4 AM EDT 04/30/2025 11:34 AM EDT us Paul Alanis MD LAB BLOOD BKR ORDERABLES Final Result [facility] [address] [place] [address] * XR CHEST PA AND LATERAL 2 VIEWS (04/30/2025 11:23 AM EDT) Anatomical Region Laterality Modality Chest Computed Radiogr aphy 04/30/2025 12:1 5 PM EDT Impressions 04/30/2025 12:15 PM EDT No acute abnormality. Narrative 04/30/2025 12:15 PM EDT XR CHEST PA AND LATERAL 2 VIEWS Referring clinician's provided indication for this examination in [facility]: Dyspnea (Shortness of Breath) COMPARISON: None FINDINGS: Devices/Tubes/Lines: None. Lungs: No focal consolidation or pulmonary edema. Pleura: No pleural effusion or pneumothorax. Heart/Mediastinum: Normal heart and mediastinum. Bones/Soft Tissues: Mild thoracic spine degenerative changes. Procedure Note Anastacio Martin MD, PhD - 04/30/2025 XR CHEST PA AND LATERAL 2 VIEWS Referring clinician's provided indication for this examination in [facility]:Dyspnea (Shortness of Breath) COMPARISON: None FINDINGS: Devices/Tubes/Lines: None. Lungs: No focal consolidation or pulmonary edema. Pleura: No pleural effusion or pneumothorax. Heart/Mediastinum: Normal heart and mediastinum. Bones/Soft Tissues: Mild thoracic spine degenerative changes. IMPRESSION: No acute abnormality. us Paul Alanis MD IMG XR CHEST Final Result * (ABNORMAL) Urinalysis w/reflex Urine Culture (04/30/2025 10:59 AM EDT) COLOR Yellow Yellow [facility] CLARITY Clear [facility] GLUCOSE Negative Negative [facility] BILI Negative Negative [facility] KETONES Negative Negative [facility] SPECIFIC GRAVITY 1.010 1.005 - 1.030 [facility] BLOOD 3+(A) Negative [facility] PH 6.0 5.0 - 8.0 [facility] Protein-UA Negative Negative [facility] NITRITE Negative Negative [facility] Leukocyte esterase, ur Negative Negative [facility] Urine (Urine) 04/30/2025 10: 59 AM EDT 04/30/2025 11:08 AM EDT us Paul Alanis MD LAB URINE ORDERABLES Final Resu lt Performing Organization Address [facility] Co de Phone Number [address] [address] * (ABNORMAL) Urine sediment (04/30/2025 10:59 AM EDT) WBC 0-4(A) NONE SEEN /hpf [facility] RBC 50-100(A) NONE SEEN /hpf [facility] URINE EPITHELIAL 0-4(A) NONE SEEN [facility] MUCUS NONE SEEN NONE SEEN /hpf [facility] BACTERIA Trace(A) NONE SEEN /hpf [facility] 04/30/2025 10:5 9 AM EDT 04/30/2025 11:08 AM EDT us Paul Alanis MD LAB URINE ORDERABLES Final Resu lt Performing Organization Address [facility] Co de Phone Number [address] [address] * ECG 12-LEAD (04/30/2025 10:47 AM EDT) Ventricular Rate EKG/MIN 76 BPM [facility] Atrial Rate 76 BPM [facility] TX Interval 170 ms [facility] QRS Duration 90 ms [facility] QT Interval 400 ms [facility] QTC Interval 450 ms [facility] P [place] 59 degrees [facility] R Wave [place] 37 degrees [facility] T Wave [place] 60 degrees [facility] 04/30/2025 10:4 7 AM EDT 05/01/2025 9:20 AM EDT Narrative [facility] - 05/01/2025 9:20 AM EDT Normal sinus rhythm Low voltage QRS Borderline ECG No previous ECGs available Confirmed by Kvng DUONG ([id number]) on 05/01/2025 9:20:53 AM us Paul Alanis MD ECG ORDERABLES Final Result GRACE from Last 3 Months Insurance [facility] ACO [facility]CO [facility] [address] [place] [address] [employer]CO [employer] [facility] [place] [address] [place] [address] ACO [facility] ACO Care Teams Er Nurse Relationship Specialty Start Date End Date Gigi Barrow MD [address] [place] [address] PCP - General Internal Medicine 06/17/21 Additional Source Comments The information contained in this document represents components of the legal health record. It is not the complete legal health record.[facility]
[2025-06-11 08:06] LABS: MANUAL DIFF FLAG NO
[2025-06-11 08:19] LABS: Hematocrit 42.5 % (37.0-47.0); Hemoglobin 13.9 g/dl (12.0-16.0); Imm Gran Abs Auto 0.02 X10*3/uL (0.00-0.03); Imm Gran Pct Auto 0.3 % (0.0-0.4); Lymphocytes Absolute Auto 2.3 X10*3/uL (1.2-4.9); Mean Corpuscular HGB Conc 32.7 g/dl (31.0-35.0); Mean Corpuscular Hemoglobin 28.7 pg (27.0-33.0); Mean Corpuscular Volume 87.6 fL (80.0-98.0); NRBC Abs Auto 0.000 X10*3/uL (0.0-0.012); NRBC Pct Auto 0.0 /100WBC (0.0-0.2); Platelet Count 326 X10*3/uL (160-400); Red Blood Count 4.85 X10*6/uL (4.20-5.50); Reticulocytes Absolute 0.089 X10*6/uL (0.026-0.095); White Blood Count 6.6 X10*3/uL (4.8-10.8)
[2025-06-11 08:54] LABS: Alanine Aminotransferase 25 U/L (0-31); Albumin Level 4.4 g/dL (3.5-5.0); Alkaline Phosphatase 79 U/L (39-117); Anion Gap 12 (12-20); Aspartate Amino Transferase 23 U/L (5-31); Blood Urea Nitrogen 16 mg/dL (9-16); Calcium 9.8 mg/dL (8.4-10.2); Carbon Dioxide 23 mmol/L (22-29); Chloride 110 mmol/L (96-108); Cholesterol 212 mg/dL (<200); Estimated Glomerular Filt Rate > 60; HDL Cholesterol 52 mg/dL (>40); Iron 127 mcg/dL (30-160); Percent Iron Saturation 35 % (15-50); Potassium 4.1 mmol/L (3.3-5.1); Sodium 141 mmol/L (135-145); Total Iron Binding Capacity 366 mcg/dL (228-428); Total Protein 7.2 g/dL (6.5-8.0); Triglycerides 180 mg/dL (<150); Unsaturated Iron Binding 239 ug/dL
[2025-06-11 09:12] LABS: Ferritin 114 ng/mL (10-250); Free T4 (Free Thyroxine) 0.99 ng/dL (0.71-1.85); Thyroid Stimulating Hormone 1.91 uIU/mL (0.32-4.0)
[2025-06-11 09:27] LABS: Folate 8.9 ng/mL (> or = 4.0); Vitamin B12 374 pg/mL (200-900)
[2025-06-11 09:32] LABS: Appearance Urine Clear; Glucose Urine UA Negative (Negative); PH 6.0 (5.0-9.0); Specific Gravity - Urine 1.025 (1.005-1.025); UMIC TRIGGER UACC YES
[2025-06-11 09:38] LABS: UACC Culture Trigger YES
== END 2025-06-11 07:52 | disposition home or self-care (01) ==
LOC: HO.LAB 07:51
PROVIDERS: Nurse Practitioner Family; PCP Internal Medicine; Visit Provider Internal Medicine
DX: E78.00 Pure hypercholesterolemia, unspecified (principal); Z91.09 Other allergy status, other than to drugs and biological substances
CPT/HCPCS: 36415; 80053; 80061; 81001; 82306; 82607; 82728; 82746; 82785; 83540; 84439; 84443; 85025; 85045; 87086

== ENCOUNTER 2025-06-13 14:30 | Outpatient (AMB) | payer OTHER, SELFPAY ==
[2025-06-13 14:37] VITALS: BP 114/70; PULSE 78; O2SAT 98; BMI 27.3
--- NOTE | 2025-06-13 14:37 | A.OFFPC_ITS ---
Vital Signs 06/13/25 14:37 Height 5 ft 4 in Weight 159 lb BMI 27.3 BP 114/70 Blood Pressure Location Lt brachial Position Sitting Pulse 78 Pulse Source Pulse Oximeter Pulse Oximetry (%) 98 Oxygen Delivery Method Room Air Intake Visit Reasons: Shortness of breath Allergies latex (Latex) Allergy (Mild, Verified 06/13/25 14:37) SWELLING/ITCHING Sulfa (Sulfonamide Antibiotics) Allergy (Mild, Verified 06/13/25 14:37) SWELLING/ITCHING, pruritis sulfamethoxazole (From BACTRIM) Allergy (Unknown, Verified 06/13/25 14:37) ITCHY/HIVES trimethoprim (From BACTRIM) Allergy (Unknown, Verified 06/13/25 14:37) ITCHY/HIVES milk Allergy (Verified 06/13/25 14:37) Stomach Upset metoclopramide (From REGLAN) Adverse Reaction (Unknown, Verified 06/13/25 14:37) AGITATION Medication List - Last Reconciled 06/13/25 by Gigi Fraser Po, albuterol sulfate 90 mcg/actuation (Ventolin HFA) 1 puff inhalation QID PRN atorvastatin 20 mg PO DAILY baclofen 5 mg PO BEDTIME MDD 10mg blood pressure monitor (Blood Pressure Kit) As directed cetirizine 10 mg PO DAILY cholecalciferol (vitamin D3) 50 mcg PO DAILY cyclobenzaprine 5 mg PO BEDTIME 3 months dicyclomine 20 mg PO QID PRN famotidine (Pepcid) 40 mg PO BEDTIME fenofibrate 160 mg PO DAILY ferrous sulfate 325 mg PO DAILY 3 months MDD 325mg po fexofenadine (Aurea Allergy) 180 mg PO DAILY fluticasone propionate 50 mcg/actuation (Flonase Allergy Relief) 2 sprays intranasal DAILY Lactobacillus acidophilus 100 mg PO DAILY magnesium oxide 400 mg PO DAILY meclizine 25 mg PO BID PRN multivitamin 1 tab PO DAILY nitrofurantoin monohyd/m-cryst 100 mg (Macrobid) 100 mg PO Q12H 5 days pantoprazole 40 mg PO DAILY riboflavin (vitamin B2) 100 mg PO DAILY 4 months MDD 100mg po sumatriptan succinate take 1 tab at onset of headache; if no relief may repeat 1 tab after at least 2 hrs; max = 4 tabs/24 hr PO 1 month MDD 200 Tobacco use date assessed: 05/02/25 Dental Screening Dental Screen Date: 05/02/25 HPI HPI Comments History of Present Illness Details History of Present Illness The patient is a 54-year-old female presenting for a follow-up visit. Her past medical history includes migraine, interstitial cystitis, generalized anxiety disorder, lumbar radiculopathy, impaired glucose tolerance, and hypercholesterolemia. Regarding her migraines, the patient is followed by neurology, with a recent visit in May. Her treatment for episodic migraine includes magnesium and Hemlibra. For her gastrointestinal issues, including irritable bowel syndrome and reflux, she was seen by gastroenterology in May. She has been advised to take dicyclomine, omeprazole, and famotidine in the evening for breakthrough symptoms. The patient has seen a maintenance service supervisor for shortness of breath and was advised to undergo an updated pulmonary function test. A CT scan of the chest may be considered if abnormalities are noted. In March, she underwent removal of a uterine polyp and an ablation, with follow-up notes from gynecology received in April. Recent blood work from June 11 showed a normal blood count, electrolytes, and renal function. Her blood sugar was 109 mg/dL, and her liver function was normal. Triglycerides remain elevated at 180 mg/dL, though improved from 267 mg/dL, and her LDL cholesterol was 124 mg/dL. Her vitamin D level is low. A urinalysis showed an infection. Her health maintenance includes an up-to-date mammogram from July 2024 and a colonoscopy from March 2024. The patient reports new complaints of neck pain, daily headaches, and hands that fall asleep. She states she has chronic arthritis in her neck and previously had an MRI, though the results are not available in her chart. A cervical spine x- ray from July showed no acute bone pathology. Health Maintenance The patient has pending results from a recent sleep study. She is scheduled for a follow-up appointment in 3 months to re-evaluate her cholesterol and blood sugar levels. Social History - Employment: Patient is unemployed. - Stressors: Reports stress due to unemp loyment, increased rent, and the upcoming holidays. Results - Labs (June 11): - CBC: Normal. Not anemic. White blood c ell and platelet counts are within normal limits. Eosinophils are slightly elevated, suggestive of allergies. - Basic Metabolic Panel: Electrolytes an d renal function are normal. Blood sugar is 109 mg/dL. - Liver Function Tests: Normal. - Lipid Panel: Triglycerides 180 mg/dL, LDL cholesterol 124 mg/dL, HDL cholesterol 52 mg/dL. - Vitamin D: Low. - Thyroid function: Normal. - Urinalysis: Results show infection wit h 21-50 white blood cells and some red blood cells. - Imaging: - Cervical Spine X-ray (August 20): M ild straightening of the cervical lordosis; no acute bone pathology. - Other Diagnostics: - Sleep Study: Performed recently; resul ts are pending. [facility] Medical History (Updated 06/13/25 @ 14:51 by Gigi Barrow MD) UTI (urinary tract infection) Cervicalgia SOB (shortness of breath) Annual physical exam Urinary incontinence Post-nasal drip Cough Vertigo Sprain of left medial ankle joint Hordeolum external Dizziness Migraine Tubular adenoma of colon Calcium oxalate crystals in urine Varicose veins of legs Heart palpitations Multiple pigmented nevi Mild carpal tunnel syndrome of right wrist Chronic idiopathic constipation Tachycardia Shoulder pain, bilateral Upper abdominal pain Pre-op examination Mass of left upper extremity Left arm swelling Laceration of left hand Lightheadedness Otitis media Otitis externa Bilateral hand numbness Upper respiratory infection Low back pain Breast cancer screening by mammogram Thyroid nodule Oropharyngeal dysphagia Right kidney stone COVID-19 Chest pain Delayed gastric emptying Daytime sleepiness Snoring Migraine Unspecified Eustachian tube disorder, left ear Acute pharyngitis Urgency of micturition Abdominal pain Dysuria Diarrhea Hematuria Acute conjunctivitis of left eye Wound of right leg Abdominal cramping Allergic conjunctivitis Nephrolithiasis Colitis Interstitial cystitis Chronic cough COVID-19 long hauler COVID-19 Elevated lipase Pain in both knees Vaginal itching Suprapubic pain Vaginal spotting Hematuria Frequency of micturition Myalgia Post-vaccination reaction Palpitations Bilateral lower extremity pain Hearing deficit Frequency of micturition Toe swelling Toe pain, right Vitamin B12 deficiency Scalp cyst Vitamin D deficiency GERD (gastroesophageal reflux disease) Multiple thyroid nodules Lateral meniscal tear Restrictive lung disease Benign hematuria Hemorrhoids Irritable bowel syndrome Cervical disc herniation Impaired glucose tolerance Hypercholesterolemia Erosive esophagitis Surgical History History of hysteroscopy H/O cervical polypectomy Hx of colonoscopy H/O esophagogastroduodenoscopy S/P excision of lipoma Hx of tubal ligation History of lumpectomy of left breast Family History Father Skin cancer Mother Skin cancer High blood pressure Heart problem Maternal Grandfather Skin cancer Cancer FH: prostate cancer Brother Schizophrenia Other CVA (cerebral vascular accident) Mental health problem Social History Household Members: None Housing: Apartment Alcohol intake: never Patient Tobacco Use Status: Former Tobacco user Tobacco use type: Cigarette Years Smoked: quit 2007 e-Cigarette/Vaping Use: Never Used Second Hand Smoke Exposure: Yes service: No Current occupational status: employed 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 1. Little interest or pleasure in doing things: not at all 2. Feeling down, depressed, or hopeless: not at all 3. Trouble falling or staying asleep, or sleeping too much: not at all 4. Feeling tired or having little energy: nearly every day 5. Poor appetite or overeating: not at all 6. Feeling bad about yourself - or that you are a failure or have let yourself or your family down: not at all 7. Trouble concentrating on things, such as reading the newspaper or watching television: not at all 8. Moving or speaking so slowly that other people could have noticed. Or the opposite - being so fidgety or restless that you have been moving around a lot more than usual: not at all 9. Thoughts that you would be better off or of hurting yourself in some way: not at all Total score: 3 Depression Screening Interpretation: Positive Depression Screening Done: Yes Source: Developed by Drs. Bill Morris, Chiquis Webster, Duke Madera and colleagues, with an educational claudia from [employer]. Thrive Questionnaire Date Thrive assessed: 02/21/25 PACO-7 AMB Questionnaire PACO-7 Date PACO - 7 assessed: 02/21/25 Source: Developed by Drs. Bill Morris, Chiquis Webster, Duke Madera and colleagues, with an educational claudia from [employer]. Review of Systems Narrative Review of Systems - Respiratory: Reports shortness of breath. - HEENT: Reports itchy ears and a feeling of something in her ear when lying down at night. - Neurological: Reports daily headaches and notes her hands fall asleep. - Musculoskeletal: Reports neck pain that has been killing her. Physical exam (Primary Care) Vital Signs: Last Vital Signs Pulse 78 06/13/25 14:37 BP 114/70 06/13/25 14:37 Pulse Ox 98 06/13/25 14:37 Oxygen Delivery Method Room Air 06/13/25 14:37 BMI result Body Mass Index 27.3 Tobacco/Smoking Status: Tobacco use Status Tobacco use date assessed 05/02/25 06/13/25 14:38 Patient Tobacco Use Status Former Tobacco user 06/13/25 14:38 Tobacco use type Cigarette 06/13/25 14:38 e-Cigarette/Vaping Use Never Used 06/13/25 14:38 PHQ-9: PHQ-9 Score PHQ-9: Total score 3 06/13/25 14:52 Depression Screening Interpretation: Positive Thrive Assessment: Date of Thrive Assessment Date Thrive assessed 02/21/25 06/13/25 14:38 Narrative Physical Exam - HEENT: Otoscopic exam reveals some cerumen, which is not occlusive. There is no tenderness with auricular traction or pressure on the tragus. - Cardiovascular: Heart auscultated with findings not specified. - Respiratory: Lungs auscultated with findings not specified. Const General: alert; No acute distress Eyes Conjunctivae: conjunctivae normal Resp Auscultation: clear to auscultation bilaterally Cardio Rate: regular rate Rhythm: regular rhythm GI Inspection: Yes normal to inspection Extrem General: Yes normal to inspection and No edema Coding Level of Care Code Est Pt Level 4 (75620) Complex EM visit Add On G2211 Diagnoses Hypercholesterolemia E78.00 Impaired glucose tolerance R73.02 Gastroesophageal reflux disease without esophagitis K21.9 Esophagitis presence: without esophagitis Irritable bowel syndrome with constipation K58.1 UTI (urinary tract infection) N39.0 Intractable chronic migraine without aura and without status migrainosus G43.719 Intractability: intractable Migraine type: chronic migraine (15 or more days per month) without aura Status migrainosus presence: without status migrainosus SOB (shortness of breath) R06.02 Assessment & Plan Assessment & Plan (1) Hypercholesterolemia: Code(s): E78.00 - Pure hypercholesterolemia, unspecified Category: Medical Plan: Avoid fried foods, chicken skin, eggs, butter margarine, pastries and meat. Be it pork or beef they have a lot of cholesterol on atorvastatin 20 mg once a day and fenofibrate 160 mg once a day (2) Impaired glucose tolerance: Code(s): R73.02 - Impaired glucose tolerance (oral) Category: Medical Plan: Decrease the amount of carbohydrate intake, pasta, bread, rice and potatoes are all sugar and that is aside from all the sweet stuff, remember that fruits are good but they are Sweet also. (3) GERD (gastroesophageal reflux disease): Code(s): K21.9 - Gastro-esophageal reflux disease without esophagitis Category: Medical Qualifiers: Esophagitis presence: without esophagitis Qualified Code(s): K21.9 - Gastro-esophageal reflux disease without esophagitis Plan: Avoid the foods that causes that usually spicy foods, tomato products, juices, coffee, soda and foods that your sensitive to. After eating do not lie down, allow 3-4 hours before in lie down. And keep the head of bed above 30 degrees to avoid the acid from going up. Patient has been seeing Gastroenterology and was given additional famotidine at night (4) Irritable bowel syndrome with constipation: Code(s): K58.1 - Irritable bowel syndrome with constipation Category: Medical Plan: Patient was prescribed dicyclomine p.r.n. (5) UTI (urinary tract infection): Code(s): N39.0 - Urinary tract infection, site not specified Category: Medical Plan: Macrobid prescription sent in (6) Migraine: Code(s): G43.909 - Migraine, unspecified, not intractable, without status migrainosus Category: Medical Qualifiers: Intractability: intractable Migraine type: chronic migraine (15 or more days per month) without aura Status migrainosus presence: without status migrainosus Qualified Code(s): G43.719 - Chronic migraine without aura, intractable, without status migrainosus Plan: Patient is advised to eat healthy, keep well hydrated, keep active and have adequate sleep. (7) SOB (shortness of breath): Code(s): R06.02 - Shortness of breath Category: Medical Plan: Patient has seen Pulmonary and was advised to get a pulmonary function test Plan Plan Patient was informed and verbally consented to the use of an ambient scribe for clinic note documentation during this visit. 1. Urinary Tract Infection The patient's urinalysis revealed a white blood cell count of 21-50, which is indicative of an infection. A prescription for Macrobid has been sent. The patient was instructed to begin the antibiotic as soon as possible. A follow-up urine test will be ordered to be completed after the course of treatment. 2. Hypercholesterolemia The patient's LDL cholesterol is at goal (124 mg/dL), but her triglycerides remain elevated at 180 mg/dL, despite showing improvement from a previous level of 267 mg/dL. She will continue her current regimen of atorvastatin 20 mg and fenofibrate 160 mg daily. We will recheck her lipids in 3 months. 3. Impaired Glucose Tolerance The patient's recent blood sugar was 109 mg/dL, which falls within the prediabetic range. The plan is to continue monitoring, and we will recheck her sugar in 3 months. 4. Gi Issues (Ibs/Gerd) The patient is followed by gastroenterology for her symptoms. She will continue with her prescribed medications, including famotidine at night and dicyclomine. 5. Dyspnea The patient is followed by a maintenance service supervisor and has been advised to undergo a repeat pulmonary function test. A chest CT may be considered if abnormalities are found on the PFT. 6. Vitamin D Deficiency The patient's vitamin D level remains low, and she reports not taking her supplement. She was advised to resume supplementation. 7. Cervicalgia And Headache The patient reports daily headaches, neck pain that she attributes to chronic arthritis, and hand paresthesias. She inquired about eligibility for disability benefits. It was explained that a diagnosis of arthritis alone is insufficient for a disability claim without objective evidence of a disabling condition, such as an MRI. The MRI report is not in her chart, and further assessment requires these results. Discussion Notes I reviewed the patient's recent lab results from June 11 with her. I explained that her blood count, electrolytes, and kidney function are normal, with a slight elevation in eosinophils suggesting allergies. We discussed her blood sugar of 109 mg/dL, placing her in the prediabetic range. Regarding her cholesterol, I noted her LDL is good but her triglycerides, while improved to 180 mg/dL, are still above the goal of <150 mg/dL. I informed her that her vitamin D is still low and that her urinalysis was positive for an infection, which is why she was prescribed an antibiotic. I urged her to start the Macrobid as soon as possible and informed her I would order a follow-up urine test to be done after she finishes the treatment. Her ear exam was unremarkable, and I reassured her that the itching is likely related to her allergies. We discussed her request for disability paperwork for her chronic neck pain. I explained that a diagnosis of arthritis by itself is not sufficient and that I would need objective evidence, such as an MRI report showing a disabling condition, which is not currently in her chart. I also informed her that the results for her recent sleep study are not yet available. Patient Instructions - Please start taking the Macrobid antibiotic for your bladder infection as soon as possible. - After you finish the antibiotic, please go for the follow-up urine test that was ordered. - Continue taking your cholesterol medications (atorvastatin and fenofibrate) as prescribed. - It is important to start taking your Vitamin D supplement again as your levels are low. - Follow up with your lung doctor to schedule the recommended lung function test. - If you would like me to review your case for disability, you must provide the reports from your neck MRI. - We will check your blood tests for sugar and cholesterol again in 3 months. Orders: Orders UA CC w/rflx Micro + Cult 2 Months N39.0 - Urinary tract infection, site not specified, R30.0 - Dysuria Complete Blood Count Auto Diff 2 Months E78.00 - Pure hypercholesterolemia, unspecified Comprehensive Met. Panel 2 Months E78.00 - Pure hypercholesterolemia, unspecified Hemoglobin A1c 2 Months E78.00 - Pure hypercholesterolemia, unspecified Lipid Panel 2 Months E78.00 - Pure hypercholesterolemia, unspecified Vitamin D 25-OH Total 2 Months E78.00 - Pure hypercholesterolemia, unspecified Free T4 (Free Thyroxine) 2 Months E78.00 - Pure hypercholesterolemia, unspecified Thyroid Stimulating Hormone 2 Months E78.00 - Pure hypercholesterolemia, unspecified Vitamin B12 and Folate 2 Months E78.00 - Pure hypercholesterolemia, unspecified
== END 2025-06-13 15:11 | disposition home or self-care (01) ==
LOC: HO.HMCH 14:31
PROVIDERS: PCP Internal Medicine; Visit Provider Internal Medicine
DX: E78.00 Pure hypercholesterolemia, unspecified (principal); R73.02 Impaired glucose tolerance (oral); K21.9 Gastro-esophageal reflux disease without esophagitis; K58.1 Irritable bowel syndrome with constipation; N39.0 Urinary tract infection, site not specified; G43.719 Chronic migraine without aura, intractable, without status migrainosus; R06.02 Shortness of breath

== ENCOUNTER → 2025-06-13 14:30 | Outpatient (BNVA) | payer OTHER, SELFPAY | PROVIDERS: PCP Internal Medicine; Visit Provider Internal Medicine | DX: F41.1 Generalized anxiety disorder (principal); M54.16 Radiculopathy, lumbar region; E78.00 Pure hypercholesterolemia, unspecified; K21.9 Gastro-esophageal reflux disease without esophagitis; R73.02 Impaired glucose tolerance (oral); K58.1 Irritable bowel syndrome with constipation; N39.0 Urinary tract infection, site not specified; G43.719 Chronic migraine without aura, intractable, without status migrainosus; R06.02 Shortness of breath | CPT/HCPCS: 99212 ==

== ENCOUNTER 2025-06-27 13:03 | Outpatient (REF) | payer OTHER, SELFPAY ==
[2025-06-27 13:52] LABS: Appearance Urine Clear; Glucose Urine UA Negative (Negative); PH 5.5 (5.0-9.0); Specific Gravity - Urine 1.025 (1.005-1.025); UMIC TRIGGER UACC YES
--- OUTSIDE RECORDS SUMMARY | 2025-06-27 16:42 | XMS_ITS | Encounter Summary ---
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
--- OUTSIDE RECORDS SUMMARY | 2025-06-27 16:43 | XMS_ITS | Clinical Summary ---
Author Organization [facility] Address [address] [place] [address] Phone Care Team Providers Care Hack Driver Name Role Phone Gigi Barrow MD Primary Care Provider [phone] Allergies Active Allergy Reactions Criticality Noted Date [...] We requested her US results from [facility], but they will not fax for 48 [...] Office Visit [facility]stetrics [facility] [address] [place], [place] [address]nn[place] [address] Luly Brown DO Abnormal uterine bleeding (Primary Dx) 05/02/2025 [facility]phone [facility] [address] [place] [address] Irene [place] [phone] Luly Brown DO 04/27/2025 Telephone Obstetrics [facility]necology - [facility] [address] [place] [address] Luly Brown DO 04/27/2025 Results Follow-Up Obstetrics and Gynecology - [facility] [address] [place] [address] Fozia Sawant MA 04/25/2025 Telephone Obstetrics and Gynecology - [facility] [address] [place] [address] Luly Brown DO 04/20/2025 9:00 AM EDT - 04/20/2025 10:30 AM EDT Surgery [facility] OR [address] [place] [phone] Luly Brown DO HYSTEROSCOPY with D&C & MYOSURE [34561 (CPT )] 04/20/2025 8:42 AM EDT Anesthesia Event [facility] OR [address] [place] [phone] Feliciano Padilla DO 04/20/2025 7:18 AM EDT - 04/20/2025 11:15 AM EDT Hospital Encounter [facility] OR [address] [place] [phone] Luly Brown DO Postmenopausal bleeding Discharge Disposition: Home or Self Care 04/19/2025 Telephone Obstetrics and Gynecology - [facility] [address] [place] [address] Luly Brown DO from Last 3 Months [...] 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 Not on file [...] LMA(NO CHARGE) Routine 04/20/2025 8:54 AM EDT [place] HYSTEROSCOPY W/BIOPSY ENDOMETRIUM AND/OR POLYPECTOMY W/O AND/OR [...] and culture (04/26/2025 12:01 PM EDT) Specific [place] Urine 1.041(H) 1.003 - 1.030 LAB URINALYSIS - AUTOMATED METHOD [facility], Urine 5.0 5.0 - 8.0 pH LAB URINALYSIS - AUTOMATED METHOD 04/26/2025 1:18 PM [facility] Leukocytes, Urine Moderate(A) Negative LAB URINALYSIS - AUTOMATED METHOD 04/26/2025 1:18 PM [facility] Nitrite, Urine Negative Negative LAB URINALYSIS - AUTOMATED METHOD 04/26/2025 1:18 PM [facility] Protein, Urine 100(A) <=Trace mg/dL LAB URINALYSIS - AUTOMATED METHOD 04/26/2025 1:18 PM [facility] Glucose, Urine Negative Negative mg/dL LAB URINALYSIS - AUTOMATED METHOD 04/26/2025 1:18 PM [facility] Ketones, Urine Trace(A) Negative mg/dL LAB URINALYSIS - AUTOMATED METHOD 04/26/2025 1:18 PM [facility] Urobilinogen , Urine 1.0 0.2 - 1.0 mg/dL LAB URINALYSIS - AUTOMATED METHOD 04/26/2025 1:18 PM [facility] Bilirubin, Urine Negative Negative LAB URINALYSIS - AUTOMATED METHOD 04/26/2025 1:18 PM EDT [facility] Blood, Urine Large(A) Negative LAB URINALYSIS - AUTOMATED METHOD 04/26/2025 1:18 PM EDT [facility] RBC, Urine 3,018.9(H) 0 - 4 /HPF LAB URINALYSIS - AUTOMATED METHOD 04/26/2025 1:18 PM EDT [facility] WBC, Urine 20.0(H) 0 - 4 /HPF LAB URINALYSIS - AUTOMATED METHOD 04/26/2025 1:18 PM EDT [facility] Squamous Epithelial, Urine 14 0 - 60 /LPF LAB URINALYSIS - AUTOMATED METHOD 04/26/2025 1:18 PM EDT [facility] Bacteria, Urine Negative Negative /HPF LAB URINALYSIS - AUTOMATED METHOD 04/26/2025 1:18 PM EDT [facility] Hyaline Casts, Urine 3.0 0 - 3 /LPF LAB URINALYSIS - AUTOMATED METHOD 04/26/2025 1:18 PM EDT [facility] Urine Urine specimen obtained by clean catch procedure / Unknown Non-blood Collection / Unknown 04/26/2025 12:01 PM EDT 04/26/2025 12:49 PM EDT Luly Brown DO LAB URINE ORDERABLES Final Re sult [facility] [address] [place] [address], * Horton urine culture tube (04/26/2025 12:01 PM EDT) Extra Tube Hold for add-ons. 04/26/2025 2:01 PM EDT [facility] Comment:Auto resulted. Urine Urine specimen obtained by clean catch procedure / Unknown Non-blood Collection / Unknown 04/26/2025 12:01 PM EDT 04/26/2025 12:51 PM EDT Luly Stephanie LAB URINE ORDERABLES Final Re sult Performing Organization Address City/[facility]/ZIP Co de Phone Number [facility] [address] [place] [address], [place] [phone] * Culture urine (04/26/2025 12:01 PM EDT) Culture, Urine <10,000 CFU/mL gram negative bacilli, insignificant count, no further workup 04/27/2025 10:00 AM EDT [facility] Urine Urine specimen obtained by clean catch procedure / Unknown Non-blood Collection / Unknown 04/26/2025 12:01 PM EDT 04/26/2025 1:18 PM EDT Luly Stephanie LAB MICROBIOLOGY - GENERAL OR DERABLES Final Result Performing Organization Address [facility]/ZIP Co de Phone Number [facility] [address] [place] [address], [place] [phone] * Tissue exam (04/20/2025 9:04 AM EDT) Final Diagnosis Endometrial polyp, MyoSure resection: Benign endometrial polyp Inactive endometrium 04/21/2025 9:55 AM EDT [facility] at 0955 EDT Gross Description A. Endometrium, Polyp: Labeled endometri endo- . Received in formalin, in a mesh bag, is a 2.0 x 0.8 x 0.2 cm aggregate of soft to rubbery, garcia-white to pink-red shredded portions of tissue which are wrapped in paper and submitted in toto in one cassette, multiple pieces, x 2. TS 04/21/2025 9:55 AM EDT [facility] Disclaimer Unless otherwise specified, all tissue is 10% NB formalin fixed and paraffin embedded. 04/21/2025 9:55 AM EDT [facility] Tissue Endometrial structure / Unknown 04/20/2025 9:04 AM EDT 04/20/2025 10:20 AM EDT Result [facility] Luly Brown DO LAB PATHOLOGY ORDERABLES Joy l Result [facility] [address] [place] [address], * TH AN LMA(NO CHARGE) (04/20/2025 8:54 AM EDT) Darcy Gomez CRNA - 04/20/2025 8:54 AM EDT Darcy Nava CRNA 04/20/2025 8:54 AM General Information and Staff Patient location during procedure: OR Performed by: Darcy Nava CRNA Authorized by: Feliciano Paidlla DO Intubation Airway not difficult Urgency: elective [...] hospital Cervical Cancer Screening: HPV Negative,A bstracted Historical Provider HEALTH MAINTENANCE Final Result * Hepatitis C Screening (10/21/2023) [facility] Hepatitis C Screening Abstracted Historical Provider HEALTH MAINTENANCE Final Result * Lipid panel (02/26/2012) [facility] LDL/HDL Ratio 0 Comment:no interpetation,Abs tracted [...] Most Recently Relevant to Health Maintenance Insurance [facility] [employer] Advance Directives * Full Code - [...] currently active code status orders. Care Teams Hack Driver Relationship Specialty Start Date End Date Gigi Barrow MD [address] [place] [address] [address] [facility] [place] [address] PCP - General Internal Medicine 02/20/16
--- OUTSIDE RECORDS SUMMARY | 2025-06-27 16:43 | XMS_ITS | Clinical Summary ---
Author Organization [facility] Address [address] [address] Phone Care Team Providers Care Allergist/Immunologist Name Role Phone Gigi Barrow MD Primary Care Provider [phone] Allergies Active Allergy Reactions Criticality Noted Date Comments Sulfamethoxazole-Trimethoprim Rash Low 2024 Latex 06/17/2021 Metoclopramide Hcl 06/17/2021 Sulfa (Sulfonamide Antibiotics) 05/29 Medications norethindrone (AYGESTIN) 5 mg tablet Take 1 tablet (5 mg total) by mouth daily. 30 tablet 04/30/2025 Active Encounters Date Type Department Care Team Description 04/30/2025 10:55 AM EDT - 04/30/2025 2:38 PM EDT Emergency [facility] [address] [place] [address] Paul Alanis MD Discharge Disposition: Home or [...] HS Gen5 <6 0 - 9 ng/L [facility] Blood 04/30/2025 12:3 4 PM EDT 04/30/2025 12:51 PM EDT us Paul Alanis MD LAB BLOOD BKR ORDERABLES Final Result [facility] [address] [place] [address] * Hold Specimen In Blood Bank (04/30/2025 11:24 AM EDT) Expiration Date of Sample 05/03/2025 ,2359 [facility] Resulting Agency [facility] Blood 04/30/2025 11:2 4 AM EDT 04/30/2025 11:35 AM EDT us Paul Alanis MD LAB BLOOD BANK TEST ORDERABLES Final Result [address] [address] * LFTs (hepatic panel) (04/30/2025 11:24 AM EDT) ALKALINE PHOSPHATASE 86 39 - 117 U/L [facility] TOTAL BILIRUBIN 0.3 0.0 - 1.2 mg/dL [facility] DIRECT BILIRUBIN <0.1 0.0 - 0.2 mg/dL [facility] Bilirubin (Indirect) NOT CALCULATED 0 - 1.5 mg/dL [facility] AST 15 0 - 37 U/L [facility] ALT 16 0 - 40 U/L [facility] TOTAL PROTEIN 7.3 6.5 - 8.0 g/dL [facility] ALBUMIN 4.3 3.9 - 4.8 g/dL [facility] GLOBULIN 3.0 1 - 4.8 g/dL [facility] A/G Ratio 1.43 1.00 - 4.80 RATIO [facility] Blood 04/30/2025 11:2 4 AM EDT 04/30/2025 11:34 AM EDT us Paul Alanis MD LAB BLOOD BKR ORDERABLES Final Result [address] [address] * CBC and differential (04/30/2025 11:24 AM EDT) WBC 7.92 4.00 - 11.00 K/uL [facility] RBC 4.66 4.00 - 5.20 M/uL [facility] HGB 13.6 12.0 - 16.0 g/dL [facility] HCT 40.7 36.0 - 46.0 % [facility] PLT 337 150 - 450 K/uL [facility] MCV 87.3 80.0 - 100.0 fL [facility] MCH 29.2 27.0 - 31.0 pg [facility] MCHC 33.4 32.0 - 36.0 g/dL [facility] RDW 12.7 11.5 - 14.5 % [facility] MPV 9.7 8.4 - 12.0 fL [facility] NRBC 0.00 0.00 /100 WBCs [facility] ABSOLUTE NRBC 0.00 0.00 K/uL [facility] DIFF METHOD Auto [facility] NEUTS 56.2 48.0 - 76.0 % [facility] LYMPHS 33.3 18.0 - 41.0 % [facility] MONOS 7.4 4.0 - 11.0 % [facility] EOS 2.1 0.0 - 5.0 % [facility] BASOS 0.5 0.0 - 1.5 % [facility] Granulocytes, immature (%) 0.5 0.0 - 0.9 % [facility] ABSOLUTE NEUTS 4.44 1.92 - 7.60 K/uL [facility] ABSOLUTE LYMPHS 2.64 0.72 - 4.10 K/uL [facility] ABSOLUTE MONOS 0.59 0.16 - 1.10 K/uL [facility] ABSOLUTE EOS 0.17 0.00 - 0.50 K/uL [facility] ABSOLUTE BASOS 0.04 0.00 - 0.15 K/uL [facility] Granulocytes, immature 0.04 0.00 - 0.09 K/uL [facility] Blood 04/30/2025 11:2 4 AM EDT 04/30/2025 11:34 AM EDT us Paul Alanis MD LAB BLOOD BKR ORDERABLES Final Result [facility] [address] [place] [address] * NT-proBNP (04/30/2025 11:24 AM EDT) NT-PROBNP <36 0 - 125 pg/mL [facility] Blood 04/30/2025 11:2 4 AM EDT 04/30/2025 11:34 AM EDT Paul Alanis MD LAB BLOOD BKR ORDERABLES Final Result Performing Organization Address City/[facility]/ZIP Co de Phone Number [address] [address] * (ABNORMAL) Lipase (04/30/2025 11:24 AM EDT) Pathologist [facility] LIPASE 66(H) 16 - 63 U/L [facility] Blood 04/30/2025 11:2 4 AM EDT 04/30/2025 11:34 AM EDT us Paul Alanis MD LAB BLOOD BKR ORDERABLES Final Result Performing Organization Address [facility] Co de Phone Number [address] [address] * (ABNORMAL) Basic metabolic panel (04/30/2025 11:24 AM EDT) Pathologist [facility] SODIUM 137 133 - 146 mmol/L [facility] CHLORIDE 103 96 - 108 mmol/L [facility] POTASSIUM 4.0 3.3 - 5.1 mmol/L [facility] CO2 23 21 - 35 mmol/L [facility] BUN 16 6 - 19 mg/dL [facility] CREATININE 0.50 0.5 - 1.5 mg/dL [facility] GLUCOSE 105(H) 70 - 99 mg/dL [facility] CALCIUM 9.3 8.4 - 10.3 mg/dL [facility] EGFR 111 >59 mL/min/1.7 3m2 [facility] Comment:Estimated glomerular filtration rate calculated using the CKD-EPI refit equation. ANION GAP 15 10 - 20 mmol/L [facility] Blood 04/30/2025 11:2 4 AM EDT 04/30/2025 11:34 AM EDT us Paul Alanis MD LAB BLOOD BKR ORDERABLES Final Result [facility] [address] [place] [address] * XR CHEST PA AND LATERAL 2 [...] (04/30/2025 10:59 AM EDT) COLOR Yellow Yellow [facility] CLARITY Clear [facility] GLUCOSE Negative Negative [facility] BILI Negative Negative [facility] KETONES Negative Negative [facility] SPECIFIC GRAVITY 1.010 1.005 - 1.030 [facility] BLOOD 3+(A) Negative [facility] PH 6.0 5.0 - 8.0 [facility] Protein-UA Negative Negative [facility] NITRITE Negative Negative [facility] Leukocyte esterase, ur Negative Negative [facility] Urine (Urine) 04/30/2025 10: 59 AM EDT 04/30/2025 11:08 AM EDT us Paul Alanis MD LAB URINE ORDERABLES Final Resu lt Performing Organization Address [facility] Co de Phone Number [address] [address] * (ABNORMAL) Urine sediment (04/30/2025 10:59 AM EDT) WBC 0-4(A) NONE SEEN /hpf [facility] RBC 50-100(A) NONE SEEN /hpf [facility] URINE EPITHELIAL 0-4(A) NONE SEEN [facility] MUCUS NONE SEEN NONE SEEN /hpf [facility] BACTERIA Trace(A) NONE SEEN /hpf [facility] 04/30/2025 10:5 9 AM EDT 04/30/2025 11:08 AM EDT us Paul Alanis MD LAB URINE ORDERABLES Final Resu lt Performing Organization Address [facility] Co de Phone Number [address] [address] * ECG 12-LEAD (04/30/2025 10:47 AM EDT) Ventricular Rate EKG/MIN 76 BPM [facility] Atrial Rate 76 BPM [facility] [place] Interval 170 ms [facility] QRS Duration 90 ms [facility] QT Interval 400 ms [facility] QTC Interval 450 ms [facility] P [place] 59 degrees [facility] R Wave [place] 37 degrees [facility] T Wave [place] 60 degrees [facility] 04/30/2025 10:4 7 AM EDT 05/01/2025 9:20 AM EDT Narrative [facility] - 05/01/2025 9:20 AM EDT Normal sinus rhythm Low voltage QRS Borderline ECG No previous ECGs available Confirmed by Kvng DUONG ([id number]) on 05/01/2025 9:20:53 AM us Paul Alanis MD ECG ORDERABLES Final Result [facility] from Last 3 Months Insurance [facility] ACO [facility] ACO [facility] [place] [address] [place] [address] [place] [id number] [place] [address] ACO ACO ACO [facility] ACO Care Teams Allergist/Immunologist Relationship Specialty Start Date End Date Gigi Barrow MD [address] [place] [phone] PCP - General Internal Medicine 06/17/21 Additional Source Comments The information contained in this document represents components of the legal health record. It is not the complete legal health record.[facility]
== END 2025-06-27 13:04 | disposition home or self-care (01) ==
LOC: HO.LAB 13:03
PROVIDERS: PCP Internal Medicine; Visit Provider Internal Medicine
DX: R30.0 Dysuria (principal); E78.00 Pure hypercholesterolemia, unspecified
CPT/HCPCS: 81001

== ENCOUNTER 2025-07-22 15:12 | Outpatient (REF) | payer OTHER, SELFPAY ==
--- OUTSIDE RECORDS SUMMARY | 2025-07-22 15:15 | XMS_ITS | Clinical Summary ---
Author Organization [facility] Address [address] [place] [address] Phone Care Team Providers Care Elevator Troubleshooter Name Role Phone Gigi Barrow MD Primary Care Provider [phone] Allergies Active Allergy Reactions Criticality Noted Date [...] GI. We requested her US results from [facility], but they will [...] Office Visit Obst[facility]s [facility] [address] [place], [place] [address] [address] Luly Brown DO Abnormal uterine bleeding (Primary Dx) 05/02/2025 [facility]phone [facility] [address] [place] [address] Irene [place] [phone] Luly Brown DO 04/27/2025 Telephone [facility] [address] [facility] [place] [address] Luly Brown DO 04/27/2025 Results Follow-Up [facility] [address] [facility] [address] Fozia Sawant MA 04/25/2025 Telephone [facility]s [facility] [address] [facility] [place] [phone] Luly Brown, from Last 3 Months Immunizations Immunization Administration [...] 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 Not on file Not [...] Health Maintenance Due Date Last Done Comments Drug Screen 1970 Non-Opioid Controlled Substance Agreement 1970 Hepatitis B Vaccines (1 of 3 - 19+ 3-dose series) 1988 Pneumococcal Vaccine: 50+ Years (1 of 1 - PCV) 12/09/2019 Colorectal Cancer Screening: Colonoscopy 04/26/2021 04/26/2011 Cholesterol Screening (Lipid Panel) 07/06/2022 02/26/2012 HIV Screening 07/06/2022 Social Influencers of Health Screening 07/06/2022 Depression Screening 07/28/2024 COVID-19 Vaccine ( - 2024- season) 2025 12/13/2020, 11/15/2020 Influenza [...] EDT Urinary frequency Pelvic pressure in female MG MAMMO DIGITAL DIAGNOSTIC BILAT Routine 08/25/2024 3:11 PM EST HM HPV Routine 10/21/2023 HM HEPATITIS C SCREENING Routine 10/21/2023 LIPID PANEL Routine 02/26/2012 HM COLONOSCOPY Routine 04/26/2011 from Last 3 Months or Most Recently Relevant to Health Maintenance Results * (ABNORMAL) Urinalysis with reflex microscopic and culture (04/26/2025 12:01 PM EDT) Specific [place] Urine 1.041(H) 1.003 - 1.030 LAB URINALYSIS - AUTOMATED METHOD 04/26/2025 1:18 PM [facility] pH, Urine 5.0 5.0 - 8.0 pH LAB URINALYSIS - AUTOMATED METHOD 04/26/2025 1:18 PM [facility] Leukocytes, Urine Moderate(A) Negative LAB URINALYSIS - AUTOMATED METHOD 04/26/2025 1:18 PM [facility] Nitrite, Urine Negative Negative LAB URINALYSIS - AUTOMATED METHOD 04/26/2025 1:18 PM [facility] Protein, Urine 100(A) <=Trace mg/dL LAB URINALYSIS - AUTOMATED METHOD 04/26/2025 1:18 PM [facility] Glucose, Urine Negative Negative mg/dL LAB URINALYSIS - AUTOMATED METHOD 04/26/2025 1:18 PM [facility] Ketones, Urine Trace(A) Negative mg/dL LAB URINALYSIS - AUTOMATED METHOD 04/26/2025 1:18 PM [facility] Urobilinogen , Urine 1.0 0.2 - 1.0 mg/dL LAB URINALYSIS - AUTOMATED METHOD 04/26/2025 1:18 PM [facility] Bilirubin, Urine Negative Negative LAB URINALYSIS - AUTOMATED METHOD 04/26/2025 1:18 PM [facility] Blood, Urine Large(A) Negative LAB URINALYSIS - AUTOMATED METHOD 04/26/2025 1:18 PM [facility] RBC, Urine 3,018.9(H) 0 - 4 /HPF LAB URINALYSIS - AUTOMATED METHOD 04/26/2025 1:18 PM [facility] WBC, Urine 20.0(H) 0 - 4 /HPF LAB URINALYSIS - AUTOMATED METHOD 04/26/2025 1:18 PM [facility] Squamous Epithelial, Urine 14 0 - 60 /LPF LAB URINALYSIS - AUTOMATED METHOD 04/26/2025 1:18 PM [facility] Bacteria, Urine Negative Negative /HPF LAB URINALYSIS - AUTOMATED METHOD 04/26/2025 1:18 PM [facility] Hyaline Casts, Urine 3.0 0 - 3 /LPF LAB URINALYSIS - AUTOMATED METHOD 04/26/2025 1:18 PM [facility] Urine Urine specimen obtained by clean catch procedure / Unknown Non-blood Collection / Unknown 04/26/2025 12:01 PM EDT 04/26/2025 12:49 PM EDT Luly Brown DO LAB URINE ORDERABLES Final Re sult Performing Organization Address City/[facility]/ZIP Co de Phone Number [facility] [address] [place] [address], * Horton urine culture tube (04/26/2025 12:01 PM EDT) Extra Tube Hold for add-ons. 04/26/2025 2:01 PM EDT [facility] Comment:Auto resulted. Urine Urine specimen obtained by clean catch procedure / Unknown Non-blood Collection / Unknown 04/26/2025 12:01 PM EDT 04/26/2025 12:51 PM EDT Luly Stephanie [facility] URINE ORDERABLES Final Re sult Performing Organization Address [facility] Co de Phone Number [facility] [address] [place] [address], * Culture urine (04/26/2025 12:01 PM EDT) Culture, Urine <10,000 CFU/mL gram negative bacilli, insignificant count, no further workup 04/27/2025 10:00 AM EDT [facility] Urine Urine specimen obtained by clean catch procedure / Unknown Non-blood Collection / Unknown 04/26/2025 12:01 PM EDT 04/26/2025 1:18 PM EDT [facility] - GENERAL OR DERABLES Final Result Performing Organization Address [facility]/ZIP Co de Phone Number [facility] [address] [place] [address], * MG Mammo Digital Diagnostic bilat (08/25/2024 3:11 PM EST) Anatomical Region Laterality Modality Breast Bilateral Mammography Historical Provider MD OWUSU BI PROCEDURES Final R esult * Hm Cervical Cancer Screening: HPV (10/21/2023) Pathologist [facility] Cervical Cancer Screening: HPV Negative,A bstracted [facility] Provider HEALTH MAINTENANCE Final Result * Hepatitis C Screening (10/21/2023) [facility] Hepatitis C Screening Abstracted [facility] Provider HEALTH MAINTENANCE Final Result * Lipid panel (02/26/2012) [facility] LDL/HDL Ratio 0 Comment:no interpetation,Abs tracted Triglycerides 0 mg/dL Comment:no interpetation,Abs tracted Cholesterol 0 mg/dL Comment:no interpetation,Abs tracted HDL 0 mg/dL Comment:no interpetation,Abs tracted LDL Cholesterol 0 mg/dL Comment:no interpetation,Abs tracted Blood Venous blood specimen / Unknown Result [facility] Provider LAB BLOOD ORDERABLES Joy l Result * Colonoscopy (04/26/2011) Pathologist [facility] Colonoscopy no interpreta tion,Abstr acted Anatomical Region Laterality Modality Other [facility] Provider HEALTH MAINTENANCE Final Result from Last 3 Months or Most Recently Relevant to Health Maintenance Insurance HEALTH PLAN Advance Directives * Full Code [...] currently active code status orders. Care Teams Elevator Troubleshooter Relationship Specialty Start Date End Date Gigi Barrow MD [address] [place] [address] [address] [facility] [place] [address] PCP - General Internal Medicine 02/20/16
--- OUTSIDE RECORDS SUMMARY | 2025-07-22 15:15 | XMS_ITS | Clinical Summary ---
Author Organization [facility] Address [address] [address] Phone Care Team Providers Care [employer] Teacher Name Role Phone Gigi Barrow MD Primary Care Provider [phone] Allergies Active Allergy Reactions Criticality Noted Date Comments Sulfamethoxazole-Trimethoprim Rash Low 2024 Latex 06/17/2021 Metoclopramide Hcl 06/17/2021 Sulfa (Sulfonamide Antibiotics) 05/29 Medications norethindrone (AYGESTIN) 5 mg tablet Take 1 tablet (5 mg total) by mouth daily. 30 tablet 04/30/2025 Active Encounters Date Type Department Care Team Description 04/30/2025 10:55 AM EDT - 04/30/2025 2:38 PM EDT Emergency [facility] [address] [place] [address] Paul Alanis MD Discharge Disposition: Home or [...] HS Gen5 <6 0 - 9 ng/L [facility] Blood 04/30/2025 12:3 4 PM EDT 04/30/2025 12:51 PM EDT us Paul Alanis MD LAB BLOOD BKR ORDERABLES Final Result [facility] [address] [place] [address] * Hold Specimen In Blood Bank (04/30/2025 11:24 AM EDT) Expiration Date of Sample 05/03/2025 ,2359 [facility] Resulting Agency [facility] Blood 04/30/2025 11:2 4 AM EDT 04/30/2025 11:35 AM EDT us Paul Alanis MD LAB BLOOD BANK TEST ORDERABLES Final Result [address] [address] * LFTs (hepatic panel) (04/30/2025 11:24 AM EDT) ALKALINE PHOSPHATASE 86 39 - 117 U/L [facility] TOTAL BILIRUBIN 0.3 0.0 - 1.2 mg/dL [facility] DIRECT BILIRUBIN <0.1 0.0 - 0.2 mg/dL [facility] Bilirubin (Indirect) NOT CALCULATED 0 - 1.5 mg/dL [facility] AST 15 0 - 37 U/L [facility] ALT 16 0 - 40 U/L [facility] TOTAL PROTEIN 7.3 6.5 - 8.0 g/dL [facility] ALBUMIN 4.3 3.9 - 4.8 g/dL [facility] GLOBULIN 3.0 1 - 4.8 g/dL [facility] A/G Ratio 1.43 1.00 - 4.80 RATIO [facility] Blood 04/30/2025 11:2 4 AM EDT 04/30/2025 11:34 AM EDT us Paul Alanis MD LAB BLOOD BKR ORDERABLES Final Result [address] [address] * CBC and differential (04/30/2025 11:24 AM EDT) WBC 7.92 4.00 - 11.00 K/uL [facility] RBC 4.66 4.00 - 5.20 M/uL [facility] HGB 13.6 12.0 - 16.0 g/dL [facility] HCT 40.7 36.0 - 46.0 % [facility] PLT 337 150 - 450 K/uL [facility] MCV 87.3 80.0 - 100.0 fL [facility] MCH 29.2 27.0 - 31.0 pg [facility] MCHC 33.4 32.0 - 36.0 g/dL [facility] RDW 12.7 11.5 - 14.5 % [facility] MPV 9.7 8.4 - 12.0 fL [facility] NRBC 0.00 0.00 /100 WBCs [facility] ABSOLUTE NRBC 0.00 0.00 K/uL [facility] DIFF METHOD Auto [facility] NEUTS 56.2 48.0 - 76.0 % [facility] LYMPHS 33.3 18.0 - 41.0 % [facility] MONOS 7.4 4.0 - 11.0 % [facility] EOS 2.1 0.0 - 5.0 % [facility] BASOS 0.5 0.0 - 1.5 % [facility] Granulocytes, immature (%) 0.5 0.0 - 0.9 % [facility] ABSOLUTE NEUTS 4.44 1.92 - 7.60 K/uL [facility] ABSOLUTE LYMPHS 2.64 0.72 - 4.10 K/uL [facility] ABSOLUTE MONOS 0.59 0.16 - 1.10 K/uL [facility] ABSOLUTE EOS 0.17 0.00 - 0.50 K/uL [facility] ABSOLUTE BASOS 0.04 0.00 - 0.15 K/uL [facility] Granulocytes, immature 0.04 0.00 - 0.09 K/uL [facility] Blood 04/30/2025 11:2 4 AM EDT 04/30/2025 11:34 AM EDT us Paul Alanis MD LAB BLOOD BKR ORDERABLES Final Result [facility] [address] [place] [address] * NT-proBNP (04/30/2025 11:24 AM EDT) NT-PROBNP <36 0 - 125 pg/mL [facility] Blood 04/30/2025 11:2 4 AM EDT 04/30/2025 11:34 AM EDT Paul Alanis MD LAB BLOOD BKR ORDERABLES Final Result Performing Organization Address City/[facility]/ZIP Co de Phone Number [address] [address] * (ABNORMAL) Lipase (04/30/2025 11:24 AM EDT) Pathologist [facility] LIPASE 66(H) 16 - 63 U/L [facility] Blood 04/30/2025 11:2 4 AM EDT 04/30/2025 11:34 AM EDT us Paul Alanis MD LAB BLOOD BKR ORDERABLES Final Result Performing Organization Address [facility] Co de Phone Number [address] [address] * (ABNORMAL) Basic metabolic panel (04/30/2025 11:24 AM EDT) Pathologist [facility] SODIUM 137 133 - 146 mmol/L [facility] CHLORIDE 103 96 - 108 mmol/L [facility] POTASSIUM 4.0 3.3 - 5.1 mmol/L [facility] CO2 23 21 - 35 mmol/L [facility] BUN 16 6 - 19 mg/dL [facility] CREATININE 0.50 0.5 - 1.5 mg/dL [facility] GLUCOSE 105(H) 70 - 99 mg/dL [facility] CALCIUM 9.3 8.4 - 10.3 mg/dL [facility] EGFR 111 >59 mL/min/1.7 3m2 [facility] Comment:Estimated glomerular filtration rate calculated using the CKD-EPI refit equation. ANION GAP 15 10 - 20 mmol/L [facility] Blood 04/30/2025 11:2 4 AM EDT 04/30/2025 11:34 AM EDT us Paul Alanis MD LAB BLOOD BKR ORDERABLES Final Result [facility] [address] [place] [address] * XR CHEST PA AND LATERAL 2 VIEWS (04/30/2025 11:23 AM EDT) Anatomical Region Laterality Modality Chest Computed Radiogr aphy 04/30/2025 12:1 5 PM EDT Impressions 04/30/2025 12:15 PM EDT No acute abnormality. Narrative 04/30/2025 12:15 PM EDT XR CHEST PA AND LATERAL 2 VIEWS Referring clinician's provided indication for this examination in [facility]: Dyspnea (Shortness of Breath) COMPARISON: None FINDINGS: Devices/Tubes/Lines: None. Lungs: No focal consolidation or pulmonary edema. Pleura: No pleural effusion or pneumothorax. Heart/Mediastinum: Normal heart and mediastinum. Bones/Soft Tissues: Mild thoracic spine degenerative changes. Procedure Note Anastacio Martin MD, PhD - 04/30/2025 XR CHEST PA AND LATERAL 2 VIEWS Referring clinician's provided indication for this examination in [facility]:Dyspnea (Shortness of Breath) COMPARISON: None FINDINGS: Devices/Tubes/Lines: None. Lungs: No focal consolidation or pulmonary edema. Pleura: No pleural effusion or pneumothorax. Heart/Mediastinum: Normal heart and mediastinum. Bones/Soft Tissues: Mild thoracic spine degenerative changes. IMPRESSION: No acute abnormality. us Paul Alanis MD IMG XR CHEST Final Result * (ABNORMAL) Urinalysis w/reflex Urine Culture (04/30/2025 10:59 AM EDT) COLOR Yellow Yellow [facility] CLARITY Clear [facility] GLUCOSE Negative Negative [facility] BILI Negative Negative [facility] KETONES Negative Negative [facility] SPECIFIC GRAVITY 1.010 1.005 - 1.030 [facility] BLOOD 3+(A) Negative [facility] PH 6.0 5.0 - 8.0 [facility] Protein-UA Negative Negative [facility] NITRITE Negative Negative [facility] Leukocyte esterase, ur Negative Negative [facility] Urine (Urine) 04/30/2025 10: 59 AM EDT 04/30/2025 11:08 AM EDT us Paul Alanis MD LAB URINE ORDERABLES Final Resu lt Performing Organization Address [facility] Co de Phone Number [address] [address] * (ABNORMAL) Urine sediment (04/30/2025 10:59 AM EDT) WBC 0-4(A) NONE SEEN /hpf [facility] RBC 50-100(A) NONE SEEN /hpf [facility] URINE EPITHELIAL 0-4(A) NONE SEEN [facility] MUCUS NONE SEEN NONE SEEN /hpf [facility] BACTERIA Trace(A) NONE SEEN /hpf [facility] 04/30/2025 10:5 9 AM EDT 04/30/2025 11:08 AM EDT us Paul Alanis MD LAB URINE ORDERABLES Final Resu lt Performing Organization Address [facility] Co de Phone Number [address] [address] * ECG 12-LEAD (04/30/2025 10:47 AM EDT) Ventricular Rate EKG/MIN 76 BPM [facility] Atrial Rate 76 BPM [facility] GA Interval 170 ms [facility] QRS Duration 90 ms [facility] QT Interval 400 ms [facility] QTC Interval 450 ms [facility] P [place] 59 degrees [facility] R Wave [place] 37 degrees [facility] T Wave [place] 60 degrees [facility] 04/30/2025 10:4 7 AM EDT 05/01/2025 9:20 AM EDT Narrative [facility] - 05/01/2025 9:20 AM EDT Normal sinus rhythm Low voltage QRS Borderline ECG No previous ECGs available Confirmed by Kvng DUONG ([id number]) on 05/01/2025 9:20:53 AM us Paul Alanis MD ECG ORDERABLES Final Result [facility] from Last 3 Months Insurance [facility] ACO [facility] [place] [address] [place] [address] [place] [id number] [place] [address] ACO ACO ACO [facility] ACO Care Teams [employer] Teacher Relationship Specialty Start Date End Date Gigi Barrow MD [address] [place] [id number] PCP - General Internal Medicine 06/17/21 Additional Source Comments The information contained in this document represents components of the legal health record. It is not the complete legal health record.[facility]
--- OUTSIDE RECORDS SUMMARY | 2025-07-22 15:15 | XMS_ITS | Patient Health Record ---
Author Organization [facility] Address [address] [place] [address] Care Team Providers Care Electrician Assistant Name Role Phone MirandaBill Unavailable [phone] Reason For Referral No Information Plan Of Treatment No Information
[2025-07-22 15:47] LABS: Appearance Urine Clear; Glucose Urine UA Negative (Negative); PH 5.5 (5.0-9.0); Specific Gravity - Urine 1.020 (1.005-1.025); UMIC TRIGGER UACC YES
[2025-07-22 15:59] LABS: UACC Culture Trigger YES
== END 2025-07-22 15:13 | disposition home or self-care (01) ==
LOC: HO.LAB 15:12
PROVIDERS: PCP Internal Medicine; Visit Provider Internal Medicine
DX: R30.0 Dysuria (principal); E78.00 Pure hypercholesterolemia, unspecified; N39.0 Urinary tract infection, site not specified
CPT/HCPCS: 81001; 87086